=== PATIENT | female | born 1950 | race Caucasian/White ===

== ENCOUNTER 2016-11-17 08:00 | Outpatient (CLI) | payer MEDICARE, MEDICAID | END 2016-11-17 08:01 | disposition home or self-care (01) | DX: N39.0 Urinary tract infection, site not specified (principal) ==

== ENCOUNTER 2016-11-24 14:45 | Outpatient (CLI) | payer MEDICARE, MEDICAID | END 2016-11-24 14:46 | disposition home or self-care (01) | DX: L89.43 Pressure ulcer of contiguous site of back, buttock and hip, stage 3 (principal) ==

== ENCOUNTER 2017-04-10 13:40 | Outpatient (CLI) | payer MEDICARE, MEDICAID ==
[2017-04-10 17:38] LABS: BILIRUBIN,URINE NEGATIVE (NEGATIVE)
[2017-04-10 17:40] LABS: UA w/ MICROSCOPIC CHARGE YES
[2017-04-10 17:48] LABS: UR CULTURE IF IND INDICATED; WBC,URINE >25 /HPF (0-5)
== END 2017-04-10 13:41 | disposition home or self-care (01) ==
LOC: LAB.R 13:40
PROVIDERS: ATTEND Family Medicine
DX: N39.0 Urinary tract infection, site not specified (principal)
CPT/HCPCS: 81001; 81003; 87077; 87086

== ENCOUNTER 2017-06-17 14:50 | Outpatient (CLI) | payer MEDICARE, MEDICAID ==
[2017-06-17 14:13] LABS: BILIRUBIN,URINE NEGATIVE (NEGATIVE); PH,URINE 7.5 PH (5.0-7.5)
[2017-06-17 14:16] LABS: UA w/ MICROSCOPIC CHARGE YES
[2017-06-17 14:17] LABS: WBC,URINE >25 /HPF (0-5)
== END 2017-06-17 14:51 | disposition home or self-care (01) ==
LOC: LAB.R 14:50
PROVIDERS: ATTEND Family Medicine
DX: N39.0 Urinary tract infection, site not specified (principal)
CPT/HCPCS: 81001; 81003

== ENCOUNTER 2017-07-01 08:00 | Outpatient (CLI) | payer MEDICARE, MEDICAID | END 2017-07-01 08:01 | disposition home or self-care (01) | LOC: LAB.R 08:00 | PROVIDERS: ATTEND Family Medicine | DX: L89.94 Pressure ulcer of unspecified site, stage 4 (principal) | CPT/HCPCS: 87070; 87077; 87205 ==

== ENCOUNTER 2017-07-29 10:30 | Outpatient (CLI) | payer MEDICARE, MEDICAID ==
[2017-07-29 18:28] LABS: ALBUMIN 3.7 g/dL (3.2-5.5)
== END 2017-07-29 10:31 | disposition home or self-care (01) ==
LOC: LAB.R 10:30
PROVIDERS: ATTEND Family Medicine
DX: L89.43 Pressure ulcer of contiguous site of back, buttock and hip, stage 3 (principal)
CPT/HCPCS: 82040; 84134

== ENCOUNTER 2017-10-01 21:24 | Outpatient (CLI) | payer MEDICARE, MEDICAID | END 2017-10-01 21:25 | disposition EMS.NT | LOC: EMS 21:24 | PROVIDERS: ATTEND Surgery | DX: R58 Hemorrhage, not elsewhere classified (principal) ==

== ENCOUNTER 2017-10-07 13:20 | Outpatient (CLI) | payer MEDICARE, MEDICAID ==
[2017-10-07 14:17] LABS: MUDS CUTOFF CONCENTRATIONS CUTOFF CONC BELOW:
[2017-10-08 15:59] LABS: AMPHETAMINE SCREEN,URINE NEGATIVE (NEGATIVE); BENZODIAZEPINES SCREEN, URINE POSITIVE (NEGATIVE); COCAINE SCREEN URINE NEGATIVE (NEGATIVE); METHADONE SCREEN, URINE NEGATIVE (NEGATIVE); METHAMPHETAMINES SCREEN, URINE NEGATIVE (NEGATIVE); OPIATE SCREEN, URINE NEGATIVE (NEGATIVE); OXYCODONE SCREEN, URINE NEGATIVE (NEGATIVE); PROPOXYPHENE SCREEN, URINE NEGATIVE (NEGATIVE); TRICYCLIC ANTIDEPRESSANT,URINE NEGATIVE (NEGATIVE)
== END 2017-10-07 13:21 ==
LOC: LAB.R 13:20
PROVIDERS: ATTEND Nurse Practitioner Family
DX: Z79.891 Long term (current) use of opiate analgesic (principal)
CPT/HCPCS: 80306

== ENCOUNTER 2017-11-27 15:00 | Outpatient (CLI) | payer MEDICARE, MEDICAID ==
[2017-11-27 17:40] LABS: BILIRUBIN,URINE NEGATIVE (NEGATIVE); GLUCOSE, URINE (UA) NEGATIVE (NEGATIVE); KETONES,URINE (UA) NEGATIVE (NEGATIVE); LEUKOCYTE ESTERASE, URINE SMALL (NEGATIVE); NITRITE,URINE POSITIVE (NEGATIVE); OCCULT BLOOD,URINE TRACE-INTA (NEGATIVE); PH,URINE 6.5 PH (5.0-7.5); PROTEIN,URINE NEGATIVE (NEGATIVE); UROBILINOGEN,URINE 0.2 (NORMAL) E.U./dL (NORMAL)
[2017-11-27 17:50] LABS: AMORPHOUS SEDIMENT,UR Rare /LPF; BACTERIA,URINE Many /HPF (None Seen); CLARITY,URINE CLOUDY (CLEAR); SQUAMOUS EPITHELIAL CELL,UR RARE Squamous (<= Few); WBC CLUMPS,URINE PRESENT
== END 2017-11-27 15:01 | disposition home or self-care (01) ==
LOC: LAB.R 15:00
PROVIDERS: ATTEND Nurse Practitioner Family
DX: N39.0 Urinary tract infection, site not specified (principal)
CPT/HCPCS: 81001; 87077; 87086

== ENCOUNTER 2018-01-13 08:00 | Outpatient (CLI) | payer MEDICARE, MEDICAID ==
[2018-01-13 21:49] LABS: BASOPHILS # (AUTO) 0.1 10^3/uL (0.0-0.1); EOSINOPHILS # (AUTO) 0.4 10^3/uL (0.0-0.7); HGB - HEMOGLOBIN 8.8 g/dL (12.0-16.0); LYMPHOCYTES # (AUTO) 2.5 10^3/uL (1.5-3.5); LYMPHOCYTES % (AUTO) 20.2 %; MEAN CORPUSCULAR HGB CONC 31.9 g/dL (32.0-36.0); MEAN CORPUSCULAR VOLUME 81.5 fL (81.0-99.0); MEAN PLATELET VOLUME 8.8 fL (7.9-10.8); MONOCYTES # (AUTO) 0.8 10^3/uL (0.0-1.0); MONOCYTES % (AUTO) 6.8 %; NEUTROPHILS # (AUTO) 8.5 10^3/uL (1.5-6.6); PLT - PLATELET COUNT 516 10^3/uL (130-450); RED BLOOD COUNT 3.39 10^6/uL (4.20-5.40); RED CELL DISTRIBUTION WIDTH 15.3 % (12.0-15.0); WHITE BLOOD COUNT 12.3 x10^3/uL (4.8-10.8)
[2018-01-13 22:16] LABS: ALBUMIN/GLOBULIN RATIO 0.7 (1.0-2.2); ALKALINE PHOSPHATASE 84 IU/L (42-121); ALT ALANINE AMINOTRANSFERASE 12 IU/L (10-60); AST ASPARTATE AMINOTRANSFERASE 19 IU/L (10-42); BILIRUBIN,TOTAL < 0.2 mg/dL (0.2-1.0); BUN - BLOOD UREA NITROGEN 14 mg/dL (6-20); CALCIUM 8.7 mg/dL (8.5-10.3); CARBON DIOXIDE - CO2 32 mmol/L (21-32); CHLORIDE 96 mmol/L (101-111); CREATININE 0.3 mg/dL (0.4-1.0); GFR - MDRD 221 (>89); GLUCOSE 117 mg/dL (70-100); SODIUM 135 mmol/L (135-145); TOTAL PROTEIN 7.4 g/dL (6.7-8.2)
[2018-01-13 22:22] LABS: THYROID STIMULATING HORMONE 2.33 uIU/mL (0.34-5.60)
[2018-01-14 12:11] LABS: FERRITIN 11.3 ng/mL (11.0-306.8)
== END 2018-01-13 23:59 | disposition home or self-care (01) ==
LOC: LAB.R 08:00
DX: G35 Multiple sclerosis (principal); D64.9 Anemia, unspecified
CPT/HCPCS: 80053; 82728; 84443; 85025

== ENCOUNTER 2018-02-13 08:00 | Outpatient (CLI) | payer MEDICARE, MEDICAID ==
[2018-02-14 00:28] LABS: BASOPHILS # (AUTO) 0.1 10^3/uL (0.0-0.1); BASOPHILS % (AUTO) 0.9 %; EOSINOPHILS # (AUTO) 0.4 10^3/uL (0.0-0.7); EOSINOPHILS % (AUTO) 3.8 %; LYMPHOCYTES # (AUTO) 2.7 10^3/uL (1.5-3.5); LYMPHOCYTES % (AUTO) 22.7 %; MEAN CORPUSCULAR HEMOGLOBIN 24.5 pg (27.0-31.0); MEAN CORPUSCULAR HGB CONC 30.7 g/dL (32.0-36.0); MEAN CORPUSCULAR VOLUME 79.9 fL (81.0-99.0); MEAN PLATELET VOLUME 8.5 fL (7.9-10.8); MONOCYTES % (AUTO) 8.6 %; NEUTROPHILS # (AUTO) 7.5 10^3/uL (1.5-6.6); PLT - PLATELET COUNT 392 10^3/uL (130-450); RED BLOOD COUNT 3.66 10^6/uL (4.20-5.40); RED CELL DISTRIBUTION WIDTH 16.7 % (12.0-15.0); WHITE BLOOD COUNT 11.8 x10^3/uL (4.8-10.8)
== END 2018-02-13 08:01 ==
LOC: LAB.R 08:00
DX: D64.9 Anemia, unspecified (principal)
CPT/HCPCS: 82728; 85025

== ENCOUNTER 2018-03-11 10:45 | Outpatient (CLI) | payer MEDICARE, MEDICAID ==
--- NOTE | 2018-03-11 18:49 | CONSULTATION NOTE ---
Palliative Care Consultation - Referral Referring Provider: Dr. Vega Liz Time of Visit: 2719-4695 Referral setting: [facility] Referral Reason: Multiple Sclerosis - Information Sources Records reviewed: Previous records reviewed History/Review of Systems obtained from: Patient Exam limitations: Clinical condition (patient with memory deficits; able to engage but ROS difficult) - History of Present Illness Brief History of Present Illness: This is a 67-year-old female with multiple sclerosis, defined as latent stage, has known neurogenic bladder and neurogenic bowel. She has long-standing chronic pain, as well as recurrent pressure ulcers. She is mostly bedbound, she does have a wheelchair that she is able to go to meals in, and is up several times a day. Patient does present with significant neuropathic pain, she is on a baclofen pump, her pain is mostly sharp shooting ends spastic. She is currently on fentanyl 25 mcg patch, duloxetine 60 mg tablets, gabapentin 100 mg in the a.m. and 300 mg in the p.m. and using hydrocodone 5/325 mg a acetaminophen half tab-1 every 4 hours for breakthrough pain. Patient reports through the day her pain increases, is mostly related to her fatigue, she has had the challenge of training the caregivers help us to care, move her, and adjust her pillows for relief. She currently is satisfied with her current regimen, the neurology clinic manages her baclofen pump, but she has many other multiple healthcare problems going on. She is currently being worked up for her anemia, she is due to have a CT scan, Cologuard, and follow-up with the surgeon. She has a appointment with the urologist, her Christensen catheter came out, it has not been replaced. She does have known urinary retention, she has had a catheter since 2004, she denies any pain or discomfort at this time, but is at high risk for retention. She describes the episode as the "Christensen fell out". She also has neurogenic bowel, she does use Enemeez 3 times a week, has chronic rectal pain and hemorrhoids, continues to struggle with constipation.She is on multiple bowel meds as well Patient does report she has poor short-term memory, she is able to communicate make her care needs known, but is difficulty tracking and overseeing her care. 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 denies: Indwelling catheter (currently removed) HEENT: reports: None Psych: reports: Depression, Anxiety Musculoskeletal: reports: Other (peripheral neuropathy and spasticity) Derm: reports: Other (chcf issues with pressure ulcers, currently with Stage III treated by [facility]) MRSA Hx?: No - Past Surgical History General: reports: Colonoscopy Ortho: reports: Other - Substance History Use: Uses substance without health or social issues: NONE, Tobacco (history of heavy smoking 2 packs a day stopped in 1999) Social History - Living Situation Living arrangement: senior living ([facility], is unable to meet her care needs at home. She was being supported for many years with [facility] and , and family support, her on hospice a few years ago. there have been many financial stressors related to meeting her care needs and finding placement) Family History - Family History Family History: Mother: (mother of lung cancer; father of CVA; brother Hep c), Father: , Brother: Medications/Allergies - Medications Home Medications: Ambulatory Orders Medication Instructions Recorded Confirmed Lovastatin 10 mg PO DAILY 06/07/14 03/12/18 hydroCHLOROthiazide 25 mg PO DAILY 06/07/14 03/12/18 [Hydrochlorothiazide] Duloxetine HCl 60 mg PO DAILY 05/18/15 03/12/18 HYDROcod/ACETAM 5/325 [Conetoe 5/325] 1 - 2 ea PO Q6H PRN #15 tablet MDD 05/18/15 03/12/18 3 tabs diazePAM [Diazepam] 2.5 mg PO DAILY 05/18/15 03/12/18 Acetaminophen [Tylenol Extra 500 - 1,000 mg PO Q6HR PRN 01/28/18 03/12/18 Strength] Aspirin [Adult Aspirin] 81 mg PO DAILY 01/28/18 03/12/18 Baclofen [Lioresal Intrathecal] 59.2 mcg IT Q1HR 01/28/18 03/12/18 Benzocaine [Zilactin-B] 1 applic ORAL Q6HR PRN 01/28/18 03/12/18 Bisacodyl 5 mg PO DAILY 01/28/18 03/12/18 Bisacodyl Supp [Dulcolax Supp] 1 supp UT DAILY PRN 01/28/18 03/12/18 Cholecalciferol (Vitamin D3) 2,000 unit PO DAILY 01/28/18 03/12/18 [Vitamin D] Diclofenac Sodium [Voltaren] 2 - 4 gm TOP TID PRN MDD 32gm 01/28/18 03/12/18 Ferrous Gluconate [Ferrous 240 mg PO DAILY 01/28/18 03/12/18 Gluconate] Gabapentin [Neurontin] 100 mg PO .1200 01/28/18 03/12/18 Gabapentin [Neurontin] 300 mg PO DAILY PM 01/28/18 03/12/18 Lactobacillus Acidophilus 1 cap PO DAILY 01/28/18 03/12/18 [Digestive Probiotic] Loperamide HCl [Imodium A-D] 2 mg PO ONCE PRN 01/28/18 03/12/18 Mupirocin [Centany] 1 applic TOP ONCE [facility] wound care 01/28/18 03/12/18 Nystatin [Nystatin] 1 applic TOP TID 01/28/18 03/12/18 Oxybutynin Chloride [Ditropan Xl] 5 mg PO DAILY 01/28/18 03/12/18 Polyethylene Glycol 3350 [Miralax] 17 gm PO DAILY 01/28/18 03/12/18 Proctozone-Hc Cream 1 applic UT BID 01/28/18 03/12/18 Senna [Senokot] 1 - 4 tab PO Q8HR PRN 01/28/18 03/12/18 Simethicone [Gas Relief] 1 - 2 tab.chew PO PRN PRN 01/28/18 03/12/18 Zinc Sulfate 220 mg PO DAILY 01/28/18 03/12/18 diazePAM [Valium] 2.5 mg PO Q8HR PRN MDD 3 doses 01/28/18 03/12/18 fentaNYL [Fentanyl 75mcg patch] 25 mcg TD .72 01/28/18 03/12/18 Enemeez Mini 1 bottle UT .Q2 DAYS 03/12/18 - Allergies Allergies/Adverse Reactions: Allergies Allergy/AdvReac Type Severity Reaction Status Date / Time No Known Drug Allergies Allergy Unverified 09/26/13 17:49 Review of Systems - Constitutional Constitutional: reports: Fatigue (easily fatigued with prolonged activity or conversation), Weight loss - Eyes Eyes: reports: Vision loss (going to see eye doctor; multiple issues just taking care one at a time) - Ears, Nose & Throat Ears, Nose & Throat: reports: Hearing loss (mild), Dental decay (has severe decay; has follow up with [facility]) - Cardiovascular Cardiovascular: reports: Exertional dyspnea, Decr. exercise tolerance - Respiratory Respiratory: reports: SOB with exertion. denies: SOB at rest - Gastrointestinal Gastrointestinal: reports: Constipation (neurogenic bowel using enemeez qod), Nausea, Early satiety - Genitourinary Genitourinary: reports: Incontinence, Other (patient with history of urinary retention secondary to neurogenic bladder; has been on christensen since 2004; recently "fell out" concern for erosion/patient with spasms, freq UTIs; and denies bladder distention; to see urologist next Thursday for work up) - Musculoskeletal Musculoskeletal: reports: Muscle pain, Back pain, Muscle aches, Stiffness, Limited range of motion, Muscle weakness, Transfer issues (uses chayito to get into life), Other (spasticity of all extremeties including facial twitching at times) - Integumentary Integumentary: reports: Dryness, Other (wound on left ishium) - Neurological Neurological: reports: Memory problems (can speak to her and now; poor recall of sequence of events and time-did not know how long had been here; is able to have a conversation but poor recall of conversations in past) - Psychiatric Psychiatric: reports: Depression, Anxiety - Hematologic/Lymphatic Hematologic/Lymphatic: reports: Anemia (hct 29.3), Recurrent infections (UTIs) - All Other Systems All Other Systems: reports: Reviewed and negative Physical Exam - Vital Signs Temperature: 97.3 C Pulse Rate: 77 Respiratory Rate: 18 O2 Saturation: 96 (ra @ rest) Blood Pressure: 110/72 - Physical Exam General Appearance: positive: No acute distress, Lethargic Eyes Bilateral: positive: Normal inspection ENT: positive: No signs of dehydration, Other (poor dentition) Neck: positive: Trachea midline, Stiff neck (some flexion stiffening hyperextension) Cardiovascular: positive: Regular rate & rhythm Respiratory: positive: Diminished in bases Abdomen: positive: Non-tender, Soft, Nml bowel sounds, Distended Skin: positive: Pallor, Dryness, Wound (dressing soaked in urine; shallow wound edges rolled/ periwound pink;) Extremities: positive: No pedal edema Neurologic/Psychiatric: positive: Disoriented to time, Weakness, Depressed mood/ affect, Flat affect Palliative Care - POLST Patient has POLST: Yes POLST Status: DNR, Selective Treatment Pain: Pain unchanged, Location (see HPI) Tiredness/Fatigue: Severe (7-10) Drowsiness/Sedation: Moderate (4-6) Nausea: None Depression: Moderate (4-6) Anxiety: Moderate (4-6) Dyspnea: Mild (1-3) Anorexia: Mild (1-3) Sleep: Variable sleep pattern Constipation: Yes, Opoid induced, Intermittent constipation Feelings of wellbeing/Perceived Quality of Life: Fair, Acceptable, Worsening Performance Status: Patient is dependent for all ADLs, she is able to self feed. There is dependent with a Chayito lift to her wheelchair. She does receive bathing from the facility, she does have family members that visit. She does feel quite isolated. She does need to do quite a lot of cueing and directing of staff as far as positioning and caring for her. She finds this somewhat fatiguing but appreciates the support - Palliative Care Discussion: Patient actually quite pragmatic and reflective of [facility]. She understands her situation in the context that she is deteriorating, she does need a higher level of care. It has been a difficult transition, and would welcome further support as far as decreased isolation. She is familiar with [facility] the social media manager from the home health arena, would be interested in follow-up from the gauge maker apprentice as well as a volunteer. Patient fatigues quite easily, will further define her goals of care moving forward. She currently is working on multiple health issues, hoping to improve her quality of life. Results - Lab Results Lab results reviewed: Yes Impression and Recommendations - Palliative Care Impression: This is a daniela 67-year-old woman with MS, both neurogenic bowel and bladder, now acutely with severe anemia with a hematocrit of 29.3, she is currently being worked up. She also has long-term chronic pain and spasticity as a result of her disease process, chronic constipation, and decreased functional status with increased dependence on staff. She is a [facility] the [facility], as she is trying to adjust his transition from the home setting. Palliative care to provide support for pain and symptom management as well as coordination of care and increased psychosocial support for decreased isolation Recommendations/Counseling Done: 1. Chronic pain secondary to her multiple sclerosis. Patient on a fairly complicated regimen, she is currently satisfied with this, will continue to explore if there is a way to simplify this in the future. Patient with multiple changes, will leave currently. 2. Neurogenic bladder. Patient is to see the urologist next Thursday, I did assisted with the paperwork because she is unable to do this independently. Patient has long-term had urinary retention with Christensen catheter, patient will need to be monitored closely for discomfort, UTIs if patient still retaining, and Christensen catheter replaced if indicated. 3. Neurogenic bowel. Patient on bowel program she feels currently is working no changes suggested. 4. Depression this is multifactorial in origin. Will have her reestablish with medical palliative care social media manager, introduced gauge maker apprentice and volunteer. Patient is new to me, will establish rapport, patient is feeling overwhelmed at all the recent changes. 5. Advanced care planning. Patient does have a JULI[address]N ST in place, her DPOAE is her son, initiate conversation around goals of care, patient with significant fatigue level will revisit at our next visit. Time Spent: 65 minutes with good 50% of this done in counseling coordination of care with staff, anticipatory guidance introduction of palliative care and evaluation of current needs and new setting
== END 2018-03-11 10:46 | disposition home or self-care (01) ==
LOC: PC 10:45
PROVIDERS: ATTEND Nurse Practitioner Adult Health
DX: Z51.5 Encounter for palliative care (principal); G89.29 Other chronic pain; G35 Multiple sclerosis; N31.9 Neuromuscular dysfunction of bladder, unspecified; N39.498 Other specified urinary incontinence; K59.2 Neurogenic bowel, not elsewhere classified; F32.9 Major depressive disorder, single episode, unspecified; D64.9 Anemia, unspecified; R41.3 Other amnesia; G62.9 Polyneuropathy, unspecified; L89.893 Pressure ulcer of other site, stage 3; K58.9 Irritable bowel syndrome, unspecified; K59.03 Drug induced constipation; T40.2X5A Adverse effect of other opioids, initial encounter; Z74.01 Bed confinement status; Z79.891 Long term (current) use of opiate analgesic; Z79.899 Other long term (current) drug therapy; Z87.891 Personal history of nicotine dependence; Z87.440 Personal history of urinary (tract) infections; Z66 Do not resuscitate
CPT/HCPCS: 99306

== ENCOUNTER 2018-03-18 11:01 | Outpatient (CLI) | payer MEDICARE, MEDICAID ==
[2018-03-18] MEDS ORDERED: IOPAMIDOL-300 50 ML VIAL ONE (11:05)
[2018-03-18] MEDS ORDERED: IOPAMIDOL-300 100 ML VIAL ONE (11:05)
[2018-03-18 11:35] LABS: CREATININE 0.3 mg/dL (0.4-1.0)
--- NOTE | 2018-03-18 14:15 | CT Report ---
Reason: ANEMIA Procedure Date: 03/18/2018 Accession Number: [id number] / [id number] Procedure: CT - Abdomen/Pelvis W/ CPT Code: FULL RESULT: EXAM: CT ABDOMEN AND PELVIS EXAM DATE: 03/18/2018 01:10 PM. CLINICAL HISTORY: Anemia. COMPARISONS: None. TECHNIQUE: Routine helical CT imaging was performed through the abdomen and pelvis. IV contrast: Isovue 300 100 mL. Enteric contrast: Yes. Reconstructions: Coronal and sagittal. In accordance with CT protocol optimization, one or more of the following dose reduction techniques were utilized for this exam: automated exposure control, adjustment of mA and/or KV based on patient size, or use of iterative reconstructive technique. FINDINGS: Lung Bases: Dependent changes. Liver: Normal. No masses. Gallbladder/Bile Ducts: Unremarkable. Spleen: Normal. Pancreas: Normal. Adrenal Glands: 2.7 x 1.9 cm indeterminate left adrenal mass. Right adrenal is normal. Kidneys: Normal. No masses or hydronephrosis. Peritoneal Cavity/Bowel: Asymmetric circumferential thickening of the anorectal region. No free fluid, free air or adenopathy. No other masses or acute inflammatory process. Pelvic Organs: Fibroid uterus. Vasculature: No aneurysms or other significant abnormality. Bones: Levoconvex lumbar scoliosis centered about L3. Other: Intrathecal pump versus neurostimulator device is noted. IMPRESSION: Asymmetric circumferential anorectal thickening is suspicious. Recommend direct visualization with colonoscopy or anoscopy. Finding is within approximately 3 cm of the external sphincter. Indeterminate left adrenal mass. Further workup would depend on anoscopy/colonoscopy findings. [facility]
[2018-03-18] MEDS ORDERED: IOPAMIDOL-300 50 ML VIAL PO ONE (15:17)
[2018-03-18] MEDS ORDERED: IOPAMIDOL-300 100 ML VIAL IVP ONE (15:17)
== END 2018-03-18 11:02 | disposition home or self-care (01) ==
LOC: LAB 11:01
PROVIDERS: ATTEND Surgery
DX: D50.9 Iron deficiency anemia, unspecified (principal); E27.9 Disorder of adrenal gland, unspecified; K62.89 Other specified diseases of anus and rectum
CPT/HCPCS: 36415; 74177; 82565; Q9967

== ENCOUNTER 2018-03-25 16:22 | Outpatient (CLI) | payer MEDICARE, MEDICAID ==
--- NOTE | 2018-03-25 17:36 | CONSULTATION NOTE ---
Palliative Care Follow Up - Referral Referring Provider: Dr. Vega Liz Time of Visit: [id number] Referral setting: [facility] (has lived at [facility] since December) Referral Reason: Multiple Sclerosis - Information Sources Records reviewed: RN notes reviewed, Previous records reviewed History/Review of Systems obtained from: Patient, Caregiver (follow up with [facility]) Exam limitations: Clinical condition (patient with STM issues; not always reliable for details; able to engage and participate in conversation and still make her own decisions) - History of Present Illness Update Brief HPI Update: This is a 67-year-old female with multiple sclerosis, defined as latent stage, has known neurogenic bladder and neurogenic bowel. She does have long-standing chronic pain with spasticity, has known recurrent pressure ulcers. She is mostly bedbound, does have a wheelchair that she is able to go to meals and, does try to be up several times a day. She does have significant neuropathic pain, she is on a baclofen pump, fentanyl 25 mcg patch, duloxetine 60 mg, gabapentin 100 mg in the a.m. and 300 in the p.m., and using hydrocodone 5 mg/ 325 mg 1/2-1 tab every 4 hours. She has had increased pain and pressure, would attribute this to long-standing neurogenic bladder. She had seen the urologist who recommended putting back on the catheter, and catheter was put in she did have 250 mils drained, she has had a catheter since 2004, bladder should be shrunk and have minimal capacity. I suspect she will feel much more comfortable. She is also currently being worked up for anemia. She had a recent CT scan with findings that include adrenal gland 2.7 x 1.9 indeterminate left adrenal mass, as well as a finding of asymmetric circumferential thickening of the anorectal region. With no masses or acute inflammatory process. Recommendations included direct visualization with colonoscopy or anoscopy. Would like to point out she has had neurogenic bowel and bladder problems for over a decade. She has been managed with 3 times a week enemas, as well as twice daily Protozone HC for several years. Patient is somewhat bowel fixated, patient told me she had not had a bowel movement for 8 days, went back and looked at records she had been having a bowel movement every 2-3 days. Her family had told clinical staff that patient often is not correct and perseverates over this fairly regularly Social History - Living Situation Living arrangement: retirement Support System[place] for her. She does have a son and [id number] who had been taking care of her along with andrzej prior to her placement in December. Medications/Allergies - Medications Home Medications: Ambulatory Orders Medication Instructions Recorded Confirmed Lovastatin 10 mg PO DAILY 06/07/14 03/26/18 hydroCHLOROthiazide 25 mg PO DAILY 06/07/14 03/26/18 [Hydrochlorothiazide] Duloxetine HCl 60 mg PO DAILY 05/18/15 03/26/18 HYDROcod/ACETAM 5/325 [[place] 5/325] 1 - 2 ea PO Q6H PRN #15 tablet MDD 05/18/15 03/26/18 3 tabs diazePAM [Diazepam] 2.5 mg PO 2000 05/18/15 03/26/18 Acetaminophen [Tylenol Extra 500 - 1,000 mg PO Q6HR PRN 01/28/18 03/26/18 Strength] Aspirin [Adult Aspirin] 81 mg PO DAILY 01/28/18 03/26/18 Baclofen [Lioresal Intrathecal] 59.2 mcg IT Q1HR 01/28/18 03/26/18 Benzocaine [Zilactin-B] 1 applic ORAL Q6HR PRN 01/28/18 03/26/18 Bisacodyl 5 mg PO DAILY 01/28/18 03/26/18 Bisacodyl Supp [Dulcolax Supp] 1 supp [place] DAILY PRN 01/28/18 03/26/18 Cholecalciferol (Vitamin D3) 2,000 unit PO DAILY 01/28/18 03/26/18 [Vitamin D] Diclofenac Sodium [Voltaren] 2 - 4 gm TOP TID PRN MDD 32gm 01/28/18 03/26/18 Ferrous Gluconate [Ferrous 240 mg PO DAILY 01/28/18 03/26/18 Gluconate] Gabapentin [Neurontin] 100 mg PO .1200 01/28/18 03/26/18 Gabapentin [Neurontin] 300 mg PO DAILY PM 01/28/18 03/26/18 Lactobacillus Acidophilus 1 cap PO DAILY 01/28/18 03/26/18 [Digestive Probiotic] Loperamide HCl [Imodium A-D] 2 mg PO ONCE PRN 01/28/18 03/26/18 Oxybutynin Chloride [Ditropan Xl] 5 mg PO DAILY 01/28/18 03/26/18 Polyethylene Glycol 3350 [Miralax] 17 gm PO DAILY 01/28/18 03/26/18 Proctozone-Hc Cream 1 applic [place] BID 01/28/18 03/26/18 Senna [Senokot] 1 - 4 tab PO Q8HR PRN 01/28/18 03/26/18 Simethicone [Gas Relief] 1 - 2 tab.chew PO PRN PRN 01/28/18 03/26/18 Zinc Sulfate 220 mg PO DAILY 01/28/18 03/26/18 diazePAM [Valium] 2.5 mg PO Q8HR PRN MDD 3 doses 01/28/18 03/26/18 fentaNYL [Fentanyl 75mcg patch] 25 mcg TD .72 HOURS 01/28/18 03/26/18 Enemeez Mini 1 bottle [place] .MWF 03/12/18 03/26/18 - Allergies Allergies/Adverse Reactions: Allergies Allergy/AdvReac Type Severity Reaction Status Date / Time No Known Drug Allergies Allergy Unverified 09/26/13 17:49 Review of Systems - Constitutional Constitutional: reports: Fatigue (Hbg 9.0), Weight stable (on Med [place]). denies : Fever - Eyes Eyes: reports: Vision loss - Ears, Nose & Throat Ears, Nose & Throat: reports: Hearing loss (mild), Dental decay (getting regulary visits to [facility]) - Cardiovascular Cardiovascular: reports: Decr. exercise tolerance (fatigues regularly) - Respiratory Respiratory: reports: SOB with exertion. denies: SOB at rest - Gastrointestinal Gastrointestinal: reports: Other (on bowel program of [facility]; having) - Genitourinary Genitourinary: reports: Dysuria, Incontinence, Other (abdomen taut/tender; had christensen placed with 250 ml returned of clear yellow urine; UA cancelled) - Musculoskeletal Musculoskeletal: reports: Muscle pain, Muscle aches, Stiffness, Limited range of motion, Muscle weakness, Transfer issues (chayito lift to wheelchair for meals) - Integumentary Integumentary: reports: Other (see [facility] wound care for pressure ulcer) - Neurological Neurological: reports: General weakness, Numbness, Memory problems - Psychiatric Psychiatric: reports: Anxiety - Hematologic/Lymphatic Hematologic/Lymphatic: reports: Anemia - All Other Systems All Other Systems: reports: Reviewed and negative Physical Exam - Vital Signs Temperature: 97.5 C Pulse Rate: 80 Respiratory Rate: 18 O2 Saturation: 92 (ra @ rest) Blood Pressure: 92/60 - Physical Exam General Appearance: positive: No acute distress Eyes Bilateral: positive: Normal inspection ENT: positive: No signs of dehydration, Other (poor oral dentition;) Neck: positive: No JVD, Trachea midline, Stiff neck (mild hyperextension) Cardiovascular: positive: Regular rate & rhythm Respiratory: positive: Diminished in bases. negative: Wheezes, Rales, Rhonchi Abdomen: positive: Tenderness, Distended Skin: positive: Pallor, Dryness, Pressure wound (drsg intact), Other (reports skin nodule at right of neck; nontender but "bothers her" to get derm referral) Extremities: positive: Pedal edema (trace) Neurologic/Psychiatric: positive: Mood/affect nml, Disoriented to time, Weakness , Slurred/abnml speech (difficult speech with increased fatigue) Palliative Care - POLST Patient has POLST: Yes POLST Status: DNR, Selective Treatment Pain: Pain worsening, Location (abdominal spasticity worsened with pressure per her report; "underneath" my pump) Tiredness/Fatigue: Severe (7-10) Drowsiness/Sedation: Moderate (4-6) Nausea: None Depression: Moderate (4-6) Anxiety: Mild (1-3) (difficulty tracking things; worried about finances) Dyspnea: Mild (1-3) Anorexia: Mild (1-3) Sleep: Sleeps well Constipation: Yes, Opoid induced, Intermittent constipation (patient report and logs do not match; will monitor for two weeks) Feelings of wellbeing/Perceived Quality of Life: Good, Acceptable, Worsening Performance Status: Patient dependent on staff for turning on a regular basis, patient can self-feed , she is up for meals. She uses [employer] for transfers. They do her bathing as well as her laundry. She is able to make her needs known. - Palliative Care Discussion: Patient does feel somewhat out of control here, has difficulty tracking time and events. She can be present for her current situation and visit. Does have recall of visit at your urologist, feels like nothing happened there, In follow- up with staff did not bring her paperwork, nor did they have a [employer] lift so no exam done. Patient is trying to adjust, she has a fairly pragmatic approach to things. Would like to be able to track better we discussed some things that might be of help for her. Will initiate medical palliative care social group worker again she has been good support over the years. May be able to help her regain some sense of control. Patient does have a JULIÁN ST in place, DNA R and selective treatments. Patient is fairly realistic about her condition, but quite willing to continue to work on things that might improve her quality of life this all the recent appointments. Impression and Recommendations - Palliative Care Impression: This is a daniela 67-year-old woman with MS, latent stage, has both neurogenic bowel and bladder. She has long-term chronic pain and spasticity as a result of her disease process, chronic constipation, and continuing decreasing functional status with increased dependence on staff. Palliative care team to provide support for pain and symptom management as well as coordination of care and increased psychosocial support for her to be able to decrease isolation. Recommendations/Counseling Done: 1.Chronic pain secondary to her multiple sclerosis. Patient is on a fairly complicated regimen, she does feel her spasticity is increased with her urinary retention. Requested Christensen catheter placed at time of visit. We will continue to monitor for changes needed in the future. 2. Neurogenic bladder. Unclear why Christensen catheter has not been placed yet, she is a difficult cath per staff report. We will go ahead and try and redo this. Patient complaining of dysuria. Addendum they did get Christensen cath placed, with 250 mils of urine, patient has had a catheter since 2004, this should be considered most likely a fairly stretch for her neurogenic bladder. Urine was clear canceled UA. 3. Neurogenic bowel. Patient's bowel program is somewhat complex, unclear effectiveness. Will get more detailed information regarding bowel program, is due to follow-up with surgeon and colonoscopy. Most likely needs to have adjusted. Concern regarding long-term use of Proctosol HC. Has had CT scan, awaiting to follow-up with results with MD. 4. Depression, this is multifactorial in origin. Will have her reestablish with medical palliative care social group worker, and introduced truck sales manager and volunteer as available. Patient would like a notebook to build a track particular her bowel movements, doctor's appointments, in time. Along with other information for support. Will work with the medical palliative care social group worker to great a tool that will be of benefit for her 5. Fatigue. This is multifactorial in origin, including anemia, MS, depression , and deconditioning. We did discuss the role of therapies in the future, agreed to wait until workup for anemia completed. 6. Advanced care planning. Patient does have a JULIÁN ST in place, her DPOAE is her son, will continue to develop rapport and explore further her goals of care. Currently working on things that she is hoping will improve her quality of life, increase her energy, and decrease her discomfort. Time Spent: 60 minutes with greater than 50% of this done in counseling regarding pain and symptom management, and anticipatory guidance as well as coordination of care and Christensen placement.
== END 2018-03-25 16:23 | disposition home or self-care (01) ==
LOC: PC 16:22
PROVIDERS: ATTEND Nurse Practitioner Adult Health
DX: Z51.5 Encounter for palliative care (principal); G89.29 Other chronic pain; G35 Multiple sclerosis; N31.2 Flaccid neuropathic bladder, not elsewhere classified; Z96.0 Presence of urogenital implants; K59.2 Neurogenic bowel, not elsewhere classified; F32.9 Major depressive disorder, single episode, unspecified; R53.83 Other fatigue; E27.9 Disorder of adrenal gland, unspecified; Z79.82 Long term (current) use of aspirin; R06.09 Other forms of dyspnea; M62.81 Muscle weakness (generalized); K59.03 Drug induced constipation; T40.2X5A Adverse effect of other opioids, initial encounter; Z66 Do not resuscitate
CPT/HCPCS: 99310

== ENCOUNTER 2018-04-15 18:54 | Outpatient (CLI) | payer MEDICARE, MEDICAID ==
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
== END 2018-04-15 18:55 | disposition home or self-care (01) ==
LOC: PC 18:54
PROVIDERS: ATTEND Nurse Practitioner Adult Health
DX: Z51.5 Encounter for palliative care (principal); G35 Multiple sclerosis; K59.00 Constipation, unspecified; G89.29 Other chronic pain; R10.9 Unspecified abdominal pain; F32.9 Major depressive disorder, single episode, unspecified; Z96.0 Presence of urogenital implants; N31.9 Neuromuscular dysfunction of bladder, unspecified; K59.2 Neurogenic bowel, not elsewhere classified; K59.03 Drug induced constipation; T40.2X5D Adverse effect of other opioids, subsequent encounter; Z66 Do not resuscitate
CPT/HCPCS: 99309

== ENCOUNTER 2018-05-04 12:10 | Day surgery (SDC) | payer MEDICARE, MEDICAID ==
[2018-05-04] MEDS ORDERED: LACTATED RINGERS 1,000 ML IV ONE (12:20)
--- NOTE | 2018-05-04 13:33 | ANESTHESIA ---
Pre-Anesthesia VS, & Labs - Diagnosis Rectal Mass - Procedure Exam under anesthesia, rectal biopsies Vital Signs: Temp Pulse Resp BP Pulse Ox 36.8 C 94 16 124/109 H 96 05/04/18 12:52 05/04/18 12:52 05/04/18 12:52 05/04/18 12:52 05/04/18 12:52 Height 5 ft 3 in Weight (kg) 49.9 kg Body Mass Index 19.8 - NPO >8 hours - Is Patient ?: No - Lab Results Lab results reviewed: Yes Home Medications and Allergies Home Medications: Ambulatory Orders HYDROcod/ACETAM 5/325 [Noble 5/325] 0.5 tab PO Q6H PRN MDD 3 tabs 05/03/18 Lovastatin 10 mg PO DAILY 06/07/14 hydroCHLOROthiazide [Hydrochlorothiazide] 25 mg PO DAILY 06/07/14 Duloxetine HCl 60 mg PO DAILY 05/18/15 diazePAM [Diazepam] 2.5 mg PO DAILY PM 05/18/15 Acetaminophen [Tylenol Extra Strength] 500 - 1,000 mg PO Q6HR PRN 01/28/18 Aspirin [Adult Aspirin] 81 mg PO DAILY 01/28/18 Baclofen [Lioresal Intrathecal] 59.2 mcg IT Q1HR 01/28/18 Benzocaine [Zilactin-B] 1 applic ORAL Q6HR PRN 01/28/18 Bisacodyl 5 mg PO DAILY 01/28/18 Bisacodyl Supp [Dulcolax Supp] 1 supp OH DAILY PRN 01/28/18 Cholecalciferol (Vitamin D3) [Vitamin D] 2,000 unit PO DAILY 01/28/18 Diclofenac Sodium [Voltaren] 2 - 4 gm TOP TID PRN MDD 32gm 01/28/18 Ferrous Gluconate 240 mg PO DAILY 01/28/18 Gabapentin [Neurontin] 100 mg PO .1200 01/28/18 Gabapentin [Neurontin] 300 mg PO DAILY PM 01/28/18 Lactobacillus Acidophilus [Digestive Probiotic] 1 cap PO DAILY 01/28/18 Loperamide HCl [Imodium A-D] 2 mg PO ONCE PRN 01/28/18 Oxybutynin Chloride [Ditropan Xl] 15 mg PO DAILY 01/28/18 Polyethylene Glycol 3350 [Miralax] 17 gm PO DAILY 01/28/18 Proctozone-Hc Cream 1 applic OH BID 01/28/18 Senna [Senokot] 1 - 4 tab PO Q8HR PRN 01/28/18 Simethicone [Gas Relief] 1 - 2 tab.chew PO PRN PRN 01/28/18 fentaNYL [Fentanyl 75mcg patch] 25 mcg TD .72 HOURS 01/28/18 Enemeez Mini 1 bottle OH .QMWF 03/12/18 HYDROcod/ACETAM 5/325 [Noble 5/325] 0.5 tab PO Q6H PRN MDD 3 tabs 05/03/18 Allergies/Adverse Reactions: Allergies Allergy/AdvReac Type Severity Reaction Status Date / Time No Known Drug Allergies Allergy Unverified 09/26/13 17:49 Anes History & Medical History - Anesthetic History Anesthesia Complications: reports: No previous complications Family history of Anesthesia Complications: Denies Family history of Malignant Hyperthermia: Denies - Medical History Cardiovascular: reports: High cholesterol Pulmonary: reports: None Gastrointestinal: reports: Hemorrhoids, Other Urinary: reports: Incontinence, Chronic bladder infection, Other Neuro: reports: Peripheral neuropathy, Multiple sclerosis Musculoskeletal: reports: Other Endocrine/Autoimmune: reports: None Blood Disorders: reports: None Smoking Status: Former smoker - Surgical History General: Colonoscopy Orthopedic: Other Exam General: Alert, Oriented x3, Cooperative, No acute distress Dental: WNL Mouth Openin Fingerbreadth Neck Mobility: Reduced Mallampati classification: III Thyromental Distance: 4-6 cm Respiratory: Lungs clear, Normal breath sounds, No respiratory distress, No accessory muscle use Cardiovascular: Regular rate, Normal S1, Normal S2, No murmurs Mental/Cognitive Status: Alert/Oriented X3, Normal for patient Cognitive Status: Memory impairment Plan Anesthesia Type: General Consent for Procedure(s) Verified and Reviewed: Yes Code Status: Attempt Resuscitation ASA classification: 4-Incapacitating disease Is this case an emergency?: No
[2018-05-04 15:05] VITALS: BP 121/74
== END 2018-05-04 12:11 | disposition home or self-care (01) ==
LOC: SDS 12:10
PROVIDERS: ATTEND Surgery
PROC: 0DJD8ZZ Inspection of Lower Intestinal Tract, Via Natural or Artificial Opening Endoscopic (ICD-10-PCS; principal; 2018-05-04 13:15)
DX: R19.5 Other fecal abnormalities (principal); K64.8 Other hemorrhoids; K64.4 Residual hemorrhoidal skin tags; G35 Multiple sclerosis; G89.29 Other chronic pain; Z79.891 Long term (current) use of opiate analgesic; Z79.82 Long term (current) use of aspirin; Z79.899 Other long term (current) drug therapy; Z99.3 Dependence on wheelchair; Z87.891 Personal history of nicotine dependence
CPT/HCPCS: 45378; J7120

== ENCOUNTER 2018-05-10 15:00 | Outpatient (CLI) | payer MEDICARE, MEDICAID | END 2018-05-10 15:01 | disposition home or self-care (01) | LOC: LAB.R 15:00 | DX: L89.43 Pressure ulcer of contiguous site of back, buttock and hip, stage 3 (principal); L08.9 Local infection of the skin and subcutaneous tissue, unspecified | CPT/HCPCS: 87070; 87205 ==

== ENCOUNTER 2018-06-11 10:00 | Outpatient (CLI) | payer MEDICARE, MEDICAID ==
[2018-06-11 22:53] LABS: BASOPHILS # (AUTO) 0.1 10^3/uL (0.0-0.1); BASOPHILS % (AUTO) 0.5 %; EOSINOPHILS # (AUTO) 0.4 10^3/uL (0.0-0.7); EOSINOPHILS % (AUTO) 3.4 %; HGB - HEMOGLOBIN 10.3 g/dL (12.0-16.0); LYMPHOCYTES # (AUTO) 2.8 10^3/uL (1.5-3.5); LYMPHOCYTES % (AUTO) 23.1 %; MEAN CORPUSCULAR HEMOGLOBIN 26.3 pg (27.0-31.0); MEAN CORPUSCULAR HGB CONC 31.2 g/dL (32.0-36.0); MEAN CORPUSCULAR VOLUME 84.3 fL (81.0-99.0); MEAN PLATELET VOLUME 7.9 fL (7.9-10.8); MONOCYTES # (AUTO) 0.6 10^3/uL (0.0-1.0); MONOCYTES % (AUTO) 5.2 %; NEUTROPHILS # (AUTO) 8.2 10^3/uL (1.5-6.6); NEUTROPHILS % (AUTO) 67.8 %; PLT - PLATELET COUNT 393 10^3/uL (130-450); RED BLOOD COUNT 3.91 10^6/uL (4.20-5.40); RED CELL DISTRIBUTION WIDTH 16.7 % (12.0-15.0); WHITE BLOOD COUNT 12.1 x10^3/uL (4.8-10.8)
== END 2018-06-11 10:01 | disposition home or self-care (01) ==
LOC: LAB.R 10:00
DX: L89.43 Pressure ulcer of contiguous site of back, buttock and hip, stage 3 (principal)
CPT/HCPCS: 85025; 85651

== ENCOUNTER 2018-06-23 08:00 | Outpatient (CLI) | payer MEDICARE, MEDICAID ==
[2018-06-23 16:55] LABS: BILIRUBIN,URINE NEGATIVE (NEGATIVE); GLUCOSE, URINE (UA) NEGATIVE (NEGATIVE); KETONES,URINE (UA) NEGATIVE (NEGATIVE); LEUKOCYTE ESTERASE, URINE MODERATE (NEGATIVE); NITRITE,URINE NEGATIVE (NEGATIVE); OCCULT BLOOD,URINE SMALL (NEGATIVE); PH,URINE 7.5 PH (5.0-7.5); PROTEIN,URINE NEGATIVE (NEGATIVE); UROBILINOGEN,URINE 0.2 (NORMAL) E.U./dL (NORMAL)
[2018-06-23 17:51] LABS: CLARITY,URINE CLEAR (CLEAR)
[2018-06-23 17:53] LABS: BACTERIA,URINE Many /HPF (None Seen); RBC,URINE None Seen /HPF (0-5); SQUAMOUS EPITHELIAL CELL,UR NONE SEEN (<= Few); WBC CLUMPS,URINE PRESENT
== END 2018-06-23 23:59 | disposition home or self-care (01) ==
LOC: LAB.R 08:00
PROVIDERS: ATTEND Family Medicine
DX: N31.9 Neuromuscular dysfunction of bladder, unspecified (principal)
CPT/HCPCS: 81001; 81003

== ENCOUNTER 2018-07-02 08:00 | Outpatient (CLI) | payer MEDICARE, MEDICAID ==
[2018-07-02 19:44] LABS: BILIRUBIN,URINE NEGATIVE (NEGATIVE); GLUCOSE, URINE (UA) NEGATIVE (NEGATIVE); KETONES,URINE (UA) NEGATIVE (NEGATIVE); LEUKOCYTE ESTERASE, URINE LARGE (NEGATIVE); NITRITE,URINE POSITIVE (NEGATIVE); OCCULT BLOOD,URINE SMALL (NEGATIVE); PROTEIN,URINE NEGATIVE (NEGATIVE); UROBILINOGEN,URINE 0.2 (NORMAL) E.U./dL (NORMAL)
[2018-07-02 19:56] LABS: CLARITY,URINE CLOUDY (CLEAR)
[2018-07-02 19:58] LABS: AMORPHOUS SEDIMENT,UR Moderate /LPF; BACTERIA,URINE Many /HPF (None Seen); RBC,URINE 0-5 /HPF (0-5); SQUAMOUS EPITHELIAL CELL,UR NONE SEEN (<= Few)
== END 2018-07-02 23:59 | disposition home or self-care (01) ==
LOC: LAB.R 08:00
DX: N39.0 Urinary tract infection, site not specified (principal)
CPT/HCPCS: 81001; 81003; 87077; 87086; 87181

== ENCOUNTER 2018-07-19 11:30 | Outpatient (CLI) | payer MEDICARE, MEDICAID ==
--- NOTE | 2018-07-19 13:34 | CONSULTATION NOTE ---
Palliative Care Follow Up - Referral Referring Provider: Dr. Vega Liz Time of Visit: [id number] Referral setting: Residential Facility Referral Reason: MS/Stage III ischial decub - Information Sources Records reviewed: Previous records reviewed History/Review of Systems obtained from: Patient, Caregiver (Clinical staff) Exam limitations: Clinical condition (patient with short term memory issues) - History of Present Illness Update Brief HPI Update: This is a 68-year-old female with multiple sclerosis, defined as latent stage, known neurogenic bowel and neurogenic bladder. She has long-standing chronic pain with spasticity, and now presents with stage III open full-thickness Right ischial pressure ulcer that is not healing. Had improved slowly, but now Has tried new dressing, with increased maceration, rolled edges, depth though has improved from 3.4-2.5 cm as best we know given the difficulty measuring this area. Patient's main complaint continues to be severe fatigue, she reports this fluctuates, but starts out as tiredness, if she does not take rest send over does it progresses to severe fatigue, which takes 2-3 days of her to recover. She describes this as being physically weak, unable to tolerate activity, and emotionally feeling overwhelmed. Patient reports her current pain also fl uctuates, its abdominal pain radiating to the back with radiation around in a bandlike manner. She also reports pain starts at knees and radiates down legs. She does use breakthrough pain medication but "it only helps momentarily". She does have a Good catheter, she does have a history and continues to have recurrent bladder infections, these often manifest for her as dysuria. She was recently treated on 07/02, but continues to present with ongoing and progressive resistant organisms. Patient overall denies depression, does report anxiety, she has moved since I last seen her, does enjoy her current room. She feels like she is settling in, still continued to have trust issues, but is aware this is a permanent placement and feels like it gives her family axis to be able to visit. She does report weight loss, she attributes this though to continuing to have more more teeth pulled, and difficulty tolerating different foods and chewing. She denies any choking, and is interested in speaking with the dietitian about some modifications. We did discuss slow concern to change it to mechanical soft, as it may limit certain foods that she currently enjoys. Patient and workup for her anemia, did have a colonoscopy, though her Steve guard was positive her colonoscopy was negative, just showed internal and external hemorrhoids, and no rectal masses were found. She has since stopped the Enemeez, is currently being managed on her current bowel program and has had no reported rectal bleeding or discomfort.She has not had any recent follow-up labs, nor does it look like she had iron studies, though she has been on iron for the last few months. Given her level of fatigue, this is her main quality of life issue, we will go ahead and follow-up and make sure there is nothing fur ther as far as interventions to offer her. Social History - Living Situation [facility] arrangement: jail (patient has been resident last 7 months; is settling in and trying to adjust; Son is her DPOA-supported by her sister; is currently estranged from daughter) Medications/Allergies - Medications Home Medications: Ambulatory Orders Medication Instructions Recorded Confirmed Lovastatin 10 mg PO DAILY 06/07/14 07/19/18 hydroCHLOROthiazide 25 mg PO DAILY 06/07/14 07/19/18 [Hydrochlorothiazide] Duloxetine HCl 60 mg PO DAILY 05/18/15 07/19/18 diazePAM [Diazepam] 2.5 mg PO DAILY PM 05/18/15 07/19/18 Acetaminophen [Tylenol Extra 500 - 1,000 mg PO Q6HR PRN 01/28/18 07/19/18 Strength] Aspirin [Adult Aspirin] 81 mg PO DAILY 01/28/18 07/19/18 Bisacodyl 5 mg PO DAILY 01/28/18 07/19/18 Bisacodyl Supp [Dulcolax Supp] 1 supp CA DAILY PRN 01/28/18 07/19/18 Cholecalciferol (Vitamin D3) 2,000 unit PO DAILY 01/28/18 07/19/18 [Vitamin D] Diclofenac Sodium [Voltaren] 2 - 4 gm TOP TID PRN MDD 32gm 01/28/18 07/19/18 Ferrous Gluconate 240 mg PO DAILY 01/28/18 07/19/18 Gabapentin [Neurontin] 100 mg PO .1200 01/28/18 07/19/18 Gabapentin [Neurontin] 300 mg PO DAILY PM 01/28/18 07/19/18 Lactobacillus Acidophilus 1 cap PO DAILY 07/12/18 12/31/18 [Digestive Probiotic] Oxybutynin Chloride [Ditropan Xl] 15 mg PO DAILY 01/28/18 07/19/18 Polyethylene Glycol 3350 [Miralax] 17 gm PO DAILY 01/28/18 07/19/18 Proctozone-Hc Cream 1 applic CA BID 01/28/18 07/19/18 fentaNYL [Fentanyl 75mcg patch] 25 mcg TD .72 HOURS 01/28/18 07/19/18 HYDROcod/ACETAM 5/325 [[place] 5/325] 0.5 - 1 tab PO Q6H PRN MDD 3 tabs 05/03/18 1 Naloxone HCl 0.1 ml SLY PRN PRN 07/19/18 07/19/18 - Allergies Allergies/Adverse Reactions: Allergies Allergy/AdvReac Type Severity Reaction Status Date / Time No Known Drug Allergies Allergy Unverified 06/02/18 14:10 Review of Systems - Constitutional Constitutional: reports: Fatigue (feels this is most pronounced symptom; colonoscopy was negative; no further follow up done; most limiting as far as quality of life), Weakness, Weight loss (attributes to difficulty with chewing; has had multiple teeth pulled) - Eyes Eyes: reports: Vision loss, Corrective lenses (new glasses getting used to them) - Ears, Nose & Throat Ears, Nose & Throat: reports: Dental decay (reports still has multiple appointments yet), Dry mouth (problematic as afar a symptom) - Cardiovascular Cardiovascular: reports: Edema (LE not new), Decr. exercise tolerance - Respiratory Respiratory: reports: SOB with exertion, Other (reports difficulty with phelgm at end of day "rattles" difficulty clearing; no choking) - Gastrointestinal Gastrointestinal: reports: Abdominal pain, Good appetite, Other (has internal and external hemmorhoids). denies: Constipation, Diarrhea, Reflux/heartburn - Genitourinary Genitourinary: reports: Dysuria (recent "UTI" reports noted increased burning sensation; was treated now resolved), Other (has catheter for neurogenic bladder) - Musculoskeletal Musculoskeletal: reports: Limited range of motion (LE), Muscle weakness, Transfer issues (staff use leyda lift to motorized wheelchair. Independent in maneuvering currently) - Integumentary Integumentary: reports: Dryness, Other (Stage III right ischium terminal superintendent pressure ulcer; recently without improvement; trying new product daily called) - Neurological Neurological: reports: General weakness, Memory problems (patient with insight into STM issues; uses notebook to track events of day; poor recall when asked historical questions related to symptoms etc,. but able to engage in conversations easily) - Psychiatric Psychiatric: reports: Anxiety (gets significant anxiety at night and around pain issues). denies: Depression - Hematologic/Lymphatic Hematologic/Lymphatic: reports: Anemia, Recurrent infections (UTIs) - All Other Systems All Other Systems: reports: Reviewed and negative Physical Exam - Vital Signs Temperature: 97.2 C Pulse Rate: 50 Respiratory Rate: 18 O2 Saturation: 90 (ra @ rest) Blood Pressure: 92/52 - Physical Exam General Appearance: positive: No acute distress Eyes Bilateral: positive: Normal inspection ENT: positive: Dry mucous membranes (baseline; no s/s candidiasis but lips peeling) Neck: positive: No JVD, Trachea midline Cardiovascular: positive: Regular rate & rhythm Respiratory: positive: Breath sounds nml Abdomen: positive: Soft, Nml bowel sounds, Tenderness, Other (palpate baclofen pum LLQ) Skin: positive: Pallor, Dryness, Pressure wound (depth 2.5 cm measured by RN; area surrounding macerated about 1 cm with rolled borders;) Extremities: positive: Pedal edema (dependent edema pooled in ankles), Other (unable to move LE without assist; hands with poor fine motor movement; patient with UE strength trying to maintain with daily exercise/light wts) Neurologic/Psychiatric: positive: Mood/affect nml, Disoriented to time, Weakness Palliative Care - POLST Patient has POLST: Yes Pain: Pain unchanged, Location (identifies in midabdominal area radiating around to back; c/o pain radiaiting down legs into feet ; has baclofen pump; fentanyl 25 mcg patch; and hydrocodone for BTP-reports effective if escalates but only brief relief) Tiredness/Fatigue: Severe (7-10) (feels this is worsening; if waits or doesn't rest when aware; can have 2-3 days of "payback") Drowsiness/Sedation: Mild (1-3) Nausea: None Depression: None Anxiety: Moderate (4-6) Dyspnea: Moderate (4-6) (with activity) Anorexia: None Constipation: Yes, Opoid induced, Managed Feelings of wellbeing/Perceived Quality of Life: Fair, Acceptable, No change Performance Status: Patient dependent for transfers via leyda, up for breakfast and does "gym" activities; then in bed for rest/lunch; has not been going to dining room for lunch or dinner; but intention is to be up for afternoon activities. Dependent for bathing. - Palliative Care Discussion: Revisted patient's conversation last time about wanting to make sister MELODY, has changed her mind. She feels confident with her son doing it with support from her sister. Wanting to have a "trust" so she has some access to some funds at the facility, is selling the van and won't be making payments so feels this might be possible, it is a QOL for her to have some independence or money to have control on. Patient feels as far as her MS she has deteriorated to a point she knows she will not be independent again, and this is where she has landed. Trying to be grateful and keep her sense of humor about it. Does not feel she is depressed but does get anxious at times, is starting to build some trust and get to know some of the staff. She would like to have more energy, feels that limits her quality of life. Results - Lab Results Lab results reviewed: Yes Lab and Imaging Results: 06/11 last hgb 10.3; has had no iron studies; colonscopy was negative on oral iron Impression and Recommendations - Palliative Care Impression: This is a 68-year-old woman with MS, latent stage, presenting with her most troubling symptom as fatigue. This is multifactorial in origin, including disease related, deconditioning, chronic pain, side effects of medication, and concern for anemia. Patient's goals remain focusing on what little independence she has, quality of life issues, and "settling in" her new setting. Palliative care team to provide support for ongoing symptom management, psychosocial support, as well as anticipatory guidance. Recommendations/Counseling Done: 1. Anemia unspecified. We will go ahead and draw some labs, follow-up make sure there is nothing else to do this further further interventions. This was satisfactory to the patient is this is still quite problematic and of concern for her. Patient is currently on iron, colonoscopy was negative, most recent labs so were in May. 2. MS. Patient feels physically her MS is at a plateau, does not expect further improvement, but feels like she is not going to decline. She is still doing her upper extremity program, trying to pace herself, though finding herself spending more time in bed. Patient does admit to increased cognitive decline, is trying some strategies to manage this, very poor recall. Acute on chronic pain. Patient satisfied with her current regimen, she is on a baclofen pump and fentanyl patch, only using hydrocodone intermittently. Does not feel like she needs any adjustments. 4. Constipation. Patient currently on MiraLAX and bisacodyl, only intermittently needing suppositories. Feels this is currently managed, confirmed with nursing. 5. Depression. Patient denies persistent symptoms of depression, attributes more of her distress to anxiety. She is seeing the medical palliative care social work on a regular basis, will follow up and see current status of volunteer referral. 6. Weight loss. This can be attributed to changes in her dental status, carmen toussaint reports she is not anorexic, but having trouble with different foods because of her ability to chew. Referral to dietitian made. 7. Stage III right ischial decub. Patient currently with poor forward movement, in fact may have been deteriorating regarding this. Wound does appear with maceration, trying new product. Follow-up with the MAC, would recommend visit for debridement, and further recommendations. Patient in agreement with this plan. 8. Advanced care planning. Patient does have D POA which is her son Adan, after discussion wants to keep it this way. Patient does have a JULIÁN ST in place with DNA R and selective treatments, patient continues to weigh fairly carefully decisions moving forward regarding healthcare status. We will continue to explore as decisions come about, patient does not want to prolong suffering, but is currently satisfied with her current quality of life. CC Careage Time Spent: 60 minutes was given 50% of this done and counseling and anticipatory guidance, coordination of care with clinical staff regarding wounds and referrals.
== END 2018-07-19 11:31 | disposition home or self-care (01) ==
LOC: PC 11:30
PROVIDERS: ATTEND Nurse Practitioner Adult Health
DX: Z51.5 Encounter for palliative care (principal); D64.9 Anemia, unspecified; G35 Multiple sclerosis; G89.29 Other chronic pain; K59.03 Drug induced constipation; T40.2X5D Adverse effect of other opioids, subsequent encounter; F32.9 Major depressive disorder, single episode, unspecified; F41.9 Anxiety disorder, unspecified; K59.2 Neurogenic bowel, not elsewhere classified; R63.4 Abnormal weight loss; K08.409 Partial loss of teeth, unspecified cause, unspecified class; L89.313 Pressure ulcer of right buttock, stage 3; N31.9 Neuromuscular dysfunction of bladder, unspecified; Z96.0 Presence of urogenital implants; Z87.440 Personal history of urinary (tract) infections; Z79.891 Long term (current) use of opiate analgesic; Z99.3 Dependence on wheelchair
CPT/HCPCS: 99310

== ENCOUNTER 2018-07-22 15:20 | Outpatient (CLI) | payer MEDICARE, MEDICAID ==
[2018-07-22 16:01] LABS: BASOPHILS # (AUTO) 0.1 10^3/uL (0.0-0.1); BASOPHILS % (AUTO) 0.7 %; EOSINOPHILS # (AUTO) 0.3 10^3/uL (0.0-0.7); HGB - HEMOGLOBIN 10.6 g/dL (12.0-16.0); LYMPHOCYTES % (AUTO) 18.3 %; MEAN CORPUSCULAR HEMOGLOBIN 26.7 pg (27.0-31.0); MEAN CORPUSCULAR HGB CONC 30.6 g/dL (32.0-36.0); MEAN CORPUSCULAR VOLUME 87.3 fL (81.0-99.0); MEAN PLATELET VOLUME 8.1 fL (7.9-10.8); MONOCYTES # (AUTO) 0.5 10^3/uL (0.0-1.0); MONOCYTES % (AUTO) 4.9 %; NEUTROPHILS % (AUTO) 73.1 %; PLT - PLATELET COUNT 402 10^3/uL (130-450); RED BLOOD COUNT 3.99 10^6/uL (4.20-5.40); RED CELL DISTRIBUTION WIDTH 16.7 % (12.0-15.0)
[2018-07-22 16:48] LABS: % IRON SATURATION 5 % (20-50); IRON 16 ug/dL (28-170); TOTAL IRON BINDING CAPACITY 328 ug/dL (250-450); TRANSFERRIN 234 mg/dL (192-382)
== END 2018-07-22 23:59 | disposition home or self-care (01) ==
LOC: LAB.R 15:20
DX: D64.9 Anemia, unspecified (principal)
CPT/HCPCS: 82728; 83540; 84466; 85025

== ENCOUNTER 2018-08-10 08:00 | Outpatient (CLI) | payer MEDICARE, MEDICAID | END 2018-08-10 23:59 | disposition home or self-care (01) | LOC: LAB.R 08:00 | DX: J11.1 Influenza due to unidentified influenza virus with other respiratory manifestations (principal) | CPT/HCPCS: 87275; 87276 ==

== ENCOUNTER 2018-11-09 16:45 | Outpatient (CLI) | payer MEDICARE, MEDICAID ==
--- NOTE | 2018-11-09 18:09 | CONSULTATION NOTE ---
Palliative Care Follow Up - Referral Referring Provider: Dr. Vega Liz Time of Visit: 8726-1131 Referral setting: Assisted Facility Referral Reason: MS/Stage III Wound ischum - Information Sources Records reviewed: Previous records reviewed History/Review of Systems obtained from: Patient Exam limitations: Clinical condition (patient with STM issues) - History of Present Illness Update Brief HPI Update: This is a 68-year-old woman with multiple sclerosis, defined as late stage, with no neurogenic bowel and neurogenic bladder. She has had long-standing chronic pain with spasticity and has a baclofen pump. She is recently started on oral baclofen as well. Patient does perceive as far as her status, that she has somewhat plateaued., She had an exacerbation on arrival to the alf which was coming on about a year now. She feels like she is settling in, her son has moved off the villages, and her sister is moving soon to [place]. When asked if she would like to relocate closer to family, she feels this would be detrimental to her health, and is quite content "as one could be living in a alf". She has not had any acute infections, hospitalizations, nor changes in her health. She presents with moderate symptom burden. Her most significant and bothersome symptom for her is actually her fatigue. This fluctuates as far as severity. It is often exacerbated with prolonged increased activity as with appointments out of the facility. She denies its associated with any dizziness, shortness of breath, insomnia, or dehydration. She has had a work-up for her anemia, and including colonoscopy. Her most recent H&H on 07/22 was 10.6 and 34.5. Awaiting recent labs by PCP. She reports her pain mostly is located around her lower abdomen radiating to her lower back and down her legs. She does feel that extra oral baclofen has helped decrease her spasms And frequency, and probably about 50% in intensity. She does feel her current discomfort is managed well, and often just needs acetaminophen for breakthrough pain. This is usually when she has been sitting up for longer periods of time. She does tend to lean to the right and her discomfort is through her shoulder area. She denies depression, very little anxiety, reports her bowel program continues to be somewhat unpr edictable but acceptable at this point in time. She does report sleeping well, and often sleeps "deeply", with some difficulty in awakening. She reports her appetite is better and is satisfied overall with her current quality of life. Social History - Living Situation Living arrangement: alf Support System: Patient is , her had been her primary caregiver, they had tried with family to piece together a care plan over the last couple years, patient continues as the D POA, patient does have short-term memory issues, but does present with decision-making capacity. Medications/Allergies - Medications Home Medications: Ambulatory Orders Medication Instructions Recorded Confirmed Acetaminophen [Tylenol Extra 500 - 1,000 mg PO Q6HR PRN 01/28/18 11/09/18 Strength] Aspirin [Adult Aspirin] 81 mg PO DAILY 01/28/18 11/09/18 Bisacodyl 5 mg PO DAILY 01/28/18 11/09/18 Bisacodyl Supp [Dulcolax Supp] 1 supp GA DAILY PRN 01/28/18 11/09/18 Cholecalciferol (Vitamin D3) 2,000 unit PO DAILY 01/28/18 11/09/18 [Vitamin D] Diclofenac Sodium [Voltaren] 2 - 4 gm TOP TID PRN MDD 32gm 01/28/18 11/09/18 Polyethylene Glycol 3350 [Miralax] 17 gm PO DAILY 01/28/18 11/09/18 Baclofen 5 tab PO TID 08/04/18 11/09/18 Guaifenesin/Dextromethorphan 10 ml PO Q4HR PRN 08/04/18 11/09/18 [Tussin Dm Cough Syrup] Calcium Carbonate [Tums (Calcium 1,000 mg PO Q4HR PRN 11/09/18 11/09/18 Carbonate 500mg)] DULoxetine [Cymbalta] 60 mg PO DAILY 11/09/18 11/09/18 Ferrous Gluconate [Iron] 240 mg PO DAILY 11/09/18 11/09/18 Gabapentin 100 mg PO .NOON 11/09/18 11/09/18 Gabapentin [Neurontin] 300 mg PO ACHS 11/09/18 11/09/18 HYDROcod/ACETAM 5/325 [[place] 5/325] 1 - 2 tab PO Q4HR PRN 11/09/18 11/09/18 Hydrochlorothiazide 12.5 mg PO DAILY 11/09/18 11/09/18 Lovastatin 20 mg PO DAILY 11/09/18 11/09/18 Naloxone HCl 0.1 ml SLY PRN PRN 11/09/18 11/09/18 Oxybutynin [Ditropan] 5 mg PO DAILY 11/09/18 11/09/18 diazePAM [Diazepam] 2.5 mg PO DAILY PRN 11/09/18 11/09/18 fentaNYL [Fentanyl 75mcg patch] 75 mcg TOP .Q3DAYS 11/09/18 11/09/18 - Allergies Allergies/Adverse Reactions: Allergies Allergy/AdvReac Type Severity Reaction Status Date / Time nystatin Allergy Unknown Verified 09/17/18 10:47 Penicillins Allergy Unknown Verified 09/17/18 10:47 Review of Systems - Constitutional Constitutional: reports: Fatigue, Weight stable (121). denies: Fever, Chills - Ears, Nose & Throat Ears, Nose & Throat: reports: Dry mouth - Cardiovascular Cardiovascular: reports: Decr. exercise tolerance - Respiratory Respiratory: denies: SOB at rest - Gastrointestinal Gastrointestinal: reports: Abdominal pain, Good appetite, Other (inc. of stool) - Genitourinary Genitourinary: reports: Other (christensen catheter for urinary retention) - Musculoskeletal Musculoskeletal: reports: Muscle pain, Back pain, Muscle aches, Stiffness, Limited range of motion, Muscle weakness, Transfer issues (chayito lift to power chair) - Integumentary Integumentary: reports: Other (stage III decub ishium; longstanding over the years) - Neurological Neurological: reports: General weakness, Memory problems (admits to STM issue; denies confusion) - Psychiatric Psychiatric: denies: Depression, Anxiety - Hematologic/Lymphatic Hematologic/Lymphatic: reports: Anemia - All Other Systems All Other Systems: reports: Reviewed and negative Physical Exam - Vital Signs Temperature: 97.3 C Pulse Rate: 74 Respiratory Rate: 18 O2 Saturation: 93 (ra @ rest) Blood Pressure: 98/62 - Physical Exam General Appearance: positive: Mild distress (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 negative: Distended Skin: positive: Pallor, Pressure wound (0.3 x o.5 cm opening 1.8 cm deep; 2.0 cm at 4 o'clock; edges rolled with eschar needing mechanical debridement) Extremities: positive: Pedal edema (trace pedal edema) Neurologic/Psychiatric: positive: Oriented x3, Mood/affect nml, Flat affect Palliative Care - POLST Patient has POLST: Yes POLST Status: DNR, Selective Treatment Pain: Pain improved, Location (Patient on baclofen pump, has nurse come to the facility. Recently started baclofen orally with decrease in spasms. Takes acetaminophen for breakthrough pain and has hydrocodone/acetaminophen if needed as well. She is also maintained on fentanyl 75 mcg patch.) Tiredness/Fatigue: Severe (7-10) Drowsiness/Sedation: Mild (1-3) Nausea: None Depression: None Anxiety: Mild (1-3) Anorexia: None Sleep: Sleeps well Constipation: Yes, Opoid induced, Managed Feelings of wellbeing/Perceived Quality of Life: Good, Acceptable, Improved Performance Status: Patient is dependent on staff for most ADLs, she is able to self feed but needs set up. She is a [place] transfer, she does get up several times a day, usually at least for 1 meal. She reports she gets showers twice a week. - Palliative Care Discussion: Patient perceives her disease status is currently stable, she has not had any "hiccups" for a while. She has settling in, trying to make this space her own, has experienced a lot of loss and grief over this last 6 to 12 months. She says she andrzej with her humor, she does have an amazing amount of resilience, she is quite social and does engage staff and has a visiting volunteer at [employer], who stopped in while I was present. Does understand she will have continued decline in the future, but is fairly pragmatic, and sees herself as being able to take it in stride. She feels her current quality of life is acceptable, she does have a POLST, DNA R/selective treatments and will weigh her treatment decisions carefully in the context of her quality of life going forward as well. Impression and Recommendations - Palliative Care Impression: This is a 68-year-old woman with multiple sclerosis, latent stage, with moderate symptom burden. Patient goals remain focusing on maintaining the independence she can, quality of life issues, has current the feeling more settled in her new setting. Patient has reached somewhat of a plateau, palliative care will be available for any deterioration or exacerbation of symptoms. Palliative care transition social worker will continue to provide support for psychosocial issues and adjustment illness. Recommendations/Counseling Done: 1. 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 Follow-up with June QURESHI, she can do mechanical debridement. They did need a new order for treatment, this is communicated to Dr. Liz. The one thing that needs to happen for sure is that she goes with a Chayito sling. Did show her photographs, it has been improving it is just currently stalled. 2. Anemia of chronic disease. Patient has pending labs, has had colonoscopy with negative findings fatigue remains to be problematic for her, though multifactorial in origin. 3. Multiple sclerosis. Patient does feel she is currently at a plateau, has not noticed any further deterioration. She is still participating in her maintenance program, though is finding herself spending again more time in bed. 4. Acute on chronic pain. Patient pleased with her increased comfort with decreased frequency of spasms with the oral baclofen. She is on a baclofen pump working with neurology, fentanyl patch for baseline, and uses mostly acetaminophen for generalized upper extremity discomfort. Does not feel like she needs any adjustments. 5. Constipation patient currently on MiraLAX and bisacodyl, feels this is currently managed and remains somewhat unpredictable. Appears less perseverative, and without concerns today regarding her bowels. 6. Depression. Patient denies persistent symptoms of depression, feels like she is settling in. Is appreciative and grateful for her current quality of life, continues to find things that bring her bryanna. She is hoping to get a tomato plant for her window, she used to really like gardening. She has seen the medical palliative care transition social worker for ongoing support. She does have a volunteer through [employer]. 7. Advanced care planning. Patient does have D POA which is her son Adan, has a POLST in place with the OSIEL and selective treatments. She is quite thoughtful and pragmatic and wane benefits and burdens of medical interventions and appointments. We will continue to anticipate decline in the future, but will wait till further deterioration. Palliative care available for further consult if needed. CC Careage Time Spent: 45 minutes with rate of 50% of this done in counseling and review of current quality of life issues, anticipatory guidance, and goals of care. Coordination of care with wound care clinic, clinical staff and PCP
== END 2018-11-09 16:46 | disposition home or self-care (01) ==
LOC: PC 16:45
PROVIDERS: ATTEND Nurse Practitioner Adult Health
DX: Z51.5 Encounter for palliative care (principal); L89.313 Pressure ulcer of right buttock, stage 3; D63.8 Anemia in other chronic diseases classified elsewhere; K59.03 Drug induced constipation; T40.2X5D Adverse effect of other opioids, subsequent encounter; G35 Multiple sclerosis; G89.29 Other chronic pain; F32.9 Major depressive disorder, single episode, unspecified; Z79.899 Other long term (current) drug therapy; Z66 Do not resuscitate
CPT/HCPCS: 99310

== ENCOUNTER 2018-11-12 16:30 | Outpatient (CLI) | payer MEDICARE, MEDICAID ==
[2018-11-12 17:53] LABS: BASOPHILS # (AUTO) 0.1 10^3/uL (0.0-0.1); BASOPHILS % (AUTO) 0.6 %; EOSINOPHILS # (AUTO) 0.4 10^3/uL (0.0-0.7); EOSINOPHILS % (AUTO) 3.7 %; HGB - HEMOGLOBIN 11.8 g/dL (12.0-16.0); LYMPHOCYTES # (AUTO) 3.3 10^3/uL (1.5-3.5); LYMPHOCYTES % (AUTO) 28.2 %; MEAN CORPUSCULAR HEMOGLOBIN 26.5 pg (27.0-31.0); MEAN CORPUSCULAR HGB CONC 31.1 g/dL (32.0-36.0); MEAN PLATELET VOLUME 8.9 fL (7.9-10.8); MONOCYTES % (AUTO) 8.2 %; NEUTROPHILS % (AUTO) 59.3 %; PLT - PLATELET COUNT 352 10^3/uL (130-450); RED BLOOD COUNT 4.46 10^6/uL (4.20-5.40); RED CELL DISTRIBUTION WIDTH 17.1 % (12.0-15.0); WHITE BLOOD COUNT 11.7 x10^3/uL (4.8-10.8)
[2018-11-12 18:03] LABS: ALBUMIN 3.4 g/dL (3.2-5.5); ALBUMIN/GLOBULIN RATIO 0.7 (1.0-2.2); BILIRUBIN,TOTAL 0.2 mg/dL (0.2-1.0); CALCIUM 9.3 mg/dL (8.5-10.3); CREATININE 0.4 mg/dL (0.4-1.0)
== END 2018-11-12 23:59 | disposition home or self-care (01) ==
LOC: LAB.R 16:30
PROVIDERS: ATTEND Family Medicine
DX: R79.89 Other specified abnormal findings of blood chemistry (principal); G35 Multiple sclerosis; D50.8 Other iron deficiency anemias
CPT/HCPCS: 80053; 82728; 84134; 85025

== ENCOUNTER 2018-12-07 08:00 | Outpatient (CLI) | payer MEDICARE, MEDICAID ==
[2018-12-07 14:31] LABS: BASOPHILS # (AUTO) 0.1 10^3/uL (0.0-0.1); BASOPHILS % (AUTO) 1.2 %; EOSINOPHILS # (AUTO) 0.4 10^3/uL (0.0-0.7); EOSINOPHILS % (AUTO) 3.7 %; HGB - HEMOGLOBIN 11.5 g/dL (12.0-16.0); LYMPHOCYTES # (AUTO) 2.9 10^3/uL (1.5-3.5); LYMPHOCYTES % (AUTO) 28.7 %; MEAN CORPUSCULAR HEMOGLOBIN 27.5 pg (27.0-31.0); MEAN CORPUSCULAR HGB CONC 32.2 g/dL (32.0-36.0); MEAN CORPUSCULAR VOLUME 85.4 fL (81.0-99.0); MEAN PLATELET VOLUME 8.8 fL (7.9-10.8); MONOCYTES # (AUTO) 0.8 10^3/uL (0.0-1.0); MONOCYTES % (AUTO) 7.8 %; NEUTROPHILS # (AUTO) 5.9 10^3/uL (1.5-6.6); NEUTROPHILS % (AUTO) 58.6 %; PLT - PLATELET COUNT 333 10^3/uL (130-450); RED CELL DISTRIBUTION WIDTH 17.4 % (12.0-15.0)
[2018-12-07 14:33] LABS: BILIRUBIN,URINE NEGATIVE (NEGATIVE); GLUCOSE, URINE (UA) NEGATIVE (NEGATIVE); KETONES,URINE (UA) NEGATIVE (NEGATIVE); LEUKOCYTE ESTERASE, URINE LARGE (NEGATIVE); NITRITE,URINE POSITIVE (NEGATIVE); OCCULT BLOOD,URINE SMALL (NEGATIVE); PH,URINE 7.5 PH (5.0-7.5); PROTEIN,URINE NEGATIVE (NEGATIVE); UROBILINOGEN,URINE 0.2 (NORMAL) E.U./dL (NORMAL)
[2018-12-07 14:35] LABS: CLARITY,URINE CLEAR (CLEAR)
[2018-12-07 14:47] LABS: BACTERIA,URINE Few /HPF (None Seen); RBC,URINE 0-5 /HPF (0-5); SQUAMOUS EPITHELIAL CELL,UR FEW Squamous (<= Few)
== END 2018-12-07 23:59 | disposition home or self-care (01) ==
LOC: LAB.R 08:00
PROVIDERS: ATTEND Family Medicine
DX: R68.83 Chills (without fever) (principal)
CPT/HCPCS: 36415; 80048; 81001; 85025; 87086; 87181

== ENCOUNTER 2018-12-17 08:00 | Outpatient (CLI) | payer MEDICARE, MEDICAID ==
[2018-12-17 19:42] LABS: BASOPHILS # (AUTO) 0.1 10^3/uL (0.0-0.1); BASOPHILS % (AUTO) 0.5 %; EOSINOPHILS # (AUTO) 0.4 10^3/uL (0.0-0.7); EOSINOPHILS % (AUTO) 3.2 %; HGB - HEMOGLOBIN 10.9 g/dL (12.0-16.0); LYMPHOCYTES # (AUTO) 3.1 10^3/uL (1.5-3.5); MEAN CORPUSCULAR HEMOGLOBIN 27.3 pg (27.0-31.0); MEAN CORPUSCULAR HGB CONC 31.7 g/dL (32.0-36.0); MEAN CORPUSCULAR VOLUME 86.1 fL (81.0-99.0); MONOCYTES % (AUTO) 8.7 %; NEUTROPHILS # (AUTO) 6.9 10^3/uL (1.5-6.6); NEUTROPHILS % (AUTO) 60.6 %; PLT - PLATELET COUNT 368 10^3/uL (130-450); RED CELL DISTRIBUTION WIDTH 16.7 % (12.0-15.0); WHITE BLOOD COUNT 11.3 x10^3/uL (4.8-10.8)
== END 2018-12-17 23:59 | disposition home or self-care (01) ==
LOC: LAB.R 08:00
DX: D72.829 Elevated white blood cell count, unspecified (principal)
CPT/HCPCS: 85025

== ENCOUNTER 2019-04-21 02:40 | Outpatient (CLI) | payer MEDICARE, MEDICAID ==
[2019-04-21 04:31] LABS: ALBUMIN 3.6 g/dL (3.2-5.5); ALBUMIN/GLOBULIN RATIO 0.9 (1.0-2.2); BILIRUBIN,TOTAL 0.5 mg/dL (0.2-1.0); CALCIUM 9.2 mg/dL (8.5-10.3); CREATININE 0.4 mg/dL (0.4-1.0); TOTAL PROTEIN 7.6 g/dL (6.7-8.2)
== END 2019-04-21 23:59 | disposition home or self-care (01) ==
LOC: LAB.R 02:40
DX: L89.43 Pressure ulcer of contiguous site of back, buttock and hip, stage 3 (principal)
CPT/HCPCS: 80053; 82728; 83540; 84466

== ENCOUNTER 2019-06-07 22:10 | Outpatient (CLI) | payer MEDICARE, MEDICAID ==
[2019-06-07 23:16] LABS: BILIRUBIN,URINE NEGATIVE (NEGATIVE); GLUCOSE, URINE (UA) NEGATIVE (NEGATIVE); KETONES,URINE (UA) NEGATIVE (NEGATIVE); LEUKOCYTE ESTERASE, URINE SMALL (NEGATIVE); NITRITE,URINE POSITIVE (NEGATIVE); OCCULT BLOOD,URINE SMALL (NEGATIVE); PROTEIN,URINE NEGATIVE (NEGATIVE); UROBILINOGEN,URINE 0.2 (NORMAL) E.U./dL (NORMAL)
[2019-06-07 23:18] LABS: CLARITY,URINE HAZY (CLEAR)
[2019-06-07 23:22] LABS: BACTERIA,URINE Many /HPF (None Seen); RBC,URINE 0-5 /HPF (0-5); SQUAMOUS EPITHELIAL CELL,UR FEW Squamous (<= Few)
== END 2019-06-07 23:59 | disposition home or self-care (01) ==
LOC: LAB.R 22:10
DX: N39.0 Urinary tract infection, site not specified (principal)
CPT/HCPCS: 81001; 81003; 87077; 87086; 87181

== ENCOUNTER 2019-06-13 16:30 | Outpatient (CLI) | payer MEDICARE, MEDICAID ==
[2019-06-14 17:42] LABS: BASOPHILS # (AUTO) 0.1 10^3/uL (0.0-0.1); BASOPHILS % (AUTO) 0.7 %; EOSINOPHILS # (AUTO) 0.3 10^3/uL (0.0-0.7); EOSINOPHILS % (AUTO) 2.3 %; HGB - HEMOGLOBIN 11.6 g/dL (12.0-16.0); LYMPHOCYTES # (AUTO) 2.6 10^3/uL (1.5-3.5); LYMPHOCYTES % (AUTO) 21.5 %; MEAN CORPUSCULAR HEMOGLOBIN 29.4 pg (27.0-31.0); MEAN CORPUSCULAR HGB CONC 30.6 g/dL (32.0-36.0); MEAN CORPUSCULAR VOLUME 95.9 fL (81.0-99.0); MEAN PLATELET VOLUME 9.8 fL (7.9-10.8); MONOCYTES # (AUTO) 0.9 10^3/uL (0.0-1.0); MONOCYTES % (AUTO) 7.7 %; NEUTROPHILS # (AUTO) 8.1 10^3/uL (1.5-6.6); NEUTROPHILS % (AUTO) 67.3 %; PLT - PLATELET COUNT 397 10^3/uL (130-450); RED BLOOD COUNT 3.95 10^6/uL (4.20-5.40); RED CELL DISTRIBUTION WIDTH 13.3 % (12.0-15.0)
[2019-06-14 17:46] LABS: CALCIUM 8.7 mg/dL (8.5-10.3); CREATININE 0.4 mg/dL (0.4-1.0)
== END 2019-06-13 23:59 | disposition home or self-care (01) ==
LOC: LAB.R 16:30
PROVIDERS: ATTEND Family Medicine
DX: R79.89 Other specified abnormal findings of blood chemistry (principal); R68.89 Other general symptoms and signs
CPT/HCPCS: 80048; 85025

== ENCOUNTER 2019-06-21 11:15 | Outpatient (CLI) | payer MEDICARE, MEDICAID ==
[2019-06-21 13:51] LABS: BILIRUBIN,URINE NEGATIVE (NEGATIVE); GLUCOSE, URINE (UA) NEGATIVE (NEGATIVE); KETONES,URINE (UA) NEGATIVE (NEGATIVE); LEUKOCYTE ESTERASE, URINE TRACE (NEGATIVE); NITRITE,URINE NEGATIVE (NEGATIVE); OCCULT BLOOD,URINE LARGE (NEGATIVE); PH,URINE 6.5 PH (5.0-7.5); PROTEIN,URINE NEGATIVE (NEGATIVE); UROBILINOGEN,URINE 0.2 (NORMAL) E.U./dL (NORMAL)
[2019-06-21 14:12] LABS: CLARITY,URINE HAZY (CLEAR)
[2019-06-21 14:14] LABS: RBC,URINE TNTC /HPF (0-5); SQUAMOUS EPITHELIAL CELL,UR MOD Squamous (<= Few)
[2019-06-21 14:15] LABS: BACTERIA,URINE Few /HPF (None Seen); EPITHELIAL CELLS,UR RARE Renal Tubular /HPF (<= Few)
== END 2019-06-21 23:59 | disposition home or self-care (01) ==
LOC: LAB.R 11:15
PROVIDERS: ATTEND Family Medicine
DX: R30.0 Dysuria (principal)
CPT/HCPCS: 81001; 81003

== ENCOUNTER 2019-09-12 16:20 | Outpatient (CLI) | payer MEDICARE, MEDICAID ==
[2019-09-12 17:00] LABS: BASOPHILS # (AUTO) 0.1 10^3/uL (0.0-0.1); BASOPHILS % (AUTO) 0.5 %; EOSINOPHILS # (AUTO) 0.4 10^3/uL (0.0-0.7); EOSINOPHILS % (AUTO) 2.7 %; HGB - HEMOGLOBIN 12.3 g/dL (12.0-16.0); LYMPHOCYTES # (AUTO) 3.2 10^3/uL (1.5-3.5); LYMPHOCYTES % (AUTO) 20.6 %; MEAN CORPUSCULAR HEMOGLOBIN 28.1 pg (27.0-31.0); MEAN CORPUSCULAR HGB CONC 30.1 g/dL (32.0-36.0); MEAN CORPUSCULAR VOLUME 93.6 fL (81.0-99.0); MEAN PLATELET VOLUME 9.9 fL (7.9-10.8); MONOCYTES # (AUTO) 1.1 10^3/uL (0.0-1.0); MONOCYTES % (AUTO) 6.9 %; NEUTROPHILS # (AUTO) 10.7 10^3/uL (1.5-6.6); NEUTROPHILS % (AUTO) 68.7 %; PLT - PLATELET COUNT 417 10^3/uL (130-450); RED BLOOD COUNT 4.37 10^6/uL (4.20-5.40); RED CELL DISTRIBUTION WIDTH 13.5 % (12.0-15.0); WHITE BLOOD COUNT 15.5 x10^3/uL (4.8-10.8)
== END 2019-09-12 23:59 | disposition home or self-care (01) ==
LOC: LAB.R 16:20
DX: D64.9 Anemia, unspecified (principal)
CPT/HCPCS: 82728; 85025

== ENCOUNTER 2019-09-15 08:00 | Outpatient (CLI) | payer MEDICARE, MEDICAID ==
[2019-09-15 22:55] LABS: BILIRUBIN,URINE NEGATIVE (NEGATIVE); CLARITY,URINE CLEAR (CLEAR); GLUCOSE, URINE (UA) NEGATIVE (NEGATIVE); KETONES,URINE (UA) NEGATIVE (NEGATIVE); LEUKOCYTE ESTERASE, URINE MODERATE (NEGATIVE); NITRITE,URINE POSITIVE (NEGATIVE); OCCULT BLOOD,URINE MODERATE (NEGATIVE); PROTEIN,URINE NEGATIVE (NEGATIVE); UROBILINOGEN,URINE 0.2 (NORMAL) E.U./dL (NORMAL)
[2019-09-15 23:03] LABS: BACTERIA,URINE Few /HPF (None Seen); SQUAMOUS EPITHELIAL CELL,UR NONE SEEN (<= Few)
== END 2019-09-15 23:59 | disposition home or self-care (01) ==
LOC: LAB.R 08:00
DX: R39.0 Extravasation of urine (principal)
CPT/HCPCS: 81001; 81003; 87086; 87181

== ENCOUNTER 2019-09-15 14:00 | Outpatient (CLI) | payer MEDICARE, MEDICAID ==
[2019-09-15 15:30] LABS: BASOPHILS # (AUTO) 0.1 10^3/uL (0.0-0.1); BASOPHILS % (AUTO) 0.7 %; EOSINOPHILS # (AUTO) 0.5 10^3/uL (0.0-0.7); EOSINOPHILS % (AUTO) 2.9 %; HGB - HEMOGLOBIN 12.5 g/dL (12.0-16.0); LYMPHOCYTES # (AUTO) 2.8 10^3/uL (1.5-3.5); LYMPHOCYTES % (AUTO) 17.2 %; MEAN CORPUSCULAR HEMOGLOBIN 29.2 pg (27.0-31.0); MEAN CORPUSCULAR VOLUME 94.2 fL (81.0-99.0); MEAN PLATELET VOLUME 10.1 fL (7.9-10.8); MONOCYTES # (AUTO) 1.2 10^3/uL (0.0-1.0); MONOCYTES % (AUTO) 7.6 %; NEUTROPHILS # (AUTO) 11.6 10^3/uL (1.5-6.6); PLT - PLATELET COUNT 461 10^3/uL (130-450); RED BLOOD COUNT 4.28 10^6/uL (4.20-5.40); RED CELL DISTRIBUTION WIDTH 13.6 % (12.0-15.0); WHITE BLOOD COUNT 16.3 x10^3/uL (4.8-10.8)
[2019-09-15 15:31] LABS: ALBUMIN 3.6 g/dL (3.2-5.5); ALBUMIN/GLOBULIN RATIO 0.7 (1.0-2.2); BILIRUBIN,TOTAL 0.4 mg/dL (0.2-1.0); CALCIUM 9.3 mg/dL (8.5-10.3); CREATININE 0.4 mg/dL (0.4-1.0); TOTAL PROTEIN 8.5 g/dL (6.7-8.2)
== END 2019-09-15 23:59 | disposition home or self-care (01) ==
LOC: LAB.R 14:00
PROVIDERS: ATTEND Family Medicine
DX: D64.9 Anemia, unspecified (principal); L89.43 Pressure ulcer of contiguous site of back, buttock and hip, stage 3; R68.89 Other general symptoms and signs
CPT/HCPCS: 80053; 85025

== ENCOUNTER 2019-09-15 15:13 | Emergency (ER) | payer MEDICARE, MEDICAID ==
[2019-09-15 15:33] VITALS: BP 125/78
--- NOTE | 2019-09-15 16:54 | XRAY Report ---
Reason: cough Procedure Date: 09/15/2019 Accession Number: [id number] / [id number] Procedure: XR - Chest 2 View X-Ray CPT Code: 52644 Final Report FULL RESULT: EXAM: CHEST RADIOGRAPHY EXAM DATE: 09/15/2019 04:41 PM. CLINICAL HISTORY: Cough. COMPARISON: None. TECHNIQUE: 2 views. FINDINGS: Lungs/Pleura: No focal opacities evident. No pleural effusion. No pneumothorax. Normal volumes. Mediastinum: Heart and mediastinal contours are unremarkable. Other: Intrathecal lead is in place. IMPRESSION: No acute intrathoracic plain film abnormality. RADIA
[2019-09-15 18:49] LABS: BILIRUBIN,URINE NEGATIVE (NEGATIVE); GLUCOSE, URINE (UA) NEGATIVE (NEGATIVE); KETONES,URINE (UA) NEGATIVE (NEGATIVE); LEUKOCYTE ESTERASE, URINE LARGE (NEGATIVE); NITRITE,URINE POSITIVE (NEGATIVE); OCCULT BLOOD,URINE SMALL (NEGATIVE); PROTEIN,URINE NEGATIVE (NEGATIVE); UROBILINOGEN,URINE 0.2 (NORMAL) E.U./dL (NORMAL)
[2019-09-15 18:59] LABS: CLARITY,URINE SL. CLOUDY (CLEAR)
[2019-09-15 19:00] LABS: BACTERIA,URINE Moderate /HPF (None Seen); SQUAMOUS EPITHELIAL CELL,UR RARE Squamous (<= Few)
== END 2019-09-15 19:12 | disposition left against medical advice (07) ==
LOC: ED 15:13
DX: Z53.21 Procedure and treatment not carried out due to patient leaving prior to being seen by health care provider (principal); R39.0 Extravasation of urine; D64.9 Anemia, unspecified; L89.43 Pressure ulcer of contiguous site of back, buttock and hip, stage 3; R68.89 Other general symptoms and signs
CPT/HCPCS: 71046; 80053; 81001; 81003; 85025; 87086; 87181

== ENCOUNTER 2019-09-26 08:00 | Outpatient (CLI) | payer MEDICARE, MEDICAID ==
[2019-09-26 22:49] LABS: BILIRUBIN,URINE NEGATIVE (NEGATIVE); CLARITY,URINE HAZY (CLEAR); GLUCOSE, URINE (UA) NEGATIVE (NEGATIVE); KETONES,URINE (UA) NEGATIVE (NEGATIVE); LEUKOCYTE ESTERASE, URINE SMALL (NEGATIVE); NITRITE,URINE NEGATIVE (NEGATIVE); OCCULT BLOOD,URINE MODERATE (NEGATIVE); PROTEIN,URINE NEGATIVE (NEGATIVE); UROBILINOGEN,URINE 0.2 (NORMAL) E.U./dL (NORMAL)
[2019-09-26 22:59] LABS: BACTERIA,URINE Rare /HPF (None Seen); SQUAMOUS EPITHELIAL CELL,UR RARE Squamous (<= Few)
== END 2019-09-26 23:59 | disposition home or self-care (01) ==
LOC: LAB.R 08:00
DX: N39.0 Urinary tract infection, site not specified (principal)
CPT/HCPCS: 81001; 81003; 87077; 87086; 87181

== ENCOUNTER 2019-10-05 13:02 | Outpatient (CLI) | payer MEDICARE, MEDICAID | END 2019-10-05 13:03 | disposition critical access hospital (66) | LOC: EMS 13:02 | PROVIDERS: ATTEND Surgery | DX: R41.82 Altered mental status, unspecified (principal); R09.89 Other specified symptoms and signs involving the circulatory and respiratory systems; N39.0 Urinary tract infection, site not specified; G35 Multiple sclerosis; Z74.01 Bed confinement status | CPT/HCPCS: A0425; A0428; A0429 ==

== ENCOUNTER 2019-10-05 13:08 | Emergency (ER) | payer MEDICARE, MEDICAID ==
--- NOTE | 2019-10-05 13:50 | ED Physician Documentation ---
PD HPI ALTERED MENTAL STATUS - Stated complaint Stated Complaint: ALOC - Chief complaint Chief Complaint: Neuro - History obtained from History obtained from: Patient, EMS, Other (PMD) - History of Present Illness Timing - onset: Today Timing - duration: Hours Timing - details: Abrupt onset, Now resolved Quality / character: Unresponsive Associated symptoms: No: Fever, Headache, Stiff neck, Dyspnea, Cough, NVD, Urinary sx, General weakness, Focal weakness, Seizure activity, Syncope Contributing factors: Recent illness, Other (assisted resident with advanced MS.) Basline status: Alert and oriented X 3, Wheelchair, [facility] facility Similar symptoms before: Has not had sx before Recently seen: Other (is a resident of [facility] seen today by Agusto) - Additional information Additional information: 69-year-old female with a history of advanced MS who is wheelchair-bound and in [place] [facility] was found today to be u nresponsive. She is normally able to sit in chit chat and today they were unable to get her attention with a deep sternal rub. She was transported by ambulance to the emergency department she did make 1 contact visually on arrival to the emergency department and fell back asleep. She was in the emergency department for less than 20 minutes when she had full recovery of her wits. She is now awake talking normally with normal mentation. She does state that she feels sleepy and fatigued more than usual. 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: Fibroids : Incontinence, Chronic bladder infection HEENT: None Psych: Depression, Anxiety Musculoskeletal: Other Derm: Other - Past Surgical History Past Surgical History: Yes General: Colonoscopy Ortho: Other - Present Medications Home Medications: Ambulatory Orders Medication Instructions Recorded Confirmed Acetaminophen [Tylenol Extra 500 - 1,000 mg PO Q6HR PRN 01/28/18 07/07/19 Strength] Aspirin [Adult Aspirin] 81 mg PO DAILY 01/28/18 07/07/19 Bisacodyl Supp [Dulcolax Supp] 1 supp MO DAILY PRN 01/28/18 07/07/19 Cholecalciferol (Vitamin D3) 2,000 unit PO DAILY 01/28/18 07/07/19 [Vitamin D] Diclofenac Sodium [Voltaren] 2 - 4 gm TOP TID PRN MDD 32gm 01/28/18 07/07/19 bisacodyL [Bisacodyl] 5 mg PO DAILY 01/28/18 07/07/19 polyethylene glycoL 3350 [Miralax] 17 gm PO DAILY 01/28/18 07/07/19 Baclofen 5 tab PO TID 08/04/18 07/07/19 Calcium Carbonate [Tums (Calcium 1,000 mg PO Q4HR PRN 11/09/18 07/07/19 Carbonate 500mg)] DULoxetine [Cymbalta] 60 mg PO DAILY 11/09/18 07/07/19 Ferrous Gluconate [Iron] 240 mg PO DAILY 11/09/18 07/07/19 Gabapentin 100 mg PO DAILY 11/09/18 07/07/19 Gabapentin [Neurontin] 300 mg PO DAILY 11/09/18 07/07/19 HYDROcod/ACETAM 5/325 [[employer] 5/325] 0.5 - 1 tab PO Q4HR PRN 11/09/18 07/07/19 Hydrochlorothiazide 25 mg PO DAILY 11/09/18 07/07/19 Lovastatin 10 mg PO DAILY 11/09/18 07/07/19 Naloxone HCl 0.1 ml SLY PRN PRN 11/09/18 07/07/19 Oxybutynin [Ditropan] 5 mg PO DAILY 11/09/18 07/07/19 fentaNYL [Fentanyl 75mcg patch] 25 mcg TOP .Q3DAYS 11/09/18 07/07/19 Hydrocortisone [Ala-Jeffy] 1 applic TD BID 06/07/19 07/07/19 Sennosides [Senna Lax] 8.6 mg PO BID 06/07/19 07/07/19 Cephalexin [Keflex] 500 mg PO Q6H #28 capsule 10/05/19 - Allergies Allergies/Adverse Reactions: Allergies Allergy/AdvReac Type Severity Reaction Status Date / Time nystatin Allergy Unknown Verified 10/05/19 13:22 Penicillins Allergy Unknown Verified 10/05/19 13:22 - Social History Does the pt smoke?: No Smoking Status: Former smoker Does the pt drink ETOH?: No Does the pt have substance abuse?: No - Immunizations Immunizations are current?: Yes - POLST Patient has POLST: Yes PD ED PE NORMAL - Vitals Vital signs reviewed: Yes (normal ) - General General: Alert and oriented X 3, No acute distress, Well developed/nourished - HEENT HEENT: Atraumatic, PERRL, EOMI - Neck Neck: Supple, no meningeal sign, No bony TTP - Cardiac Cardiac: RRR, No murmur - Respiratory Respiratory: No respiratory distress, Clear bilaterally - Abdomen Abdomen: Soft, Non tender, Other - Back Back: No CVA TTP, No spinal TTP - Derm Derm: Normal color, Warm and dry, No rash - Extremities Extremities: No deformity, No edema - Neuro Neuro: Alert and oriented X 3, Normal speech Eye Opening: Spontaneous Motor: Obeys Commands Verbal: Oriented GCS Score: 15 - Psych Psych: Normal mood, Normal affect Results - Vitals Vitals: Vital Signs - 24 hr 10/05/19 10/05/19 10/05/19 13:17 14:20 17:53 Temperature 97.7 C H Heart Rate 71 68 67 Respiratory 18 23 16 Rate Blood Pressure 127/72 126/72 127/60 O2 Saturation 98 99 98 Oxygen O2 Source Room air - Labs Labs: Laboratory Tests 10/05/19 10/05/19 10/05/19 14:03 14:03 14:26 WBC 12.7 H RBC 4.21 Hgb 12.5 Hct 40.2 MCV 95.5 MCH 29.7 MCHC 31.1 L RDW 14.1 Plt Count 417 MPV 9.9 Neut # (Auto) 8.5 H Lymph # (Auto) 2.6 Mcculloch # (Auto) 1.1 H Eos # (Auto) 0.4 Baso # (Auto) 0.1 Absolute Nucleated RBC 0.00 Nucleated RBC % 0.0 Sodium 138 Potassium 3.5 Chloride 93 L Carbon Dioxide 34 H Anion Gap 11.0 BUN 19 Creatinine 0.4 Estimated GFR (MDRD) 157 Glucose 109 H Calcium 9.0 Total Bilirubin 0.3 AST 12 ALT 10 Alkaline Phosphatase 84 Total Protein 8.0 Albumin 3.4 Globulin 4.6 H Albumin/Globulin Ratio 0.7 L Lipase 24 Urine Color LT. YELLOW Urine Clarity CLEAR Urine pH 8.0 H Ur Specific [place] 1.010 Urine Protein NEGATIVE Urine Glucose (UA) NEGATIVE Urine Ketones NEGATIVE Urine Occult Blood SMALL H Urine Nitrite POSITIVE H Urine Bilirubin NEGATIVE Urine Urobilinogen 0.2 (NORMAL) Ur Leukocyte Esterase LARGE H Urine RBC 0-5 Urine WBC 6-10 H Ur Squamous Epith Cells RARE Squamous Urine Crystals 11-25 Triple Phos Urine Bacteria Rare Ur Microscopic Review INDICATED Urine Culture Comments INDICATED - Rads (name of study) chest Radiology: Prelim report reviewed (Impression: No consolidation. ), EMP read indepedently, See rad report PD MEDICAL DECISION MAKING - ED course Complexity details: reviewed results, re-evaluated patient, considered differential, d/w patient, d/w PMD ED course: 69-year-old female with altered level of consciousness today wakes up in the emergency department appears alert and cooperative. She remains cooperative and alert and she is found to have urinary tract infection. Dr. Liz at [facility] is consulted in the case and he indicates that she has had a recent urinalysis showing infection with Proteus at which time she was asymptomatic and she was not treated. Today review of the urine shows evidence of infection and we will treat with ceftriaxone here and Keflex at home as these were sensitive to the Proteus. Departure - Departure Disposition: 01 Home, Self Care Clinical Impression: Urinary tract infection Qualifiers: Urinary tract infection type: acute cystitis Hematuria presence: without hematuria Qualified Code(s): N30.00 - Acute cystitis without hematuria Condition: Stable Instructions: ED UTI Cystitis Female Follow-Up: Vega Liz DO [Primary Care Provider] - Prescriptions: Cephalexin [Keflex] 500 mg PO Q6H #28 capsule Discharge Date/Time: 10/05/19 18:07
[2019-10-05 14:34] LABS: ALBUMIN 3.4 g/dL (3.2-5.5); ALBUMIN/GLOBULIN RATIO 0.7 (1.0-2.2); BILIRUBIN,TOTAL 0.3 mg/dL (0.2-1.0); CREATININE 0.4 mg/dL (0.4-1.0)
[2019-10-05 14:52] LABS: BASOPHILS # (AUTO) 0.1 10^3/uL (0.0-0.1); BASOPHILS % (AUTO) 0.6 %; EOSINOPHILS # (AUTO) 0.4 10^3/uL (0.0-0.7); EOSINOPHILS % (AUTO) 2.7 %; HGB - HEMOGLOBIN 12.5 g/dL (12.0-16.0); LYMPHOCYTES # (AUTO) 2.6 10^3/uL (1.5-3.5); LYMPHOCYTES % (AUTO) 20.7 %; MEAN CORPUSCULAR HEMOGLOBIN 29.7 pg (27.0-31.0); MEAN CORPUSCULAR HGB CONC 31.1 g/dL (32.0-36.0); MEAN CORPUSCULAR VOLUME 95.5 fL (81.0-99.0); MEAN PLATELET VOLUME 9.9 fL (7.9-10.8); MONOCYTES # (AUTO) 1.1 10^3/uL (0.0-1.0); MONOCYTES % (AUTO) 8.3 %; NEUTROPHILS # (AUTO) 8.5 10^3/uL (1.5-6.6); NEUTROPHILS % (AUTO) 67.2 %; PLT - PLATELET COUNT 417 10^3/uL (130-450); RED BLOOD COUNT 4.21 10^6/uL (4.20-5.40); RED CELL DISTRIBUTION WIDTH 14.1 % (12.0-15.0); WHITE BLOOD COUNT 12.7 x10^3/uL (4.8-10.8)
--- NOTE | 2019-10-05 15:07 | XRAY Report ---
Reason: chest pain Procedure Date: 10/05/2019 Accession Number: [id number] / [id number] Procedure: XR - Chest 1 View X-Ray CPT Code: 95764 Final Report FULL RESULT: EXAM: CHEST RADIOGRAPHY EXAM DATE: 10/05/2019 02:54 PM. CLINICAL HISTORY: Chest pain. COMPARISON: CHEST 2 VIEW 09/15/2019 4:12 PM. TECHNIQUE: 1 view. FINDINGS: Lungs/Pleura: No focal opacities evident. No pleural effusion. No pneumothorax. Mediastinum: Atherosclerotic aortic calcification. Other: Diffuse osteopenia. Scoliosis. IMPRESSION: No consolidation. RADIA
[2019-10-05 16:34] LABS: BILIRUBIN,URINE NEGATIVE (NEGATIVE); GLUCOSE, URINE (UA) NEGATIVE (NEGATIVE); KETONES,URINE (UA) NEGATIVE (NEGATIVE); LEUKOCYTE ESTERASE, URINE LARGE (NEGATIVE); NITRITE,URINE POSITIVE (NEGATIVE); OCCULT BLOOD,URINE SMALL (NEGATIVE); PROTEIN,URINE NEGATIVE (NEGATIVE); UROBILINOGEN,URINE 0.2 (NORMAL) E.U./dL (NORMAL)
[2019-10-05 16:43] LABS: BACTERIA,URINE Rare /HPF (None Seen); CLARITY,URINE CLEAR (CLEAR); CRYSTALS,URINE 11-25 Triple Phos /LPF; RBC,URINE 0-5 /HPF (0-5); SQUAMOUS EPITHELIAL CELL,UR RARE Squamous (<= Few)
[2019-10-05] MEDS ORDERED: cefTRIAXone 1 GM in SODIUM CHLORIDE 0.9% MINIBAG 100 ML IV STA (16:52)
[2019-10-05] MEDS ORDERED: cefTRIAXone 1 GM VIAL IM STA (17:03)
[2019-10-05] MEDS ORDERED: LIDOCAINE 1% 2 ML VIAL MC ONE (17:03)
[2019-10-05 17:54] VITALS: BP 127/60
== END 2019-10-05 18:07 | disposition home or self-care (01) ==
LOC: EDUNIT# → ED 13:08
DX: N30.00 Acute cystitis without hematuria (principal); G35 Multiple sclerosis; Z87.891 Personal history of nicotine dependence
CPT/HCPCS: 36415; 71045; 80053; 81001; 81003; 83690; 85025; 87077; 87086; 87181; 99284

== ENCOUNTER 2019-10-05 17:54 | Outpatient (CLI) | payer MEDICARE, MEDICAID | END 2019-10-05 17:55 | disposition home or self-care (01) | LOC: EMS 17:54 | PROVIDERS: ATTEND Surgery | DX: N39.0 Urinary tract infection, site not specified (principal); G35 Multiple sclerosis; Z74.01 Bed confinement status ==

== ENCOUNTER 2019-12-19 08:00 | Outpatient (CLI) | payer MEDICARE, MEDICAID ==
[2019-12-19 18:52] LABS: BASOPHILS # (AUTO) 0.1 10^3/uL (0.0-0.1); BASOPHILS % (AUTO) 0.6 %; EOSINOPHILS # (AUTO) 0.3 10^3/uL (0.0-0.7); EOSINOPHILS % (AUTO) 2.3 %; HGB - HEMOGLOBIN 12.1 g/dL (12.0-16.0); LYMPHOCYTES # (AUTO) 1.9 10^3/uL (1.5-3.5); LYMPHOCYTES % (AUTO) 13.2 %; MEAN CORPUSCULAR HEMOGLOBIN 28.8 pg (27.0-31.0); MEAN CORPUSCULAR HGB CONC 30.5 g/dL (32.0-36.0); MEAN CORPUSCULAR VOLUME 94.5 fL (81.0-99.0); MONOCYTES # (AUTO) 0.9 10^3/uL (0.0-1.0); MONOCYTES % (AUTO) 6.6 %; NEUTROPHILS # (AUTO) 10.9 10^3/uL (1.5-6.6); NEUTROPHILS % (AUTO) 76.9 %; PLT - PLATELET COUNT 394 10^3/uL (130-450); RED CELL DISTRIBUTION WIDTH 14.1 % (12.0-15.0); WHITE BLOOD COUNT 14.2 x10^3/uL (4.8-10.8)
[2019-12-19 18:59] LABS: CALCIUM 8.7 mg/dL (8.5-10.3); CREATININE 0.5 mg/dL (0.4-1.0)
[2019-12-19 19:36] LABS: THYROID STIMULATING HORMONE 1.34 uIU/mL (0.34-5.60)
[2019-12-19 19:41] LABS: FERRITIN 20.8 ng/mL (11.0-306.8)
== END 2019-12-19 23:59 | disposition home or self-care (01) ==
LOC: LAB.R 08:00
DX: G35 Multiple sclerosis (principal); D64.9 Anemia, unspecified; F34.1 Dysthymic disorder
CPT/HCPCS: 80048; 82728; 83921; 84443; 85025

== ENCOUNTER 2020-01-18 15:08 | Outpatient (CLI) | payer MEDICARE, MEDICAID ==
--- NOTE | 2020-01-18 16:57 | XRAY Report ---
PROCEDURE: Ankle 3 View LT INDICATIONS: INCREASED PAIN TECHNIQUE: 3 views of the ankle were acquired. COMPARISON: None FINDINGS: Bones: Bones are diffusely osteopenic. No fractures or dislocations. Ankle mortise is normally alig camelia. No suspicious bony lesions. Soft tissues: No tibiotalar joint effusion. Achilles tendon appears normal. IMPRESSION: No fracture. No acute osseous lesion. If there is continued clinical concern for pathology, then repe at plain film radiographs (7-10 days) or advanced imaging (CT, MR, bone scan) should be considered fo r further evaluation. Reviewed by: Mercedes Brush MD, PhD on 01/18/2020 4:55 PM PDT Approved by: Mercedes Brush MD, PhD on 01/18/2020 4:55 PM PDT Station ID: [id number]
--- NOTE | 2020-01-18 16:58 | XRAY Report ---
PROCEDURE: Foot 3 View LT INDICATIONS: Lt foot ankle increasing pain past 3 months TECHNIQUE: 3 views of the foot were acquired. COMPARISON: None FINDINGS: Bones: Bones are diffusely osteopenic. No fractures or dislocations. No suspicious bony lesions. Soft tissues: No tibiotalar joint effusion. Achilles tendon appears normal. IMPRESSION: No fracture. No acute osseous lesion. If there is continued clinical concern for pathology, then repe at plain film radiographs (7-10 days) or advanced imaging (CT, MR, bone scan) should be considered fo r further evaluation. Reviewed by: Mercedes Brush MD, PhD on 01/18/2020 4:57 PM PDT Approved by: Mercedes Brush MD, PhD on 01/18/2020 4:57 PM PDT Station ID: [id number]
== END 2020-01-18 15:09 | disposition home or self-care (01) ==
LOC: DI 15:08
PROVIDERS: ATTEND Nurse Practitioner
DX: M79.672 Pain in left foot (principal)

== ENCOUNTER 2020-01-19 19:30 | Outpatient (CLI) | payer MEDICARE, MEDICAID ==
[2020-01-19 20:25] LABS: BILIRUBIN,URINE NEGATIVE (NEGATIVE); GLUCOSE, URINE (UA) NEGATIVE (NEGATIVE); KETONES,URINE (UA) NEGATIVE (NEGATIVE); LEUKOCYTE ESTERASE, URINE LARGE (NEGATIVE); NITRITE,URINE NEGATIVE (NEGATIVE); OCCULT BLOOD,URINE MODERATE (NEGATIVE); PROTEIN,URINE NEGATIVE (NEGATIVE); UROBILINOGEN,URINE 0.2 (NORMAL) E.U./dL (NORMAL)
[2020-01-19 20:28] LABS: CLARITY,URINE HAZY (CLEAR)
[2020-01-19 20:32] LABS: BACTERIA,URINE Many /HPF (None Seen); SQUAMOUS EPITHELIAL CELL,UR RARE Squamous (<= Few); WBC CLUMPS,URINE PRESENT
== END 2020-01-19 23:59 | disposition home or self-care (01) ==
LOC: LAB.R 19:30
DX: R82.79 Other abnormal findings on microbiological examination of urine (principal)
CPT/HCPCS: 81001; 81003; 87077; 87086; 87181

== ENCOUNTER 2020-02-28 16:55 | Outpatient (CLI) | payer MEDICARE, MEDICAID ==
[2020-02-28 17:53] LABS: BASOPHILS # (AUTO) 0.1 10^3/uL (0.0-0.1); BASOPHILS % (AUTO) 0.7 %; EOSINOPHILS # (AUTO) 0.4 10^3/uL (0.0-0.7); EOSINOPHILS % (AUTO) 2.8 %; HGB - HEMOGLOBIN 11.6 g/dL (12.0-16.0); LYMPHOCYTES # (AUTO) 3.6 10^3/uL (1.5-3.5); MEAN CORPUSCULAR HEMOGLOBIN 28.6 pg (27.0-31.0); MEAN CORPUSCULAR HGB CONC 30.4 g/dL (32.0-36.0); MEAN CORPUSCULAR VOLUME 94.1 fL (81.0-99.0); MEAN PLATELET VOLUME 10.4 fL (7.9-10.8); MONOCYTES % (AUTO) 6.6 %; NEUTROPHILS # (AUTO) 9.7 10^3/uL (1.5-6.6); NEUTROPHILS % (AUTO) 65.3 %; PLT - PLATELET COUNT 390 10^3/uL (130-450); RED BLOOD COUNT 4.05 10^6/uL (4.20-5.40); RED CELL DISTRIBUTION WIDTH 14.2 % (12.0-15.0); WHITE BLOOD COUNT 14.8 x10^3/uL (4.8-10.8)
[2020-02-28 17:58] LABS: CALCIUM 8.8 mg/dL (8.5-10.3); CREATININE 0.4 mg/dL (0.4-1.0)
== END 2020-02-28 23:59 | disposition home or self-care (01) ==
LOC: LAB.R 16:55
DX: E87.6 Hypokalemia (principal); N39.0 Urinary tract infection, site not specified
CPT/HCPCS: 80048; 85025

== ENCOUNTER 2020-05-14 13:05 | Outpatient (CLI) | payer MEDICARE, MEDICAID ==
[2020-05-14 13:43] LABS: BASOPHILS # (AUTO) 0.1 10^3/uL (0.0-0.1); BASOPHILS % (AUTO) 0.5 %; EOSINOPHILS # (AUTO) 0.2 10^3/uL (0.0-0.7); EOSINOPHILS % (AUTO) 1.4 %; HGB - HEMOGLOBIN 13.8 g/dL (12.0-16.0); LYMPHOCYTES # (AUTO) 2.2 10^3/uL (1.5-3.5); LYMPHOCYTES % (AUTO) 17.2 %; MEAN CORPUSCULAR HEMOGLOBIN 29.1 pg (27.0-31.0); MEAN CORPUSCULAR HGB CONC 31.1 g/dL (32.0-36.0); MEAN CORPUSCULAR VOLUME 93.5 fL (81.0-99.0); MONOCYTES # (AUTO) 0.8 10^3/uL (0.0-1.0); MONOCYTES % (AUTO) 6.2 %; NEUTROPHILS # (AUTO) 9.3 10^3/uL (1.5-6.6); NEUTROPHILS % (AUTO) 74.2 %; PLT - PLATELET COUNT 444 10^3/uL (130-450); RED BLOOD COUNT 4.75 10^6/uL (4.20-5.40); RED CELL DISTRIBUTION WIDTH 13.6 % (12.0-15.0); WHITE BLOOD COUNT 12.5 x10^3/uL (4.8-10.8)
[2020-05-14 14:01] LABS: ALBUMIN 3.5 g/dL (3.2-5.5); ALBUMIN/GLOBULIN RATIO 0.8 (1.0-2.2); BILIRUBIN,TOTAL 0.2 mg/dL (0.2-1.0); CALCIUM 9.2 mg/dL (8.5-10.3); CREATININE 0.4 mg/dL (0.4-1.0); TOTAL PROTEIN 7.8 g/dL (6.7-8.2)
== END 2020-05-14 23:59 | disposition home or self-care (01) ==
LOC: LAB.R 13:05
DX: G24.01 Drug induced subacute dyskinesia (principal); I10 Essential (primary) hypertension; D72.829 Elevated white blood cell count, unspecified; D64.9 Anemia, unspecified
CPT/HCPCS: 80053; 80299; 81599; 82728; 85025

== ENCOUNTER 2020-06-15 08:00 | Outpatient (CLI) | payer MEDICARE, MEDICAID ==
[2020-06-15 14:01] LABS: BASOPHILS # (AUTO) 0.1 10^3/uL (0.0-0.1); BASOPHILS % (AUTO) 0.5 %; EOSINOPHILS # (AUTO) 0.4 10^3/uL (0.0-0.7); EOSINOPHILS % (AUTO) 3.3 %; HGB - HEMOGLOBIN 12.1 g/dL (12.0-16.0); LYMPHOCYTES # (AUTO) 2.4 10^3/uL (1.5-3.5); LYMPHOCYTES % (AUTO) 20.9 %; MEAN CORPUSCULAR HEMOGLOBIN 28.7 pg (27.0-31.0); MEAN CORPUSCULAR HGB CONC 30.6 g/dL (32.0-36.0); MEAN CORPUSCULAR VOLUME 94.1 fL (81.0-99.0); MEAN PLATELET VOLUME 9.7 fL (7.9-10.8); MONOCYTES # (AUTO) 0.9 10^3/uL (0.0-1.0); MONOCYTES % (AUTO) 7.3 %; NEUTROPHILS # (AUTO) 7.9 10^3/uL (1.5-6.6); NEUTROPHILS % (AUTO) 67.6 %; PLT - PLATELET COUNT 411 10^3/uL (130-450); RED BLOOD COUNT 4.21 10^6/uL (4.20-5.40); RED CELL DISTRIBUTION WIDTH 13.9 % (12.0-15.0); WHITE BLOOD COUNT 11.7 x10^3/uL (4.8-10.8)
[2020-06-15 14:10] LABS: ALBUMIN 3.1 g/dL (3.2-5.5); ALBUMIN/GLOBULIN RATIO 0.7 (1.0-2.2); ALKALINE PHOSPHATASE 92 IU/L (42-121); ALT ALANINE AMINOTRANSFERASE < 10 IU/L (10-60); AST ASPARTATE AMINOTRANSFERASE 11 IU/L (10-42); BILIRUBIN,TOTAL 0.2 mg/dL (0.2-1.0); BUN - BLOOD UREA NITROGEN 19 mg/dL (6-20); CALCIUM 8.6 mg/dL (8.5-10.3); CARBON DIOXIDE - CO2 30 mmol/L (21-32); CHLORIDE 95 mmol/L (101-111); CREATININE 0.3 mg/dL (0.4-1.0); GLUCOSE 98 mg/dL (70-100); SODIUM 135 mmol/L (135-145); TOTAL PROTEIN 7.7 g/dL (6.7-8.2)
== END 2020-06-15 23:59 | disposition home or self-care (01) ==
LOC: LAB.R 08:00
DX: E87.6 Hypokalemia (principal); D64.9 Anemia, unspecified; E46 Unspecified protein-calorie malnutrition
CPT/HCPCS: 80053; 85025

== ENCOUNTER 2020-07-02 12:40 | Outpatient (CLI) | payer MEDICARE, MEDICAID ==
--- NOTE | 2020-07-03 08:59 | Mammography Report ---
BILATERAL DIGITAL SCREENING MAMMOGRAM: 07/02/2020 CLINICAL: Routine screening. Comparison is made to exams dated: 10/02/2014 mammogram, 08/10/2013 mammogram, and 02/11/2011 mammogram - [facility]. There are scattered fibroglandular elements in both breasts. There is a possible equal density asymmetry in the right breast posterior depth superior region seen on the mediolateral oblique view only. This is more prominent. No other significant masses, calcifications, or other findings are seen in either breast. IMPRESSION: INCOMPLETE: NEEDS ADDITIONAL IMAGING EVALUATION The possible equal density asymmetry in the right breast is indeterminate. Additional views with pos sible ultrasound are recommended. This exam was interpreted at Station ID: [id number]. NOTE: For mammograms, a report in lay terms will be sent to the patient. Approximately 15% of breast malignancies will not be visualized mammographically. In the management of a palpable breast mass, a negative mammogram must not discourage biopsy of a clinically suspicious lesion. Electronically Signed By: Grabiel rubalcava/meena:07/02/2020 18:00:49 ACR BI-RADS Category 0: Incomplete 3340F PARENCHYMAL PATTERN: (A) - The breast(s) demonstrate(s) scattered fibroglandular densities. BI-RADS CATEGORY: (0) - 0 Mammo and [place] [id number] Immediate follow-up LATERALITY: (R)
== END 2020-07-02 12:41 | disposition home or self-care (01) ==
LOC: DI 12:40
DX: Z12.31 Encounter for screening mammogram for malignant neoplasm of breast (principal); R92.8 Other abnormal and inconclusive findings on diagnostic imaging of breast
CPT/HCPCS: 77067

== ENCOUNTER 2020-07-23 11:40 | Outpatient (CLI) | payer MEDICARE, MEDICAID ==
[2020-07-22 20:55] LABS: BILIRUBIN,URINE NEGATIVE (NEGATIVE); GLUCOSE, URINE (UA) NEGATIVE (NEGATIVE); KETONES,URINE (UA) NEGATIVE (NEGATIVE); LEUKOCYTE ESTERASE, URINE LARGE (NEGATIVE); NITRITE,URINE NEGATIVE (NEGATIVE); OCCULT BLOOD,URINE SMALL (NEGATIVE); PH,URINE 8.5 PH (5.0-7.5); PROTEIN,URINE NEGATIVE (NEGATIVE); UROBILINOGEN,URINE 0.2 (NORMAL) E.U./dL (NORMAL)
[2020-07-22 21:02] LABS: CLARITY,URINE CLOUDY (CLEAR)
[2020-07-22 21:09] LABS: BACTERIA,URINE Many /HPF (None Seen); SQUAMOUS EPITHELIAL CELL,UR RARE Squamous (<= Few)
== END 2020-07-23 23:59 | disposition home or self-care (01) ==
LOC: LAB.R 11:40
DX: N39.0 Urinary tract infection, site not specified (principal)
CPT/HCPCS: 81001; 81003; 87077; 87086; 87181

== ENCOUNTER 2020-07-27 18:50 | Outpatient (CLI) | payer MEDICARE, MEDICAID ==
[2020-07-27 21:22] LABS: BASOPHILS # (AUTO) 0.1 10^3/uL (0.0-0.1); BASOPHILS % (AUTO) 0.5 %; EOSINOPHILS # (AUTO) 0.5 10^3/uL (0.0-0.7); EOSINOPHILS % (AUTO) 3.5 %; HGB - HEMOGLOBIN 12.1 g/dL (12.0-16.0); LYMPHOCYTES # (AUTO) 3.3 10^3/uL (1.5-3.5); LYMPHOCYTES % (AUTO) 21.5 %; MEAN CORPUSCULAR HEMOGLOBIN 28.7 pg (27.0-31.0); MEAN CORPUSCULAR HGB CONC 30.3 g/dL (32.0-36.0); MEAN PLATELET VOLUME 10.4 fL (7.9-10.8); MONOCYTES # (AUTO) 1.1 10^3/uL (0.0-1.0); MONOCYTES % (AUTO) 6.9 %; NEUTROPHILS # (AUTO) 10.3 10^3/uL (1.5-6.6); NEUTROPHILS % (AUTO) 67.2 %; PLT - PLATELET COUNT 424 10^3/uL (130-450); RED BLOOD COUNT 4.21 10^6/uL (4.20-5.40); RED CELL DISTRIBUTION WIDTH 14.4 % (12.0-15.0); WHITE BLOOD COUNT 15.3 x10^3/uL (4.8-10.8)
--- OUTSIDE RECORDS SUMMARY | 2020-08-01 01:58 | EXTERNAL MEDICAL SUMMARY RPT | Continuity of Care Document ---
:1950 Demographics Phone Unavailable Preferred Language Unknown Marital Status Unknown Gnosticist Affiliation Unknown Race Unknown Ethnic Group Unknown Author Organization [place] Address [address] [phone] Phone Care Team Providers Name Role Phone Liz Unavailable Unavailable Problems date description facility 2020-05-14 00:00 ANEMIA, UNSPECIFIED [facility] 2020-05-14 00:00 ELEVATED WHITE BLOOD CELL COUNT, Formerly [facility] UNSPECIFIED 2020-05-14 00:00 DRUG INDUCED SUBACUTE DYSKINESIA Formerly [facility] 2020-05-14 00:00 ESSENTIAL (PRIMARY) HYPERTENSION [facility] 2020-05-14 13:05 ANEMIA, UNSPECIFIED [facility] 2020-05-14 13:05 ELEVATED WHITE BLOOD CELL COUNT, Formerly [facility] UNSPECIFIED 2020-05-14 13:05 DRUG INDUCED SUBACUTE DYSKINESIA Formerly [facility] 2020-05-14 13:05 ESSENTIAL (PRIMARY) HYPERTENSION [facility] 2020-07-22 00:00 URINARY TRACT INFECTION, SITE NOT [facility] SPECIFIED 2020-07-22 11:40 URINARY TRACT INFECTION, SITE NOT [facility] SPECIFIED 2020-07-23 11:40 URINARY TRACT INFECTION, SITE NOT [facility] SPECIFIED 2020-07-27 00:00 NASAL CONGESTION [facility] 2020-07-27 18:50 NASAL CONGESTION [facility] 2020-07-29 00:00 OTHER NONSPECIFIC ABNORMAL FINDING [facility] LUNG FIELD 2020-07-29 12:02 OTHER NONSPECIFIC ABNORMAL FINDING [facility] LUNG FIELD 2020-07-31 11:41 COUGH [facility] Allergies date description facility MEPERIDINE [facility] NO KNOWN ENVIRONMENTAL ALLERGIES Former[facility] NO ALLERGY INFORMATION AVAILABLE [facility] PENICILLINS [facility] TETRACYCLINES [facility] SULFA (SULFONAMIDE ANTIBIOTICS) [facility] NO KNOWN ALLERGIES [facility] SHELLFISH CONTAINING PRODUCTS [facility] CODEINE [facility] AMLODIPINE [facility] [place] LISINOPRIL [facility] [place] IODINE [facility] Penicillins [facility] nystatin [facility] NO KNOWN ENVIRONMENTAL ALLERGIES [facility] NO KNOWN ALLERGIES [facility] [place] Penicillins [facility] nystatin [facility] Results Social History date description facility [id number]
== END 2020-07-27 23:59 | disposition home or self-care (01) ==
LOC: LAB.R 18:50
DX: R53.81 Other malaise (principal)
CPT/HCPCS: 85025

== ENCOUNTER 2020-07-31 11:41 | Outpatient (CLI) | payer MEDICARE, MEDICAID ==
--- NOTE | 2020-07-31 12:09 | XRAY Report ---
PROCEDURE: Chest 2 View X-Ray INDICATIONS: WET COUGH NON PRODUCTIVE HEAVY RHONCHUS TECHNIQUE: 2 view(s) of the chest. COMPARISON: None. FINDINGS: Surgical changes and devices: None. Lungs and pleura: No pleural effusions or pneumothorax. Lungs are clear. Mediastinum: Mediastinal contours are normal. Heart size is normal. Bones and chest wall: No suspicious bony abnormalities. Soft tissues appear unremarkable. IMPRESSION: No acute cardiopulmonary process demonstrated radiographically. Reviewed by: Roger Wood MD on 07/31/2020 12:07 PM PST Approved by: Roger Wood MD on 07/31/2020 12:07 PM [facility] Station ID: [id number]
== END 2020-07-31 11:42 | disposition home or self-care (01) ==
LOC: DI 11:41
PROVIDERS: ATTEND Family Medicine
DX: R05 Cough (principal); R09.89 Other specified symptoms and signs involving the circulatory and respiratory systems

== ENCOUNTER 2020-08-23 16:16 | Outpatient (CLI) | payer MEDICARE, MEDICAID | END 2020-08-23 23:59 | disposition critical access hospital (66) | LOC: EMS 16:16 | PROVIDERS: ATTEND Emergency Medicine | DX: R40.4 Transient alteration of awareness (principal) | CPT/HCPCS: A0425; A0429 ==

== ENCOUNTER 2020-08-23 16:22 | Emergency (ER) | payer MEDICARE, MEDICAID ==
--- NOTE | 2020-08-23 16:28 | ED Physician Documentation ---
History of Present Illness - Stated complaint Stated Complaint: UNRESPONSIVE - History obtained from History obtained from: EMS - Additonal information Additional information: 70-year-old woman who is senior living bound with MS, wheelchair-bound with chronic Good in place was in physical therapy today and suddenly said she was fading out or losing her hearing and then has been basically obtunded ever since without responsiveness. Blood pressure, other vitals and blood sugar were unremarkable. 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 : Incontinence, Chronic bladder infection HEENT: None Psych: Depression, Anxiety Musculoskeletal: Other Derm: Other - Past Surgical History Past Surgical History: Yes General: Colonoscopy Ortho: Other - Present Medications Home Medications: Ambulatory Orders Medication Instructions Recorded Confirmed Acetaminophen [Tylenol Extra 500 - 1,000 mg PO Q6HR PRN 01/28/18 08/23/20 Strength] Aspirin [Adult Aspirin] 81 mg PO DAILY 01/28/18 08/23/20 Bisacodyl Supp [Dulcolax Supp] 1 supp [place] DAILY PRN 01/28/18 08/23/20 Cholecalciferol (Vitamin D3) 2,000 unit PO DAILY 01/28/18 08/23/20 [Vitamin D] polyethylene glycoL 3350 [Miralax] 17 gm PO DAILY 01/28/18 08/23/20 Baclofen 10 mg PO TID 08/04/18 08/23/20 Calcium Carbonate [Tums (Calcium 1,000 mg PO Q4HR PRN 11/09/18 08/23/20 Carbonate 500mg)] DULoxetine [Cymbalta] 60 mg PO DAILY 11/09/18 08/23/20 Ferrous Gluconate [Iron] 240 mg PO DAILY 11/09/18 08/23/20 Gabapentin 100 mg PO DAILY 11/09/18 08/23/20 Gabapentin [Neurontin] 300 mg PO DAILY 11/09/18 08/23/20 HYDROcod/ACETAM 5/325 [[place] 5/325] 0.5 - 1 tab PO Q4HR PRN 11/09/18 08/23/20 Hydrochlorothiazide 25 mg PO DAILY 11/09/18 08/23/20 Lovastatin 10 mg PO DAILY 11/09/18 08/23/20 Naloxone HCl 0.1 ml SLY PRN PRN 11/09/18 08/23/20 Oxybutynin [Ditropan] 5 mg PO DAILY 11/09/18 08/23/20 fentaNYL [Fentanyl 75mcg patch] 25 mcg TOP .Q3DAYS 11/09/18 08/23/20 Sennosides [Senna Lax] 8.6 mg PO BID 06/07/19 08/23/20 Albuterol Sulf [Ventolin Hfa 2 puffs QPM 08/23/20 08/23/20 Inhaler] - Allergies Allergies/Adverse Reactions: Allergies Allergy/AdvReac Type Severity Reaction Status Date / Time nystatin Allergy Unknown Verified 08/23/20 16:37 Penicillins Allergy Unknown Verified 08/23/20 16:37 - Social History Does the pt smoke?: No Smoking Status: Former smoker Does the pt drink ETOH?: No Does the pt have substance abuse?: No - Immunizations Immunizations are current?: Yes - POLST Patient has POLST: Yes PD ED PE NORMAL - Vitals Vital signs reviewed: Yes - General General: No acute distress, Other (She forcefully resists me trying to open either eye. She is in no distress laying in bed. She grimaces to painful stimulus including sternal rub and in all 4 extremities.) - Neck Neck: Supple, no meningeal sign, No bony TTP - Cardiac Cardiac: RRR, No murmur - Respiratory Respiratory: Other (Rhonchorous) - Abdomen Abdomen: Non tender, Other (Baclofen pump left midabd) - Back Back: No CVA TTP, No spinal TTP - Derm Derm: Normal color, Warm and dry - Neuro Motor: Withdraws to Pain Verbal: None Results - Vitals Vitals: Vital Signs - 24 hr 08/23/20 08/23/20 08/23/20 16:21 16:40 17:05 Temperature 36 C L Heart Rate 74 73 71 Respiratory 10 L 10 L 8 L Rate Blood Pressure 108/61 108/61 97/59 L O2 Saturation 95 97 98 08/23/20 08/23/20 08/23/20 17:50 18:00 18:39 Temperature Heart Rate 70 74 74 Respiratory 22 13 13 Rate Blood Pressure 118/70 105/58 L 94/51 L O2 Saturation 97 98 99 02/11/0708/23/20 08/23/20 19:06 20:08 20:32 Temperature 37 C Heart Rate 70 72 69 Respiratory 14 15 14 Rate Blood Pressure 112/58 L 124/73 104/65 O2 Saturation 96 92 90 L 08/23/20 08/23/20 21:00 21:33 Temperature Heart Rate 63 69 Respiratory 12 17 Rate Blood Pressure 104/72 116/68 O2 Saturation 91 L 92 Oxygen O2 Source Room air - EKG (time done) 1631 Rate: Rate (enter#) (72) Rhythm: NSR [place]: Normal Intervals: Normal MT QRS: Low voltage Ischemia: Non specific changes Computer interpretation: Agree with computer - Labs Labs: Laboratory Tests 08/23/20 08/23/20 08/23/20 16:05 16:35 16:40 WBC 16.0 H RBC 3.76 L Hgb 10.6 L Hct 35.5 L MCV 94.4 MCH 28.2 MCHC 29.9 L RDW 14.8 Plt Count 442 MPV 9.2 Neut # (Auto) 11.9 H Lymph # (Auto) 2.5 [place] # (Auto) 1.0 Eos # (Auto) 0.4 Baso # (Auto) 0.1 Absolute Nucleated RBC 0.00 Nucleated RBC % 0.0 Sodium Potassium Chloride Carbon Dioxide Anion Gap BUN Creatinine Estimated GFR (MDRD) Glucose Lactic Acid Calcium Magnesium Total Bilirubin AST ALT Alkaline Phosphatase Total Protein Albumin Globulin Albumin/Globulin Ratio Lipase TSH Urine Color YELLOW Urine Clarity CLOUDY Urine pH 8.0 H Ur Specific [place] 1.010 Urine Protein NEGATIVE Urine Glucose (UA) NEGATIVE Urine Ketones NEGATIVE Urine Occult Blood SMALL H Urine Nitrite POSITIVE H Urine Bilirubin NEGATIVE Urine Urobilinogen 0.2 (NORMAL) Ur Leukocyte Esterase LARGE H Urine RBC 6-10 H Urine WBC >25 H Ur Squamous Epith Cells FEW Squamous Amorphous Sediment Few Urine Bacteria Many H Urine Mucus Few Strands Ur Microscopic Review INDICATED Urine Culture Comments INDICATED Nasal Adenovirus (PCR) Nasal B. parapertussis DNA (PCR) Nasal Coronavir 229E PCR Nasal Coronavir HKU1 PCR Nasal Coronavir NL63 PCR Nasal Coronavir OC43 PCR Nasal Enterovir/Rhinovir PCR Nasal Influenza B PCR Nasal Influenza A PCR Nasal Parainfluen 1 PCR Nasal Parainfluen 2 PCR Nasal Parainfluen 3 PCR Nasal Parainfluen 4 PCR Nasal RSV (PCR) Nasal B.pertussis DNA PCR Nasal C.pneumoniae (PCR) Sly Human Metapneumo PCR Nasal M.pneumoniae (PCR) Nasal SARS-CoV-2 (PCR) Urine Opiates Screen NEGATIVE Ur Oxycodone Screen NEGATIVE Urine Methadone Screen NEGATIVE Ur Propoxyphene Screen NEGATIVE Ur Barbiturates Screen NEGATIVE Ur Tricyclics Screen NEGATIVE Ur Phencyclidine Scrn NEGATIVE Ur Amphetamine Screen NEGATIVE U Methamphetamines Scrn NEGATIVE U Benzodiazepines Scrn NEGATIVE Urine Cocaine Screen NEGATIVE U Cannabinoids Screen NEGATIVE Ethyl Alcohol 08/23/20 08/23/20 08/23/20 16:40 16:40 17:51 WBC RBC Hgb Hct MCV MCH MCHC RDW Plt Count MPV Neut # (Auto) Lymph # (Auto) [place] # (Auto) Eos # (Auto) Baso # (Auto) Absolute Nucleated RBC Nucleated RBC % Sodium 139 Potassium 3.7 Chloride 93 L Carbon Dioxide 31 Anion Gap 15.0 H BUN 20 Creatinine 0.5 Estimated GFR (MDRD) 121 Glucose 125 H Lactic Acid Calcium 9.0 Magnesium 2.1 Total Bilirubin 0.3 AST 11 ALT < 10 L Alkaline Phosphatase 95 Total Protein 7.2 Albumin 3.1 L Globulin 4.1 Albumin/Globulin Ratio 0.8 L Lipase 22 TSH 1.62 Urine Color Urine Clarity Urine pH Ur Specific [place] Urine Protein Urine Glucose (UA) Urine Ketones Urine Occult Blood Urine Nitrite Urine Bilirubin Urine Urobilinogen Ur Leukocyte Esterase Urine RBC Urine WBC Ur Squamous Epith Cells Amorphous Sediment Urine Bacteria Urine Mucus Ur Microscopic Review Urine Culture Comments Nasal Adenovirus (PCR) NOT DETECTED Nasal B. parapertussis DNA (PCR) NOT DETECTED Nasal Coronavir 229E PCR NOT DETECTED Nasal Coronavir HKU1 PCR NOT DETECTED Nasal Coronavir NL63 PCR NOT DETECTED Nasal Coronavir OC43 PCR NOT DETECTED Nasal Enterovir/Rhinovir PCR NOT DETECTED Nasal Influenza B PCR NOT DETECTED Nasal Influenza A PCR NOT DETECTED Nasal Parainfluen 1 PCR NOT DETECTED Nasal Parainfluen 2 PCR NOT DETECTED Nasal Parainfluen 3 PCR NOT DETECTED Nasal Parainfluen 4 PCR NOT DETECTED Nasal RSV (PCR) NOT DETECTED Nasal B.pertussis DNA PCR NOT DETECTED Nasal C.pneumoniae (PCR) NOT DETECTED Sly Human Metapneumo PCR NOT DETECTED Nasal M.pneumoniae (PCR) NOT DETECTED Nasal SARS-CoV-2 (PCR) NOT DETECTED Urine Opiates Screen Ur Oxycodone Screen Urine Methadone Screen Ur Propoxyphene Screen Ur Barbiturates Screen Ur Tricyclics Screen Ur Phencyclidine Scrn Ur Amphetamine Screen U Methamphetamines Scrn U Benzodiazepines Scrn Urine Cocaine Screen U Cannabinoids Screen Ethyl Alcohol < 5.0 08/23/20 18:00 WBC RBC Hgb Hct MCV MCH MCHC RDW Plt Count MPV Neut # (Auto) Lymph # (Auto) [place] # (Auto) Eos # (Auto) Baso # (Auto) Absolute Nucleated RBC Nucleated RBC % Sodium Potassium Chloride Carbon Dioxide Anion Gap BUN Creatinine Estimated GFR (MDRD) Glucose Lactic Acid 0.9 Calcium Magnesium Total Bilirubin AST ALT Alkaline Phosphatase Total Protein Albumin Globulin Albumin/Globulin Ratio Lipase TSH Urine Color Urine Clarity Urine pH Ur Specific [place] Urine Protein Urine Glucose (UA) Urine Ketones Urine Occult Blood Urine Nitrite Urine Bilirubin Urine Urobilinogen Ur Leukocyte Esterase Urine RBC Urine WBC Ur Squamous Epith Cells Amorphous Sediment Urine Bacteria Urine Mucus Ur Microscopic Review Urine Culture Comments Nasal Adenovirus (PCR) Nasal B. parapertussis DNA (PCR) Nasal Coronavir 229E PCR Nasal Coronavir HKU1 PCR Nasal Coronavir NL63 PCR Nasal Coronavir OC43 PCR Nasal Enterovir/Rhinovir PCR Nasal Influenza B PCR Nasal Influenza A PCR Nasal Parainfluen 1 PCR Nasal Parainfluen 2 PCR Nasal Parainfluen 3 PCR Nasal Parainfluen 4 PCR Nasal RSV (PCR) Nasal B.pertussis DNA PCR Nasal C.pneumoniae (PCR) Sly Human Metapneumo PCR Nasal M.pneumoniae (PCR) Nasal SARS-CoV-2 (PCR) Urine Opiates Screen Ur Oxycodone Screen Urine Methadone Screen Ur Propoxyphene Screen Ur Barbiturates Screen Ur Tricyclics Screen Ur Phencyclidine Scrn Ur Amphetamine Screen U Methamphetamines Scrn U Benzodiazepines Scrn Urine Cocaine Screen U Cannabinoids Screen Ethyl Alcohol - Rads (name of study) CT Head Radiology: EMP read contemporaneously (NAD) PD MEDICAL DECISION MAKING - ED course ED course: This is a 70-year-old woman who presents with a very acute encephalopathy. She has a history of MS and a longstanding Good catheter in placed. A CT of the head without contrast was done and without acute findings. She has a soft blood pressure at 97/59 and significant leukocytosis with a white count of 16,000. As such it may be UTI associated with encephalopathy. Initially I did not order urinalysis as the rest of the history was kind of inconsistent with that but onc e we noted the leukocytosis and low blood pressure seems reasonable to test and treat for UTI. I spoke with Dr. Liz, the medical reception specialist at [facility] ([facility] known [facility] he is known her for a long time and does not think it some sort of conversion or psychiatric type of thing. She is on a fentanyl patch, but I examined her and she only has one on. She gets as needed hydrocodone but her MAR states that she has not gotten any since the beginning of this month and there is none in her urine. Spoke with Dr. Meyer for observation at 5:40 PM. However during these discussions we wondered if a malfunction of her baclofen pump could be the source of her obtundation. I will put out a call to [facility] before she is admitted here. Subsequently I do not I spoke with Dr. Crump, neurosurgeon at [facility]. He did not feel like this was consistent with extra baclofen but might be consistent with baclofen withdrawal. He did recommend that the patient come down to [facility] for further evaluation and treatment and in the interim requested we put in an NG tube and give her 20 mg of baclofen pending transfer. Accepted to [facility] by hospitalist Dr. Fagan at 7:10 PM Departure - Departure Disposition: 02 Transfer Acute Care Hosp Clinical Impression: Altered mental status Qualifiers: Altered mental status type: coma Coma depth: Snyder coma 3-8 Coma timing: in the field (EMT or ambulance) Qualified Code(s): R40.2431 - Snyder coma scale score 3-8, in the field [EMT or ambulance] Urinary tract infection Qualifiers: Urinary tract infection type: catheter-associated UTI Indwelling urinary catheter type: indwelling urethral catheter Encounter type: initial encounter Qualified Code(s): T83.511A - Infection and inflammatory reaction due to indwelling urethral catheter, initial encounter Condition: Fair
[2020-08-23 16:45] LABS: MUDS CUTOFF CONCENTRATIONS CUTOFF CONC BELOW:
[2020-08-23 16:50] LABS: BASOPHILS # (AUTO) 0.1 10^3/uL (0.0-0.1); BASOPHILS % (AUTO) 0.6 %; EOSINOPHILS # (AUTO) 0.4 10^3/uL (0.0-0.7); EOSINOPHILS % (AUTO) 2.5 %; HGB - HEMOGLOBIN 10.6 g/dL (12.0-16.0); LYMPHOCYTES # (AUTO) 2.5 10^3/uL (1.5-3.5); LYMPHOCYTES % (AUTO) 15.7 %; MEAN CORPUSCULAR HEMOGLOBIN 28.2 pg (27.0-31.0); MEAN CORPUSCULAR HGB CONC 29.9 g/dL (32.0-36.0); MEAN CORPUSCULAR VOLUME 94.4 fL (81.0-99.0); MEAN PLATELET VOLUME 9.2 fL (7.9-10.8); MONOCYTES % (AUTO) 6.1 %; NEUTROPHILS # (AUTO) 11.9 10^3/uL (1.5-6.6); NEUTROPHILS % (AUTO) 74.8 %; PLT - PLATELET COUNT 442 10^3/uL (130-450); RED BLOOD COUNT 3.76 10^6/uL (4.20-5.40); RED CELL DISTRIBUTION WIDTH 14.8 % (12.0-15.0)
[2020-08-23 16:57] LABS: AMPHETAMINE SCREEN,URINE NEGATIVE (NEGATIVE); BENZODIAZEPINES SCREEN, URINE NEGATIVE (NEGATIVE); COCAINE SCREEN URINE NEGATIVE (NEGATIVE); METHADONE SCREEN, URINE NEGATIVE (NEGATIVE); METHAMPHETAMINES SCREEN, URINE NEGATIVE (NEGATIVE); OPIATE SCREEN, URINE NEGATIVE (NEGATIVE); OXYCODONE SCREEN, URINE NEGATIVE (NEGATIVE); PROPOXYPHENE SCREEN, URINE NEGATIVE (NEGATIVE); TRICYCLIC ANTIDEPRESSANT,URINE NEGATIVE (NEGATIVE)
[2020-08-23 17:00] LABS: ALBUMIN 3.1 g/dL (3.2-5.5); ALBUMIN/GLOBULIN RATIO 0.8 (1.0-2.2); ALKALINE PHOSPHATASE 95 IU/L (42-121); ALT ALANINE AMINOTRANSFERASE < 10 IU/L (10-60); AST ASPARTATE AMINOTRANSFERASE 11 IU/L (10-42); BILIRUBIN,TOTAL 0.3 mg/dL (0.2-1.0); BUN - BLOOD UREA NITROGEN 20 mg/dL (6-20); CARBON DIOXIDE - CO2 31 mmol/L (21-32); CHLORIDE 93 mmol/L (101-111); CREATININE 0.5 mg/dL (0.4-1.0); GLUCOSE 125 mg/dL (70-100); LIPASE 22 U/L (22-51); MAGNESIUM 2.1 mg/dL (1.7-2.8); TOTAL PROTEIN 7.2 g/dL (6.7-8.2)
--- NOTE | 2020-08-23 17:09 | CT Report ---
PROCEDURE: HEAD WO INDICATIONS: altered TECHNIQUE: Noncontrast 4.5 mm thick angled axial sections acquired from the foramen magnum to the vertex. For r adiation dose reduction, the following was used: automated exposure control, adjustment of mA and/or kV according to patient size. COMPARISON: None. FINDINGS: Image quality: Excellent. CSF spaces: Basal cisterns are patent. No extra-axial fluid collections. Ventricles are normal in size and shape. Brain: No midline shift. No intracranial masses or hemorrhage. Zhang-white matter interface is norm al. Skull and face: Calvarium and visualized facial bones are intact, without suspicious lesions. Sinuses: Visualized sinuses and mastoids are clear. IMPRESSION: Unremarkable intracranial study for age, without a cause of the patient's presenting history identifi ed. Reviewed by: Praneeth Eisenberg MD on 08/23/2020 4:[address] [facility] Approved by: Praneeth Eisenberg MD on 08/23/2020 4:[address] [facility] Station ID: [id number]
[2020-08-23] MEDS ORDERED: SODIUM CHLORIDE 0.9% 1,000 ML IV STA (17:17)
[2020-08-23] MEDS ORDERED: cefTRIAXone 1 GM in SODIUM CHLORIDE 0.9% MINIBAG 100 ML IV STA (17:18)
[2020-08-23 17:26] LABS: BILIRUBIN,URINE NEGATIVE (NEGATIVE); GLUCOSE, URINE (UA) NEGATIVE (NEGATIVE); KETONES,URINE (UA) NEGATIVE (NEGATIVE); LEUKOCYTE ESTERASE, URINE LARGE (NEGATIVE); NITRITE,URINE POSITIVE (NEGATIVE); OCCULT BLOOD,URINE SMALL (NEGATIVE); PROTEIN,URINE NEGATIVE (NEGATIVE); UROBILINOGEN,URINE 0.2 (NORMAL) E.U./dL (NORMAL)
[2020-08-23 17:29] LABS: CLARITY,URINE CLOUDY (CLEAR)
[2020-08-23 17:31] LABS: BACTERIA,URINE Many /HPF (None Seen); SQUAMOUS EPITHELIAL CELL,UR FEW Squamous (<= Few)
[2020-08-23 17:32] LABS: AMORPHOUS SEDIMENT,UR Few /LPF; MUCUS,URINE Few Strands
[2020-08-23] MEDS ORDERED: BACLOFEN 10 MG TABLET PO STA (18:36)
[2020-08-23 19:01] LABS: C. PNEUMONIAE- RESP PCR PANEL NOT DETECTED
[2020-08-23] MEDS ORDERED: IOVERSOL 320 100 ML VIAL IVP ONE (20:04)
[2020-08-23 23:09] VITALS: BP 133/64
== END 2020-08-23 23:36 | disposition short-term general hospital (02) ==
LOC: ED 16:22
DX: T83.511A Infection and inflammatory reaction due to indwelling urethral catheter, initial encounter (principal); R40.2431 Glasgow coma scale score 3-8, in the field [EMT or ambulance]; Z99.3 Dependence on wheelchair; G35 Multiple sclerosis; Z87.891 Personal history of nicotine dependence; Z20.822 Contact with and (suspected) exposure to COVID-19
CPT/HCPCS: 36415; 51702; 70450; 80053; 80306; 81001; 83605; 83690; 83735; 84443; 85025; 87040; 87077; 87086; 87181; 87631; 93005; 96365; 99285; A9270; G0480; 0202U; 80320; 81003

== ENCOUNTER 2020-09-13 09:01 | Outpatient (CLI) | payer MEDICARE, MEDICAID ==
--- NOTE | 2020-09-14 13:25 | Ultrasound Report ---
LIMITED ULTRASOUND OF RIGHT BREAST: 09/13/2020 CLINICAL: Patient returns today to evaluate an asymmetry in the right breast. Comparison is made to exams dated: 07/02/2020 mammogram, 10/02/2014 mammogram, 08/10/2013 mammogram, mammogram, and 01/31/2010 mammogram - [facility]. Color flow ultrasound of the right breast 10-2 o'clock region was performed. Zhang scale images of th e real-time examination were reviewed. There is a benign area of fibroglandular tissue in the right breast at 11 o'clock middle depth. This correlates with mammography findings. Color flow imaging demonstrates that there is no vascularity present. IMPRESSION: BENIGN There is no sonographic evidence of malignancy. The area of fibroglandular tissue which corresponds to mammographic finding in the right breast is be nign. Return to annual mammogram screening schedule is recommended. Findings and recommendations were conveyed to the patient at time of exam. This exam was interpreted at Station ID: [id number]. Electronically Signed By: Tyesha estrada/:09/13/2020 13:10:39 Ultrasound BI-RADS: 2 Benign BI-RADS CATEGORY: (2) - 2 Mammogram [id number] return to screening LATERALITY: (B)
--- NOTE | 2020-09-14 13:25 | Mammography Report ---
UNILATERAL RIGHT DIGITAL DIAGNOSTIC MAMMOGRAM 3D/2D: 09/13/2020 CLINICAL: Patient returns today to evaluate a focal asymmetry in the right breast. Comparison is made to exams dated: 09/13/2020 ultrasound, 07/02/2020 mammogram, 10/02/2014 mammogram, 08/10/2013 mammogram, 02/11/2011 mammogram, and 01/31/2010 mammogram - [facility]. Th ere are scattered fibroglandular elements in right breast. With focal spot compression, and additional views, the possible equal density asymmetry in the right breast posterior depth superior region seen on screening mammography nearly resolves. No other significant masses or calcifications are seen in the breast. IMPRESSION: INCOMPLETE: NEEDS ADDITIONAL IMAGING EVALUATION Near complete resolution of screening mammography abnormality with additional views. Ultrasound evalu ation to confirm resolution is recommended and was performed immediately following this exam. This exam was interpreted at Station ID: [id number]. NOTE: For mammograms, a report in lay terms will be sent to the patient. Approximately 15% of breast malignancies will not be visualized mammographically. In the management of a palpable breast mass, a negative mammogram must not discourage biopsy of a clinically suspicious lesion. Electronically Signed By: Tyesha estrada/:09/13/2020 13:06:26 ACR BI-RADS Category 0: Incomplete 3340F PARENCHYMAL PATTERN: (A) - The breast(s) demonstrate(s) scattered fibroglandular densities. BI-RADS CATEGORY: (0) - 0 Ultrasound [id number] Immediate follow-up LATERALITY: (B)
== END 2020-09-13 09:02 | disposition home or self-care (01) ==
LOC: DI 09:01
PROVIDERS: ATTEND Family Medicine
DX: R92.2 Inconclusive mammogram (principal)

== ENCOUNTER 2020-10-10 10:55 | Outpatient (CLI) | payer MEDICARE, MEDICAID ==
[2020-10-10 11:30] LABS: BASOPHILS # (AUTO) 0.1 10^3/uL (0.0-0.1); BASOPHILS % (AUTO) 0.6 %; BILIRUBIN,URINE NEGATIVE (NEGATIVE); EOSINOPHILS # (AUTO) 0.4 10^3/uL (0.0-0.7); EOSINOPHILS % (AUTO) 2.8 %; GLUCOSE, URINE (UA) NEGATIVE (NEGATIVE); HCT - HEMATOCRIT 40.5 % (37.0-47.0); HGB - HEMOGLOBIN 12.1 g/dL (12.0-16.0); KETONES,URINE (UA) NEGATIVE (NEGATIVE); LEUKOCYTE ESTERASE, URINE MODERATE (NEGATIVE); LYMPHOCYTES # (AUTO) 2.4 10^3/uL (1.5-3.5); LYMPHOCYTES % (AUTO) 17.2 %; MEAN CORPUSCULAR HEMOGLOBIN 27.8 pg (27.0-31.0); MEAN CORPUSCULAR HGB CONC 29.9 g/dL (32.0-36.0); MEAN CORPUSCULAR VOLUME 92.9 fL (81.0-99.0); MEAN PLATELET VOLUME 9.9 fL (7.9-10.8); MONOCYTES % (AUTO) 7.1 %; NEUTROPHILS # (AUTO) 10.2 10^3/uL (1.5-6.6); NEUTROPHILS % (AUTO) 71.8 %; NITRITE,URINE POSITIVE (NEGATIVE); OCCULT BLOOD,URINE MODERATE (NEGATIVE); PH,URINE 7.5 PH (5.0-7.5); PLT - PLATELET COUNT 474 10^3/uL (130-450); PROTEIN,URINE 30 mg/dL (NEGATIVE); RED BLOOD COUNT 4.36 10^6/uL (4.20-5.40); RED CELL DISTRIBUTION WIDTH 13.9 % (12.0-15.0); UROBILINOGEN,URINE 0.2 (NORMAL) E.U./dL (NORMAL); WHITE BLOOD COUNT 14.2 x10^3/uL (4.8-10.8)
[2020-10-10 11:32] LABS: CLARITY,URINE TURBID (CLEAR)
[2020-10-10 11:33] LABS: BACTERIA,URINE Many /HPF (None Seen); SQUAMOUS EPITHELIAL CELL,UR MANY Squamous (<= Few); WBC,URINE >25 /HPF (0-5)
[2020-10-10 11:36] LABS: CREATININE 0.4 mg/dL (0.4-1.0); POTASSIUM 3.3 mmol/L (3.5-5.0)
== END 2020-10-10 23:59 | disposition home or self-care (01) ==
LOC: LAB.R 10:55
DX: G35 Multiple sclerosis (principal); I10 Essential (primary) hypertension; N31.9 Neuromuscular dysfunction of bladder, unspecified; R41.0 Disorientation, unspecified
CPT/HCPCS: 36415; 80048; 81001; 85025; 87086

== ENCOUNTER 2020-10-11 12:00 | Outpatient (CLI) | payer MEDICARE, MEDICAID ==
[2020-10-11 17:24] LABS: BILIRUBIN,URINE NEGATIVE (NEGATIVE); GLUCOSE, URINE (UA) NEGATIVE (NEGATIVE); KETONES,URINE (UA) NEGATIVE (NEGATIVE); LEUKOCYTE ESTERASE, URINE MODERATE (NEGATIVE); NITRITE,URINE POSITIVE (NEGATIVE); OCCULT BLOOD,URINE NEGATIVE (NEGATIVE); PH,URINE 7.5 PH (5.0-7.5); PROTEIN,URINE NEGATIVE (NEGATIVE); UROBILINOGEN,URINE 0.2 (NORMAL) E.U./dL (NORMAL)
[2020-10-11 17:36] LABS: CLARITY,URINE SL. CLOUDY (CLEAR)
[2020-10-11 17:37] LABS: BACTERIA,URINE Few /HPF (None Seen); RBC,URINE 0-5 /HPF (0-5); SQUAMOUS EPITHELIAL CELL,UR FEW Squamous (<= Few)
== END 2020-10-11 23:59 | disposition home or self-care (01) ==
LOC: LAB.R 12:00
DX: R41.0 Disorientation, unspecified (principal)
CPT/HCPCS: 81001; 81003; 87077; 87086; 87181

== ENCOUNTER 2020-10-16 | Outpatient (CLI) | payer MEDICARE, MEDICAID | END 2020-10-16 23:59 | disposition home or self-care (01) | DX: Z74.01 Bed confinement status (principal) | CPT/HCPCS: A0425; A0428 ==

== ENCOUNTER 2020-10-16 12:49 | Emergency (ER) | payer MEDICARE, MEDICAID ==
--- NOTE | 2020-10-16 13:10 | ED Physician Documentation ---
PD HPI FEMALE - Stated complaint Stated Complaint: UTI - Chief complaint Chief Complaint: UTI - History obtained from History obtained from: Patient, EMS - Additional information Additional information: 2 days of burning urination and night sweats last night. She had a UA done at [facility] and resistant organisms were identified and she was sent here for IV placement as they could not get an IV in for a dose of cefepime. 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: Fibroids : Incontinence, Chronic bladder infection HEENT: None Psych: Depression, Anxiety Musculoskeletal: Other Derm: Other - Past Surgical History Past Surgical History: Yes General: Colonoscopy Ortho: Other - Present Medications Home Medications: Ambulatory Orders Medication Instructions Recorded Confirmed Acetaminophen [Tylenol Extra 500 - 1,000 mg PO Q6HR PRN 01/28/18 08/23/20 Strength] Aspirin [Adult Aspirin] 81 mg PO DAILY 01/28/18 08/23/20 Bisacodyl Supp [Dulcolax Supp] 1 supp [place] DAILY PRN 01/28/18 08/23/20 Cholecalciferol (Vitamin D3) 2,000 unit PO DAILY 01/28/18 08/23/20 [Vitamin D] polyethylene glycoL 3350 [Miralax] 17 gm PO DAILY 01/28/18 08/23/20 Baclofen 10 mg PO TID 08/04/18 08/23/20 Calcium Carbonate [Tums (Calcium 1,000 mg PO Q4HR PRN 11/09/18 08/23/20 Carbonate 500mg)] DULoxetine [Cymbalta] 60 mg PO DAILY 11/09/18 08/23/20 Ferrous Gluconate [Iron] 240 mg PO DAILY 11/09/18 08/23/20 Gabapentin 100 mg PO DAILY 11/09/18 08/23/20 Gabapentin [Neurontin] 300 mg PO DAILY 11/09/18 08/23/20 HYDROcod/ACETAM 5/325 [[place] 5/325] 0.5 - 1 tab PO Q4HR PRN 11/09/18 08/23/20 Hydrochlorothiazide 25 mg PO DAILY 11/09/18 08/23/20 Lovastatin 10 mg PO DAILY 11/09/18 08/23/20 Naloxone HCl 0.1 ml SLY PRN PRN 11/09/18 08/23/20 Oxybutynin [Ditropan] 5 mg PO DAILY 11/09/18 08/23/20 fentaNYL [Fentanyl 75mcg patch] 25 mcg TOP .Q3DAYS 11/09/18 08/23/20 Sennosides [Senna Lax] 8.6 mg PO BID 06/07/19 08/23/20 Albuterol Sulf [Ventolin Hfa 2 puffs QPM 08/23/20 08/23/20 Inhaler] - Allergies Allergies/Adverse Reactions: Allergies Allergy/AdvReac Type Severity Reaction Status Date / Time nystatin Allergy Unknown Verified 08/23/20 16:37 Penicillins Allergy Unknown Verified 08/23/20 16:37 - Social History Does the pt smoke?: No Smoking Status: Former smoker Does the pt drink ETOH?: No Does the pt have substance abuse?: No - Immunizations Immunizations are current?: Yes - POLST Patient has POLST: Yes PD ED PE NORMAL - Vitals Vital signs reviewed: Yes - General General: Alert and oriented X 3, No acute distress - Abdomen Abdomen: Soft, Non tender - Derm Derm: Normal color, Warm and dry - Extremities Extremities: No edema. No: No calf tenderness / cord - Psych Psych: Normal mood, Normal affect Results - Vitals Vitals: Vital Signs - 24 hr 10/16/20 13:00 Temperature 36.6 C Heart Rate 78 Respiratory 16 Rate Blood Pressure 115/79 O2 Saturation 93 Oxygen O2 Source Room air PD MEDICAL DECISION MAKING - ED course ED course: 70-year-old woman with catheter associated symptomatic UTI presents from [facility] for IV access for cefepime. Clarified with Dr. Liz that actually a PICC line would be more appropriate since they are planning for about 10 days of antibiotic therapy and I called June Goodman who will come down or have one of her colleagues come down for PICC. Departure - Departure Disposition: 01 Home, Self Care Clinical Impression: Pyelonephritis Condition: Good Record reviewed to determine appropriate education?: Yes Instructions: Pyelonephritis Dc, ED PICC Line Care Comments: Antibiotic orders per Dr. Liz.
[2020-10-16] MEDS ORDERED: CEFEPIME 2 GM in SODIUM CHLORIDE 0.9% MINIBAG 100 ML IV STA (13:24)
--- NOTE | 2020-10-16 15:01 | XRAY Report ---
PROCEDURE: Chest for Line Placement INDICATIONS: s/p picc TECHNIQUE: One view of the chest was acquired. COMPARISON: 07/31/2020 FINDINGS: Surgical changes and devices: PICC line projects to the mid SVC via a right-sided approach. Lungs and pleura: No pleural effusions or pneumothorax. Lungs are clear. Mediastinum: Mediastinal contours appear normal. Heart size is normal. Bones and chest wall: No suspicious bony lesions. Overlying soft tissues appear unremarkable. IMPRESSION: PICC line tip projects over the mid SVC. Reviewed by: Mercedes Brush MD, PhD on 10/16/2020 2:59 PM PDT Approved by: Mercedes Brush MD, PhD on 10/16/2020 2:59 PM PDT Station ID: [id number]
--- NOTE | 2020-10-16 15:03 | ANESTHESIA PROCEDURE NOTE ---
Anesth Central Line Template - Central Line Central Line Preparation: Consent Obtained Central line location: Right Basilic Central line type: PICC Single Lumen Central line catheter tip site resides: Superior vena cava (SVC) Central line aftercare: Secured, Placement confirmed, No pneumothorax, No complications, Bundle checklist complete, Pt tolerated well
--- NOTE | 2020-10-16 15:09 | CONSULTATION NOTE ---
Consultation Report: consulted by Dr. Keyes in ED for a PICC line placement. Procedure reviewed and consent obtained from pt. R-sided PICC placed with ease. Pt tolerated well. NAC. Placement verified with CXR at SVC, secured at 37cm. Sterile technique maintained and sterile dressing applied.
[2020-10-16 16:38] VITALS: BP 139/67
--- OUTSIDE RECORDS SUMMARY | 2020-10-23 22:46 | EXTERNAL MEDICAL SUMMARY RPT | Continuity of Care Document ---
:1950 Demographics Phone Unavailable Preferred Language Unknown Marital Status Unknown Nondenominational Affiliation Unknown Race Unknown Ethnic Group Unknown Author Organization [place] Address [address] [phone] Phone Problems date description facility [id number] Altered mental status [facility] Social History date description facility [id number]
== END 2020-10-16 16:38 | disposition home or self-care (01) ==
LOC: EDUNIT# → ED 12:49
DX: T83.518A Infection and inflammatory reaction due to other urinary catheter, initial encounter (principal); Z87.891 Personal history of nicotine dependence
CPT/HCPCS: 36569; 71045; 96374; 99283; 99285; C1751

== ENCOUNTER 2020-10-16 16:18 | Outpatient (CLI) | payer MEDICARE, MEDICAID ==
--- OUTSIDE RECORDS SUMMARY | 2020-10-23 23:46 | EXTERNAL MEDICAL SUMMARY RPT | Continuity of Care Document ---
:1950 Demographics Phone Unavailable Preferred Language Unknown Marital Status Unknown Gnosticist Affiliation Unknown Race Unknown Ethnic Group Unknown Author Organization [place] Address [address] [phone] Phone Problems date description facility [id number] Altered mental status [facility] Social History date description facility [phone]
== END 2020-10-16 16:19 | disposition critical access hospital (66) ==
LOC: EMS 16:18
PROVIDERS: ATTEND Emergency Medicine
DX: R41.82 Altered mental status, unspecified (principal)
CPT/HCPCS: A0425; A0429

== ENCOUNTER 2020-10-24 18:00 | Outpatient (CLI) | payer MEDICARE, MEDICAID ==
[2020-10-24 18:50] LABS: BASOPHILS # (AUTO) 0.1 10^3/uL (0.0-0.1); BASOPHILS % (AUTO) 0.6 %; EOSINOPHILS # (AUTO) 0.6 10^3/uL (0.0-0.7); HGB - HEMOGLOBIN 11.5 g/dL (12.0-16.0); LYMPHOCYTES # (AUTO) 3.5 10^3/uL (1.5-3.5); LYMPHOCYTES % (AUTO) 22.8 %; MEAN CORPUSCULAR HEMOGLOBIN 27.9 pg (27.0-31.0); MEAN CORPUSCULAR HGB CONC 30.3 g/dL (32.0-36.0); MEAN CORPUSCULAR VOLUME 92.2 fL (81.0-99.0); MEAN PLATELET VOLUME 10.1 fL (7.9-10.8); MONOCYTES # (AUTO) 1.1 10^3/uL (0.0-1.0); MONOCYTES % (AUTO) 6.9 %; NEUTROPHILS # (AUTO) 9.9 10^3/uL (1.5-6.6); NEUTROPHILS % (AUTO) 65.4 %; PLT - PLATELET COUNT 396 10^3/uL (130-450); RED BLOOD COUNT 4.12 10^6/uL (4.20-5.40); RED CELL DISTRIBUTION WIDTH 14.2 % (12.0-15.0); WHITE BLOOD COUNT 15.1 x10^3/uL (4.8-10.8)
[2020-10-24 19:14] LABS: ALBUMIN 3.4 g/dL (3.2-5.5); ALBUMIN/GLOBULIN RATIO 0.8 (1.0-2.2); BILIRUBIN,TOTAL 0.3 mg/dL (0.2-1.0); CREATININE 0.4 mg/dL (0.4-1.0); POTASSIUM 3.7 mmol/L (3.5-5.0); TOTAL PROTEIN 7.9 g/dL (6.7-8.2)
== END 2020-10-24 23:59 | disposition home or self-care (01) ==
LOC: LAB.R 18:00
DX: D64.9 Anemia, unspecified (principal); N39.0 Urinary tract infection, site not specified; D72.829 Elevated white blood cell count, unspecified
CPT/HCPCS: 80053; 85025

== ENCOUNTER 2020-12-12 14:35 | Outpatient (CLI) | payer MEDICARE, MEDICAID ==
[2020-12-12 14:54] LABS: BILIRUBIN,URINE NEGATIVE (NEGATIVE); GLUCOSE, URINE (UA) NEGATIVE (NEGATIVE); KETONES,URINE (UA) NEGATIVE (NEGATIVE); LEUKOCYTE ESTERASE, URINE MODERATE (NEGATIVE); NITRITE,URINE POSITIVE (NEGATIVE); OCCULT BLOOD,URINE MODERATE (NEGATIVE); PH,URINE 7.5 PH (5.0-7.5); PROTEIN,URINE NEGATIVE (NEGATIVE); UROBILINOGEN,URINE 0.2 (NORMAL) E.U./dL (NORMAL)
[2020-12-12 15:11] LABS: CLARITY,URINE SL. CLOUDY (CLEAR)
[2020-12-13 12:13] LABS: BACTERIA,URINE Moderate /HPF (None Seen); SQUAMOUS EPITHELIAL CELL,UR FEW Squamous (<= Few); WBC,URINE >25 /HPF (0-5)
== END 2020-12-12 14:36 | disposition home or self-care (01) ==
LOC: LAB.R 14:35
PROVIDERS: ATTEND Family Medicine
DX: N31.9 Neuromuscular dysfunction of bladder, unspecified (principal); R30.0 Dysuria
CPT/HCPCS: 81001; 81003; 87086

== ENCOUNTER 2020-12-19 05:40 | Outpatient (CLI) | payer MEDICARE, MEDICAID ==
[2020-12-19 11:10] LABS: BILIRUBIN,URINE NEGATIVE (NEGATIVE); CLARITY,URINE HAZY (CLEAR); GLUCOSE, URINE (UA) NEGATIVE (NEGATIVE); KETONES,URINE (UA) NEGATIVE (NEGATIVE); LEUKOCYTE ESTERASE, URINE SMALL (NEGATIVE); NITRITE,URINE POSITIVE (NEGATIVE); OCCULT BLOOD,URINE NEGATIVE (NEGATIVE); PH,URINE 7.5 PH (5.0-7.5); PROTEIN,URINE NEGATIVE (NEGATIVE); UROBILINOGEN,URINE 0.2 (NORMAL) E.U./dL (NORMAL)
[2020-12-19 11:35] LABS: AMORPHOUS SEDIMENT,UR Marked /LPF; BACTERIA,URINE Many /HPF (None Seen); CRYSTALS,URINE >50 Triple Phos /LPF; RBC,URINE 0-5 /HPF (0-5); SQUAMOUS EPITHELIAL CELL,UR FEW Squamous (<= Few); WBC,URINE 0-3 /HPF (0-5)
== END 2020-12-19 23:59 | disposition home or self-care (01) ==
LOC: LAB.R 05:40
DX: N39.0 Urinary tract infection, site not specified (principal)
CPT/HCPCS: 81001; 81003; 87077; 87086; 87181

== ENCOUNTER 2020-12-21 14:06 | Day surgery (SDC) | payer MEDICARE, MEDICAID ==
--- OUTSIDE RECORDS SUMMARY | 2020-12-21 14:12 | EXTERNAL MEDICAL SUMMARY RPT | Continuity of Care Document ---
:1950 Demographics Phone Unavailable Preferred Language Unknown Marital Status Unknown Religion Affiliation Unknown Race Unknown Ethnic Group Unknown Author Organization [place] Address [address] [phone] Phone Allergies Encounters Medications Problems Results
[2020-12-21 16:32] VITALS: BP 136/77
--- NOTE | 2020-12-21 16:37 | XRAY Report ---
PROCEDURE: Chest for Line Placement INDICATIONS: PICC placement verification TECHNIQUE: One view of the chest was acquired. COMPARISON: 12/16/2020 FINDINGS: Surgical changes and devices: PICC line projects over the distal SVC via right-sided approach.. Lungs and pleura: No pleural effusions or pneumothorax. Lungs are clear. Mediastinum: Mediastinal contours appear normal. Heart size is normal. Bones and chest wall: No suspicious bony lesions. Overlying soft tissues appear unremarkable. IMPRESSION: Tip of PICC line projects over the distal SVC Reviewed by: Mercedes Brush MD, PhD on 12/21/2020 4:36 PM PDT Approved by: Mercedes Brush MD, PhD on 12/21/2020 4:36 PM PDT Station ID: [id number]
--- NOTE | 2020-12-21 16:40 | ANESTHESIA PROCEDURE NOTE ---
Anesth Central Line Template - Central Line Central Line Preparation: Consent Obtained, Time out completed, Ultrasound used, Sterile prep and drape Central line location: Right Basilic Central line type: PICC Single Lumen Central line catheter tip site resides: Superior vena cava (SVC) Central line aftercare: Secured, Placement confirmed, No pneumothorax, No complications, Bundle checklist complete, Pt tolerated well
== END 2020-12-21 14:07 | disposition home or self-care (01) ==
LOC: SDS 14:06
PROVIDERS: ATTEND Registered Nurse
DX: N39.0 Urinary tract infection, site not specified (principal)
CPT/HCPCS: 36569; 71045; C1751

== ENCOUNTER 2020-12-21 14:40 | Outpatient (CLI) | payer MEDICARE, MEDICAID | END 2020-12-21 14:41 | disposition critical access hospital (66) | LOC: EMS 14:40 | PROVIDERS: ATTEND Nurse Practitioner | DX: Z45.2 Encounter for adjustment and management of vascular access device (principal) | CPT/HCPCS: A0425; A0428 ==

== ENCOUNTER 2020-12-21 17:05 | Outpatient (CLI) | payer MEDICARE, MEDICAID | END 2020-12-21 17:06 | disposition home or self-care (01) | LOC: EMS 17:05 | PROVIDERS: ATTEND Emergency Medicine | DX: G35 Multiple sclerosis (principal); Z74.01 Bed confinement status | CPT/HCPCS: A0425; A0428 ==

== ENCOUNTER 2020-12-27 10:57 | Outpatient (CLI) | payer MEDICARE, MEDICAID ==
[2020-12-27 11:05] LABS: CREATININE 0.4 mg/dL (0.4-1.0)
== END 2020-12-27 23:59 | disposition home or self-care (01) ==
LOC: LAB.R 10:57
PROVIDERS: ATTEND Family Medicine
DX: D64.9 Anemia, unspecified (principal); E87.6 Hypokalemia; N39.0 Urinary tract infection, site not specified; R30.0 Dysuria; E78.5 Hyperlipidemia, unspecified
CPT/HCPCS: 82378; 82565; 84520

== ENCOUNTER 2020-12-30 12:37 | Outpatient (CLI) | payer MEDICARE, MEDICAID | END 2020-12-30 12:38 | disposition critical access hospital (66) | LOC: EMS 12:37 | DX: R40.4 Transient alteration of awareness (principal) | CPT/HCPCS: A0425; A0429 ==

== ENCOUNTER 2020-12-30 12:45 | Observation (INO) | payer MEDICARE, MEDICAID ==
--- NOTE | 2020-12-30 13:23 | ED Physician Documentation ---
History of Present Illness - Stated complaint Stated Complaint: UNRESPONSIVE - Chief complaint Chief Complaint: Neuro - History obtained from History obtained from: Patient, EMS - History of Present Illness Timing: Today Pain level max: 0 Pain level now: 0 - Additonal information Additional information: Patient is a 70-year-old female with a history of MS that resides at [facility]. She has been living there for the past 3 years. Today she "went unresponsive". She became hypoxic to 87. Oxygen was placed on her, 2 L and immediately improved to 93 to 94%. The staff at [facility] states that this is not uncommon for her and that this happens every few weeks to every few months. She has had no fevers. She is currently being treated with ertapenem and ciprofloxacin for a catheter associated UTI. Has a chronic indwelling Good catheter. She is wheelchair-bound. Patient is currently at her normal baseline. She denies any pain or injury. No chest pain. No shortness of breath. Nothing makes it better or worse Review of Systems Ten Systems: 10 systems reviewed and negative Constitutional: denies: Fever, Chills Ears: denies: Ear pain Nose: denies: Rhinorrhea / runny nose, Congestion Throat: denies: Sore throat Cardiac: denies: Palpitations Respiratory: denies: Dyspnea, Cough, Wheezing GI: denies: Abdominal Pain, Nausea, Vomiting, Diarrhea Skin: denies: Rash Musculoskeletal: denies: Neck pain, Back pain Neurologic: denies: Headache PD PAST MEDICAL HISTORY - Past Medical History Cardiovascular: High cholesterol Respiratory: None Neuro: Peripheral neuropathy, Multiple sclerosis Endocrine/Autoimmune: None GI: Hemorrhoids, 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: Fibroids : Incontinence, Chronic bladder infection HEENT: None Psych: Depression, Anxiety Musculoskeletal: Other Derm: Other - Past Surgical History Past Surgical History: Yes General: Colonoscopy Ortho: Other - Present Medications Home Medications: Ambulatory Orders Medication Instructions Recorded Confirmed Acetaminophen [Tylenol Extra 500 - 1,000 mg PO Q6HR PRN 01/28/18 12/30/20 Strength] Aspirin [Adult Aspirin] 81 mg PO DAILY 01/28/18 12/30/20 Bisacodyl Supp [Dulcolax Supp] 1 supp HI DAILY PRN 01/28/18 12/30/20 Cholecalciferol (Vitamin D3) 2,000 unit PO DAILY 01/28/18 12/30/20 [Vitamin D] polyethylene glycoL 3350 [Miralax] 17 gm PO DAILY 01/28/18 12/30/20 Baclofen 10 mg PO TID 08/04/18 12/30/20 Calcium Carbonate [Tums (Calcium 1,000 mg PO Q4HR PRN 11/09/18 12/30/20 Carbonate 500mg)] DULoxetine [Cymbalta] 60 mg PO DAILY 11/09/18 12/30/20 Ferrous Gluconate [Iron] 240 mg PO DAILY 11/09/18 12/30/20 Gabapentin 100 mg PO DAILY 11/09/18 12/30/20 Gabapentin [Neurontin] 300 mg PO DAILY 11/09/18 12/30/20 HYDROcod/ACETAM 5/325 [[place] 5/325] 0.5 - 1 tab PO Q4HR PRN 11/09/18 12/30/20 Lovastatin 10 mg PO QPM 11/09/18 12/30/20 Naloxone HCl 0.1 ml SLY PRN PRN 11/09/18 12/30/20 fentaNYL [Fentanyl 75mcg patch] 25 mcg TOP .Q3DAYS 11/09/18 12/30/20 Sennosides [Senna Lax] 8.6 mg PO BID 06/07/19 12/30/20 Albuterol Sulf [Ventolin Hfa 2 puffs INH Q4H PRN 08/23/20 12/30/20 Inhaler] Fluticasone/Salmeterol [Advair Hfa 1 puffs IH BID 12/30/20 12/30/20 115-21 Mcg Inhaler] Oxybutynin Chloride [Ditropan Xl] 5 mg PO DAILY 12/30/20 12/30/20 Potassium Chloride [Micro-K] 30 meq PO DAILY 12/30/20 12/30/20 hydroCHLOROthiazide 50 mg PO DAILY 12/30/20 12/30/20 [Hydrochlorothiazide] - Allergies Allergies/Adverse Reactions: Allergies Allergy/AdvReac Type Severity Reaction Status Date / Time nystatin Allergy Unknown Verified 12/30/20 12:59 Penicillins Allergy Unknown Verified 12/30/20 12:59 - Social History Does the pt smoke?: No Smoking Status: Never smoker Does the pt drink ETOH?: No Does the pt have substance abuse?: No - Immunizations Immunizations are current?: Yes - POLST Patient has POLST: Yes PD ED PE NORMAL - Vitals Vital signs reviewed: Yes - General General: Alert and oriented X 3, No acute distress, Well developed/nourished - HEENT HEENT: Atraumatic, PERRL, EOMI, Moist mucous membranes - Neck Neck: Supple, no meningeal sign - Cardiac Cardiac: RRR, Strong equal pulses - Respiratory Respiratory: No respiratory distress, Clear bilaterally - Abdomen Abdomen: Soft, Non tender, Non distended - Back Back: No CVA TTP, No spinal TTP - Derm Derm: Warm and dry - Extremities Extremities: No calf tenderness / cord - Neuro Neuro: Alert and oriented X 3 - Psych Psych: Normal mood, Normal affect Results - Vitals Vitals: Vital Signs - 24 hr 12/30/20 12/30/20 12/30/20 12:53 13:00 13:29 Temperature 37.3 C Heart Rate 96 89 94 Respiratory 22 19 21 Rate Blood Pressure 142/81 H 140/82 H 167/107 H O2 Saturation 95 93 94 12/30/20 12/30/20 14:00 14:30 Temperature Heart Rate 100 96 Respiratory 26 H 20 Rate Blood Pressure 182/103 H 200/115 H O2 Saturation 95 98 Oxygen O2 Source Nasal cannula - EKG (time done) 1300 Rate: Rate (enter#) (91) Rhythm: NSR [place]: Normal Intervals: Normal HI QRS: Normal Ischemia: Normal ST segments - Labs Labs: Laboratory Tests 12/30/20 12/30/20 12/30/20 12:23 12:23 12:23 WBC 20.5 H RBC 4.47 Hgb 12.1 Hct 37.9 MCV 84.8 MCH 27.1 MCHC 31.9 L RDW 14.4 Plt Count 453 H MPV 9.4 Neut # (Auto) 16.8 H Lymph # (Auto) 2.1 Sac # (Auto) 1.4 H Eos # (Auto) 0.1 Baso # (Auto) 0.1 Absolute Nucleated RBC 0.00 Band Neuts % (Manual) Not Reportable Abnorm Lymph % (Manual) Not Reportable Nucleated RBC % 0.0 Neutrophils # (Manual) Not Reportable Lymphocytes # (Manual) Not Reportable Monocytes # (Manual) Not Reportable Eosinophils # (Manual) Not Reportable Basophils # (Manual) Not Reportable Differential Comment Y WBC Morphology 1+ HYPERSEG NEUT Platelet Estimate INCREASED (>450,000) Platelet Morphology NORMAL APPEARANCE RBC Morph Micro Appear 1+ ANISOCYTOSIS Sodium 128 L Potassium 3.7 Chloride 85 L Carbon Dioxide 31 Anion Gap 12.0 BUN 14 Creatinine 0.3 L Estimated GFR (MDRD) 219 Glucose 107 H Lactic Acid Calcium 9.1 Total Bilirubin 0.5 AST 13 ALT 10 Alkaline Phosphatase 113 Troponin I High Sens 12.9 Total Protein 8.2 Albumin 3.5 Globulin 4.7 H Albumin/Globulin Ratio 0.7 L Lipase 22 Urine Color Urine Clarity Urine pH Ur Specific [place] Urine Protein Urine Glucose (UA) Urine Ketones Urine Occult Blood Urine Nitrite Urine Bilirubin Urine Urobilinogen Ur Leukocyte Esterase Urine RBC Urine WBC Ur Squamous Epith Cells Urine Bacteria Ur Microscopic Review Urine Culture Comments Nasal Adenovirus (PCR) Nasal B. parapertussis DNA (PCR) Nasal Coronavir 229E PCR Nasal Coronavir HKU1 PCR Nasal Coronavir NL63 PCR Nasal Coronavir OC43 PCR Nasal Enterovir/Rhinovir PCR Nasal Influenza B PCR Nasal Influenza A PCR Nasal Parainfluen 1 PCR Nasal Parainfluen 2 PCR Nasal Parainfluen 3 PCR Nasal Parainfluen 4 PCR Nasal RSV (PCR) Nasal B.pertussis DNA PCR Nasal C.pneumoniae (PCR) Sly Human Metapneumo PCR Nasal M.pneumoniae (PCR) Nasal SARS-CoV-2 (PCR) 12/30/20 12/30/20 12/30/20 13:58 14:03 14:28 WBC RBC Hgb Hct MCV MCH MCHC RDW Plt Count MPV Neut # (Auto) Lymph # (Auto) Sac # (Auto) Eos # (Auto) Baso # (Auto) Absolute Nucleated RBC Band Neuts % (Manual) Abnorm Lymph % (Manual) Nucleated RBC % Neutrophils # (Manual) Lymphocytes # (Manual) Monocytes # (Manual) Eosinophils # (Manual) Basophils # (Manual) Differential Comment WBC Morphology Platelet Estimate Platelet Morphology RBC Morph Micro Appear Sodium Potassium Chloride Carbon Dioxide Anion Gap BUN Creatinine Estimated GFR (MDRD) Glucose Lactic Acid 0.8 Calcium Total Bilirubin AST ALT Alkaline Phosphatase Troponin I High Sens Total Protein Albumin Globulin Albumin/Globulin Ratio Lipase Urine Color YELLOW Urine Clarity CLEAR Urine pH 7.0 Ur Specific [place] 1.025 Urine Protein 30 H Urine Glucose (UA) NEGATIVE Urine Ketones NEGATIVE Urine Occult Blood MODERATE H Urine Nitrite NEGATIVE Urine Bilirubin NEGATIVE Urine Urobilinogen 0.2 (NORMAL) Ur Leukocyte Esterase NEGATIVE Urine RBC 11-25 H Urine WBC 4-5 Ur Squamous Epith Cells MOD Squamous H Urine Bacteria Few Ur Microscopic Review INDICATED Urine Culture Comments NOT INDICATED Nasal Adenovirus (PCR) NOT DETECTED Nasal B. parapertussis DNA (PCR) NOT DETECTED Nasal Coronavir 229E PCR NOT DETECTED Nasal Coronavir HKU1 PCR NOT DETECTED Nasal Coronavir NL63 PCR NOT DETECTED Nasal Coronavir OC43 PCR NOT DETECTED Nasal Enterovir/Rhinovir PCR NOT DETECTED Nasal Influenza B PCR NOT DETECTED Nasal Influenza A PCR NOT DETECTED Nasal Parainfluen 1 PCR NOT DETECTED Nasal Parainfluen 2 PCR NOT DETECTED Nasal Parainfluen 3 PCR NOT DETECTED Nasal Parainfluen 4 PCR NOT DETECTED Nasal RSV (PCR) NOT DETECTED Nasal B.pertussis DNA PCR NOT DETECTED Nasal C.pneumoniae (PCR) NOT DETECTED Sly Human Metapneumo PCR NOT DETECTED Nasal M.pneumoniae (PCR) NOT DETECTED Nasal SARS-CoV-2 (PCR) NOT DETECTED - Rads (name of study) CT abd/pelvis Radiology: Prelim report reviewed, EMP read contemporaneously, See rad report (Negative for hydronephrosis. A nonobstructing 7 mm stone is seen at the inferior pole of the right kidney. There is a moderate amount of stool seen within the colon. Please correlate with clinical constipation. Anorectal wall thickening is seen, as previously demonstrated. ) cxr Radiology: Prelim report reviewed, EMP read contemporaneously, See rad report (Portable chest within normal limits for age. Stable right-sided PICC line ) PD MEDICAL DECISION MAKING - ED course Complexity details: reviewed results, re-evaluated patient, considered differential, d/w patient, d/w rn lactation consultant ED course: Patient with what sounds like a syncopal event today at her long-term. No acute findings on telemetry, EKG. No acute findings on chest x-ray or CT abdomen and pelvis. Has a chronic UTI and is on ertapenem and ciprofloxacin for this. Likely does not need both antibiotics and likely can be continued on ertapenem only. Cipro may prolong the QT. We will observe her for cardiac arrhythmias and further care. Discussed the case with Dr. Gaston, hospitalist who accepts This document was made in part using voice recognition software. While efforts are made to proofread this document, sound alike and grammatical errors may occur. Patient is also hyponatremic, baseline sodium is around 134. Given IV fluids. Departure - Departure Disposition: ED Place in Observation Clinical Impression: Hyponatremia Syncope Qualifiers: Syncope type: unspecified Qualified Code(s): R55 - Syncope and collapse Leukocytosis Qualifiers: Leukocytosis type: unspecified Qualified Code(s): D72.829 - Elevated white blood cell count, unspecified Condition: Stable Discharge Date/Time: 12/30/20 15:34
[2020-12-30 13:31] LABS: BASOPHILS # (AUTO) 0.1 10^3/uL (0.0-0.1); BASOPHILS % (AUTO) 0.3 %; EOSINOPHILS # (AUTO) 0.1 10^3/uL (0.0-0.7); EOSINOPHILS % (AUTO) 0.2 %; HCT - HEMATOCRIT 37.9 % (37.0-47.0); HGB - HEMOGLOBIN 12.1 g/dL (12.0-16.0); LYMPHOCYTES # (AUTO) 2.1 10^3/uL (1.5-3.5); LYMPHOCYTES % (AUTO) 10.4 %; MEAN CORPUSCULAR HEMOGLOBIN 27.1 pg (27.0-31.0); MEAN CORPUSCULAR HGB CONC 31.9 g/dL (32.0-36.0); MEAN CORPUSCULAR VOLUME 84.8 fL (81.0-99.0); MEAN PLATELET VOLUME 9.4 fL (7.9-10.8); MONOCYTES # (AUTO) 1.4 10^3/uL (0.0-1.0); MONOCYTES % (AUTO) 6.7 %; NEUTROPHILS # (AUTO) 16.8 10^3/uL (1.5-6.6); NEUTROPHILS % (AUTO) 81.9 %; PLT - PLATELET COUNT 453 10^3/uL (130-450); RED BLOOD COUNT 4.47 10^6/uL (4.20-5.40); RED CELL DISTRIBUTION WIDTH 14.4 % (12.0-15.0); WHITE BLOOD COUNT 20.5 x10^3/uL (4.8-10.8)
--- OUTSIDE RECORDS SUMMARY | 2020-12-30 13:33 | EXTERNAL MEDICAL SUMMARY RPT | Continuity of Care Document ---
:1950 Demographics Phone Unavailable Preferred Language Unknown Marital Status Unknown Religion Affiliation Unknown Race Unknown Ethnic Group Unknown Author Organization [place] Address [address] [phone] Phone Allergies Encounters Medications Problems Results
--- NOTE | 2020-12-30 13:35 | XRAY Report ---
PROCEDURE: Chest 1 View X-Ray INDICATIONS: Chest Pain TECHNIQUE: One view of the chest was acquired. COMPARISON: 12/21/2020, 10/16/2020 FINDINGS: Surgical changes and devices: There is a stable right-sided PICC line seen, with the tip near the cav oatrial junction. Lungs and pleura: On the supine study, no large pneumothorax or large pleural effusions can be seen. No focal infiltrates are detected. Mediastinum: Mediastinal contours appear normal. Heart size is normal. Bones and chest wall: No suspicious bony lesions. Age-appropriate degenerative changes are seen. M ild dextroconvex scoliotic curvature is seen. Overlying soft tissues appear unremarkable. IMPRESSION: Portable chest within normal limits for age. Stable right-sided PICC line Reviewed by: Praneeth Eisenberg MD on 12/30/2020 12:34 PM AKDT Approved by: Praneeth Eisenberg MD on 12/30/2020 12:34 PM JUSTUS Station ID: [id number]
[2020-12-30 13:42] LABS: ALBUMIN 3.5 g/dL (3.2-5.5); ALBUMIN/GLOBULIN RATIO 0.7 (1.0-2.2); BILIRUBIN,TOTAL 0.5 mg/dL (0.2-1.0); CALCIUM 9.1 mg/dL (8.5-10.3); CREATININE 0.3 mg/dL (0.4-1.0); POTASSIUM 3.7 mmol/L (3.5-5.0); TOTAL PROTEIN 8.2 g/dL (6.7-8.2)
[2020-12-30] MEDS ORDERED: SODIUM CHLORIDE 0.9% 1,000 ML IV STA ×2 (13:44)
[2020-12-30 14:03] LABS: BILIRUBIN,URINE NEGATIVE (NEGATIVE); GLUCOSE, URINE (UA) NEGATIVE (NEGATIVE); KETONES,URINE (UA) NEGATIVE (NEGATIVE); LEUKOCYTE ESTERASE, URINE NEGATIVE (NEGATIVE); NITRITE,URINE NEGATIVE (NEGATIVE); OCCULT BLOOD,URINE MODERATE (NEGATIVE); PROTEIN,URINE 30 mg/dL (NEGATIVE); UROBILINOGEN,URINE 0.2 (NORMAL) E.U./dL (NORMAL)
[2020-12-30 14:10] LABS: CLARITY,URINE CLEAR (CLEAR)
[2020-12-30 14:13] LABS: SQUAMOUS EPITHELIAL CELL,UR MOD Squamous (<= Few)
[2020-12-30 14:14] LABS: BACTERIA,URINE Few /HPF (None Seen)
[2020-12-30 14:30] LABS: DIFFERENTIAL COMMENT Y; PLATELET ESTIMATE, MANUAL INCREASED (>450,000) (NORMAL); PLATELET MORPHOLOGY NORMAL APPEARANCE (NORMAL); RBC MORPHOLOGY (MULTIPLE) 1+ ANISOCYTOSIS (NORMAL); WBC MORPHOLOGY (MULTIPLE) 1+ HYPERSEG NEUT (NORMAL)
[2020-12-30] MEDS ORDERED: IOVERSOL 320 100 ML VIAL IVP ONE ×2 (14:46→15:19)
[2020-12-30] MEDS ORDERED: ONDANSETRON 4 MG/2 ML VIAL IVP PRN (14:56)
[2020-12-30] MEDS ORDERED: SODIUM CHLORIDE FLUSH 0.9% 10 ML SYRINGE IVP PRN (14:56)
[2020-12-30] MEDS ORDERED: ACETAMINOPHEN 325 MG TABLET PO PRN (14:56)
--- NOTE | 2020-12-30 15:00 | HISTORY & PHYSICAL EXAMINATION ---
Chief Complaint - Chief Complaint Chief Complaint: Unresponsive episode. History of Present Illness - Admitted From Admitted From:: [facility] - History Obtained From Records Reviewed: Yes History obtained from: Patient, ER Physician, EMR - History of Present Illness HPI Comment/Other: This is a 70-year-old female with a past medical history significant for multiple sclerosis, chronic pain, recurrent urinary tract infection, chronic indwelling Good catheter who presents today after having an unresponsive episode at [facility]. History from the patient is limited due to her being a poor historian and then becoming confused during our conversation. The patient reportedly became unresponsive today shortly after receiving her IV antibiotics. She has been on ciprofloxacin and ertapenem for a urinary tract infection. Her urine cultures have grown ESBL E. coli and Proteus. When staff checked on her, they noted that she had a blank stare but when I asked if she went to go to the hospital she responded yes. Upon EMS arrival, she appeared to be diaphoretic and looked more ill. In the emergency department, she was alert and oriented per the ER provider. She was complaining of abdominal pain and a CT of the abdomen pelvis was obtained which showed a nonobstructing left kidney stone and stool within the rectum but otherwise it was unremarkable. Her white count was noted to be elevated at 20,000. Her lactic acid was normal and her renal function is at baseline. Her sodium was decreased at 128. She was given normal saline. Her EKG revealed normal sinus rhythm and her troponin was normal. The concern was for syncope and so medicine was consulted for admission. Upon my initial evaluation, the patient was able to converse with me. She told me that she denies any chest pain, dyspnea, dizziness, lightheadedness. She reports no palpitations. She knew she is at the hospital but cannot recall exactly why. She did report mild abdominal pain but no nausea or vomiting. I am unable to confirm the patient's goals of care due to her confusion at this time. She does have a POLST form which states that she is a DNR. Her son, Adan, is an emergency contact and I have called him to confirm the patient's co de status but there was no answer. At this time, she will be made a DNR and given her POLST form which states this. 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 Living arrangement: shelter Social History Notes: She resides at [facility] and has been there for 3 years. She told me that she has a remote smoking history. Denies alcohol use. - Substance History Use: Uses substance without health or social issues: NONE - POLST Patient has POLST: Yes POLST Status: DNR Meds/Allgy - Home Medications Home Medications: Ambulatory Orders Medication Instructions Recorded Confirmed Acetaminophen [Tylenol Extra 500 - 1,000 mg PO Q6HR PRN 01/28/18 12/30/20 Strength] Aspirin [Adult Aspirin] 81 mg PO DAILY 01/28/18 12/30/20 Bisacodyl Supp [Dulcolax Supp] 1 supp IN DAILY PRN 01/28/18 12/30/20 Cholecalciferol (Vitamin D3) 2,000 unit PO DAILY 01/28/18 12/30/20 [Vitamin D] polyethylene glycoL 3350 [Miralax] 17 gm PO DAILY 01/28/18 12/30/20 Baclofen 10 mg PO TID 08/04/18 12/30/20 Calcium Carbonate [Tums (Calcium 1,000 mg PO Q4HR PRN 11/09/18 12/30/20 Carbonate 500mg)] DULoxetine [Cymbalta] 60 mg PO DAILY 11/09/18 12/30/20 Ferrous Gluconate [Iron] 240 mg PO DAILY 11/09/18 12/30/20 Gabapentin 100 mg PO DAILY 11/09/18 12/30/20 Gabapentin [Neurontin] 300 mg PO DAILY 11/09/18 12/30/20 HYDROcod/ACETAM 5/325 [Garner 5/325] 0.5 - 1 tab PO Q4HR PRN 11/09/18 12/30/20 Lovastatin 10 mg PO QPM 11/09/18 12/30/20 Naloxone HCl 0.1 ml SLY PRN PRN 11/09/18 12/30/20 fentaNYL [Fentanyl 75mcg patch] 25 mcg TOP .Q3DAYS 11/09/18 12/30/20 Sennosides [Senna Lax] 8.6 mg PO BID 06/07/19 12/30/20 Albuterol Sulf [Ventolin Hfa 2 puffs INH Q4H PRN 08/23/20 12/30/20 Inhaler] Fluticasone/Salmeterol [Advair Hfa 1 puffs IH BID 12/30/20 12/30/20 115-21 Mcg Inhaler] Oxybutynin Chloride [Ditropan Xl] 5 mg PO DAILY 12/30/20 12/30/20 Potassium Chloride [Micro-K] 30 meq PO DAILY 12/30/20 12/30/20 hydroCHLOROthiazide 50 mg PO DAILY 12/30/20 12/30/20 [Hydrochlorothiazide] - Allergies Allergies/Adverse Reactions: Allergies Allergy/AdvReac Type Severity Reaction Status Date / Time nystatin Allergy Unknown Verified 12/30/20 12:59 Penicillins Allergy Unknown Verified 12/30/20 12:59 Review of Systems - Cardiovascular Cariovascular: denies: Chest pain, Lightheadedness, Exertional dyspnea, Decr. exercise tolerance - Gastrointestinal Gastrointestinal: reports: Abdominal pain. denies: Nausea, Vomiting - Neurological Neurological: denies: Dizziness - All Other Systems All Other Systems: reports: Other (Review of systems is limited due to her confusion.) Prior Level of Functionality: She is wheelchair-bound at baseline. She resides at [facility]. Exam - Vital Signs Reviewed Vital Signs: Yes Vital Signs: Vital Signs x48h Temp Pulse Resp BP Pulse Ox 12/30/20 14:30 96 20 200/115 H 98 12/30/20 14:00 100 26 H 182/103 H 95 12/30/20 13:29 94 21 167/107 H 94 12/30/20 13:00 89 19 140/82 H 93 12/30/20 12:53 37.3 C 96 22 142/81 H 95 - Physical Exam General Appearance: positive: No acute distress, Other (She was alert initially upon my conversation then became less responsive but still awake. She is not responding to my questions look like she previously was.) Eyes Bilateral: positive: Other (Pupils are dilated but reactive to light. Conjunctive is normal. She does have a slight upward gaze.) ENT: positive: Dry mucous membranes. negative: No signs of dehydration Neck: positive: Nml inspection Respiratory: positive: No respiratory distress. negative: Wheezes, Rales Cardiovascular: positive: Regular rate & rhythm, No murmur. negative: Tachycardia Abdomen: positive: No distention, Tenderness (Mild diffuse tenderness.), Other (Pump palpated in the left lower quadrant.). negative: Guarding, Rebound Skin: positive: Warm, Dry Extremities: positive: No pedal edema Neurologic/Psychiatric: positive: Disoriented to time, Other (She does have chronic lower extremity weakness due to multiple sclerosis. She is able to move her upper extremities initially but neuro exam is now limited due to her confusion.). negative: Disoriented to person, Disoriented to place Conclusion/Plan - Problem List (1) Unresponsive episode Conclusion/Plan: She did have an unresponsive episode at her SNF today. On my evaluation, she does appear confused and reportedly she is little forgetful at baseline but this is not her usual self. I am concerned for potential seizure causing this and she may be post ictal. She has no obvious focal deficits on exam but neuro exam is limited due to her mentation. I am going to order a stat CT of the head without contrast. We will also administer one-time dose of lorazepam IV as I am concerned for possible focal seizure. We will place her on seizure precautions. We will check an ammonia, TSH. Given she is at a skilled nurse facility, low suspicion for alcohol or substance use. (2) Syncope Conclusion/Plan: I am not sure that she likely had a syncopal episode. I suspect what was believed to be syncope is likely the unresponsive episode she had above and may be related to seizure. Her EKG reveals a sinus rhythm without evidence of ischemia. Her troponin is normal. At this time, we will hydrate her given the hyponatremia. We will check orthostatics even though she is wheelchair-bound by attempting to at least obtain a lying and seated blood pressure. Will monitor on telemetry. Obtain echocardiogram in the morning. Trend her troponin. Qualifiers: Syncope type: unspecified Qualified Code(s): R55 - Syncope and collapse (3) Urinary tract infection Conclusion/Plan: She is being treated on outpatient basis for urinary tract infection. She has been on ciprofloxacin and ertapenem. Reviewing the most recent urine culture which grew ESBL E. coli and Proteus, she should likely just be on ertapenem which covers both bacteria. We will continue her on meropenem during this hospitalization and she can continue ertapenem once discharged. Qualifiers: Urinary tract infection type: catheter-associated UTI Indwelling urinary catheter type: indwelling urethral catheter Encounter type: initial encounter Qualified Code(s): T83.511A - Infection and inflammatory reaction due to indwelling urethral catheter, initial encounter; N39.0 - Urinary tract infection, site not specified (4) Hyponatremia Conclusion/Plan: This is likely related to the thiazide. Her sodium is decreased at 128. We will hold her home thiazide and start her on normal saline at 100 mL an hour. We will continue to monitor her sodium. (5) Leukocytosis Conclusion/Plan: Her white count is elevated today at 20,000. This has been chronically elevated over the past few months but this is the highest it has been. This may be due to underlying infection but could possibly be reactive given the concern for possible seizure. A CT of the abdomen pelvis was obtained which showed no obvious evidence of infection. She did have a nonobstructing stone and she does remain on antibiotics for suspected catheter associated UTI. Blood cultures were obtained in the emergency department and we will follow these up. Qualifiers: Leukocytosis type: unspecified Qualified Code(s): D72.829 - Elevated white blood cell count, unspecified (6) Multiple sclerosis Conclusion/Plan: This unfortunately has caused her to be wheelchair-bound at baseline. We will continue her home baclofen and gabapentin. - Lab Results Lab results reviewed: Yes Fish Bones: 12/30/20 12:23 12/30/20 12:23 - Diagnostic Imaging Results Diagnostic Imaging Results: positive: Final report reviewed - EKG Results EKG Interpreted Independently: Yes Core Measures - Anticipated LOS I expect patient to be DC'd or transferred within 96 hours.: Yes - Issues Hospital Issues and Management Plan: 70-year-old female with a history of multiple sclerosis who presents today after having an unresponsive episode. She is being treated for urinary tract infection on outpatient basis and is found to be hyponatremic today. The concern is for possible seizure or syncope. Will place in observation for CT of the head, IV fluids, echo and to monitor on telemetry. - DVT/VTE - Prophylaxis VTE/DVT Device ordered at admit?: Yes
--- OUTSIDE RECORDS SUMMARY | 2020-12-30 15:23 | EXTERNAL MEDICAL SUMMARY RPT | Continuity of Care Document ---
:1950 Demographics Phone Unavailable Preferred Language Unknown Marital Status Unknown Evangelical Affiliation Unknown Race Unknown Ethnic Group Unknown Author Organization [place] Address [address] [phone] Phone Allergies Encounters Medications Problems Results
[2020-12-30 15:28] LABS: B. PARAPERTUSSIS- RESP PCR PAN NOT DETECTED; B. PERTUSSIS- RESP PCR PANEL NOT DETECTED; C. PNEUMONIAE- RESP PCR PANEL NOT DETECTED; CORONAVIRUS 229E-RESP PCR NOT DETECTED; CORONAVIRUS HKU1-RESP PCR NOT DETECTED; CORONAVIRUS NL63-RESP PCR NOT DETECTED; CORONAVIRUS OC43-RESP PCR NOT DETECTED; HUMAN METAPNEUMOVIRUS NOT DETECTED; INFLUENZA A- RESP PCR PANEL NOT DETECTED; INFLUENZA B - RESP PCR PANEL NOT DETECTED; M. PNEUMONIAE- RESP PCR PANEL NOT DETECTED; PARAINFLUENZA VIRUS 1 NOT DETECTED; PARAINFLUENZA VIRUS 2 NOT DETECTED; PARAINFLUENZA VIRUS 3 NOT DETECTED; PARAINFLUENZA VIRUS 4 NOT DETECTED; RHINOVIRUS/ENTEROVIRUS NOT DETECTED; RSV- RESP PCR PANEL NOT DETECTED; SARS-CoV-2 -RESP PCR PANEL NOT DETECTED
--- NOTE | 2020-12-30 15:37 | CT Report ---
PROCEDURE: Abdomen/Pelvis W INDICATIONS: leukocytosis, chronic christensen, possible pyelo? CONTRAST: IV CONTRAST: Optiray 320 ml: 100 PO CONTRAST: *NO PO CONTRAST TECHNIQUE: After the administration of IV contrast, 5 mm thick sections acquired from the diaphragms to the symp hysis. 5 mm thick coronal and sagittal reformats were acquired. For radiation dose reduction, the f ollowing was used: automated exposure control, adjustment of mA and/or kV according to patient size. COMPARISON: 03/08/2018. Correlation is made with the accompanying chest radiograph, 12/30/2020. FINDINGS: Image quality: Excellent. ABDOMEN: Lung bases: Lung bases are clear. Heart size is normal. A small hiatal hernia is incidentally note d. Solid organs: Liver and spleen are normal in size and enhancement. Gallbladder wall does not appear thickened. Biliary system is non dilated. Pancreas enhances normally. No adrenal nodules. Kidneys demonstrate normal size and enhancement, without hydronephrosis. There is a nonobstructing st one seen at the inferior pole of the right kidney, measuring 7 mm. Peritoneum and bowel: Generalized anorectal wall thickening is seen. Bowel loops otherwise demonstrat e normal wall thickness and caliber. No free fluid or air. There is a moderate amount of stool seen within the colon. Nodes and vessels: No retroperitoneal or mesenteric adenopathy by size criteria. Aorta and inferior vena cava are normal in size. Atherosclerotic calcification is seen. Miscellaneous: No ventral hernias. PELVIS: Genitourinary: A Christensen catheter seen, which decompresses the bladder. Uterine fibroids can be seen, including calcified uterine fibroids. Miscellaneous: No inguinal hernias or adenopathy. A left-sided pain pump catheter is seen. Bones: No suspicious bony lesions. No vertebral body compression fractures. Moderate levoconvex michelle mbar scoliosis is seen. IMPRESSION: Negative for hydronephrosis. A nonobstructing 7 mm stone is seen at the inferior pole of the right kidney. There is a moderate amount of stool seen within the colon. Please correlate with clinical constipatio n. Anorectal wall thickening is seen, as previously demonstrated. Incidental note is made of: Small hiatal hernia Left-sided pain pump catheter Moderate levoconvex scoliosis Uterine fibroids, including calcified uterine fibroids Christensen catheter Reviewed by: Praneeth Eisenberg MD on 12/30/2020 2:36 PM AKDT Approved by: Praneeth Eisenberg MD on 12/30/2020 2:36 PM JUSTUS Station ID: [id number]
[2020-12-30] MEDS ORDERED: polyethylene glycoL 3350 17 GM PACKET PO PRN (15:57)
[2020-12-30] MEDS ORDERED: SENNA 8.6 MG TABLET PO PRN (15:58)
[2020-12-30] MEDS ORDERED: LORazepam 2 MG/ML VIAL IVP STA (16:22)
--- NOTE | 2020-12-30 17:02 | CT Report ---
PROCEDURE: HEAD WO INDICATIONS: ALOC. Seizure? TECHNIQUE: Noncontrast 4.5 mm thick angled axial sections acquired from the foramen magnum to the vertex. For r adiation dose reduction, the following was used: automated exposure control, adjustment of mA and/or kV according to patient size. COMPARISON: 08/23/2020. Correlation is made with the accompanying abdomen pelvis CT and chest radiogra ph, 12/30/2020. FINDINGS: Image quality: Study is limited by the prior administration of contrast, with hyperdensity seen with in the venous system and along the tentorium. CSF spaces: Basal cisterns are patent. No extra-axial fluid collections. Ventricles are normal in size and shape. Brain: No midline shift. No intracranial masses or hemorrhage. Zhang-white matter interface is norm al. Age-appropriate brain parenchymal volume loss and chronic small vessel ischemic change can be se en. Skull and face: Calvarium and visualized facial bones are intact, without suspicious lesions. Sinuses: Visualized sinuses and mastoids are clear. IMPRESSION: Limited intracranial study, without an acute abnormality identified. No cause of seizure can be seen. If it would be helpful for clinical management decision making, please consider a dedicated CT debbie col MRI (without and with contrast) for further evaluation (assuming that there is no contraindicati on). Reviewed by: Praneeth Eisenberg MD on 12/30/2020 4:01 PM JUSTUS Approved by: Praneeth Eisenberg MD on 12/30/2020 4:01 PM JUSTUS Station ID: [id number]
--- NOTE | 2020-12-30 17:32 | PHARMACY PROGRESS NOTE ---
- Best Possible Medication History Admit Date and Time: 12/30/20 1456 Processed by: Pharmacy Medication History completed: Yes Secondary Source(s): Facility MAR as ONLY source As the person ultimately responsible for medication therapy, providers are able to order a medication from an existing home medication list in [facility] via the "Reconcile Routine" prior to Confirmation of that medication by intranet support. Such practice is discouraged except when the physician, in their clinical judgment, deems that a medical need exists for a medication without regard to previous use.
[2020-12-30] MEDS: SODIUM CHLORIDE FLUSH 0.9% 10 ML SYRINGE IVP SCH (21:04)
[2020-12-30 21:09] LABS: CALCIUM 8.5 mg/dL (8.5-10.3); CREATININE 0.3 mg/dL (0.4-1.0); POTASSIUM 3.1 mmol/L (3.5-5.0)
[2020-12-30] MEDS ORDERED: MIN OIL/DIMETHICON/COCONUT OIL 92 GM TUBE TOP PRN (21:28)
[2020-12-30] MEDS ORDERED: fentaNYL 25 MCG PATCH TOP SCH (22:00)
[2020-12-30] MEDS: POTASSIUM CHLORIDE 20 MEQ/15 ML UDC PO SCH (23:05)
[2020-12-30] MEDS: SODIUM CHLORIDE 0.9% 1,000 ML IV SCH (23:42)
[2020-12-31] MEDS: SODIUM CHLORIDE FLUSH 0.9% 10 ML SYRINGE IVP SCH ×4 (00:55→23:30)
[2020-12-31] MEDS: MEROPENEM 1 GM in SODIUM CHLORIDE 0.9% MINIBAG 100 ML IV SCH ×3 (05:24→20:30)
[2020-12-31 05:27] LABS: BASOPHILS % (AUTO) 0.5 %; EOSINOPHILS % (AUTO) 0.6 %; HCT - HEMATOCRIT 34.1 % (37.0-47.0); HGB - HEMOGLOBIN 10.7 g/dL (12.0-16.0); MEAN CORPUSCULAR HEMOGLOBIN 27.1 pg (27.0-31.0); MEAN CORPUSCULAR HGB CONC 31.4 g/dL (32.0-36.0); MEAN CORPUSCULAR VOLUME 86.3 fL (81.0-99.0); MEAN PLATELET VOLUME 9.7 fL (7.9-10.8); MONOCYTES % (AUTO) 8.3 %; NEUTROPHILS % (AUTO) 73.2 %; PLT - PLATELET COUNT 401 10^3/uL (130-450); RED BLOOD COUNT 3.95 10^6/uL (4.20-5.40); RED CELL DISTRIBUTION WIDTH 14.6 % (12.0-15.0); WHITE BLOOD COUNT 19.4 x10^3/uL (4.8-10.8)
[2020-12-31 05:34] LABS: ABNORMAL LYMPHS % (MANUAL) 0 %; BAND NEUTROPHILS % (MANUAL) 0 %
[2020-12-31 05:47] LABS: DIFFERENTIAL COMMENT MANUAL DIFFERENTIAL; LYMPHOCYTES # (MANUAL) 3.5 10^3/uL (1.5-3.5); LYMPHOCYTES % (MANUAL) 18 %; MONOCYTES # (MANUAL) 1.4 10^3/uL (0.0-1.0); NEUTROPHILS # (MANUAL) 14.6 10^3/uL (1.5-6.6); PLATELET ESTIMATE, MANUAL NORMAL (130-450,000) (NORMAL); PLATELET MORPHOLOGY NORMAL APPEARANCE (NORMAL); RBC MORPHOLOGY (MULTIPLE) NORMAL APPEARANCE (NORMAL); WBC MORPHOLOGY (MULTIPLE) NORMAL APPEARANCE (NORMAL)
[2020-12-31] MEDS: SODIUM CHLORIDE 0.9% 1,000 ML IV SCH ×3 (05:48→20:34)
[2020-12-31 06:44] LABS: CALCIUM 8.4 mg/dL (8.5-10.3); CREATININE 0.3 mg/dL (0.4-1.0); POTASSIUM 3.7 mmol/L (3.5-5.0)
[2020-12-31] MEDS: POTASSIUM CHLORIDE 20 MEQ/15 ML UDC PO SCH ×2 (08:36→20:25)
[2020-12-31] MEDS: FERROUS GLUCONATE 324 MG TABLET PO SCH (08:37)
[2020-12-31] MEDS: ENOXAPARIN 40 MG/0.4 ML SYRINGE SUBQ SCH (08:37)
[2020-12-31] MEDS: CHOLECALCIFEROL 25 MCG TABLET PO SCH (08:37)
[2020-12-31] MEDS: ASPIRIN EC 81 MG TABLET PO SCH (08:37)
[2020-12-31] MEDS: DULoxetine 30 MG CAPSULE PO SCH (08:38)
--- NOTE | 2020-12-31 14:35 | PROVIDER PROGRESS NOTE ---
Subjective - Prog Note Date Prog Note Date: 12/31/20 - Subjective Subjective: She denies any pain, chest pain, difficulty breathing. She does feel a little confused. She knows that she is at the hospital but does not know why she is here. Current Medications - Current Medications Current Medications: Active Medications Acetaminophen (Acetaminophen 325 Mg Tablet) 650 mg PO Q4HR PRN PRN Reason: Pain 1 to 4 Aspirin (Aspirin Ec 81 Mg Tablet) 81 mg PO DAILY [facility] Last Admin: 12/31/20 08:37 Dose: 81 mg Documented by: Cholecalciferol (Cholecalciferol 25 Mcg Tablet) 50 mcg PO DAILY [facility] Last Admin: 12/31/20 08:37 Dose: 50 mcg Documented by: Duloxetine HCl (Duloxetine 30 Mg Capsule) 60 mg PO DAILY [facility] Last Admin: 12/31/20 08:38 Dose: 60 mg Documented by: Enoxaparin Sodium (Enoxaparin 40 Mg/0.4 Ml Syringe) 40 mg SUBQ DAILY [facility] Last Admin: 12/31/20 08:37 Dose: 40 mg Documented by: Fentanyl (Fentanyl 25 Mcg Patch) 1 patch TOP Q3D [facility] Last Admin: 12/30/20 21:59 Dose: Not Given Documented by: Ferrous Gluconate (Ferrous Gluconate 324 Mg Tablet) 324 mg PO DAILYWM [facility] Last Admin: 12/31/20 08:37 Dose: 324 mg Documented by: Sodium Chloride (Normal Saline 0.9%) 1,000 mls @ 100 mls/hr IV .Q10H [facility] Last Infusion: 12/31/20 14:43 Dose: 100 mls/hr Documented by: Meropenem 1 gm/ Sodium (Chloride) 100 mls @ 200 mls/hr IV Q8H [facility] Last Infusion: 12/31/20 13:55 Dose: Infused Documented by: Mineral Oil (Min Oil/Dimethicon/Coconut Oil 92 Gm Tube) 1 applic TOP PRN PRN PRN Reason: Skin Care Ondansetron HCl (Ondansetron 4 Mg/2 Ml Vial) 4 mg IVP Q6HR PRN PRN Reason: Nausea / Vomiting Polyethylene Glycol (Polyethylene Glycol 3350 17 Gm Packet) 17 gm PO DAILY PRN PRN Reason: Bowel Protocol Potassium Chloride (Potassium Chloride 20 Meq/15 Ml Udc) 40 meq PO BID [facility] Stop: 12/31/20 21:01 Last Admin: 12/31/20 08:36 Dose: 40 meq Documented by: Senna (Senna 8.6 Mg Tablet) 8.6 mg PO DAILY PRN PRN Reason: Constipation Sodium Chloride (Sodium Chloride Flush 0.9% 10 Ml Syringe) 10 ml IVP PRN PRN PRN Reason: NEEDED PER PROVIDER ORDERS Sodium Chloride (Sodium Chloride Flush 0.9% 10 Ml Syringe) 10 ml IVP 0100,0900,1700 [facility] Last Admin: 12/31/20 08:42 Dose: Not Given Documented by: Acetaminophen [Tylenol Extra Strength] 500 - 1,000 mg PO Q6HR PRN 01/28/18 Aspirin [Adult Aspirin] 81 mg PO DAILY 01/28/18 Bisacodyl Supp [Dulcolax Supp] 1 supp AL DAILY PRN 01/28/18 Cholecalciferol (Vitamin D3) [Vitamin D] 2,000 unit PO DAILY 01/28/18 polyethylene glycoL 3350 [Miralax] 17 gm PO DAILY 01/28/18 Baclofen 10 mg PO TID 08/04/18 Calcium Carbonate [Tums (Calcium Carbonate 500mg)] 1,000 mg PO Q4HR PRN 11/09/18 DULoxetine [Cymbalta] 60 mg PO DAILY 11/09/18 Ferrous Gluconate [Iron] 240 mg PO DAILY 11/09/18 Gabapentin 100 mg PO DAILY 11/09/18 Gabapentin [Neurontin] 300 mg PO DAILY 11/09/18 HYDROcod/ACETAM 5/325 [[place] 5/325] 0.5 - 1 tab PO Q4HR PRN 11/09/18 Lovastatin 10 mg PO QPM 11/09/18 Naloxone HCl 0.1 ml SLY PRN PRN 11/09/18 Sennosides [Senna Lax] 8.6 mg PO BID 06/07/19 Albuterol Sulf [Ventolin Hfa Inhaler] 2 puffs INH Q4H PRN 08/23/20 Fluticasone/Salmeterol [Advair Hfa 115-21 Mcg Inhaler] 1 puffs IH BID 12/30/20 Oxybutynin Chloride [Ditropan Xl] 5 mg PO DAILY 12/30/20 Potassium Chloride [Micro-K] 30 meq PO DAILY 12/30/20 hydroCHLOROthiazide [Hydrochlorothiazide] 50 mg PO DAILY 12/30/20 fentaNYL [Fentanyl 25mcg patch] 1 each TD Q3D 12/31/20 Objective - Vital Signs/Intake & Output Reviewed Vital Signs: Yes Vital Signs: Vital Signs x48h Temp Pulse Resp BP BP Pulse Ox 12/31/20 13:33 96 12/31/20 11:37 37.0 C 84 18 142/77 H 96 12/31/20 08:48 97 12/31/20 08:38 36.8 C 87 16 141/74 H 97 12/31/20 08:30 99 Intake & Output: Intake & Output 12/28/20 12/29/20 12/30/20 12/31/20 23:59 23:59 23:59 23:59 Intake Total 2270.0 2300 Output Total 1600 550 Balance 670.0 1750 - Objective General Appearance: positive: No acute distress, Alert Eyes Bilateral: positive: Normal inspection, PERRL, Conjunctivae nml ENT: positive: ENT inspection nml Neck: positive: Nml inspection Respiratory: positive: No respiratory distress. negative: Wheezes, Rales Cardiovascular: positive: Regular rate & rhythm, No murmur. negative: Tachycardia Abdomen: positive: Non-tender, No distention, Other (Pain pump palpable in left lower quadrant.). negative: Tenderness Skin: positive: Warm, Dry Extremities: positive: No pedal edema Neurologic/Psychiatric: positive: Disoriented to time, Other (She does have significant lower extremity weakness which is reportedly her baseline. Her motor strength is about 1-2 out of 5. She is able to move her upper extremities and strength is equal bilaterally). negative: Disoriented to person, Disoriented to place, Facial droop - Lab Results Fish Bones: 12/31/20 05:09 12/31/20 05:09 Other Labs: Lab Results x24hrs 12/31/20 12/31/20 12/30/20 Range/Units 05:09 05:09 20:41 WBC 19.4 H (4.8-10.8) x10^3/uL RBC 3.95 L (4.20-5.40) 10^6/uL Hgb 10.7 L (12.0-16.0) g/dL Hct 34.1 L (37.0-47.0) % MCV 86.3 (81.0-99.0) fL MCH 27.1 (27.0-31.0) pg MCHC 31.4 L (32.0-36.0) g/dL RDW 14.6 (12.0-15.0) % Plt Count 401 (130-450) 10^3/uL MPV 9.7 (7.9-10.8) fL Neut # (Auto) Not Reportable Lymph # (Auto) Not Reportable [place] # (Auto) Not Reportable Eos # (Auto) Not Reportable Baso # (Auto) Not Reportable Absolute Nucleated RBC Not Reportable Total Counted 100 Band Neuts % (Manual) 0 (0 - 10) % Abnorm Lymph % (Manual) 0 % Nucleated RBC % Not Reportable Neutrophils # (Manual) 14.6 H (1.5-6.6) 10^3/uL Lymphocytes # (Manual) 3.5 (1.5-3.5) 10^3/uL Monocytes # (Manual) 1.4 H (0.0-1.0) 10^3/uL Eosinophils # (Manual) 0.0 (0-0.7) 10^3/uL Basophils # (Manual) 0.0 (0-0.1) 10^3/uL Differential Comment MANUAL DIFFERENTIAL WBC Morphology NORMAL APPEARANCE (NORMAL) Platelet Estimate NORMAL (130-450,000) (NORMAL) Platelet Morphology NORMAL APPEARANCE (NORMAL) RBC Morph Micro Appear NORMAL APPEARANCE (NORMAL) Sodium 131 L (135-145) mmol/L Potassium 3.7 (3.5-5.0) mmol/L Chloride 92 L (101-111) mmol/L Carbon Dioxide 30 (21-32) mmol/L Anion Gap 9.0 (6-13) BUN 10 (6-20) mg/dL Creatinine 0.3 L (0.4-1.0) mg/dL Estimated GFR (MDRD) 219 (>89) Glucose 105 H (70-100) mg/dL Calcium 8.4 L (8.5-10.3) mg/dL Ammonia (7-35) umol/L Total Creatine Kinase (22-269) IU/L Troponin I High Sens 14.8 (2.3-14.8) ng/L TSH (0.34-5.60) uIU/mL Nasal Adenovirus (PCR) Nasal B. parapertussis DNA (PCR) Nasal Coronavir 229E PCR Nasal Coronavir HKU1 PCR Nasal Coronavir NL63 PCR Nasal Coronavir OC43 PCR Nasal Enterovir/Rhinovir PCR Nasal Influenza B PCR Nasal Influenza A PCR Nasal Parainfluen 1 PCR Nasal Parainfluen 2 PCR Nasal Parainfluen 3 PCR Nasal Parainfluen 4 PCR Nasal RSV (PCR) Nasal B.pertussis DNA PCR Nasal C.pneumoniae (PCR) Sly Human Metapneumo PCR Nasal M.pneumoniae (PCR) Nasal SARS-CoV-2 (PCR) 12/30/20 12/30/20 12/30/20 Range/Units 20:41 16:45 16:45 WBC (4.8-10.8) x10^3/uL RBC (4.20-5.40) 10^6/uL Hgb (12.0-16.0) g/dL Hct (37.0-47.0) % MCV (81.0-99.0) fL MCH (27.0-31.0) pg MCHC (32.0-36.0) g/dL RDW (12.0-15.0) % Plt Count (130-450) 10^3/uL MPV (7.9-10.8) fL Neut # (Auto) Lymph # (Auto) [place] # (Auto) Eos # (Auto) Baso # (Auto) Absolute Nucleated RBC Total Counted Band Neuts % (Manual) (0 - 10) % Abnorm Lymph % (Manual) % Nucleated RBC % Neutrophils # (Manual) (1.5-6.6) 10^3/uL Lymphocytes # (Manual) (1.5-3.5) 10^3/uL Monocytes # (Manual) (0.0-1.0) 10^3/uL Eosinophils # (Manual) (0-0.7) 10^3/uL Basophils # (Manual) (0-0.1) 10^3/uL Differential Comment WBC Morphology (NORMAL) Platelet Estimate (NORMAL) Platelet Morphology (NORMAL) RBC Morph Micro Appear (NORMAL) Sodium 129 L (135-145) mmol/L Potassium 3.1 L (3.5-5.0) mmol/L Chloride 89 L (101-111) mmol/L Carbon Dioxide 32 (21-32) mmol/L Anion Gap 8.0 (6-13) BUN 12 (6-20) mg/dL Creatinine 0.3 L (0.4-1.0) mg/dL Estimated GFR (MDRD) 219 (>89) Glucose 114 H (70-100) mg/dL Calcium 8.5 (8.5-10.3) mg/dL Ammonia (7-35) umol/L Total Creatine Kinase 19 L (22-269) IU/L Troponin I High Sens (2.3-14.8) ng/L TSH 2.43 (0.34-5.60) uIU/mL Nasal Adenovirus (PCR) Nasal B. parapertussis DNA (PCR) Nasal Coronavir 229E PCR Nasal Coronavir HKU1 PCR Nasal Coronavir NL63 PCR Nasal Coronavir OC43 PCR Nasal Enterovir/Rhinovir PCR Nasal Influenza B PCR Nasal Influenza A PCR Nasal Parainfluen 1 PCR Nasal Parainfluen 2 PCR Nasal Parainfluen 3 PCR Nasal Parainfluen 4 PCR Nasal RSV (PCR) Nasal B.pertussis DNA PCR Nasal C.pneumoniae (PCR) Sly Human Metapneumo PCR Nasal M.pneumoniae (PCR) Nasal SARS-CoV-2 (PCR) 12/30/20 12/30/20 Range/Units 16:45 14:28 WBC (4.8-10.8) x10^3/uL RBC (4.20-5.40) 10^6/uL Hgb (12.0-16.0) g/dL Hct (37.0-47.0) % MCV (81.0-99.0) fL MCH (27.0-31.0) pg MCHC (32.0-36.0) g/dL RDW (12.0-15.0) % Plt Count (130-450) 10^3/uL MPV (7.9-10.8) fL Neut # (Auto) Lymph # (Auto) [place] # (Auto) Eos # (Auto) Baso # (Auto) Absolute Nucleated RBC Total Counted Band Neuts % (Manual) (0 - 10) % Abnorm Lymph % (Manual) % Nucleated RBC % Neutrophils # (Manual) (1.5-6.6) 10^3/uL Lymphocytes # (Manual) (1.5-3.5) 10^3/uL Monocytes # (Manual) (0.0-1.0) 10^3/uL Eosinophils # (Manual) (0-0.7) 10^3/uL Basophils # (Manual) (0-0.1) 10^3/uL Differential Comment WBC Morphology (NORMAL) Platelet Estimate (NORMAL) Platelet Morphology (NORMAL) RBC Morph Micro Appear (NORMAL) Sodium (135-145) mmol/L Potassium (3.5-5.0) mmol/L Chloride (101-111) mmol/L Carbon Dioxide (21-32) mmol/L Anion Gap (6-13) BUN (6-20) mg/dL Creatinine (0.4-1.0) mg/dL Estimated GFR (MDRD) (>89) Glucose (70-100) mg/dL Calcium (8.5-10.3) mg/dL Ammonia 13.7 (7-35) umol/L Total Creatine Kinase (22-269) IU/L Troponin I High Sens (2.3-14.8) ng/L TSH (0.34-5.60) uIU/mL Nasal Adenovirus (PCR) NOT DETECTED Nasal B. parapertussis DNA (PCR) NOT DETECTED Nasal Coronavir 229E PCR NOT DETECTED Nasal Coronavir HKU1 PCR NOT DETECTED Nasal Coronavir NL63 PCR NOT DETECTED Nasal Coronavir OC43 PCR NOT DETECTED Nasal Enterovir/Rhinovir PCR NOT DETECTED Nasal Influenza B PCR NOT DETECTED Nasal Influenza A PCR NOT DETECTED Nasal Parainfluen 1 PCR NOT DETECTED Nasal Parainfluen 2 PCR NOT DETECTED Nasal Parainfluen 3 PCR NOT DETECTED Nasal Parainfluen 4 PCR NOT DETECTED Nasal RSV (PCR) NOT DETECTED Nasal B.pertussis DNA PCR NOT DETECTED Nasal C.pneumoniae (PCR) NOT DETECTED Sly Human Metapneumo PCR NOT DETECTED Nasal M.pneumoniae (PCR) NOT DETECTED Nasal SARS-CoV-2 (PCR) NOT DETECTED ABX Reporting Has patient been on IV antibiotics over the past 48 hours?: No Assessment/Plan - Problem List (1) Confusion Impression: She is confused today although this is improved compared to yesterday. Reportedly per Rekha Montero, she does have some forgetfulness/dementia at baseline. This morning she is able to make sure to the hospital but was slow to respond. This may be related to the Ativan she received yesterday evening as we suspect that she may be having focal seizures as she was having a blank stare and became less responsive as we were conversing. CT the head yesterday showed no acute abnormalities. She has no obvious focal deficits on exam except for her baseline deficits from her multiple sclerosis. Ammonia and TSH are within normal limits. We will continue to observe for 1 more night given she still is slightly confused. Will avoid all sedatives unless she were to have a seizure. Unfortunately cannot obtain MRI due to the pain pump in her left lower quadrant. If she continues to improve and is back to her baseline tomorrow she can go back to [facility]. (2) Unresponsive episode Impression: She did have another unresponsive episode yesterday evening and the concern was for possible seizure and so she was given Ativan. CT was unremarkable. She not had any further episodes today but she is confused as mentioned above. I am not sure if she truly had a seizure or not and to hold off on antiepileptics at this time. We will continue to monitor overnight. (3) Syncope Impression: At this point I am not sure if she truly had a syncopal episode but nonetheless, work-up has been unremarkable. Echo revealed no significant valvular disease. Orthostatics are difficult to obtain given she is wheelchair-bound but these have been unremarkable from lying to seated position. There has been no evidence of arrhythmias on telemetry. Her troponins have been normal. Qualifiers: Syncope type: unspecified Qualified Code(s): R55 - Syncope and collapse (4) Urinary tract infection Impression: She had been on ertapenem on outpatient basis for UTI. We will continue meropenem while she is hospitalized. Her white count is still elevated although this may have been reactive given the events yesterday. Will defer to her primary care provider regarding length of treatment. She can go back on ertapenem once she is discharged tomorrow. Blood cultures have been negative to date. Qualifiers: Urinary tract infection type: catheter-associated UTI Indwelling urinary catheter type: indwelling urethral catheter Encounter type: initial encounter Qualified Code(s): T83.511A - Infection and inflammatory reaction due to indw elling urethral catheter, initial encounter; N39.0 - Urinary tract infection, site not specified (5) Hyponatremia Impression: This was likely hypovolemic hyponatremia. This is likely secondary to thiazide use.. Her sodium has improved with IV fluids. We will continue to gently hydrate her today. We will discontinue hydrochlorothiazide on discharge. (6) Leukocytosis Impression: Remains elevated but is improved. Her white count has been elevated over the past few months and she is currently receiving treatment for ESBL E. coli UTI. This is sensitive to Carbapenem's and we do have her on meropenem. We will continue to monitor his CBC but there is no evidence at this time of worsening infection. Qualifiers: Leukocytosis type: unspecified Qualified Code(s): D72.829 - Elevated white blood cell count, unspecified (7) Multiple sclerosis Impression: Stable and at baseline. We will resume her home baclofen and gabapentin.
[2020-12-31] MEDS: GABAPENTIN 300 MG CAPSULE PO SCH (20:25)
[2020-12-31] MEDS: ATORVASTATIN 10 MG TABLET PO SCH (20:25)
[2020-12-31] MEDS ORDERED: ZINC OXIDE 20% OINT 30 GM TUBE TOP PRN (20:26)
[2020-12-31] MEDS: BACLOFEN 10 MG TABLET PO SCH (21:32)
[2021-01-01] MEDS: BACLOFEN 10 MG TABLET PO SCH ×3 (05:24→21:00)
[2021-01-01] MEDS: MEROPENEM 1 GM in SODIUM CHLORIDE 0.9% MINIBAG 100 ML IV SCH ×3 (05:24→20:53)
[2021-01-01 06:05] LABS: BASOPHILS # (AUTO) 0.1 10^3/uL (0.0-0.1); BASOPHILS % (AUTO) 0.8 %; EOSINOPHILS # (AUTO) 0.3 10^3/uL (0.0-0.7); EOSINOPHILS % (AUTO) 1.7 %; HCT - HEMATOCRIT 33.5 % (37.0-47.0); HGB - HEMOGLOBIN 10.6 g/dL (12.0-16.0); LYMPHOCYTES # (AUTO) 3.3 10^3/uL (1.5-3.5); LYMPHOCYTES % (AUTO) 20.6 %; MEAN CORPUSCULAR HGB CONC 31.6 g/dL (32.0-36.0); MEAN CORPUSCULAR VOLUME 85.2 fL (81.0-99.0); MEAN PLATELET VOLUME 9.6 fL (7.9-10.8); MONOCYTES # (AUTO) 1.2 10^3/uL (0.0-1.0); MONOCYTES % (AUTO) 7.6 %; NEUTROPHILS # (AUTO) 11.2 10^3/uL (1.5-6.6); NEUTROPHILS % (AUTO) 68.7 %; PLT - PLATELET COUNT 400 10^3/uL (130-450); RED BLOOD COUNT 3.93 10^6/uL (4.20-5.40); RED CELL DISTRIBUTION WIDTH 14.6 % (12.0-15.0); WHITE BLOOD COUNT 16.2 x10^3/uL (4.8-10.8)
[2021-01-01 06:14] LABS: CALCIUM 8.4 mg/dL (8.5-10.3); CREATININE 0.3 mg/dL (0.4-1.0); MAGNESIUM 1.9 mg/dL (1.7-2.8); POTASSIUM 3.5 mmol/L (3.5-5.0)
[2021-01-01] MEDS: FERROUS GLUCONATE 324 MG TABLET PO SCH (08:14)
[2021-01-01] MEDS: SODIUM CHLORIDE FLUSH 0.9% 10 ML SYRINGE IVP SCH ×2 (08:35→16:59)
[2021-01-01] MEDS: ENOXAPARIN 40 MG/0.4 ML SYRINGE SUBQ SCH (08:35)
[2021-01-01] MEDS: ASPIRIN EC 81 MG TABLET PO SCH (08:35)
[2021-01-01] MEDS: CHOLECALCIFEROL 25 MCG TABLET PO SCH (08:35)
[2021-01-01] MEDS: SODIUM CHLORIDE 0.9% 1,000 ML IV SCH ×2 (08:35→19:34)
[2021-01-01] MEDS: DULoxetine 30 MG CAPSULE PO SCH (08:35)
[2021-01-01] MEDS: GABAPENTIN 100 MG CAPSULE PO SCH (08:35)
--- NOTE | 2021-01-01 09:20 | Discharge Plan ---
"Discharge Plan for SNF / [facility] - Discharge Plan And Transition Orders Problem Reviewed?: Yes Disposition: 03 SNF DC/Xfer Condition: Stable Allergies and Adverse Reactions: Allergies Allergy/AdvReac Type Severity Reaction Status Date / Time nystatin Allergy Unknown Verified 12/30/20 12:59 Penicillins Allergy Unknown Verified 12/30/20 12:59 Health Concerns: Patient admitted with altered mental status (unresponsive) probably due UTI and Hyponatremia. She received IV meropenem while here for her ESBL E. coli and her Proteus bacteria growing in the urine culture. Her mental status has improved to its baseline. Plan of Treatment: Plan is to complete a course of antibiotics for the UTI, at [facility], and resume all her usual medications. Care Goals: Improvement in symptoms and stabilization are the goals. Assessment: Orders written to return to [facility]. - SNF / NURSING HOME Transition Orders Admit to (Facility): [facility] Under the care of (Name): Dr Nicolas Liz Discharge Diagnosis: (1) Unresponsive episode The concern was syncope and she was monitored on telemetry and her entire syncope work-up was within normal limits. The other possibility was a focal seizure and she received Ativan x1. Later she was slow to awaken presumably from the Ativan. We did not thionk this was a seizure and did not continue seizure meds. Eventually she came back to her usual state of alertness with iv fluids and iv antibiotic treatment. (2) Urinary tract infection She was growing ESBL E. coli and Proteus. We used meropenem IV while she was here. She may return back to ertapenem or Cipro at the assisted. (3) Hyponatremia This was the other presumed etiology for her altered mental status. She received normal saline IV and her sodium improved. (4) Multiple sclerosis She is wheelchair bound at baseline. We continued her baclofen and gabapentin. (5) Dementia Reportedly per [facility], she does have some forgetfulness/dementia at baseline. Medicare Certification Statement: I certify that Post Hospital detention care is medically necessary on a continuing basis for any of the conditions for which she/he is receiving care during hospitalization. Notify PCP of admission and forward orders to primary provider for signature. Weight on admission and: Weekly Call PCP immediately if weight increases by: 4 kg Other Notification Orders: Call PCP immediately if patient develops dyspnea, chest pain/tightness or edema. House Bowel Program: Yes Additional Bowel Program Orders: If no BM after 2 days, nurse may give M.O.M. 30ml PO PRN and/or ducolax Supp 1 ND and/or JAIR 250mg P.O., and/or senna 1-2 tabs PO. On day 3 nurse may give repeat above order until residents constipation is resolved. Annual Influenza Vaccine (between Mar 20 and October 17): Yes Two-step PPD per [facility] [phone] or approved exception documents: Yes Medication Orders: PLEASE REFER TO THE DISCHARGE MEDICATION LIST. Insulin Orders?: No - Diet Type: Geriatric Texture: Regular Liquids: Thin May have monthly special meal: Yes - Therapies | Activity Rehabilitation Potential: Maintain present ADL Functional Activity: Activity as Tolerated Weight Bearing: No Weight Assistance Devices: Wheelchair"
--- NOTE | 2021-01-01 15:57 | PROVIDER PROGRESS NOTE ---
Assessment/Plan - Problem List (1) Unresponsive episode Assessment/Plan: The concern was syncope and she was monitored on telemetry and her entire syncope work-up was within normal limits. The other possibility was a focal seizure and she received Ativan x1. Later she was slow to awaken presumably from the Ativan. We did not think this was a seizure and did not continue seizure meds. Today she is back to her usual state of alertness after iv fluids and iv antibiotic treatment. Ready for [facility] to [facility], but her [employer] has not approved that transfer yet. (2) Urinary tract infection She was growing ESBL E. coli and Proteus. We used meropenem IV while she was here. She may return back to ertapenem or Cipro at the intermediate. (3) Hyponatremia This was the other presumed etiology for her altered mental status. She is getting normal saline IV and her sodium has improved. Follow BMP daily. (4) Multiple sclerosis She is wheelchair bound at baseline. No PT or OT was ordered. We are continuing her baclofen and gabapentin. (5) Dementia Reportedly per [facility], she does have some forgetfulness/dementia at baseline. - Current Meds Current Meds: Current Medications Generic Name Dose Route Start Last Admin Trade Name Freq PRN Reason Stop Dose Admin Aspirin 81 mg 12/31/20 09:00 01/01/21 08:35 Aspirin Ec 81 Mg Tablet PO 81 mg DAILY JOSE FRANCISCO Administration Atorvastatin Calcium 10 mg 12/31/20 21:00 12/31/20 20:25 Atorvastatin 10 Mg Tablet PO 10 mg QPM JOSE FRANCISCO Administration Baclofen 10 mg 12/31/20 22:00 01/01/21 14:03 Baclofen 10 Mg Tablet PO 10 mg TID JOSE FRANCISCO Administration Cholecalciferol 50 mcg 12/31/20 09:00 01/01/21 08:35 Cholecalciferol 25 Mcg Tablet PO 50 mcg DAILY JOSE FRANCISCO Administration Duloxetine HCl 60 mg 12/31/20 09:00 01/01/21 08:35 Duloxetine 30 Mg Capsule PO 60 mg DAILY JOSE FRANCISCO Administration Enoxaparin Sodium 40 mg 12/31/20 09:00 01/01/21 08:35 Enoxaparin 40 Mg/0.4 Ml Syringe SUBQ 40 mg DAILY JOSE FRANCISCO Administration Fentanyl 1 patch 12/30/20 22:00 12/30/20 21:59 Fentanyl 25 Mcg Patch TOP Not Given Q3D JOSE FRANCISCO Ferrous Gluconate 324 mg 12/31/20 08:00 01/01/21 08:14 Ferrous Gluconate 324 Mg Tablet PO 324 mg DAILYWM JOSE FRANCISCO Administration Gabapentin 100 mg 01/01/21 09:00 01/01/21 08:35 Gabapentin 100 Mg Capsule PO 100 mg DAILY JOSE FRANCISCO Administration Gabapentin 300 mg 12/31/20 21:00 12/31/20 20:25 Gabapentin 300 Mg Capsule PO 300 mg QPM JOSE FRANCISCO Administration Sodium Chloride 1,000 mls @ 100 mls/hr 12/30/20 15:00 01/01/21 08:35 Normal Saline 0.9% IV 100 mls/hr .Q10H JOSE FRANCISCO Administration Meropenem 1 gm/ Sodium 100 mls @ 200 mls/hr 12/31/20 05:00 01/01/21 13:35 Chloride IV Infused Q8H JOSE FRANCISCO Infusion Sodium Chloride 10 ml 12/30/20 17:00 01/01/21 08:35 Sodium Chloride Flush 0.9% 10 Ml Syringe IVP Not Given 0100,0900,1700 JOSE FRANCISCO - Lab Result Fish Bone Diagrams: 01/01/21 05:51 01/01/21 05:51 Subjective - Subjective Patient Reports: Feeling Better, Resting Comfortably, No Complaints Nursing Reports: Other (Communicative, eating 100% of her tray.) Objective Vital Signs: Vital Signs - 24 hr 12/31/20 01/01/21 01/01/21 20:00 00:10 05:00 Temperature 37.0 C 37 C 37.1 C Heart Rate [ Brachial] Heart Rate [ 92 77 92 Radial] Respiratory 20 18 16 Rate Blood Pressure [Left Brachial artery] Blood Pressure 123/69 153/86 H [Left Radial artery] Blood Pressure 144/81 H [Right Radial artery] O2 Saturation 97 95 99 01/01/21 01/01/21 01/01/21 08:37 12:06 15:41 Temperature 36.9 C 37.1 C 36.8 C Heart Rate [ 89 105 H Brachial] Heart Rate [ 78 Radial] Respiratory 16 18 20 Rate Blood Pressure 141/66 H [Left Brachial artery] Blood Pressure 134/84 H 130/86 H [Left Radial artery] Blood Pressure [Right Radial artery] O2 Saturation 98 97 97 Oxygen O2 Source Room air I&O (Last 24 Hrs): Intake and Output Totals x24h 12/30/20 12/31/20 01/01/21 23:59 23:59 23:59 Intake Total 2270.0 3613.333 3120 Output Total 1600 2300 3200 Balance 670.0 1313.333 -80 General: Alert HEENT: Atraumatic, Mucous membr. moist/pink Neck: Supple, No JVD Neuro: Alert, Other (Weak, especially legs) Cardiovascular: Regular rate Respiratory: No respiratory distress Abdomen: Soft, No tenderness Extremities: No edema - Results Results: Laboratory Results WBC 16.2 x10^3/uL (4.8-10.8) H 01/01/21 05:51 RBC 3.93 10^6/uL (4.20-5.40) L 01/01/21 05:51 Hgb 10.6 g/dL (12.0-16.0) L 01/01/21 05:51 Hct 33.5 % (37.0-47.0) L 01/01/21 05:51 MCV 85.2 fL (81.0-99.0) 01/01/21 05:51 MCH 27.0 pg (27.0-31.0) 01/01/21 05:51 MCHC 31.6 g/dL (32.0-36.0) L 01/01/21 05:51 RDW 14.6 % (12.0-15.0) 01/01/21 05:51 Plt Count 400 10^3/uL (130-450) 01/01/21 05:51 MPV 9.6 fL (7.9-10.8) 01/01/21 05:51 Neut # (Auto) 11.2 10^3/uL (1.5-6.6) H 01/01/21 05:51 Lymph # (Auto) 3.3 10^3/uL (1.5-3.5) 01/01/21 05:51 [place] # (Auto) 1.2 10^3/uL (0.0-1.0) H 01/01/21 05:51 Eos # (Auto) 0.3 10^3/uL (0.0-0.7) 01/01/21 05:51 Baso # (Auto) 0.1 10^3/uL (0.0-0.1) 01/01/21 05:51 Absolute Nucleated RBC 0.00 x10^3/uL 01/01/21 05:51 Total Counted 100 12/31/20 05:09 Band Neuts % (Manual) 0 % (0-10) 12/31/20 05:09 Abnorm Lymph % (Manual) 0 % 12/31/20 05:09 Nucleated RBC % 0.0 /100WBC 01/01/21 05:51 Neutrophils # (Manual) 14.6 10^3/uL (1.5-6.6) H 12/31/20 05:09 Lymphocytes # (Manual) 3.5 10^3/uL (1.5-3.5) 12/31/20 05:09 Monocytes # (Manual) 1.4 10^3/uL (0.0-1.0) H 12/31/20 05:09 Eosinophils # (Manual) 0.0 10^3/uL (0-0.7) 12/31/20 05:09 Basophils # (Manual) 0.0 10^3/uL (0-0.1) 12/31/20 05:09 Differential Comment MANUAL DIFFERENTIAL 12/31/20 05:09 WBC Morphology NORMAL APPEARANCE (NORMAL) 12/31/20 05:09 Platelet Estimate NORMAL (130-450,000) (NORMAL) 12/31/20 05:09 Platelet Morphology NORMAL APPEARANCE (NORMAL) 12/31/20 05:09 RBC Morph Micro Appear NORMAL APPEARANCE (NORMAL) 12/31/20 05:09 Sodium 132 mmol/L (135-145) L 01/01/21 05:51 Potassium 3.5 mmol/L (3.5-5.0) 01/01/21 05:51 Chloride 94 mmol/L (101-111) L 01/01/21 05:51 Carbon Dioxide 30 mmol/L (21-32) 01/01/21 05:51 Anion Gap 8.0 (6-13) 01/01/21 05:51 BUN 8 mg/dL (6-20) 01/01/21 05:51 Creatinine 0.3 mg/dL (0.4-1.0) L 01/01/21 05:51 Estimated GFR (MDRD) 219 (>89) 01/01/21 05:51 Glucose 100 mg/dL (70-100) 01/01/21 05:51 Lactic Acid 0.8 mmol/L (0.5-2.2) 12/30/20 14:03 Calcium 8.4 mg/dL (8.5-10.3) L 01/01/21 05:51 Magnesium 1.9 mg/dL (1.7-2.8) 01/01/21 05:51 Total Bilirubin 0.5 mg/dL (0.2-1.0) 12/30/20 12:23 AST 13 IU/L (10-42) 12/30/20 12:23 ALT 10 IU/L (10-60) 12/30/20 12:23 Alkaline Phosphatase 113 IU/L (42-121) 12/30/20 12:23 Ammonia 13.7 umol/L (7-35) 12/30/20 16:45 Total Creatine Kinase 19 IU/L (22-269) L 12/30/20 16:45 Troponin I High Sens 14.8 ng/L (2.3-14.8) 12/30/20 20:41 Total Protein 8.2 g/dL (6.7-8.2) 12/30/20 12:23 Albumin 3.5 g/dL (3.2-5.5) 12/30/20 12:23 Globulin 4.7 g/dL (2.1-4.2) H 12/30/20 12:23 Albumin/Globulin Ratio 0.7 (1.0-2.2) L 12/30/20 12:23 Lipase 22 U/L (22-51) 12/30/20 12:23 TSH 2.43 uIU/mL (0.34-5.60) 12/30/20 16:45 Urine Color YELLOW 12/30/20 13:58 Urine Clarity CLEAR (CLEAR) 12/30/20 13:58 Urine pH 7.0 PH (5.0-7.5) 12/30/20 13:58 Ur Specific Raymond 1.025 (1.002-1.030) 12/30/20 13:58 Urine Protein 30 mg/dL (NEGATIVE) H 12/30/20 13:58 Urine Glucose (UA) NEGATIVE mg/dL (NEGATIVE) 12/30/20 13:58 Urine Ketones NEGATIVE mg/dL (NEGATIVE) 12/30/20 13:58 Urine Occult Blood MODERATE (NEGATIVE) H 12/30/20 13:58 Urine Nitrite NEGATIVE (NEGATIVE) 12/30/20 13:58 Urine Bilirubin NEGATIVE (NEGATIVE) 12/30/20 13:58 Urine Urobilinogen 0.2 (NORMAL) E.U./dL (NORMAL) 12/30/20 13:58 Ur Leukocyte Esterase NEGATIVE (NEGATIVE) 12/30/20 13:58 Urine RBC 11-25 /HPF (0-5) H 12/30/20 13:58 Urine WBC 4-5 /HPF (0-5) 12/30/20 13:58 Ur Squamous Epith Cells MOD Squamous (<= Few) H 12/30/20 13:58 Urine Bacteria Few /HPF (None Seen) 12/30/20 13:58 Ur Microscopic Review INDICATED 12/30/20 13:58 Urine Culture Comments NOT INDICATED 12/30/20 13:58 Nasal Adenovirus (PCR) NOT DETECTED 12/30/20 14:28 Nasal B. parapertussis DNA (PCR) NOT DETECTED 12/30/20 14:28 Nasal Coronavir 229E PCR NOT DETECTED 12/30/20 14:28 Nasal Coronavir HKU1 PCR NOT DETECTED 12/30/20 14:28 Nasal Coronavir NL63 PCR NOT DETECTED 12/30/20 14:28 Nasal Coronavir OC43 PCR NOT DETECTED 12/30/20 14:28 Nasal Enterovir/Rhinovir PCR NOT DETECTED 12/30/20 14:28 Nasal Influenza B PCR NOT DETECTED 12/30/20 14:28 Nasal Influenza A PCR NOT DETECTED 12/30/20 14:28 Nasal Parainfluen 1 PCR NOT DETECTED 12/30/20 14:28 Nasal Parainfluen 2 PCR NOT DETECTED 12/30/20 14:28 Nasal Parainfluen 3 PCR NOT DETECTED 12/30/20 14:28 Nasal Parainfluen 4 PCR NOT DETECTED 12/30/20 14:28 Nasal RSV (PCR) NOT DETECTED 12/30/20 14:28 Nasal B.pertussis DNA PCR NOT DETECTED 12/30/20 14:28 Nasal C.pneumoniae (PCR) NOT DETECTED 12/30/20 14:28 Morgan Human Metapneumo PCR NOT DETECTED 12/30/20 14:28 Nasal M.pneumoniae (PCR) NOT DETECTED 12/30/20 14:28 Nasal SARS-CoV-2 (PCR) NOT DETECTED 12/30/20 14:28 - Procedures Procedures: Procedures EXCISION OF DUODENUM, ENDO, DIAGN (06/06/15) INSPECTION OF LOWER INTESTINAL TRACT, ENDO (05/04/18)
[2021-01-01] MEDS: GABAPENTIN 300 MG CAPSULE PO SCH (20:56)
[2021-01-01] MEDS: ATORVASTATIN 10 MG TABLET PO SCH (20:56)
[2021-01-02] MEDS: SODIUM CHLORIDE FLUSH 0.9% 10 ML SYRINGE IVP SCH ×2 (02:16→08:56)
[2021-01-02] MEDS: BACLOFEN 10 MG TABLET PO SCH ×2 (05:52→14:19)
[2021-01-02] MEDS: MEROPENEM 1 GM in SODIUM CHLORIDE 0.9% MINIBAG 100 ML IV SCH ×2 (06:03→12:31)
[2021-01-02] MEDS: SODIUM CHLORIDE 0.9% 1,000 ML IV SCH (07:46)
[2021-01-02] MEDS: DULoxetine 30 MG CAPSULE PO SCH (08:52)
[2021-01-02] MEDS: CHOLECALCIFEROL 25 MCG TABLET PO SCH (08:52)
[2021-01-02] MEDS: GABAPENTIN 100 MG CAPSULE PO SCH (08:53)
[2021-01-02] MEDS: ASPIRIN EC 81 MG TABLET PO SCH (08:53)
[2021-01-02] MEDS: ENOXAPARIN 40 MG/0.4 ML SYRINGE SUBQ SCH (08:54)
[2021-01-02] MEDS ORDERED: DOCUSATE SODIUM 250 MG CAPSULE PO SCH (09:00)
[2021-01-02 10:06] LABS: B. PARAPERTUSSIS- RESP PCR PAN NOT DETECTED; B. PERTUSSIS- RESP PCR PANEL NOT DETECTED; C. PNEUMONIAE- RESP PCR PANEL NOT DETECTED; CORONAVIRUS 229E-RESP PCR NOT DETECTED; CORONAVIRUS HKU1-RESP PCR NOT DETECTED; CORONAVIRUS NL63-RESP PCR NOT DETECTED; CORONAVIRUS OC43-RESP PCR NOT DETECTED; HUMAN METAPNEUMOVIRUS NOT DETECTED; INFLUENZA A- RESP PCR PANEL NOT DETECTED; INFLUENZA B - RESP PCR PANEL NOT DETECTED; M. PNEUMONIAE- RESP PCR PANEL NOT DETECTED; PARAINFLUENZA VIRUS 1 NOT DETECTED; PARAINFLUENZA VIRUS 2 NOT DETECTED; PARAINFLUENZA VIRUS 3 NOT DETECTED; PARAINFLUENZA VIRUS 4 NOT DETECTED; RHINOVIRUS/ENTEROVIRUS NOT DETECTED; RSV- RESP PCR PANEL NOT DETECTED; SARS-CoV-2 -RESP PCR PANEL NOT DETECTED
--- NOTE | 2021-01-02 14:43 | DISCHARGE SUMMARY ---
Discharge Summary Admit Date: 12/30/20 Discharge Date: 01/02/21 Discharging Provider: Dr Aniya Corrigan Primary Care Provider: Dr Vega Liz Condition at Discharge: Stable Discharge Disposition: 03 DC/Xfer - HPI History of Present Illness: From the admission H&P of Dr Lee Gaston: This is a 70-year-old female with a past medical history significant for multiple sclerosis, chronic pain, recurrent urinary tract infection, chronic indwelling Good catheter who presents today after having an unresponsive episode at [facility]. History from the patient is limited due to her being a poor historian and then becoming confused during our conversation. The patient reportedly became unresponsive today shortly after receiving her IV antibiotics. She has been on ciprofloxacin, and most recently on iv Ertapenem for a urinary tract infection. Her urine cultures have grown ESBL E. coli and Proteus. When staff checked on her, they noted that she had a blank stare but when I asked if she went to go to the hospital she responded yes. Upon EMS arrival, she appeared to be diaphoretic and looked more ill. In the emergency department, she was alert and oriented per the ER provider. She was complaining of abdominal pain and a CT of the abdomen pelvis was obtained which showed a nonobstructing left kidney stone and stool within the rectum but otherwise it was unremarkable. Her white count was noted to be elevated at 20,000. Her lactic acid was normal and her renal function is at baseline. Her sodium was decreased at 128. She was given normal saline. Her EKG revealed normal sinus rhythm and her troponin was normal. The concern was for syncope and so medicine was consulted for admission. Upon my initial evaluation, the patient was able to converse with me. She told me that she denies any chest pain, dyspnea, dizziness, lightheadedness. She reports no palpitations. She knew she is at the hospital but cannot recall exactly why. She did report mild abdominal pain but no nausea or vomiting. I am unable to confirm the patient's goals of care due to her confusion at this time. She does have a POLST form which states that she is a DNR. Her son, Adan, is an emergency contact and I have called him to confirm the patient's code status but there was no answer. At this time, she will be made a DNR and given her POLST form which states this. - HOSPITAL COURSE Hospital Course: (1) Unresponsive episode The concern was syncope and she was monitored on telemetry and her entire syncope work-up was within normal limits. The other possibility was a focal seizure and she received Ativan x1. Later she was slow to awaken presumably from that Ativan. We did not think this was a seizure and did not continue seizure meds. Eventually she came back to her usual state of alertness with iv fluids and iv antibiotic treatment. (2) Urinary tract infection She was growing ESBL E. coli and Proteus, before this hospitalization. her WBC was elevated and we continued UTI treatment using meropenem IV while she was here. She may return back to iv Ertapenem at the group home. (3) Hyponatremia This was the other presumed etiology for her altered mental status. She received Normal Saline IV and her sodium improved. (4) Multiple sclerosis She is wheelchair bound at baseline and has a chronic Good. We continued her baclofen and gabapentin while here. (5) Dementia Reportedly per [facility], she does have some forgetfulness/dementia at baseline. - ALLERGIES Allergies/Adverse Reactions: Allergies Allergy/AdvReac Type Severity Reaction Status Date / Time nystatin Allergy Unknown Verified 12/30/20 12:59 Penicillins Allergy Unknown Verified 12/30/20 12:59 - MEDICATIONS Home Medications: Ambulatory Orders Medication Instructions Recorded Confirmed Acetaminophen [Tylenol Extra 500 - 1,000 mg PO Q6HR PRN 01/28/18 12/30/20 Strength] Aspirin [Adult Aspirin] 81 mg PO DAILY 01/28/18 12/30/20 Bisacodyl Supp [Dulcolax Supp] 1 supp TN DAILY PRN 01/28/18 12/30/20 Cholecalciferol (Vitamin D3) 2,000 unit PO DAILY 01/28/18 12/30/20 [Vitamin D3] polyethylene glycoL 3350 [Miralax] 17 gm PO DAILY 01/28/18 12/30/20 Baclofen 10 mg PO TID 08/04/18 12/30/20 Calcium Carbonate [Tums (Calcium 1,000 mg PO Q4HR PRN 11/09/18 12/30/20 Carbonate 500mg)] DULoxetine [Cymbalta] 60 mg PO DAILY 11/09/18 12/30/20 Ferrous Gluconate [Iron] 240 mg PO DAILY 11/09/18 12/30/20 Gabapentin 100 mg PO DAILY 11/09/18 12/30/20 Gabapentin [Neurontin] 300 mg PO DAILY 11/09/18 12/30/20 HYDROcod/ACETAM 5/325 [Garner 5/325] 0.5 - 1 tab PO Q4HR PRN 11/09/18 12/30/20 Lovastatin 10 mg PO QPM 11/09/18 12/30/20 Naloxone HCl 0.1 ml SLY PRN PRN 11/09/18 12/30/20 Sennosides [Senna Lax] 8.6 mg PO BID 06/07/19 12/30/20 Albuterol Sulf [Ventolin Hfa 2 puffs INH Q4H PRN 08/23/20 12/30/20 Inhaler] Fluticasone/Salmeterol [Advair Hfa 1 puffs IH BID 12/30/20 12/30/20 115-21 Mcg Inhaler] Oxybutynin Chloride [Ditropan Xl] 5 mg PO DAILY 12/30/20 12/30/20 Potassium Chloride [Micro-K] 30 meq PO DAILY 12/30/20 12/30/20 hydroCHLOROthiazide 50 mg PO DAILY 12/30/20 12/30/20 [Hydrochlorothiazide] fentaNYL [Fentanyl 25mcg patch] 1 each TD Q3D 12/31/20 12/31/20 Ertapenem [INVanz] 1 gm IV DAILY 01/02/21 01/02/21 - PHYSICAL EXAM AT DISCHARGE General Appearance: positive: No acute distress, Alert Eyes Bilateral: positive: Normal inspection, EOMI ENT: positive: ENT inspection nml, No signs of dehydration Neck: positive: Nml inspection, No JVD Respiratory: positive: No respiratory distress, Breath sounds nml Cardiovascular: positive: Regular rate & rhythm, No murmur Abdomen: positive: Non-tender, No distention Skin: positive: No rash, Warm, Dry Extremities: positive: Non-tender, No pedal edema Neurologic/Psychiatric: positive: Disoriented to time (Leg weakness, chronic) - LABS Result Diagrams: 01/01/21 05:51 01/01/21 05:51 - DIAGNOSTIC IMAGING Diagnostic Imaging Results: Final report reviewed - TIME SPENT Time Spent in Discharge (Minutes): 45
[2021-01-02 16:03] VITALS: BP 142/83
--- NOTE | 2021-01-02 16:26 | Discharge Plan ---
Discharge Plan for SNF / [facility] - Discharge Plan And Transition Orders Problem Reviewed?: Yes Disposition: 03 SNF DC/Xfer Condition: Stable Allergies and Adverse Reactions: Allergies Allergy/AdvReac Type Severity Reaction Status Date / Time nystatin Allergy Unknown Verified 12/30/20 12:59 Penicillins Allergy Unknown Verified 12/30/20 12:59 Health Concerns: Patient admitted with altered mental status (unresponsive) probably due UTI and Hyponatremia. She received IV meropenem while here for her ESBL E. coli and her Proteus bacteria growing in the urine culture. Her mental status has improved to its baseline. Plan of Treatment: Plan is to complete a course of antibiotics for the UTI, at [facility], and resume all her usual medications. Care Goals: Improvement in symptoms and stabilization are the goals. Assessment: Orders written to return to [facility]. - SNF / [facility] Transition Orders Admit to (Facility): see other SNF/[facility] plan, same date Medicare Certification Statement: I certify that Post Hospital detention care is medically necessary on a continuing basis for any of the conditions for which she/he is receiving care during hospitalization. Notify PCP of admission and forward orders to primary provider for signature. Other Notification Orders: Call PCP immediately if patient develops dyspnea, chest pain/tightness or edema. Additional Bowel Program Orders: If no BM after 2 days, nurse may give M.O.M. 30ml PO PRN and/or ducolax Supp 1 OK and/or JAIR 250mg P.O., and/or senna 1-2 tabs PO. On day 3 nurse may give repeat above order until residents constipation is resolved. Medication Orders: PLEASE REFER TO THE DISCHARGE MEDICATION LIST. - Diet Type: Geriatric
== END 2021-01-02 16:19 ==
LOC: EDUNIT# → ED 12:45 → MS2 14:56
PROVIDERS: ADMIT Internal Medicine; ATTEND Internal Medicine
DX: R40.4 Transient alteration of awareness (principal); T83.511A Infection and inflammatory reaction due to indwelling urethral catheter, initial encounter; N39.0 Urinary tract infection, site not specified; B96.20 Unspecified Escherichia coli [E. coli] as the cause of diseases classified elsewhere; B96.4 Proteus (mirabilis) (morganii) as the cause of diseases classified elsewhere; E87.1 Hypo-osmolality and hyponatremia; D72.829 Elevated white blood cell count, unspecified; G35 Multiple sclerosis; F32.9 Major depressive disorder, single episode, unspecified; F41.9 Anxiety disorder, unspecified; F03.90 Unspecified dementia, unspecified severity, without behavioral disturbance, psychotic disturbance, mood disturbance, and anxiety; N20.0 Calculus of kidney; E78.00 Pure hypercholesterolemia, unspecified; G62.9 Polyneuropathy, unspecified; G89.29 Other chronic pain; Z66 Do not resuscitate; R32 Unspecified urinary incontinence; Z20.822 Contact with and (suspected) exposure to COVID-19; Z87.891 Personal history of nicotine dependence; Z99.3 Dependence on wheelchair; Z79.82 Long term (current) use of aspirin; Z79.891 Long term (current) use of opiate analgesic; Z79.51 Long term (current) use of inhaled steroids; Z79.899 Other long term (current) drug therapy
CPT/HCPCS: 36415; 70450; 71045; 74177; 80048; 80053; 81001; 82140; 82550; 83605; 83690; 83735; 84443; 84484; 85025; 87040; 87631; 93005; 93306; 96365; 96366; 96372; 96375; 99284; 99285; A6250; A9270; G0378; J1650; J2060; J2185; Q9967; 0202U; 81003; 87086

== ENCOUNTER 2021-01-17 10:20 | Outpatient (CLI) | payer MEDICARE, MEDICAID ==
[2021-01-17 11:38] LABS: CALCIUM 8.7 mg/dL (8.5-10.3); CREATININE 0.3 mg/dL (0.4-1.0); POTASSIUM 2.9 mmol/L (3.5-5.0)
[2021-01-17 11:52] LABS: BILIRUBIN,URINE NEGATIVE (NEGATIVE); GLUCOSE, URINE (UA) NEGATIVE (NEGATIVE); KETONES,URINE (UA) NEGATIVE (NEGATIVE); LEUKOCYTE ESTERASE, URINE LARGE (NEGATIVE); NITRITE,URINE POSITIVE (NEGATIVE); OCCULT BLOOD,URINE TRACE-INTA (NEGATIVE); PH,URINE >=9.0 PH (5.0-7.5); PROTEIN,URINE NEGATIVE (NEGATIVE); UROBILINOGEN,URINE 0.2 (NORMAL) E.U./dL (NORMAL)
[2021-01-17 11:55] LABS: CLARITY,URINE CLOUDY (CLEAR)
[2021-01-17 12:12] LABS: BACTERIA,URINE Moderate /HPF (None Seen); EPITHELIAL CELLS,UR RARE Transitional /HPF (<= Few); RBC,URINE 0-5 /HPF (0-5); SQUAMOUS EPITHELIAL CELL,UR NONE SEEN (<= Few)
[2021-01-17 12:13] LABS: AMORPHOUS SEDIMENT,UR Moderate /LPF
[2021-01-17 12:14] LABS: CRYSTALS,URINE >50 Triple Phos /LPF
== END 2021-01-17 23:59 | disposition home or self-care (01) ==
LOC: LAB.R 10:20
DX: N39.0 Urinary tract infection, site not specified (principal); I10 Essential (primary) hypertension; D64.9 Anemia, unspecified
CPT/HCPCS: 80048; 81001; 81003; 85025; 87077; 87086; 87181

== ENCOUNTER 2021-01-18 19:10 | Outpatient (CLI) | payer MEDICARE, MEDICAID ==
[2021-01-18 20:22] LABS: BASOPHILS # (AUTO) 0.1 10^3/uL (0.0-0.1); BASOPHILS % (AUTO) 0.6 %; EOSINOPHILS # (AUTO) 0.4 10^3/uL (0.0-0.7); EOSINOPHILS % (AUTO) 2.9 %; HCT - HEMATOCRIT 34.5 % (37.0-47.0); HGB - HEMOGLOBIN 10.6 g/dL (12.0-16.0); LYMPHOCYTES % (AUTO) 20.7 %; MEAN CORPUSCULAR HEMOGLOBIN 26.4 pg (27.0-31.0); MEAN CORPUSCULAR HGB CONC 30.7 g/dL (32.0-36.0); MEAN PLATELET VOLUME 10.3 fL (7.9-10.8); MONOCYTES # (AUTO) 0.9 10^3/uL (0.0-1.0); MONOCYTES % (AUTO) 6.2 %; NEUTROPHILS # (AUTO) 9.8 10^3/uL (1.5-6.6); NEUTROPHILS % (AUTO) 69.1 %; PLT - PLATELET COUNT 430 10^3/uL (130-450); RED BLOOD COUNT 4.01 10^6/uL (4.20-5.40); RED CELL DISTRIBUTION WIDTH 14.6 % (12.0-15.0); WHITE BLOOD COUNT 14.2 x10^3/uL (4.8-10.8)
== END 2021-01-18 23:59 | disposition home or self-care (01) ==
LOC: LAB.R 19:10
DX: D64.9 Anemia, unspecified (principal); E87.6 Hypokalemia; E78.5 Hyperlipidemia, unspecified
CPT/HCPCS: 85025

== ENCOUNTER 2021-01-26 12:27 | Outpatient (CLI) | payer MEDICARE, MEDICAID | END 2021-01-26 12:28 | disposition critical access hospital (66) | LOC: EMS 12:27 | DX: R40.4 Transient alteration of awareness (principal) | CPT/HCPCS: A0425; A0427 ==

== ENCOUNTER 2021-01-26 12:31 | Emergency (ER) | payer MEDICARE, MEDICAID ==
--- NOTE | 2021-01-26 13:26 | ED Physician Documentation ---
PD HPI ALTERED MENTAL STATUS - Stated complaint Stated Complaint: AMS - Chief complaint Chief Complaint: UTI - History obtained from History obtained from: Patient, EMS - Additional information Additional information: 1-year-old woman with multiple sclerosis, bedbound with chronic indwelling Good presents by ambulance after an episode of lethargy. It appears this is not uncommon for her. Similar admission last month. She complains of suprapubic pain. No reported fevers. Note made that she had a positive urine culture on January 17 for proteus sensitive to zosyn, ertapenem and cephalosporins. Not clear on the paperwork that accompanies her if this was treated. Further history from SAI Pineda at [facility]. She was syncopal for about 15 minutes at around noon today, it should be noted that she had a positive urine culture on January 17 and no antibiotics were given at that time, presume thought process was related to asymptomatic bacteriuria given chronic indwelling Good. 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: Fibroids : Incontinence, Chronic bladder infection HEENT: None Psych: Depression, Anxiety Musculoskeletal: Other Derm: Other - Past Surgical History Past Surgical History: Yes General: Colonoscopy Ortho: Other - Present Medications Home Medications: Ambulatory Orders Medication Instructions Recorded Confirmed Acetaminophen [Tylenol Extra 500 - 1,000 mg PO Q6HR PRN 01/28/18 01/26/21 Strength] Aspirin [Adult Aspirin] 81 mg PO DAILY 01/28/18 01/26/21 Bisacodyl Supp [Dulcolax Supp] 1 supp TN DAILY PRN 01/28/18 01/26/21 Cholecalciferol (Vitamin D3) 2,000 unit PO DAILY 01/28/18 01/26/21 [Vitamin D3] polyethylene glycoL 3350 [Miralax] 17 gm PO DAILY 01/28/18 01/26/21 Baclofen 10 mg PO TID 08/04/18 01/26/21 Calcium Carbonate [Tums (Calcium 1,000 mg PO Q4HR PRN 11/09/18 01/26/21 Carbonate 500mg)] DULoxetine [Cymbalta] 60 mg PO DAILY 11/09/18 01/26/21 Ferrous Gluconate [Iron] 240 mg PO DAILY 11/09/18 01/26/21 Gabapentin 100 mg PO DAILY 11/09/18 01/26/21 Gabapentin [Neurontin] 300 mg PO HS 11/09/18 01/26/21 Lovastatin 10 mg PO QPM 11/09/18 01/26/21 Naloxone HCl 0.1 ml SLY PRN PRN 11/09/18 01/26/21 Sennosides [Senna Lax] 8.6 mg PO BID 06/07/19 01/26/21 Albuterol Sulf [Ventolin Hfa 2 puffs INH Q4H PRN 08/23/20 01/26/21 Inhaler] Fluticasone/Salmeterol [Advair Hfa 1 puffs IH BID 12/30/20 01/26/21 115-21 Mcg Inhaler] Oxybutynin Chloride [Ditropan Xl] 5 mg PO DAILY 12/30/20 01/26/21 Potassium Chloride [Micro-K] 40 meq PO DAILY 12/30/20 01/26/21 hydroCHLOROthiazide 50 mg PO DAILY 12/30/20 01/26/21 [Hydrochlorothiazide] fentaNYL [Fentanyl 25mcg patch] 1 each TD Q3D 12/31/20 01/26/21 Cefdinir 300 mg PO BID #20 cap 01/26/21 D-Mannose [Azo D-Mannose] 500 mg PO DAILY PM 01/26/21 01/26/21 - Allergies Allergies/Adverse Reactions: Allergies Allergy/AdvReac Type Severity Reaction Status Date / Time nystatin Allergy Unknown Verified 01/26/21 12:43 Penicillins Allergy Unknown Verified 01/26/21 12:43 - Social History Does the pt smoke?: No Smoking Status: Never smoker Does the pt drink ETOH?: No Does the pt have substance abuse?: No - Immunizations Immunizations are current?: Yes - POLST Patient has POLST: Yes POLST Status: DNR PD ED PE NORMAL - Vitals Vital signs reviewed: Yes - General General: Other (Somnolent but arousable) - HEENT HEENT: PERRL, EOMI - Neck Neck: Supple, no meningeal sign, No bony TTP - Cardiac Cardiac: RRR, No murmur - Respiratory Respiratory: No respiratory distress, Clear bilaterally - Abdomen Abdomen: Normal bowel sounds, Soft, Other (Mild suprapubic tenderness, Good in place growing relatively clear urine) - Back Back: No CVA TTP - Neuro Eye Opening: Spontaneous Motor: Obeys Commands Results - Vitals Vitals: Vital Signs - 24 hr 01/26/21 01/26/21 12:36 14:43 Temperature 36.7 C 36.7 C Heart Rate 66 70 Respiratory 16 12 Rate Blood Pressure 138/79 H 109/71 O2 Saturation 98 96 Oxygen O2 Source Room air - EKG (time done) 1351 Rate: Rate (enter#) (54) Rhythm: NSR Many: Normal Intervals: Normal TN QRS: Low voltage Ischemia: Normal ST segments - Labs Labs: Laboratory Tests 01/26/21 01/26/21 14:26 14:26 WBC 10.7 RBC 3.94 L Hgb 10.4 L Hct 34.5 L MCV 87.6 MCH 26.4 L MCHC 30.1 L RDW 15.2 H Plt Count 487 H MPV 9.8 Neut # (Auto) 6.3 Lymph # (Auto) 3.0 [place] # (Auto) 0.9 Eos # (Auto) 0.5 Baso # (Auto) 0.1 Absolute Nucleated RBC 0.00 Nucleated RBC % 0.0 Sodium 142 Potassium 3.6 Chloride 95 L Carbon Dioxide 36 H Anion Gap 11.0 BUN 16 Creatinine < 0.3 L Estimated GFR (MDRD) Not Reportable Glucose 86 Calcium 9.1 PD MEDICAL DECISION MAKING - ED course ED course: 70-year-old woman presents with episode of somnolence/syncope at longterm facility. Here she is somnolent but easily arousable and conversant. She does have suprapubic tenderness, so we will treat the positive urine culture from 9 days ago. Cephalosporins seem reasonable given the urine culture. Also give her a little bit of IV fluids and check some basic labs and EKG given the syncopal episode. Slightly somnolent here but otherwise well with borderline leukocytosis, baseline anemia, no other diagnostic findings of concern. Departure - Departure Disposition: Home, Self Care Clinical Impression: Pyelonephritis, Multiple sclerosis Condition: Good Record reviewed to determine appropriate education?: Yes Instructions: Pyelonephritis Dc Prescriptions: Cefdinir 300 mg PO BID #20 cap Comments: I am treating the urinalysis/culture from December 18., That was notable for Proteus isolate that was sensitive to ertapenem, Zosyn, and all of the cephalosporins. She had a dose of IV ceftriaxone here, does not need any more antibiotics till tomorrow. Return if worsening.
[2021-01-26] MEDS ORDERED: cefTRIAXone 1 GM in SODIUM CHLORIDE 0.9% MINIBAG 100 ML IV STA (13:31)
[2021-01-26 14:32] LABS: BASOPHILS # (AUTO) 0.1 10^3/uL (0.0-0.1); BASOPHILS % (AUTO) 0.7 %; EOSINOPHILS # (AUTO) 0.5 10^3/uL (0.0-0.7); EOSINOPHILS % (AUTO) 4.5 %; HCT - HEMATOCRIT 34.5 % (37.0-47.0); HGB - HEMOGLOBIN 10.4 g/dL (12.0-16.0); LYMPHOCYTES % (AUTO) 27.9 %; MEAN CORPUSCULAR HEMOGLOBIN 26.4 pg (27.0-31.0); MEAN CORPUSCULAR HGB CONC 30.1 g/dL (32.0-36.0); MEAN CORPUSCULAR VOLUME 87.6 fL (81.0-99.0); MEAN PLATELET VOLUME 9.8 fL (7.9-10.8); MONOCYTES # (AUTO) 0.9 10^3/uL (0.0-1.0); MONOCYTES % (AUTO) 8.2 %; NEUTROPHILS # (AUTO) 6.3 10^3/uL (1.5-6.6); NEUTROPHILS % (AUTO) 58.4 %; PLT - PLATELET COUNT 487 10^3/uL (130-450); RED BLOOD COUNT 3.94 10^6/uL (4.20-5.40); RED CELL DISTRIBUTION WIDTH 15.2 % (12.0-15.0); WHITE BLOOD COUNT 10.7 x10^3/uL (4.8-10.8)
[2021-01-26 14:47] LABS: BUN - BLOOD UREA NITROGEN 16 mg/dL (6-20); CALCIUM 9.1 mg/dL (8.5-10.3); CARBON DIOXIDE - CO2 36 mmol/L (21-32); CHLORIDE 95 mmol/L (101-111); GLUCOSE 86 mg/dL (70-100); POTASSIUM 3.6 mmol/L (3.5-5.0); SODIUM 142 mmol/L (135-145)
[2021-01-26 14:49] LABS: CREATININE < 0.3 mg/dL (0.4-1.0)
[2021-01-26 15:44] VITALS: BP 105/77
== END 2021-01-26 16:14 | disposition home or self-care (01) ==
LOC: EDUNIT# → ED 12:31
DX: N12 Tubulo-interstitial nephritis, not specified as acute or chronic (principal); R55 Syncope and collapse; R40.0 Somnolence; G35 Multiple sclerosis; Z74.01 Bed confinement status; D64.9 Anemia, unspecified; Z79.82 Long term (current) use of aspirin; Z66 Do not resuscitate
CPT/HCPCS: 36415; 80048; 85025; 93005; 96365; 99281

== ENCOUNTER 2021-01-26 16:16 | Outpatient (CLI) | payer MEDICARE, MEDICAID | END 2021-01-26 16:17 | disposition home or self-care (01) | LOC: EMS 16:16 | PROVIDERS: ATTEND Emergency Medicine | DX: G35 Multiple sclerosis (principal) | CPT/HCPCS: A0425; A0428 ==

== ENCOUNTER 2021-02-04 07:00 | Outpatient (CLI) | payer MEDICARE, MEDICAID ==
[2021-02-04 15:22] LABS: CALCIUM 8.6 mg/dL (8.5-10.3); CREATININE 0.4 mg/dL (0.4-1.0); POTASSIUM 3.6 mmol/L (3.5-5.0)
== END 2021-02-04 23:59 | disposition home or self-care (01) ==
LOC: LAB.R 07:00
DX: E87.6 Hypokalemia (principal)
CPT/HCPCS: 80048

== ENCOUNTER 2021-02-22 13:27 | Outpatient (CLI) | payer MEDICARE, MEDICAID | END 2021-02-22 13:28 | disposition critical access hospital (66) | LOC: EMS 13:27 | DX: R10.30 Lower abdominal pain, unspecified (principal) | CPT/HCPCS: A0425; A0427 ==

== ENCOUNTER 2021-02-22 13:34 | Emergency (ER) | payer MEDICARE, MEDICAID ==
[2021-02-22 13:56] LABS: BASOPHILS # (AUTO) 0.1 10^3/uL (0.0-0.1); BASOPHILS % (AUTO) 0.7 %; EOSINOPHILS # (AUTO) 0.8 10^3/uL (0.0-0.7); EOSINOPHILS % (AUTO) 6.3 %; HCT - HEMATOCRIT 33.7 % (37.0-47.0); HGB - HEMOGLOBIN 9.9 g/dL (12.0-16.0); LYMPHOCYTES # (AUTO) 2.8 10^3/uL (1.5-3.5); LYMPHOCYTES % (AUTO) 23.3 %; MEAN CORPUSCULAR HEMOGLOBIN 25.9 pg (27.0-31.0); MEAN CORPUSCULAR HGB CONC 29.4 g/dL (32.0-36.0); MEAN CORPUSCULAR VOLUME 88.2 fL (81.0-99.0); MEAN PLATELET VOLUME 9.6 fL (7.9-10.8); MONOCYTES # (AUTO) 0.9 10^3/uL (0.0-1.0); MONOCYTES % (AUTO) 7.5 %; NEUTROPHILS # (AUTO) 7.4 10^3/uL (1.5-6.6); NEUTROPHILS % (AUTO) 61.9 %; PLT - PLATELET COUNT 388 10^3/uL (130-450); RED BLOOD COUNT 3.82 10^6/uL (4.20-5.40); RED CELL DISTRIBUTION WIDTH 16.2 % (12.0-15.0)
[2021-02-22 14:11] LABS: ALBUMIN 3.3 g/dL (3.2-5.5); ALBUMIN/GLOBULIN RATIO 0.7 (1.0-2.2); BILIRUBIN,TOTAL 0.3 mg/dL (0.2-1.0); CALCIUM 9.1 mg/dL (8.5-10.3); CREATININE 0.3 mg/dL (0.4-1.0); POTASSIUM 3.2 mmol/L (3.5-5.0)
[2021-02-22 14:18] LABS: BILIRUBIN,URINE NEGATIVE (NEGATIVE); GLUCOSE, URINE (UA) NEGATIVE (NEGATIVE); KETONES,URINE (UA) NEGATIVE (NEGATIVE); LEUKOCYTE ESTERASE, URINE MODERATE (NEGATIVE); NITRITE,URINE POSITIVE (NEGATIVE); OCCULT BLOOD,URINE SMALL (NEGATIVE); PH,URINE 8.5 PH (5.0-7.5); PROTEIN,URINE 30 mg/dL (NEGATIVE); UROBILINOGEN,URINE 0.2 (NORMAL) E.U./dL (NORMAL)
[2021-02-22 14:28] LABS: CLARITY,URINE CLEAR (CLEAR)
--- NOTE | 2021-02-22 14:29 | ED Physician Documentation ---
History of Present Illness - Stated complaint Stated Complaint: ABD PX - Chief complaint Chief Complaint: Abd Pain - Additonal information Additional information: 70-year-old female who has a past medical history multiple sclerosis, chronic pain on fentanyl patches, recurrent urinary tract infections with a chronic indwelling Christensen catheter presents the emergency department for evaluation of lower abdominal pain and reported lack of bowel movement for at least several weeks. Patient has been admitted to this hospital in late December after a syncopal episode as well as for evaluation of a urinary tract infection. Having her Christensen cathet er exchanged on a schedule at her care facility. She completed a course of cefdinir in early January for UTI. hx of proteus and ESBL e-cli. Pt is not having fevers, vomiting Review of Systems Unable to obtain: Other (chart) Constitutional: denies: Fever, Chills Throat: reports: Reviewed and negative Cardiac: reports: Reviewed and negative Respiratory: reports: Reviewed and negative GI: reports: Abdominal Pain, Constipation. 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: Fibroids : Incontinence, Chronic bladder infection HEENT: None Psych: Depression, Anxiety Musculoskeletal: Other Derm: Other - Past Surgical History Past Surgical History: Yes General: Colonoscopy Ortho: Other - Present Medications Home Medications: Ambulatory Orders Medication Instructions Recorded Confirmed Acetaminophen [Tylenol Extra 500 - 1,000 mg PO Q6HR PRN 01/28/18 02/22/21 Strength] Aspirin [Adult Aspirin] 81 mg PO DAILY 01/28/18 02/22/21 Bisacodyl Supp [Dulcolax Supp] 1 supp WI DAILY PRN 01/28/18 02/22/21 Cholecalciferol (Vitamin D3) 2,000 unit PO DAILY 01/28/18 02/22/21 [Vitamin D3] polyethylene glycoL 3350 [Miralax] 17 gm PO DAILY 01/28/18 02/22/21 Baclofen 10 mg PO TID 08/04/18 02/22/21 Calcium Carbonate [Tums (Calcium 1,000 mg PO Q4HR PRN 11/09/18 02/22/21 Carbonate 500mg)] DULoxetine [Cymbalta] 60 mg PO DAILY 11/09/18 02/22/21 Ferrous Gluconate [Iron] 240 mg PO DAILY 11/09/18 02/22/21 Gabapentin 100 mg PO DAILY 11/09/18 02/22/21 Gabapentin [Neurontin] 300 mg PO HS 11/09/18 02/22/21 Lovastatin 10 mg PO QPM 11/09/18 02/22/21 Naloxone HCl 0.1 ml SLY PRN PRN 11/09/18 02/22/21 Sennosides [Senna Lax] 8.6 mg PO BID 06/07/19 02/22/21 Albuterol Sulf [Ventolin Hfa 2 puffs INH Q4H PRN 08/23/20 02/22/21 Inhaler] Fluticasone/Salmeterol [Advair Hfa 1 puffs IH BID 12/30/20 02/22/21 115-21 Mcg Inhaler] Oxybutynin Chloride [Ditropan Xl] 5 mg PO DAILY 12/30/20 02/22/21 Potassium Chloride [Micro-K] 40 meq PO DAILY 12/30/20 02/22/21 hydroCHLOROthiazide 50 mg PO DAILY 12/30/20 02/22/21 [Hydrochlorothiazide] fentaNYL [Fentanyl 25mcg patch] 1 each TD Q3D 12/31/20 02/22/21 D-Mannose [Azo D-Mannose] 500 mg PO DAILY PM 01/26/21 02/22/21 Mineral Oil [Mineral Oil Enema] 1 ea RC DAILY #133 ml 02/22/21 polyethylene glycoL 3350 [Miralax] 17 gm PO BID #1 bottle 02/22/21 - Allergies Allergies/Adverse Reactions: Allergies Allergy/AdvReac Type Severity Reaction Status Date / Time nystatin Allergy Unknown Verified 01/26/21 12:43 Penicillins Allergy Unknown Verified 01/26/21 12:43 - Social History Does the pt smoke?: No Smoking Status: Never smoker Does the pt drink ETOH?: No Does the pt have substance abuse?: No - Immunizations Immunizations are current?: Yes - POLST Patient has POLST: Yes POLST Status: DNR PD ED PE EXPANDED - General General: Alert, No acute distress - Cardiac Cardiac: Regular Rate, Radial strong equal - Respiratory Respiratory: Clear to ausultation greyson. No: Distress - Abdomen Abdomen: Decreased BS, Tender to palpation (mild tenderness left side abdomen, no guarding or rebound). No: Suprapubic - Back Back: Normal exam. No: Vertebral tenderness, Soft tissue tenderness - Derm Derm: Normal color, Warm and dry. No: Rash - Extremities Extremities: Normal, Deformity, Pedal edema bilateral, Pedal Pulses Present. No: Right calf TTP/cord, Left calf TTP/cord - Neuro Neuro: Alert and Oriented X 3, CNII-XII intact - GCS Eye Opening: Spontaneous Motor: Obeys Commands Verbal: Oriented Total: 15 Results - Vitals Vitals: Vital Signs - 24 hr 02/22/21 02/22/21 02/22/21 13:42 14:41 15:38 Temperature 37.0 C Heart Rate 72 73 76 Respiratory 16 20 16 Rate Blood Pressure 99/74 96/55 L 114/51 L O2 Saturation 92 97 95 Oxygen O2 Source Room air - Labs Labs: Laboratory Tests 02/22/21 02/22/21 02/22/21 13:50 13:50 14:05 WBC 12.0 H RBC 3.82 L Hgb 9.9 L Hct 33.7 L MCV 88.2 MCH 25.9 L MCHC 29.4 L RDW 16.2 H Plt Count 388 MPV 9.6 Neut # (Auto) 7.4 H Lymph # (Auto) 2.8 [place] # (Auto) 0.9 Eos # (Auto) 0.8 H Baso # (Auto) 0.1 Absolute Nucleated RBC 0.00 Nucleated RBC % 0.0 Sodium 139 Potassium 3.2 L Chloride 94 L Carbon Dioxide 35 H Anion Gap 10.0 BUN 20 Creatinine 0.3 L Estimated GFR (MDRD) 219 Glucose 113 H Calcium 9.1 Total Bilirubin 0.3 AST 14 ALT 12 Alkaline Phosphatase 96 Total Protein 8.0 Albumin 3.3 Globulin 4.7 H Albumin/Globulin Ratio 0.7 L Lipase 24 Urine Color YELLOW Urine Clarity CLEAR Urine pH 8.5 H Ur Specific [place] 1.015 Urine Protein 30 H Urine Glucose (UA) NEGATIVE Urine Ketones NEGATIVE Urine Occult Blood SMALL H Urine Nitrite POSITIVE H Urine Bilirubin NEGATIVE Urine Urobilinogen 0.2 (NORMAL) Ur Leukocyte Esterase MODERATE H Urine RBC 0-5 Urine WBC 6-10 H Ur Squamous Epith Cells NONE SEEN Urine Crystals 11-25 Triple Phos Amorphous Sediment Moderate Urine Bacteria Moderate H Ur Microscopic Review INDICATED Urine Culture Comments INDICATED - Rads (name of study) CT abd Radiology: Final report received (Diffuse prominence of stool throughout the colon. This is suggestive of constipation. No free fluid no small bowel obstruction. No hydronephrosis. Suspect nonobstructing right kidney stone. Mild bronchiectasis. Fibroid uterus.) PD MEDICAL DECISION MAKING - ED course Complexity details: reviewed results ED course: 70 year old old female here with cc of constipation for many weeks. hx of chronic opioid use (fentanyl patches) secondary to chronic pain. appears to have a bowel regmine at [facility]. Urinalysis was sent on reflex with order sets. Urine is a contaminated specimen given that she has a chronic indwelling Christensen catheter. No treatment indicated today. Screening labs show a mild leukocytosis of just about 12,000. A CT abdomen pelvis shows significant constipation throughout her colon but no secondary findings of obstruction. This patient has a longstanding history of opioid use as well as a neurogenic bladder and colon. She is currently taking MiraLAX. I will recommend that she increase MiraLAX to twice daily as well as do twice daily mineral enemas. Continue close follow-up with primary care provider. Given the history of the opioid use, amitiza May be indicated for opioid-induced constipation. Will recommend close follow-up with primary care provider. Emergent return precautions discussed for signs and symptoms of bowel obstruction. Departure - Departure Disposition: 01 Home, Self Care Clinical Impression: Constipation due to opioid therapy Condition: Stable Record reviewed to determine appropriate education?: Yes Instructions: ED Constipation Prescriptions: Mineral Oil [Mineral Oil Enema] 1 ea RC DAILY #133 ml polyethylene glycoL 3350 [Miralax] 17 gm PO BID #1 bottle Comments: Kenisha you are seen in the emergency department for lower abdominal pain and lack of bowel movement. The CT scan shows significant stool throughout your colon. Please take the MiraLAX twice daily. You should also be given mineral fleets enemas twice daily until you have adequate bowel movements. Because you are on opioids for pain management this can cause severe constipation. Your primary care provider may want to prescribe a medication called Amitiza that can be used in the treatment of this type of constipation. If at any point you develop fevers, have uncontrolled vomiting, or suddenly severe or different abdominal pain return to the emergency department.
[2021-02-22 14:37] LABS: AMORPHOUS SEDIMENT,UR Moderate /LPF; BACTERIA,URINE Moderate /HPF (None Seen); CRYSTALS,URINE 11-25 Triple Phos /LPF; RBC,URINE 0-5 /HPF (0-5); SQUAMOUS EPITHELIAL CELL,UR NONE SEEN (<= Few)
[2021-02-22] MEDS ORDERED: SODIUM CHLORIDE 0.9% 1,000 ML IV STA ×2 (15:07)
[2021-02-22] MEDS ORDERED: IOPAMIDOL-300 100 ML VIAL ONE (15:15)
[2021-02-22] MEDS ORDERED: IOPAMIDOL-300 100 ML VIAL IVP ONE (15:26)
--- NOTE | 2021-02-22 15:54 | CT Report ---
PROCEDURE: Abdomen/Pelvis W INDICATIONS: lower abdominal pain CONTRAST: IV CONTRAST: Isovue 300 ml: 100 PO CONTRAST: *NO PO CONTRAST TECHNIQUE: After the administration of intravenous contrast, 5 mm thick sections acquired from the diaphragms to the symphysis. 5 mm thick coronal and sagittal reformats were acquired. For radiation dose reducti on, the following was used: automated exposure control, adjustment of mA and/or kV according to devon ent size. COMPARISON: CT abdomen and pelvis 12/30/2020, 03/18/2018. FINDINGS: Image quality: Excellent. ABDOMEN: Lung bases: Mild bronchiectasis. Mild dependent opacity at the lung bases. No significant pleural eff usion. Heart size is normal. Solid organs: Liver and spleen are normal in size and enhancement. Gallbladder is not distended. In creased conspicuity of the gallbladder wall. No calcified gallstones seen. Biliary system is non dil ated. Pancreas enhances normally. Left adrenal nodule measuring 1.9 cm, (10/05) previously 2 cm, prev iously 1.9 cm in 2018. Kidneys demonstrate normal size and enhancement, without hydronephrosis. Susp ect nonobstructing calculus in the inferior pole the right kidney measuring 0.5 cm. Peritoneum and bowel: No small bowel obstruction. There is prominent stool throughout the colon. Nodes and vessels: No retroperitoneal or mesenteric adenopathy by size criteria. Aorta and inferior vena cava are normal in size. Moderate calcified atherosclerotic plaque. Miscellaneous: No ventral hernias. PELVIS: Genitourinary: Bladder is decompressed with Good catheter. Small focus of gas within the urinary marisel dder. High density material layering at the base of the bladder. Enlarged fibroid uterus. Several of the fibroids are calcified. Miscellaneous: No inguinal hernias or adenopathy. Bones: No suspicious bony lesions. No vertebral body compression fractures. Generator device at the anterior left abdomen/pelvis with thoracic thecal lead. Thickening adjacent to the right hip is unch anged. IMPRESSION: 1. There is diffuse prominence of stool throughout the colon. This is suggestive of constipation. 2. No free fluid. No small bowel obstruction. 3. There is a scant amount of high density material layering in the urinary bladder. This could repre sent calcific excreted contrast versus calcific debris. Chronic Good catheter. 4. No hydronephrosis. Suspect nonobstructing right kidney stone. 5. Mild bronchiectasis. 6. Fibroid uterus. Reviewed by: Juan Cabral MD on 02/22/2021 3:53 PM PDT Approved by: Juan Cabral MD on 02/22/2021 3:53 PM PDT Station ID: [id number]
[2021-02-22 16:42] VITALS: BP 120/70
== END 2021-02-22 16:55 | disposition home or self-care (01) ==
LOC: EDUNIT# → ED 13:34
DX: K59.03 Drug induced constipation (principal); T40.2X5A Adverse effect of other opioids, initial encounter; G89.29 Other chronic pain
CPT/HCPCS: 36415; 74177; 80053; 81001; 83690; 85025; 99283; 99284; Q9967; 81003; 87086

== ENCOUNTER 2021-02-22 16:55 | Outpatient (CLI) | payer MEDICARE, MEDICAID | END 2021-02-22 16:56 | disposition home or self-care (01) | LOC: EMS 16:55 | PROVIDERS: ATTEND Emergency Medicine | DX: Z74.01 Bed confinement status (principal) | CPT/HCPCS: A0425; A0428 ==

== ENCOUNTER 2021-03-06 14:57 | Outpatient (CLI) | payer MEDICARE, MEDICAID ==
[2021-03-06 15:06] LABS: BASOPHILS % (AUTO) 0.5 %; EOSINOPHILS % (AUTO) 1.2 %; HCT - HEMATOCRIT 32.5 % (37.0-47.0); HGB - HEMOGLOBIN 10.1 g/dL (12.0-16.0); LYMPHOCYTES % (AUTO) 8.5 %; MEAN CORPUSCULAR HEMOGLOBIN 26.4 pg (27.0-31.0); MEAN CORPUSCULAR HGB CONC 31.1 g/dL (32.0-36.0); MEAN CORPUSCULAR VOLUME 85.1 fL (81.0-99.0); MEAN PLATELET VOLUME 10.2 fL (7.9-10.8); NEUTROPHILS % (AUTO) 81.2 %; PLT - PLATELET COUNT 466 10^3/uL (130-450); RED BLOOD COUNT 3.82 10^6/uL (4.20-5.40); RED CELL DISTRIBUTION WIDTH 15.7 % (12.0-15.0); WHITE BLOOD COUNT 24.3 x10^3/uL (4.8-10.8)
[2021-03-06 15:08] LABS: ABNORMAL LYMPHS % (MANUAL) 0 %; BAND NEUTROPHILS % (MANUAL) 0 %
[2021-03-06 15:22] LABS: CALCIUM 8.8 mg/dL (8.5-10.3); CREATININE 0.3 mg/dL (0.4-1.0)
[2021-03-06 15:31] LABS: BASOPHILS # (MANUAL) 0.2 10^3/uL (0-0.1); BASOPHILS % (MANUAL) 1 %; DIFFERENTIAL COMMENT MANUAL DIFFERENTIAL; EOSINOPHILS # (MANUAL) 0.2 10^3/uL (0-0.7); LYMPHOCYTES # (MANUAL) 2.4 10^3/uL (1.5-3.5); LYMPHOCYTES % (MANUAL) 10 %; NEUTROPHILS # (MANUAL) 20.4 10^3/uL (1.5-6.6); PLATELET ESTIMATE, MANUAL INCREASED (>450,000) (NORMAL); PLATELET MORPHOLOGY NORMAL APPEARANCE (NORMAL); RBC MORPHOLOGY (MULTIPLE) NORMAL APPEARANCE (NORMAL); WBC MORPHOLOGY (MULTIPLE) NORMAL APPEARANCE (NORMAL)
== END 2021-03-06 14:58 | disposition home or self-care (01) ==
LOC: LAB 14:57 → LAB.R 14:58
PROVIDERS: ATTEND Family Medicine
DX: E87.6 Hypokalemia (principal); E78.5 Hyperlipidemia, unspecified; E61.1 Iron deficiency; R31.9 Hematuria, unspecified; R25.2 Cramp and spasm
CPT/HCPCS: 80048; 82728; 85025

== ENCOUNTER 2021-04-01 20:11 | Outpatient (CLI) | payer MEDICARE, MEDICAID ==
[2021-04-01 23:45] LABS: BILIRUBIN,URINE NEGATIVE (NEGATIVE); GLUCOSE, URINE (UA) NEGATIVE (NEGATIVE); KETONES,URINE (UA) NEGATIVE (NEGATIVE); LEUKOCYTE ESTERASE, URINE SMALL (NEGATIVE); NITRITE,URINE NEGATIVE (NEGATIVE); OCCULT BLOOD,URINE LARGE (NEGATIVE); PROTEIN,URINE 100 mg/dL (NEGATIVE); UROBILINOGEN,URINE 0.2 (NORMAL) E.U./dL (NORMAL)
[2021-04-01 23:52] LABS: CLARITY,URINE HAZY (CLEAR)
[2021-04-01 23:53] LABS: BACTERIA,URINE Few /HPF (None Seen); RBC,URINE TNTC /HPF (0-5); SQUAMOUS EPITHELIAL CELL,UR RARE Squamous (<= Few); WBC,URINE >25 /HPF (0-5)
== END 2021-04-01 23:59 | disposition home or self-care (01) ==
LOC: LAB.R 20:11
PROVIDERS: ATTEND Family Medicine
DX: R31.9 Hematuria, unspecified (principal); N39.0 Urinary tract infection, site not specified
CPT/HCPCS: 81001; 81003; 87077; 87086; 87181

== ENCOUNTER 2021-05-20 14:43 | Outpatient (CLI) | payer MEDICARE, MEDICAID | END 2021-05-20 14:44 | disposition critical access hospital (66) | LOC: EMS 14:43 | DX: R41.82 Altered mental status, unspecified (principal); R10.30 Lower abdominal pain, unspecified | CPT/HCPCS: A0425; A0429 ==

== ENCOUNTER 2021-05-20 14:51 | Inpatient (IN) | payer MEDICARE, MEDICAID ==
[2021-05-20] MEDS ORDERED: SODIUM CHLORIDE 0.9% 1,000 ML IV STA ×2 (15:03)
--- NOTE | 2021-05-20 15:06 | ED Physician Documentation ---
PD HPI ALTERED MENTAL STATUS - Stated complaint Stated Complaint: AMS - Chief complaint Chief Complaint: Neuro - History obtained from History obtained from: Patient, EMS - History of Present Illness Timing - details: Gradual onset Quality / character: Less responsive, Confused Associated symptoms: Urinary sx (Chronic indwelling Christensen catheter). No: Fever, Dyspnea, Cough, NVD Basline status: Alert and oriented X 3 Recently seen: Not recently seen - Additional information Additional information: Patient is a 71-year-old female with a history of multiple sclerosis who is brought into the emergency department from [facility]. Reportedly she has been harder to wake up over the past 2 days and has had some altered mental status. No falls or trauma that the staff is aware of. She does have a chronic indwelling Christensen catheter. The patient states she has not been sleeping at night so has been sleeping during the day instead. Denies any abdominal pain, vomiting, diarrhea. When I asked the patient why she feels like she is sleeping during the day, she responded that she should not be sleeping during the day because she has to work. 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 Patient obviously is not employed as she is living in a snf. 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 : Incontinence, Chronic bladder infection HEENT: None Psych: Depression, Anxiety Musculoskeletal: Other Derm: Other - Past Surgical History Past Surgical History: Yes General: Colonoscopy Ortho: Other - Present Medications Home Medications: Ambulatory Orders Medication Instructions Recorded Confirmed Acetaminophen [Tylenol Extra 500 - 1,000 mg PO Q6HR PRN 01/28/18 02/22/21 Strength] Aspirin [Adult Aspirin] 81 mg PO DAILY 01/28/18 05/20/21 Bisacodyl Supp [Dulcolax Supp] 1 supp NV DAILY PRN 01/28/18 02/22/21 Cholecalciferol (Vitamin D3) 2,000 unit PO DAILY 01/28/18 05/20/21 [Vitamin D3] polyethylene glycoL 3350 [Miralax] 17 gm PO DAILY 01/28/18 02/22/21 Baclofen 10 mg PO TID 08/04/18 05/20/21 Calcium Carbonate [Tums (Calcium 1,000 mg PO Q4HR PRN 11/09/18 02/22/21 Carbonate 500mg)] DULoxetine [Cymbalta] 60 mg PO DAILY 11/09/18 05/20/21 Ferrous Gluconate [Iron] 240 mg PO DAILY 11/09/18 05/20/21 Gabapentin 100 mg PO DAILY 11/09/18 02/22/21 Gabapentin [Neurontin] 300 mg PO HS 11/09/18 02/22/21 Lovastatin 10 mg PO QPM 11/09/18 05/20/21 Naloxone HCl 0.1 ml SLY PRN PRN 11/09/18 02/22/21 Sennosides [Senna Lax] 8.6 mg PO BID 06/07/19 02/22/21 Albuterol Sulf [Ventolin Hfa 2 puffs INH Q4H PRN 08/23/20 02/22/21 Inhaler] Fluticasone/Salmeterol [Advair Hfa 1 puffs IH BID 12/30/20 05/20/21 115-21 Mcg Inhaler] Oxybutynin Chloride [Ditropan Xl] 5 mg PO DAILY 12/30/20 05/20/21 Potassium Chloride [Micro-K] 40 meq PO DAILY 12/30/20 05/20/21 hydroCHLOROthiazide 50 mg PO DAILY 12/30/20 05/20/21 [Hydrochlorothiazide] fentaNYL [Fentanyl 25mcg patch] 1 each TD Q3D 12/31/20 05/20/21 D-Mannose [Azo D-Mannose] 500 mg PO DAILY PM 01/26/21 05/20/21 Mineral Oil [Mineral Oil Enema] 1 ea RC DAILY #133 ml 02/22/21 polyethylene glycoL 3350 [Miralax] 17 gm PO BID #1 bottle 02/22/21 - Allergies Allergies/Adverse Reactions: Allergies Allergy/AdvReac Type Severity Reaction Status Date / Time nystatin Allergy Unknown Verified 05/20/21 15:00 Penicillins Allergy Unknown Verified 05/20/21 15:00 - Social History Does the pt smoke?: No Smoking Status: Never smoker Does the pt drink ETOH?: No Does the pt have substance abuse?: No - Immunizations Immunizations are current?: Yes - POLST Patient has POLST: Yes POLST Status: DNR PD ED PE NORMAL - Vitals Vital signs reviewed: Yes - General General: No acute distress, Other (drowsy, but arousable. 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, No motor deficit, No sensory deficit, Normal speech Eye Opening: Spontaneous Motor: Obeys Commands Verbal: Confused GCS Score: 14 - Psych Psych: Normal mood, Normal affect Results - Vitals Vitals: Vital Signs - 24 hr 05/20/21 05/20/21 05/20/21 15:00 15:19 16:51 Temperature 36.5 C Heart Rate 74 74 86 Respiratory 16 22 25 H Rate Blood Pressure 123/73 128/85 H 121/61 O2 Saturation 98 100 98 05/20/21 05/20/21 18:08 18:52 Temperature Heart Rate 72 76 Respiratory 11 L 14 Rate Blood Pressure 107/50 L 96/59 L O2 Saturation 100 96 Oxygen O2 Source Room air - EKG (time done) 1510 Rate: Rate (enter#) (78) Rhythm: NSR Marshall: Normal Intervals: Normal NV QRS: Normal Ischemia: Normal ST segments - Labs Labs: Laboratory Tests 05/20/21 05/20/21 05/20/21 15:15 15:15 15:15 WBC 16.3 H RBC 3.99 L Hgb 9.4 L Hct 32.5 L MCV 81.5 MCH 23.6 L MCHC 28.9 L RDW 16.6 H Plt Count 602 H MPV 9.0 Neut # (Auto) 12.1 H Lymph # (Auto) 2.8 Dukes # (Auto) 0.9 Eos # (Auto) 0.4 Baso # (Auto) 0.1 Absolute Nucleated RBC 0.00 Nucleated RBC % 0.0 Manual Slide Review Indicated WBC Morphology NORMAL APPEARANCE Platelet Estimate INCREASED (>450,000) Platelet Morphology 1+ GIANT PLATELETS RBC Morph Micro Appear 1+ POLYCHROMASIA Sodium 136 Potassium 3.5 Chloride 92 L Carbon Dioxide 33 H Anion Gap 11.0 BUN 17 Creatinine 0.3 L Estimated GFR (MDRD) 218 Glucose 127 H Lactic Acid Calcium 9.1 Total Bilirubin 0.6 AST 18 ALT 25 Alkaline Phosphatase 93 Total Protein 8.5 H Albumin 3.2 Globulin 5.3 H Albumin/Globulin Ratio 0.6 L Lipase 28 TSH 1.77 Urine Color Urine Clarity Urine pH Ur Specific [place] Urine Protein Urine Glucose (UA) Urine Ketones Urine Occult Blood Urine Nitrite Urine Bilirubin Urine Urobilinogen Ur Leukocyte Esterase Urine RBC Urine WBC Ur Squamous Epith Cells Urine Bacteria Ur Microscopic Review Urine Culture Comments Nasal Adenovirus (PCR) Nasal B. parapertussis DNA (PCR) Nasal Coronavir 229E PCR Nasal Coronavir HKU1 PCR Nasal Coronavir NL63 PCR Nasal Coronavir OC43 PCR Nasal Enterovir/Rhinovir PCR Nasal Influenza B PCR Nasal Influenza A PCR Nasal Parainfluen 1 PCR Nasal Parainfluen 2 PCR Nasal Parainfluen 3 PCR Nasal Parainfluen 4 PCR Nasal RSV (PCR) Nasal B.pertussis DNA PCR Nasal C.pneumoniae (PCR) Sly Human Metapneumo PCR Nasal M.pneumoniae (PCR) Nasal SARS-CoV-2 (PCR) Salicylates < 6.0 Urine Opiates Screen Ur Oxycodone Screen Urine Methadone Screen Ur Propoxyphene Screen Acetaminophen < 10 L Ur Barbiturates Screen Ur Tricyclics Screen Ur Phencyclidine Scrn Ur Amphetamine Screen U Methamphetamines Scrn U Benzodiazepines Scrn Urine Cocaine Screen U Cannabinoids Screen Ethyl Alcohol < 5.0 05/20/21 05/20/21 05/20/21 16:08 16:08 16:11 WBC RBC Hgb Hct MCV MCH MCHC RDW Plt Count MPV Neut # (Auto) Lymph # (Auto) Dukes # (Auto) Eos # (Auto) Baso # (Auto) Absolute Nucleated RBC Nucleated RBC % Manual Slide Review WBC Morphology Platelet Estimate Platelet Morphology RBC Morph Micro Appear Sodium Potassium Chloride Carbon Dioxide Anion Gap BUN Creatinine Estimated GFR (MDRD) Glucose Lactic Acid 1.1 Calcium Total Bilirubin AST ALT Alkaline Phosphatase Total Protein Albumin Globulin Albumin/Globulin Ratio Lipase TSH Urine Color LT. YELLOW Urine Clarity CLOUDY Urine pH 7.5 Ur Specific [place] 1.015 Urine Protein TRACE Urine Glucose (UA) NEGATIVE Urine Ketones NEGATIVE Urine Occult Blood LARGE H Urine Nitrite POSITIVE H Urine Bilirubin NEGATIVE Urine Urobilinogen 0.2 (NORMAL) Ur Leukocyte Esterase LARGE H Urine RBC 6-10 H Urine WBC >25 H Ur Squamous Epith Cells FEW Squamous Urine Bacteria Moderate H Ur Microscopic Review INDICATED Urine Culture Comments INDICATED Nasal Adenovirus (PCR) NOT DETECTED Nasal B. parapertussis DNA (PCR) NOT DETECTED Nasal Coronavir 229E PCR NOT DETECTED Nasal Coronavir HKU1 PCR NOT DETECTED Nasal Coronavir NL63 PCR NOT DETECTED Nasal Coronavir OC43 PCR NOT DETECTED Nasal Enterovir/Rhinovir PCR NOT DETECTED Nasal Influenza B PCR NOT DETECTED Nasal Influenza A PCR NOT DETECTED Nasal Parainfluen 1 PCR NOT DETECTED Nasal Parainfluen 2 PCR NOT DETECTED Nasal Parainfluen 3 PCR NOT DETECTED Nasal Parainfluen 4 PCR NOT DETECTED Nasal RSV (PCR) NOT DETECTED Nasal B.pertussis DNA PCR NOT DETECTED Nasal C.pneumoniae (PCR) NOT DETECTED Sly Human Metapneumo PCR NOT DETECTED Nasal M.pneumoniae (PCR) NOT DETECTED Nasal SARS-CoV-2 (PCR) NOT DETECTED Salicylates Urine Opiates Screen NEGATIVE Ur Oxycodone Screen NEGATIVE Urine Methadone Screen NEGATIVE Ur Propoxyphene Screen NEGATIVE Acetaminophen Ur Barbiturates Screen NEGATIVE Ur Tricyclics Screen NEGATIVE Ur Phencyclidine Scrn NEGATIVE Ur Amphetamine Screen NEGATIVE U Methamphetamines Scrn NEGATIVE U Benzodiazepines Scrn NEGATIVE Urine Cocaine Screen NEGATIVE U Cannabinoids Screen NEGATIVE Ethyl Alcohol - Rads (name of study) head CT Radiology: Final report received, EMP read contemporaneously, See rad report (no acute abnormality. ) cxr Radiology: Final report received, EMP read contemporaneously, See rad report (no acute abnormality. ) PD MEDICAL DECISION MAKING - ED course Complexity details: reviewed old records (Prior UTIs were Proteus), reviewed results, re-evaluated patient, considered differential, d/w patient, d/w sap pp consultant ED course: No acute findings on head CT, chest x-ray. She initially was hypoxic with EMS but this resolved upon arrival here. She has significant altered mental status, likely secondary to infection. Has significant leukocytosis as well. She likely has a colonized urinary catheter, but given her new altered mental status, metabolic encephalopathy and elevated white blood cell count, we will treat the UTI and see if this improves her mental status. Discussed the case with Dr. Corrigan, hospitalist who accepts This document was made in part using voice recognition software. While efforts are made to proofread this document, sound alike and grammatical errors may occur. Departure - Departure Disposition: 66 [facility] DC/Xfer Clinical Impression: Confusion, Multiple sclerosis Altered mental status Qualifiers: Altered mental status type: disorientation Qualified Code(s): R41.0 - Disorientation, unspecified UTI (urinary tract infection) Qualifiers: Urinary tract infection type: catheter-associated UTI Indwelling urinary catheter type: indwelling urethral catheter Encounter type: initial encounter Qualified Code(s): T83.511A - Infection and inflammatory reaction due to indwelling urethral catheter, initial encounter Leukocytosis Qualifiers: Leukocytosis type: other Qualified Code(s): D72.828 - Other elevated white blood cell count Condition: Stable
[2021-05-20 15:33] LABS: BASOPHILS # (AUTO) 0.1 10^3/uL (0.0-0.1); BASOPHILS % (AUTO) 0.5 %; EOSINOPHILS # (AUTO) 0.4 10^3/uL (0.0-0.7); EOSINOPHILS % (AUTO) 2.5 %; HCT - HEMATOCRIT 32.5 % (37.0-47.0); HGB - HEMOGLOBIN 9.4 g/dL (12.0-16.0); LYMPHOCYTES # (AUTO) 2.8 10^3/uL (1.5-3.5); LYMPHOCYTES % (AUTO) 16.9 %; MEAN CORPUSCULAR HEMOGLOBIN 23.6 pg (27.0-31.0); MEAN CORPUSCULAR HGB CONC 28.9 g/dL (32.0-36.0); MEAN CORPUSCULAR VOLUME 81.5 fL (81.0-99.0); MONOCYTES # (AUTO) 0.9 10^3/uL (0.0-1.0); MONOCYTES % (AUTO) 5.5 %; NEUTROPHILS # (AUTO) 12.1 10^3/uL (1.5-6.6); NEUTROPHILS % (AUTO) 74.2 %; PLT - PLATELET COUNT 602 10^3/uL (130-450); RED BLOOD COUNT 3.99 10^6/uL (4.20-5.40); RED CELL DISTRIBUTION WIDTH 16.6 % (12.0-15.0); WHITE BLOOD COUNT 16.3 x10^3/uL (4.8-10.8)
--- NOTE | 2021-05-20 15:46 | CT Report ---
PROCEDURE: HEAD WO INDICATIONS: altered mental status TECHNIQUE: Noncontrast 4.5 mm thick angled axial sections acquired from the foramen magnum to the vertex. For r adiation dose reduction, the following was used: automated exposure control, adjustment of mA and/or kV according to patient size. COMPARISON: CT head 12/30/2020 FINDINGS: Image quality: Excellent. The ventricular system and cortical sulci demonstrate atrophy, consistent for patient's stated age. There are areas of hypodensity in the periventricular and subcortical white matter. There is no acut e intra or extra-axial fluid collection. No acute hemorrhage, mass lesion or midline shift. Brainst em is unremarkable. Globes are symmetrical. Sinuses demonstrate fluid level in the sphenoid sinuses, right greater than l eft, minimally less prominent when compared to prior exam. Osseous structures are intact. IMPRESSION: 1. No acute intracranial process. 2. Mild to moderate atrophy and chronic microvascular ischemic changes. Reviewed by: Magdalena Ramirez MD on 05/20/2021 3:44 PM PDT Approved by: Magdalena Ramirez MD on 05/20/2021 3:44 PM PDT Station ID: [id number]
[2021-05-20 15:49] LABS: ACETAMINOPHEN < 10 ug/mL (10-30); ALBUMIN 3.2 g/dL (3.2-5.5); ALBUMIN/GLOBULIN RATIO 0.6 (1.0-2.2); ALKALINE PHOSPHATASE 93 IU/L (42-121); ALT ALANINE AMINOTRANSFERASE 25 IU/L (10-60); AST ASPARTATE AMINOTRANSFERASE 18 IU/L (10-42); BILIRUBIN,TOTAL 0.6 mg/dL (0.2-1.0); BUN - BLOOD UREA NITROGEN 17 mg/dL (6-20); CALCIUM 9.1 mg/dL (8.5-10.3); CARBON DIOXIDE - CO2 33 mmol/L (21-32); CHLORIDE 92 mmol/L (101-111); CREATININE 0.3 mg/dL (0.4-1.0); ETOH - ETHANOL < 5.0 mg/dL; GFR - MDRD 218 (>89); GLUCOSE 127 mg/dL (70-100); LIPASE 28 U/L (22-51); POTASSIUM 3.5 mmol/L (3.5-5.0); SALICYLATE < 6.0 mg/dL; SODIUM 136 mmol/L (135-145); TOTAL PROTEIN 8.5 g/dL (6.7-8.2)
[2021-05-20 16:11] LABS: PLATELET ESTIMATE, MANUAL INCREASED (>450,000) (NORMAL); PLATELET MORPHOLOGY 1+ GIANT PLATELETS (NORMAL); SLIDE REVIEW? Indicated
[2021-05-20 16:12] LABS: WBC MORPHOLOGY (MULTIPLE) NORMAL APPEARANCE (NORMAL)
--- NOTE | 2021-05-20 16:15 | XRAY Report ---
PROCEDURE: Chest 1 View X-Ray INDICATIONS: Hypoxia TECHNIQUE: One view of the chest was acquired. COMPARISON: December 30, 2020 FINDINGS: SUPPORT DEVICES: None. LUNGS/PLEURA: No focal consolidation, pleural effusion or space-occupying pneumothorax. MEDIASTINUM: The cardiomediastinal silhouette is within normal limits. BONES/SOFT TISSUES: No acute abnormality. IMPRESSION: 1.No acute cardiopulmonary abnormality. Reviewed by: Pablo Dudley MD on 05/20/2021 4:14 PM PDT Approved by: Pablo Dudley MD on 05/20/2021 4:14 PM PDT Station ID: [id number]
[2021-05-20 16:17] LABS: MUDS CUTOFF CONCENTRATIONS CUTOFF CONC BELOW:
[2021-05-20 16:21] LABS: BILIRUBIN,URINE NEGATIVE (NEGATIVE); GLUCOSE, URINE (UA) NEGATIVE (NEGATIVE); KETONES,URINE (UA) NEGATIVE (NEGATIVE); LEUKOCYTE ESTERASE, URINE LARGE (NEGATIVE); NITRITE,URINE POSITIVE (NEGATIVE); OCCULT BLOOD,URINE LARGE (NEGATIVE); PH,URINE 7.5 PH (5.0-7.5); PROTEIN,URINE TRACE mg/dL (NEGATIVE); UROBILINOGEN,URINE 0.2 (NORMAL) E.U./dL (NORMAL)
[2021-05-20 16:22] LABS: CLARITY,URINE CLOUDY (CLEAR)
[2021-05-20 16:33] LABS: AMPHETAMINE SCREEN,URINE NEGATIVE (NEGATIVE); BACTERIA,URINE Moderate /HPF (None Seen); BARBITURATE SCREEN,UR NEGATIVE (NEGATIVE); BENZODIAZEPINES SCREEN, URINE NEGATIVE (NEGATIVE); COCAINE SCREEN URINE NEGATIVE (NEGATIVE); METHADONE SCREEN, URINE NEGATIVE (NEGATIVE); METHAMPHETAMINES SCREEN, URINE NEGATIVE (NEGATIVE); OPIATE SCREEN, URINE NEGATIVE (NEGATIVE); OXYCODONE SCREEN, URINE NEGATIVE (NEGATIVE); PROPOXYPHENE SCREEN, URINE NEGATIVE (NEGATIVE); SQUAMOUS EPITHELIAL CELL,UR FEW Squamous (<= Few); THC CANNABINOID SCREEN, URINE NEGATIVE (NEGATIVE); TRICYCLIC ANTIDEPRESSANT,URINE NEGATIVE (NEGATIVE); WBC,URINE >25 /HPF (0-5)
[2021-05-20] MEDS ORDERED: cefTRIAXone 1 GM VIAL IVP STA (16:38)
[2021-05-20 17:16] LABS: B. PARAPERTUSSIS- RESP PCR PAN NOT DETECTED; B. PERTUSSIS- RESP PCR PANEL NOT DETECTED; C. PNEUMONIAE- RESP PCR PANEL NOT DETECTED; CORONAVIRUS 229E-RESP PCR NOT DETECTED; CORONAVIRUS HKU1-RESP PCR NOT DETECTED; CORONAVIRUS NL63-RESP PCR NOT DETECTED; CORONAVIRUS OC43-RESP PCR NOT DETECTED; HUMAN METAPNEUMOVIRUS NOT DETECTED; INFLUENZA A- RESP PCR PANEL NOT DETECTED; INFLUENZA B - RESP PCR PANEL NOT DETECTED; M. PNEUMONIAE- RESP PCR PANEL NOT DETECTED; PARAINFLUENZA VIRUS 1 NOT DETECTED; PARAINFLUENZA VIRUS 2 NOT DETECTED; PARAINFLUENZA VIRUS 3 NOT DETECTED; PARAINFLUENZA VIRUS 4 NOT DETECTED; RHINOVIRUS/ENTEROVIRUS NOT DETECTED; RSV- RESP PCR PANEL NOT DETECTED; SARS-CoV-2 -RESP PCR PANEL NOT DETECTED
[2021-05-20] MEDS ORDERED: ONDANSETRON ODT 4 MG TABLET TL PRN (19:50)
[2021-05-20] MEDS ORDERED: ACETAMINOPHEN 325 MG TABLET PO PRN (19:50)
[2021-05-20] MEDS ORDERED: ONDANSETRON 4 MG/2 ML VIAL IVP PRN (19:50)
[2021-05-20] MEDS ORDERED: PROCHLORPERAZINE 10 MG/2 ML VIAL IVP PRN (19:50)
[2021-05-20] MEDS ORDERED: oxyCODONE 5 MG TABLET PO PRN (19:50)
[2021-05-20] MEDS ORDERED: LACTATED RINGERS 1,000 ML IV SCH (20:00)
--- NOTE | 2021-05-20 20:23 | HISTORY & PHYSICAL EXAMINATION ---
Chief Complaint - Chief Complaint Chief Complaint: increasing sleepiness and can't wake up History of Present Illness - Admitted From Admitted From:: SNF via EMS - History Obtained From Records Reviewed: [employer] History obtained from: patient and [employer] Exam Limitations: none - History of Present Illness HPI Comment/Other: 71-year-old female who has been living in a [facility] facility since approximately 02/2018 due to overall weakness and inability to take care of herself as a result of multiple sclerosis and it's spastic paraplegia. For years her and family pieced together care until his in 2015. It became apparent that family could no longer piece together the care, and she was transferred to a fpc facility 02/2018. Her sister moved to [place] in 2018. Her son has moved off [place]. Her multiple sclerosis is late stage, with neurogenic bladder, chronic indwelling Good, chronic pain with spasticity for which she is on a baclofen pump. Occasionally incontinent of bow el. She has had a stage III decubitus ulcer due to contractions on her right mitchell, ischium, as well as sacrum in the past. She has chronic constipation induced by opioids. She is followed at the wound clinic here at the hospital. She has frequent, frequent urinary tract infections. Urinary pathogens in the past have included Klebsiella, Citrobacter, Pseudomonas, MRSA, ESBL E. coli, and Proteus. Culture in September of this year was Proteus and ESBL. December of this year was Proteus and ESBL E. coli. January and March of this year were both Proteus without ESBL E. coli. Her last admission was in December of this year. She was brought in by ambulance to the emergency room because she was unr esponsive at her fpc facility. She has been getting sleepier and sleepier over the last 2 days with increasing confusion. When EMS arrived there she was responsive. The patient described feeling increasingly weak over her chronic weakness. She usually requires a Chayito lift to get her out of bed. Has been wheelchair bound or bed bound since 2013 or so. She is bathed twice a week. Cannot emember much of the last few days. She just remembers having flashes of severe uncomfortableness. When I asked her to try and quantify what made her uncomfortable she says that she remembers having all over muscle pain, occasional shakes, spasticity was worse. She had generalized abdominal aching with only one episode of emesis. She was having occasional diarrhea. But she says that she feels that she was just "in and out" without ability to quantify how long she has been feeling this ill. Right now she knows that she is in a healthcare facility but cannot name the fact that she lives at [facility] or that she is at [facility]. Temperature was 36.5. Heart rate 74. Blood pressure 123/73. Respirations 16. 98% on 2 L there is no current physical exam documented in the ER note. 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 Her urine tox urine is negative. ite cell count is 16.3. Hemoglobin 9.4. Platelets 602. CMP is essentially normal with a random glucose of 127. Total protein 8.5. Urinalysis has pyuria, hematuria, leukocyte Estrace, nitrites, a few squamous cells. History - Past Medical History Cardiovascular: reports: High cholesterol Respiratory: reports: None Neuro: reports: CVA (left cerebrellar lacunar infarct on 2015 MRI), Peripheral neuropathy, Multiple sclerosis (2000 Primary progressive on no DMT. 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 It affects spasticity mainly in her lower back and legs that are quite painful.), Other (chronic pain) Derm: reports: Other (pressure ulcer of mitchell and sacrum in the past) MRSA Hx?: Yes Other Past Medical History: chronic anemia w colonscope 2019 - Past Surgical History General: reports: Colonoscopy (04/2018 for rectal mass. no bx report. video malfunction. ), EGD (05/2015 neg path) Ortho: reports: Other - Family & Social History Family History: Mother: , Father: Family History Comment/Other: She was unable to provide me with a family histo ry. Review of [facility] shows mom to have had unlabeled "cancer" at her . Brother had renal cancer. Living arrangement: [facility] Living Situation: With caregiver(s) Social History Notes: She was from [place]Uncle[place] and on. Moved here when she met someone from the [place]. They were until his in February 2016. She resides at [facility] since 2018. She told me that she has a remote smoking history. Denies alcohol use. - Substance History Use: Uses substance without health or social issues: NONE Abuse: Recurrent use of substance despite neg consequences: NONE Dependence: Experiences withdrawal or developed tolerances: NONE - POLST Patient has POLST: Yes POLST Status: DNR (Advanced care planning. Patient does have D POA which is her son Adan, has a POLST in place with the [facility] and selective treatments. She is quite thoughtful and pragmatic and wane benefits and burdens of medical interventions and appointments. We will continue to anticipate decline in the future,) Meds/Allgy - Home Medications Home Medications: Ambulatory Orders Medication Instructions Recorded Confirmed Acetaminophen [Tylenol Extra 500 - 1,000 mg PO Q6HR PRN 01/28/18 02/22/21 Strength] Aspirin [Adult Aspirin] 81 mg PO DAILY 01/28/18 05/20/21 Bisacodyl Supp [Dulcolax Supp] 1 supp ID DAILY PRN 01/28/18 02/22/21 Cholecalciferol (Vitamin D3) 2,000 unit PO DAILY 01/28/18 05/20/21 [Vitamin D3] polyethylene glycoL 3350 [Miralax] 17 gm PO DAILY 01/28/18 02/22/21 Baclofen 10 mg PO TID 08/04/18 05/20/21 Calcium Carbonate [Tums (Calcium 1,000 mg PO Q4HR PRN 11/09/18 02/22/21 Carbonate 500mg)] DULoxetine [Cymbalta] 60 mg PO DAILY 11/09/18 05/20/21 Ferrous Gluconate [Iron] 240 mg PO DAILY 11/09/18 05/20/21 Gabapentin 100 mg PO DAILY 11/09/18 02/22/21 Gabapentin [Neurontin] 300 mg PO HS 11/09/18 02/22/21 Lovastatin 10 mg PO QPM 11/09/18 05/20/21 Naloxone HCl 0.1 ml SLY PRN PRN 11/09/18 02/22/21 Sennosides [Senna Lax] 8.6 mg PO BID 06/07/19 02/22/21 Albuterol Sulf [Ventolin Hfa 2 puffs INH Q4H PRN 08/23/20 02/22/21 Inhaler] Fluticasone/Salmeterol [Advair Hfa 1 puffs IH BID 12/30/20 05/20/21 115-21 Mcg Inhaler] Oxybutynin Chloride [Ditropan Xl] 5 mg PO DAILY 12/30/20 05/20/21 Potassium Chloride [Micro-K] 40 meq PO DAILY 12/30/20 05/20/21 hydroCHLOROthiazide 50 mg PO DAILY 12/30/20 05/20/21 [Hydrochlorothiazide] fentaNYL [Fentanyl 25mcg patch] 1 each TD Q3D 12/31/20 05/20/21 D-Mannose [Azo D-Mannose] 500 mg PO DAILY PM 01/26/21 05/20/21 Mineral Oil [Mineral Oil Enema] 1 ea RC DAILY #133 ml 02/22/21 polyethylene glycoL 3350 [Miralax] 17 gm PO BID #1 bottle 02/22/21 - Allergies Allergies/Adverse Reactions: Allergies Allergy/AdvReac Type Severity Reaction Status Date / Time nystatin Allergy Unknown Verified 05/20/21 15:00 Penicillins Allergy Unknown Verified 05/20/21 15:00 Review of Systems - Constitutional Constitutional: reports: Fatigue (chronic and if she does "too much" feels terrible so she "paces herself"), Weakness, Other (sleeps a lot, deeply) - Eyes Eyes: reports: Blurred vision, Dipolpia - Ears, Nose & Throat Ears, Nose & Throat: reports: Hearing loss, Vertigo. denies: Nasal pain, Nasal discharge, Nasal obstruction, Nasal congestion, Sore throat, Hoarseness - Cardiovascular Cariovascular: reports: Lightheadedness. denies: Irregular heart rate, Palpitations, Chest pain, Edema, Syncope, Exertional dyspnea, Decr. exercise tolerance - Respiratory Respiratory: denies: Cough, Sputum production, Wheezing, Snoring, Orthopnea, SOB at rest, SOB with exertion - Gastrointestinal Gastrointestinal: reports: Abdominal pain (chronic and b/l lower quad for years. Use to see Loura from [facility] Constipation, Reflux/heartburn, Poor appetite, Other (mild dysphagia, chronic) - Genitourinary Genitourinary: reports: Flank pain, Other (neurogenic bladder w change every 3 weeks.). denies: Dysuria, Frequency, Urgency, Hematuria - Musculoskeletal Musculoskeletal: reports: Muscle pain (spasms of legs and lower abd wall) - Integumentary Integumentary: reports: Other (until she was in SNF, prone to decubiti due to lack of movement.). denies: Rash, Pruritis, Lesions, Dryness - Neurological Neurological: reports: General weakness, Headache, Dizziness, Numbness, Memory problems (but she still makes her own medical decisons, she tells her son and he backs her up. Hard to focus sometimes.), Pre-existing deficit, Incoordination (truncal instability and leans to the right a lot, frquent falls resulted in wheelchair by ~2013.), Other (tardive dyskinesia from reglan, nortriptyline 2015. Reglan was for constipation). denies: Focal weakness - Psychiatric Psychiatric: reports: Depression (mild), Anxiety (moderate). denies: Suicidal, Delusions, Hallucinations - Endocrine Endocrine: reports: Intolerance to cold. denies: Polyuria, Polydypsia, Polyphagia - Hematologic/Lymphatic Hematologic/Lymphatic: reports: Anemia. denies: Bruising, Petechiae Prior Level of Functionality: She has been wheelchair-bound since approximately 2013 or so she thinks. She can transfer from bed to chair. But since living at the fpc facility transfer needs to occur with a Chayito lift. She can feed herself. But she is dependent on aides or nursing for everything else with regards to bathing, dressing, toileting Exam - Vital Signs Vital Signs: Vital Signs x48h Temp Pulse Resp BP Pulse Ox 05/20/21 18:52 76 14 96/59 L 96 05/20/21 18:08 72 11 L 107/50 L 100 05/20/21 16:51 86 25 H 121/61 98 05/20/21 15:19 74 22 128/85 H 100 05/20/21 15:00 36.5 C 74 16 123/73 98 - Physical Exam General Appearance: positive: No acute distress, Alert (but disoriented. Able to speak in full lucid sentences but can't remember how she got here.) Eyes Bilateral: positive: PERRL, EOMI. negative: Conjunctivae nml (thick white matter wiped off and now w constant clear tears.) ENT: positive: Dry mucous membranes. negative: Purulent nasal drainage, Pharyngeal erythema Neck: positive: No JVD. negative: Lymphadenopathy (R), Lymphadenopathy (L), Stiff neck Respiratory: positive: No respiratory distress, Other (she can't seem to follow command for a deep breath. I need an assist to lift her to sit since she can't sit up herself). negative: Wheezes, Rales, Rhonchi Cardiovascular: positive: Regular rate & rhythm. negative: Systolic murmur, Gallop/S4, Friction rub Abdomen: positive: No organomegaly, Tenderness (mild and diffuse, "I just ache".), Other (mild distension. mild tympany. Pump in LLQ and fentanyl patch just above that.). negative: Abnml bowel sounds (hypoactive) Skin: positive: Warm, Pallor Extremities: positive: Other (ankles in chronic plantar flexion). negative: Full ROM (hips are externally rotated and legs splayed and turned out), Calf tenderness, Joint swelling Neurologic/Psychiatric: positive: CN's nml (2-12), Disoriented to place, Disoriented to time, Weakness. negative: Motor nml (spastic paraplegia LE, chronic plantar flexion at ankles. Flacid legs, can move arms and hands but not hold them up at all. No tremors.) Reflexes: Bicep (R): 0, Bicep (L): 0, Knee (R): 0, Knee (L): 0, Ankle (R): 0, Ankle (L): 0 Babinski Reflex: Right: Up, Left: Up Conclusion/Plan - Problem List (1) Metabolic encephalopathy Conclusion/Plan: Due to UTI. This is a recurring problem for this daniela lady and she usually clears within 2 to 3 days. At this time there is no stroke. No acute renal failure. Talk screen negative for exogenous or recreational agents. While she is on fentanyl and baclofen those are chronic medications for her. She has alre gwen improved in the time she is been in the emergency room. Plan: Inpatient status Treat causes of the encephalopathy Plan is for return to fpc facility (2) Urinary tract infection Conclusion/Plan: She has received Rocephin in the emergency room. We will await the culture results of this current urinalysis and culture to determine if we need to change antibiotics or if she has resistant bacteria. White cell count is elevated. But she does not have a fever. Plan: Trend white cell count Review culture results when available Qualifiers: Urinary tract infection type: catheter-associated UTI Indwelling urinary catheter type: indwelling urethral catheter Encounter type: initial encounter Qualified Code(s): T83.511A - Infection and inflammatory reaction due to indwelling urethral catheter, initial encounter; N39.0 - Urinary tract infection, site not specified (3) Spastic paraplegia secondary to multiple sclerosis Conclusion/Plan: Chronic, long-term problem for her. His ultimate inability to care for self and is now dependent for activities of daily living to fpc facility staff. She has been followed in the past by palliative care consultative service. It is not clear why she has not been seen since 2019 and now. She may be under the care of palliative care at the fpc facility. (4) Chronic anemia Conclusion/Plan: For which she is on iron therapy. Colonoscopy in the past was negative. Hemoglobin slightly lower than her baseline of 10. We will review with the patient when she is a little bit more alert to see how much further she wants to go with continued work-up of this. In the meantime we will just resume her iron while here. - Lab Results Lab results reviewed: Yes Fish Bones: 05/20/21 15:15 05/20/21 15:15 - Diagnostic Imaging Results Diagnostic Imaging Results: positive: Final report reviewed Diagnostic Imaging Results Comments: Head CT is without acute intracranial process. Mild to moderate atrophy and chronic microvascular ischemic changes. Chest x-ray is without acute cardiopulmonary abnormality. - EKG Results EKG Interpreted Independently: No
[2021-05-20] MEDS: SODIUM CHLORIDE FLUSH 0.9% 10 ML SYRINGE IVP PRN (21:58)
[2021-05-20] MEDS ORDERED: BACLOFEN 10 MG TABLET PO SCH (22:00)
[2021-05-21] MEDS: SODIUM CHLORIDE FLUSH 0.9% 10 ML SYRINGE IVP SCH ×4 (02:22→23:34)
[2021-05-21] MEDS ORDERED: BENZOCAINE/MENTHOL LOZENGE MM PRN (04:26)
[2021-05-21 05:26] LABS: BASOPHILS # (AUTO) 0.1 10^3/uL (0.0-0.1); BASOPHILS % (AUTO) 0.7 %; EOSINOPHILS # (AUTO) 0.5 10^3/uL (0.0-0.7); EOSINOPHILS % (AUTO) 3.5 %; HCT - HEMATOCRIT 26.4 % (37.0-47.0); HGB - HEMOGLOBIN 7.7 g/dL (12.0-16.0); LYMPHOCYTES % (AUTO) 27.1 %; MEAN CORPUSCULAR HEMOGLOBIN 23.8 pg (27.0-31.0); MEAN CORPUSCULAR HGB CONC 29.2 g/dL (32.0-36.0); MEAN CORPUSCULAR VOLUME 81.5 fL (81.0-99.0); MONOCYTES # (AUTO) 0.9 10^3/uL (0.0-1.0); MONOCYTES % (AUTO) 5.9 %; NEUTROPHILS # (AUTO) 9.3 10^3/uL (1.5-6.6); NEUTROPHILS % (AUTO) 62.4 %; PLT - PLATELET COUNT 506 10^3/uL (130-450); RED BLOOD COUNT 3.24 10^6/uL (4.20-5.40); RED CELL DISTRIBUTION WIDTH 16.5 % (12.0-15.0); WHITE BLOOD COUNT 14.9 x10^3/uL (4.8-10.8)
[2021-05-21 05:38] LABS: BUN - BLOOD UREA NITROGEN 12 mg/dL (6-20); CALCIUM 8.4 mg/dL (8.5-10.3); CARBON DIOXIDE - CO2 30 mmol/L (21-32); CHLORIDE 102 mmol/L (101-111); GLUCOSE 96 mg/dL (70-100); POTASSIUM 3.9 mmol/L (3.5-5.0); SODIUM 139 mmol/L (135-145)
[2021-05-21 05:51] LABS: CREATININE < 0.3 mg/dL (0.4-1.0)
[2021-05-21] MEDS ORDERED: LACTATED RINGERS 1,000 ML IV SCH (07:35)
[2021-05-21 08:00] LABS: ABSOLUTE RETICS # AUTO 0.061 10^6/uL (0.020-0.110); RED BLOOD COUNT 3.21 10^6/uL (4.20-5.40); RETICULOCYTE COUNT % (AUTO) 1.89 % (0.5-2.3)
[2021-05-21] MEDS ORDERED: FERROUS GLUCONATE 324 MG TABLET PO SCH (08:00)
[2021-05-21 08:20] LABS: % IRON SATURATION 4 % (20-50); IRON 13 ug/dL (28-170); TOTAL IRON BINDING CAPACITY 321 ug/dL (250-450); TRANSFERRIN 229 mg/dL (192-382)
[2021-05-21 08:37] LABS: FERRITIN 11.1 ng/mL (11.0-306.8)
[2021-05-21] MEDS: ASCORBIC ACID 500 MG TABLET PO SCH (08:37)
[2021-05-21] MEDS: DULoxetine 30 MG CAPSULE PO SCH (08:39)
[2021-05-21] MEDS: ENOXAPARIN 40 MG/0.4 ML SYRINGE SUBQ SCH (08:44)
[2021-05-21] MEDS: SACCHAROMYCES BOULARDII 250 MG CAPSULE PO SCH ×2 (09:02→16:52)
[2021-05-21] MEDS: CEFEPIME 1 GM in SODIUM CHLORIDE 0.9% MINIBAG 100 ML IV SCH ×2 (09:02→20:52)
--- NOTE | 2021-05-21 11:26 | PHARMACY PROGRESS NOTE ---
- Best Possible Medication History Admit Date and Time: 05/20/211949 Processed by: Pharmacy Medication History completed: Yes Patient Interview: Completed (med list obtained from [facility] to confirm medications) As the person ultimately responsible for medication therapy, providers are able to order a medication from an existing home medication list in [facility] via the "Reconcile Routine" prior to Confirmation of that medication by senior support engineer. Such practice is discouraged except when the physician, in their clinical judgment, deems that a medical need exists for a medication without regard to previous use.
[2021-05-21] MEDS ORDERED: FERROUS SULFATE 325 MG TABLET PO SCH (11:55)
--- NOTE | 2021-05-21 12:02 | PROVIDER PROGRESS NOTE ---
Assessment/Plan - Problem List (1) Altered mental status Qualifiers: Altered mental status type: disorientation Qualified Code(s): R41.0 - Disorientation, unspecified Assessment/Plan: 112, -Significantly improved. Patient is alert and orientated. It is likely caused by acute infection from her UTI. Patient has chronic Indwelling urinary catheter, We will change into new catheter, Continue antibiotics, add probiotics Plan is for return to her nursing facility. (2) Urinary tract infection Patient had multiple times of urinary tract infection, she had chronic urinary indwelling catheter. According to her previous culture, we will switch to cefepime. We will according to UA culture, and adjust antibiotics. Blood culture is pending. (3) Spastic paraplegia secondary to multiple sclerosis Conclusion/Plan: Chronic, long-term problem for her. We will resume her home medication baclofen. She has been followed in the past by palliative care consultative service. Patient may continue follow-up with palliative care in nursing facility (4) Chronic anemia Conclusion/Plan: Patient hemoglobin is down 7.7 today. Has hx of chronic anemia. Colonoscopy in the past was negative. Iron studies show iron deficiency, check occult stool test, Order iron pills, H&H (5)sacral pressure ulcer, stage 1 It seems patient's skin is intact, Continue reposition and skin care by nurse protocol - Current Meds Current Meds: Current Medications Generic Name Dose Route Start Last Admin Trade Name Freq PRN Reason Stop Dose Admin Ascorbic Acid 500 mg 05/21/21 09:00 05/21/21 08:37 Ascorbic Acid 500 Mg Tablet PO 500 mg DAILY JOSE FRANCISCO Administration Duloxetine HCl 60 mg 05/21/21 09:00 05/21/21 08:39 Duloxetine 30 Mg Capsule PO 60 mg DAILY JOSE FRANCISCO Administration Enoxaparin Sodium 40 mg 05/21/21 09:00 05/21/21 08:44 Enoxaparin 40 Mg/0.4 Ml Syringe SUBQ 40 mg DAILY JOSE FRANCISCO Administration Ferrous Gluconate 324 mg 05/21/21 08:00 05/21/21 08:36 Ferrous Gluconate 324 Mg Tablet PO 324 mg DAILYWM JOSE FRANCISCO Administration Cefepime HCl 1 gm/ Sodium 100 mls @ 200 mls/hr 05/21/21 09:00 05/21/21 09:32 Chloride IV Infused BID JOSE FRANCISCO Infusion Lactated Ringer's 1,000 mls @ 83.3 mls/hr 05/21/21 07:35 05/21/21 08:31 Lr IV 05/21/21 19:35 83.3 mls/hr .Q12H1M JOSE FRANCISCO Administration Oxycodone HCl 5 mg 05/20/21 19:50 05/20/21 22:41 Oxycodone 5 Mg Tablet PO 5 mg Q4HR PRN Administration Pain 5 to 7 Saccharomyces Boulardii 250 mg 05/21/21 08:00 05/21/21 09:02 Saccharomyces Boulardii 250 Mg Capsule PO 250 mg BIDWM JOSE FRANCISCO Administration Sodium Chloride 10 ml 05/20/21 19:50 05/20/21 21:58 Sodium Chloride Flush 0.9% 10 Ml Syringe IVP 10 ml PRN PRN Administration NEEDED PER PROVIDER ORDERS Sodium Chloride 10 ml 05/21/21 01:00 05/21/21 02:22 Sodium Chloride Flush 0.9% 10 Ml Syringe IVP Not Given 0100,0900,1700 JOSE FRANCISCO Throat Lozenges 1 lozenge 05/21/21 04:26 05/21/21 07:04 Benzocaine/Menthol Lozenge MM 1 lozenge Q2HR PRN Administration Throat pain - Lab Result Fish Bone Diagrams: 05/21/21 05:19 05/21/21 05:19 - Additional Planning My Orders: My Active Orders 05/21/21 FECAL OCCULT BLOOD (FIT) Urgent Evaluate and Treat OT [OT] Routine Evaluate and Treat PT [PT] Routine 05/21/21 07:35 Lactated Ringers [Lr] 1,000 ml IV 83.3 mls/hr 05/21/21 08:00 Saccharomyces Boulardii [Florastor] 250 mg PO BIDWM 05/21/21 09:00 Cefepime [Maxipime] 1 gm Sodium Chloride 0.9% Minibag [Normal Saline 0.9% Minibag] 100 ml IV BID 05/21/21 09:06 Out of bed 3+ hours today [RC] TID 05/21/21 10:57 Turn and Reposition [RC] PRN 05/21/21 11:55 Ferrous Sulfate [Feosol] 325 mg PO BIDWM 05/21/21 11:58 Good Insertion [RC] QSHIFT 05/21/21 11:59 Good Continuation and Care [RC] QSHIFT 05/21/21 19:00 H&H [HEMOGLOBIN AND HEMATOCRIT] [HEME] Timed Subjective - Subjective Patient Reports: Feeling Better, Resting Comfortably Objective Vital Signs: Vital Signs - 24 hr 05/20/21 05/20/21 05/20/21 15:00 15:19 16:51 Temperature 36.5 C Heart Rate 74 74 86 Heart Rate [ Brachial] Respiratory 16 22 25 H Rate Blood Pressure 123/73 128/85 H 121/61 Blood Pressure [Left Brachial artery] O2 Saturation 98 100 98 05/20/21 05/20/21 05/20/21 18:08 18:52 21:00 Temperature Heart Rate 72 76 88 Heart Rate [ Brachial] Respiratory 11 L 14 14 Rate Blood Pressure 107/50 L 96/59 L 118/62 Blood Pressure [Left Brachial artery] O2 Saturation 100 96 95 05/20/21 05/21/21 23:45 07:35 Temperature 36.6 C 36.2 C L Heart Rate Heart Rate [ 76 74 Brachial] Respiratory 18 18 Rate Blood Pressure Blood Pressure 120/42 L 120/64 [Left Brachial artery] O2 Saturation 93 93 Oxygen O2 Source Room air I&O (Last 24 Hrs): Intake and Output Totals x24h 05/19/21 05/20/21 05/21/21 23:59 23:59 23:59 Intake Total 1945 2160 Output Total 600 2700 Balance 1345 -540 General: Alert, Oriented x3, Cooperative, No acute distress HEENT: Atraumatic Neck: Supple Lymphatic: no adenopathy Neuro: Alert, Non Focal, Oriented Times 3 Cardiovascular: Regular rate, Normal S1, Normal S2 Respiratory: Chest non-tender, No respiratory distress Abdomen: Normal bowel sounds, Soft, No tenderness Extremities: Normal pulses - Results Results: Laboratory Results WBC 14.9 x10^3/uL (4.8-10.8) H 05/21/21 05:19 RBC 3.21 10^6/uL (4.20-5.40) L 05/21/21 07:47 Hgb 7.7 g/dL (12.0-16.0) L 05/21/21 05:19 Hct 26.4 % (37.0-47.0) L 05/21/21 05:19 MCV 81.5 fL (81.0-99.0) 05/21/21 05:19 MCH 23.8 pg (27.0-31.0) L 05/21/21 05:19 MCHC 29.2 g/dL (32.0-36.0) L 05/21/21 05:19 RDW 16.5 % (12.0-15.0) H 05/21/21 05:19 Plt Count 506 10^3/uL (130-450) H 05/21/21 05:19 MPV 9.0 fL (7.9-10.8) 05/21/21 05:19 Reticulocyte % (Auto) 1.89 % (0.5-2.3) 05/21/21 07:47 Neut # (Auto) 9.3 10^3/uL (1.5-6.6) H 05/21/21 05:19 Lymph # (Auto) 4.0 10^3/uL (1.5-3.5) H 05/21/21 05:19 Phillips # (Auto) 0.9 10^3/uL (0.0-1.0) 05/21/21 05:19 Eos # (Auto) 0.5 10^3/uL (0.0-0.7) 05/21/21 05:19 Baso # (Auto) 0.1 10^3/uL (0.0-0.1) 05/21/21 05:19 Absolute Nucleated RBC 0.00 x10^3/uL 05/21/21 05:19 Nucleated RBC % 0.0 /100WBC 05/21/21 05:19 Manual Slide Review Indicated 05/20/21 15:15 WBC Morphology NORMAL APPEARANCE (NORMAL) 05/20/21 15:15 Platelet Estimate INCREASED (>450,000) (NORMAL) 05/20/21 15:15 Platelet Morphology 1+ GIANT PLATELETS (NORMAL) 05/20/21 15:15 RBC Morph Micro Appear 2+ ANISOCYTOSIS (NORMAL) 2+ HYPOCHROMASIA (NORMAL) 1+ POLYCHROMASIA (NORMAL) 05/20/21 15:15 RBC Morph Micro Appear 2+ ANISOCYTOSIS (NORMAL) 2+ HYPOCHROMASIA (NORMAL) 1+ POLYCHROMASIA (NORMAL) 05/20/21 15:15 RBC Morph Micro Appear 2+ ANISOCYTOSIS (NORMAL) 2+ HYPOCHROMASIA (NORMAL) 1+ POLYCHROMASIA (NORMAL) 05/20/21 15:15 Absolute Retic 0.061 10^6/uL (0.020-0.110) 05/21/21 07:47 Sodium 139 mmol/L (135-145) 05/21/21 05:19 Potassium 3.9 mmol/L (3.5-5.0) 05/21/21 05:19 Chloride 102 mmol/L (101-111) 05/21/21 05:19 Carbon Dioxide 30 mmol/L (21-32) 05/21/21 05:19 Anion Gap 7.0 (6-13) 05/21/21 05:19 BUN 12 mg/dL (6-20) 05/21/21 05:19 Creatinine < 0.3 mg/dL (0.4-1.0) L 05/21/21 05:19 Estimated GFR (MDRD) TNP 05/21/21 05:19 Glucose 96 mg/dL (70-100) 05/21/21 05:19 Lactic Acid 1.1 mmol/L (0.5-2.2) 05/20/21 16:11 Calcium 8.4 mg/dL (8.5-10.3) L 05/21/21 05:19 Iron 13 ug/dL (28-170) L 05/21/21 07:47 TIBC 321 ug/dL (250-450) 05/21/21 07:47 % Saturation 4 % (20-50) L 05/21/21 07:47 Transferrin 229 mg/dL (192-382) 05/21/21 07:47 Ferritin 11.1 ng/mL (11.0-306.8) 05/21/21 07:47 Total Bilirubin 0.6 mg/dL (0.2-1.0) 05/20/21 15:15 AST 18 IU/L (10-42) 05/20/21 15:15 ALT 25 IU/L (10-60) 05/20/21 15:15 Alkaline Phosphatase 93 IU/L (42-121) 05/20/21 15:15 Lactate Dehydrogenase 72 IU/L (91-225) L 05/21/21 07:47 Total Protein 8.5 g/dL (6.7-8.2) H 05/20/21 15:15 Albumin 3.2 g/dL (3.2-5.5) 05/20/21 15:15 Globulin 5.3 g/dL (2.1-4.2) H 05/20/21 15:15 Albumin/Globulin Ratio 0.6 (1.0-2.2) L 05/20/21 15:15 Lipase 28 U/L (22-51) 05/20/21 15:15 Vitamin B12 392 pg/mL (180-914) 05/21/21 07:47 TSH 1.77 uIU/mL (0.34-5.60) 05/20/21 15:15 Urine Color LT. YELLOW 05/20/21 16:08 Urine Clarity CLOUDY (CLEAR) 05/20/21 16:08 Urine pH 7.5 PH (5.0-7.5) 05/20/21 16:08 Ur Specific Valdez 1.015 (1.002-1.030) 05/20/21 16:08 Urine Protein TRACE mg/dL (NEGATIVE) 05/20/21 16:08 Urine Glucose (UA) NEGATIVE mg/dL (NEGATIVE) 05/20/21 16:08 Urine Ketones NEGATIVE mg/dL (NEGATIVE) 05/20/21 16:08 Urine Occult Blood LARGE (NEGATIVE) H 05/20/21 16:08 Urine Nitrite POSITIVE (NEGATIVE) H 05/20/21 16:08 Urine Bilirubin NEGATIVE (NEGATIVE) 05/20/21 16:08 Urine Urobilinogen 0.2 (NORMAL) E.U./dL (NORMAL) 05/20/21 16:08 Ur Leukocyte Esterase LARGE (NEGATIVE) H 05/20/21 16:08 Urine RBC 6-10 /HPF (0-5) H 05/20/21 16:08 Urine WBC >25 /HPF (0-5) H 05/20/21 16:08 Ur Squamous Epith Cells FEW Squamous (<= Few) 05/20/21 16:08 Urine Bacteria Moderate /HPF (None Seen) H 05/20/21 16:08 Ur Microscopic Review INDICATED 05/20/21 16:08 Urine Culture Comments INDICATED 05/20/21 16:08 Nasal Adenovirus (PCR) NOT DETECTED 05/20/21 16:08 Nasal B. parapertussis DNA (PCR) NOT DETECTED 05/20/21 16:08 Nasal Coronavir 229E PCR NOT DETECTED 05/20/21 16:08 Nasal Coronavir HKU1 PCR NOT DETECTED 05/20/21 16:08 Nasal Coronavir NL63 PCR NOT DETECTED 05/20/21 16:08 Nasal Coronavir OC43 PCR NOT DETECTED 05/20/21 16:08 Nasal Enterovir/Rhinovir PCR NOT DETECTED 05/20/21 16:08 Nasal Influenza B PCR NOT DETECTED 05/20/21 16:08 Nasal Influenza A PCR NOT DETECTED 05/20/21 16:08 Nasal Parainfluen 1 PCR NOT DETECTED 05/20/21 16:08 Nasal Parainfluen 2 PCR NOT DETECTED 05/20/21 16:08 Nasal Parainfluen 3 PCR NOT DETECTED 05/20/21 16:08 Nasal Parainfluen 4 PCR NOT DETECTED 05/20/21 16:08 Nasal RSV (PCR) NOT DETECTED 05/20/21 16:08 Nasal B.pertussis DNA PCR NOT DETECTED 05/20/21 16:08 Nasal C.pneumoniae (PCR) NOT DETECTED 05/20/21 16:08 Sly Human Metapneumo PCR NOT DETECTED 05/20/21 16:08 Nasal M.pneumoniae (PCR) NOT DETECTED 05/20/21 16:08 Nasal SARS-CoV-2 (PCR) NOT DETECTED 05/20/21 16:08 Salicylates < 6.0 mg/dL 05/20/21 15:15 Urine Opiates Screen NEGATIVE (NEGATIVE) 05/20/21 16:08 Ur Oxycodone Screen NEGATIVE (NEGATIVE) 05/20/21 16:08 Urine Methadone Screen NEGATIVE (NEGATIVE) 05/20/21 16:08 Ur Propoxyphene Screen NEGATIVE (NEGATIVE) 05/20/21 16:08 Acetaminophen < 10 ug/mL (10-30) L 05/20/21 15:15 Ur Barbiturates Screen NEGATIVE (NEGATIVE) 05/20/21 16:08 Ur Tricyclics Screen NEGATIVE (NEGATIVE) 05/20/21 16:08 Ur Phencyclidine Scrn NEGATIVE (NEGATIVE) 05/20/21 16:08 Ur Amphetamine Screen NEGATIVE (NEGATIVE) 05/20/21 16:08 U Methamphetamines Scrn NEGATIVE (NEGATIVE) 05/20/21 16:08 U Benzodiazepines Scrn NEGATIVE (NEGATIVE) 05/20/21 16:08 Urine Cocaine Screen NEGATIVE (NEGATIVE) 05/20/21 16:08 U Cannabinoids Screen NEGATIVE (NEGATIVE) 05/20/21 16:08 Ethyl Alcohol < 5.0 mg/dL 05/20/21 15:15 - Procedures Procedures: Procedures EXCISION OF DUODENUM, ENDO, DIAGN (06/06/15) INSPECTION OF LOWER INTESTINAL TRACT, ENDO (05/04/18) ABX Reporting Has patient been on IV antibiotics over the past 48 hours?: Yes Current Medications - Current Medications Current Medications: Active Medications Acetaminophen (Acetaminophen 325 Mg Tablet) 650 mg PO Q4HR PRN PRN Reason: Pain 1 to 4 Ascorbic Acid (Ascorbic Acid 500 Mg Tablet) 500 mg PO DAILY [facility] Last Admin: 05/21/21 08:37 Dose: 500 mg Documented by: Baclofen (Baclofen 10 Mg Tablet) 10 mg PO TID PRN PRN Reason: Spasms Duloxetine HCl (Duloxetine 30 Mg Capsule) 60 mg PO DAILY [facility] Last Admin: 05/21/21 08:39 Dose: 60 mg Documented by: Enoxaparin Sodium (Enoxaparin 40 Mg/0.4 Ml Syringe) 40 mg SUBQ DAILY [facility] Last Admin: 05/21/21 08:44 Dose: 40 mg Documented by: Fentanyl (Fentanyl 25 Mcg Patch) 1 patch TOP Q3D [facility] Ferrous Gluconate (Ferrous Gluconate 324 Mg Tablet) 324 mg PO DAILYWM [facility] Last Admin: 05/21/21 08:36 Dose: 324 mg Documented by: Ferrous Sulfate (Ferrous Sulfate 325 Mg Tablet) 325 mg PO BIDWM [facility] Cefepime HCl 1 gm/ Sodium (Chloride) 100 mls @ 200 mls/hr IV BID [facility] Last Infusion: 05/21/21 09:32 Dose: Infused Documented by: Lactated Ringer's (Lr) 1,000 mls @ 83.3 mls/hr IV .Q12H1M [facility] Stop: 05/21/21 19:35 Last Admin: 05/21/21 08:31 Dose: 83.3 mls/hr Documented by: Ondansetron HCl (Ondansetron Odt 4 Mg Tablet) 4 mg TL Q6HR PRN PRN Reason: Nausea / Vomiting Ondansetron HCl (Ondansetron 4 Mg/2 Ml Vial) 4 mg IVP Q6HR PRN PRN Reason: Nausea / Vomiting Oxycodone HCl (Oxycodone 5 Mg Tablet) 5 mg PO Q4HR PRN PRN Reason: Pain 5 to 7 Last Admin: 05/20/21 22:41 Dose: 5 mg Documented by: Prochlorperazine Edisylate (Prochlorperazine 10 Mg/2 Ml Vial) 10 mg IVP Q6HR PRN PRN Reason: Nausea / Vomiting Saccharomyces Boulardii (Saccharomyces Boulardii 250 Mg Capsule) 250 mg PO BIDWM [facility] Last Admin: 05/21/21 09:02 Dose: 250 mg Documented by: Sodium Chloride (Sodium Chloride Flush 0.9% 10 Ml Syringe) 10 ml IVP PRN PRN PRN Reason: NEEDED PER PROVIDER ORDERS Last Admin: 05/20/21 21:58 Dose: 10 ml Documented by: Sodium Chloride (Sodium Chloride Flush 0.9% 10 Ml Syringe) 10 ml IVP 0100,0900,1700 [facility] Last Admin: 05/21/21 02:22 Dose: Not Given Documented by: Throat Lozenges (Benzocaine/Menthol Lozenge) 1 lozenge MM Q2HR PRN PRN Reason: Throat pain Last Admin: 05/21/21 07:04 Dose: 1 lozenge Documented by: Acetaminophen [Tylenol Extra Strength] 500 - 1,000 mg PO Q6HR PRN 01/28/18 Aspirin [Adult Aspirin] 81 mg PO DAILY 01/28/18 Bisacodyl Supp [Dulcolax Supp] 1 supp [place] DAILY PRN 01/28/18 Cholecalciferol (Vitamin D3) [Vitamin D3] 2,000 unit PO DAILY 01/28/18 Baclofen 10 mg PO TID 08/04/18 Calcium Carbonate [Tums (Calcium Carbonate 500mg)] 1,000 mg PO Q4HR PRN 11/09/18 DULoxetine [Cymbalta] 60 mg PO DAILY 11/09/18 Ferrous Gluconate [Iron] 240 mg PO DAILY 11/09/18 Lovastatin 10 mg PO QPM 11/09/18 Naloxone HCl 0.1 ml SLY PRN PRN 11/09/18 Sennosides [Senna Lax] 8.6 mg PO BID PRN 06/07/19 Albuterol Sulf [Ventolin Hfa Inhaler] 2 puffs INH Q4H PRN 08/23/20 Fluticasone/Salmeterol [Advair Hfa 115-21 Mcg Inhaler] 1 puffs IH BID 12/30/20 Oxybutynin Chloride [Ditropan Xl] 10 mg PO DAILY 12/30/20 Potassium Chloride [Micro-K] 40 meq PO DAILY 12/30/20 hydroCHLOROthiazide [Hydrochlorothiazide] 50 mg PO DAILY 12/30/20 fentaNYL [Fentanyl 25mcg patch] 1 each TD Q3D 12/31/20 D-Mannose [Azo D-Mannose] 500 mg PO TIDWM 01/26/21 Mineral Oil [Mineral Oil Enema] 1 ea RC DAILY PRN 05/21/21 polyethylene glycoL 3350 [Miralax] 17 gm PO BID PRN 05/21/21
[2021-05-21 13:15] LABS: FECAL OCCULT BLOOD (FIT) POSITIVE (NEGATIVE)
[2021-05-21] MEDS: FERROUS SULFATE 325 MG TABLET PO SCH (16:52)
[2021-05-21] MEDS ORDERED: MIN OIL/DIMETHICON/COCONUT OIL 92 GM TUBE TOP PRN (17:37)
[2021-05-21 19:09] LABS: HCT - HEMATOCRIT 26.6 % (37.0-47.0); HGB - HEMOGLOBIN 7.9 g/dL (12.0-16.0)
[2021-05-22 05:40] LABS: BASOPHILS # (AUTO) 0.1 10^3/uL (0.0-0.1); BASOPHILS % (AUTO) 0.7 %; EOSINOPHILS # (AUTO) 0.5 10^3/uL (0.0-0.7); HCT - HEMATOCRIT 26.9 % (37.0-47.0); HGB - HEMOGLOBIN 7.9 g/dL (12.0-16.0); LYMPHOCYTES # (AUTO) 3.4 10^3/uL (1.5-3.5); LYMPHOCYTES % (AUTO) 28.1 %; MEAN CORPUSCULAR HEMOGLOBIN 23.4 pg (27.0-31.0); MEAN CORPUSCULAR HGB CONC 29.4 g/dL (32.0-36.0); MEAN CORPUSCULAR VOLUME 79.8 fL (81.0-99.0); MEAN PLATELET VOLUME 9.6 fL (7.9-10.8); MONOCYTES # (AUTO) 0.7 10^3/uL (0.0-1.0); MONOCYTES % (AUTO) 5.4 %; NEUTROPHILS # (AUTO) 7.4 10^3/uL (1.5-6.6); NEUTROPHILS % (AUTO) 61.5 %; PLT - PLATELET COUNT 597 10^3/uL (130-450); RED BLOOD COUNT 3.37 10^6/uL (4.20-5.40); RED CELL DISTRIBUTION WIDTH 16.4 % (12.0-15.0); WHITE BLOOD COUNT 12.1 x10^3/uL (4.8-10.8)
[2021-05-22 05:49] LABS: CALCIUM 8.5 mg/dL (8.5-10.3); CREATININE 0.3 mg/dL (0.4-1.0); POTASSIUM 3.4 mmol/L (3.5-5.0)
[2021-05-22] MEDS ORDERED: POTASSIUM CHLORIDE 20 MEQ TABLET PO ONE (07:29)
[2021-05-22] MEDS ORDERED: fentaNYL 25 MCG PATCH TOP SCH (08:00)
[2021-05-22] MEDS: ASCORBIC ACID 500 MG TABLET PO SCH (09:04)
[2021-05-22] MEDS: SACCHAROMYCES BOULARDII 250 MG CAPSULE PO SCH ×2 (09:04→17:15)
[2021-05-22] MEDS: FERROUS SULFATE 325 MG TABLET PO SCH ×2 (09:04→17:15)
[2021-05-22] MEDS: CEFEPIME 1 GM in SODIUM CHLORIDE 0.9% MINIBAG 100 ML IV SCH ×2 (09:05→20:32)
[2021-05-22] MEDS: DULoxetine 30 MG CAPSULE PO SCH (09:05)
[2021-05-22] MEDS: ENOXAPARIN 40 MG/0.4 ML SYRINGE SUBQ SCH (09:07)
[2021-05-22] MEDS: SODIUM CHLORIDE FLUSH 0.9% 10 ML SYRINGE IVP SCH ×2 (09:07→17:15)
--- NOTE | 2021-05-22 12:14 | PROVIDER PROGRESS NOTE ---
Assessment/Plan - Problem List (1) Bacteremia Assessment/Plan: Patient's blood culture show one tube is positive with Gram-positive staph, PCR show coagulase negative staph which is similar with UA culture's bacterial. it is possible contamination, repeat blood culture and continue treat with antibiotics, WBC is treaded down now. (2)GI bleeding Patient's occult stool test is positive for blood. HGB was dropped on yesterday then is stable now. hold blood thinner, add Protonic and H&H monitor called surgeon, she will see pt (3) Altered mental status 11-3 resolved. pt is alert and oriented. 112, -Significantly improved. Patient is alert and orientated. It is likely caused by acute infection from her UTI. Patient has chronic Indwelling urinary catheter, We will change into new catheter, Continue antibiotics, add probiotics Plan is for return to her nursing facility. (4) Urinary tract infection 11-3 Your culture show positive for gram-positive, We will continue antibiotics, UA sensitivity study is pending Patient had multiple times of urinary tract infection, she had chronic urinary indwelling catheter. According to her previous culture, we will switch to cefepime. We will according to UA culture, and adjust antibiotics. Blood culture is pending. 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 pt has baclofen pump, She has been followed in the past by palliative care consultative service. Patient may continue follow-up with palliative care in nursing facility (6) Chronic anemia Conclusion/Plan: 11 pt Had significantly iron deficiency, will continue supplemental iron on for patient. Patient also has GI bleed, we consulted with GI surgeon, wayne hayes. Patient hemoglobin is down 7.7 today. Has hx of chronic anemia. Colonoscopy in the past was negative. Iron studies show iron deficiency, check occult stool test, Order iron pills, H&H (7)sacral pressure ulcer, stage 1 patient's skin is intact, Continue reposition and skin care by nurse protocol - Current Meds Current Meds: Current Medications Generic Name Dose Route Start Last Admin Trade Name Freq PRN Reason Stop Dose Admin Acetaminophen 650 mg 05/20/21 19:50 05/21/21 13:20 Acetaminophen 325 Mg Tablet PO 650 mg Q4HR PRN Administration Pain 1 to 4 Ascorbic Acid 500 mg 05/21/21 09:00 05/22/21 09:04 Ascorbic Acid 500 Mg Tablet PO 500 mg DAILY JOSE FRANCISCO Administration Duloxetine HCl 60 mg 05/21/21 09:00 05/22/21 09:05 Duloxetine 30 Mg Capsule PO 60 mg DAILY JOSE FRANCISCO Administration Fentanyl 1 patch 05/22/21 08:00 05/22/21 09:05 Fentanyl 25 Mcg Patch TOP 1 patch Q3D JOSE FRANCISCO Administration Ferrous Sulfate 325 mg 05/21/21 17:00 05/22/21 09:04 Ferrous Sulfate 325 Mg Tablet PO 325 mg BIDWM JOSE FRANCISCO Administration Cefepime HCl 1 gm/ Sodium 100 mls @ 200 mls/hr 05/21/21 09:00 05/22/21 09:05 Chloride IV 200 mls/hr BID JOSE FRANCISCO Administration Mineral Oil 1 applic 05/21/21 17:37 05/21/21 21:03 Min Oil/Dimethicon/Coconut Oil 92 Gm Tube TOP 1 applic PRN PRN Administration Skin Care Oxycodone HCl 5 mg 05/20/21 19:50 05/20/21 22:41 Oxycodone 5 Mg Tablet PO 5 mg Q4HR PRN Administration Pain 5 to 7 Saccharomyces Boulardii 250 mg 05/21/21 08:00 05/22/21 09:04 Saccharomyces Boulardii 250 Mg Capsule PO 250 mg BIDWM JOSE FRANCISCO Administration Sodium Chloride 10 ml 05/20/21 19:50 05/20/21 21:58 Sodium Chloride Flush 0.9% 10 Ml Syringe IVP 10 ml PRN PRN Administration NEEDED PER PROVIDER ORDERS Sodium Chloride 10 ml 05/21/21 01:00 05/22/21 09:07 Sodium Chloride Flush 0.9% 10 Ml Syringe IVP 10 ml 0100,0900,1700 JOSE FRANCISCO Administration Throat Lozenges 1 lozenge 05/21/21 04:26 05/21/21 07:04 Benzocaine/Menthol Lozenge MM 1 lozenge Q2HR PRN Administration Throat pain - Lab Result Fish Bone Diagrams: 05/22/21 05:05 05/22/21 05:05 - Additional Planning My Orders: My Active Orders 05/21/21 11:58 Good Insertion [RC] QSHIFT 05/21/21 17:00 Ferrous Sulfate [Feosol] 325 mg PO BIDWM 05/21/21 17:37 Min Oil/Dimeth/Coconut Oil Crm [Cavilon] 1 applic TOP PRN PRN 05/22/21 General Surgery Consult [CONS] Routine 05/22/21 08:03 Blood Culture [CULTURE, BLOOD #1] [RM] Urgent 05/22/21 08:45 Blood Culture [CULTURE, BLOOD #2] [RM] Urgent 05/22/21 12:00 Pantoprazole [Protonix] 40 mg PO BID 05/22/21 19:00 H&H [HEMOGLOBIN AND HEMATOCRIT] [HEME] Timed Subjective - Subjective Patient Reports: Feeling Better, Resting Comfortably Objective Vital Signs: Vital Signs - 24 hr 05/21/21 05/21/21 05/22/21 15:43 23:45 07:53 Temperature 36.8 C 36.6 C 36.8 C Heart Rate [ 79 85 71 Brachial] Respiratory 16 18 18 Rate Blood Pressure 114/66 [Left Brachial artery] Blood Pressure 132/69 H 144/70 H [Right Brachial artery] O2 Saturation 95 94 96 Oxygen O2 Source Room air I&O (Last 24 Hrs): Intake and Output Totals x24h 05/20/21 05/21/21 05/22/21 23:59 23:59 23:59 Intake Total 1945 5080 1070 Output Total 600 4400 1450 Balance 1345 680 -380 General: Alert, Oriented x3, Cooperative, No acute distress HEENT: Atraumatic Neck: Supple Lymphatic: no adenopathy Neuro: Alert, Non Focal, Oriented Times 3 Cardiovascular: Regular rate, Normal S1, Normal S2 Respiratory: Chest non-tender, No respiratory distress Abdomen: Normal bowel sounds, Soft, No tenderness Extremities: Normal pulses - Results Results: Laboratory Results WBC 12.1 x10^3/uL (4.8-10.8) H 05/22/21 05:05 RBC 3.37 10^6/uL (4.20-5.40) L 05/22/21 05:05 Hgb 7.9 g/dL (12.0-16.0) L 05/22/21 05:05 Hct 26.9 % (37.0-47.0) L 05/22/21 05:05 MCV 79.8 fL (81.0-99.0) L 05/22/21 05:05 MCH 23.4 pg (27.0-31.0) L 05/22/21 05:05 MCHC 29.4 g/dL (32.0-36.0) L 05/22/21 05:05 RDW 16.4 % (12.0-15.0) H 05/22/21 05:05 Plt Count 597 10^3/uL (130-450) H 05/22/21 05:05 MPV 9.6 fL (7.9-10.8) 05/22/21 05:05 Reticulocyte % (Auto) 1.89 % (0.5-2.3) 05/21/21 07:47 Neut # (Auto) 7.4 10^3/uL (1.5-6.6) H 05/22/21 05:05 Lymph # (Auto) 3.4 10^3/uL (1.5-3.5) 05/22/21 05:05 [place] # (Auto) 0.7 10^3/uL (0.0-1.0) 05/22/21 05:05 Eos # (Auto) 0.5 10^3/uL (0.0-0.7) 05/22/21 05:05 Baso # (Auto) 0.1 10^3/uL (0.0-0.1) 05/22/21 05:05 Absolute Nucleated RBC 0.00 x10^3/uL 05/22/21 05:05 Nucleated RBC % 0.0 /100WBC 05/22/21 05:05 Manual Slide Review Indicated 05/20/21 15:15 WBC Morphology NORMAL APPEARANCE (NORMAL) 05/20/21 15:15 Platelet Estimate INCREASED (>450,000) (NORMAL) 05/20/21 15:15 Platelet Morphology 1+ GIANT PLATELETS (NORMAL) 05/20/21 15:15 RBC Morph Micro Appear 2+ ANISOCYTOSIS (NORMAL) 2+ HYPOCHROMASIA (NORMAL) 1+ POLYCHROMASIA (NORMAL) 05/20/21 15:15 RBC Morph Micro Appear 2+ ANISOCYTOSIS (NORMAL) 2+ HYPOCHROMASIA (NORMAL) 1+ POLYCHROMASIA (NORMAL) 05/20/21 15:15 RBC Morph Micro Appear 2+ ANISOCYTOSIS (NORMAL) 2+ HYPOCHROMASIA (NORMAL) 1+ POLYCHROMASIA (NORMAL) 05/20/21 15:15 Absolute Retic 0.061 10^6/uL (0.020-0.110) 05/21/21 07:47 Sodium 139 mmol/L (135-145) 05/22/21 05:05 Potassium 3.4 mmol/L (3.5-5.0) L 05/22/21 05:05 Chloride 99 mmol/L (101-111) L 05/22/21 05:05 Carbon Dioxide 31 mmol/L (21-32) 05/22/21 05:05 Anion Gap 9.0 (6-13) 05/22/21 05:05 BUN 9 mg/dL (6-20) 05/22/21 05:05 Creatinine 0.3 mg/dL (0.4-1.0) L 05/22/21 05:05 Estimated GFR (MDRD) 218 (>89) 05/22/21 05:05 Glucose 93 mg/dL (70-100) 05/22/21 05:05 Lactic Acid 1.1 mmol/L (0.5-2.2) 05/20/21 16:11 Calcium 8.5 mg/dL (8.5-10.3) 05/22/21 05:05 Iron 13 ug/dL (28-170) L 05/21/21 07:47 TIBC 321 ug/dL (250-450) 05/21/21 07:47 % Saturation 4 % (20-50) L 05/21/21 07:47 Transferrin 229 mg/dL (192-382) 05/21/21 07:47 Ferritin 11.1 ng/mL (11.0-306.8) 05/21/21 07:47 Total Bilirubin 0.6 mg/dL (0.2-1.0) 05/20/21 15:15 AST 18 IU/L (10-42) 05/20/21 15:15 ALT 25 IU/L (10-60) 05/20/21 15:15 Alkaline Phosphatase 93 IU/L (42-121) 05/20/21 15:15 Lactate Dehydrogenase 72 IU/L (91-225) L 05/21/21 07:47 Total Protein 8.5 g/dL (6.7-8.2) H 05/20/21 15:15 Albumin 3.2 g/dL (3.2-5.5) 05/20/21 15:15 Globulin 5.3 g/dL (2.1-4.2) H 05/20/21 15:15 Albumin/Globulin Ratio 0.6 (1.0-2.2) L 05/20/21 15:15 Lipase 28 U/L (22-51) 05/20/21 15:15 Vitamin B12 392 pg/mL (180-914) 05/21/21 07:47 TSH 1.77 uIU/mL (0.34-5.60) 05/20/21 15:15 Urine Color LT. YELLOW 05/20/21 16:08 Urine Clarity CLOUDY (CLEAR) 05/20/21 16:08 Urine pH 7.5 PH (5.0-7.5) 05/20/21 16:08 Ur Specific [place] 1.015 (1.002-1.030) 05/20/21 16:08 Urine Protein TRACE mg/dL (NEGATIVE) 05/20/21 16:08 Urine Glucose (UA) NEGATIVE mg/dL (NEGATIVE) 05/20/21 16:08 Urine Ketones NEGATIVE mg/dL (NEGATIVE) 05/20/21 16:08 Urine Occult Blood LARGE (NEGATIVE) H 05/20/21 16:08 Urine Nitrite POSITIVE (NEGATIVE) H 05/20/21 16:08 Urine Bilirubin NEGATIVE (NEGATIVE) 05/20/21 16:08 Urine Urobilinogen 0.2 (NORMAL) E.U./dL (NORMAL) 05/20/21 16:08 Ur Leukocyte Esterase LARGE (NEGATIVE) H 05/20/21 16:08 Urine RBC 6-10 /HPF (0-5) H 05/20/21 16:08 Urine WBC >25 /HPF (0-5) H 05/20/21 16:08 Ur Squamous Epith Cells FEW Squamous (<= Few) 05/20/21 16:08 Urine Bacteria Moderate /HPF (None Seen) H 05/20/21 16:08 Ur Microscopic Review INDICATED 05/20/21 16:08 Urine Culture Comments INDICATED 05/20/21 16:08 Nasal Adenovirus (PCR) NOT DETECTED 05/20/21 16:08 Nasal B. parapertussis DNA (PCR) NOT DETECTED 05/20/21 16:08 Nasal Coronavir 229E PCR NOT DETECTED 05/20/21 16:08 Nasal Coronavir HKU1 PCR NOT DETECTED 05/20/21 16:08 Nasal Coronavir NL63 PCR NOT DETECTED 05/20/21 16:08 Nasal Coronavir OC43 PCR NOT DETECTED 05/20/21 16:08 Nasal Enterovir/Rhinovir PCR NOT DETECTED 05/20/21 16:08 Nasal Influenza B PCR NOT DETECTED 05/20/21 16:08 Nasal Influenza A PCR NOT DETECTED 05/20/21 16:08 Nasal Parainfluen 1 PCR NOT DETECTED 05/20/21 16:08 Nasal Parainfluen 2 PCR NOT DETECTED 05/20/21 16:08 Nasal Parainfluen 3 PCR NOT DETECTED 05/20/21 16:08 Nasal Parainfluen 4 PCR NOT DETECTED 05/20/21 16:08 Nasal RSV (PCR) NOT DETECTED 05/20/21 16:08 Nasal B.pertussis DNA PCR NOT DETECTED 05/20/21 16:08 Nasal C.pneumoniae (PCR) NOT DETECTED 05/20/21 16:08 Sly Human Metapneumo PCR NOT DETECTED 05/20/21 16:08 Nasal M.pneumoniae (PCR) NOT DETECTED 05/20/21 16:08 Nasal SARS-CoV-2 (PCR) NOT DETECTED 05/20/21 16:08 Stl Occult Blood (IFOB) POSITIVE (NEGATIVE) A 05/21/21 12:20 Salicylates < 6.0 mg/dL 05/20/21 15:15 Urine Opiates Screen NEGATIVE (NEGATIVE) 05/20/21 16:08 Ur Oxycodone Screen NEGATIVE (NEGATIVE) 05/20/21 16:08 Urine Methadone Screen NEGATIVE (NEGATIVE) 05/20/21 16:08 Ur Propoxyphene Screen NEGATIVE (NEGATIVE) 05/20/21 16:08 Acetaminophen < 10 ug/mL (10-30) L 05/20/21 15:15 Ur Barbiturates Screen NEGATIVE (NEGATIVE) 05/20/21 16:08 Ur Tricyclics Screen NEGATIVE (NEGATIVE) 05/20/21 16:08 Ur Phencyclidine Scrn NEGATIVE (NEGATIVE) 05/20/21 16:08 Ur Amphetamine Screen NEGATIVE (NEGATIVE) 05/20/21 16:08 U Methamphetamines Scrn NEGATIVE (NEGATIVE) 05/20/21 16:08 U Benzodiazepines Scrn NEGATIVE (NEGATIVE) 05/20/21 16:08 Urine Cocaine Screen NEGATIVE (NEGATIVE) 05/20/21 16:08 U Cannabinoids Screen NEGATIVE (NEGATIVE) 05/20/21 16:08 Ethyl Alcohol < 5.0 mg/dL 05/20/21 15:15 - Procedures Procedures: Procedures EXCISION OF DUODENUM, ENDO, DIAGN (06/06/15) INSPECTION OF LOWER INTESTINAL TRACT, ENDO (05/04/18) ABX Reporting Has patient been on IV antibiotics over the past 48 hours?: Yes Current Medications - Current Medications Current Medications: Active Medications Acetaminophen (Acetaminophen 325 Mg Tablet) 650 mg PO Q4HR PRN PRN Reason: Pain 1 to 4 Last Admin: 05/21/21 13:20 Dose: 650 mg Documented by: Ascorbic Acid (Ascorbic Acid 500 Mg Tablet) 500 mg PO DAILY [facility] Last Admin: 05/22/21 09:04 Dose: 500 mg Documented by: Baclofen (Baclofen 10 Mg Tablet) 10 mg PO TID PRN PRN Reason: Spasms Duloxetine HCl (Duloxetine 30 Mg Capsule) 60 mg PO DAILY [facility] Last Admin: 05/22/21 09:05 Dose: 60 mg Documented by: Fentanyl (Fentanyl 25 Mcg Patch) 1 patch TOP Q3D [facility] Last Admin: 05/22/21 09:05 Dose: 1 patch Documented by: Ferrous Sulfate (Ferrous Sulfate 325 Mg Tablet) 325 mg PO BIDWM [facility] Last Admin: 05/22/21 09:04 Dose: 325 mg Documented by: Cefepime HCl 1 gm/ Sodium (Chloride) 100 mls @ 200 mls/hr IV BID [facility] Last Admin: 05/22/21 09:05 Dose: 200 mls/hr Documented by: Mineral Oil (Min Oil/Dimethicon/Coconut Oil 92 Gm Tube) 1 applic TOP PRN PRN PRN Reason: Skin Care Last Admin: 05/21/21 21:03 Dose: 1 applic Documented by: Ondansetron HCl (Ondansetron Odt 4 Mg Tablet) 4 mg TL Q6HR PRN PRN Reason: Nausea / Vomiting Ondansetron HCl (Ondansetron 4 Mg/2 Ml Vial) 4 mg IVP Q6HR PRN PRN Reason: Nausea / Vomiting Oxycodone HCl (Oxycodone 5 Mg Tablet) 5 mg PO Q4HR PRN PRN Reason: Pain 5 to 7 Last Admin: 05/20/21 22:41 Dose: 5 mg Documented by: Pantoprazole Sodium (Pantoprazole 40 Mg Tablet) 40 mg PO BID [facility] Prochlorperazine Edisylate (Prochlorperazine 10 Mg/2 Ml Vial) 10 mg IVP Q6HR PRN PRN Reason: Nausea / Vomiting Saccharomyces Boulardii (Saccharomyces Boulardii 250 Mg Capsule) 250 mg PO BIDWM [facility] Last Admin: 05/22/21 09:04 Dose: 250 mg Documented by: Sodium Chloride (Sodium Chloride Flush 0.9% 10 Ml Syringe) 10 ml IVP PRN PRN PRN Reason: NEEDED PER PROVIDER ORDERS Last Admin: 05/20/21 21:58 Dose: 10 ml Documented by: Sodium Chloride (Sodium Chloride Flush 0.9% 10 Ml Syringe) 10 ml IVP 0100,0900,1700 [facility] Last Admin: 05/22/21 09:07 Dose: 10 ml Documented by: Throat Lozenges (Benzocaine/Menthol Lozenge) 1 lozenge MM Q2HR PRN PRN Reason: Throat pain Last Admin: 05/21/21 07:04 Dose: 1 lozenge Documented by: Acetaminophen [Tylenol Extra Strength] 500 - 1,000 mg PO Q6HR PRN 01/28/18 Aspirin [Adult Aspirin] 81 mg PO DAILY 01/28/18 Bisacodyl Supp [Dulcolax Supp] 1 supp [place] DAILY PRN 01/28/18 Cholecalciferol (Vitamin D3) [Vitamin D3] 2,000 unit PO DAILY 01/28/18 Baclofen 10 mg PO TID 08/04/18 Calcium Carbonate [Tums (Calcium Carbonate 500mg)] 1,000 mg PO Q4HR PRN 11/09/18 DULoxetine [Cymbalta] 60 mg PO DAILY 11/09/18 Ferrous Gluconate [Iron] 240 mg PO DAILY 11/09/18 Lovastatin 10 mg PO QPM 11/09/18 Naloxone HCl 0.1 ml SLY PRN PRN 11/09/18 Sennosides [Senna Lax] 8.6 mg PO BID PRN 06/07/19 Albuterol Sulf [Ventolin Hfa Inhaler] 2 puffs INH Q4H PRN 08/23/20 Fluticasone/Salmeterol [Advair Hfa 115-21 Mcg Inhaler] 1 puffs IH BID 12/30/20 Oxybutynin Chloride [Ditropan Xl] 10 mg PO DAILY 12/30/20 Potassium Chloride [Micro-K] 40 meq PO DAILY 12/30/20 hydroCHLOROthiazide [Hydrochlorothiazide] 50 mg PO DAILY 12/30/20 fentaNYL [Fentanyl 25mcg patch] 1 each TD Q3D 12/31/20 D-Mannose [Azo D-Mannose] 500 mg PO TIDWM 01/26/21 Mineral Oil [Mineral Oil Enema] 1 ea RC DAILY PRN 05/21/21 polyethylene glycoL 3350 [Miralax] 17 gm PO BID PRN 05/21/21
[2021-05-22] MEDS: PANTOPRAZOLE 40 MG TABLET PO SCH ×2 (13:39→20:32)
--- NOTE | 2021-05-22 17:23 | CONSULTATION NOTE ---
Referring Provider Name of Referring Provider:: Ruiz Consult Date: 05/22/21 Chief Complaint - Chief Complaint Chief Complaint: GI hemorrhage History of Present Illness - Admitted From Admitted From:: ED - History Obtained From Exam Limitations: None - History of Present Illness HPI Comment/Other: Sangita is a very pleasant lady with multiple difficult and confounding medical issues who was admitted to the hospitalist service with recurrent UTI and mental status changes. She is being treated for UTI associated with neurogenic bladder and late stage MS. She was noted to have a drop in her hemoglobin on the day after admission and was found to have occult blood in her stool. She is on aspirin at home and that has been stopped. She is also on PPI while admitted. She denies any abdominal pain but admits she has other issues to think about. I have been consulted regarding the possibility of endoscopy. She had a CT in 2018 that showed a possible rectal mass and subsequently had a colonoscopy that was essentially normal. No mass was appreciated and minimal diverticulosis. History - Past Medical History Cardiovascular: reports: High cholesterol Respiratory: reports: None Neuro: reports: CVA, Peripheral neuropathy, Multiple sclerosis Endocrine/Autoimmune: reports: Other GI: reports: Hemorrhoids, Other (chronic constipation) MANAGER CCU: reports: Fibroids, Other () : reports: Incontinence, Chronic bladder infection HEENT: reports: Chronic vision loss Psych: reports: Depression, Anxiety Musculoskeletal: reports: Paraplegia, Other Derm: reports: Other (pressure ulcer of mitchell and sacrum in the past) MRSA Hx?: Yes Other Past Medical History: chronic anemia w colonscopy 2019 - Past Surgical History General: reports: Colonoscopy, EGD Ortho: reports: Other - Family & Social History Family History: Mother: , Father: Family History Comment/Other: She was unable to provide me with a family history. Review of [employer] shows mom to have had unlabeled "cancer" at her . Brother had renal cancer. Living arrangement: correction Living Situation: With caregiver(s) Social History Notes: She was from [place], born and raised there. [place] to be with family (Uncle) off and on. Moved here when she met someone from the [place]. They were until his in February 2016. She resides at [facility] since 2018. She told me that she has a remote smoking history. Denies alcohol use. - Substance History Use: Uses substance without health or social issues: NONE Abuse: Recurrent use of substance despite neg consequences: NONE Dependence: Experiences withdrawal or developed tolerances: NONE - POLST Patient has POLST: Yes POLST Status: DNR (Advanced care planning. Patient does have D POA which is her son Adan, has a POLST in place with the [facility] and selective treatments. She is quite thoughtful and pragmatic and wane benefits and burdens of medical interventions and appointments. We will continue to anticipate decline in the future,) Meds/Allgy - Home Medications Home Medications: Ambulatory Orders Medication Instructions Recorded Confirmed Acetaminophen [Tylenol Extra 500 - 1,000 mg PO Q6HR PRN 01/28/18 05/21/21 Strength] Aspirin [Adult Aspirin] 81 mg PO DAILY 01/28/18 05/20/21 Bisacodyl Supp [Dulcolax Supp] 1 supp [place] DAILY PRN 01/28/18 05/21/21 Cholecalciferol (Vitamin D3) 2,000 unit PO DAILY 01/28/18 05/20/21 [Vitamin D3] Baclofen 10 mg PO TID 08/04/18 05/20/21 Calcium Carbonate [Tums (Calcium 1,000 mg PO Q4HR PRN 11/09/18 05/21/21 Carbonate 500mg)] DULoxetine [Cymbalta] 60 mg PO DAILY 11/09/18 05/20/21 Ferrous Gluconate [Iron] 240 mg PO DAILY 11/09/18 05/20/21 Lovastatin 10 mg PO QPM 11/09/18 05/20/21 Naloxone HCl 0.1 ml SLY PRN PRN 11/09/18 05/21/21 Sennosides [Senna Lax] 8.6 mg PO BID PRN 06/07/19 05/21/21 Albuterol Sulf [Ventolin Hfa 2 puffs INH Q4H PRN 08/23/20 05/21/21 Inhaler] Fluticasone/Salmeterol [Advair Hfa 1 puffs IH BID 12/30/20 05/20/21 115-21 Mcg Inhaler] Oxybutynin Chloride [Ditropan Xl] 10 mg PO DAILY 12/30/20 05/21/21 Potassium Chloride [Micro-K] 40 meq PO DAILY 12/30/20 05/20/21 hydroCHLOROthiazide 50 mg PO DAILY 12/30/20 05/20/21 [Hydrochlorothiazide] fentaNYL [Fentanyl 25mcg patch] 1 each TD Q3D 12/31/20 05/20/21 D-Mannose [Azo D-Mannose] 500 mg PO TIDWM 01/26/21 05/21/21 Mineral Oil [Mineral Oil Enema] 1 ea RC DAILY PRN 05/21/21 05/21/21 polyethylene glycoL 3350 [Miralax] 17 gm PO BID PRN 05/21/21 05/21/21 - Allergies Allergies/Adverse Reactions: Allergies Allergy/AdvReac Type Severity Reaction Status Date / Time nystatin Allergy Unknown Verified 05/20/21 15:00 Penicillins Allergy Unknown Verified 05/20/21 15:00 Review of Systems - Other Findings Other Findings: See HPI and Hospitalist notes with extensive documentation Exam - Vital Signs Reviewed Vital Signs: Yes Vital Signs: Vital Signs x48h Temp Pulse Resp BP Pulse Ox 05/22/21 16:00 37.1 C 79 20 138/74 H 94 - Physical Exam General Appearance: positive: No acute distress Eyes Bilateral: positive: Normal inspection ENT: positive: Pharynx nml Respiratory: positive: No respiratory distress Abdomen: positive: Non-tender, Nml bowel sounds, No distention Neurologic/Psychiatric: positive: Oriented x3 Conclusion and Plan - Lab Results Microbiology Results 05/20/21 16:11 Blood Blood Culture (PCR) - Final Laboratory Results 05/22/21 05:05: Sodium 139, Potassium 3.4 L, Chloride 99 L, Carbon Dioxide 31, Anion Gap 9.0, BUN 9, Creatinine 0.3 L, Estimated GFR (MDRD) 218, Glucose 93, Calcium 8.5 05/22/21 05:05: WBC 12.1 H, RBC 3.37 L, Hgb 7.9 L, Hct 26.9 L, MCV 79.8 L, MCH 23.4 L, MCHC 29.4 L, RDW 16.4 H, Plt Count 597 H, MPV 9.6, Neut # (Auto) 7.4 H, Lymph # (Auto) 3.4, [place] # (Auto) 0.7, Eos # (Auto) 0.5, Baso # (Auto) 0.1, Absolute Nucleated RBC 0.00, Nucleated RBC % 0.0 05/21/21 19:05: Hgb 7.9 L, Hct 26.6 L 05/21/21 12:20: Stl Occult Blood (IFOB) POSITIVE A 05/21/21 07:47: Lactate Dehydrogenase 72 L 05/21/21 07:47: Ferritin 11.1, Vitamin B12 392 05/21/21 07:47: Iron 13 L, TIBC 321, % Saturation 4 L, Transferrin 229 05/21/21 07:47: RBC 3.21 L, Reticulocyte % (Auto) 1.89, Absolute Retic 0.061 05/21/21 05:19: Sodium 139, Potassium 3.9, Chloride 102, Carbon Dioxide 30, Anion Gap 7.0, BUN 12, Creatinine < 0.3 L, Estimated GFR (MDRD) TNP, Glucose 96, Calcium 8.4 L 05/21/21 05:19: WBC 14.9 H, RBC 3.24 L, Hgb 7.7 L, Hct 26.4 L, MCV 81.5, MCH 23.8 L, MCHC 29.2 L, RDW 16.5 H, Plt Count 506 H, MPV 9.0, Neut # (Auto) 9.3 H, Lymph # (Auto) 4.0 H, [place] # (Auto) 0.9, Eos # (Auto) 0.5, Baso # (Auto) 0.1, Absolute Nucleated RBC 0.00, Nucleated RBC % 0.0 - Diagnosis Diagnosis: Heme positive stool - Consultation Note Consultation Note: I agree with need for EGD. If the EGD is unrevealing, we can consider colonoscopy. I have discussed the risks and benefits of the procedure with her and she seems to understand. Consent has been signed - Plan Plan: EGD has been schedule for 730 in the AM.
--- NOTE | 2021-05-22 17:33 | ADVANCE CARE PLANNING NOTE ---
Advance Care Planning - Planning Encounter Date: 05/22/21 Time: 17:32 Purpose: Advance care planning for patient Parties in Attendance: Patient and me Decisional Capacity of the Patient: Patient is alert and orientated on today. patient has full capacity to make her own decision now - Encounter Subjective/Patient's Story: pt had recently January 2021 POLST forum which stated she is full code with full treatment. But [employer] now show pt is DNR. I went to discuss with pt about her code status. pt is alert and oriented today. Surgeon also report she signed surgery consent for her tomorrow EGD. Pt report she is very much enjoying her current life although she recognized she had advance MS disease. 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 she is stilling very enjoying listening different music and watching dance. she report she had one son and one daughter with grandchildren. she is very enjoying with her whole family together. she just speak with her son on yesterday. Clearly pt want to be full code. She recognized because of this Covid 19 pandemic, her family is difficulty to get together now. Because of her advanced MS, she became very difficult to take care of herself. She became resides at [facility] since 2018. She was from [place], she was born and raised at there. she C[place] the [place] to be with family (Uncle) and she met her from the [place]. They were until her in February 2016. her PCP is Vega Richardson at [facility]. Objective/Medical Story: This is 71-year-old female with multiple sclerosis, defined as latent stage. she had chronic indwelling Good. She has recurrent and frequent urinary tract infections. She has known neurogenic bladder and neurogenic bowel. She has long- standing chronic pain with spasticity for which she is on a baclofen pump. she had recurrent pressure ulcers. She has had a stage III decubitus ulcer in the past, due to contractions on her right mitchell, ischium, as well as sacrum in the past. She has been followed at the wound clinic here and at the hospital. She is mostly bedbound at [facility] on [place]. she does have a wheelchair that she is able to go to meals in and out several times per day. Goals of Care: Stabilization and improvement of her medical conditions, return to [facility] in [place]. Plan: Continue antibiotics to treat for her UTI and possible bacteremia, we will have EGD on tomorrow to evaluate her GI bleed, Return to [facility] on [place] after she becomes stabilization. Change her CODE STATUS from DNR to full code Code Status: Attempt Resuscitation Time spent on advance care plannin
[2021-05-22 18:55] LABS: HGB - HEMOGLOBIN 8.8 g/dL (12.0-16.0)
[2021-05-23] MEDS ORDERED: SODIUM CHLORIDE 0.9% 1,000 ML IV SCH (01:00)
[2021-05-23 05:52] LABS: BASOPHILS # (AUTO) 0.1 10^3/uL (0.0-0.1); BASOPHILS % (AUTO) 0.9 %; EOSINOPHILS # (AUTO) 0.6 10^3/uL (0.0-0.7); EOSINOPHILS % (AUTO) 4.5 %; HCT - HEMATOCRIT 27.8 % (37.0-47.0); HGB - HEMOGLOBIN 8.2 g/dL (12.0-16.0); LYMPHOCYTES # (AUTO) 2.9 10^3/uL (1.5-3.5); LYMPHOCYTES % (AUTO) 23.3 %; MEAN CORPUSCULAR HEMOGLOBIN 23.6 pg (27.0-31.0); MEAN CORPUSCULAR HGB CONC 29.5 g/dL (32.0-36.0); MEAN CORPUSCULAR VOLUME 80.1 fL (81.0-99.0); MEAN PLATELET VOLUME 9.1 fL (7.9-10.8); MONOCYTES # (AUTO) 0.8 10^3/uL (0.0-1.0); MONOCYTES % (AUTO) 6.3 %; NEUTROPHILS # (AUTO) 7.9 10^3/uL (1.5-6.6); NEUTROPHILS % (AUTO) 64.6 %; PLT - PLATELET COUNT 552 10^3/uL (130-450); RED BLOOD COUNT 3.47 10^6/uL (4.20-5.40); RED CELL DISTRIBUTION WIDTH 16.2 % (12.0-15.0); WHITE BLOOD COUNT 12.3 x10^3/uL (4.8-10.8)
[2021-05-23 05:59] LABS: CALCIUM 8.4 mg/dL (8.5-10.3); CREATININE 0.3 mg/dL (0.4-1.0); POTASSIUM 3.5 mmol/L (3.5-5.0)
[2021-05-23] MEDS ORDERED: PROPOFOL 500 MG/50 ML 500 MG/50 ML VIAL ONE ×2 (07:01→16:51)
[2021-05-23] MEDS ORDERED: LIDOCAINE-MPF 2% 5 ML VIAL ONE ×2 (07:01→16:51)
--- NOTE | 2021-05-23 07:22 | ANESTHESIA ---
Pre-Anesthesia VS, & Labs - Diagnosis Diagnosis Heme positive stool - Procedure EGD Vital Signs: Temp Pulse Resp BP Pulse Ox 36.7 C 62 16 112/78 93 05/22/21 23:58 05/22/21 23:58 05/22/21 23:58 05/22/21 23:58 05/22/21 23:58 Height: 5 ft 2 in Weight (kg): 64 kg Body Mass Index: 25.8 BMI Classification: Overweight - NPO >8 hours - Is Patient ?: No - Lab Results Current Lab Results: Laboratory Tests 05/23/21 05:42: Sodium 140, Potassium 3.5, Chloride 100 L, Carbon Dioxide 30, Anion Gap 10.0, BUN 9, Creatinine 0.3 L, Estimated GFR (MDRD) 218, Glucose 95, Calcium 8.4 L 05/23/21 05:42: WBC 12.3 H, RBC 3.47 L, Hgb 8.2 L, Hct 27.8 L, MCV 80.1 L, MCH 23.6 L, MCHC 29.5 L, RDW 16.2 H, Plt Count 552 H, MPV 9.1, Neut # (Auto) 7.9 H, Lymph # (Auto) 2.9, [place] # (Auto) 0.8, Eos # (Auto) 0.6, Baso # (Auto) 0.1, Absolute Nucleated RBC 0.00, Nucleated RBC % 0.0 05/22/21 18:52: Hgb 8.8 L, Hct 30.0 L 05/22/21 05:05: Sodium 139, Potassium 3.4 L, Chloride 99 L, Carbon Dioxide 31, Anion Gap 9.0, BUN 9, Creatinine 0.3 L, Estimated GFR (MDRD) 218, Glucose 93, Calcium 8.5 05/22/21 05:05: WBC 12.1 H, RBC 3.37 L, Hgb 7.9 L, Hct 26.9 L, MCV 79.8 L, MCH 23.4 L, MCHC 29.4 L, RDW 16.4 H, Plt Count 597 H, MPV 9.6, Neut # (Auto) 7.4 H, Lymph # (Auto) 3.4, [place] # (Auto) 0.7, Eos # (Auto) 0.5, Baso # (Auto) 0.1, Absolute Nucleated RBC 0.00, Nucleated RBC % 0.0 05/21/21 19:05: Hgb 7.9 L, Hct 26.6 L 05/21/21 07:47: Lactate Dehydrogenase 72 L 05/21/21 07:47: Ferritin 11.1, Vitamin B12 392 05/21/21 07:47: Iron 13 L, TIBC 321, % Saturation 4 L, Transferrin 229 05/21/21 07:47: RBC 3.21 L, Reticulocyte % (Auto) 1.89, Absolute Retic 0.061 05/21/21 05:19: Sodium 139, Potassium 3.9, Chloride 102, Carbon Dioxide 30, Anion Gap 7.0, BUN 12, Creatinine < 0.3 L, Estimated GFR (MDRD) TNP, Glucose 96, Calcium 8.4 L 05/21/21 05:19: WBC 14.9 H, RBC 3.24 L, Hgb 7.7 L, Hct 26.4 L, MCV 81.5, MCH 23.8 L, MCHC 29.2 L, RDW 16.5 H, Plt Count 506 H, MPV 9.0, Neut # (Auto) 9.3 H, Lymph # (Auto) 4.0 H, [place] # (Auto) 0.9, Eos # (Auto) 0.5, Baso # (Auto) 0.1, Absolute Nucleated RBC 0.00, Nucleated RBC % 0.0 05/20/21 16:11: Lactic Acid 1.1 05/20/21 16:08: Urine Opiates Screen NEGATIVE, Ur Oxycodone Screen NEGATIVE, Urine Methadone Screen NEGATIVE, Ur Propoxyphene Screen NEGATIVE, Ur B arbiturates Screen NEGATIVE, Ur Tricyclics Screen NEGATIVE, Ur Phencyclidine Scrn NEGATIVE, Ur Amphetamine Screen NEGATIVE, U Methamphetamines Scrn NEGATIVE, U Benzodiazepines Scrn NEGATIVE, Urine Cocaine Screen NEGATIVE, U Cannabinoids Screen NEGATIVE 05/20/21 15:15: TSH 1.77 05/20/21 15:15: Sodium 136, Potassium 3.5, Chloride 92 L, Carbon Dioxide 33 H, Anion Gap 11.0, BUN 17, Creatinine 0.3 L, Estimated GFR (MDRD) 218, Glucose 127 H, Calcium 9.1, Total Bilirubin 0.6, AST 18, ALT 25, Alkaline Phosphatase 93, Total Protein 8.5 H, Albumin 3.2, Globulin 5.3 H, Albumin/Globulin Ratio 0.6 L, Lipase 28, Salicylates < 6.0, Acetaminophen < 10 L, Ethyl Alcohol < 5.0 05/20/21 15:15: WBC 16.3 H, RBC 3.99 L, Hgb 9.4 L, Hct 32.5 L, MCV 81.5, MCH 23.6 L, MCHC 28.9 L, RDW 16.6 H, Plt Count 602 H, MPV 9.0, Neut # (Auto) 12.1 H, Lymph # (Auto) 2.8, [place] # (Auto) 0.9, Eos # (Auto) 0.4, Baso # (Auto) 0.1, Absolute Nucleated RBC 0.00, Nucleated RBC % 0.0, Manual Slide Review Indicated, WBC Morphology NORMAL APPEARANCE, Platelet Estimate INCREASED (>450,000), Platelet Morphology 1+ GIANT PLATELETS, RBC Morph Micro Appear 1+ POLYCHROMASIA Lab results reviewed: Yes Fish Bones: 05/23/21 05:42 05/23/21 05:42 Home Medications and Allergies Home Medications: Ambulatory Orders Mineral Oil [Mineral Oil Enema] 1 ea RC DAILY PRN 05/21/21 polyethylene glycoL 3350 [Miralax] 17 gm PO BID PRN 05/21/21 Active Medications Acetaminophen (Acetaminophen 325 Mg Tablet) 650 mg PO Q4HR PRN PRN Reason: Pain 1 to 4 Last Admin: 05/21/21 13:20 Dose: 650 mg Documented by: Ascorbic Acid (Ascorbic Acid 500 Mg Tablet) 500 mg PO DAILY [facility] Last Admin: 05/22/21 09:04 Dose: 500 mg Documented by: Baclofen (Baclofen 10 Mg Tablet) 10 mg PO TID PRN PRN Reason: Spasms Duloxetine HCl (Duloxetine 30 Mg Capsule) 60 mg PO DAILY [facility] Last Admin: 05/22/21 09:05 Dose: 60 mg Documented by: Fentanyl (Fentanyl 25 Mcg Patch) 1 patch TOP Q3D [facility] Last Admin: 05/22/21 09:05 Dose: 1 patch Documented by: Ferrous Sulfate (Ferrous Sulfate 325 Mg Tablet) 325 mg PO BIDWM [facility] Last Admin: 05/22/21 17:15 Dose: 325 mg Documented by: Cefepime HCl 1 gm/ Sodium (Chloride) 100 mls @ 200 mls/hr IV BID [facility] Last Infusion: 05/22/21 21:05 Dose: Infused Documented by: Sodium Chloride (Normal Saline 0.9%) 1,000 mls @ 83.333 mls/hr IV .Q12H [facility] Stop: 05/23/21 12:59 Last Admin: 05/23/21 00:00 Dose: 83.333 mls/hr Documented by: Mineral Oil (Min Oil/Dimethicon/Coconut Oil 92 Gm Tube) 1 applic TOP PRN PRN PRN Reason: Skin Care Last Admin: 05/21/21 21:03 Dose: 1 applic Documented by: Ondansetron HCl (Ondansetron Odt 4 Mg Tablet) 4 mg TL Q6HR PRN PRN Reason: Nausea / Vomiting Ondansetron HCl (Ondansetron 4 Mg/2 Ml Vial) 4 mg IVP Q6HR PRN PRN Reason: Nausea / Vomiting Oxycodone HCl (Oxycodone 5 Mg Tablet) 5 mg PO Q4HR PRN PRN Reason: Pain 5 to 7 Last Admin: 05/20/21 22:41 Dose: 5 mg Documented by: Pantoprazole Sodium (Pantoprazole 40 Mg Tablet) 40 mg PO BID [facility] Last Admin: 05/22/21 20:32 Dose: 40 mg Documented by: Prochlorperazine Edisylate (Prochlorperazine 10 Mg/2 Ml Vial) 10 mg IVP Q6HR PRN PRN Reason: Nausea / Vomiting Saccharomyces Boulardii (Saccharomyces Boulardii 250 Mg Capsule) 250 mg PO BIDWM [facility] Last Admin: 05/22/21 17:15 Dose: 250 mg Documented by: Sodium Chloride (Sodium Chloride Flush 0.9% 10 Ml Syringe) 10 ml IVP PRN PRN PRN Reason: NEEDED PER PROVIDER ORDERS Last Admin: 05/20/21 21:58 Dose: 10 ml Documented by: Sodium Chloride (Sodium Chloride Flush 0.9% 10 Ml Syringe) 10 ml IVP 0100,0900,1700 [facility] Last Admin: 05/23/21 00:00 Dose: 10 ml Documented by: Throat Lozenges (Benzocaine/Menthol Lozenge) 1 lozenge MM Q2HR PRN PRN Reason: Throat pain Last Admin: 05/21/21 07:04 Dose: 1 lozenge Documented by: Acetaminophen [Tylenol Extra Strength] 500 - 1,000 mg PO Q6HR PRN 01/28/18 Aspirin [Adult Aspirin] 81 mg PO DAILY 01/28/18 Bisacodyl Supp [Dulcolax Supp] 1 supp SD DAILY PRN 01/28/18 Cholecalciferol (Vitamin D3) [Vitamin D3] 2,000 unit PO DAILY 01/28/18 Baclofen 10 mg PO TID 08/04/18 Calcium Carbonate [Tums (Calcium Carbonate 500mg)] 1,000 mg PO Q4HR PRN 11/09/18 DULoxetine [Cymbalta] 60 mg PO DAILY 11/09/18 Ferrous Gluconate [Iron] 240 mg PO DAILY 11/09/18 Lovastatin 10 mg PO QPM 11/09/18 Naloxone HCl 0.1 ml SLY PRN PRN 11/09/18 Sennosides [Senna Lax] 8.6 mg PO BID PRN 06/07/19 Albuterol Sulf [Ventolin Hfa Inhaler] 2 puffs INH Q4H PRN 08/23/20 Fluticasone/Salmeterol [Advair Hfa 115-21 Mcg Inhaler] 1 puffs IH BID 12/30/20 Oxybutynin Chloride [Ditropan Xl] 10 mg PO DAILY 12/30/20 Potassium Chloride [Micro-K] 40 meq PO DAILY 12/30/20 hydroCHLOROthiazide [Hydrochlorothiazide] 50 mg PO DAILY 12/30/20 fentaNYL [Fentanyl 25mcg patch] 1 each TD Q3D 12/31/20 D-Mannose [Azo D-Mannose] 500 mg PO TIDWM 01/26/21 Mineral Oil [Mineral Oil Enema] 1 ea RC DAILY PRN 05/21/21 polyethylene glycoL 3350 [Miralax] 17 gm PO BID PRN 05/21/21 Allergies/Adverse Reactions: Allergies Allergy/AdvReac Type Severity Reaction Status Date / Time nystatin Allergy Unknown Verified 05/20/21 15:00 Penicillins Allergy Unknown Verified 05/20/21 15:00 Anes History & Medical History - Anesthetic History Anesthesia Complications: reports: No previous complications Family history of Anesthesia Complications: Denies Family history of Malignant Hyperthermia: Denies - Medical History Cardiovascular: reports: High cholesterol Pulmonary: reports: None Gastrointestinal: reports: Hemorrhoids, Other (chronic constipation) Urinary: reports: Incontinence, Chronic bladder infection Neuro: reports: CVA, Peripheral neuropathy, Multiple sclerosis Musculoskeletal: reports: Paraplegia, Other Endocrine/Autoimmune: reports: Other Blood Disorders: reports: None Skin: reports: Other (pressure ulcer of mitchell and sacrum in the past) Smoking Status: Former smoker Other Past Medical History: chronic anemia w colonscopy 2019 - Surgical History General: reports: Colonoscopy, EGD Urologic: reports: Ureterolithotomy (stones) Orthopedic: reports: Other Exam General: Alert, Oriented x3, Cooperative, No acute distress Dental: Poor dentition Mouth Openin Fingerbreadth Neck Mobility: Reduced Mallampati classification: III Respiratory: Lungs clear, Normal breath sounds, No respiratory distress, No accessory muscle use Cardiovascular: Regular rate, Normal S1, Normal S2, No murmurs Plan Anesthesia Type: General, Total IV Consent for Procedure(s) Verified and Reviewed: Yes Code Status: Attempt Resuscitation ASA classification: 4-Incapacitating disease Is this case an emergency?: No
[2021-05-23] MEDS: PANTOPRAZOLE 40 MG TABLET PO SCH ×2 (08:39→20:34)
[2021-05-23] MEDS: SACCHAROMYCES BOULARDII 250 MG CAPSULE PO SCH ×2 (08:39→17:51)
[2021-05-23] MEDS: CEFEPIME 1 GM in SODIUM CHLORIDE 0.9% MINIBAG 100 ML IV SCH (08:39)
[2021-05-23] MEDS: DULoxetine 30 MG CAPSULE PO SCH (08:39)
[2021-05-23] MEDS: FERROUS SULFATE 325 MG TABLET PO SCH ×2 (08:40→17:51)
[2021-05-23] MEDS: BACLOFEN 10 MG TABLET PO PRN (08:40)
[2021-05-23] MEDS: SODIUM CHLORIDE FLUSH 0.9% 10 ML SYRINGE IVP SCH ×4 (08:40→20:35)
[2021-05-23] MEDS: ASCORBIC ACID 500 MG TABLET PO SCH (08:40)
[2021-05-23] MEDS ORDERED: D5.45NS W/20 MEQ KCL 1,000 ML IV SCH (09:00)
[2021-05-23 11:06] LABS: HCT - HEMATOCRIT 27.4 % (37.0-47.0); HGB - HEMOGLOBIN 8.1 g/dL (12.0-16.0)
--- NOTE | 2021-05-23 11:29 | PROVIDER PROGRESS NOTE ---
Assessment/Plan - Problem List (1) Bacteremia Assessment/Plan: 05/23 repeated blood culture is negative, it is likely contaminated. Patient's blood culture show one tube is positive with Gram-positive staph, PCR show coagulase negative staph which is similar with UA culture's bacterial. it is possible contamination, repeat blood culture and continue treat with antibiotics, WBC is treaded down now. (2)GI bleeding 05/23 pt will have EGD on later this afternoon, continue Protonix, continue H&H monitor Patient's occult stool test is positive for blood. HGB was dropped on yesterday then is stable now. hold blood thinner, add Protonic and H&H monitor called surgeon, she will see pt (3) Altered mental status 05-23 resolved - resolved. pt is alert and oriented. 112, -Significantly improved. Patient is alert and orientated. It is likely caused by acute infection from her UTI. Patient has chronic Indwelling urinary catheter, We will change into new catheter, Continue antibiotics, add probiotics Plan is for return to her nursing facility. (4) Urinary tract infection 05-23 UA sensitivity study is pending. Patient had multiple UTI infection before and had resistance bacteria in the past. Continue cefepime, We will de-escalate antibiotics after have sensitivity study 05-22 Your culture show positive for gram-positive, We will continue antibiotics, UA sensitivity study is pending Patient had multiple times of urinary tract infection, she had chronic urinary indwelling catheter. According to her previous culture, we will switch to cefepime. We will according to UA culture, and adjust antibiotics. Blood culture is pending. 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 pt has baclofen pump, She has been followed in the past by palliative care consultative service. Patient may continue follow-up with palliative care in nursing facility (6) Chronic anemia Conclusion/Plan: 05-23 stable, will finish EGD, continue iron supplement and protonix. 05-22 pt Had significantly iron deficiency, will continue supplemental iron on for patient. Patient also has GI bleed, we consulted with GI surgeon, will followup. Patient hemoglobin is down 7.7 today. Has hx of chronic anemia. Colonoscopy in the past was negative. Iron studies show iron deficiency, check occult stool test, Order iron pills, H&H (7)sacral pressure ulcer, stage 1 pt has hx of chronic Decubitus pressure ulcers. Continue turn and reposition and skin care by nurse protocol, and continue dressing change - Current Meds Current Meds: Current Medications Generic Name Dose Route Start Last Admin Trade Name Freq PRN Reason Stop Dose Admin Acetaminophen 650 mg 05/20/21 19:50 05/21/21 13:20 Acetaminophen 325 Mg Tablet PO 650 mg Q4HR PRN Administration Pain 1 to 4 Ascorbic Acid 500 mg 05/21/21 09:00 05/23/21 08:40 Ascorbic Acid 500 Mg Tablet PO 500 mg DAILY JOSE FRANCISCO Administration Baclofen 10 mg 05/20/21 21:32 05/23/21 08:40 Baclofen 10 Mg Tablet PO 10 mg TID PRN Administration Spasms Duloxetine HCl 60 mg 05/21/21 09:00 05/23/21 08:39 Duloxetine 30 Mg Capsule PO 60 mg DAILY JOSE FRANCISCO Administration Fentanyl 1 patch 05/22/21 08:00 05/22/21 09:05 Fentanyl 25 Mcg Patch TOP 1 patch Q3D JOSE FRANCISCO Administration Ferrous Sulfate 325 mg 05/21/21 17:00 05/23/21 08:40 Ferrous Sulfate 325 Mg Tablet PO 325 mg BIDWM JOSE FRANCISCO Administration Cefepime HCl 1 gm/ Sodium 100 mls @ 200 mls/hr 05/21/21 09:00 05/23/21 08:39 Chloride IV 200 mls/hr BID JOSE FRANCISCO Administration Potassium Chloride/Dextrose/Sod Cl 1,000 mls @ 100 mls/hr 05/23/21 09:00 05/23/21 08:56 D5.45ns W/20 Meq Kcl IV 05/23/21 18:59 100 mls/hr .Q10H JOSE FRANCISCO Administration Mineral Oil 1 applic 05/21/21 17:37 05/21/21 21:03 Min Oil/Dimethicon/Coconut Oil 92 Gm Tube TOP 1 applic PRN PRN Administration Skin Care Oxycodone HCl 5 mg 05/20/21 19:50 05/20/21 22:41 Oxycodone 5 Mg Tablet PO 5 mg Q4HR PRN Administration Pain 5 to 7 Pantoprazole Sodium 40 mg 05/22/21 12:00 05/23/21 08:39 Pantoprazole 40 Mg Tablet PO 40 mg BID JOSE FRANCISCO Administration Saccharomyces Boulardii 250 mg 05/21/21 08:00 05/23/21 08:39 Saccharomyces Boulardii 250 Mg Capsule PO 250 mg BIDWM JOSE FRANCISCO Administration Sodium Chloride 10 ml 05/20/21 19:50 05/20/21 21:58 Sodium Chloride Flush 0.9% 10 Ml Syringe IVP 10 ml PRN PRN Administration NEEDED PER PROVIDER ORDERS Sodium Chloride 10 ml 05/21/21 01:00 05/23/21 08:40 Sodium Chloride Flush 0.9% 10 Ml Syringe IVP 10 ml 0100,0900,1700 JOSE FRANCISCO Administration Throat Lozenges 1 lozenge 05/21/21 04:26 05/21/21 07:04 Benzocaine/Menthol Lozenge MM 1 lozenge Q2HR PRN Administration Throat pain - Lab Result Fish Bone Diagrams: 05/23/21 11:00 05/23/21 05:42 - Additional Planning My Orders: My Active Orders 05/22/21 12:00 Pantoprazole [Protonix] 40 mg PO BID 05/22/21 17:30 Code Status [OTHERS] Routine 05/23/21 09:00 D5.45ns W/20 Meq KCl 1,000 ml IV 100 mls/hr 05/23/21 Lunch Clear Liquid Diet [DIET] 05/23/21 11:16 Miscellaenous Nursing Order [RC] DAILY 05/23/21 Dinner Soft (Low Fiber) Diet [DIET] Subjective - Subjective Patient Reports: Feeling Better, Resting Comfortably Objective Vital Signs: Vital Signs - 24 hr 05/22/21 05/22/21 05/23/21 16:00 23:58 08:15 Temperature 37.1 C 36.7 C 36.8 C Heart Rate [ 79 62 74 Brachial] Respiratory 20 16 18 Rate Blood Pressure 138/74 H 112/78 118/66 [Right Brachial artery] O2 Saturation 94 93 92 Oxygen O2 Source Room air I&O (Last 24 Hrs): Intake and Output Totals x24h 05/21/21 05/22/21 05/23/21 23:59 23:59 23:59 Intake Total 5080 2130 Output Total 4400 3000 425 Balance 095 -100 -425 General: Alert, Oriented x3, Cooperative, No acute distress HEENT: Atraumatic Neck: Supple Lymphatic: no adenopathy Neuro: Alert, Non Focal, Oriented Times 3 Cardiovascular: Regular rate, Normal S1, Normal S2 Respiratory: Chest non-tender, No respiratory distress Abdomen: Normal bowel sounds, Soft Extremities: Normal pulses - Results Results: Laboratory Results WBC 12.3 x10^3/uL (4.8-10.8) H 05/23/21 05:42 RBC 3.47 10^6/uL (4.20-5.40) L 05/23/21 05:42 Hgb 8.1 g/dL (12.0-16.0) L 05/23/21 11:00 Hct 27.4 % (37.0-47.0) L 05/23/21 11:00 MCV 80.1 fL (81.0-99.0) L 05/23/21 05:42 MCH 23.6 pg (27.0-31.0) L 05/23/21 05:42 MCHC 29.5 g/dL (32.0-36.0) L 05/23/21 05:42 RDW 16.2 % (12.0-15.0) H 05/23/21 05:42 Plt Count 552 10^3/uL (130-450) H 05/23/21 05:42 MPV 9.1 fL (7.9-10.8) 05/23/21 05:42 Reticulocyte % (Auto) 1.89 % (0.5-2.3) 05/21/21 07:47 Neut # (Auto) 7.9 10^3/uL (1.5-6.6) H 05/23/21 05:42 Lymph # (Auto) 2.9 10^3/uL (1.5-3.5) 05/23/21 05:42 [place] # (Auto) 0.8 10^3/uL (0.0-1.0) 05/23/21 05:42 Eos # (Auto) 0.6 10^3/uL (0.0-0.7) 05/23/21 05:42 Baso # (Auto) 0.1 10^3/uL (0.0-0.1) 05/23/21 05:42 Absolute Nucleated RBC 0.00 x10^3/uL 05/23/21 05:42 Nucleated RBC % 0.0 /100WBC 05/23/21 05:42 Manual Slide Review Indicated 05/20/21 15:15 WBC Morphology NORMAL APPEARANCE (NORMAL) 05/20/21 15:15 Platelet Estimate INCREASED (>450,000) (NORMAL) 05/20/21 15:15 Platelet Morphology 1+ GIANT PLATELETS (NORMAL) 05/20/21 15:15 RBC Morph Micro Appear 2+ ANISOCYTOSIS (NORMAL) 2+ HYPOCHROMASIA (NORMAL) 1+ POLYCHROMASIA (NORMAL) 05/20/21 15:15 RBC Morph Micro Appear 2+ ANISOCYTOSIS (NORMAL) 2+ HYPOCHROMASIA (NORMAL) 1+ POLYCHROMASIA (NORMAL) 05/20/21 15:15 RBC Morph Micro Appear 2+ ANISOCYTOSIS (NORMAL) 2+ HYPOCHROMASIA (NORMAL) 1+ POLYCHROMASIA (NORMAL) 05/20/21 15:15 Absolute Retic 0.061 10^6/uL (0.020-0.110) 05/21/21 07:47 Sodium 140 mmol/L (135-145) 05/23/21 05:42 Potassium 3.5 mmol/L (3.5-5.0) 05/23/21 05:42 Chloride 100 mmol/L (101-111) L 05/23/21 05:42 Carbon Dioxide 30 mmol/L (21-32) 05/23/21 05:42 Anion Gap 10.0 (6-13) 05/23/21 05:42 BUN 9 mg/dL (6-20) 05/23/21 05:42 Creatinine 0.3 mg/dL (0.4-1.0) L 05/23/21 05:42 Estimated GFR (MDRD) 218 (>89) 05/23/21 05:42 Glucose 95 mg/dL (70-100) 05/23/21 05:42 Lactic Acid 1.1 mmol/L (0.5-2.2) 05/20/21 16:11 Calcium 8.4 mg/dL (8.5-10.3) L 05/23/21 05:42 Iron 13 ug/dL (28-170) L 05/21/21 07:47 TIBC 321 ug/dL (250-450) 05/21/21 07:47 % Saturation 4 % (20-50) L 05/21/21 07:47 Transferrin 229 mg/dL (192-382) 05/21/21 07:47 Ferritin 11.1 ng/mL (11.0-306.8) 05/21/21 07:47 Total Bilirubin 0.6 mg/dL (0.2-1.0) 05/20/21 15:15 AST 18 IU/L (10-42) 05/20/21 15:15 ALT 25 IU/L (10-60) 05/20/21 15:15 Alkaline Phosphatase 93 IU/L (42-121) 05/20/21 15:15 Lactate Dehydrogenase 72 IU/L (91-225) L 05/21/21 07:47 Total Protein 8.5 g/dL (6.7-8.2) H 05/20/21 15:15 Albumin 3.2 g/dL (3.2-5.5) 05/20/21 15:15 Globulin 5.3 g/dL (2.1-4.2) H 05/20/21 15:15 Albumin/Globulin Ratio 0.6 (1.0-2.2) L 05/20/21 15:15 Lipase 28 U/L (22-51) 05/20/21 15:15 Vitamin B12 392 pg/mL (180-914) 05/21/21 07:47 TSH 1.77 uIU/mL (0.34-5.60) 05/20/21 15:15 Urine Color LT. YELLOW 05/20/21 16:08 Urine Clarity CLOUDY (CLEAR) 05/20/21 16:08 Urine pH 7.5 PH (5.0-7.5) 05/20/21 16:08 Ur Specific [place] 1.015 (1.002-1.030) 05/20/21 16:08 Urine Protein TRACE mg/dL (NEGATIVE) 05/20/21 16:08 Urine Glucose (UA) NEGATIVE mg/dL (NEGATIVE) 05/20/21 16:08 Urine Ketones NEGATIVE mg/dL (NEGATIVE) 05/20/21 16:08 Urine Occult Blood LARGE (NEGATIVE) H 05/20/21 16:08 Urine Nitrite POSITIVE (NEGATIVE) H 05/20/21 16:08 Urine Bilirubin NEGATIVE (NEGATIVE) 05/20/21 16:08 Urine Urobilinogen 0.2 (NORMAL) E.U./dL (NORMAL) 05/20/21 16:08 Ur Leukocyte Esterase LARGE (NEGATIVE) H 05/20/21 16:08 Urine RBC 6-10 /HPF (0-5) H 05/20/21 16:08 Urine WBC >25 /HPF (0-5) H 05/20/21 16:08 Ur Squamous Epith Cells FEW Squamous (<= Few) 05/20/21 16:08 Urine Bacteria Moderate /HPF (None Seen) H 05/20/21 16:08 Ur Microscopic Review INDICATED 05/20/21 16:08 Urine Culture Comments INDICATED 05/20/21 16:08 Nasal Adenovirus (PCR) NOT DETECTED 05/20/21 16:08 Nasal B. parapertussis DNA (PCR) NOT DETECTED 05/20/21 16:08 Nasal Coronavir 229E PCR NOT DETECTED 05/20/21 16:08 Nasal Coronavir HKU1 PCR NOT DETECTED 05/20/21 16:08 Nasal Coronavir NL63 PCR NOT DETECTED 05/20/21 16:08 Nasal Coronavir OC43 PCR NOT DETECTED 05/20/21 16:08 Nasal Enterovir/Rhinovir PCR NOT DETECTED 05/20/21 16:08 Nasal Influenza B PCR NOT DETECTED 05/20/21 16:08 Nasal Influenza A PCR NOT DETECTED 05/20/21 16:08 Nasal Parainfluen 1 PCR NOT DETECTED 05/20/21 16:08 Nasal Parainfluen 2 PCR NOT DETECTED 05/20/21 16:08 Nasal Parainfluen 3 PCR NOT DETECTED 05/20/21 16:08 Nasal Parainfluen 4 PCR NOT DETECTED 05/20/21 16:08 Nasal RSV (PCR) NOT DETECTED 05/20/21 16:08 Nasal B.pertussis DNA PCR NOT DETECTED 05/20/21 16:08 Nasal C.pneumoniae (PCR) NOT DETECTED 05/20/21 16:08 Sly Human Metapneumo PCR NOT DETECTED 05/20/21 16:08 Nasal M.pneumoniae (PCR) NOT DETECTED 05/20/21 16:08 Nasal SARS-CoV-2 (PCR) NOT DETECTED 05/20/21 16:08 Stl Occult Blood (IFOB) POSITIVE (NEGATIVE) A 05/21/21 12:20 Salicylates < 6.0 mg/dL 05/20/21 15:15 Urine Opiates Screen NEGATIVE (NEGATIVE) 05/20/21 16:08 Ur Oxycodone Screen NEGATIVE (NEGATIVE) 05/20/21 16:08 Urine Methadone Screen NEGATIVE (NEGATIVE) 05/20/21 16:08 Ur Propoxyphene Screen NEGATIVE (NEGATIVE) 05/20/21 16:08 Acetaminophen < 10 ug/mL (10-30) L 05/20/21 15:15 Ur Barbiturates Screen NEGATIVE (NEGATIVE) 05/20/21 16:08 Ur Tricyclics Screen NEGATIVE (NEGATIVE) 05/20/21 16:08 Ur Phencyclidine Scrn NEGATIVE (NEGATIVE) 05/20/21 16:08 Ur Amphetamine Screen NEGATIVE (NEGATIVE) 05/20/21 16:08 U Methamphetamines Scrn NEGATIVE (NEGATIVE) 05/20/21 16:08 U Benzodiazepines Scrn NEGATIVE (NEGATIVE) 05/20/21 16:08 Urine Cocaine Screen NEGATIVE (NEGATIVE) 05/20/21 16:08 U Cannabinoids Screen NEGATIVE (NEGATIVE) 05/20/21 16:08 Ethyl Alcohol < 5.0 mg/dL 05/20/21 15:15 - Procedures Procedures: Procedures EXCISION OF DUODENUM, ENDO, DIAGN (06/06/15) INSPECTION OF LOWER INTESTINAL TRACT, ENDO (05/04/18) ABX Reporting Has patient been on IV antibiotics over the past 48 hours?: Yes Current Medications - Current Medications Current Medications: Active Medications Acetaminophen (Acetaminophen 325 Mg Tablet) 650 mg PO Q4HR PRN PRN Reason: Pain 1 to 4 Last Admin: 05/21/21 13:20 Dose: 650 mg Documented by: Ascorbic Acid (Ascorbic Acid 500 Mg Tablet) 500 mg PO DAILY [facility] Last Admin: 05/23/21 08:40 Dose: 500 mg Documented by: Baclofen (Baclofen 10 Mg Tablet) 10 mg PO TID PRN PRN Reason: Spasms Last Admin: 05/23/21 08:40 Dose: 10 mg Documented by: Duloxetine HCl (Duloxetine 30 Mg Capsule) 60 mg PO DAILY [facility] Last Admin: 05/23/21 08:39 Dose: 60 mg Documented by: Fentanyl (Fentanyl 25 Mcg Patch) 1 patch TOP Q3D [facility] Last Admin: 05/22/21 09:05 Dose: 1 patch Documented by: Ferrous Sulfate (Ferrous Sulfate 325 Mg Tablet) 325 mg PO BIDWM [facility] Last Admin: 05/23/21 08:40 Dose: 325 mg Documented by: Cefepime HCl 1 gm/ Sodium (Chloride) 100 mls @ 200 mls/hr IV BID [facility] Last Admin: 05/23/21 08:39 Dose: 200 mls/hr Documented by: Potassium Chloride/Dextrose/Sod Cl (D5.45ns W/20 Meq Kcl) 1,000 mls @ 100 mls/hr IV .Q10H [facility] Stop: 05/23/21 18:59 Last Admin: 05/23/21 08:56 Dose: 100 mls/hr Documented by: Mineral Oil (Min Oil/Dimethicon/Coconut Oil 92 Gm Tube) 1 applic TOP PRN PRN PRN Reason: Skin Care Last Admin: 05/21/21 21:03 Dose: 1 applic Documented by: Ondansetron HCl (Ondansetron Odt 4 Mg Tablet) 4 mg TL Q6HR PRN PRN Reason: Nausea / Vomiting Ondansetron HCl (Ondansetron 4 Mg/2 Ml Vial) 4 mg IVP Q6HR PRN PRN Reason: Nausea / Vomiting Oxycodone HCl (Oxycodone 5 Mg Tablet) 5 mg PO Q4HR PRN PRN Reason: Pain 5 to 7 Last Admin: 05/20/21 22:41 Dose: 5 mg Documented by: Pantoprazole Sodium (Pantoprazole 40 Mg Tablet) 40 mg PO BID [facility] Last Admin: 05/23/21 08:39 Dose: 40 mg Documented by: Prochlorperazine Edisylate (Prochlorperazine 10 Mg/2 Ml Vial) 10 mg IVP Q6HR PRN PRN Reason: Nausea / Vomiting Saccharomyces Boulardii (Saccharomyces Boulardii 250 Mg Capsule) 250 mg PO BIDWM [facility] Last Admin: 05/23/21 08:39 Dose: 250 mg Documented by: Sodium Chloride (Sodium Chloride Flush 0.9% 10 Ml Syringe) 10 ml IVP PRN PRN PRN Reason: NEEDED PER PROVIDER ORDERS Last Admin: 05/20/21 21:58 Dose: 10 ml Documented by: Sodium Chloride (Sodium Chloride Flush 0.9% 10 Ml Syringe) 10 ml IVP 0100,0900,1700 [facility] Last Admin: 05/23/21 08:40 Dose: 10 ml Documented by: Throat Lozenges (Benzocaine/Menthol Lozenge) 1 lozenge MM Q2HR PRN PRN Reason: Throat pain Last Admin: 05/21/21 07:04 Dose: 1 lozenge Documented by: Acetaminophen [Tylenol Extra Strength] 500 - 1,000 mg PO Q6HR PRN 01/28/18 Aspirin [Adult Aspirin] 81 mg PO DAILY 01/28/18 Bisacodyl Supp [Dulcolax Supp] 1 supp CA DAILY PRN 01/28/18 Cholecalciferol (Vitamin D3) [Vitamin D3] 2,000 unit PO DAILY 01/28/18 Baclofen 10 mg PO TID 08/04/18 Calcium Carbonate [Tums (Calcium Carbonate 500mg)] 1,000 mg PO Q4HR PRN 11/09/18 DULoxetine [Cymbalta] 60 mg PO DAILY 11/09/18 Ferrous Gluconate [Iron] 240 mg PO DAILY 11/09/18 Lovastatin 10 mg PO QPM 11/09/18 Naloxone HCl 0.1 ml SLY PRN PRN 11/09/18 Sennosides [Senna Lax] 8.6 mg PO BID PRN 06/07/19 Albuterol Sulf [Ventolin Hfa Inhaler] 2 puffs INH Q4H PRN 08/23/20 Fluticasone/Salmeterol [Advair Hfa 115-21 Mcg Inhaler] 1 puffs IH BID 12/30/20 Oxybutynin Chloride [Ditropan Xl] 10 mg PO DAILY 12/30/20 Potassium Chloride [Micro-K] 40 meq PO DAILY 12/30/20 hydroCHLOROthiazide [Hydrochlorothiazide] 50 mg PO DAILY 12/30/20 fentaNYL [Fentanyl 25mcg patch] 1 each TD Q3D 12/31/20 D-Mannose [Azo D-Mannose] 500 mg PO TIDWM 01/26/21 Mineral Oil [Mineral Oil Enema] 1 ea RC DAILY PRN 05/21/21 polyethylene glycoL 3350 [Miralax] 17 gm PO BID PRN 05/21/21
[2021-05-23] MEDS: MEROPENEM 1 GM in SODIUM CHLORIDE 0.9% MINIBAG 100 ML IV SCH ×2 (15:58→20:23)
[2021-05-23] MEDS ORDERED: LACTATED RINGERS 1,000 ML IV ONE (16:40)
--- NOTE | 2021-05-23 17:19 | ANESTHESIA POST OP EVALUATION ---
Anesthesia Post Eval - Post Anesthesia Eval Vitals: Last Vital Signs Temp 36.7 C 05/23/21 17:04 Pulse 71 05/23/21 17:04 Resp 13 05/23/21 17:04 BP 139/63 H 05/23/21 17:04 Pulse Ox 96 05/23/21 17:04 CV Function Including HR & BP: Stable Pain Control: Satisfactory Nausea & Vomiting: Negative Mental Status: Baseline Respiratory Status: Airway Patent Hydration Status: Satisfactory Anesthesia Complications: None
[2021-05-23] MEDS: SODIUM CHLORIDE FLUSH 0.9% 10 ML SYRINGE IVP PRN ×2 (18:34→18:37)
[2021-05-23 20:57] LABS: HCT - HEMATOCRIT 28.1 % (37.0-47.0); HGB - HEMOGLOBIN 8.3 g/dL (12.0-16.0)
[2021-05-24 06:09] LABS: BASOPHILS # (AUTO) 0.1 10^3/uL (0.0-0.1); BASOPHILS % (AUTO) 0.8 %; EOSINOPHILS # (AUTO) 0.5 10^3/uL (0.0-0.7); EOSINOPHILS % (AUTO) 4.2 %; HCT - HEMATOCRIT 28.2 % (37.0-47.0); HGB - HEMOGLOBIN 8.2 g/dL (12.0-16.0); LYMPHOCYTES # (AUTO) 2.9 10^3/uL (1.5-3.5); MEAN CORPUSCULAR HEMOGLOBIN 23.8 pg (27.0-31.0); MEAN CORPUSCULAR HGB CONC 29.1 g/dL (32.0-36.0); MEAN CORPUSCULAR VOLUME 81.7 fL (81.0-99.0); MEAN PLATELET VOLUME 9.4 fL (7.9-10.8); MONOCYTES # (AUTO) 0.9 10^3/uL (0.0-1.0); NEUTROPHILS # (AUTO) 8.3 10^3/uL (1.5-6.6); NEUTROPHILS % (AUTO) 64.6 %; PLT - PLATELET COUNT 521 10^3/uL (130-450); RED BLOOD COUNT 3.45 10^6/uL (4.20-5.40); RED CELL DISTRIBUTION WIDTH 16.8 % (12.0-15.0); WHITE BLOOD COUNT 12.8 x10^3/uL (4.8-10.8)
[2021-05-24 06:20] LABS: CALCIUM 8.5 mg/dL (8.5-10.3); CREATININE 0.3 mg/dL (0.4-1.0); POTASSIUM 3.4 mmol/L (3.5-5.0)
[2021-05-24] MEDS ORDERED: POTASSIUM CHLORIDE 20 MEQ TABLET PO ONE (07:15)
[2021-05-24 07:25] VITALS: BP 113/65
--- NOTE | 2021-05-24 08:40 | ANESTHESIA PROCEDURE NOTE ---
Anesth Central Line Template - Central Line Central Line Preparation: Consent Obtained, Time out completed, Ultrasound used, Sterile prep and drape Central line location: Right Basilic Central line type: PICC Single Lumen Central line catheter tip site resides: Superior vena cava (SVC) Central line aftercare: Secured, Placement confirmed, No pneumothorax, No complications, Bundle checklist complete, Pt tolerated well (Trimmed to 39 cm. No cath out of skin)
[2021-05-24] MEDS: MEROPENEM 1 GM in SODIUM CHLORIDE 0.9% MINIBAG 100 ML IV SCH (09:15)
[2021-05-24] MEDS: BACLOFEN 10 MG TABLET PO PRN (09:15)
[2021-05-24] MEDS: ASCORBIC ACID 500 MG TABLET PO SCH (09:15)
[2021-05-24] MEDS: SACCHAROMYCES BOULARDII 250 MG CAPSULE PO SCH (09:16)
[2021-05-24] MEDS: PANTOPRAZOLE 40 MG TABLET PO SCH (09:16)
[2021-05-24] MEDS: DULoxetine 30 MG CAPSULE PO SCH (09:16)
[2021-05-24] MEDS: SODIUM CHLORIDE FLUSH 0.9% 10 ML SYRINGE IVP SCH (09:16)
[2021-05-24] MEDS: FERROUS SULFATE 325 MG TABLET PO SCH (09:16)
--- NOTE | 2021-05-24 09:16 | XRAY Report ---
PROCEDURE: Chest for Line Placement INDICATIONS: PICC Line insertion TECHNIQUE: One view of the chest was acquired. COMPARISON: May 20, 2021 FINDINGS: SUPPORT DEVICES: A right PICC line is seen with tip projecting at the cavoatrial region. Calcified gr anuloma versus artifact in the left lower lung zone. LUNGS/PLEURA: No focal consolidation, pleural effusion or space-occupying pneumothorax. MEDIASTINUM: The cardiomediastinal silhouette is within normal limits. BONES/SOFT TISSUES: No acute abnormality. IMPRESSION: 1.No acute cardiopulmonary abnormality. Reviewed by: Pablo Dudley MD on 05/24/2021 9:14 AM PDT Approved by: Pablo Dudley MD on 05/24/2021 9:14 AM PDT Station ID: [id number]
--- NOTE | 2021-05-24 10:53 | Discharge Plan ---
"Discharge Plan for SNF / [facility] - Discharge Plan And Transition Orders Problem Reviewed?: Yes Disposition: 03 SNF DC/Xfer Condition: Stable Allergies and Adverse Reactions: Allergies Allergy/AdvReac Type Severity Reaction Status Date / Time nystatin Allergy Unknown Verified 05/20/21 15:00 Penicillins Allergy Unknown Verified 05/20/21 15:00 Health Concerns: GI bleeding and anemia, UTI and AMS Plan of Treatment: Pt's home Aspirin is hold and protonix is prescribed for pt. Pt had EGD done at hospital, gastritis was found which is likely caused her GI bleeding. Her HGB is stable now. Pt may continue home iron supplement and recheck HGB in one week. pt was found to have two ESBL bacterial in her UA culture. Pt had PICC line now. pt may have 5 days of 1 gram Ertapenem IV daily in [facility]. pt may continue to have skin care and followup with wound care as out-pt. Care Goals: Stabilization and improvement of patient's medical conditions Assessment: Discussed care plan with patient. Answered patient's questions, patient understood. - SNF / [facility]IOR [facility] Transition Orders Admit to (Facility): [facility] Under the care of (Name): Vega Richardson Discharge Diagnosis: GI bleed, AMS, UTI, chronic urinary indwelling catheter, spastic paraplegia secondary to MS, chronic anemia, Decubital ulcer Medicare Certification Statement: I certify that Post Hospital long term care is medically necessary on a continuing basis for any of the conditions for which she/he is receiving care during hospitalization. Notify PCP of admission and forward orders to primary provider for signature. Weight on admission and: Daily Call PCP immediately if weight increases by: 2 kg Other Notification Orders: Call PCP immediately if patient develops dyspnea, chest pain/tightness or edema. House Bowel Program: Yes Additional Bowel Program Orders: If no BM after 2 days, nurse may give M.O.M. 30ml PO PRN and/or ducolax Supp 1 PA and/or JAIR 250mg P.O., and/or senna 1-2 tabs PO. On day 3 nurse may give repeat above order until residents constipation is resolved. Annual Influenza Vaccine (between Mar 20 and October 17): Yes Two-step PPD per [facility] [phone] or approved exception documents: Yes Treatments & Other Orders: Pt's home Aspirin is hold and protonix is prescribed for pt. Pt had EGD done at hospital, gastritis was found which is likely caused her GI bleeding. Her HGB is stable now. Pt may continue home iron supplement and recheck HGB in one week. pt was found to have two ESBL bacterial in her UA culture. Pt had PICC line now. pt may have 5 days of 1 gram Ertapenem IV daily in [facility]. pt may continue to have skin care and followup with wound care as out-pt. Medication Orders: PLEASE REFER TO THE DISCHARGE MEDICATION LIST. Insulin Orders?: No - Medications New Prescriptions: Saccharomyces Boulardii [Florastor] 250 mg PO BIDWM #10 cap Ertapenem [INVanz] 1 gm IV Q24H 5 Days #5 gm Pantoprazole [Protonix] 40 mg PO BID #60 tablet - Diet Type: Geriatric Texture: Regular Liquids: Thin May have monthly special meal: Yes - Therapies | Activity Rehabilitation Potential: Maximize functional status Activity: Activity as Tolerated"
--- NOTE | 2021-05-24 11:38 | DISCHARGE SUMMARY ---
Discharge Summary Admit Date: 05/20/21 Discharge Date: 05/24/21 Discharging Provider: Umesh Chadwick Primary Care Provider: Vega Richardson Condition at Discharge: Stable Discharge Disposition: SNF DC/Xfer Discharge Facility Name: [facility] - DIAGNOSES Discharge Diagnoses with Status of Each Condition: (1) Bacteremia likely contamination. Repeat blood culture is negative (2)GI bleeding HGB is stable. pt had EGD done by surgeon which reveal gastritis. pt's home aspirin is holding now and pt is prescribed Protonix. resume her home iron supplement. pt has iron deficiency (3) Altered mental status resolved. it is likely caused by her acute infection UTI. (4) Urinary tract infection UA culture reveal two ESBL E. coli and KLEB pneumoniae. pt is prescribed Ertapenem and pt has PICC. (5) Spastic paraplegia secondary to multiple sclerosis stable, continue home baclofen pump (6) Chronic anemia HGB is stable, continue home iron supplement, recheck HGB in one week (7)sacral pressure ulcer chronic Decubitus pressure ulcers. continue skin care and wound care as out-pt (8)chronic indwelling urinary catheter continue catheter care in [facility] - HPI History of Present Illness: refer from Dr. Meyer's HPI on 05/20/21 71-year-old female who has been living in a long term facility since approximately 02/2018 due to overall weakness and inability to take care of herself as a result of multiple sclerosis and it's spastic paraplegia. For years her and family pieced together care until his in 2015. It became apparent that family could no longer piece together the care, and she was transferred to a long term facility 02/2018. Her sister moved to [place] in 2019. Her son has moved off [place]. Her multiple sclerosis is late stage, with neurogenic bladder, chronic indwelling Good, chronic pain with spasticity for which she is on a baclofen pump. Occasionally incontinent of bowel. She has had a stage III decubitus ulcer due to contractions on her right mitchell, ischium, as well as sacrum in the past. She has chronic constipation induced by opioids. She is followed at the wound clinic here at the hospital. She has frequent, frequent urinary tract infections. Urinary pathogens in the past have included Klebsiella, Citrobacter, Pseudomonas, MRSA, ESBL E. coli, and Proteus. Culture in September of this year was Proteus and ESBL. December of this year was Proteus and ESBL E. coli. January and March of this year were both Proteus without ESBL E. coli. Her last admission was in December of this year. She was brought in by ambulance to the emergency room because she was unresponsive at her long term facility. She has been getting sleepier and sleepier over the last 2 days with increasing confusion. When EMS arrived there she was responsive. The patient described feeling increasingly weak over her chronic weakness. She usually requires a [place] lift to get her out of bed. Has been wheelchair bound or bed bound since 2013 or so. She is bathed twice a week. Cannot emember much of the last few days. She just remembers having flashes of severe uncomfortableness. When I asked her to try and quantify what made her uncomfortable she says that she remembers having all over muscle pain, occasional shakes, spasticity was worse. She had generalized abdominal aching with only one episode of emesis. She was having occasional diarrhea. But she says that she feels that she was just "in and out" without ability to quantify how long she has been feeling this ill. Right now she knows that she is in a healthcare facility but cannot name the fact that she lives at [facility] or that she is at [facility]. Temperature was 36.5. Heart rate 74. Blood pressure 123/73. Respirations 16. 98% on 2 L there is no current physical exam documented in the ER note. I am the hospitalist coming on for disposal man. Her urine tox urine is negative. White cell count is 16.3. Hemoglobin 9.4. Platelets 602. CMP is essentially normal with a random glucose of 127. Total protein 8.5. Urinalysis has pyuria, hematuria, leukocyte Estrace, nitrites, a few squamous cells. - HOSPITAL COURSE Hospital Course: Patient was admitted for confuse and unresponsive at her long term [facility]. Patient was admitted multiple times with similar clinical presentation after she had UTI. Urinalysis review UTI at this time. Patient had chronic indwelling Urinary catheter. Patient's catheter was changed in the hospital. She was treated with intravenous antibiotics. After treatment, in the next day, patient's mental status has significantly improved, close to her baseline. Patient was also found to have significant anemia and hemoglobin was dropped. occult stool test is positive. Patient had EGD done in the hospital, EGD found Patient had gastritis which is likely cause of patient's GI bleeding. Patient was treated with Protonix, Baby aspirin was on hold. After treated, patient hemo globin became stable. Patient was also found to have iron deficiency, resume patient home iron supplement. Patient was discharged to [facility], patient was long residence in the [facility]. - ALLERGIES Allergies/Adverse Reactions: Allergies Allergy/AdvReac Type Severity Reaction Status Date / Time nystatin Allergy Unknown Verified 05/20/21 15:00 Penicillins Allergy Unknown Verified 05/20/21 15:00 - MEDICATIONS Home Medications: Ambulatory Orders Medication Instructions Recorded Confirmed Acetaminophen [Tylenol Extra 500 - 1,000 mg PO Q6HR PRN 01/28/18 05/21/21 Strength] Bisacodyl Supp [Dulcolax Supp] 1 supp [place] DAILY PRN 01/28/18 05/21/21 Cholecalciferol (Vitamin D3) 2,000 unit PO DAILY 01/28/18 05/20/21 [Vitamin D3] Baclofen 10 mg PO TID 08/04/18 05/20/21 Calcium Carbonate [Tums (Calcium 1,000 mg PO Q4HR PRN 11/09/18 05/21/21 Carbonate 500mg)] DULoxetine [Cymbalta] 60 mg PO DAILY 11/09/18 05/20/21 Ferrous Gluconate [Iron] 240 mg PO DAILY 11/09/18 05/20/21 Lovastatin 10 mg PO QPM 11/09/18 05/20/21 Naloxone HCl 0.1 ml SLY PRN PRN 11/09/18 05/21/21 Sennosides [Senna Lax] 8.6 mg PO BID PRN 06/07/19 05/21/21 Albuterol Sulf [Ventolin Hfa 2 puffs INH Q4H PRN 08/23/20 05/21/21 Inhaler] Fluticasone/Salmeterol [Advair Hfa 1 puffs IH BID 12/30/20 05/20/21 115-21 Mcg Inhaler] Oxybutynin Chloride [Ditropan Xl] 10 mg PO DAILY 12/30/20 05/21/21 Potassium Chloride [Micro-K] 40 meq PO DAILY 12/30/20 05/20/21 hydroCHLOROthiazide 50 mg PO DAILY 12/30/20 05/20/21 [Hydrochlorothiazide] fentaNYL [Fentanyl 25mcg patch] 1 each TD Q3D 12/31/20 05/20/21 D-Mannose [Azo D-Mannose] 500 mg PO TIDWM 01/26/21 05/21/21 Mineral Oil [Mineral Oil Enema] 1 ea RC DAILY PRN 05/21/21 05/21/21 polyethylene glycoL 3350 [Miralax] 17 gm PO BID PRN 05/21/21 05/21/21 Ertapenem [INVanz] 1 gm IV Q24H 5 Days #5 gm 05/24/21 Pantoprazole [Protonix] 40 mg PO BID #60 tablet 05/24/21 Saccharomyces Boulardii [Florastor] 250 mg PO BIDWM #10 cap 05/24/21 - PHYSICAL EXAM AT DISCHARGE General Appearance: positive: No acute distress, Alert. negative: Lethargic Eyes Bilateral: positive: Normal inspection, PERRL, No lid inflammation ENT: positive: ENT inspection nml, No signs of dehydration. negative: Purulent nasal drainage Neck: positive: Nml inspection, Trachea midline. negative: Thyromegaly, Tracheal deviation Respiratory: positive: Chest non-tender, No respiratory distress, Breath sounds nml. negative: Wheezes Cardiovascular: positive: Regular rate & rhythm, No murmur. negative: Tachycardia, Bradycardia, Systolic murmur, Diastolic murmur Peripheral Pulses: positive: 2+ Abdomen: positive: Non-tender, Nml bowel sounds, No distention. negative: Tenderness Back: positive: Nml inspection Skin: positive: Color nml, Warm, Other (Decubitus pressure ulcers). negative: Cyanosis Extremities: positive: Non-tender, Nml appearance. negative: Calf tenderness Neurologic/Psychiatric: positive: Oriented x3, Sensation nml. negative: Weakness, Sensory loss, Facial droop, Slurred/abnml speech, Depressed moo d/affect - LABS Result Diagrams: 05/24/21 05:20 05/24/21 05:20 - FOLLOW UP Follow Up: Pt's home Aspirin is hold and protonix is prescribed for pt. Pt had EGD done at hospital, gastritis was found which is likely caused her GI bleeding. Her HGB is stable now. Pt may continue home iron supplement and recheck HGB in one week. pt was found to have two ESBL bacterial in her UA culture. Pt had PICC line now. pt may have 5 days of 1 gram Ertapenem IV daily in [facility]. pt may continue to have skin care and followup with wound care as out-pt. - TIME SPENT Time Spent in Discharge (Minutes): 30
[2021-05-24 12:02] LABS: B. PARAPERTUSSIS- RESP PCR PAN NOT DETECTED; B. PERTUSSIS- RESP PCR PANEL NOT DETECTED; C. PNEUMONIAE- RESP PCR PANEL NOT DETECTED; CORONAVIRUS 229E-RESP PCR NOT DETECTED; CORONAVIRUS HKU1-RESP PCR NOT DETECTED; CORONAVIRUS NL63-RESP PCR NOT DETECTED; CORONAVIRUS OC43-RESP PCR NOT DETECTED; HUMAN METAPNEUMOVIRUS NOT DETECTED; INFLUENZA A- RESP PCR PANEL NOT DETECTED; INFLUENZA B - RESP PCR PANEL NOT DETECTED; M. PNEUMONIAE- RESP PCR PANEL NOT DETECTED; PARAINFLUENZA VIRUS 1 NOT DETECTED; PARAINFLUENZA VIRUS 2 NOT DETECTED; PARAINFLUENZA VIRUS 3 NOT DETECTED; PARAINFLUENZA VIRUS 4 NOT DETECTED; RHINOVIRUS/ENTEROVIRUS NOT DETECTED; RSV- RESP PCR PANEL NOT DETECTED; SARS-CoV-2 -RESP PCR PANEL NOT DETECTED
== END 2021-05-24 15:00 | DRG 698 ==
LOC: EDUNIT# → ED 14:51 → MS2 19:50
PROVIDERS: ADMIT Specialist; ATTEND Nurse Practitioner Gerontology
PROC: 0DB68ZX Excision of Stomach, Via Natural or Artificial Opening Endoscopic, Diagnostic (ICD-10-PCS; 2021-05-23)
PROC: 0DB58ZX Excision of Esophagus, Via Natural or Artificial Opening Endoscopic, Diagnostic (ICD-10-PCS; 2021-05-23)
PROC: 0DB48ZX Excision of Esophagogastric Junction, Via Natural or Artificial Opening Endoscopic, Diagnostic (ICD-10-PCS; 2021-05-23)
PROC: 0DB98ZX Excision of Duodenum, Via Natural or Artificial Opening Endoscopic, Diagnostic (ICD-10-PCS; principal; 2021-05-23 16:30)
PROC: 02HV33Z Insertion of Infusion Device into Superior Vena Cava, Percutaneous Approach (ICD-10-PCS; 2021-05-24)
DX: T83.511A Infection and inflammatory reaction due to indwelling urethral catheter, initial encounter (principal); N30.20 Other chronic cystitis without hematuria; Y73.1 Therapeutic (nonsurgical) and rehabilitative gastroenterology and urology devices associated with adverse incidents; K29.61 Other gastritis with bleeding; G93.41 Metabolic encephalopathy; G35 Multiple sclerosis; G63 Polyneuropathy in diseases classified elsewhere; N31.9 Neuromuscular dysfunction of bladder, unspecified; D50.0 Iron deficiency anemia secondary to blood loss (chronic); Z20.822 Contact with and (suspected) exposure to COVID-19; L89.151 Pressure ulcer of sacral region, stage 1; B96.20 Unspecified Escherichia coli [E. coli] as the cause of diseases classified elsewhere; B96.1 Klebsiella pneumoniae [K. pneumoniae] as the cause of diseases classified elsewhere; N39.0 Urinary tract infection, site not specified; K22.70 Barrett's esophagus without dysplasia; K31.7 Polyp of stomach and duodenum; K44.9 Diaphragmatic hernia without obstruction or gangrene; F32.9 Major depressive disorder, single episode, unspecified; F41.9 Anxiety disorder, unspecified; N39.498 Other specified urinary incontinence; K59.03 Drug induced constipation; T40.605A Adverse effect of unspecified narcotics, initial encounter; G89.29 Other chronic pain; E78.00 Pure hypercholesterolemia, unspecified; H53.8 Other visual disturbances; H53.2 Diplopia; H91.90 Unspecified hearing loss, unspecified ear; Z74.01 Bed confinement status; Z79.82 Long term (current) use of aspirin; Z79.51 Long term (current) use of inhaled steroids; Z79.891 Long term (current) use of opiate analgesic; Z79.899 Other long term (current) drug therapy; Z87.891 Personal history of nicotine dependence; Z86.73 Personal history of transient ischemic attack (TIA), and cerebral infarction without residual deficits
CPT/HCPCS: 36415; 70450; 71045; 80048; 80053; 80306; 80307; 81001; 82274; 82607; 82728; 83540; 83605; 83615; 83690; 84443; 84466; 85014; 85018; 85025; 85045; 87040; 87077; 87086; 87150; 87181; 87631; 93005; 96361; 96374; 97165; 97535; 99285; A6250; A9270; G0480; J1650; J2185; J7120; 0202U; 80320; 80329; 81003

== ENCOUNTER 2021-05-24 15:07 | Outpatient (CLI) | payer MEDICAID | END 2021-05-24 15:08 | LOC: EMS 15:07 | PROVIDERS: ATTEND Nurse Practitioner Gerontology | DX: Z74.01 Bed confinement status (principal); N39.0 Urinary tract infection, site not specified; R41.82 Altered mental status, unspecified; G93.41 Metabolic encephalopathy; G35 Multiple sclerosis; R78.81 Bacteremia | CPT/HCPCS: A0425; A0428 ==

== ENCOUNTER 2021-05-27 08:00 | Outpatient (CLI) | payer MEDICARE, MEDICAID ==
[2021-05-27 18:06] LABS: BASOPHILS # (AUTO) 0.1 10^3/uL (0.0-0.1); BASOPHILS % (AUTO) 0.9 %; EOSINOPHILS # (AUTO) 0.4 10^3/uL (0.0-0.7); EOSINOPHILS % (AUTO) 3.6 %; HCT - HEMATOCRIT 31.7 % (37.0-47.0); HGB - HEMOGLOBIN 9.5 g/dL (12.0-16.0); LYMPHOCYTES # (AUTO) 2.5 10^3/uL (1.5-3.5); LYMPHOCYTES % (AUTO) 22.6 %; MEAN CORPUSCULAR HEMOGLOBIN 23.9 pg (27.0-31.0); MEAN CORPUSCULAR VOLUME 79.6 fL (81.0-99.0); MEAN PLATELET VOLUME 10.1 fL (7.9-10.8); MONOCYTES # (AUTO) 0.6 10^3/uL (0.0-1.0); MONOCYTES % (AUTO) 5.4 %; NEUTROPHILS # (AUTO) 7.4 10^3/uL (1.5-6.6); NEUTROPHILS % (AUTO) 67.2 %; PLT - PLATELET COUNT 579 10^3/uL (130-450); RED BLOOD COUNT 3.98 10^6/uL (4.20-5.40); RED CELL DISTRIBUTION WIDTH 16.9 % (12.0-15.0)
== END 2021-05-27 23:59 | disposition home or self-care (01) ==
LOC: LAB 08:00
DX: D64.9 Anemia, unspecified (principal); T83.511D Infection and inflammatory reaction due to indwelling urethral catheter, subsequent encounter
CPT/HCPCS: 36415; 85025

== ENCOUNTER 2021-05-31 07:00 | Outpatient (CLI) | payer MEDICARE, MEDICAID ==
[2021-05-31 17:35] LABS: BASOPHILS # (AUTO) 0.1 10^3/uL (0.0-0.1); BASOPHILS % (AUTO) 0.7 %; EOSINOPHILS # (AUTO) 0.4 10^3/uL (0.0-0.7); EOSINOPHILS % (AUTO) 2.8 %; HCT - HEMATOCRIT 30.5 % (37.0-47.0); HGB - HEMOGLOBIN 9.2 g/dL (12.0-16.0); LYMPHOCYTES # (AUTO) 2.8 10^3/uL (1.5-3.5); LYMPHOCYTES % (AUTO) 20.7 %; MEAN CORPUSCULAR HEMOGLOBIN 23.2 pg (27.0-31.0); MEAN CORPUSCULAR HGB CONC 30.2 g/dL (32.0-36.0); MEAN PLATELET VOLUME 10.3 fL (7.9-10.8); MONOCYTES # (AUTO) 1.1 10^3/uL (0.0-1.0); MONOCYTES % (AUTO) 8.1 %; NEUTROPHILS % (AUTO) 67.3 %; PLT - PLATELET COUNT 450 10^3/uL (130-450); RED BLOOD COUNT 3.96 10^6/uL (4.20-5.40); RED CELL DISTRIBUTION WIDTH 16.6 % (12.0-15.0); WHITE BLOOD COUNT 13.4 x10^3/uL (4.8-10.8)
== END 2021-05-31 23:59 | disposition home or self-care (01) ==
LOC: LAB 07:00
DX: D64.9 Anemia, unspecified (principal); R31.9 Hematuria, unspecified; R30.0 Dysuria; R53.83 Other fatigue; D72.829 Elevated white blood cell count, unspecified
CPT/HCPCS: 36415; 85025

== ENCOUNTER 2021-07-22 08:00 | Outpatient (CLI) | payer MEDICARE, MEDICAID ==
[2021-07-22 21:23] LABS: BILIRUBIN,URINE NEGATIVE (NEGATIVE); GLUCOSE, URINE (UA) NEGATIVE (NEGATIVE); KETONES,URINE (UA) NEGATIVE (NEGATIVE); LEUKOCYTE ESTERASE, URINE SMALL (NEGATIVE); NITRITE,URINE NEGATIVE (NEGATIVE); OCCULT BLOOD,URINE MODERATE (NEGATIVE); PH,URINE 7.5 PH (5.0-7.5); PROTEIN,URINE TRACE mg/dL (NEGATIVE); UROBILINOGEN,URINE 0.2 (NORMAL) E.U./dL (NORMAL)
[2021-07-22 22:00] LABS: CLARITY,URINE CLEAR (CLEAR)
[2021-07-22 22:01] LABS: BACTERIA,URINE Few /HPF (None Seen); SQUAMOUS EPITHELIAL CELL,UR FEW Squamous (<= Few)
== END 2021-07-22 23:59 ==
LOC: LAB.R 08:00
DX: N39.0 Urinary tract infection, site not specified (principal)
CPT/HCPCS: 81001; 87077; 87086; 87181

== ENCOUNTER 2021-09-26 16:13 | Outpatient (CLI) | payer MEDICARE, MEDICAID | END 2021-09-26 16:14 | disposition critical access hospital (66) | LOC: EMS 16:13 | DX: R10.84 Generalized abdominal pain (principal); R19.37 Generalized abdominal rigidity; R41.82 Altered mental status, unspecified | CPT/HCPCS: A0425; A0429 ==

== ENCOUNTER 2021-09-26 16:20 | Emergency (ER) | payer MEDICARE, MEDICAID ==
--- NOTE | 2021-09-26 16:40 | ED Physician Documentation ---
History of Present Illness - Stated complaint Stated Complaint: ABD PX - History obtained from History obtained from: Patient, EMS - Additonal information Additional information: The patient comes to the emergency department via EMS for chief complaint of abdominal distention. The patient has a history of multiple sclerosis and chronic indwelling Good catheter and EMS reports that staff told him that sometimes the catheter gets blocked. They are not really sure if the catheter is been blocked or not. The patient states that she has been having bowel movements about the same as usual. She has a history of chronic constipation but does have regular bowel movements. She states she has been slightly nauseated but has not been vomiting. Vague generalized abdominal discomfort but no focal pain. No blood in her stools. The patient denies any fevers or chills. No other complaints at this time. Review of Systems Ten Systems: 10 systems reviewed and negative Constitutional: reports: Reviewed and negative Eyes: reports: Reviewed and negative Ears: reports: Reviewed and negative Nose: reports: Reviewed and negative Throat: reports: Reviewed and negative Cardiac: reports: Reviewed and negative Respiratory: reports: Reviewed and negative GI: reports: Abdominal Swelling : reports: Reviewed and negative Skin: reports: Reviewed and negative Musculoskeletal: reports: Reviewed and negative Neurologic: reports: Reviewed and negative Psychiatric: reports: Reviewed and negative Endocrine: reports: Reviewed and negative Immunocompromised: reports: Reviewed and negative PD PAST MEDICAL HISTORY - Past Medical History Cardiovascular: High cholesterol Respiratory: None Neuro: CVA, Peripheral neuropathy, Multiple sclerosis Endocrine/Autoimmune: Other GI: Hemorrhoids, Other (chronic constipation) OBEDIENCE TRAINER: Fibroids, Other () : Incontinence, Chronic bladder infection HEENT: Chronic vision loss Psych: Depression, Anxiety Musculoskeletal: Paraplegia, Other Derm: Other (pressure ulcer of mitchell and sacrum in the past) - Past Surgical History Past Surgical History: Yes General: Colonoscopy, EGD Ortho: Other - Present Medications Home Medications: Ambulatory Orders Medication Instructions Recorded Confirmed Acetaminophen [Tylenol Extra 500 - 1,000 mg PO Q6HR PRN 01/28/18 09/26/21 Strength] Bisacodyl Supp [Dulcolax Supp] 1 supp [place] DAILY PRN 01/28/18 09/26/21 Cholecalciferol (Vitamin D3) 2,000 unit PO DAILY 01/28/18 09/26/21 [Vitamin D3] Baclofen 10 mg PO TID 08/04/18 09/26/21 Calcium Carbonate [Tums (Calcium 1,000 mg PO Q4HR PRN 11/09/18 09/26/21 Carbonate 500mg)] DULoxetine [Cymbalta] 60 mg PO DAILY 11/09/18 09/26/21 Ferrous Gluconate [Iron] 240 mg PO DAILY 11/09/18 09/26/21 Lovastatin 10 mg PO QPM 11/09/18 09/26/21 Naloxone HCl 0.1 ml SLY PRN PRN 11/09/18 09/26/21 Sennosides [Senna Lax] 8.6 mg PO BID PRN 06/07/19 09/26/21 Albuterol Sulf [Ventolin Hfa 2 puffs INH Q4H PRN 08/23/20 09/26/21 Inhaler] Fluticasone/Salmeterol [Advair Hfa 1 puffs IH BID 12/30/20 09/26/21 115-21 Mcg Inhaler] Oxybutynin Chloride [Ditropan Xl] 10 mg PO DAILY 12/30/20 09/26/21 Potassium Chloride [Micro-K] 40 meq PO DAILY 12/30/20 09/26/21 hydroCHLOROthiazide 50 mg PO DAILY 12/30/20 09/26/21 [Hydrochlorothiazide] fentaNYL [Fentanyl 25mcg patch] 1 each TD Q3D 12/31/20 09/26/21 D-Mannose [Azo D-Mannose] 500 mg PO TIDWM 01/26/21 09/26/21 Mineral Oil [Mineral Oil Enema] 1 ea RC DAILY PRN 05/21/21 09/26/21 polyethylene glycoL 3350 [Miralax] 17 gm PO BID PRN 05/21/21 09/26/21 Ertapenem [INVanz] 1 gm IV Q24H 5 Days #5 gm 05/24/21 09/26/21 Pantoprazole [Protonix] 40 mg PO BID #60 tablet 05/24/21 09/26/21 Saccharomyces Boulardii [Florastor] 250 mg PO BIDWM #10 cap 05/24/21 09/26/21 - Allergies Allergies/Adverse Reactions: Allergies Allergy/AdvReac Type Severity Reaction Status Date / Time nystatin Allergy Unknown Verified 09/26/21 16:25 Penicillins Allergy Unknown Verified 09/26/21 16:25 - Social History Does the pt smoke?: No Smoking Status: Former smoker Does the pt drink ETOH?: No Does the pt have substance abuse?: No - Immunizations Immunizations are current?: Yes - POLST Patient has POLST: Yes POLST Status: DNR (Advanced care planning. Patient does have D POA which is her son Adan, has a POLST in place with the OSIEL and selective treatments. She is quite thoughtful and pragmatic and wane benefits and burdens of medical interventions and appointments. We will continue to anticipate decline in the future,) PD ED PE NORMAL - Vitals Vital signs reviewed: Yes - General General: Alert and oriented X 3, No acute distress, Well developed/nourished - HEENT HEENT: Atraumatic, PERRL, EOMI, Moist mucous membranes - Neck Neck: Supple, no meningeal sign - Cardiac Cardiac: RRR, No murmur, Strong equal pulses - Respiratory Respiratory: No respiratory distress, Clear bilaterally - Abdomen Abdomen: Soft, Other (Marked distention, moderate tenderness without rebound or guarding across lower abdomen.) - Derm Derm: Normal color, Warm and dry, No rash - Extremities Extremities: No deformity, No edema - Neuro Neuro: Other (Grossly intact. Patient answers questions appropriately.) - Psych Psych: Normal mood, Normal affect Results - Vitals Vitals: Oxygen O2 Source Room air - Labs Labs: Microbiology 09/26/21 17:04 Urine Culture - Final Urine,Clean Catch Escherichia Coli Laboratory Tests 09/26/21 09/26/21 09/26/21 16:51 16:51 17:04 WBC 12.3 H RBC 4.55 Hgb 9.9 L Hct 34.1 L MCV 74.9 L MCH 21.8 L MCHC 29.0 L RDW 18.6 H Plt Count 558 H MPV 9.1 Neut # (Auto) 8.5 H Lymph # (Auto) 2.5 Peach # (Auto) 0.7 Eos # (Auto) 0.5 Baso # (Auto) 0.1 Absolute Nucleated RBC 0.00 Nucleated RBC % 0.0 Sodium 135 Potassium 4.1 Chloride 93 L Carbon Dioxide 31 Anion Gap 11.0 BUN 18 Creatinine 0.5 Estimated GFR (MDRD) 121 Glucose 107 H Calcium 8.8 Total Bilirubin 0.5 AST 292 H ALT 424 H Alkaline Phosphatase 228 H Total Protein 8.4 H Albumin 3.1 L Globulin 5.3 H Albumin/Globulin Ratio 0.6 L Lipase 28 Urine Color YELLOW Urine Clarity HAZY Urine pH 6.5 Ur Specific [place] 1.025 Urine Protein NEGATIVE Urine Glucose (UA) NEGATIVE Urine Ketones NEGATIVE Urine Occult Blood TRACE-INTA Urine Nitrite POSITIVE H Urine Bilirubin NEGATIVE Urine Urobilinogen 0.2 (NORMAL) Ur Leukocyte Esterase SMALL H Urine RBC 6-10 H Urine WBC >25 H Ur Squamous Epith Cells RARE Squamous Urine Bacteria Many H Ur Microscopic Review INDICATED Urine Culture Comments INDICATED - Rads (name of study) CT abdomen and pelvis Radiology: Final report received, EMP read indepedently, See rad report PD MEDICAL DECISION MAKING - ED course Complexity details: reviewed results, re-evaluated patient, considered differential, d/w patient ED course: The patient was worked up with labs and ultimately, CT scan of the abdomen and pelvis, which was unremarkable , except for fecal impaction. Disimpaction was performed in the emergency department after which patient was able to do some stooling on her own. Enema was also performed. We have discussed home management and symptoms and the usual indications for return. Departure - Departure Disposition: 01 Home, Self Care Clinical Impression: Fecal impaction in rectum Constipation Qualifiers: Constipation type: unspecified constipation type Qualified Code(s): K59.00 - Constipation, unspecified Condition: Stable Instructions: ED Impaction Fecal Treated Comments: Your CT scan shows impaction of feces in your rectum. For this, we have performed a disimpaction and enema today. It is important that you continue to have the enemas and eat a high-fiber diet, especially since you are on chronic narcotics and are chronically immobile. This will help prevent this from happening. Discharge Date/Time: 09/26/21 20:54
[2021-09-26] MEDS ORDERED: SODIUM CHLORIDE 0.9% 1,000 ML IV STA (16:41)
[2021-09-26 16:55] LABS: BASOPHILS # (AUTO) 0.1 10^3/uL (0.0-0.1); BASOPHILS % (AUTO) 0.7 %; EOSINOPHILS # (AUTO) 0.5 10^3/uL (0.0-0.7); EOSINOPHILS % (AUTO) 3.9 %; HCT - HEMATOCRIT 34.1 % (37.0-47.0); HGB - HEMOGLOBIN 9.9 g/dL (12.0-16.0); LYMPHOCYTES # (AUTO) 2.5 10^3/uL (1.5-3.5); LYMPHOCYTES % (AUTO) 20.4 %; MEAN CORPUSCULAR HEMOGLOBIN 21.8 pg (27.0-31.0); MEAN CORPUSCULAR VOLUME 74.9 fL (81.0-99.0); MEAN PLATELET VOLUME 9.1 fL (7.9-10.8); MONOCYTES # (AUTO) 0.7 10^3/uL (0.0-1.0); MONOCYTES % (AUTO) 5.6 %; NEUTROPHILS # (AUTO) 8.5 10^3/uL (1.5-6.6); NEUTROPHILS % (AUTO) 69.1 %; PLT - PLATELET COUNT 558 10^3/uL (130-450); RED BLOOD COUNT 4.55 10^6/uL (4.20-5.40); RED CELL DISTRIBUTION WIDTH 18.6 % (12.0-15.0); WHITE BLOOD COUNT 12.3 x10^3/uL (4.8-10.8)
[2021-09-26 17:16] LABS: ALBUMIN 3.1 g/dL (3.2-5.5); ALBUMIN/GLOBULIN RATIO 0.6 (1.0-2.2); BILIRUBIN,TOTAL 0.5 mg/dL (0.2-1.0); CALCIUM 8.8 mg/dL (8.5-10.3); CREATININE 0.5 mg/dL (0.4-1.0); POTASSIUM 4.1 mmol/L (3.5-5.0); TOTAL PROTEIN 8.4 g/dL (6.7-8.2)
[2021-09-26 17:24] LABS: BILIRUBIN,URINE NEGATIVE (NEGATIVE); GLUCOSE, URINE (UA) NEGATIVE (NEGATIVE); KETONES,URINE (UA) NEGATIVE (NEGATIVE); LEUKOCYTE ESTERASE, URINE SMALL (NEGATIVE); NITRITE,URINE POSITIVE (NEGATIVE); OCCULT BLOOD,URINE TRACE-INTA (NEGATIVE); PH,URINE 6.5 PH (5.0-7.5); PROTEIN,URINE NEGATIVE (NEGATIVE); UROBILINOGEN,URINE 0.2 (NORMAL) E.U./dL (NORMAL)
[2021-09-26 17:27] LABS: CLARITY,URINE HAZY (CLEAR)
[2021-09-26 17:35] LABS: BACTERIA,URINE Many /HPF (None Seen); SQUAMOUS EPITHELIAL CELL,UR RARE Squamous (<= Few); WBC,URINE >25 /HPF (0-5)
[2021-09-26] MEDS ORDERED: IOVERSOL 320 100 ML VIAL IVP ONE ×2 (17:36→18:09)
[2021-09-26 18:39] VITALS: BP 120/68
--- NOTE | 2021-09-26 18:40 | CT Report ---
PROCEDURE: Abdomen/Pelvis W INDICATIONS: abdominal pain/distention, elevated LFTs CONTRAST: IV CONTRAST: Optiray 320 ml: 100 PO CONTRAST: *NO PO CONTRAST TECHNIQUE: After the administration of intravenous contrast, 5 mm thick sections acquired from the diaphragms to the symphysis. 5 mm thick coronal and sagittal reformats were acquired. For radiation dose reducti on, the following was used: automated exposure control, adjustment of mA and/or kV according to devon ent size. COMPARISON: CT abdomen and pelvis 02/22/2021. FINDINGS: Image quality: Excellent. ABDOMEN: Lung bases: Lung bases are clear. Heart size is normal. Solid organs: Liver and spleen are normal in size and enhancement. Gallbladder is not distended. No calcified gallstones. Biliary system is non dilated. Pancreas enhances normally. Left adrenal nodu le measuring 1.8 cm, (01/03), unchanged. Kidneys demonstrate normal size and enhancement, without hydr onephrosis. Right kidney stone measuring 0.3 cm. Peritoneum and bowel: Stomach is not distended. No small bowel obstruction. There is a large amount o f fecal residue in the rectum with rectal wall thickening and presacral edema. Findings suspicious fo r fecal impaction. There is prominent stool elsewhere in the colon. The appendix is not dilated. No f ree fluid or air. Nodes and vessels: No retroperitoneal or mesenteric adenopathy by size criteria. Aorta and inferior vena cava are normal in size. Mild to moderate plaque. Miscellaneous: No ventral hernias. PELVIS: Genitourinary: Bladder is decompressed with Good catheter. Anteverted uterus with multiple calcifie d fibroids.. Miscellaneous: No inguinal hernias or adenopathy. Bones: No suspicious bony lesions. Scoliosis. Thoracic thecal lead. Left lower quadrant generator d evice. No vertebral body compression fractures. IMPRESSION: 1. Large volume of stool in the rectum with presacral edema and rectal wall thickening. This could be due to fecal impaction and/or stercoral colitis. 2. Large volume of stool in the colon suggesting constipation. 3. No small bowel obstruction. No free fluid. No pneumoperitoneum. 4. Left adrenal nodule measuring 1.8 cm is unchanged since at least 2018. 5. Small nonobstructing right kidney stone. Reviewed by: Juan Cabral MD on 09/26/2021 6:38 PM PST Approved by: Juan Cabral MD on 09/26/2021 6:38 PM PST Station ID: [id number]
== END 2021-09-26 20:54 | disposition home or self-care (01) ==
LOC: EDUNIT# → ED 16:20
DX: K56.41 Fecal impaction (principal); Z87.891 Personal history of nicotine dependence; Z96.0 Presence of urogenital implants; Z66 Do not resuscitate
CPT/HCPCS: 36415; 74177; 80053; 81001; 83690; 85025; 87077; 87086; 87181; 99282; 99284; Q9967; 81003

== ENCOUNTER 2021-09-26 21:03 | Outpatient (CLI) | payer MEDICARE, MEDICAID | END 2021-09-26 21:04 | disposition home or self-care (01) | LOC: EMS 21:03 | PROVIDERS: ATTEND Emergency Medicine | DX: K59.00 Constipation, unspecified (principal); Z74.09 Other reduced mobility | CPT/HCPCS: A0425; A0428 ==

== ENCOUNTER 2021-10-05 07:00 | Outpatient (CLI) | payer MEDICARE, MEDICAID ==
[2021-10-05 18:49] LABS: ALBUMIN 3.4 g/dL (3.2-5.5); ALBUMIN/GLOBULIN RATIO 0.6 (1.0-2.2); BILIRUBIN,TOTAL 0.3 mg/dL (0.2-1.0); CALCIUM 9.1 mg/dL (8.5-10.3); CREATININE 0.4 mg/dL (0.4-1.0); TOTAL PROTEIN 8.7 g/dL (6.7-8.2)
== END 2021-10-05 23:59 | disposition home or self-care (01) ==
LOC: LAB.R 07:00
PROVIDERS: ATTEND Hospitalist
DX: I10 Essential (primary) hypertension (principal); G35 Multiple sclerosis; D64.9 Anemia, unspecified
CPT/HCPCS: 80053; 85025

== ENCOUNTER 2021-10-10 15:30 | Outpatient (CLI) | payer MEDICARE, MEDICAID ==
[2021-10-10 16:22] LABS: BASOPHILS # (AUTO) 0.1 10^3/uL (0.0-0.1); BASOPHILS % (AUTO) 0.6 %; EOSINOPHILS # (AUTO) 0.6 10^3/uL (0.0-0.7); EOSINOPHILS % (AUTO) 4.7 %; HCT - HEMATOCRIT 35.8 % (37.0-47.0); HGB - HEMOGLOBIN 10.4 g/dL (12.0-16.0); LYMPHOCYTES # (AUTO) 3.6 10^3/uL (1.5-3.5); MEAN CORPUSCULAR HEMOGLOBIN 22.4 pg (27.0-31.0); MEAN CORPUSCULAR HGB CONC 29.1 g/dL (32.0-36.0); MEAN PLATELET VOLUME 9.7 fL (7.9-10.8); MONOCYTES # (AUTO) 1.2 10^3/uL (0.0-1.0); MONOCYTES % (AUTO) 8.9 %; NEUTROPHILS # (AUTO) 7.8 10^3/uL (1.5-6.6); NEUTROPHILS % (AUTO) 58.3 %; PLT - PLATELET COUNT 513 10^3/uL (130-450); RED BLOOD COUNT 4.65 10^6/uL (4.20-5.40); RED CELL DISTRIBUTION WIDTH 20.8 % (12.0-15.0); WHITE BLOOD COUNT 13.3 x10^3/uL (4.8-10.8)
[2021-10-10 16:27] LABS: SLIDE REVIEW? Indicated
[2021-10-10 17:31] LABS: PLATELET MORPHOLOGY 1+ GIANT PLATELETS (NORMAL); RBC MORPHOLOGY (MULTIPLE) 2+ ANISOCYTOSIS (NORMAL)
[2021-10-10 17:32] LABS: PLATELET ESTIMATE, MANUAL INCREASED (>450,000) (NORMAL)
== END 2021-10-10 15:31 | disposition home or self-care (01) ==
LOC: LAB.R 15:30
DX: D64.9 Anemia, unspecified (principal)
CPT/HCPCS: 85025

== ENCOUNTER 2021-10-12 10:30 | Outpatient (CLI) | payer MEDICARE, MEDICAID ==
[2021-10-12 12:31] LABS: BILIRUBIN,URINE NEGATIVE (NEGATIVE); GLUCOSE, URINE (UA) NEGATIVE (NEGATIVE); KETONES,URINE (UA) NEGATIVE (NEGATIVE); LEUKOCYTE ESTERASE, URINE LARGE (NEGATIVE); NITRITE,URINE NEGATIVE (NEGATIVE); OCCULT BLOOD,URINE LARGE (NEGATIVE); PROTEIN,URINE TRACE mg/dL (NEGATIVE); UROBILINOGEN,URINE 0.2 (NORMAL) E.U./dL (NORMAL)
[2021-10-12 12:57] LABS: CLARITY,URINE HAZY (CLEAR)
[2021-10-12 13:13] LABS: BACTERIA,URINE Few /HPF (None Seen); SQUAMOUS EPITHELIAL CELL,UR RARE Squamous (<= Few)
== END 2021-10-12 23:59 | disposition home or self-care (01) ==
LOC: LAB.R 10:30
DX: N39.0 Urinary tract infection, site not specified (principal)
CPT/HCPCS: 81001; 81003; 87086

== ENCOUNTER 2021-11-07 15:30 | Outpatient (CLI) | payer MEDICARE, MEDICAID ==
[2021-11-07 16:16] LABS: ALBUMIN 3.2 g/dL (3.2-5.5); ALBUMIN/GLOBULIN RATIO 0.7 (1.0-2.2); BILIRUBIN,TOTAL 0.3 mg/dL (0.2-1.0); CALCIUM 8.9 mg/dL (8.5-10.3); CREATININE 0.4 mg/dL (0.4-1.0); POTASSIUM 4.1 mmol/L (3.5-5.0); TOTAL PROTEIN 8.1 g/dL (6.7-8.2)
== END 2021-11-07 15:31 | disposition home or self-care (01) ==
LOC: LAB.R 15:30
PROVIDERS: ATTEND Hospitalist
DX: G35 Multiple sclerosis (principal); I10 Essential (primary) hypertension; E87.6 Hypokalemia
CPT/HCPCS: 80053

== ENCOUNTER 2021-11-16 08:00 | Outpatient (CLI) | payer MEDICARE, MEDICAID ==
[2021-11-16 11:41] LABS: ALBUMIN 3.2 g/dL (3.2-5.5); ALBUMIN/GLOBULIN RATIO 0.7 (1.0-2.2); BILIRUBIN,DIRECT 0.1 mg/dL (0.1-0.5); BILIRUBIN,TOTAL 0.3 mg/dL (0.2-1.0); CREATININE 0.3 mg/dL (0.4-1.0); POTASSIUM 3.2 mmol/L (3.5-5.0)
== END 2021-11-16 08:01 | disposition home or self-care (01) ==
LOC: LAB.R 08:00
PROVIDERS: ATTEND Hospitalist
DX: G35 Multiple sclerosis (principal); I10 Essential (primary) hypertension; D64.9 Anemia, unspecified; K58.9 Irritable bowel syndrome, unspecified
CPT/HCPCS: 80053; 80076

== ENCOUNTER 2022-01-28 14:46 | Outpatient (CLI) | payer MEDICARE, MEDICAID | END 2022-01-28 14:47 | disposition critical access hospital (66) | LOC: EMS 14:46 | DX: R41.82 Altered mental status, unspecified (principal) | CPT/HCPCS: A0425; A0427 ==

== ENCOUNTER 2022-01-28 14:51 | Inpatient (IN) | payer MEDICARE, MEDICAID ==
[2022-01-28] MEDS ORDERED: SODIUM CHLORIDE 0.9% 1,000 ML IV STA ×2 (14:59→18:40)
[2022-01-28] MEDS ORDERED: NALOXONE 0.4 MG/ML VIAL IVP STA (14:59)
--- NOTE | 2022-01-28 15:01 | ED Physician Documentation ---
PD HPI ALTERED MENTAL STATUS - Stated complaint Stated Complaint: AMS - History obtained from History obtained from: EMS - Additional information Additional information: 71-year-old woman comes from snf for altered mental status. Reportedly became altered over the last couple of hours. She was noted to have a fentanyl patch on that was removed prehospital and her blood sugar was normal prehospital. No reported fevers or trauma. She is unable to give a history due to altered mental status. 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: Fibroids, Other () : Incontinence, Chronic bladder infection HEENT: Chronic vision loss Psych: Depression, Anxiety Musculoskeletal: Paraplegia, Other Derm: Other (pressure ulcer of mitchell and sacrum in the past) - Past Surgical History Past Surgical History: Yes General: Colonoscopy, EGD Ortho: Other - Present Medications Home Medications: Ambulatory Orders Medication Instructions Recorded Confirmed Acetaminophen [Tylenol Extra 500 - 1,000 mg PO Q6HR PRN 01/28/18 01/28/22 Strength] Bisacodyl Supp [Dulcolax Supp] 1 supp NE DAILY PRN 01/28/18 01/28/22 Cholecalciferol (Vitamin D3) 2,000 unit PO DAILY 01/28/18 01/28/22 [Vitamin D3] Baclofen 10 mg PO TID 08/04/18 09/26/21 Calcium Carbonate [Tums (Calcium 1,000 mg PO Q4HR PRN 11/09/18 01/28/22 Carbonate 500mg)] DULoxetine [Cymbalta] 60 mg PO DAILY 11/09/18 01/28/22 Ferrous Gluconate [Iron] 240 mg PO DAILY 11/09/18 01/28/22 Lovastatin 10 mg PO QPM 11/09/18 01/28/22 Naloxone HCl 0.1 ml SLY PRN PRN 11/09/18 01/28/22 Sennosides [Senna Lax] 8.6 mg PO BID PRN 06/07/19 01/28/22 Albuterol Sulf [Ventolin Hfa 2 puffs INH Q4H PRN 08/23/20 01/28/22 Inhaler] Fluticasone/Salmeterol [Advair Hfa 1 puffs IH BID 12/30/20 01/28/22 115-21 Mcg Inhaler] Oxybutynin Chloride [Ditropan Xl] 10 mg PO DAILY 12/30/20 01/28/22 Potassium Chloride [Micro-K] 40 meq PO DAILY 12/30/20 01/28/22 hydroCHLOROthiazide 50 mg PO DAILY 12/30/20 01/28/22 [Hydrochlorothiazide] fentaNYL [Fentanyl 25mcg patch] 1 each TD Q3D 12/31/20 01/28/22 D-Mannose [Azo D-Mannose] 500 mg PO TIDWM 01/26/21 01/28/22 Mineral Oil [Mineral Oil Enema] 1 ea RC DAILY PRN 05/21/21 01/28/22 polyethylene glycoL 3350 [Miralax] 17 gm PO BID PRN 05/21/21 01/28/22 Ertapenem [INVanz] 1 gm IV Q24H 5 Days #5 gm 05/24/21 09/26/21 Pantoprazole [Protonix] 40 mg PO BID #60 tablet 05/24/21 01/28/22 Saccharomyces Boulardii [Florastor] 250 mg PO BIDWM #10 cap 05/24/21 01/28/22 - Allergies Allergies/Adverse Reactions: Allergies Allergy/AdvReac Type Severity Reaction Status Date / Time nystatin Allergy Unknown Verified 09/26/21 16:25 Penicillins Allergy Unknown Verified 09/26/21 16:25 - Social History Does the pt smoke?: No Smoking Status: Former smoker Does the pt drink ETOH?: No Does the pt have substance abuse?: No - Immunizations Immunizations are current?: Yes - POLST Patient has POLST: Yes POLST Status: DNR (Advanced care planning. Patient does have D POA which is her son Adan, has a POLST in place with the OSIEL and selective treatments. She is quite thoughtful and pragmatic and wane benefits and burdens of medical interventions and appointments. We will continue to anticipate decline in the future,) PD ED PE NORMAL - Vitals Vital signs reviewed: Yes - General General: No acute distress, Other (She will wake up and open her eyes and whisper with vigorous stimulus. Otherwise falling directly back to sleep.) - HEENT HEENT: Other (Small pupils, dry mucous membranes) - Neck Neck: Supple, no meningeal sign, No bony TTP - Cardiac Cardiac: RRR, No murmur - Respiratory Respiratory: No respiratory distress, Clear bilaterally - Abdomen Abdomen: Normal bowel sounds, Soft, Non tender - Back Back: No CVA TTP, No spinal TTP - Derm Derm: Normal color, Warm and dry - Extremities Extremities: No edema, No calf tenderness / cord - Neuro Eye Opening: To Voice Motor: Localizes to Pain Verbal: Confused GCS Score: 12 Results - Vitals Vitals: Vital Signs - 24 hr 01/28/22 01/28/22 01/28/22 15:05 15:11 15:41 Temperature 37.1 C Heart Rate 86 80 72 Respiratory 23 16 14 Rate Blood Pressure 98/54 L 98/54 L 119/67 O2 Saturation 85 L 100 100 01/28/22 01/28/22 01/28/22 16:11 16:25 16:42 Temperature Heart Rate 67 79 76 Respiratory 11 L 23 20 Rate Blood Pressure 96/54 L 115/89 H 155/54 H O2 Saturation 95 99 100 Oxygen O2 Source Room air Oxygen Flow Rate 6 - Labs Labs: Laboratory Tests 01/28/22 01/28/22 01/28/22 15:24 15:24 16:15 WBC 13.1 H RBC 4.92 Hgb 12.0 Hct 40.0 MCV 81.3 MCH 24.4 L MCHC 30.0 L RDW 17.2 H Plt Count TNP MPV 10.1 Neut # (Auto) 8.1 H Lymph # (Auto) 3.4 Bullock # (Auto) 1.0 Eos # (Auto) 0.4 Baso # (Auto) 0.1 Absolute Nucleated RBC 0.00 Nucleated RBC % 0.0 Platelet Estimate NORMAL (130-450,000) Platelet Morphology PLATELET CLUMPING Sodium 137 Potassium 3.8 Chloride 93 L Carbon Dioxide 34 H Anion Gap 10.0 BUN 17 Creatinine 0.4 Estimated GFR (MDRD) 156 Glucose 87 Calcium 9.2 Magnesium 1.9 Total Bilirubin 0.4 AST 18 ALT 21 Alkaline Phosphatase 81 Total Protein 8.4 H Albumin 3.2 Globulin 5.2 H Albumin/Globulin Ratio 0.6 L Lipase 24 Urine Color YELLOW Urine Clarity HAZY Urine pH 7.5 Ur Specific [place] 1.010 Urine Protein NEGATIVE Urine Glucose (UA) NEGATIVE Urine Ketones NEGATIVE Urine Occult Blood TRACE-INTA Urine Nitrite POSITIVE H Urine Bilirubin NEGATIVE Urine Urobilinogen 0.2 (NORMAL) Ur Leukocyte Esterase LARGE H Urine RBC 6-10 H Urine WBC >25 H Ur Squamous Epith Cells FEW Squamous Urine Crystals 0-2 Triple Phosphate Urine Bacteria Many H Ur Microscopic Review INDICATED Urine Culture Comments INDICATED Ethyl Alcohol < 5.0 PD MEDICAL DECISION MAKING - ED course ED course: 71-year-old woman presents with encephalopathy from a snf. 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 She had improved in route with the removal of her Fentanyl patch and she was given 0.4 mg of Narcan here which definitely increase her mental status but still seemed altered with a significant oxygen requirement. CT of t he head was unremarkable. Labs notable for mild leukocytosis, really nothing else to speak of on blood work. I spoke with sister, Alisha Bruce, , She was given an update and she will call back in a couple of hours. Subsequently a chest x-ray was done and relatively clear and her urinalysis has pyuria which given the elevated white count and encephalopathy could be consistent with her source. Prior records reviewed, most recent urine isolate was E. coli resistant to ampicillin but sensitive to all other agents. She has grown ESBL bugs in the past. PE is considered given that she is bedbound, but her respiratory drive is low explaining her hypoxemia which is antithetical to a PE, also she has no complaints of chest pain or trouble breathing. Discussed case with Dr. Corrigan for admission at 4:45 PM. Departure - Departure Disposition: 66 [facility] DC/Xfer Clinical Impression: Spastic paraplegia secondary to multiple sclerosis, Metabolic encephalopathy, Altered mental status, Urinary tract infection Condition: Serious
[2022-01-28 15:27] LABS: BASOPHILS # (AUTO) 0.1 10^3/uL (0.0-0.1); BASOPHILS % (AUTO) 0.5 %; EOSINOPHILS # (AUTO) 0.4 10^3/uL (0.0-0.7); EOSINOPHILS % (AUTO) 3.3 %; LYMPHOCYTES # (AUTO) 3.4 10^3/uL (1.5-3.5); LYMPHOCYTES % (AUTO) 25.8 %; MEAN CORPUSCULAR HEMOGLOBIN 24.4 pg (27.0-31.0); MEAN CORPUSCULAR VOLUME 81.3 fL (81.0-99.0); MEAN PLATELET VOLUME 10.1 fL (7.9-10.8); MONOCYTES % (AUTO) 7.7 %; NEUTROPHILS # (AUTO) 8.1 10^3/uL (1.5-6.6); NEUTROPHILS % (AUTO) 62.2 %; RED BLOOD COUNT 4.92 10^6/uL (4.20-5.40); RED CELL DISTRIBUTION WIDTH 17.2 % (12.0-15.0); WHITE BLOOD COUNT 13.1 x10^3/uL (4.8-10.8)
[2022-01-28 15:40] LABS: ALBUMIN 3.2 g/dL (3.2-5.5); ALBUMIN/GLOBULIN RATIO 0.6 (1.0-2.2); ALKALINE PHOSPHATASE 81 IU/L (42-121); ALT ALANINE AMINOTRANSFERASE 21 IU/L (10-60); AST ASPARTATE AMINOTRANSFERASE 18 IU/L (10-42); BILIRUBIN,TOTAL 0.4 mg/dL (0.2-1.0); BUN - BLOOD UREA NITROGEN 17 mg/dL (6-20); CALCIUM 9.2 mg/dL (8.5-10.3); CARBON DIOXIDE - CO2 34 mmol/L (21-32); CHLORIDE 93 mmol/L (101-111); CREATININE 0.4 mg/dL (0.4-1.0); ETOH - ETHANOL < 5.0 mg/dL; GFR - MDRD 156 (>89); GLUCOSE 87 mg/dL (70-100); LIPASE 24 U/L (22-51); MAGNESIUM 1.9 mg/dL (1.7-2.8); POTASSIUM 3.8 mmol/L (3.5-5.0); SODIUM 137 mmol/L (135-145); TOTAL PROTEIN 8.4 g/dL (6.7-8.2)
[2022-01-28 15:46] LABS: PLATELET ESTIMATE, MANUAL NORMAL (130-450,000) (NORMAL); PLATELET MORPHOLOGY PLATELET CLUMPING (NORMAL)
--- NOTE | 2022-01-28 16:02 | CT Report ---
PROCEDURE: HEAD WO INDICATIONS: ams TECHNIQUE: Noncontrast 4.5 mm thick angled axial sections acquired from the foramen magnum to the vertex. For r adiation dose reduction, the following was used: automated exposure control, adjustment of mA and/or kV according to patient size. COMPARISON: CT of 05/20/2021 FINDINGS: Image quality: Excellent. The ventricular system and cortical sulci demonstrate atrophy, consistent for patient's stated age. There are areas of hypodensity in the periventricular and subcortical white matter. There is no acut e intra or extra-axial fluid collection. No acute hemorrhage, mass lesion or midline shift. Brainst em is unremarkable. Globes are symmetrical. Sinuses demonstrate fluid within the sphenoid sinuses. Osseous structures are intact. IMPRESSION: 1. No acute intracranial process. 2. Moderate atrophy and chronic microvascular ischemic changes. 3. Fluid is present within the sphenoid sinuses suggesting sinusitis. Reviewed by: Magdalena Ramirez MD on 01/28/2022 4:01 PM PDT Approved by: Magdalena Ramirez MD on 01/28/2022 4:01 PM PDT Station ID: [id number]
[2022-01-28 16:28] LABS: BILIRUBIN,URINE NEGATIVE (NEGATIVE); GLUCOSE, URINE (UA) NEGATIVE (NEGATIVE); KETONES,URINE (UA) NEGATIVE (NEGATIVE); LEUKOCYTE ESTERASE, URINE LARGE (NEGATIVE); NITRITE,URINE POSITIVE (NEGATIVE); OCCULT BLOOD,URINE TRACE-INTA (NEGATIVE); PH,URINE 7.5 PH (5.0-7.5); PROTEIN,URINE NEGATIVE (NEGATIVE); UROBILINOGEN,URINE 0.2 (NORMAL) E.U./dL (NORMAL)
[2022-01-28 16:35] LABS: CLARITY,URINE HAZY (CLEAR); SQUAMOUS EPITHELIAL CELL,UR FEW Squamous (<= Few); WBC,URINE >25 /HPF (0-5)
[2022-01-28 16:36] LABS: BACTERIA,URINE Many /HPF (None Seen); CRYSTALS,URINE 0-2 Triple Phosphate /LPF
[2022-01-28] MEDS ORDERED: cefTRIAXone 1 GM in SODIUM CHLORIDE 0.9% MINIBAG 100 ML IV STA (16:39)
--- NOTE | 2022-01-28 16:41 | XRAY Report ---
PROCEDURE: Chest 1 View X-Ray INDICATIONS: dyspnea TECHNIQUE: One view of the chest was acquired. COMPARISON: 05/24/2021 FINDINGS: Surgical changes and devices: None. Lungs and pleura: No pleural effusions or pneumothorax. Lungs are clear. Mediastinum: Mediastinal contours appear normal. Heart size is normal. Bones and chest wall: No suspicious bony lesions. Overlying soft tissues appear unremarkable. IMPRESSION: Chest without acute cardiopulmonary abnormalities or focal airspace disease. Reviewed by: Grabiel Schneider MD on 01/28/2022 4:39 PM PDT Approved by: Grabiel Schneider MD on 01/28/2022 4:39 PM PDT Station ID: [id number]
[2022-01-28 18:17] LABS: B. PARAPERTUSSIS- RESP PCR PAN NOT DETECTED; B. PERTUSSIS- RESP PCR PANEL NOT DETECTED; CORONAVIRUS 229E-RESP PCR NOT DETECTED; CORONAVIRUS HKU1-RESP PCR NOT DETECTED; CORONAVIRUS NL63-RESP PCR NOT DETECTED; CORONAVIRUS OC43-RESP PCR NOT DETECTED; HUMAN METAPNEUMOVIRUS NOT DETECTED; INFLUENZA A- RESP PCR PANEL NOT DETECTED; INFLUENZA B - RESP PCR PANEL NOT DETECTED; PARAINFLUENZA VIRUS 1 NOT DETECTED; PARAINFLUENZA VIRUS 2 NOT DETECTED; PARAINFLUENZA VIRUS 3 NOT DETECTED; PARAINFLUENZA VIRUS 4 NOT DETECTED; RHINOVIRUS/ENTEROVIRUS NOT DETECTED; RSV- RESP PCR PANEL NOT DETECTED; SARS-CoV-2 -RESP PCR PANEL NOT DETECTED
[2022-01-28 18:18] LABS: C. PNEUMONIAE- RESP PCR PANEL NOT DETECTED; M. PNEUMONIAE- RESP PCR PANEL NOT DETECTED
[2022-01-28] MEDS ORDERED: SODIUM CHLORIDE FLUSH 0.9% 10 ML SYRINGE IVP PRN (20:05)
[2022-01-28] MEDS ORDERED: ONDANSETRON 4 MG/2 ML VIAL IVP PRN (20:05)
--- NOTE | 2022-01-28 20:18 | HISTORY & PHYSICAL EXAMINATION ---
Chief Complaint - Chief Complaint Chief Complaint: altered mental status, hypoxia History of Present Illness - Admitted From Admitted From:: [facility] ED - History Obtained From Records Reviewed: yes History obtained from: ED provider and records Exam Limitations: poor historian - History of Present Illness HPI Comment/Other: 71-year-old female with history of MS with spastic paraplegia and who is mostly wheelchair-bound who presents from [facility] today with altered mental status. She was noted to have a fentanyl patch on. Her oxygen saturation was 80% on room air. She was given Narcan and placed on supplemental oxygen. In the ED work-up included CBC which showed a white blood cell count of 13. Chest x-ray and CT of the brain were normal. The urine analysis was strongly indicative of a UTI. She was presented for admission for continued monitoring and further treatment. At bedside she is resting comfortably. She readily responds to verbal stimuli but is not able to give any significant or reliable history. She denies chest pain, dyspnea, fever or chills. She reported lower abdominal pain. 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 Review of [facility] shows mom to have had unlabeled "cancer" at her . Brother had renal cancer. Living Situation: With caregiver(s) Social History Notes: She was from [place], born and raised there. Came to the [place] to be with family (Uncle) off and on. Moved here when she met someone from the [place]. They were until his in February 2016. She resides at [facility] since 2018. She told me that she has a remote smoking history. Denies alcohol use. - Substance History Use: Uses substance without health or social issues: NONE - POLST Patient has POLST: Yes POLST Status: DNR (Advanced care planning. Patient does have D POA which is her son Adan, has a POLST in place with the OSIEL and selective treatments. She is quite thoughtful and pragmatic and wane benefits and burdens of medical interventions and appointments. We will continue to anticipate decline in the future,) Meds/Allgy - Home Medications Home Medications: Ambulatory Orders Medication Instructions Recorded Confirmed Acetaminophen [Tylenol Extra 500 - 1,000 mg PO Q6HR PRN 01/28/18 01/28/22 Strength] Bisacodyl Supp [Dulcolax Supp] 1 supp DC DAILY PRN 01/28/18 01/28/22 Cholecalciferol (Vitamin D3) 2,000 unit PO DAILY 01/28/18 01/28/22 [Vitamin D3] Baclofen 10 mg PO TID 08/04/18 09/26/21 Calcium Carbonate [Tums (Calcium 1,000 mg PO Q4HR PRN 11/09/18 01/28/22 Carbonate 500mg)] DULoxetine [Cymbalta] 60 mg PO DAILY 11/09/18 01/28/22 Ferrous Gluconate [Iron] 240 mg PO DAILY 11/09/18 01/28/22 Lovastatin 10 mg PO QPM 11/09/18 01/28/22 Naloxone HCl 0.1 ml SLY PRN PRN 11/09/18 01/28/22 Sennosides [Senna Lax] 8.6 mg PO BID PRN 06/07/19 01/28/22 Albuterol Sulf [Ventolin Hfa 2 puffs INH Q4H PRN 08/23/20 01/28/22 Inhaler] Fluticasone/Salmeterol [Advair Hfa 1 puffs IH BID 12/30/20 01/28/22 115-21 Mcg Inhaler] Oxybutynin Chloride [Ditropan Xl] 10 mg PO DAILY 12/30/20 01/28/22 Potassium Chloride [Micro-K] 40 meq PO DAILY 12/30/20 01/28/22 hydroCHLOROthiazide 50 mg PO DAILY 12/30/20 01/28/22 [Hydrochlorothiazide] fentaNYL [Fentanyl 25mcg patch] 1 each TD Q3D 12/31/20 01/28/22 D-Mannose [Azo D-Mannose] 500 mg PO TIDWM 01/26/21 01/28/22 Mineral Oil [Mineral Oil Enema] 1 ea RC DAILY PRN 05/21/21 01/28/22 polyethylene glycoL 3350 [Miralax] 17 gm PO BID PRN 05/21/21 01/28/22 Ertapenem [INVanz] 1 gm IV Q24H 5 Days #5 gm 05/24/21 09/26/21 Pantoprazole [Protonix] 40 mg PO BID #60 tablet 05/24/21 01/28/22 Saccharomyces Boulardii [Florastor] 250 mg PO BIDWM #10 cap 05/24/21 01/28/22 - Allergies Allergies/Adverse Reactions: Allergies Allergy/AdvReac Type Severity Reaction Status Date / Time nystatin Allergy Unknown Verified 09/26/21 16:25 Penicillins Allergy Unknown Verified 09/26/21 16:25 Review of Systems - Other Findings Other Findings: A 12 point review of system is limited because the patient is a poor historian and unable to provide a reliable history. Prior Level of Functionality: Patient has MS with spastic paraplegia and mostly transfers from bed to wheelch air. She resides at [facility]. She is dependent for activities of daily living. Exam - Vital Signs Vital Signs: Vital Signs x48h Temp Pulse Pulse Resp BP BP Pulse Ox 01/28/22 19:43 100 01/28/22 19:21 36.2 C L 76 14 116/71 100 01/28/22 19:00 72 16 111/60 100 01/28/22 18:55 77 20 113/51 L 100 01/28/22 18:30 66 14 85/50 L 100 01/28/22 18:00 71 13 121/65 100 01/28/22 17:30 68 12 114/51 L 100 01/28/22 17:00 67 9 L 114/51 L 100 01/28/22 16:42 76 20 155/54 H 100 01/28/22 16:25 79 23 115/89 H 99 01/28/22 16:11 67 11 L 96/54 L 95 01/28/22 15:41 72 14 119/67 100 01/28/22 15:11 80 16 98/54 L 100 01/28/22 15:05 37.1 C 86 23 98/54 L 85 L - Physical Exam General Appearance: positive: No acute distress, Alert Eyes Bilateral: positive: PERRL, EOMI ENT: positive: Dry mucous membranes Neck: positive: No JVD, Trachea midline Respiratory: positive: Chest non-tender, No respiratory distress, Breath sounds nml. negative: Wheezes, Rales, Rhonchi Cardiovascular: positive: Regular rate & rhythm, No murmur Abdomen: positive: Nml bowel sounds, No distention, Tenderness (mild tenderness). negative: Guarding, Rebound Back: positive: Nml inspection Skin: positive: Color nml, No rash, Warm, Dry, Other (?cutaneous fistula on lateral left gluteal area) Extremities: positive: Non-tender, No pedal edema, Other (foot-drop noted bilaterally) Neurologic/Psychiatric: positive: Mood/affect nml, Other (spastic paraplegic oriented to self and place) Conclusion/Plan - Problem List (1) Acute respiratory failure with hypoxia Conclusion/Plan: Suspected to be 2/2chronic opiate use. Patient had a fentanyl patch on. It was removed. Narcan given. On supplemental Oxygen. O2Sat 100% on 4L CXR normal. Will continue to monitor patient closely (2) Metabolic encephalopathy Conclusion/Plan: Likely 2/2 hypoxia and fentanyl Improved s/p removal of fentanyl patch and administration of narcan Continue monitoring (3) Spastic paraplegia secondary to multiple sclerosis Conclusion/Plan: On baclofen 10mg tid (4) Urinary tract infection Conclusion/Plan: WBC 13. Urine culture pending Patient started on Rocephin 1g IV daily Qualifiers: (5) Hyperlipidemia Conclusion/Plan: Atorvastatin 40mg po qpm - Lab Results Fish Bones: 01/28/22 15:24 01/28/22 15:24 Core Measures - Anticipated LOS I expect patient to be DC'd or transferred within 96 hours.: Yes - DVT/VTE - Prophylaxis VTE/DVT Device ordered at admit?: Yes
[2022-01-28] MEDS ORDERED: LIDOCAINE 2% URO-JET 5 ML SYRINGE UR ONE (20:22)
[2022-01-28] MEDS: BACLOFEN 10 MG TABLET PO SCH (21:40)
[2022-01-28] MEDS: ATORVASTATIN 40 MG TABLET PO SCH (21:40)
[2022-01-29] MEDS: SODIUM CHLORIDE FLUSH 0.9% 10 ML SYRINGE IVP SCH ×4 (00:59→21:04)
[2022-01-29 05:24] LABS: BASOPHILS # (AUTO) 0.1 10^3/uL (0.0-0.1); BASOPHILS % (AUTO) 0.5 %; EOSINOPHILS # (AUTO) 0.5 10^3/uL (0.0-0.7); EOSINOPHILS % (AUTO) 3.8 %; HGB - HEMOGLOBIN 9.9 g/dL (12.0-16.0); LYMPHOCYTES # (AUTO) 3.1 10^3/uL (1.5-3.5); LYMPHOCYTES % (AUTO) 23.3 %; MEAN CORPUSCULAR HGB CONC 29.1 g/dL (32.0-36.0); MEAN CORPUSCULAR VOLUME 82.5 fL (81.0-99.0); MEAN PLATELET VOLUME 9.9 fL (7.9-10.8); MONOCYTES # (AUTO) 0.9 10^3/uL (0.0-1.0); MONOCYTES % (AUTO) 6.6 %; NEUTROPHILS # (AUTO) 8.6 10^3/uL (1.5-6.6); NEUTROPHILS % (AUTO) 65.3 %; PLT - PLATELET COUNT 396 10^3/uL (130-450); RED BLOOD COUNT 4.12 10^6/uL (4.20-5.40); RED CELL DISTRIBUTION WIDTH 17.2 % (12.0-15.0); WHITE BLOOD COUNT 13.1 x10^3/uL (4.8-10.8)
[2022-01-29 05:37] LABS: BUN - BLOOD UREA NITROGEN 16 mg/dL (6-20); CALCIUM 8.5 mg/dL (8.5-10.3); CARBON DIOXIDE - CO2 33 mmol/L (21-32); CHLORIDE 100 mmol/L (101-111); CREATININE < 0.3 mg/dL (0.4-1.0); GLUCOSE 101 mg/dL (70-100); POTASSIUM 3.2 mmol/L (3.5-5.0); SODIUM 139 mmol/L (135-145)
[2022-01-29] MEDS: BACLOFEN 10 MG TABLET PO SCH ×3 (05:37→21:03)
[2022-01-29] MEDS: DULoxetine 30 MG CAPSULE PO SCH (08:17)
[2022-01-29] MEDS: cefTRIAXone 1 GM in SODIUM CHLORIDE 0.9% MINIBAG 100 ML IV SCH (08:17)
--- NOTE | 2022-01-29 18:08 | PROVIDER PROGRESS NOTE ---
Assessment/Plan - Problem List (1) Acute respiratory failure with hypoxia Assessment/Plan: Suspected to be 2/2chronic opiate use and muscle weakness from MS. Patient had a fentanyl patch on. It was removed. Narcan given. On supplemental Oxygen. O2Sat 100% on 4L CXR normal. Will continue to monitor patient closely (2) Metabolic encephalopathy Conclusion/Plan: Likely 2/2 hypoxia and fentanyl. s/p removal of fentanyl patch and administration of narcan She is still very sleepy, confused when awoken, slept most of the day. Continue monitoring (3) Spastic paraplegia secondary to multiple sclerosis Conclusion/Plan: On baclofen 10mg tid (4) Urinary tract infection Conclusion/Plan: WBC mi nimally improved. Urine culture pending Patient started on Rocephin 1g IV daily (5) Hyperlipidemia Conclusion/Plan: Atorvastatin 40mg po qpm - Current Meds Current Meds: Current Medications Generic Name Dose Route Start Last Admin Trade Name Freq PRN Reason Stop Dose Admin Atorvastatin Calcium 40 mg 01/28/22 21:00 01/28/22 21:40 Atorvastatin 40 Mg Tablet PO Not Given QPM JOSE FRANCISCO Baclofen 10 mg 01/28/22 22:00 01/29/22 13:25 Baclofen 10 Mg Tablet PO 10 mg TID JOSE FRANCISCO Administration Duloxetine HCl 60 mg 01/29/22 09:00 01/29/22 08:17 Duloxetine 30 Mg Capsule PO 60 mg DAILY JOSE FRANCISCO Administration Ceftriaxone Sodium 1 gm/ 100 mls @ 200 mls/hr 01/29/22 09:00 01/29/22 08:50 Sodium Chloride IV Infused DAILY JOSE FRANCISCO Infusion Sodium Chloride 10 ml 01/29/22 01:00 01/29/22 16:38 Sodium Chloride Flush 0.9% 10 Ml Syringe IVP 10 ml 0100,0900,1700 JOSE FRANCISCO Administration - Lab Result Fish Bone Diagrams: 01/31/22 04:44 01/31/22 04:44 - Additional Planning My Orders: My Active Orders 01/28/22 18:50 Code Status [OTHERS] Routine 01/30/22 08:00 Multivitamin W/Minerals [Theragran M] 1 tab PO DAILYWM 01/30/22 09:00 polyethylene glycoL 3350 [Miralax] 17 gm PO DAILY Subjective - Subjective Patient Reports: Other (Sleepy) Objective Vital Signs: Vital Signs - 24 hr 01/28/22 01/28/22 01/28/22 18:30 18:55 19:00 Temperature Heart Rate 66 77 72 Heart Rate [ Brachial] Heart Rate [ Monitoring electrodes] Respiratory 14 20 16 Rate Blood Pressure 85/50 L 113/51 L 111/60 Blood Pressure [Right Brachial artery] O2 Saturation 100 100 100 01/28/22 01/28/22 01/28/22 19:21 19:43 21:42 Temperature 36.2 C L Heart Rate Heart Rate [ Brachial] Heart Rate [ 76 Monitoring electrodes] Respiratory 14 Rate Blood Pressure Blood Pressure 116/71 [Right Brachial artery] O2 Saturation 100 100 97 01/29/22 01/29/22 01/29/22 00:00 00:41 01:00 Temperature 36.4 C L Heart Rate Heart Rate [ 72 Brachial] Heart Rate [ Monitoring electrodes] Respiratory 16 Rate Blood Pressure Blood Pressure 94/50 L [Right Brachial artery] O2 Saturation 100 95 87 L 01/29/22 01/29/22 01/29/22 01:01 07:59 08:27 Temperature 36.5 C Heart Rate 71 Heart Rate [ 71 Brachial] Heart Rate [ Monitoring electrodes] Respiratory 20 20 Rate Blood Pressure Blood Pressure 110/60 [Right Brachial artery] O2 Saturation 94 98 98 01/29/22 15:47 Temperature 37.0 C Heart Rate Heart Rate [ 79 Brachial] Heart Rate [ Monitoring electrodes] Respiratory 14 Rate Blood Pressure Blood Pressure 114/51 L [Right Brachial artery] O2 Saturation 95 Oxygen O2 Source Nasal cannula Oxygen Flow Rate 6 I&O (Last 24 Hrs): Intake and Output Totals x24h 01/27/22 01/28/22 01/29/22 23:59 23:59 23:59 Intake Total 1100 1680 Output Total 0 400 Balance 1100 1280 General: Other (Sleepy) HEENT: Other (Dry mucosa) Neck: Supple, No JVD Neuro: Other (sleepy, chronic spastic paralysis of lower body) Cardiovascular: Regular rate Respiratory: No respiratory distress Abdomen: Soft Extremities: No edema - Results Results: Laboratory Results WBC 13.1 x10^3/uL (4.8-10.8) H 01/29/22 04:28 RBC 4.12 10^6/uL (4.20-5.40) L 01/29/22 04:28 Hgb 9.9 g/dL (12.0-16.0) L 01/29/22 04:28 Hct 34.0 % (37.0-47.0) L 01/29/22 04:28 MCV 82.5 fL (81.0-99.0) 01/29/22 04:28 MCH 24.0 pg (27.0-31.0) L 01/29/22 04:28 MCHC 29.1 g/dL (32.0-36.0) L 01/29/22 04:28 RDW 17.2 % (12.0-15.0) H 01/29/22 04:28 Plt Count 396 10^3/uL (130-450) 01/29/22 04:28 MPV 9.9 fL (7.9-10.8) 01/29/22 04:28 Neut # (Auto) 8.6 10^3/uL (1.5-6.6) H 01/29/22 04:28 Lymph # (Auto) 3.1 10^3/uL (1.5-3.5) 01/29/22 04:28 [place] # (Auto) 0.9 10^3/uL (0.0-1.0) 01/29/22 04:28 Eos # (Auto) 0.5 10^3/uL (0.0-0.7) 01/29/22 04:28 Baso # (Auto) 0.1 10^3/uL (0.0-0.1) 01/29/22 04:28 Absolute Nucleated RBC 0.00 x10^3/uL 01/29/22 04:28 Nucleated RBC % 0.0 /100WBC 01/29/22 04:28 Platelet Estimate NORMAL (130-450,000) (NORMAL) 01/28/22 15:24 Platelet Morphology PLATELET CLUMPING (NORMAL) 01/28/22 15:24 Sodium 139 mmol/L (135-145) 01/29/22 04:28 Potassium 3.2 mmol/L (3.5-5.0) L 01/29/22 04:28 Chloride 100 mmol/L (101-111) L 01/29/22 04:28 Carbon Dioxide 33 mmol/L (21-32) H 01/29/22 04:28 Anion Gap 6.0 (6-13) 01/29/22 04:28 BUN 16 mg/dL (6-20) 01/29/22 04:28 Creatinine < 0.3 mg/dL (0.4-1.0) L 01/29/22 04:28 Estimated GFR (MDRD) TNP 01/29/22 04:28 Glucose 101 mg/dL (70-100) H 01/29/22 04:28 Calcium 8.5 mg/dL (8.5-10.3) 01/29/22 04:28 Magnesium 1.9 mg/dL (1.7-2.8) 01/28/22 15:24 Total Bilirubin 0.4 mg/dL (0.2-1.0) 01/28/22 15:24 AST 18 IU/L (10-42) 01/28/22 15:24 ALT 21 IU/L (10-60) 01/28/22 15:24 Alkaline Phosphatase 81 IU/L (42-121) 01/28/22 15:24 Total Protein 8.4 g/dL (6.7-8.2) H 01/28/22 15:24 Albumin 3.2 g/dL (3.2-5.5) 01/28/22 15:24 Globulin 5.2 g/dL (2.1-4.2) H 01/28/22 15:24 Albumin/Globulin Ratio 0.6 (1.0-2.2) L 01/28/22 15:24 Lipase 24 U/L (22-51) 01/28/22 15:24 Urine Color YELLOW 01/28/22 16:15 Urine Clarity HAZY (CLEAR) 01/28/22 16:15 Urine pH 7.5 PH (5.0-7.5) 01/28/22 16:15 Ur Specific [place] 1.010 (1.002-1.030) 01/28/22 16:15 Urine Protein NEGATIVE mg/dL (NEGATIVE) 01/28/22 16:15 Urine Glucose (UA) NEGATIVE mg/dL (NEGATIVE) 01/28/22 16:15 Urine Ketones NEGATIVE mg/dL (NEGATIVE) 01/28/22 16:15 Urine Occult Blood TRACE-INTA (NEGATIVE) 01/28/22 16:15 Urine Nitrite POSITIVE (NEGATIVE) H 01/28/22 16:15 Urine Bilirubin NEGATIVE (NEGATIVE) 01/28/22 16:15 Urine Urobilinogen 0.2 (NORMAL) E.U./dL (NORMAL) 01/28/22 16:15 Ur Leukocyte Esterase LARGE (NEGATIVE) H 01/28/22 16:15 Urine RBC 6-10 /HPF (0-5) H 01/28/22 16:15 Urine WBC >25 /HPF (0-5) H 01/28/22 16:15 Ur Squamous Epith Cells FEW Squamous (<= Few) 01/28/22 16:15 Urine Crystals 0-2 Triple Phosphate /LPF 01/28/22 16:15 Urine Bacteria Many /HPF (None Seen) H 01/28/22 16:15 Ur Microscopic Review INDICATED 01/28/22 16:15 Urine Culture Comments INDICATED 01/28/22 16:15 Nasal Adenovirus (PCR) NOT DETECTED 01/28/22 16:58 Nasal B. parapertussis DNA (PCR) NOT DETECTED 01/28/22 16:58 Nasal Coronavir 229E PCR NOT DETECTED 01/28/22 16:58 Nasal Coronavir HKU1 PCR NOT DETECTED 01/28/22 16:58 Nasal Coronavir NL63 PCR NOT DETECTED 01/28/22 16:58 Nasal Coronavir OC43 PCR NOT DETECTED 01/28/22 16:58 Nasal Enterovir/Rhinovir PCR NOT DETECTED 01/28/22 16:58 Nasal Influenza B PCR NOT DETECTED 01/28/22 16:58 Nasal Influenza A PCR NOT DETECTED 01/28/22 16:58 Nasal Parainfluen 1 PCR NOT DETECTED 01/28/22 16:58 Nasal Parainfluen 2 PCR NOT DETECTED 01/28/22 16:58 Nasal Parainfluen 3 PCR NOT DETECTED 01/28/22 16:58 Nasal Parainfluen 4 PCR NOT DETECTED 01/28/22 16:58 Nasal RSV (PCR) NOT DETECTED 01/28/22 16:58 Nasal B.pertussis DNA PCR NOT DETECTED 01/28/22 16:58 Nasal C.pneumoniae (PCR) NOT DETECTED 01/28/22 16:58 Morgan Human Metapneumo PCR NOT DETECTED 01/28/22 16:58 Nasal M.pneumoniae (PCR) NOT DETECTED 01/28/22 16:58 Nasal SARS-CoV-2 (PCR) NOT DETECTED 01/28/22 16:58 Ethyl Alcohol < 5.0 mg/dL 01/28/22 15:24 - Procedures Procedures: Procedures EXCISION OF DUODENUM, ENDO, DIAGN (05/20/21) EXCISION OF ESOPHAGOGASTRIC JUNCTION, ENDO, DIAGN (05/20/21) EXCISION OF ESOPHAGUS, ENDO, DIAGN (05/20/21) EXCISION OF STOMACH, ENDO, DIAGN (05/20/21) INSERTION OF INFUSION DEV INTO SUP VENA CAVA, PERC APPROACH (05/20/21) INSPECTION OF LOWER INTESTINAL TRACT, ENDO (05/04/18)
[2022-01-29] MEDS: ATORVASTATIN 40 MG TABLET PO SCH (21:03)
[2022-01-30 05:21] LABS: BASOPHILS # (AUTO) 0.1 10^3/uL (0.0-0.1); BASOPHILS % (AUTO) 0.5 %; EOSINOPHILS # (AUTO) 0.4 10^3/uL (0.0-0.7); HCT - HEMATOCRIT 35.2 % (37.0-47.0); HGB - HEMOGLOBIN 10.2 g/dL (12.0-16.0); LYMPHOCYTES # (AUTO) 2.5 10^3/uL (1.5-3.5); LYMPHOCYTES % (AUTO) 17.5 %; MEAN CORPUSCULAR HEMOGLOBIN 24.1 pg (27.0-31.0); MEAN PLATELET VOLUME 10.1 fL (7.9-10.8); MONOCYTES # (AUTO) 0.9 10^3/uL (0.0-1.0); MONOCYTES % (AUTO) 6.1 %; NEUTROPHILS # (AUTO) 10.4 10^3/uL (1.5-6.6); NEUTROPHILS % (AUTO) 72.5 %; PLT - PLATELET COUNT 442 10^3/uL (130-450); RED BLOOD COUNT 4.24 10^6/uL (4.20-5.40); RED CELL DISTRIBUTION WIDTH 17.2 % (12.0-15.0); WHITE BLOOD COUNT 14.3 x10^3/uL (4.8-10.8)
[2022-01-30 05:31] LABS: CALCIUM 8.7 mg/dL (8.5-10.3); CREATININE 0.3 mg/dL (0.4-1.0); POTASSIUM 3.6 mmol/L (3.5-5.0)
[2022-01-30] MEDS: BACLOFEN 10 MG TABLET PO SCH ×3 (05:48→20:48)
[2022-01-30] MEDS: DULoxetine 30 MG CAPSULE PO SCH (08:48)
[2022-01-30] MEDS: polyethylene glycoL 3350 17 GM PACKET PO SCH (08:48)
[2022-01-30] MEDS: MULTIVITAMIN W/MINERALS TABLET PO SCH (08:48)
[2022-01-30] MEDS: cefTRIAXone 1 GM in SODIUM CHLORIDE 0.9% MINIBAG 100 ML IV SCH (08:48)
[2022-01-30] MEDS: SODIUM CHLORIDE FLUSH 0.9% 10 ML SYRINGE IVP SCH ×2 (08:49→16:38)
--- NOTE | 2022-01-30 14:16 | PHARMACY PROGRESS NOTE ---
- Best Possible Medication History Admit Date and Time: 01/28/22 1842 Processed by: Pharmacy Medication History completed: Yes Secondary Source(s): Insurance records, Facility MAR as ONLY source As the person ultimately responsible for medication therapy, providers are able to order a medication from an existing home medication list in [facility] via the "Reconcile Routine" prior to Confirmation of that medication by ict support technicians. Such practice is discouraged except when the physician, in their clinical judgment, deems that a medical need exists for a medication without regard to previous use.
--- NOTE | 2022-01-30 14:47 | PROVIDER PROGRESS NOTE ---
Assessment/Plan - Problem List (1) Urinary tract infection Qualifiers: Assessment/Plan: WBC minimally improved Urine culture result and sens pending Patient is on Rocephin 1g IV daily (2) Chronic indwelling Good Conclusion/Plan: This was the likely cause of her UTI Foly has been changed (3) Spastic paraplegia secondary to multiple sclerosis Conclusion/Plan: On baclofen 10mg tid (4) Hyperlipidemia Conclusion/Plan: On Atorvastatin 40mg po qpm (5) Acute respiratory failure with hypoxia Assessment/Plan: Resolved. O2 has been weaned down to room air. CXR normal. Suspected to be 2/2chronic opiate use and muscle weakness from MS. Patient had a fentanyl patch on. It was removed. Narcan given. (6) Metabolic encephalopathy Conclusion/Plan: Resolved. It was Likely 2/2 hypoxia and fentany, s/p removal of fentanyl patch and administration of narcan Continue monitoring - Current Meds Current Meds: Current Medications Generic Name Dose Route Start Last Admin Trade Name Freq PRN Reason Stop Dose Admin Atorvastatin Calcium 40 mg 01/28/22 21:00 01/29/22 21:03 Atorvastatin 40 Mg Tablet PO 40 mg QPM JOSE FRANCISCO Administration Baclofen 10 mg 01/28/22 22:00 01/30/22 13:23 Baclofen 10 Mg Tablet PO 10 mg TID JOSE FRANCISCO Administration Duloxetine HCl 60 mg 01/29/22 09:00 01/30/22 08:48 Duloxetine 30 Mg Capsule PO 60 mg DAILY JOSE FRANCISCO Administration Ceftriaxone Sodium 1 gm/ 100 mls @ 200 mls/hr 01/29/22 09:00 01/30/22 10:03 Sodium Chloride IV Infused DAILY JOSE FRANCISCO Infusion Multivitamins/Minerals 1 tab 01/30/22 08:00 01/30/22 08:48 Multivitamin W/Minerals Tablet PO 1 tab DAILYWM JOSE FRANCISCO Administration Polyethylene Glycol 17 gm 01/30/22 09:00 01/30/22 08:48 Polyethylene Glycol 3350 17 Gm Packet PO 17 gm DAILY JOSE FRANCISCO Administration Sodium Chloride 10 ml 01/29/22 01:00 01/30/22 08:49 Sodium Chloride Flush 0.9% 10 Ml Syringe IVP 10 ml 0100,0900,1700 JOSE FRANCISCO Administration - Lab Result Fish Bone Diagrams: 01/31/22 04:44 01/31/22 04:44 - Additional Planning My Orders: My Active Orders 01/30/22 Evaluate and Treat OT [OT] Routine Evaluate and Treat PT [PT] Routine 01/30/22 08:00 Multivitamin W/Minerals [Theragran M] 1 tab PO DAILYWM 01/30/22 09:00 polyethylene glycoL 3350 [Miralax] 17 gm PO DAILY Subjective - Subjective Patient Reports: Feeling Better, Other (More awake and communicating normally) Objective Vital Signs: Vital Signs - 24 hr 01/29/22 01/29/22 01/30/22 15:47 23:37 08:00 Temperature 37.0 C 36.6 C 36.9 C Heart Rate [ 79 73 75 Brachial] Heart Rate [ Sitting] Heart Rate [ Supine] Respiratory 14 18 16 Rate Blood Pressure 114/51 L 114/60 114/75 [Right Brachial artery] Blood Pressure [Sitting] Blood Pressure [Supine] O2 Saturation 95 98 94 01/30/22 01/30/22 11:37 11:40 Temperature Heart Rate [ Brachial] Heart Rate [ 73 73 Sitting] Heart Rate [ 76 76 Supine] Respiratory Rate Blood Pressure [Right Brachial artery] Blood Pressure 127/62 127/62 [Sitting] Blood Pressure 131/55 H 131/55 H [Supine] O2 Saturation Oxygen O2 Source Nasal cannula Oxygen Flow Rate 6 I&O (Last 24 Hrs): Intake and Output Totals x24h 01/28/22 01/29/22 01/30/22 23:59 23:59 23:59 Intake Total 1100 1780 890 Output Total 0 550 525 Balance 1100 1230 365 General: Alert, Oriented x3, Other (Skin of face is greasy) HEENT: Mucous membr. moist/pink, Other (Poor dentition and oral hygiene) Neck: Supple, No JVD Neuro: Alert, Other (cjhronic spastic paralysis of lower body) Cardiovascular: Regular rate Respiratory: No respiratory distress Abdomen: Soft Extremities: No edema - Results Results: Laboratory Results WBC 14.3 x10^3/uL (4.8-10.8) H 01/30/22 04:20 RBC 4.24 10^6/uL (4.20-5.40) 01/30/22 04:20 Hgb 10.2 g/dL (12.0-16.0) L 01/30/22 04:20 Hct 35.2 % (37.0-47.0) L 01/30/22 04:20 MCV 83.0 fL (81.0-99.0) 01/30/22 04:20 MCH 24.1 pg (27.0-31.0) L 01/30/22 04:20 MCHC 29.0 g/dL (32.0-36.0) L 01/30/22 04:20 RDW 17.2 % (12.0-15.0) H 01/30/22 04:20 Plt Count 442 10^3/uL (130-450) 01/30/22 04:20 MPV 10.1 fL (7.9-10.8) 01/30/22 04:20 Neut # (Auto) 10.4 10^3/uL (1.5-6.6) H 01/30/22 04:20 Lymph # (Auto) 2.5 10^3/uL (1.5-3.5) 01/30/22 04:20 [place] # (Auto) 0.9 10^3/uL (0.0-1.0) 01/30/22 04:20 Eos # (Auto) 0.4 10^3/uL (0.0-0.7) 01/30/22 04:20 Baso # (Auto) 0.1 10^3/uL (0.0-0.1) 01/30/22 04:20 Absolute Nucleated RBC 0.00 x10^3/uL 01/30/22 04:20 Nucleated RBC % 0.0 /100WBC 01/30/22 04:20 Platelet Estimate NORMAL (130-450,000) (NORMAL) 01/28/22 15:24 Platelet Morphology PLATELET CLUMPING (NORMAL) 01/28/22 15:24 Sodium 145 mmol/L (135-145) 01/30/22 04:20 Potassium 3.6 mmol/L (3.5-5.0) 01/30/22 04:20 Chloride 102 mmol/L (101-111) 01/30/22 04:20 Carbon Dioxide 34 mmol/L (21-32) H 01/30/22 04:20 Anion Gap 9.0 (6-13) 01/30/22 04:20 BUN 20 mg/dL (6-20) 01/30/22 04:20 Creatinine 0.3 mg/dL (0.4-1.0) L 01/30/22 04:20 Estimated GFR (MDRD) 218 (>89) 01/30/22 04:20 Glucose 115 mg/dL (70-100) H 01/30/22 04:20 Calcium 8.7 mg/dL (8.5-10.3) 01/30/22 04:20 Magnesium 1.9 mg/dL (1.7-2.8) 01/28/22 15:24 Total Bilirubin 0.4 mg/dL (0.2-1.0) 01/28/22 15:24 AST 18 IU/L (10-42) 01/28/22 15:24 ALT 21 IU/L (10-60) 01/28/22 15:24 Alkaline Phosphatase 81 IU/L (42-121) 01/28/22 15:24 Total Protein 8.4 g/dL (6.7-8.2) H 01/28/22 15:24 Albumin 3.2 g/dL (3.2-5.5) 01/28/22 15:24 Globulin 5.2 g/dL (2.1-4.2) H 01/28/22 15:24 Albumin/Globulin Ratio 0.6 (1.0-2.2) L 01/28/22 15:24 Lipase 24 U/L (22-51) 01/28/22 15:24 Urine Color YELLOW 01/28/22 16:15 Urine Clarity HAZY (CLEAR) 01/28/22 16:15 Urine pH 7.5 PH (5.0-7.5) 01/28/22 16:15 Ur Specific [place] 1.010 (1.002-1.030) 01/28/22 16:15 Urine Protein NEGATIVE mg/dL (NEGATIVE) 01/28/22 16:15 Urine Glucose (UA) NEGATIVE mg/dL (NEGATIVE) 01/28/22 16:15 Urine Ketones NEGATIVE mg/dL (NEGATIVE) 01/28/22 16:15 Urine Occult Blood TRACE-INTA (NEGATIVE) 01/28/22 16:15 Urine Nitrite POSITIVE (NEGATIVE) H 01/28/22 16:15 Urine Bilirubin NEGATIVE (NEGATIVE) 01/28/22 16:15 Urine Urobilinogen 0.2 (NORMAL) E.U./dL (NORMAL) 01/28/22 16:15 Ur Leukocyte Esterase LARGE (NEGATIVE) H 01/28/22 16:15 Urine RBC 6-10 /HPF (0-5) H 01/28/22 16:15 Urine WBC >25 /HPF (0-5) H 01/28/22 16:15 Ur Squamous Epith Cells FEW Squamous (<= Few) 01/28/22 16:15 Urine Crystals 0-2 Triple Phosphate /LPF 01/28/22 16:15 Urine Bacteria Many /HPF (None Seen) H 01/28/22 16:15 Ur Microscopic Review INDICATED 01/28/22 16:15 Urine Culture Comments INDICATED 01/28/22 16:15 Nasal Adenovirus (PCR) NOT DETECTED 01/28/22 16:58 Nasal B. parapertussis DNA (PCR) NOT DETECTED 01/28/22 16:58 Nasal Coronavir 229E PCR NOT DETECTED 01/28/22 16:58 Nasal Coronavir HKU1 PCR NOT DETECTED 01/28/22 16:58 Nasal Coronavir NL63 PCR NOT DETECTED 01/28/22 16:58 Nasal Coronavir OC43 PCR NOT DETECTED 01/28/22 16:58 Nasal Enterovir/Rhinovir PCR NOT DETECTED 01/28/22 16:58 Nasal Influenza B PCR NOT DETECTED 01/28/22 16:58 Nasal Influenza A PCR NOT DETECTED 01/28/22 16:58 Nasal Parainfluen 1 PCR NOT DETECTED 01/28/22 16:58 Nasal Parainfluen 2 PCR NOT DETECTED 01/28/22 16:58 Nasal Parainfluen 3 PCR NOT DETECTED 01/28/22 16:58 Nasal Parainfluen 4 PCR NOT DETECTED 01/28/22 16:58 Nasal RSV (PCR) NOT DETECTED 01/28/22 16:58 Nasal B.pertussis DNA PCR NOT DETECTED 01/28/22 16:58 Nasal C.pneumoniae (PCR) NOT DETECTED 01/28/22 16:58 [place] Human Metapneumo PCR NOT DETECTED 01/28/22 16:58 Nasal M.pneumoniae (PCR) NOT DETECTED 01/28/22 16:58 Nasal SARS-CoV-2 (PCR) NOT DETECTED 01/28/22 16:58 Ethyl Alcohol < 5.0 mg/dL 01/28/22 15:24 - Procedures Procedures: Procedures EXCISION OF DUODENUM, ENDO, DIAGN (05/20/21) EXCISION OF ESOPHAGOGASTRIC JUNCTION, ENDO, DIAGN (05/20/21) EXCISION OF ESOPHAGUS, ENDO, DIAGN (05/20/21) EXCISION OF STOMACH, ENDO, DIAGN (05/20/21) INSERTION OF INFUSION DEV INTO SUP VENA CAVA, PERC APPROACH (05/20/21) INSPECTION OF LOWER INTESTINAL TRACT, ENDO (05/04/18)
[2022-01-30] MEDS: ATORVASTATIN 40 MG TABLET PO SCH (20:48)
[2022-01-31] MEDS: SODIUM CHLORIDE FLUSH 0.9% 10 ML SYRINGE IVP SCH ×4 (00:25→23:40)
[2022-01-31] MEDS: BACLOFEN 10 MG TABLET PO SCH ×3 (05:05→20:59)
[2022-01-31 05:27] LABS: BASOPHILS # (AUTO) 0.1 10^3/uL (0.0-0.1); BASOPHILS % (AUTO) 0.7 %; EOSINOPHILS # (AUTO) 0.4 10^3/uL (0.0-0.7); EOSINOPHILS % (AUTO) 3.1 %; HGB - HEMOGLOBIN 10.2 g/dL (12.0-16.0); LYMPHOCYTES # (AUTO) 2.9 10^3/uL (1.5-3.5); LYMPHOCYTES % (AUTO) 21.9 %; MEAN CORPUSCULAR HEMOGLOBIN 23.8 pg (27.0-31.0); MEAN CORPUSCULAR HGB CONC 29.1 g/dL (32.0-36.0); MEAN CORPUSCULAR VOLUME 81.8 fL (81.0-99.0); MEAN PLATELET VOLUME 9.7 fL (7.9-10.8); MONOCYTES # (AUTO) 0.7 10^3/uL (0.0-1.0); MONOCYTES % (AUTO) 4.9 %; NEUTROPHILS # (AUTO) 9.3 10^3/uL (1.5-6.6); NEUTROPHILS % (AUTO) 68.9 %; PLT - PLATELET COUNT 430 10^3/uL (130-450); RED BLOOD COUNT 4.28 10^6/uL (4.20-5.40); WHITE BLOOD COUNT 13.5 x10^3/uL (4.8-10.8)
[2022-01-31 05:37] LABS: CALCIUM 8.6 mg/dL (8.5-10.3); CREATININE 0.3 mg/dL (0.4-1.0); POTASSIUM 3.7 mmol/L (3.5-5.0)
[2022-01-31] MEDS: polyethylene glycoL 3350 17 GM PACKET PO SCH (08:00)
[2022-01-31] MEDS: DULoxetine 30 MG CAPSULE PO SCH (08:00)
[2022-01-31] MEDS: MULTIVITAMIN W/MINERALS TABLET PO SCH (08:00)
[2022-01-31] MEDS: cefTRIAXone 1 GM in SODIUM CHLORIDE 0.9% MINIBAG 100 ML IV SCH (08:00)
--- NOTE | 2022-01-31 12:09 | PROVIDER PROGRESS NOTE ---
Assessment/Plan - Problem List (1) Urinary tract infection Qualifiers: Assessment/Plan: Her urine culture has grown 2 species: Klebsiella oxytocin and Providencia stuartii. The Providencia bacteria is only sensitive to cefepime, ceftriaxone and ertapenem. Her current empiric IV ceftriaxone has improved her white blood count, her altered mental status and overall clinical condition. The Good catheter has been changed. I reviewed these culture and sens results with our pharmacist (Tiffanie). Options are to take a chance and switch to an oral third-generation cephalosporin to complete treatment for this UTI, or to continue with IV ceftriaxone 1 g daily for 10 more days for 14-day course (which is the preferred management). Will request that she go to a SNF for 10 days of daily IV ceftriaxone. Discussed with our [facility] nurse and UM. (2) Chronic indwelling Good Conclusion/Plan: This was the likely cause of her UTI Good has been changed (3) Spastic paraplegia secondary to multiple sclerosis Conclusion/Plan: On baclofen 10mg tid (4) MS Conclusion/Plan: As per Hx. She had PT eval and is entirely dependant obn caregivers, can no longer help with her own transfers. (5) Acute respiratory failure with hypoxia Assessment/Plan: Resolved. CXR was normal at admnission. Suspected to be secondary to chronic opiate use and muscle weakness from MS. Patient had a fentanyl patch on. It was removed. Narcan given and helped. Her suppl O2 has been weaned down to room air. (6) Metabolic encephalopathy Conclusion/Plan: Resolved. It was Likely due to the new UTI and from hypoxia and fentany. We removed fentanyl patch in ER and had administration of narcan Continue monitoring - Current Meds Current Meds: Current Medications Generic Name Dose Route Start Last Admin Trade Name Freq PRN Reason Stop Dose Admin Atorvastatin Calcium 40 mg 01/28/22 21:00 01/30/22 20:48 Atorvastatin 40 Mg Tablet PO 40 mg QPM JOSE FRANCISCO Administration Baclofen 10 mg 01/28/22 22:00 01/31/22 05:05 Baclofen 10 Mg Tablet PO 10 mg TID JOSE FRANCISCO Administration Duloxetine HCl 60 mg 01/29/22 09:00 01/31/22 08:00 Duloxetine 30 Mg Capsule PO 60 mg DAILY JOSE FRANCISCO Administration Ceftriaxone Sodium 1 gm/ 100 mls @ 200 mls/hr 01/29/22 09:00 01/31/22 08:52 Sodium Chloride IV Infused DAILY JOSE FRANCISCO Infusion Multivitamins/Minerals 1 tab 01/30/22 08:00 01/31/22 08:00 Multivitamin W/Minerals Tablet PO 1 tab DAILYWM JOSE FRANCISCO Administration Polyethylene Glycol 17 gm 01/30/22 09:00 01/31/22 08:00 Polyethylene Glycol 3350 17 Gm Packet PO 17 gm DAILY JOSE FRANCISCO Administration Sodium Chloride 10 ml 01/29/22 01:00 01/31/22 08:00 Sodium Chloride Flush 0.9% 10 Ml Syringe IVP 10 ml 0100,0900,1700 JOSE FRANCISCO Administration - Lab Result Fish Bone Diagrams: 01/31/22 04:44 01/31/22 04:44 - Additional Planning My Orders: My Active Orders 01/30/22 15:15 Miscellaenous Nursing Order [RC] QSHIFT 01/31/22 11:10 COVID-19 [facility] Stat Subjective - Subjective Patient Reports: Feeling Better, Resting Comfortably Objective Vital Signs: Vital Signs - 24 hr 01/30/22 01/30/22 01/31/22 16:00 23:52 07:46 Temperature 36.6 C 36.6 C 36.9 C Heart Rate [ 75 72 75 Brachial] Respiratory 18 18 19 Rate Blood Pressure 122/61 [Left Brachial artery] Blood Pressure 116/59 L 138/71 H [Right Brachial artery] O2 Saturation 94 95 96 Oxygen O2 Source Nasal cannula Oxygen Flow Rate 6 I&O (Last 24 Hrs): Intake and Output Totals x24h 01/29/22 01/30/22 01/31/22 23:59 23:59 23:59 Intake Total 1780 1710 400 Output Total 550 775 350 Balance 1230 935 50 General: Alert HEENT: Mucous membr. moist/pink Neck: Supple, No JVD Neuro: Alert, Other (Has spastic paralysis of mostly her lower body, and has extreme weakness of her legs, moderate weakness of her arms.) Cardiovascular: Regular rate Respiratory: No respiratory distress Abdomen: Soft Extremities: No edema - Results Results: Laboratory Results WBC 13.5 x10^3/uL (4.8-10.8) H 01/31/22 04:44 RBC 4.28 10^6/uL (4.20-5.40) 01/31/22 04:44 Hgb 10.2 g/dL (12.0-16.0) L 01/31/22 04:44 Hct 35.0 % (37.0-47.0) L 01/31/22 04:44 MCV 81.8 fL (81.0-99.0) 01/31/22 04:44 MCH 23.8 pg (27.0-31.0) L 01/31/22 04:44 MCHC 29.1 g/dL (32.0-36.0) L 01/31/22 04:44 RDW 17.0 % (12.0-15.0) H 01/31/22 04:44 Plt Count 430 10^3/uL (130-450) 01/31/22 04:44 MPV 9.7 fL (7.9-10.8) 01/31/22 04:44 Neut # (Auto) 9.3 10^3/uL (1.5-6.6) H 01/31/22 04:44 Lymph # (Auto) 2.9 10^3/uL (1.5-3.5) 01/31/22 04:44 [place] # (Auto) 0.7 10^3/uL (0.0-1.0) 01/31/22 04:44 Eos # (Auto) 0.4 10^3/uL (0.0-0.7) 01/31/22 04:44 Baso # (Auto) 0.1 10^3/uL (0.0-0.1) 01/31/22 04:44 Absolute Nucleated RBC 0.00 x10^3/uL 01/31/22 04:44 Nucleated RBC % 0.0 /100WBC 01/31/22 04:44 Platelet Estimate NORMAL (130-450,000) (NORMAL) 01/28/22 15:24 Platelet Morphology PLATELET CLUMPING (NORMAL) 01/28/22 15:24 Sodium 139 mmol/L (135-145) 01/31/22 04:44 Potassium 3.7 mmol/L (3.5-5.0) 01/31/22 04:44 Chloride 99 mmol/L (101-111) L 01/31/22 04:44 Carbon Dioxide 32 mmol/L (21-32) 01/31/22 04:44 Anion Gap 8.0 (6-13) 01/31/22 04:44 BUN 16 mg/dL (6-20) 01/31/22 04:44 Creatinine 0.3 mg/dL (0.4-1.0) L 01/31/22 04:44 Estimated GFR (MDRD) 218 (>89) 01/31/22 04:44 Glucose 116 mg/dL (70-100) H 01/31/22 04:44 Calcium 8.6 mg/dL (8.5-10.3) 01/31/22 04:44 Magnesium 1.9 mg/dL (1.7-2.8) 01/28/22 15:24 Total Bilirubin 0.4 mg/dL (0.2-1.0) 01/28/22 15:24 AST 18 IU/L (10-42) 01/28/22 15:24 ALT 21 IU/L (10-60) 01/28/22 15:24 Alkaline Phosphatase 81 IU/L (42-121) 01/28/22 15:24 Total Protein 8.4 g/dL (6.7-8.2) H 01/28/22 15:24 Albumin 3.2 g/dL (3.2-5.5) 01/28/22 15:24 Globulin 5.2 g/dL (2.1-4.2) H 01/28/22 15:24 Albumin/Globulin Ratio 0.6 (1.0-2.2) L 01/28/22 15:24 Lipase 24 U/L (22-51) 01/28/22 15:24 Urine Color YELLOW 01/28/22 16:15 Urine Clarity HAZY (CLEAR) 01/28/22 16:15 Urine pH 7.5 PH (5.0-7.5) 01/28/22 16:15 Ur Specific [place] 1.010 (1.002-1.030) 01/28/22 16:15 Urine Protein NEGATIVE mg/dL (NEGATIVE) 01/28/22 16:15 Urine Glucose (UA) NEGATIVE mg/dL (NEGATIVE) 01/28/22 16:15 Urine Ketones NEGATIVE mg/dL (NEGATIVE) 01/28/22 16:15 Urine Occult Blood TRACE-INTA (NEGATIVE) 01/28/22 16:15 Urine Nitrite POSITIVE (NEGATIVE) H 01/28/22 16:15 Urine Bilirubin NEGATIVE (NEGATIVE) 01/28/22 16:15 Urine Urobilinogen 0.2 (NORMAL) E.U./dL (NORMAL) 01/28/22 16:15 Ur Leukocyte Esterase LARGE (NEGATIVE) H 01/28/22 16:15 Urine RBC 6-10 /HPF (0-5) H 01/28/22 16:15 Urine WBC >25 /HPF (0-5) H 01/28/22 16:15 Ur Squamous Epith Cells FEW Squamous (<= Few) 01/28/22 16:15 Urine Crystals 0-2 Triple Phosphate /LPF 01/28/22 16:15 Urine Bacteria Many /HPF (None Seen) H 01/28/22 16:15 Ur Microscopic Review INDICATED 01/28/22 16:15 Urine Culture Comments INDICATED 01/28/22 16:15 Nasal Adenovirus (PCR) NOT DETECTED 01/28/22 16:58 Nasal B. parapertussis DNA (PCR) NOT DETECTED 01/28/22 16:58 Nasal Coronavir 229E PCR NOT DETECTED 01/28/22 16:58 Nasal Coronavir HKU1 PCR NOT DETECTED 01/28/22 16:58 Nasal Coronavir NL63 PCR NOT DETECTED 01/28/22 16:58 Nasal Coronavir OC43 PCR NOT DETECTED 01/28/22 16:58 Nasal Enterovir/Rhinovir PCR NOT DETECTED 01/28/22 16:58 Nasal Influenza B PCR NOT DETECTED 01/28/22 16:58 Nasal Influenza A PCR NOT DETECTED 01/28/22 16:58 Nasal Parainfluen 1 PCR NOT DETECTED 01/28/22 16:58 Nasal Parainfluen 2 PCR NOT DETECTED 01/28/22 16:58 Nasal Parainfluen 3 PCR NOT DETECTED 01/28/22 16:58 Nasal Parainfluen 4 PCR NOT DETECTED 01/28/22 16:58 Nasal RSV (PCR) NOT DETECTED 01/28/22 16:58 Nasal B.pertussis DNA PCR NOT DETECTED 01/28/22 16:58 Nasal C.pneumoniae (PCR) NOT DETECTED 01/28/22 16:58 Morgan Human Metapneumo PCR NOT DETECTED 01/28/22 16:58 Nasal M.pneumoniae (PCR) NOT DETECTED 01/28/22 16:58 Nasal SARS-CoV-2 (PCR) NOT DETECTED 01/28/22 16:58 Ethyl Alcohol < 5.0 mg/dL 01/28/22 15:24 - Procedures Procedures: Procedures EXCISION OF DUODENUM, ENDO, DIAGN (05/20/21) EXCISION OF ESOPHAGOGASTRIC JUNCTION, ENDO, DIAGN (05/20/21) EXCISION OF ESOPHAGUS, ENDO, DIAGN (05/20/21) EXCISION OF STOMACH, ENDO, DIAGN (05/20/21) INSERTION OF INFUSION DEV INTO SUP VENA CAVA, PERC APPROACH (05/20/21) INSPECTION OF LOWER INTESTINAL TRACT, ENDO (05/04/18)
[2022-01-31] MEDS: ACETAMINOPHEN 325 MG TABLET PO PRN ×2 (15:42→20:59)
[2022-01-31] MEDS: ATORVASTATIN 40 MG TABLET PO SCH (20:59)
[2022-02-01] MEDS: BACLOFEN 10 MG TABLET PO SCH ×3 (05:35→20:55)
[2022-02-01 06:08] LABS: BASOPHILS # (AUTO) 0.1 10^3/uL (0.0-0.1); BASOPHILS % (AUTO) 0.8 %; EOSINOPHILS # (AUTO) 0.3 10^3/uL (0.0-0.7); EOSINOPHILS % (AUTO) 2.9 %; HCT - HEMATOCRIT 35.7 % (37.0-47.0); HGB - HEMOGLOBIN 10.7 g/dL (12.0-16.0); LYMPHOCYTES # (AUTO) 2.3 10^3/uL (1.5-3.5); LYMPHOCYTES % (AUTO) 19.3 %; MEAN CORPUSCULAR HEMOGLOBIN 24.2 pg (27.0-31.0); MEAN CORPUSCULAR VOLUME 80.8 fL (81.0-99.0); MEAN PLATELET VOLUME 9.2 fL (7.9-10.8); MONOCYTES # (AUTO) 0.7 10^3/uL (0.0-1.0); MONOCYTES % (AUTO) 6.2 %; NEUTROPHILS # (AUTO) 8.2 10^3/uL (1.5-6.6); NEUTROPHILS % (AUTO) 70.4 %; PLT - PLATELET COUNT 418 10^3/uL (130-450); RED BLOOD COUNT 4.42 10^6/uL (4.20-5.40); RED CELL DISTRIBUTION WIDTH 16.9 % (12.0-15.0); WHITE BLOOD COUNT 11.7 x10^3/uL (4.8-10.8)
[2022-02-01 06:18] LABS: CALCIUM 8.8 mg/dL (8.5-10.3); CREATININE 0.3 mg/dL (0.4-1.0); POTASSIUM 3.8 mmol/L (3.5-5.0)
[2022-02-01] MEDS: SODIUM CHLORIDE FLUSH 0.9% 10 ML SYRINGE IVP SCH ×3 (08:58→23:46)
[2022-02-01] MEDS: cefTRIAXone 1 GM in SODIUM CHLORIDE 0.9% MINIBAG 100 ML IV SCH (08:58)
[2022-02-01] MEDS: MULTIVITAMIN W/MINERALS TABLET PO SCH (08:58)
[2022-02-01] MEDS: DULoxetine 30 MG CAPSULE PO SCH (08:59)
[2022-02-01] MEDS: polyethylene glycoL 3350 17 GM PACKET PO SCH (09:00)
--- NOTE | 2022-02-01 17:56 | PROVIDER PROGRESS NOTE ---
Assessment/Plan - Problem List (1) Urinary tract infection Qualifiers: Assessment/Plan: Her urine culture has grown 2 species: Klebsiella oxytocin and Providencia stuartii. The Providencia bacteria is only sensitive to cefepime, ceftriaxone and ertapenem. Her current empiric IV ceftriaxone has improved her white blood count, her altered mental status and overall clinical condition. The Good catheter was changed. I reviewed her culture and sens results with our pharmacist. Options are to take a chance and switch to an oral third-generation cephalosporin to complete treatment for this UTI, or to continue with IV ceftriaxone 1 g daily for now 9 more days, for 14-day total course (which is the preferred management). Will request that she go to a SNF for those addnl days of daily IV ceftriaxone. Discussed with our [facility] nurse and [facility]. Two days ago (Thu), I spoke to the MD from [facility] who administers her [facility] and she waS approved to go to SNF, but her facility does NOT take patients on Sat or Sun, so [facility] (2) Chronic indwelling Good Conclusion/Plan: This was the likely cause of her UTI Good has been changed (3) Spastic paraplegia secondary to multiple sclerosis Conclusion/Plan: On baclofen 10mg tid (4) MS Conclusion/Plan: As per Hx. She had PT eval and is entirely dependant on caregivers, can no longer help with her own transfers. (5) Acute respiratory failure with hypoxia Assessment/Plan: Resolved. CXR was normal at admission. Suspected to be secondary to chronic opiate use and muscle weakness from MS. Patient had a fentanyl patch on. It was removed. Narcan given and helped. Her suppl O2 has been weaned down to room air but when she is sleepy and hypopnieic she needs 1L O2 Will order O2 sats OK at 88% and above. (6) Metabolic encephalopathy Conclusion/Plan: Resolved. It was Likely due to the new UTI and from hypoxia and fentany. We removed fentanyl patch in ER and had administration of narcan She seems to have a very poor memory however. Continue monitoring - Current Meds Current Meds: Current Medications Generic Name Dose Route Start Last Admin Trade Name Freq PRN Reason Stop Dose Admin Acetaminophen 650 mg 01/28/22 20:05 01/31/22 20:59 Acetaminophen 325 Mg Tablet PO 650 mg Q4HR PRN Administration Pain 1 to 4, or Fever Atorvastatin Calcium 40 mg 01/28/22 21:00 01/31/22 20:59 Atorvastatin 40 Mg Tablet PO 40 mg QPM JOSE FRANCISCO Administration Baclofen 10 mg 01/28/22 22:00 02/01/22 14:38 Baclofen 10 Mg Tablet PO 10 mg TID JOSE FRANCISCO Administration Duloxetine HCl 60 mg 01/29/22 09:00 02/01/22 08:59 Duloxetine 30 Mg Capsule PO 60 mg DAILY JOSE FRANCISCO Administration Ceftriaxone Sodium 1 gm/ 100 mls @ 200 mls/hr 01/29/22 09:00 02/01/22 09:30 Sodium Chloride IV Infused DAILY JOSE FRANCISCO Infusion Multivitamins/Minerals 1 tab 01/30/22 08:00 02/01/22 08:58 Multivitamin W/Minerals Tablet PO 1 tab DAILYWM JOSE FRANCISCO Administration Polyethylene Glycol 17 gm 01/30/22 09:00 02/01/22 09:00 Polyethylene Glycol 3350 17 Gm Packet PO 17 gm DAILY JOSE FRANCISCO Administration Sodium Chloride 10 ml 01/29/22 01:00 02/01/22 16:20 Sodium Chloride Flush 0.9% 10 Ml Syringe IVP 10 ml 0100,0900,1700 JOSE FRANCISCO Administration - Lab Result Fish Bone Diagrams: 02/02/22 06:20 02/02/22 06:20 - Additional Planning My Orders: My Active Orders 02/02/22 [facility] [facility] Routine Subjective - Subjective Patient Reports: Resting Comfortably, No Complaints Objective Vital Signs: Vital Signs - 24 hr 01/31/22 02/01/22 02/01/22 22:47 08:07 16:00 Temperature 36.6 C 36.5 C 36.8 C Heart Rate [ 71 71 79 Brachial] Respiratory 15 20 19 Rate Blood Pressure 126/60 143/65 H 139/70 H [Right Brachial artery] O2 Saturation 97 94 95 Oxygen O2 Source Nasal cannula Oxygen Flow Rate 6 I&O (Last 24 Hrs): Intake and Output Totals x24h 01/30/22 01/31/22 02/01/22 23:59 23:59 23:59 Intake Total 1710 1190 1000 Output Total 775 900 625 Balance 935 290 375 General: Alert, Other (Oriented to place and self, not time) HEENT: Mucous membr. moist/pink, Other (Poor dentition) Neck: Supple, Other (Obese and cannot eval JVP) Neuro: Alert, Other (Paraplegia from upper chest down) Cardiovascular: Regular rate Respiratory: No respiratory distress Abdomen: Soft Extremities: Other (Trace edema) - Results Results: Laboratory Results WBC 11.7 x10^3/uL (4.8-10.8) H 02/01/22 05:57 RBC 4.42 10^6/uL (4.20-5.40) 02/01/22 05:57 Hgb 10.7 g/dL (12.0-16.0) L 02/01/22 05:57 Hct 35.7 % (37.0-47.0) L 02/01/22 05:57 MCV 80.8 fL (81.0-99.0) L 02/01/22 05:57 MCH 24.2 pg (27.0-31.0) L 02/01/22 05:57 MCHC 30.0 g/dL (32.0-36.0) L 02/01/22 05:57 RDW 16.9 % (12.0-15.0) H 02/01/22 05:57 Plt Count 418 10^3/uL (130-450) 02/01/22 05:57 MPV 9.2 fL (7.9-10.8) 02/01/22 05:57 Neut # (Auto) 8.2 10^3/uL (1.5-6.6) H 02/01/22 05:57 Lymph # (Auto) 2.3 10^3/uL (1.5-3.5) 02/01/22 05:57 [place] # (Auto) 0.7 10^3/uL (0.0-1.0) 02/01/22 05:57 Eos # (Auto) 0.3 10^3/uL (0.0-0.7) 02/01/22 05:57 Baso # (Auto) 0.1 10^3/uL (0.0-0.1) 02/01/22 05:57 Absolute Nucleated RBC 0.00 x10^3/uL 02/01/22 05:57 Nucleated RBC % 0.0 /100WBC 02/01/22 05:57 Platelet Estimate NORMAL (130-450,000) (NORMAL) 01/28/22 15:24 Platelet Morphology PLATELET CLUMPING (NORMAL) 01/28/22 15:24 Sodium 143 mmol/L (135-145) 02/01/22 05:57 Potassium 3.8 mmol/L (3.5-5.0) 02/01/22 05:57 Chloride 105 mmol/L (101-111) 02/01/22 05:57 Carbon Dioxide 30 mmol/L (21-32) 02/01/22 05:57 Anion Gap 8.0 (6-13) 02/01/22 05:57 BUN 14 mg/dL (6-20) 02/01/22 05:57 Creatinine 0.3 mg/dL (0.4-1.0) L 02/01/22 05:57 Estimated GFR (MDRD) 218 (>89) 02/01/22 05:57 Glucose 116 mg/dL (70-100) H 02/01/22 05:57 Calcium 8.8 mg/dL (8.5-10.3) 02/01/22 05:57 Magnesium 1.9 mg/dL (1.7-2.8) 01/28/22 15:24 Total Bilirubin 0.4 mg/dL (0.2-1.0) 01/28/22 15:24 AST 18 IU/L (10-42) 01/28/22 15:24 ALT 21 IU/L (10-60) 01/28/22 15:24 Alkaline Phosphatase 81 IU/L (42-121) 01/28/22 15:24 Total Protein 8.4 g/dL (6.7-8.2) H 01/28/22 15:24 Albumin 3.2 g/dL (3.2-5.5) 01/28/22 15:24 Globulin 5.2 g/dL (2.1-4.2) H 01/28/22 15:24 Albumin/Globulin Ratio 0.6 (1.0-2.2) L 01/28/22 15:24 Lipase 24 U/L (22-51) 01/28/22 15:24 Urine Color YELLOW 01/28/22 16:15 Urine Clarity HAZY (CLEAR) 01/28/22 16:15 Urine pH 7.5 PH (5.0-7.5) 01/28/22 16:15 Ur Specific [place] 1.010 (1.002-1.030) 01/28/22 16:15 Urine Protein NEGATIVE mg/dL (NEGATIVE) 01/28/22 16:15 Urine Glucose (UA) NEGATIVE mg/dL (NEGATIVE) 01/28/22 16:15 Urine Ketones NEGATIVE mg/dL (NEGATIVE) 01/28/22 16:15 Urine Occult Blood TRACE-INTA (NEGATIVE) 01/28/22 16:15 Urine Nitrite POSITIVE (NEGATIVE) H 01/28/22 16:15 Urine Bilirubin NEGATIVE (NEGATIVE) 01/28/22 16:15 Urine Urobilinogen 0.2 (NORMAL) E.U./dL (NORMAL) 01/28/22 16:15 Ur Leukocyte Esterase LARGE (NEGATIVE) H 01/28/22 16:15 Urine RBC 6-10 /HPF (0-5) H 01/28/22 16:15 Urine WBC >25 /HPF (0-5) H 01/28/22 16:15 Ur Squamous Epith Cells FEW Squamous (<= Few) 01/28/22 16:15 Urine Crystals 0-2 Triple Phosphate /LPF 01/28/22 16:15 Urine Bacteria Many /HPF (None Seen) H 01/28/22 16:15 Ur Microscopic Review INDICATED 01/28/22 16:15 Urine Culture Comments INDICATED 01/28/22 16:15 Nasal Adenovirus (PCR) NOT DETECTED 01/28/22 16:58 Nasal B. parapertussis DNA (PCR) NOT DETECTED 01/28/22 16:58 Nasal Coronavir 229E PCR NOT DETECTED 01/28/22 16:58 Nasal Coronavir HKU1 PCR NOT DETECTED 01/28/22 16:58 Nasal Coronavir NL63 PCR NOT DETECTED 01/28/22 16:58 Nasal Coronavir OC43 PCR NOT DETECTED 01/28/22 16:58 Nasal Enterovir/Rhinovir PCR NOT DETECTED 01/28/22 16:58 Nasal Influenza B PCR NOT DETECTED 01/28/22 16:58 Nasal Influenza A PCR NOT DETECTED 01/28/22 16:58 Nasal Parainfluen 1 PCR NOT DETECTED 01/28/22 16:58 Nasal Parainfluen 2 PCR NOT DETECTED 01/28/22 16:58 Nasal Parainfluen 3 PCR NOT DETECTED 01/28/22 16:58 Nasal Parainfluen 4 PCR NOT DETECTED 01/28/22 16:58 Nasal RSV (PCR) NOT DETECTED 01/28/22 16:58 Nasal B.pertussis DNA PCR NOT DETECTED 01/28/22 16:58 Nasal C.pneumoniae (PCR) NOT DETECTED 01/28/22 16:58 Morgan Human Metapneumo PCR NOT DETECTED 01/28/22 16:58 Nasal M.pneumoniae (PCR) NOT DETECTED 01/28/22 16:58 Nasal SARS-CoV-2 (PCR) NOT DETECTED 01/28/22 16:58 Ethyl Alcohol < 5.0 mg/dL 01/28/22 15:24 SARS-CoV-2 (PCR) NOT DETECTED 01/31/22 11:10 - Procedures Procedures: Procedures EXCISION OF DUODENUM, ENDO, DIAGN (05/20/21) EXCISION OF ESOPHAGOGASTRIC JUNCTION, ENDO, DIAGN (05/20/21) EXCISION OF ESOPHAGUS, ENDO, DIAGN (05/20/21) EXCISION OF STOMACH, ENDO, DIAGN (05/20/21) INSERTION OF INFUSION DEV INTO SUP VENA CAVA, PERC APPROACH (05/20/21) INSPECTION OF LOWER INTESTINAL TRACT, ENDO (05/04/18)
[2022-02-01] MEDS: ATORVASTATIN 40 MG TABLET PO SCH (20:55)
[2022-02-02] MEDS: BACLOFEN 10 MG TABLET PO SCH ×3 (05:07→21:09)
[2022-02-02 06:56] LABS: BASOPHILS # (AUTO) 0.1 10^3/uL (0.0-0.1); BASOPHILS % (AUTO) 0.6 %; EOSINOPHILS # (AUTO) 0.5 10^3/uL (0.0-0.7); EOSINOPHILS % (AUTO) 3.3 %; HCT - HEMATOCRIT 34.6 % (37.0-47.0); HGB - HEMOGLOBIN 10.4 g/dL (12.0-16.0); LYMPHOCYTES # (AUTO) 3.3 10^3/uL (1.5-3.5); LYMPHOCYTES % (AUTO) 23.2 %; MEAN CORPUSCULAR HEMOGLOBIN 24.4 pg (27.0-31.0); MEAN CORPUSCULAR HGB CONC 30.1 g/dL (32.0-36.0); MEAN CORPUSCULAR VOLUME 81.2 fL (81.0-99.0); MEAN PLATELET VOLUME 9.7 fL (7.9-10.8); MONOCYTES # (AUTO) 0.8 10^3/uL (0.0-1.0); MONOCYTES % (AUTO) 5.5 %; NEUTROPHILS # (AUTO) 9.6 10^3/uL (1.5-6.6); NEUTROPHILS % (AUTO) 67.1 %; PLT - PLATELET COUNT 409 10^3/uL (130-450); RED BLOOD COUNT 4.26 10^6/uL (4.20-5.40); RED CELL DISTRIBUTION WIDTH 17.2 % (12.0-15.0); WHITE BLOOD COUNT 14.4 x10^3/uL (4.8-10.8)
[2022-02-02 07:09] LABS: BUN - BLOOD UREA NITROGEN 15 mg/dL (6-20); CALCIUM 8.7 mg/dL (8.5-10.3); CARBON DIOXIDE - CO2 32 mmol/L (21-32); CHLORIDE 102 mmol/L (101-111); GLUCOSE 102 mg/dL (70-100); POTASSIUM 3.7 mmol/L (3.5-5.0); SODIUM 141 mmol/L (135-145)
[2022-02-02 07:10] LABS: CREATININE < 0.3 mg/dL (0.4-1.0)
[2022-02-02] MEDS: MULTIVITAMIN W/MINERALS TABLET PO SCH (08:30)
[2022-02-02] MEDS: DULoxetine 30 MG CAPSULE PO SCH (09:40)
[2022-02-02] MEDS: SODIUM CHLORIDE FLUSH 0.9% 10 ML SYRINGE IVP SCH ×2 (09:40→17:35)
[2022-02-02] MEDS: ACETAMINOPHEN 325 MG TABLET PO PRN ×2 (09:40→14:29)
[2022-02-02] MEDS: cefTRIAXone 1 GM in SODIUM CHLORIDE 0.9% MINIBAG 100 ML IV SCH (09:40)
[2022-02-02] MEDS: polyethylene glycoL 3350 17 GM PACKET PO SCH (09:41)
[2022-02-02] MEDS: ATORVASTATIN 40 MG TABLET PO SCH (21:09)
[2022-02-03] MEDS: SODIUM CHLORIDE FLUSH 0.9% 10 ML SYRINGE IVP SCH ×2 (00:42→08:02)
[2022-02-03] MEDS: BACLOFEN 10 MG TABLET PO SCH ×2 (06:02→15:51)
[2022-02-03] MEDS: MULTIVITAMIN W/MINERALS TABLET PO SCH (07:57)
[2022-02-03] MEDS: DULoxetine 30 MG CAPSULE PO SCH (08:01)
[2022-02-03] MEDS: cefTRIAXone 1 GM in SODIUM CHLORIDE 0.9% MINIBAG 100 ML IV SCH (08:02)
--- NOTE | 2022-02-03 08:02 | Discharge Plan ---
"Discharge Plan for SNF / [facility] - Discharge Plan And Transition Orders Problem Reviewed?: Yes Disposition: [facility] DC/Xfer Condition: Stable Allergies and Adverse Reactions: Allergies Allergy/AdvReac Type Severity Reaction Status Date / Time nystatin Allergy Unknown Verified 09/26/21 16:25 Penicillins Allergy Unknown Verified 09/26/21 16:25 Health Concerns: Patient was admitted with altered mental status/somnolence. This was found to be due to narcotic use (fentanyl patch) and an infection. We found she has a chronic indwelling Good-induced UTI. She is being discharged to SNF to complete 8 more days of IV antibiotics with Ceftriaxone given daily. The authorization is to give antibiotics through 02/11/2022. Following that, she may be returned to her usual status as a resident at the facility. Please resume all her other usual pre-hospital medications and management. Plan of Treatment: As above. Care Goals: Improvement in symptoms and stabilization are the goals. Assessment: These orders are written for SNF. - SNF / HALFWAY Transition Orders Admit to (Facility): [facility] Under the care of (Name): Staff Provider Discharge Diagnosis: (1) Urinary tract infection The urine culture grew Klebsiella oxytocin and Providencia stuartii. Plan is to give IV ceftriaxone 1 g daily through 02/11/2022, for 14-day total course of iv antibiotics. (2) Chronic indwelling Good Her Good has been changed (3) Spastic paraplegia secondary to multiple sclerosis (4) MS (5) Acute respiratory failure with hypoxia Please limit the use of narcotics which make her hypopneic and desaturate. (6) Metabolic encephalopathy Resolved. It was Likely due to the new UTI and from hypoxia and fentanyl. Medicare Certification Statement: I certify that Post Hospital retirement care is medically necessary on a continuing basis for any of the conditions for which she/he is receiving care during hospitalization. Notify PCP of admission and forward orders to primary provider for signature. Weight on admission and: Monthly Other Notification Orders: Call PCP immediately if patient develops dyspnea, chest pain/tightness or edema. House Bowel Program: Yes Additional Bowel Program Orders: If no BM after 2 days, nurse may give M.O.M. 30ml PO PRN and/or ducolax Supp 1 SD and/or JAIR 250mg P.O., and/or senna 1-2 tabs PO. On day 3 nurse may give repeat above order until residents constipation is resolved. Annual Influenza Vaccine (between Mar 20 and October 17): Yes Two-step PPD per [facility] [phone] or approved exception documents: Yes Treatments & Other Orders: Administer IV Ceftriaxone daily through 02/11/2022 Medication Orders: PLEASE REFER TO THE DISCHARGE MEDICATION LIST. Insulin Orders?: No - Medications New Prescriptions: cefTRIAXone [Rocephin 1 gram] 1 gm IV DAILY #8 vial - Diet Type: Geriatric Texture: Puree Liquids: Nash thick May have monthly special meal: Yes - Therapies | Activity Activity: Activity as Tolerated Weight Bearing: No Weight Follow Up: See PCP for a hospital follow-up visit in 2-3 weeks."
[2022-02-03] MEDS: polyethylene glycoL 3350 17 GM PACKET PO SCH (08:03)
--- NOTE | 2022-02-03 08:33 | PROVIDER PROGRESS NOTE ---
Assessment/Plan - Problem List (1) Urinary tract infection Qualifiers: Assessment/Plan: Her urine culture has grown 2 species: Klebsiella oxytocin and Providencia stuartii. The Providencia bacteria is only sensitive to cefepime, ceftriaxone and ertapenem. Her current empiric IV ceftriaxone has improved her white blood count, her altered mental status and overall clinical condition. The Good catheter has been changed. I reviewed these culture and sens results with our pharmacist (Tiffanie). Options are to take a chance and switch to an oral third-generation cephalosporin to complete treatment for this UTI, or to continue with IV ceftriaxone 1 g daily for 10 more days for 14-day course (which is the preferred management). Will request that she go to a SNF for 10 days of daily IV ceftriaxone. Discussed with our [facility] nurse and UM. Last evening, I spoke to the MD from [facility] who administers her [facility] and she was approved to go to SNF, but her facility does NOT take patients on Sat or Sun (today is Sat), so a [facility] is planned (2) Chronic indwelling Good Conclusion/Plan: This was the likely cause of her UTI Good has been changed (3) Spastic paraplegia secondary to multiple sclerosis Conclusion/Plan: On baclofen 10mg tid (4) MS Conclusion/Plan: As per Hx. She had PT eval and is entirely dependant obn caregivers, can no longer help with her own transfers. (5) Acute respiratory failure with hypoxia Assessment/Plan: Resolved. CXR was normal at admnission. Suspected to be secondary to chronic opiate use and muscle weakness from MS. Patient had a fentanyl patch on. It was removed. Narcan given and helped. Her suppl O2 has been weaned down to room air. (6) Metabolic encephalopathy Conclusion/Plan: Resolved. It was Likely due to the new UTI and from hypoxia and fentany. We removed fentanyl patch in ER and had administration of narcan Continue monitoring - Current Meds Current Meds: Current Medications Generic Name Dose Route Start Last Admin Trade Name Freq PRN Reason Stop Dose Admin Acetaminophen 650 mg 01/28/22 20:05 02/02/22 14:29 Acetaminophen 325 Mg Tablet PO 650 mg Q4HR PRN Administration Pain 1 to 4, or Fever Atorvastatin Calcium 40 mg 01/28/22 21:00 02/02/22 21:09 Atorvastatin 40 Mg Tablet PO 40 mg QPM JOSE FRANCISCO Administration Baclofen 10 mg 01/28/22 22:00 02/03/22 06:02 Baclofen 10 Mg Tablet PO 10 mg TID JOSE FRANCISCO Administration Duloxetine HCl 60 mg 01/29/22 09:00 02/03/22 08:01 Duloxetine 30 Mg Capsule PO 60 mg DAILY JOSE FRANCISCO Administration Ceftriaxone Sodium 1 gm/ 100 mls @ 200 mls/hr 01/29/22 09:00 02/03/22 08:02 Sodium Chloride IV 200 mls/hr DAILY JOSE FRANCISCO Administration Multivitamins/Minerals 1 tab 01/30/22 08:00 02/03/22 07:57 Multivitamin W/Minerals Tablet PO 1 tab DAILYWM JOSE FRANCISCO Administration Polyethylene Glycol 17 gm 01/30/22 09:00 02/03/22 08:03 Polyethylene Glycol 3350 17 Gm Packet PO Not Given DAILY JOSE FRANCISCO Sodium Chloride 10 ml 01/29/22 01:00 02/03/22 08:02 Sodium Chloride Flush 0.9% 10 Ml Syringe IVP 10 ml 0100,0900,1700 JOSE FRANCISCO Administration - Lab Result Fish Bone Diagrams: 02/02/22 06:20 02/02/22 06:20 - Additional Planning My Orders: My Active Orders 02/03/22 08:16 Discharge [RC] .ONCE Initiate Discharge Checklist [RC] .ONCE Subjective - Subjective Patient Reports: Feeling Better, Resting Comfortably, No Complaints Nursing Reports: Other (Poor memory) Objective Vital Signs: Vital Signs - 24 hr 02/02/22 02/02/22 02/03/22 14:30 15:32 00:52 Temperature 36.7 C 36.8 C 36.7 C Heart Rate [ 80 82 70 Brachial] Respiratory 18 16 Rate Blood Pressure [Left Brachial artery] Blood Pressure 133/68 H 131/66 H [Right Brachial artery] O2 Saturation 94 95 94 02/03/22 07:56 Temperature 36.8 C Heart Rate [ 78 Brachial] Respiratory 18 Rate Blood Pressure 146/80 H [Left Brachial artery] Blood Pressure [Right Brachial artery] O2 Saturation 92 Oxygen O2 Source Room air Oxygen Flow Rate 6 I&O (Last 24 Hrs): Intake and Output Totals x24h 02/01/22 02/02/22 02/03/22 23:59 23:59 23:59 Intake Total 1100 1735 250 Output Total 825 1375 525 Balance 275 360 -275 General: Alert, Oriented x3 HEENT: Mucous membr. moist/pink, Other (Poorly kempt) Neck: Supple Neuro: Alert, Other (Paraplegic from mid-chest down) Cardiovascular: Regular rate Respiratory: No respiratory distress Abdomen: Soft Extremities: Other (1+ edema) - Results Results: Laboratory Results WBC 14.4 x10^3/uL (4.8-10.8) H 02/02/22 06:20 RBC 4.26 10^6/uL (4.20-5.40) 02/02/22 06:20 Hgb 10.4 g/dL (12.0-16.0) L 02/02/22 06:20 Hct 34.6 % (37.0-47.0) L 02/02/22 06:20 MCV 81.2 fL (81.0-99.0) 02/02/22 06:20 MCH 24.4 pg (27.0-31.0) L 02/02/22 06:20 MCHC 30.1 g/dL (32.0-36.0) L 02/02/22 06:20 RDW 17.2 % (12.0-15.0) H 02/02/22 06:20 Plt Count 409 10^3/uL (130-450) 02/02/22 06:20 MPV 9.7 fL (7.9-10.8) 02/02/22 06:20 Neut # (Auto) 9.6 10^3/uL (1.5-6.6) H 02/02/22 06:20 Lymph # (Auto) 3.3 10^3/uL (1.5-3.5) 02/02/22 06:20 [place] # (Auto) 0.8 10^3/uL (0.0-1.0) 02/02/22 06:20 Eos # (Auto) 0.5 10^3/uL (0.0-0.7) 02/02/22 06:20 Baso # (Auto) 0.1 10^3/uL (0.0-0.1) 02/02/22 06:20 Absolute Nucleated RBC 0.00 x10^3/uL 02/02/22 06:20 Nucleated RBC % 0.0 /100WBC 02/02/22 06:20 Platelet Estimate NORMAL (130-450,000) (NORMAL) 01/28/22 15:24 Platelet Morphology PLATELET CLUMPING (NORMAL) 01/28/22 15:24 Sodium 141 mmol/L (135-145) 02/02/22 06:20 Potassium 3.7 mmol/L (3.5-5.0) 02/02/22 06:20 Chloride 102 mmol/L (101-111) 02/02/22 06:20 Carbon Dioxide 32 mmol/L (21-32) 02/02/22 06:20 Anion Gap 7.0 (6-13) 02/02/22 06:20 BUN 15 mg/dL (6-20) 02/02/22 06:20 Creatinine < 0.3 mg/dL (0.4-1.0) L 02/02/22 06:20 Estimated GFR (MDRD) Not Reportable 02/02/22 06:20 Glucose 102 mg/dL (70-100) H 02/02/22 06:20 Calcium 8.7 mg/dL (8.5-10.3) 02/02/22 06:20 Magnesium 1.9 mg/dL (1.7-2.8) 01/28/22 15:24 Total Bilirubin 0.4 mg/dL (0.2-1.0) 01/28/22 15:24 AST 18 IU/L (10-42) 01/28/22 15:24 ALT 21 IU/L (10-60) 01/28/22 15:24 Alkaline Phosphatase 81 IU/L (42-121) 01/28/22 15:24 Total Protein 8.4 g/dL (6.7-8.2) H 01/28/22 15:24 Albumin 3.2 g/dL (3.2-5.5) 01/28/22 15:24 Globulin 5.2 g/dL (2.1-4.2) H 01/28/22 15:24 Albumin/Globulin Ratio 0.6 (1.0-2.2) L 01/28/22 15:24 Lipase 24 U/L (22-51) 01/28/22 15:24 Urine Color YELLOW 01/28/22 16:15 Urine Clarity HAZY (CLEAR) 01/28/22 16:15 Urine pH 7.5 PH (5.0-7.5) 01/28/22 16:15 Ur Specific [place] 1.010 (1.002-1.030) 01/28/22 16:15 Urine Protein NEGATIVE mg/dL (NEGATIVE) 01/28/22 16:15 Urine Glucose (UA) NEGATIVE mg/dL (NEGATIVE) 01/28/22 16:15 Urine Ketones NEGATIVE mg/dL (NEGATIVE) 01/28/22 16:15 Urine Occult Blood TRACE-INTA (NEGATIVE) 01/28/22 16:15 Urine Nitrite POSITIVE (NEGATIVE) H 01/28/22 16:15 Urine Bilirubin NEGATIVE (NEGATIVE) 01/28/22 16:15 Urine Urobilinogen 0.2 (NORMAL) E.U./dL (NORMAL) 01/28/22 16:15 Ur Leukocyte Esterase LARGE (NEGATIVE) H 01/28/22 16:15 Urine RBC 6-10 /HPF (0-5) H 01/28/22 16:15 Urine WBC >25 /HPF (0-5) H 01/28/22 16:15 Ur Squamous Epith Cells FEW Squamous (<= Few) 01/28/22 16:15 Urine Crystals 0-2 Triple Phosphate /LPF 01/28/22 16:15 Urine Bacteria Many /HPF (None Seen) H 01/28/22 16:15 Ur Microscopic Review INDICATED 01/28/22 16:15 Urine Culture Comments INDICATED 01/28/22 16:15 Nasal Adenovirus (PCR) NOT DETECTED 01/28/22 16:58 Nasal B. parapertussis DNA (PCR) NOT DETECTED 01/28/22 16:58 Nasal Coronavir 229E PCR NOT DETECTED 01/28/22 16:58 Nasal Coronavir HKU1 PCR NOT DETECTED 01/28/22 16:58 Nasal Coronavir NL63 PCR NOT DETECTED 01/28/22 16:58 Nasal Coronavir OC43 PCR NOT DETECTED 01/28/22 16:58 Nasal Enterovir/Rhinovir PCR NOT DETECTED 01/28/22 16:58 Nasal Influenza B PCR NOT DETECTED 01/28/22 16:58 Nasal Influenza A PCR NOT DETECTED 01/28/22 16:58 Nasal Parainfluen 1 PCR NOT DETECTED 01/28/22 16:58 Nasal Parainfluen 2 PCR NOT DETECTED 01/28/22 16:58 Nasal Parainfluen 3 PCR NOT DETECTED 01/28/22 16:58 Nasal Parainfluen 4 PCR NOT DETECTED 01/28/22 16:58 Nasal RSV (PCR) NOT DETECTED 01/28/22 16:58 Nasal B.pertussis DNA PCR NOT DETECTED 01/28/22 16:58 Nasal C.pneumoniae (PCR) NOT DETECTED 01/28/22 16:58 Morgan Human Metapneumo PCR NOT DETECTED 01/28/22 16:58 Nasal M.pneumoniae (PCR) NOT DETECTED 01/28/22 16:58 Nasal SARS-CoV-2 (PCR) NOT DETECTED 01/28/22 16:58 Ethyl Alcohol < 5.0 mg/dL 01/28/22 15:24 SARS-CoV-2 (PCR) NOT DETECTED 02/02/22 12:50 - Procedures Procedures: Procedures EXCISION OF DUODENUM, ENDO, DIAGN (05/20/21) EXCISION OF ESOPHAGOGASTRIC JUNCTION, ENDO, DIAGN (05/20/21) EXCISION OF ESOPHAGUS, ENDO, DIAGN (05/20/21) EXCISION OF STOMACH, ENDO, DIAGN (05/20/21) INSERTION OF INFUSION DEV INTO SUP VENA CAVA, PERC APPROACH (05/20/21) INSPECTION OF LOWER INTESTINAL TRACT, ENDO (05/04/18)
--- NOTE | 2022-02-03 08:52 | DISCHARGE SUMMARY ---
Discharge Summary Admit Date: 01/28/22 Discharge Date: 02/03/22 Discharging Provider: Dr Aniya Corrigan Primary Care Provider: [facility] Staff Provider Condition at Discharge: Stable Discharge Disposition: SNF DC/Xfer Discharge Facility Name: [facility] History of Present Illness: From the admission H&P of Dr. Emilia Cheemau: 71-year-old female with history of MS with spastic paraplegia and who is mostly wheelchair-bound who presents from [facility] today with altered mental status. She was noted to have a fentanyl patch on. Her oxygen saturation was 80% on room air. She was given Narcan and placed on supplemental oxygen. In the ED work-up included CBC which showed a white blood cell count of 13. Chest x-ray and CT of the brain were normal. The urine analysis was strongly indicative of a UTI. She was presented for admission for continued monitoring and further treatment. At bedside she is resting comfortably. She readily responds to verbal stimuli but is not able to give any significant or reliable history. She denies chest pain, dyspnea, fever or chills. She reported lower abdominal pain. She is a DNR. - HOSPITAL COURSE Hospital Course: (1) Urinary tract infection She was put on empiric IV ceftriaxone. The Good catheter was changed. Her urine culture grew 2 species: Klebsiella oxytocin and Providencia stuartii. The Providencia bacteria was only sensitive to cefepime, ceftriaxone and ertapenem. The empiric IV ceftriaxone had improved her white blood count, her altered mental status and overall clinical condition. Options were to take a chance and switch to an oral third-generation cephalosporin to complete treatment for this UTI, or to continue with IV ceftriaxone 1 g daily for a 14-day total course. The iv antibiotic was the preferred management. She was deemed stable for [facility] on the afternoon of Thu01/31/22, but we needed insurance approval for her to go to a SNF for those additional days of daily IV ceftriaxone. On Thu evening at 1700, I received a call from the authorizing MD from [facility], who administers her [facility], and she was approved to go to SNF and receive daily iv Ceft riaxone through 02/11/22. However, her facility does not take patients on Sat or Sun, so she remained here on Sat 02/01 and Sun 02/02 and was discharged on a 02/03/22. (2) Chronic indwelling Good This was the likely cause of her UTI. Good was changed (3) Spastic paraplegia secondary to multiple sclerosis She is on baclofen 10mg tid (4) MS As per Hx. She lives at [facility] since [facility]. She had PT evaluate her here, and is entirely dependant on caregivers, can no longer help with her own transfers, a [place] lift is needed. She was kept on a pureed diet with mildly thickened liquids. (5) Acute respiratory failure with hypoxia Resolved. Her CXR was normal at admission. We suspected this to be secondary to chronic opiate use and muscle weakness from MS. Patient had a fentanyl patch on. It was removed ion the ED and Narcan was given which helped. Her suppl O2 was weaned down to room air but when she is sleepy and hypopnieic she needs brief supplemental O2. (6) Metabolic encephalopathy This resolved. It was likely due to the new UTI and from hypoxia and fentany. We removed fentanyl patch in ER and had administration of narcan. She seems to have a very poor memory however. - ALLERGIES Allergies/Adverse Reactions: Allergies Allergy/AdvReac Type Severity Reaction Status Date / Time nystatin Allergy Unknown Verified 09/26/21 16:25 Penicillins Allergy Unknown Verified 09/26/21 16:25 - MEDICATIONS Home Medications: Ambulatory Orders Medication Instructions Recorded Confirmed Cholecalciferol (Vitamin D3) 2,000 unit PO DAILY 01/28/18 01/28/22 [Vitamin D3] Calcium Carbonate [Tums (Calcium 1,000 mg PO Q4HR PRN 11/09/18 01/28/22 Carbonate 500mg)] DULoxetine [Cymbalta] 60 mg PO DAILY 11/09/18 01/28/22 Lovastatin 10 mg PO QPM 11/09/18 01/28/22 Naloxone HCl 0.1 ml SLY PRN PRN 11/09/18 01/28/22 Sennosides [Senna Lax] 8.6 mg PO BID PRN 06/07/19 01/28/22 Albuterol Sulf [Ventolin Hfa 2 puffs INH Q4H PRN 08/23/20 01/28/22 Inhaler] Fluticasone/Salmeterol [Advair Hfa 1 puffs IH BID 12/30/20 01/28/22 115-21 Mcg Inhaler] Oxybutynin Chloride [Ditropan Xl] 10 mg PO DAILY 12/30/20 01/28/22 Potassium Chloride [Micro-K] 40 meq PO DAILY 12/30/20 01/28/22 hydroCHLOROthiazide 50 mg PO DAILY 12/30/20 01/28/22 [Hydrochlorothiazide] fentaNYL [Fentanyl 25mcg patch] 1 each TD Q3D 12/31/20 01/28/22 D-Mannose [Azo D-Mannose] 500 mg PO TIDWM 01/26/21 01/28/22 Mineral Oil [Mineral Oil Enema] 1 ea RC DAILY PRN 05/21/21 01/28/22 polyethylene glycoL 3350 [Miralax] 17 gm PO DAILY PRN 05/21/21 01/30/22 Saccharomyces Boulardii [Florastor] 250 mg PO BIDWM #10 cap 05/24/21 01/28/22 Acetaminophen [Aphen] 650 mg PO Q4H PRN 01/30/22 01/30/22 Ferrous Sulfate 325 mg PO DAILY 01/30/22 01/30/22 Atorvastatin [Lipitor] 40 mg PO QPM tablet 02/03/22 Baclofen [Lioresal] 10 mg PO TID tablet 02/03/22 cefTRIAXone [Rocephin 1 gram] 1 gm IV DAILY #8 vial 02/03/22 - PHYSICAL EXAM AT DISCHARGE General Appearance: positive: No acute distress, Alert, Other (HOB upright) Eyes Bilateral: positive: Normal inspection, EOMI ENT: positive: No signs of dehydration Neck: positive: Nml inspection, No JVD Respiratory: positive: No respiratory distress Cardiovascular: positive: Regular rate & rhythm Abdomen: positive: Non-tender, No distention Skin: positive: Warm, Dry Extremities: positive: Other (1+ edema) Neurologic/Psychiatric: positive: Disoriented to person, Disoriented to time, Other (Poor memory. Paraplegic from the mid-chest down.) - LABS Result Diagrams: 02/02/22 06:20 02/02/22 06:20 - DIAGNOSTIC IMAGING Diagnostic Imaging Results: Final report reviewed - FOLLOW UP Follow Up: See PCP in 1-2 weeks, for a hospital follow-up visit. - TIME SPENT Time Spent in Discharge (Minutes): 50
[2022-02-03 11:56] VITALS: BP 138/87
== END 2022-02-03 13:25 | DRG 698 ==
LOC: EDUNIT# → ED 14:51 → MS2 18:47
PROVIDERS: ADMIT Internal Medicine; ATTEND Internal Medicine
DX: T83.511A Infection and inflammatory reaction due to indwelling urethral catheter, initial encounter (principal); J96.01 Acute respiratory failure with hypoxia; R09.02 Hypoxemia; D72.829 Elevated white blood cell count, unspecified; G93.41 Metabolic encephalopathy; G35 Multiple sclerosis; G62.9 Polyneuropathy, unspecified; N39.0 Urinary tract infection, site not specified; B96.89 Other specified bacterial agents as the cause of diseases classified elsewhere; E78.00 Pure hypercholesterolemia, unspecified; R06.00 Dyspnea, unspecified; E78.5 Hyperlipidemia, unspecified; Z20.822 Contact with and (suspected) exposure to COVID-19; K59.09 Other constipation; Z74.01 Bed confinement status; H54.7 Unspecified visual loss; F32.A Depression, unspecified; Z87.891 Personal history of nicotine dependence; F41.9 Anxiety disorder, unspecified; R32 Unspecified urinary incontinence; Z66 Do not resuscitate; Z79.891 Long term (current) use of opiate analgesic; Z79.899 Other long term (current) drug therapy; Z80.51 Family history of malignant neoplasm of kidney; Z80.9 Family history of malignant neoplasm, unspecified; Z86.73 Personal history of transient ischemic attack (TIA), and cerebral infarction without residual deficits; Z88.0 Allergy status to penicillin; Z88.8 Allergy status to other drugs, medicaments and biological substances; Z99.3 Dependence on wheelchair
CPT/HCPCS: 36415; 70450; 71045; 80048; 80053; 81001; 83690; 83735; 85025; 87077; 87086; 87181; 87633; 87635; 96361; 96365; 96375; 97162; 97166; 99281; 99285; A9270; G0480; 80320; 81003

== ENCOUNTER 2022-02-03 13:27 | Outpatient (CLI) | payer MEDICARE, MEDICAID | END 2022-02-03 13:28 | disposition home or self-care (01) | LOC: EMS 13:27 | PROVIDERS: ATTEND Internal Medicine | DX: N39.0 Urinary tract infection, site not specified (principal); G35 Multiple sclerosis; Z74.01 Bed confinement status | CPT/HCPCS: A0425; A0428 ==

== ENCOUNTER 2022-02-07 08:00 | Outpatient (CLI) | payer MEDICARE, MEDICAID ==
[2022-02-07 21:44] LABS: CHOL/HDL RATIO 2.5 (<4.4); CHOLESTEROL 106 mg/dL; HDL CHOLESTEROL 43 mg/dL; LDL CHOLESTEROL,CALCULATED 28 mg/dL; LDL/HDL RATIO 0.7 (<4.4); TRIGLYCERIDES 173 mg/dL; VLDL CHOLESTEROL 35 mg/dL
== END 2022-02-07 23:59 | disposition home or self-care (01) ==
LOC: LAB.R 08:00
PROVIDERS: ATTEND Hospitalist
DX: E78.5 Hyperlipidemia, unspecified (principal)
CPT/HCPCS: 80061; 83721

== ENCOUNTER 2022-03-17 22:31 | Outpatient (CLI) | payer MEDICARE, MEDICAID | END 2022-03-17 22:32 | disposition critical access hospital (66) | LOC: EMS 22:31 | DX: R41.0 Disorientation, unspecified (principal); R53.83 Other fatigue; R29.810 Facial weakness; Z74.01 Bed confinement status | CPT/HCPCS: A0425; A0429 ==

== ENCOUNTER 2022-03-17 22:36 | Emergency (ER) | payer MEDICARE, MEDICAID ==
[2022-03-17 22:59] LABS: BILIRUBIN,URINE NEGATIVE (NEGATIVE); GLUCOSE, URINE (UA) NEGATIVE (NEGATIVE); KETONES,URINE (UA) NEGATIVE (NEGATIVE); LEUKOCYTE ESTERASE, URINE LARGE (NEGATIVE); NITRITE,URINE NEGATIVE (NEGATIVE); OCCULT BLOOD,URINE SMALL (NEGATIVE); PROTEIN,URINE NEGATIVE (NEGATIVE); UROBILINOGEN,URINE 0.2 (NORMAL) E.U./dL (NORMAL)
[2022-03-17 23:11] LABS: AMORPHOUS SEDIMENT,UR Few /LPF; BACTERIA,URINE Many /HPF (None Seen); CLARITY,URINE SL. CLOUDY (CLEAR); CRYSTALS,URINE 0-2 Calcium Oxalate /LPF; RBC,URINE 0-5 /HPF (0-5); SQUAMOUS EPITHELIAL CELL,UR NONE SEEN (<= Few)
[2022-03-18 00:15] LABS: BASOPHILS # (AUTO) 0.1 10^3/uL (0.0-0.1); BASOPHILS % (AUTO) 0.5 %; EOSINOPHILS # (AUTO) 0.4 10^3/uL (0.0-0.7); EOSINOPHILS % (AUTO) 2.7 %; HCT - HEMATOCRIT 34.8 % (37.0-47.0); HGB - HEMOGLOBIN 10.7 g/dL (12.0-16.0); LYMPHOCYTES # (AUTO) 3.5 10^3/uL (1.5-3.5); LYMPHOCYTES % (AUTO) 23.2 %; MEAN CORPUSCULAR HEMOGLOBIN 24.9 pg (27.0-31.0); MEAN CORPUSCULAR HGB CONC 30.7 g/dL (32.0-36.0); MEAN CORPUSCULAR VOLUME 81.1 fL (81.0-99.0); MEAN PLATELET VOLUME 9.5 fL (7.9-10.8); MONOCYTES # (AUTO) 1.1 10^3/uL (0.0-1.0); MONOCYTES % (AUTO) 7.3 %; NEUTROPHILS # (AUTO) 9.8 10^3/uL (1.5-6.6); PLT - PLATELET COUNT 398 10^3/uL (130-450); RED BLOOD COUNT 4.29 10^6/uL (4.20-5.40); RED CELL DISTRIBUTION WIDTH 16.9 % (12.0-15.0); WHITE BLOOD COUNT 14.8 x10^3/uL (4.8-10.8)
[2022-03-18 00:28] LABS: ALBUMIN 3.3 g/dL (3.2-5.5); ALBUMIN/GLOBULIN RATIO 0.6 (1.0-2.2); BILIRUBIN,TOTAL 0.6 mg/dL (0.2-1.0); CALCIUM 8.9 mg/dL (8.5-10.3); CREATININE 0.5 mg/dL (0.4-1.0); POTASSIUM 3.2 mmol/L (3.5-5.0); TOTAL PROTEIN 8.4 g/dL (6.7-8.2)
--- NOTE | 2022-03-18 00:54 | CT Report ---
PROCEDURE: HEAD WO INDICATIONS: L facial droop, ALOC TECHNIQUE: Noncontrast 4.5 mm thick angled axial sections acquired from the foramen magnum to the vertex. For r adiation dose reduction, the following was used: automated exposure control, adjustment of mA and/or kV according to patient size. COMPARISON: CT head 01/26/2022. FINDINGS: Image quality: Excellent. CSF spaces: There is mild cerebral volume loss with prominence of the ventricles and sulci. Basal ci sterns are patent. No extra-axial fluid collections. Brain: No intracranial hemorrhage, mass, or mass effect. Zhang-white matter interface is preserved. T here are subcortical and periventricular white matter hypodensities consistent with mild chronic smal l vessel ischemic changes. Skull and face: Calvarium and visualized facial bones are intact, without suspicious lesions. Sinuses: Visualized sinuses demonstrate air-fluid levels within the bilateral sphenoid sinuses. Mast oid air cells are clear. IMPRESSION: 1. No acute intracranial abnormality. 2. Mild chronic white matter small vessel ischemic changes and cerebral volume loss. 3. Air-fluid levels within the bilateral sphenoid sinuses suggestive of acute sinusitis. Reviewed by: Gregory Staley MD on 03/18/2022 12:53 AM PDT Approved by: Gregory Staley MD on 03/18/2022 12:53 AM PDT Station ID: [id number]
[2022-03-18] MEDS ORDERED: levoFLOXacin 250 MG TABLET PO STA (00:55)
--- NOTE | 2022-03-18 00:58 | ED Physician Documentation ---
History of Present Illness - Stated complaint Stated Complaint: AMS - Chief complaint Chief Complaint: Neuro - History obtained from History obtained from: Patient, EMS - Additonal information Additional information: The patient was sent to the emergency department by EMS from [facility] for chief complaint of "staff noticed left facial droop and patient was acting right". The patient herself does not think that anything has been wrong. She states she has not felt ill and did not notice any weakness that is beyond the usual with her advanced MS. The patient does have a history of recurrent urinary tract infections and was treated in recent weeks for UTI. She denies any fevers or chills. No nausea or vomiting. She states she urinates on her own and has not had any dysuria. The patient has a POLST form stating "DNR". Review of Systems Ten Systems: 10 systems reviewed and negative Constitutional: reports: Reviewed and negative Eyes: reports: Reviewed and negative Ears: reports: Reviewed and negative Nose: reports: Reviewed and negative Throat: reports: Reviewed and negative Cardiac: reports: Reviewed and negative Respiratory: reports: Reviewed and negative GI: reports: Reviewed and negative : reports: Reviewed and negative Skin: reports: Reviewed and negative Musculoskeletal: reports: Reviewed and negative Neurologic: reports: Reviewed and negative Psychiatric: reports: Reviewed and negative Endocrine: reports: Reviewed and negative Immunocompromised: reports: Reviewed and negative PD PAST MEDICAL HISTORY - Past Medical History Past Medical History: Yes Cardiovascular: High cholesterol Respiratory: None Neuro: CVA, Peripheral neuropathy, Multiple sclerosis Endocrine/Autoimmune: Other GI: Hemorrhoids, 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 - Past Surgical History Past Surgical History: Yes General: Colonoscopy, EGD Ortho: Other - Present Medications Home Medications: Ambulatory Orders Medication Instructions Recorded Confirmed Cholecalciferol (Vitamin D3) 2,000 unit PO DAILY 01/28/18 01/28/22 [Vitamin D3] Calcium Carbonate [Tums (Calcium 1,000 mg PO Q4HR PRN 11/09/18 03/17/22 Carbonate 500mg)] DULoxetine [Cymbalta] 60 mg PO DAILY 11/09/18 03/17/22 Naloxone HCl 0.1 ml SLY PRN PRN 11/09/18 01/28/22 Sennosides [Senna Lax] 8.6 mg PO BID PRN 06/07/19 03/17/22 Albuterol Sulf [Ventolin Hfa 2 puffs INH Q4H PRN 08/23/20 03/17/22 Inhaler] Fluticasone/Salmeterol [Advair Hfa 1 puffs IH BID 12/30/20 03/17/22 115-21 Mcg Inhaler] Oxybutynin Chloride [Ditropan Xl] 10 mg PO DAILY 12/30/20 03/17/22 Potassium Chloride [Micro-K] 40 meq PO DAILY 12/30/20 03/17/22 hydroCHLOROthiazide 50 mg PO DAILY 12/30/20 03/17/22 [Hydrochlorothiazide] D-Mannose [Azo D-Mannose] 500 mg PO TIDWM 01/26/21 03/17/22 Mineral Oil [Mineral Oil Enema] 1 ea RC DAILY PRN 05/21/21 03/17/22 Saccharomyces Boulardii [Florastor] 250 mg PO BIDWM #10 cap 05/24/21 03/17/22 Acetaminophen [Aphen] 650 mg PO Q4H PRN 01/30/22 03/17/22 Ferrous Sulfate 325 mg PO DAILY 01/30/22 03/17/22 Atorvastatin [Lipitor] 40 mg PO QPM tablet 02/03/22 Baclofen [Lioresal] 10 mg PO TID tablet 02/03/22 03/17/22 Magnesium Citrate 296 ml PO ONCE #1 ea 03/07/22 03/17/22 polyethylene glycoL 3350 [Miralax] 17 gm PO DAILY PRN #238 gm 03/07/22 03/17/22 levoFLOXacin [Levaquin] 500 mg PO QD #14 tablet 03/18/22 - Allergies Allergies/Adverse Reactions: Allergies Allergy/AdvReac Type Severity Reaction Status Date / Time nystatin Allergy Unknown Verified 03/17/22 22:48 Penicillins Allergy Unknown Verified 03/17/22 22:48 - Social History Does the pt smoke?: No Smoking Status: Never smoker Does the pt drink ETOH?: No Does the pt have substance abuse?: No - Immunizations Immunizations are current?: Yes - POLST Patient has POLST: Yes POLST Status: DNR (Advanced care planning. Patient does have D POA which is her son Adan, has a POLST in place with the OSIEL and selective treatments. She is quite thoughtful and pragmatic and wane benefits and burdens of medical in terventions and appointments. We will continue to anticipate decline in the future,) PD ED PE NORMAL - Vitals Vital signs reviewed: Yes - General General: No acute distress, Well developed/nourished, Other (The patient is alert and answers questions appropriately.) - HEENT HEENT: Atraumatic, PERRL, EOMI, Moist mucous membranes - Neck Neck: Supple, no meningeal sign - Cardiac Cardiac: RRR, No murmur, Strong equal pulses - Respiratory Respiratory: No respiratory distress, Clear bilaterally - Abdomen Abdomen: Soft, Non distended, Other (Mild epigastric tenderness, no rebound or guarding.) - Derm Derm: Normal color, Warm and dry, No rash - Extremities Extremities: No edema, Other (Mild left ankle contracture and mild contractures of both feet.) - 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 She has generalized, nonfocal weakness consistent with her history of advanced MS.) - Psych Psych: Normal mood, Normal affect Results - Vitals Vitals: Vital Signs - 24 hr 03/17/22 03/17/22 03/18/22 22:45 23:01 00:44 Temperature 36.2 C L Heart Rate 72 67 61 Respiratory 16 12 16 Rate Blood Pressure 113/55 L 121/65 O2 Saturation 95 97 96 Oxygen O2 Source Room air - Labs Labs: Laboratory Tests 03/17/22 03/18/22 03/18/22 22:48 00:05 00:05 WBC 14.8 H RBC 4.29 Hgb 10.7 L Hct 34.8 L MCV 81.1 MCH 24.9 L MCHC 30.7 L RDW 16.9 H Plt Count 398 MPV 9.5 Neut # (Auto) 9.8 H Lymph # (Auto) 3.5 [place] # (Auto) 1.1 H Eos # (Auto) 0.4 Baso # (Auto) 0.1 Absolute Nucleated RBC 0.00 Nucleated RBC % 0.0 Sodium 136 Potassium 3.2 L Chloride 93 L Carbon Dioxide 33 H Anion Gap 10.0 BUN 20 Creatinine 0.5 Estimated GFR (MDRD) 121 Glucose 118 H Calcium 8.9 Total Bilirubin 0.6 AST 14 ALT 12 Alkaline Phosphatase 86 Total Protein 8.4 H Albumin 3.3 Globulin 5.1 H Albumin/Globulin Ratio 0.6 L Lipase 26 Urine Color YELLOW Urine Clarity SL. CLOUDY Urine pH 7.0 Ur Specific [place] 1.010 Urine Protein NEGATIVE Urine Glucose (UA) NEGATIVE Urine Ketones NEGATIVE Urine Occult Blood SMALL H Urine Nitrite NEGATIVE Urine Bilirubin NEGATIVE Urine Urobilinogen 0.2 (NORMAL) Ur Leukocyte Esterase LARGE H Urine RBC 0-5 Urine WBC 11-25 H Ur Squamous Epith Cells NONE SEEN Urine Crystals 0-2 Calcium Oxalate Amorphous Sediment Few Urine Bacteria Many H Ur Microscopic Review INDICATED Urine Culture Comments INDICATED - Rads (name of study) CT head Radiology: Final report received, EMP read indepedently, See rad report (No acute intracranial abnormality. Air-fluid levels in bilateral sphenoid sinuses) PD MEDICAL DECISION MAKING - ED course Complexity details: reviewed results, re-evaluated patient, considered differential, d/w patient ED course: The patient's Examination did not reveal a facial droop and the patient seemed quite mentally clear in the emergency department. I did work her up with a CT scan of the head, which showed no acute intracranial abnormality but radiologist did note air-fluid levels in the sphenoid sinuses. The patient had absolutely no complaints in the area and had no fever or facial pain or congestion or nasal drainage, and I did not feel that the finding of possible sinusitis correlated with the patient's clinical picture. Her white blood cell count was found to be 14,000 and her urinalysis was strongly positive. The patient was started on Levaquin for this. She does not display vital signs consistent with sepsis and has a normal heart rate, blood pressure, and temperature here. I feel she is stable for discharge home. We have discussed the need for antibiotics. We have discussed the usual indications for return. Departure - Departure Disposition: 01 Home, Self Care Clinical Impression: Urinary tract infection Qualifiers: Urinary tract infection type: acute cystitis Hematuria presence: without hematuria Qualified Code(s): N30.00 - Acute cystitis without hematuria Condition: Stable Instructions: ED UTI Cystitis Female Prescriptions: levoFLOXacin [Levaquin] 500 mg PO QD #14 tablet Comments: No facial drooping was noted here, and your confusion seem to have resolved. Your head CT did not show anything to explain your symptoms, but your urinalysis was strongly positive. You have been started on antibiotics for this today. Please take the antibiotics every day, as directed, until the course is complete.
[2022-03-18 01:52] VITALS: BP 132/80
== END 2022-03-18 01:52 | disposition home or self-care (01) ==
LOC: EDUNIT# → ED 22:36
DX: N30.00 Acute cystitis without hematuria (principal); Z66 Do not resuscitate
CPT/HCPCS: 36415; 70450; 80053; 81001; 83690; 85025; 87077; 87086; 87181; 99283; 99284; A9270; 81003

== ENCOUNTER 2022-03-18 01:50 | Outpatient (CLI) | payer MEDICARE, MEDICAID | END 2022-03-18 01:51 | disposition home or self-care (01) | LOC: EMS 01:50 | PROVIDERS: ATTEND Emergency Medicine | DX: N39.0 Urinary tract infection, site not specified (principal); R41.0 Disorientation, unspecified; G35 Multiple sclerosis; Z74.01 Bed confinement status | CPT/HCPCS: A0425; A0428 ==

== ENCOUNTER 2022-03-21 15:00 | Outpatient (CLI) | payer MEDICARE, MEDICAID ==
[2022-03-21 10:18] LABS: % IRON SATURATION 16 % (20-50); IRON 54 ug/dL (28-170); TOTAL IRON BINDING CAPACITY 339 ug/dL (250-450); TRANSFERRIN 242 mg/dL (192-382)
[2022-03-21 10:26] LABS: FERRITIN 14.5 ng/mL (11.0-306.8)
[2022-03-21 10:30] LABS: FOLATE 11.16 ng/mL (5.90 - >24.8)
[2022-03-21 16:07] LABS: ABSOLUTE RETICS # AUTO 0.06 10^6/uL (0.020-0.110); RED BLOOD COUNT 4.44 10^6/uL (4.20-5.40); RETICULOCYTE COUNT % (AUTO) 1.35 % (0.5-2.3)
== END 2022-03-21 23:59 | disposition home or self-care (01) ==
LOC: LAB.R 15:00
PROVIDERS: ATTEND Hospitalist
DX: G35 Multiple sclerosis (principal); D64.9 Anemia, unspecified
CPT/HCPCS: 82607; 82728; 82746; 83540; 84466; 85045

== ENCOUNTER 2022-04-16 08:00 | Outpatient (CLI) | payer MEDICARE, MEDICAID ==
[2022-04-16 21:21] LABS: BILIRUBIN,URINE NEGATIVE (NEGATIVE); GLUCOSE, URINE (UA) NEGATIVE (NEGATIVE); KETONES,URINE (UA) NEGATIVE (NEGATIVE); LEUKOCYTE ESTERASE, URINE SMALL (NEGATIVE); NITRITE,URINE NEGATIVE (NEGATIVE); OCCULT BLOOD,URINE NEGATIVE (NEGATIVE); PROTEIN,URINE NEGATIVE (NEGATIVE); UROBILINOGEN,URINE 0.2 (NORMAL) E.U./dL (NORMAL)
[2022-04-16 21:32] LABS: BACTERIA,URINE Few /HPF (None Seen); CLARITY,URINE CLEAR (CLEAR); RBC,URINE 0-5 /HPF (0-5); SQUAMOUS EPITHELIAL CELL,UR FEW Squamous (<= Few)
== END 2022-04-16 23:59 | disposition home or self-care (01) ==
LOC: LAB.R 08:00
PROVIDERS: ATTEND Hospitalist
DX: N39.0 Urinary tract infection, site not specified (principal)
CPT/HCPCS: 81001; 87086

== ENCOUNTER 2022-04-25 12:37 | Outpatient (CLI) | payer MEDICARE, MEDICAID | END 2022-04-25 12:38 | disposition critical access hospital (66) | LOC: EMS 12:37 | DX: T83.021A Displacement of indwelling urethral catheter, initial encounter (principal) | CPT/HCPCS: A0425; A0429 ==

== ENCOUNTER 2022-04-25 15:35 | Outpatient (CLI) | payer MEDICARE, MEDICAID | END 2022-04-25 15:36 | disposition home or self-care (01) | LOC: EMS 15:35 | PROVIDERS: ATTEND Emergency Medicine | DX: Z46.6 Encounter for fitting and adjustment of urinary device (principal); G35 Multiple sclerosis; Z74.01 Bed confinement status | CPT/HCPCS: A0425; A0428 ==

== ENCOUNTER 2022-07-07 08:00 | Outpatient (CLI) | payer MEDICARE, MEDICAID ==
[2022-07-07 19:47] LABS: B. PARAPERTUSSIS- RESP PCR PAN NOT DETECTED; B. PERTUSSIS- RESP PCR PANEL NOT DETECTED; C. PNEUMONIAE- RESP PCR PANEL NOT DETECTED; CORONAVIRUS 229E-RESP PCR NOT DETECTED; CORONAVIRUS HKU1-RESP PCR NOT DETECTED; CORONAVIRUS NL63-RESP PCR NOT DETECTED; CORONAVIRUS OC43-RESP PCR NOT DETECTED; HUMAN METAPNEUMOVIRUS NOT DETECTED; INFLUENZA A- RESP PCR PANEL NOT DETECTED; INFLUENZA B - RESP PCR PANEL NOT DETECTED; M. PNEUMONIAE- RESP PCR PANEL NOT DETECTED; PARAINFLUENZA VIRUS 1 NOT DETECTED; PARAINFLUENZA VIRUS 2 NOT DETECTED; PARAINFLUENZA VIRUS 3 NOT DETECTED; PARAINFLUENZA VIRUS 4 NOT DETECTED; RHINOVIRUS/ENTEROVIRUS NOT DETECTED; RSV- RESP PCR PANEL DETECTED; SARS-CoV-2 -RESP PCR PANEL NOT DETECTED
== END 2022-07-07 23:59 | disposition home or self-care (01) ==
LOC: LAB.R 08:00
DX: R05.9 Cough, unspecified (principal); Z20.822 Contact with and (suspected) exposure to COVID-19
CPT/HCPCS: 87633

== ENCOUNTER 2022-10-12 15:14 | Outpatient (CLI) | payer MEDICARE, MEDICAID | END 2022-10-12 15:15 | disposition critical access hospital (66) | LOC: EMS 15:14 | DX: R06.03 Acute respiratory distress (principal); R50.9 Fever, unspecified; R41.82 Altered mental status, unspecified | CPT/HCPCS: A0425; A0429 ==

== ENCOUNTER 2022-10-12 15:19 | Inpatient (IN) | payer MEDICARE, MEDICAID ==
[2022-10-12] MEDS ORDERED: IPRATROPIUM/ALBUTEROL 3 ML NEB INH STA (15:25)
--- NOTE | 2022-10-12 15:40 | ED Physician Documentation ---
History of Present Illness - Stated complaint Stated Complaint: SOA - Chief complaint Chief Complaint: Resp - History obtained from History obtained from: EMS - History of Present Illness Timing: Today Pain level max: 0 Pain level now: 0 - Additonal information Additional information: 72-year-old female presents to the emergency department via EMS. She has a history of multiple sclerosis with spastic paraplegia. She lives at [facility]. Has a history of COPD as well. Today she was found with decreased mental status, hypoxia. She reportedly had a fever as well. Tmax 102. Reportedly negative COVID test this morning. Patient is DNR with limited interventions. 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, Other : Incontinence, Chronic bladder infection HEENT: Chronic vision loss Psych: Depression, Anxiety Musculoskeletal: Paraplegia, Other Derm: Other - Past Surgical History Past Surgical History: Yes General: Colonoscopy, EGD Ortho: Other - Present Medications Home Medications: Ambulatory Orders Medication Instructions Recorded Confirmed Cholecalciferol (Vitamin D3) 2,000 unit PO DAILY 01/28/18 10/12/22 [Vitamin D3] Calcium Carbonate [Tums (Calcium 1,000 mg PO Q4HR PRN 11/09/18 10/12/22 Carbonate 500mg)] DULoxetine [Cymbalta] 60 mg PO DAILY 11/09/18 10/12/22 Naloxone HCl 0.1 ml SLY PRN PRN 11/09/18 10/12/22 Sennosides [Senna Lax] 8.6 mg PO BID PRN 06/07/19 10/12/22 Albuterol Sulf [Ventolin Hfa 2 puffs INH Q4H PRN 08/23/20 10/12/22 Inhaler] Fluticasone/Salmeterol [Advair Hfa 1 puffs IH BID 12/30/20 10/12/22 115-21 Mcg Inhaler] Oxybutynin Chloride [Ditropan Xl] 10 mg PO DAILY 12/30/20 10/12/22 Potassium Chloride [Micro-K] 40 meq PO DAILY 12/30/20 03/17/22 hydroCHLOROthiazide 50 mg PO DAILY 12/30/20 10/12/22 [Hydrochlorothiazide] D-Mannose [Azo D-Mannose] 500 mg PO TIDWM 01/26/21 10/12/22 Mineral Oil [Mineral Oil Enema] 1 ea RC DAILY PRN 05/21/21 10/12/22 Saccharomyces Boulardii [Florastor] 250 mg PO BIDWM #10 cap 05/24/21 03/17/22 Acetaminophen [Aphen] 650 mg PO Q4H PRN 01/30/22 10/12/22 Ferrous Sulfate 325 mg PO DAILY 01/30/22 10/12/22 Atorvastatin [Lipitor] 40 mg PO QPM tablet 02/03/22 10/12/22 Baclofen [Lioresal] 10 mg PO TID tablet 02/03/22 10/12/22 Magnesium Citrate 296 ml PO ONCE #1 ea 03/07/22 03/17/22 polyethylene glycoL 3350(BULK) 17 gm PO DAILY PRN #238 gm 03/07/22 10/12/22 [Miralax] fentaNYL [Fentanyl 25mcg patch] 1 each TD Q3D 10/12/22 10/12/22 - Allergies Allergies/Adverse Reactions: Allergies Allergy/AdvReac Type Severity Reaction Status Date / Time nystatin Allergy Unknown Verified 10/12/22 15:35 Penicillins Allergy Unknown Verified 10/12/22 15:35 - Social History Does the pt smoke?: No Smoking Status: Never smoker Does the pt drink ETOH?: No Does the pt have substance abuse?: No - Immunizations Immunizations are current?: Yes - POLST Patient has POLST: Yes POLST Status: DNR (Advanced care planning. Patient does have D POA which is her son Adan, has a POLST in place with the OSIEL and selective treatments. She is quite thoughtful and pragmatic and wane benefits and burdens of medical interventions and appointments. We will continue to anticipate decline in the future,) PD ED PE NORMAL - General General: Well developed/nourished, Other (Drowsy, arousable) - HEENT HEENT: Atraumatic, PERRL, Ears normal, Moist mucous membranes, Pharynx benign, Other (Yellow drainage to the bilateral eyes) - Neck Neck: Supple, no meningeal sign - Cardiac Cardiac: RRR - Respiratory Respiratory: Other (Coarse rhonchi bilaterally) - Abdomen Abdomen: Soft, Non tender, Non distended - Derm Derm: Warm and dry - Extremities Extremities: No calf tenderness / cord - Neuro Eye Opening: To Voice Motor: Withdraws to Pain Verbal: None GCS Score: 8 Results - Vitals Vitals: Vital Signs - 24 hr 10/12/22 10/12/22 10/12/22 15:35 15:36 15:56 Temperature 37.8 C Heart Rate 120 H 103 H 128 H Respiratory 14 18 14 Rate Blood Pressure 93/63 93/65 O2 Saturation 97 96 If not protocol 15 15 : Oxygen Flow, liters/minute 10/12/22 10/12/22 10/12/22 16:33 16:42 17:13 Temperature Heart Rate 85 88 85 Respiratory 12 20 15 Rate Blood Pressure 111/70 98/57 L O2 Saturation 100 98 100 If not protocol 15 6 6 : Oxygen Flow, liters/minute Oxygen O2 Source Simple Mask Oxygen Flow Rate 6 - Labs Labs: Laboratory Tests 10/12/22 10/12/22 10/12/22 15:30 15:50 15:50 WBC 33.2 H RBC 4.59 Hgb 11.4 L Hct 38.0 MCV 82.8 MCH 24.8 L MCHC 30.0 L RDW 17.2 H Plt Count 452 H MPV 9.8 Neut # (Auto) Not Reportable Lymph # (Auto) Not Reportable [place] # (Auto) Not Reportable Eos # (Auto) Not Reportable Baso # (Auto) Not Reportable Absolute Nucleated RBC Not Reportable Total Counted 100 Band Neuts % (Manual) 1 Abnorm Lymph % (Manual) 0 Nucleated RBC % Not Reportable Neutrophils # (Manual) 28.2 H Lymphocytes # (Manual) 2.7 Monocytes # (Manual) 2.3 H Eosinophils # (Manual) 0.0 Basophils # (Manual) 0.0 Differential Comment MANUAL DIFFERENTIAL Platelet Estimate INCREASED (>450,000) Platelet Morphology NORMAL APPEARANCE RBC Morph Micro Appear 2+ ANISOCYTOSIS PT 14.7 H INR 1.3 H APTT 29.6 Sodium Potassium Chloride Carbon Dioxide Anion Gap BUN Creatinine Estimated GFR (MDRD) Glucose Lactic Acid Calcium Total Bilirubin AST ALT Alkaline Phosphatase Total Protein Albumin Globulin Albumin/Globulin Ratio Lipase Nasal Adenovirus (PCR) NOT DETECTED Nasal B. parapertussis DNA (PCR) NOT DETECTED Nasal Coronavir 229E PCR NOT DETECTED Nasal Coronavir HKU1 PCR NOT DETECTED Nasal Coronavir NL63 PCR NOT DETECTED Nasal Coronavir OC43 PCR NOT DETECTED Nasal Enterovir/Rhinovir PCR NOT DETECTED Nasal Influenza B PCR NOT DETECTED Nasal Influenza A PCR NOT DETECTED Nasal Parainfluen 1 PCR NOT DETECTED Nasal Parainfluen 2 PCR NOT DETECTED Nasal Parainfluen 3 PCR DETECTED A Nasal Parainfluen 4 PCR NOT DETECTED Nasal RSV (PCR) NOT DETECTED Nasal B.pertussis DNA PCR NOT DETECTED Nasal C.pneumoniae (PCR) NOT DETECTED Sly Human Metapneumo PCR NOT DETECTED Nasal M.pneumoniae (PCR) NOT DETECTED Nasal SARS-CoV-2 (PCR) NOT DETECTED 10/12/22 10/12/22 15:50 15:50 WBC RBC Hgb Hct MCV MCH MCHC RDW Plt Count MPV Neut # (Auto) Lymph # (Auto) [place] # (Auto) Eos # (Auto) Baso # (Auto) Absolute Nucleated RBC Total Counted Band Neuts % (Manual) Abnorm Lymph % (Manual) Nucleated RBC % Neutrophils # (Manual) Lymphocytes # (Manual) Monocytes # (Manual) Eosinophils # (Manual) Basophils # (Manual) Differential Comment Platelet Estimate Platelet Morphology RBC Morph Micro Appear PT INR APTT Sodium 134 L Potassium 2.9 L Chloride 91 L Carbon Dioxide 33 H Anion Gap 10.0 BUN 15 Creatinine 0.3 L Estimated GFR (MDRD) 217 Glucose 135 H Lactic Acid 1.0 Calcium 8.5 Total Bilirubin 0.5 AST 14 ALT 10 Alkaline Phosphatase 83 Total Protein 8.3 H Albumin 3.0 L Globulin 5.3 H Albumin/Globulin Ratio 0.6 L Lipase 24 Nasal Adenovirus (PCR) Nasal B. parapertussis DNA (PCR) Nasal Coronavir 229E PCR Nasal Coronavir HKU1 PCR Nasal Coronavir NL63 PCR Nasal Coronavir OC43 PCR Nasal Enterovir/Rhinovir PCR Nasal Influenza B PCR Nasal Influenza A PCR Nasal Parainfluen 1 PCR Nasal Parainfluen 2 PCR Nasal Parainfluen 3 PCR Nasal Parainfluen 4 PCR Nasal RSV (PCR) Nasal B.pertussis DNA PCR Nasal C.pneumoniae (PCR) Sly Human Metapneumo PCR Nasal M.pneumoniae (PCR) Nasal SARS-CoV-2 (PCR) - Rads (name of study) cxr Relevant Findings:: Final report received, See rad report PD Medical Decision Making - ED course Complexity details: reviewed results, re-evaluated patient, considered differential, d/w emergency management consultant ED course: 72-year-old female with altered mental status, hypoxia, fever, hypotension. Initially thought to be due to pneumonia and UTI, therefore started on rocephin and azithromycin. She has purulent urine draining from her catheter. She has a leukocytosis of 33,000, 28,000 which are neutrophils. Her chemistry shows a normal lactic acid. Mild hyponatremia at 134, mild hypokalemia 2.9 and a mildly elevated carbon dioxide at 33. This is a normal and chronic level for her. Her respiratory panel is positive for parainfluenza 3. She had been given Narcan in the past for potential overdose from fentanyl patches, the fentanyl patch was removed here and given 0.4 mg of Narcan, no change. She was able to be weaned from 15 L down to 6 L simple mask of oxygen in the emergency department. She does use nebulizer treatments at home. Likely that the parainfluenza type III and UTI are causing the majority of her symptoms. We will admit the patient for further care, continued antibiotics, IV fluids and breathing treatments. Discussed the case with Dr. Corrigan, hospitalist accepts This document was made in part using voice recognition software. While efforts are made to proofread this document, sound alike and grammatical errors may occur. - Sepsis Event Sepsis Onset Date: 10/12/22 Sepsis Onset Time: 16:00 Current Stage of Sepsis: Sepsis Possible source of Sepsis: Pulmonary, Genitourinary Mental/Cognitive Status: Confused, Lethargic, Change from baseline Reason for not giving 30ml/kg crystalloid fluids: Not in septic shock Capillary refill: Less than 2 seconds Peripheral Pulse Strength: 2+ Slightly Diminished Peripheral Pulse Location: Radial Bedside ultrasound performed: No Departure - Departure Disposition: 66 [facility] DC/Xfer Clinical Impression: Hypoxia, Parainfluenza UTI (urinary tract infection) Qualifiers: Urinary tract infection type: catheter-associated UTI Indwelling urinary catheter type: indwelling urethral catheter Encounter type: initial encounter Qualified Code(s): T83.511A - Infection and inflammatory reaction due to indwelling urethral catheter, initial encounter Sepsis Qualifiers: Sepsis type: sepsis due to unspecified organism Sepsis acute organ dysfunction status: without acute organ dysfunction Qualified Code(s): A41.9 - Sepsis, unspecified organism Condition: Stable
--- NOTE | 2022-10-12 15:46 | XRAY Report ---
PROCEDURE: Chest 1 View X-Ray INDICATIONS: dyspnea, COPD TECHNIQUE: One view of the chest was acquired. COMPARISON: 12/29/2021 FINDINGS: Surgical changes and devices: None. Lungs and pleura: An incomplete inspiratory result is noted, with low lung volumes and crowding of t he vascular markings. No focal infiltrates are seen. Mild generalized interstitial prominence can be seen. No large pneumothorax or large pleural effusion can be seen. Mediastinum: Mediastinal contours appear normal. Heart size is normal. Bones and chest wall: No suspicious bony lesions. S-shaped scoliotic curvature is incidentally noted . Age-appropriate degenerative changes are seen. Overlying soft tissues appear unremarkable. IMPRESSION: Mild generalized interstitial prominence can be seen. Please consider artifact from the incomplete in spiration result versus mild pulmonary edema. Please consider a short-term follow-up 2 view chest series (performed in deep inspiration) for furthe r evaluation. Reviewed by: Praneeth Eisenberg MD on 10/12/2022 2:45 PM AKDT Approved by: Praneeth Eisenberg MD on 10/12/2022 2:45 PM AKLEVI Station ID: [id number]
[2022-10-12 16:00] LABS: BASOPHILS % (AUTO) 0.5 %; HGB - HEMOGLOBIN 11.4 g/dL (12.0-16.0); LYMPHOCYTES % (AUTO) 6.7 %; MEAN CORPUSCULAR HEMOGLOBIN 24.8 pg (27.0-31.0); MEAN CORPUSCULAR VOLUME 82.8 fL (81.0-99.0); MEAN PLATELET VOLUME 9.8 fL (7.9-10.8); NEUTROPHILS % (AUTO) 83.5 %; PLT - PLATELET COUNT 452 10^3/uL (130-450); RED BLOOD COUNT 4.59 10^6/uL (4.20-5.40); RED CELL DISTRIBUTION WIDTH 17.2 % (12.0-15.0); WHITE BLOOD COUNT 33.2 x10^3/uL (4.8-10.8)
[2022-10-12 16:02] LABS: ABNORMAL LYMPHS % (MANUAL) 0 %
[2022-10-12 16:07] LABS: INR 1.3 (0.8-1.2); PT - PROTHROMBIN TIME 14.7 secs (9.9-12.6)
[2022-10-12] MEDS ORDERED: SODIUM CHLORIDE 0.9% 1,000 ML IV STA ×2 (16:11)
[2022-10-12 16:14] LABS: ALBUMIN/GLOBULIN RATIO 0.6 (1.0-2.2); BILIRUBIN,TOTAL 0.5 mg/dL (0.2-1.0); CALCIUM 8.5 mg/dL (8.5-10.3); CREATININE 0.3 mg/dL (0.4-1.0); PARTIAL THROMBOPLASTIN TIME 29.6 secs (24.9-33.3); POTASSIUM 2.9 mmol/L (3.5-5.0); TOTAL PROTEIN 8.3 g/dL (6.7-8.2)
[2022-10-12] MEDS ORDERED: NALOXONE 0.4 MG/ML VIAL IVP STA (16:15)
[2022-10-12 16:24] LABS: BAND NEUTROPHILS % (MANUAL) 1 %; DIFFERENTIAL COMMENT MANUAL DIFFERENTIAL; LYMPHOCYTES # (MANUAL) 2.7 10^3/uL (1.5-3.5); LYMPHOCYTES % (MANUAL) 8 %; MONOCYTES # (MANUAL) 2.3 10^3/uL (0.0-1.0); NEUTROPHILS # (MANUAL) 28.2 10^3/uL (1.5-6.6); PLATELET ESTIMATE, MANUAL INCREASED (>450,000) (NORMAL); PLATELET MORPHOLOGY NORMAL APPEARANCE (NORMAL); RBC MORPHOLOGY (MULTIPLE) 2+ ANISOCYTOSIS (NORMAL)
[2022-10-12 16:28] LABS: B. PARAPERTUSSIS- RESP PCR PAN NOT DETECTED; B. PERTUSSIS- RESP PCR PANEL NOT DETECTED; C. PNEUMONIAE- RESP PCR PANEL NOT DETECTED; CORONAVIRUS 229E-RESP PCR NOT DETECTED; CORONAVIRUS HKU1-RESP PCR NOT DETECTED; CORONAVIRUS NL63-RESP PCR NOT DETECTED; CORONAVIRUS OC43-RESP PCR NOT DETECTED; HUMAN METAPNEUMOVIRUS NOT DETECTED; INFLUENZA A- RESP PCR PANEL NOT DETECTED; INFLUENZA B - RESP PCR PANEL NOT DETECTED; M. PNEUMONIAE- RESP PCR PANEL NOT DETECTED; PARAINFLUENZA VIRUS 1 NOT DETECTED; PARAINFLUENZA VIRUS 2 NOT DETECTED; PARAINFLUENZA VIRUS 3 DETECTED; PARAINFLUENZA VIRUS 4 NOT DETECTED; RHINOVIRUS/ENTEROVIRUS NOT DETECTED; RSV- RESP PCR PANEL NOT DETECTED; SARS-CoV-2 -RESP PCR PANEL NOT DETECTED
[2022-10-12 17:27] LABS: BILIRUBIN,URINE NEGATIVE (NEGATIVE); GLUCOSE, URINE (UA) NEGATIVE (NEGATIVE); KETONES,URINE (UA) NEGATIVE (NEGATIVE); LEUKOCYTE ESTERASE, URINE LARGE (NEGATIVE); NITRITE,URINE POSITIVE (NEGATIVE); OCCULT BLOOD,URINE SMALL (NEGATIVE); PH,URINE 7.5 PH (5.0-7.5); PROTEIN,URINE 100 mg/dL (NEGATIVE); UROBILINOGEN,URINE 0.2 (NORMAL) E.U./dL (NORMAL)
[2022-10-12 17:32] LABS: CLARITY,URINE CLOUDY (CLEAR)
[2022-10-12 17:45] LABS: AMORPHOUS SEDIMENT,UR Few /LPF; BACTERIA,URINE Many /HPF (None Seen); SQUAMOUS EPITHELIAL CELL,UR FEW Squamous (<= Few); WBC,URINE >25 /HPF (0-5)
[2022-10-12] MEDS ORDERED: SODIUM CHLORIDE FLUSH 0.9% 10 ML SYRINGE IVP PRN (17:54)
[2022-10-12] MEDS ORDERED: ONDANSETRON 4 MG/2 ML VIAL IVP PRN (18:03)
[2022-10-12] MEDS ORDERED: SENNA 8.6 MG TABLET PO PRN (18:05)
[2022-10-12] MEDS ORDERED: CEFEPIME 1 GM in SODIUM CHLORIDE 0.9% MINIBAG 100 ML IV STA (18:08)
--- NOTE | 2022-10-12 18:12 | HISTORY & PHYSICAL EXAMINATION ---
Chief Complaint - Chief Complaint Chief Complaint: Obtunded, BIBA from halfway History of Present Illness - Admitted From Admitted From:: ED - History Obtained From History obtained from: ED provider and chart review - History of Present Illness HPI Comment/Other: 72-year-old female with history of MS with spastic paraplegia with a chronic indwelling Good and who is bed-bound, who presents from [facility] today with altered mental status. At [facility], the staff reported her temperature was 102 today. Her oxygen saturation was payton arently abnormal at the scene and EMS had her on 14L supplemental oxygen via rebreather mask. Upon presentation to the ER she was tachy at 120, BP 100/60, afebrile and saturation 98% on 14L. She was noted to have a fentanyl patch on. She was given Narcan in the ER which had minimal effect and she was turned down to 6L O2 via mask. In the ED work-up included CBC which showed a white blood cell count of 33, but Lactic Acid normal. She is COVID-negative but parainfluenza positive. Chest x-ray showed interstitial prominence so infiltrate versus pulmonary edema. A urine sample was white in color and strongly indicative of a UTI. Blood cultures were drawn and then she received iv Cefepime in the ER (based on her last urine cultures from Feb 2022, that grew Pseudomonas and E coli). The ED provider discussed her with me on the Hospitalist Team for admission for further treatment of sepsis from a UTI and hypoxia from parainfluenza infection. Her CODE BLUE status is DNR/DNI History - Past Medical History Cardiovascular: reports: High cholesterol Respiratory: reports: None Neuro: reports: CVA, Peripheral neuropathy, Multiple sclerosis Endocrine/Autoimmune: reports: Other GI: reports: Hemorrhoids, Other [employer] MAINTENA[employer]: reports: Fibroids, Other : reports: Incontinence, Chronic bladder infection HEENT: reports: Chronic vision loss Psych: reports: Depression, Anxiety Musculoskeletal: reports: Paraplegia, Other Derm: reports: Other MRSA Hx?: Yes - Past Surgical History General: reports: Colonoscopy, EGD Ortho: reports: Other - Family & Social History Family History: Mother: , Father: Family History Comment/Other: She cannot provide me with a family history. Review of [facility] shows mom to have had unlabeled "cancer" at her . Brother had renal cancer. Living arrangement: Assisted living Social History Notes: [place] was from [place], [place]Uncle[place] and on. Moved here when she met someone from [place] They were until his in February 2016. She resides at [facility] since 2018. She had a remote smoking history. Denied alcohol use. - Substance History Use: Uses substance without health or social issues: NONE - POLST Patient has POLST: Yes POLST Status: DNR (Advanced care planning. Patient does have D POA which is her son Adan, has a POLST in place with the OSIEL and selective treatments. She is quite thoughtful and pragmatic and wane benefits and burdens of medical interventions and appointments. We will continue to anticipate decline in the future,) Meds/Allgy - Home Medications Home Medications: Ambulatory Orders Medication Instructions Recorded Confirmed Cholecalciferol (Vitamin D3) 2,000 unit PO DAILY 01/28/18 10/12/22 [Vitamin D3] Calcium Carbonate [Tums (Calcium 1,000 mg PO Q4HR PRN 11/09/18 10/12/22 Carbonate 500mg)] DULoxetine [Cymbalta] 60 mg PO DAILY 11/09/18 10/12/22 Naloxone HCl 0.1 ml SLY PRN PRN 11/09/18 10/12/22 Sennosides [Senna Lax] 8.6 mg PO BID PRN 06/07/19 10/12/22 Albuterol Sulf [Ventolin Hfa 2 puffs INH Q4H PRN 08/23/20 10/12/22 Inhaler] Fluticasone/Salmeterol [Advair Hfa 1 puffs IH BID 12/30/20 10/12/22 115-21 Mcg Inhaler] Oxybutynin Chloride [Ditropan Xl] 10 mg PO DAILY 12/30/20 10/12/22 Potassium Chloride [Micro-K] 40 meq PO DAILY 12/30/20 03/17/22 hydroCHLOROthiazide 50 mg PO DAILY 12/30/20 10/12/22 [Hydrochlorothiazide] D-Mannose [Azo D-Mannose] 500 mg PO TIDWM 01/26/21 10/12/22 Mineral Oil [Mineral Oil Enema] 1 ea RC DAILY PRN 05/21/21 10/12/22 Saccharomyces Boulardii [Florastor] 250 mg PO BIDWM #10 cap 05/24/21 03/17/22 Acetaminophen [Aphen] 650 mg PO Q4H PRN 01/30/22 10/12/22 Ferrous Sulfate 325 mg PO DAILY 01/30/22 10/12/22 Atorvastatin [Lipitor] 40 mg PO QPM tablet 02/03/22 10/12/22 Baclofen [Lioresal] 10 mg PO TID tablet 02/03/22 10/12/22 Magnesium Citrate 296 ml PO ONCE #1 ea 03/07/22 03/17/22 polyethylene glycoL 3350(BULK) 17 gm PO DAILY PRN #238 gm 03/07/22 10/12/22 [Miralax] fentaNYL [Fentanyl 25mcg patch] 1 each TD Q3D 10/12/22 10/12/22 - Allergies Allergies/Adverse Reactions: Allergies Allergy/AdvReac Type Severity Reaction Status Date / Time nystatin Allergy Unknown Verified 10/12/22 15:35 Penicillins Allergy Unknown Verified 10/12/22 15:35 Review of Systems - All Other Systems All Other Systems: reports: Other (Unable to obtain because the patient is obtunded) Exam - Vital Signs Vital Signs: Vital Signs x48h Temp Pulse Resp BP Pulse Ox O2 Flow Rate 10/12/22 18:00 89 12 115/69 96 6 10/12/22 17:37 88 15 103/66 95 6 10/12/22 17:13 85 15 98/57 L 100 6 10/12/22 16:42 88 20 98 6 10/12/22 16:33 85 12 111/70 100 15 10/12/22 15:56 128 H 14 93/65 96 15 10/12/22 15:36 103 H 18 15 10/12/22 15:35 37.8 C 120 H 14 93/63 97 - Physical Exam General Appearance: positive: Lethargic (Obtunded, withdraws and moans to sternal rub) Eyes Bilateral: positive: No lid inflammation ENT: positive: Dry mucous membranes Neck: positive: Nml inspection, No JVD Respiratory: positive: No respiratory distress (RR is normal on a ventimask) Cardiovascular: positive: No murmur, Other (distant Heart sounds) Abdomen: positive: Non-tender, Nml bowel sounds, No distention Skin: positive: Warm, Dry Extremities: positive: Other (Trace pre-tibial edema) Neurologic/Psychiatric: positive: Other (Obtunded, has some spontaneous mvm of arms, and she withdraws, winces and moans to sternal rub painful stimulus) Sepsis Event Note (H) - Evaluation Possible source of Sepsis: positive: Pulmonary, Genitourinary - Sepsis Criteria Sepsis Criteria: Recorded Heart Rate greater than 90 bpm, Respiratory: Increasing oxygen requirements, WBC count greater than 12,000 or less than 4000, TIE CARRIER: altered consciousness (unrelated to primary neuro pathology) Conclusion/Plan - Problem List (1) Sepsis Conclusion/Plan: The patient is tachycardic, hypoxic, has worsened neurologic status in her baseline, abnormal urinalysis Plan: Continue with IV fluids Continue with empiric IV antibiotic, cefepime was started based on the last a bnormal urine culture Await blood and urine culture results Qualifiers: Sepsis type: sepsis due to unspecified organism Sepsis acute organ dysfunction status: without acute organ dysfunction Qualified Code(s): A41.9 - Sepsis, unspecified organism (2) Urinary tract infection Conclusion/Plan: She gets frequent UTIs, has a chronic Good Plan: As in #1 Qualifiers: Urinary tract infection type: catheter-associated UTI Indwelling urinary catheter type: indwelling urethral catheter Encounter type: initial encounter Qualified Code(s): T83.511A - Infection and inflammatory reaction due to indwelling urethral catheter, initial encounter; N39.0 - Urinary tract infect ion, site not specified (3) Chronic indwelling Good catheter Conclusion/Plan: Plan: Good will be changed out (4) Acute respiratory failure with hypoxia Conclusion/Plan: Chest x-ray shows either a viral pneumonia or pulmonary edema Plan: We will order continued supplemental oxygen with target O2 saturation 92% or higher, titrate down when possible to room air When she is more awake we will try to provide pulmonary toilet by ordering Mucinex (5) Parainfluenza infection Conclusion/Plan: Plan: As above in #4 (6) Hypokalemia Conclusion/Plan: Plan: We will order IV K riders and maintenance fluid with some potassium Follow BMP daily (7) Altered mental status Conclusion/Plan: She often presents with obtunded mental status when she has a fulminant infection Plan: Continue with IV fluids and IV antibiotics Supportive care (8) Spastic paraplegia secondary to multiple sclerosis Conclusion/Plan: Patient is now bedbound. During her last hospitalization which was about 9 months ago, she needs to be on pured food and mildly thickened liquids Plan: We will continue with her usual diet, bowel management, Good management and medications, once the pharmacist reconciled her meds - Lab Results Fish Bones: 10/13/22 06:00 10/13/22 06:00 - Diagnostic Imaging Results Diagnostic Imaging Results: positive: Final report reviewed - Other Other Results/Comments: Attestation: The patient is expected to be discharged or transferred to another facility within 96 hours: Yes
[2022-10-12] MEDS: DEXTROSE 5%-0.9% NACL 1,000 ML IV SCH (19:07)
[2022-10-12] MEDS: POTASSIUM CHLOR 10 MEQ/100 ML 10 MEQ/100 ML BAG IV SCH ×4 (19:11→22:14)
[2022-10-12] MEDS: BACLOFEN 10 MG TABLET PO SCH (22:13)
[2022-10-13] MEDS: SODIUM CHLORIDE FLUSH 0.9% 10 ML SYRINGE IVP SCH ×3 (01:29→17:21)
[2022-10-13] MEDS: CEFEPIME 1 GM in SODIUM CHLORIDE 0.9% MINIBAG 100 ML IV SCH ×3 (02:13→17:20)
[2022-10-13] MEDS: DEXTROSE 5%-0.9% NACL 1,000 ML IV SCH ×2 (04:54→16:28)
[2022-10-13] MEDS: ACETAMINOPHEN 325 MG TABLET PO PRN ×3 (04:56→20:42)
[2022-10-13 06:10] LABS: BASOPHILS % (AUTO) 0.5 %; EOSINOPHILS % (AUTO) 0.1 %; HCT - HEMATOCRIT 31.3 % (37.0-47.0); HGB - HEMOGLOBIN 9.4 g/dL (12.0-16.0); MEAN CORPUSCULAR HEMOGLOBIN 25.1 pg (27.0-31.0); MEAN CORPUSCULAR VOLUME 83.7 fL (81.0-99.0); MEAN PLATELET VOLUME 9.7 fL (7.9-10.8); MONOCYTES % (AUTO) 6.4 %; NEUTROPHILS % (AUTO) 85.8 %; PLT - PLATELET COUNT 375 10^3/uL (130-450); RED BLOOD COUNT 3.74 10^6/uL (4.20-5.40); RED CELL DISTRIBUTION WIDTH 17.2 % (12.0-15.0); WHITE BLOOD COUNT 34.5 x10^3/uL (4.8-10.8)
[2022-10-13 06:14] LABS: ABNORMAL LYMPHS % (MANUAL) 0 %
[2022-10-13 06:25] LABS: CALCIUM 7.6 mg/dL (8.5-10.3); CREATININE 0.3 mg/dL (0.4-1.0); MAGNESIUM 1.9 mg/dL (1.7-2.8); PHOSPHORUS 1.8 mg/dL (2.5-4.6)
[2022-10-13 06:26] LABS: BAND NEUTROPHILS % (MANUAL) 2 %; DIFFERENTIAL COMMENT MANUAL DIFFERENTIAL; LYMPHOCYTES % (MANUAL) 3 %; MONOCYTES # (MANUAL) 0.7 10^3/uL (0.0-1.0); NEUTROPHILS # (MANUAL) 32.8 10^3/uL (1.5-6.6); PLATELET ESTIMATE, MANUAL NORMAL (130-450,000) (NORMAL); PLATELET MORPHOLOGY NORMAL APPEARANCE (NORMAL); RBC MORPHOLOGY (MULTIPLE) 2+ ANISOCYTOSIS (NORMAL); WBC MORPHOLOGY (MULTIPLE) NORMAL APPEARANCE (NORMAL)
[2022-10-13] MEDS: BACLOFEN 10 MG TABLET PO SCH ×3 (06:50→21:46)
[2022-10-13] MEDS ORDERED: OXYBUTYNIN CHLORIDE 5 MG PO SCH (09:00)
[2022-10-13] MEDS: ENOXAPARIN 40 MG/0.4 ML SYRINGE SUBQ SCH (09:44)
[2022-10-13] MEDS ORDERED: POTASSIUM CHLOR 10 MEQ/100 ML 10 MEQ/100 ML BAG IV SCH (10:00)
[2022-10-13] MEDS: DULoxetine 30 MG CAPSULE PO SCH (10:52)
[2022-10-13] MEDS: SOLIFENACIN SUCCINATE 5 MG TABLET PO SCH (10:52)
[2022-10-13] MEDS ORDERED: POTASSIUM PHOSPHATE 15 MMOL in SODIUM CHLORIDE 0.9% 250 ML IV ONE (12:00)
--- NOTE | 2022-10-13 12:41 | PROVIDER PROGRESS NOTE ---
Assessment/Plan - Problem List (1) Sepsis Assessment/Plan: The patient was tachycardic, hypoxic, presented with worsened neurologic status on top of her baseline, and abnormal urinalysis Plan: Continue with IV fluids Continue with empiric IV antibiotic, cefepime was started based on the last abnormal urine culture bacteria and sens Await blood and urine culture results Qualifiers: Sepsis type: sepsis due to unspecified organism Sepsis acute organ dysfunction status: without acute organ dysfunction Qualified Code(s): A41.9 - Sepsis, unspecified organism (2) Catheter-associated Urinary tract infection Conclusion/Plan: She gets frequent UTIs, has a chronic Good Plan: As in #1 Qualifiers: Urinary tract infection type: catheter-associated UTI Indwelling urinary catheter type: indwelling urethral catheter Encounter type: initial encounter Qualified Code(s): T83.511A - Infection and inflammatory reaction due to indwelling urethral catheter, initial encounter; N39.0 - Urinary tract infection, site not specified (3) Chronic indwelling Good catheter Conclusion/Plan: Plan: Good was be changed out in ER (4) Acute respiratory failure with hypoxia Conclusion/Plan: Chest x-ray shows either a viral pneumonia or pulmonary edema Plan: Continue supplemental oxygen with target O2 saturation 92% or higher, titrate down when possible to room air When she is more awake we will try to provide pulmonary toilet by ordering Mucinex (5) Parainfluenza infection Conclusion/Plan: Plan: As above in #4 (6) Hypokalemia Conclusion/Plan: Plan: We will order IV K riders and maintenance fluid with some potassium Follow BMP daily (7) Altered mental status Conclusion/Plan: She often presents with obtunded mental status when she has a fulminant infection. Her mental status today is still lethargic today, minimally responsive to sternal rub. I ordered a swallowing screen by courtney GIBBS she did wake up was able to swallow Plan: Continue with IV fluids and IV antibiotics We will resume pured diet with thin liquids (8) Spastic paraplegia secondary to multiple sclerosis Conclusion/Plan: Patient is now bedbound. During her last hospitalization which was about 9 months ago, she needs to be on pured food and mildly thickened liquids Plan: We will continue with her usual diet resumed, bowel management, Good management and medications, once she can swallow her meds - Current Meds Current Meds: Current Medications Generic Name Dose Route Start Last Admin Trade Name Freq PRN Reason Stop Dose Admin Acetaminophen 650 mg 10/12/22 18:03 10/13/22 04:56 Acetaminophen 325 Mg Tablet PO 650 mg Q4HR PRN Administration Pain 1 to 4, or Fever Baclofen 10 mg 10/12/22 22:00 10/13/22 06:50 Baclofen 10 Mg Tablet PO 10 mg TID JOSE FRANCISCO Administration Duloxetine HCl 60 mg 10/13/22 09:00 10/13/22 10:52 Duloxetine 30 Mg Capsule PO 60 mg DAILY JOSE FRANCISCO Administration Enoxaparin Sodium 40 mg 10/13/22 09:00 10/13/22 09:44 Enoxaparin 40 Mg/0.4 Ml Syringe SUBQ 40 mg DAILY JOSE FRANCISCO Administration Dextrose/Sodium Chloride 1,000 mls @ 100 mls/hr 10/12/22 18:00 10/13/22 10:25 D5ns IV 100 mls/hr .Q10H JOSE FRANCISCO Infusion Cefepime HCl 1 gm/ Sodium 100 mls @ 200 mls/hr 10/13/22 02:00 10/13/22 10:12 Chloride IV Infused Q8H JOSE FRANCISCO Infusion Potassium Phosphate 15 mmol/ 255 mls @ 42.5 mls/hr 10/13/22 12:00 10/13/22 12:25 Sodium Chloride IV 10/13/22 17:59 42.5 mls/hr ONCE ONE Administration Sodium Chloride 10 ml 10/13/22 01:00 10/13/22 09:44 Sodium Chloride Flush 0.9% 10 Ml Syringe IVP 10 ml 0100,0900,1700 JOSE FRANCISCO Administration Solifenacin 10 mg 10/13/22 09:00 10/13/22 10:52 Solifenacin Succinate 5 Mg Tablet PO 10 mg DAILY JOSE FRANCISCO Administration - Lab Result Fish Bone Diagrams: 10/15/22 04:28 10/15/22 04:28 - Additional Planning My Orders: My Active Orders 10/12/22 17:54 Activity Orders [RC] Q2HR IO [RC] IOSHIFT Initiate Bowel Care Protocol [RC] .protocol Initiate Line Care Protocol [RC] QSHIFT Initiate Personal Care Protoco [RC] .protocol Oxygen Therapy [RC] .PRN Vital Signs [RC] Q4HR Sodium Chloride Flush 0.9% [Normal Saline Flush 0.9%] 10 ml IVP PRN PRN Code Status [OTHERS] Routine Condition of Patient [OTHERS] Routine DVT Prophylaxis [OTHERS] Routine 10/12/22 17:56 Daily Weight [RC] 0600 IV Insert [RC] .ONCE 10/12/22 18:00 Dextrose 5%-0.9% NaCl [D5ns] 1,000 ml IV 100 mls/hr 10/12/22 18:03 Initiate Secretion Clearance P [RC] .PROTOCOL Acetaminophen [Tylenol] 650 mg PO Q4HR PRN Ondansetron Inj [Zofran Inj] 4 mg IVP Q6HR PRN 10/12/22 18:05 Senna [Senokot] 8.6 mg PO BID PRN 10/12/22 22:00 Baclofen [Lioresal] 10 mg PO TID 10/13/22 01:00 Sodium Chloride Flush 0.9% [Normal Saline Flush 0.9%] 10 ml IVP 0100,0900,1700 10/13/22 02:00 Cefepime [Maxipime] 1 gm Sodium Chloride 0.9% Minibag [Normal Saline 0.9% Minibag] 100 ml IV Q8H 10/13/22 09:00 DULoxetine [Cymbalta] 60 mg PO DAILY Enoxaparin [Lovenox] 40 mg SUBQ DAILY Solifenacin Succinate [Vesicare] 10 mg PO DAILY 10/13/22 12:00 Potassium Phosphate 15 mmol Sodium Chloride 0.9% [Normal Saline 0.9%] 250 ml IV ONCE 10/13/22 12:38 Swallow Screen - Nursing [RC] ONCE DIET [NPO] [DIET] 10/14/22 05:00 BMP - BASIC METABOLIC PANEL [CHEM] DAILYLAB CBC - COMP BLD CT W/AUTO DIFF [HEME] DAILYLAB 10/15/22 05:00 BMP - BASIC METABOLIC PANEL [CHEM] DAILYLAB CBC - COMP BLD CT W/AUTO DIFF [HEME] DAILYLAB 10/16/22 05:00 BMP - BASIC METABOLIC PANEL [CHEM] DAILYLAB CBC - COMP BLD CT W/AUTO DIFF [HEME] DAILYLAB Subjective - Subjective Nursing Reports: Other (asleep, only moves hands occaisionally) Objective Vital Signs: Vital Signs - 24 hr 10/12/22 10/12/22 10/12/22 15:35 15:36 15:56 Temperature 37.8 C Heart Rate 120 H 103 H 128 H Heart Rate [ Brachial] Heart Rate [ Monitoring electrodes] Respiratory 14 18 14 Rate Blood Pressure 93/63 93/65 Blood Pressure [Right Brachial artery] O2 Saturation 97 96 If not protocol 15 15 : Oxygen Flow, liters/minute 10/12/22 10/12/22 10/12/22 16:33 16:42 17:13 Temperature Heart Rate 85 88 85 Heart Rate [ Brachial] Heart Rate [ Monitoring electrodes] Respiratory 12 20 15 Rate Blood Pressure 111/70 98/57 L Blood Pressure [Right Brachial artery] O2 Saturation 100 98 100 If not protocol 15 6 6 : Oxygen Flow, liters/minute 10/12/22 10/12/22 10/12/22 17:37 18:00 18:43 Temperature Heart Rate 88 89 Heart Rate [ Brachial] Heart Rate [ Monitoring electrodes] Respiratory 15 12 Rate Blood Pressure 103/66 115/69 Blood Pressure [Right Brachial artery] O2 Saturation 95 96 If not protocol 6 6 6 : Oxygen Flow, liters/minute 10/12/22 10/12/22 10/13/22 19:03 22:30 00:42 Temperature 36.1 C L 38.5 C H Heart Rate Heart Rate [ 117 H Brachial] Heart Rate [ 123 H Monitoring electrodes] Respiratory 16 20 Rate Blood Pressure Blood Pressure 111/68 110/49 L [Right Brachial artery] O2 Saturation 88 L 91 L If not protocol 6 6 6 : Oxygen Flow, liters/minute 10/13/22 10/13/22 10/13/22 02:20 04:46 06:46 Temperature 37.4 C 38.3 C H 36.7 C Heart Rate Heart Rate [ 93 123 H Brachial] Heart Rate [ Monitoring electrodes] Respiratory 20 21 Rate Blood Pressure Blood Pressure 128/66 [Right Brachial artery] O2 Saturation 94 96 If not protocol 6 6 : Oxygen Flow, liters/minute 10/13/22 10/13/22 10/13/22 06:53 07:00 08:00 Temperature 36.5 C Heart Rate Heart Rate [ 85 Brachial] Heart Rate [ Monitoring electrodes] Respiratory 20 22 Rate Blood Pressure Blood Pressure 98/42 L [Right Brachial artery] O2 Saturation 92 If not protocol 4 4 4 : Oxygen Flow, liters/minute 10/13/22 11:00 Temperature 36.9 C Heart Rate Heart Rate [ 88 Brachial] Heart Rate [ Monitoring electrodes] Respiratory 21 Rate Blood Pressure Blood Pressure 118/55 L [Right Brachial artery] O2 Saturation 92 If not protocol 4 : Oxygen Flow, liters/minute Oxygen O2 Source Nasal cannula Oxygen Flow Rate 6 I&O (Last 24 Hrs): Intake and Output Totals x24h 10/11/22 10/12/22 10/13/22 23:59 23:59 23:59 Intake Total 2490 1785.173 Output Total 15 100 Balance 2475 1685.173 General: Other (Obtunded, withdraws to pain, RN said she moves hands spontaneously) HEENT: Other (Has dry mucosa, mouth breathing. Is wearing O2 n.c.) Neuro: Other (Obtunded, some spontaneous muscle activity of UE, and withdraws to pain.) Cardiovascular: Regular rate, No murmurs Respiratory: No respiratory distress, Breath sounds nml Abdomen: Soft Genitourinary: Other (Has a Good cath) Extremities: No clubbing, Other (Trace pretibial edema) - Results Results: Laboratory Results WBC 34.5 x10^3/uL (4.8-10.8) H 10/13/22 06:00 RBC 3.74 10^6/uL (4.20-5.40) L 10/13/22 06:00 Hgb 9.4 g/dL (12.0-16.0) L 10/13/22 06:00 Hct 31.3 % (37.0-47.0) L 10/13/22 06:00 MCV 83.7 fL (81.0-99.0) 10/13/22 06:00 MCH 25.1 pg (27.0-31.0) L 10/13/22 06:00 MCHC 30.0 g/dL (32.0-36.0) L 10/13/22 06:00 RDW 17.2 % (12.0-15.0) H 10/13/22 06:00 Plt Count 375 10^3/uL (130-450) 10/13/22 06:00 MPV 9.7 fL (7.9-10.8) 10/13/22 06:00 Neut # (Auto) Not Reportable 10/13/22 06:00 Lymph # (Auto) Not Reportable 10/13/22 06:00 Morrison # (Auto) Not Reportable 10/13/22 06:00 Eos # (Auto) Not Reportable 10/13/22 06:00 Baso # (Auto) Not Reportable 10/13/22 06:00 Absolute Nucleated RBC Not Reportable 10/13/22 06:00 Total Counted 100 10/13/22 06:00 Band Neuts % (Manual) 2 % (0-10) 10/13/22 06:00 Abnorm Lymph % (Manual) 0 % 10/13/22 06:00 Nucleated RBC % Not Reportable 10/13/22 06:00 Neutrophils # (Manual) 32.8 10^3/uL (1.5-6.6) H 10/13/22 06:00 Lymphocytes # (Manual) 1.0 10^3/uL (1.5-3.5) L 10/13/22 06:00 Monocytes # (Manual) 0.7 10^3/uL (0.0-1.0) 10/13/22 06:00 Eosinophils # (Manual) 0.0 10^3/uL (0-0.7) 10/13/22 06:00 Basophils # (Manual) 0.0 10^3/uL (0-0.1) 10/13/22 06:00 Differential Comment MANUAL DIFFERENTIAL 10/13/22 06:00 WBC Morphology NORMAL APPEARANCE (NORMAL) 10/13/22 06:00 Platelet Estimate NORMAL (130-450,000) (NORMAL) 10/13/22 06:00 Platelet Morphology NORMAL APPEARANCE (NORMAL) 10/13/22 06:00 RBC Morph Micro Appear 2+ ANISOCYTOSIS (NORMAL) 10/13/22 06:00 PT 14.7 secs (9.9-12.6) H 10/12/22 15:50 INR 1.3 (0.8-1.2) H 10/12/22 15:50 APTT 29.6 secs (24.9-33.3) 10/12/22 15:50 Sodium 138 mmol/L (135-145) 10/13/22 06:00 Potassium 3.0 mmol/L (3.5-5.0) L 10/13/22 06:00 Chloride 101 mmol/L (101-111) 10/13/22 06:00 Carbon Dioxide 29 mmol/L (21-32) 10/13/22 06:00 Anion Gap 8.0 (6-13) 10/13/22 06:00 BUN 14 mg/dL (6-20) 10/13/22 06:00 Creatinine 0.3 mg/dL (0.4-1.0) L 10/13/22 06:00 Estimated GFR (MDRD) 217 (>89) 10/13/22 06:00 Glucose 144 mg/dL (70-100) H 10/13/22 06:00 Lactic Acid 1.0 mmol/L (0.5-2.2) 10/12/22 15:50 Calcium 7.6 mg/dL (8.5-10.3) L 10/13/22 06:00 Phosphorus 1.8 mg/dL (2.5-4.6) L 10/13/22 06:00 Magnesium 1.9 mg/dL (1.7-2.8) 10/13/22 06:00 Total Bilirubin 0.5 mg/dL (0.2-1.0) 10/12/22 15:50 AST 14 IU/L (10-42) 10/12/22 15:50 ALT 10 IU/L (10-60) 10/12/22 15:50 Alkaline Phosphatase 83 IU/L (42-121) 10/12/22 15:50 Total Protein 8.3 g/dL (6.7-8.2) H 10/12/22 15:50 Albumin 3.0 g/dL (3.2-5.5) L 10/12/22 15:50 Globulin 5.3 g/dL (2.1-4.2) H 10/12/22 15:50 Albumin/Globulin Ratio 0.6 (1.0-2.2) L 10/12/22 15:50 Lipase 24 U/L (22-51) 10/12/22 15:50 Urine Color YELLOW 10/12/22 17:15 Urine Clarity CLOUDY (CLEAR) 10/12/22 17:15 Urine pH 7.5 PH (5.0-7.5) 10/12/22 17:15 Ur Specific Boyce 1.015 (1.002-1.030) 10/12/22 17:15 Urine Protein 100 mg/dL (NEGATIVE) H 10/12/22 17:15 Urine Glucose (UA) NEGATIVE mg/dL (NEGATIVE) 10/12/22 17:15 Urine Ketones NEGATIVE mg/dL (NEGATIVE) 10/12/22 17:15 Urine Occult Blood SMALL (NEGATIVE) H 10/12/22 17:15 Urine Nitrite POSITIVE (NEGATIVE) H 10/12/22 17:15 Urine Bilirubin NEGATIVE (NEGATIVE) 10/12/22 17:15 Urine Urobilinogen 0.2 (NORMAL) E.U./dL (NORMAL) 10/12/22 17:15 Ur Leukocyte Esterase LARGE (NEGATIVE) H 10/12/22 17:15 Urine RBC 6-10 /HPF (0-5) H 10/12/22 17:15 Urine WBC >25 /HPF (0-5) H 10/12/22 17:15 Ur Squamous Epith Cells FEW Squamous (<= Few) 10/12/22 17:15 Amorphous Sediment Few /LPF 10/12/22 17:15 Urine Bacteria Many /HPF (None Seen) H 10/12/22 17:15 Ur Microscopic Review INDICATED 10/12/22 17:15 Urine Culture Comments INDICATED 10/12/22 17:15 Nasal Adenovirus (PCR) NOT DETECTED 10/12/22 15:30 Nasal B. parapertussis DNA (PCR) NOT DETECTED 10/12/22 15:30 Nasal Coronavir 229E PCR NOT DETECTED 10/12/22 15:30 Nasal Coronavir HKU1 PCR NOT DETECTED 10/12/22 15:30 Nasal Coronavir NL63 PCR NOT DETECTED 10/12/22 15:30 Nasal Coronavir OC43 PCR NOT DETECTED 10/12/22 15:30 Nasal Enterovir/Rhinovir PCR NOT DETECTED 10/12/22 15:30 Nasal Influenza B PCR NOT DETECTED 10/12/22 15:30 Nasal Influenza A PCR NOT DETECTED 10/12/22 15:30 Nasal Parainfluen 1 PCR NOT DETECTED 10/12/22 15:30 Nasal Parainfluen 2 PCR NOT DETECTED 10/12/22 15:30 Nasal Parainfluen 3 PCR DETECTED A 10/12/22 15:30 Nasal Parainfluen 4 PCR NOT DETECTED 10/12/22 15:30 Nasal RSV (PCR) NOT DETECTED 10/12/22 15:30 Nasal B.pertussis DNA PCR NOT DETECTED 10/12/22 15:30 Nasal C.pneumoniae (PCR) NOT DETECTED 10/12/22 15:30 Morgan Human Metapneumo PCR NOT DETECTED 10/12/22 15:30 Nasal M.pneumoniae (PCR) NOT DETECTED 10/12/22 15:30 Nasal SARS-CoV-2 (PCR) NOT DETECTED 10/12/22 15:30 - Procedures Procedures: Procedures EXCISION OF DUODENUM, ENDO, DIAGN (05/20/21) EXCISION OF ESOPHAGOGASTRIC JUNCTION, ENDO, DIAGN (05/20/21) EXCISION OF ESOPHAGUS, ENDO, DIAGN (05/20/21) EXCISION OF STOMACH, ENDO, DIAGN (05/20/21) INSERTION OF INFUSION DEV INTO SUP VENA CAVA, PERC APPROACH (05/20/21) INSPECTION OF LOWER INTESTINAL TRACT, ENDO (05/04/18) Sepsis Event Note (H) - Evaluation Possible source of Sepsis: positive: Pulmonary, Genitourinary - Sepsis Criteria Sepsis Criteria: Recorded Heart Rate greater than 90 bpm, Respiratory: Increasing oxygen requirements, WBC count greater than 12,000 or less than 4000, TELLERS SUPERVISOR: altered consciousness (unrelated to primary neuro pathology)
[2022-10-13] MEDS ORDERED: ZINC OXIDE 20% OINT 30 GM TUBE TOP PRN (14:56)
--- NOTE | 2022-10-13 17:51 | PHARMACY PROGRESS NOTE ---
- Best Possible Medication History Admit Date and Time: 10/12/22 9992 Processed by: Pharmacy Medication History completed: Yes Secondary Source(s): Facility MAR as ONLY source As the person ultimately responsible for medication therapy, providers are able to order a medication from an existing home medication list in [facility] via the "Reconcile Routine" prior to Confirmation of that medication by support services manager. Such practice is discouraged except when the physician, in their clinical judgment, deems that a medical need exists for a medication without regard to previous use.
[2022-10-14] MEDS: SODIUM CHLORIDE FLUSH 0.9% 10 ML SYRINGE IVP SCH ×3 (01:12→17:09)
[2022-10-14] MEDS: CEFEPIME 1 GM in SODIUM CHLORIDE 0.9% MINIBAG 100 ML IV SCH ×3 (01:30→18:18)
[2022-10-14] MEDS: DEXTROSE 5%-0.9% NACL 1,000 ML IV SCH ×2 (03:35→15:59)
[2022-10-14] MEDS: BACLOFEN 10 MG TABLET PO SCH ×2 (05:36→13:42)
[2022-10-14 06:02] LABS: BASOPHILS % (AUTO) 0.4 %; EOSINOPHILS % (AUTO) 1.3 %; HCT - HEMATOCRIT 32.4 % (37.0-47.0); HGB - HEMOGLOBIN 9.5 g/dL (12.0-16.0); MEAN CORPUSCULAR HEMOGLOBIN 25.1 pg (27.0-31.0); MEAN CORPUSCULAR HGB CONC 29.3 g/dL (32.0-36.0); MEAN CORPUSCULAR VOLUME 85.5 fL (81.0-99.0); MONOCYTES % (AUTO) 5.2 %; NEUTROPHILS % (AUTO) 83.6 %; PLT - PLATELET COUNT 384 10^3/uL (130-450); RED BLOOD COUNT 3.79 10^6/uL (4.20-5.40); RED CELL DISTRIBUTION WIDTH 17.3 % (12.0-15.0); WHITE BLOOD COUNT 30.1 x10^3/uL (4.8-10.8)
[2022-10-14 06:12] LABS: ABNORMAL LYMPHS % (MANUAL) 0 %
[2022-10-14 06:14] LABS: CALCIUM 7.5 mg/dL (8.5-10.3); CREATININE 0.3 mg/dL (0.4-1.0); POTASSIUM 2.6 mmol/L (3.5-5.0)
[2022-10-14 06:24] LABS: BAND NEUTROPHILS % (MANUAL) 1 %; DIFFERENTIAL COMMENT MANUAL DIFFERENTIAL; EOSINOPHILS # (MANUAL) 0.3 10^3/uL (0-0.7); LYMPHOCYTES # (MANUAL) 1.8 10^3/uL (1.5-3.5); LYMPHOCYTES % (MANUAL) 6 %; MONOCYTES # (MANUAL) 1.2 10^3/uL (0.0-1.0); NEUTROPHILS # (MANUAL) 26.8 10^3/uL (1.5-6.6); PLATELET ESTIMATE, MANUAL NORMAL (130-450,000) (NORMAL); PLATELET MORPHOLOGY NORMAL APPEARANCE (NORMAL); RBC MORPHOLOGY (MULTIPLE) NORMAL APPEARANCE (NORMAL); WBC MORPHOLOGY (MULTIPLE) NORMAL APPEARANCE (NORMAL)
[2022-10-14] MEDS: POTASSIUM CHLOR 10 MEQ/100 ML 10 MEQ/100 ML BAG IV SCH ×5 (06:58→13:42)
[2022-10-14] MEDS: DULoxetine 30 MG CAPSULE PO SCH (08:20)
[2022-10-14] MEDS: ENOXAPARIN 40 MG/0.4 ML SYRINGE SUBQ SCH (08:20)
[2022-10-14] MEDS: SOLIFENACIN SUCCINATE 5 MG TABLET PO SCH (08:21)
[2022-10-14] MEDS: ACETAMINOPHEN 325 MG TABLET PO PRN ×2 (10:49→15:41)
--- NOTE | 2022-10-14 16:25 | PROVIDER PROGRESS NOTE ---
Subjective - Prog Note Date Prog Note Date: 10/14/22 Prog Note Time: 19:15 - Subjective Pt reports feeling: Improved Subjective: While she is more awake, alert. She is still spiking temps as of this morning. She has no new complaints. Current Medications - Current Medications Current Medications: Active Medications Acetaminophen (Acetaminophen 325 Mg Tablet) 650 mg PO Q4HR PRN PRN Reason: Pain 1 to 4, or Fever Last Admin: 10/14/22 15:41 Dose: 650 mg Duloxetine HCl (Duloxetine 30 Mg Capsule) 60 mg PO DAILY [facility] Last Admin: 10/14/22 08:20 Dose: 60 mg Enoxaparin Sodium (Enoxaparin 40 Mg/0.4 Ml Syringe) 40 mg SUBQ DAILY [facility] Last Admin: 10/14/22 08:20 Dose: 40 mg Dextrose/Sodium Chloride (D5ns) 1,000 mls @ 100 mls/hr IV .Q10H [facility] Last Admin: 10/14/22 15:59 Dose: 100 mls/hr Cefepime HCl 1 gm/ Sodium (Chloride) 100 mls @ 200 mls/hr IV Q8H [facility] Last Admin: 10/14/22 18:18 Dose: 200 mls/hr Multi-Ingredient Ointment (Zinc Oxide 20% Oint 30 Gm Tube) 1 applic TOP PRN PRN PRN Reason: Skin Care Multivitamins/Minerals (Multivitamin W/Minerals Tablet) 1 tab PO DAILYWM [facility] Last Admin: 10/14/22 17:09 Dose: 1 tab Ondansetron HCl (Ondansetron 4 Mg/2 Ml Vial) 4 mg IVP Q6HR PRN PRN Reason: Nausea / Vomiting Senna (Senna 8.6 Mg Tablet) 8.6 mg PO BID PRN PRN Reason: Constipation Sodium Chloride (Sodium Chloride Flush 0.9% 10 Ml Syringe) 10 ml IVP PRN PRN PRN Reason: NEEDED PER PROVIDER ORDERS Sodium Chloride (Sodium Chloride Flush 0.9% 10 Ml Syringe) 10 ml IVP 0100,0900,1700 [facility] Last Admin: 10/14/22 17:09 Dose: Not Given Solifenacin (Solifenacin Succinate 5 Mg Tablet) 10 mg PO DAILY [facility] Last Admin: 10/14/22 08:21 Dose: 10 mg Cholecalciferol (Vitamin D3) [Vitamin D3] 2,000 unit PO DAILY 01/28/18 Calcium Carbonate [Tums (Calcium Carbonate 500mg)] 1,000 mg PO Q4HR PRN 11/09/18 DULoxetine [Cymbalta] 60 mg PO DAILY 11/09/18 Naloxone HCl 0.1 ml SLY PRN PRN 11/09/18 Sennosides [Senna Lax] 8.6 mg PO BID PRN 06/07/19 Albuterol Sulf [Ventolin Hfa Inhaler] 2 puffs INH Q4H PRN 08/23/20 Fluticasone/Salmeterol [Advair Hfa 115-21 Mcg Inhaler] 1 puffs INH BID 12/30/20 Oxybutynin Chloride [Ditropan Xl] 10 mg PO DAILY 12/30/20 Potassium Chloride [Micro-K] 40 meq PO DAILY 12/30/20 hydroCHLOROthiazide [Hydrochlorothiazide] 50 mg PO DAILY 12/30/20 D-Mannose [Azo D-Mannose] 500 mg PO TIDWM 01/26/21 Mineral Oil [Mineral Oil Enema] 1 ea RC DAILY PRN 05/21/21 Acetaminophen [Aphen] 650 mg PO Q4H PRN 01/30/22 Ferrous Sulfate 325 mg PO DAILYWM 01/30/22 fentaNYL [Fentanyl 25mcg patch] 1 each TD Q3D 10/12/22 Docusate Sodium [Dulcolax Stool Softener] 100 mg PO 0800,1200 10/13/22 guaiFENesin [Chest Congestion Relief] 5 ml PO Q5H PRN 10/13/22 polyethylene glycoL 3350 [Miralax] 17 g PO DAILY 10/13/22 Objective - Vital Signs/Intake & Output Reviewed Vital Signs: Yes Vital Signs: Vital Signs x48h Temp Pulse Pulse Resp BP Pulse Ox O2 Flow Rate 10/14/22 16:07 36.6 C 83 131/58 H 93 10/14/22 13:41 36.9 C 90 22 116/57 L 94 10/14/22 10:18 38.5 C H 95 92 10/14/22 08:44 99 19 94 10/14/22 08:36 95 100 1 10/14/22 08:29 37.8 C 104 H 18 121/52 L 94 3 Intake & Output: Intake & Output 10/11/22 10/12/22 10/13/22 10/14/22 23:59 23:59 23:59 23:59 Intake Total 2490 4138.506 2511.667 Output Total 15 400 1700 Balance 2475 3738.506 811.667 - Objective General Appearance: positive: Mild distress (She gets short of breath easily), Other (She is very sleepy, but responds to my voice. She knows that she is in the hospital. But immediately falls back asleep. Very forgetful.) Eyes Bilateral: positive: PERRL, EOMI ENT: positive: No signs of dehydration Neck: positive: No JVD. negative: Stiff neck Respiratory: positive: Breath sounds nml (Slightly fast, breathy. But no wheezing or rhonchi) Cardiovascular: positive: Regular rate & rhythm, Systolic murmur Abdomen: positive: Non-tender, No organomegaly, Nml bowel sounds, No distention Skin: positive: Warm, Dry Extremities: positive: Full ROM, Pedal edema Neurologic/Psychiatric: positive: CN's nml (2-12), Motor nml, Disoriented to time (Very forgetful elderly person. Easy to arouse, but falls asleep very easily in mid conversation.) - Lab Results Fish Bones: 10/14/22 05:44 10/14/22 05:44 Other Labs: Lab Results x24hrs 10/14/22 10/14/22 Range/Units 05:44 05:44 WBC 30.1 H (4.8-10.8) x10^3/uL RBC 3.79 L (4.20-5.40) 10^6/uL Hgb 9.5 L (12.0-16.0) g/dL Hct 32.4 L (37.0-47.0) % MCV 85.5 (81.0-99.0) fL MCH 25.1 L (27.0-31.0) pg MCHC 29.3 L (32.0-36.0) g/dL RDW 17.3 H (12.0-15.0) % Plt Count 384 (130-450) 10^3/uL MPV 10.0 (7.9-10.8) fL Neut # (Auto) Not Reportable Lymph # (Auto) Not Reportable [place] # (Auto) Not Reportable Eos # (Auto) Not Reportable Baso # (Auto) Not Reportable Absolute Nucleated RBC Not Reportable Total Counted 100 Band Neuts % (Manual) 1 (0 - 10) % Abnorm Lymph % (Manual) 0 % Nucleated RBC % Not Reportable Neutrophils # (Manual) 26.8 H (1.5-6.6) 10^3/uL Lymphocytes # (Manual) 1.8 (1.5-3.5) 10^3/uL Monocytes # (Manual) 1.2 H (0.0-1.0) 10^3/uL Eosinophils # (Manual) 0.3 (0-0.7) 10^3/uL Basophils # (Manual) 0.0 (0-0.1) 10^3/uL Differential Comment MANUAL DIFFERENTIAL WBC Morphology NORMAL APPEARANCE (NORMAL) Platelet Estimate NORMAL (130-450,000) (NORMAL) Platelet Morphology NORMAL APPEARANCE (NORMAL) RBC Morph Micro Appear NORMAL APPEARANCE (NORMAL) Sodium 139 (135-145) mmol/L Potassium 2.6 L (3.5-5.0) mmol/L Chloride 106 (101-111) mmol/L Carbon Dioxide 28 (21-32) mmol/L Anion Gap 5.0 L (6-13) BUN 11 (6-20) mg/dL Creatinine 0.3 L (0.4-1.0) mg/dL Estimated GFR (MDRD) 217 (>89) Glucose 130 H (70-100) mg/dL Calcium 7.5 L (8.5-10.3) mg/dL ABX Reporting Has patient been on IV antibiotics over the past 48 hours?: Yes Sepsis Event Note (H) - Evaluation Possible source of Sepsis: positive: Pulmonary, Genitourinary - Sepsis Criteria Sepsis Criteria: Recorded Heart Rate greater than 90 bpm, Respiratory: Increasing oxygen requirements, WBC count greater than 12,000 or less than 4000, PRODUCT OPERATIONS ASSOCIATE: altered consciousness (unrelated to primary neuro pathology) Assessment/Plan - Problem List (1) Sepsis Impression: The patient is tachycardic, hypoxic, has worsened neurologic status in her baseline, abnormal urinalysis . She had a blood pressure of 93 systolic on admission. Since IV fluids and IV antibiotics, her blood pressure has become better. There are still moments of the day where she is 93 systolic but is usually 118-127 systolic. Hypoxia has resolved and she is on room air today. And obtundation has resolved and she is more appropriate, awake, and alert today. However she continues to be intermittently febrile. At 10:18 in the morning she was 38.5. Blood pressure was stable with this. Blood cultures have been negative. Urine culture is still in progress with results to follow. She is day #3 of cefepime. Plan: Continue with IV fluids Continue with empiric IV antibiotic, cefepime was started based on the last abnormal urine culture Await urine culture result Qualifiers: Sepsis type: sepsis due to unspecified organism Sepsis acute organ dysfunction status: without acute organ dysfunction Qualified Code(s): A41.9 - Sepsis, unspecified organism (2) Catheter-associated Urinary tract infection Conclusion/Plan: She gets frequent UTIs, has a chronic Good. Culture is pending. Plan: As in #1 Qualifiers: Urinary tract infection type: catheter-associated UTI Indwelling urinary catheter type: indwelling urethral catheter Encounter type: initial encounter Qualified Code(s): T83.511A - Infection and inflammatory reaction due to indwelling urethral catheter, initial encounter; N39.0 - Urinary tract infection, site not specified (3) Chronic indwelling Good catheter Conclusion/Plan: Plan: Good changed out (4) Acute respiratory failure with hypoxia Conclusion/Plan: Chest x-ray shows either a viral pneumonia or pulmonary edema Plan: We will order continued supplemental oxygen with target O2 saturation 92% or higher, titrate down when possible to room air When she is more awake we will try to provide pulmonary toilet by ordering Mucinex (5) Parainfluenza infection Conclusion/Plan: Plan: As above in #4 (6) Hypokalemia Conclusion/Plan: Plan: We will order IV K riders and maintenance fluid with some potassium Follow BMP daily (7) Altered mental status Conclusion/Plan: She often presents with obtunded mental status when she has a fulminant infection. her mental status today is still lethargic today, minimally responsive to sternal rub. I ordered a swallowing screen by RN that she did wake up was able to swallow Plan: Continue with IV fluids and IV antibiotics We will resume pured diet with thin liquids (8) Spastic paraplegia secondary to multiple sclerosis Conclusion/Plan: Patient is now bedbound. During her last hospitalization which was about 9 devang hs ago, she needs to be on pured food and mildly thickened liquids Plan: We will continue with her usual diet, bowel management, Good management and medications, once the pharmacist reconciled her meds
[2022-10-14] MEDS: MULTIVITAMIN W/MINERALS TABLET PO SCH (17:09)
[2022-10-15] MEDS: SODIUM CHLORIDE FLUSH 0.9% 10 ML SYRINGE IVP SCH ×3 (00:29→16:57)
[2022-10-15] MEDS: ACETAMINOPHEN 325 MG TABLET PO PRN ×4 (00:32→21:07)
[2022-10-15] MEDS: DEXTROSE 5%-0.9% NACL 1,000 ML IV SCH (02:33)
[2022-10-15] MEDS: CEFEPIME 1 GM in SODIUM CHLORIDE 0.9% MINIBAG 100 ML IV SCH ×3 (02:33→17:45)
[2022-10-15 04:39] LABS: BASOPHILS # (AUTO) 0.1 10^3/uL (0.0-0.1); BASOPHILS % (AUTO) 0.5 %; EOSINOPHILS # (AUTO) 0.5 10^3/uL (0.0-0.7); EOSINOPHILS % (AUTO) 2.7 %; HGB - HEMOGLOBIN 9.7 g/dL (12.0-16.0); LYMPHOCYTES # (AUTO) 2.9 10^3/uL (1.5-3.5); LYMPHOCYTES % (AUTO) 17.1 %; MEAN CORPUSCULAR HEMOGLOBIN 24.7 pg (27.0-31.0); MEAN CORPUSCULAR HGB CONC 29.4 g/dL (32.0-36.0); MEAN PLATELET VOLUME 9.5 fL (7.9-10.8); MONOCYTES # (AUTO) 1.1 10^3/uL (0.0-1.0); MONOCYTES % (AUTO) 6.6 %; NEUTROPHILS # (AUTO) 12.4 10^3/uL (1.5-6.6); NEUTROPHILS % (AUTO) 72.5 %; PLT - PLATELET COUNT 440 10^3/uL (130-450); RED BLOOD COUNT 3.93 10^6/uL (4.20-5.40); RED CELL DISTRIBUTION WIDTH 17.2 % (12.0-15.0); WHITE BLOOD COUNT 17.2 x10^3/uL (4.8-10.8)
[2022-10-15 04:47] LABS: CALCIUM 7.8 mg/dL (8.5-10.3); CREATININE 0.3 mg/dL (0.4-1.0); POTASSIUM 2.8 mmol/L (3.5-5.0)
[2022-10-15] MEDS: POTASSIUM CHLOR 10 MEQ/100 ML 10 MEQ/100 ML BAG IV SCH ×6 (08:29→17:34)
[2022-10-15] MEDS: MULTIVITAMIN W/MINERALS TABLET PO SCH (08:29)
[2022-10-15] MEDS: SOLIFENACIN SUCCINATE 5 MG TABLET PO SCH (08:30)
[2022-10-15] MEDS: ENOXAPARIN 40 MG/0.4 ML SYRINGE SUBQ SCH (08:30)
[2022-10-15] MEDS: DULoxetine 30 MG CAPSULE PO SCH (08:30)
--- NOTE | 2022-10-15 11:18 | PROVIDER PROGRESS NOTE ---
Subjective - Prog Note Date Prog Note Date: 10/15/22 Prog Note Time: 11:16 - Subjective Pt reports feeling: Improved Subjective: She says that she feels "okay". Her mind is clearing, she does not feel like she is nearly as foggy or as confused as she was even yesterday. She lives at a senior care facility, and has multiple sclerosis with spastic paraplegia. Chronic indwelling Good catheter. Most of her time is spent in bed but she is usually able to transfer. Here she is lost a lot of ground. She finds that her upper extremity strength has diminished considerably. She does not have the strength to just reposition herself in bed and relies on the nurses. She says that she can sometimes pull herself upright to be able to then use her arms and hands to transfer to a wheelchair from her bed. But she cannot do that now. She asked if she could please work with physical therapy for that. Current Medications - Current Medications Current Medications: Active Medications Acetaminophen (Acetaminophen 325 Mg Tablet) 650 mg PO Q4HR PRN PRN Reason: Pain 1 to 4, or Fever Last Admin: 10/15/22 00:32 Dose: 650 mg Duloxetine HCl (Duloxetine 30 Mg Capsule) 60 mg PO DAILY [facility] Last Admin: 10/15/22 08:30 Dose: 60 mg Enoxaparin Sodium (Enoxaparin 40 Mg/0.4 Ml Syringe) 40 mg SUBQ DAILY [facility] Last Admin: 10/15/22 08:30 Dose: 40 mg Dextrose/Sodium Chloride (D5ns) 1,000 mls @ 100 mls/hr IV .Q10H [facility] Last Infusion: 10/15/22 08:30 Dose: 20 mls/hr Cefepime HCl 1 gm/ Sodium (Chloride) 100 mls @ 200 mls/hr IV Q8H [facility] Last Infusion: 10/15/22 10:18 Dose: Infused Potassium Chloride (Potassium Chloride) 10 meq in 100 mls @ 100 mls/hr IV Q1H [facility] Stop: 10/15/22 13:59 Last Admin: 10/15/22 10:22 Dose: 80 mls/hr Multi-Ingredient Ointment (Zinc Oxide 20% Oint 30 Gm Tube) 1 applic TOP PRN PRN PRN Reason: Skin Care Multivitamins/Minerals (Multivitamin W/Minerals Tablet) 1 tab PO DAILYWM [facility] Last Admin: 10/15/22 08:29 Dose: 1 tab Ondansetron HCl (Ondansetron 4 Mg/2 Ml Vial) 4 mg IVP Q6HR PRN PRN Reason: Nausea / Vomiting Senna (Senna 8.6 Mg Tablet) 8.6 mg PO BID PRN PRN Reason: Constipation Sodium Chloride (Sodium Chloride Flush 0.9% 10 Ml Syringe) 10 ml IVP PRN PRN PRN Reason: NEEDED PER PROVIDER ORDERS Sodium Chloride (Sodium Chloride Flush 0.9% 10 Ml Syringe) 10 ml IVP 0100,090 0,1700 [facility] Last Admin: 10/15/22 08:30 Dose: Not Given Solifenacin (Solifenacin Succinate 5 Mg Tablet) 10 mg PO DAILY [facility] Last Admin: 10/15/22 08:30 Dose: 10 mg Cholecalciferol (Vitamin D3) [Vitamin D3] 2,000 unit PO DAILY 01/28/18 Calcium Carbonate [Tums (Calcium Carbonate 500mg)] 1,000 mg PO Q4HR PRN 11/09/18 DULoxetine [Cymbalta] 60 mg PO DAILY 11/09/18 Naloxone HCl 0.1 ml SLY PRN PRN 11/09/18 Sennosides [Senna Lax] 8.6 mg PO BID PRN 06/07/19 Albuterol Sulf [Ventolin Hfa Inhaler] 2 puffs INH Q4H PRN 08/23/20 Fluticasone/Salmeterol [Advair Hfa 115-21 Mcg Inhaler] 1 puffs INH BID 12/30/20 Oxybutynin Chloride [Ditropan Xl] 10 mg PO DAILY 12/30/20 Potassium Chloride [Micro-K] 40 meq PO DAILY 12/30/20 hydroCHLOROthiazide [Hydrochlorothiazide] 50 mg PO DAILY 12/30/20 D-Mannose [Azo D-Mannose] 500 mg PO TIDWM 01/26/21 Mineral Oil [Mineral Oil Enema] 1 ea RC DAILY PRN 05/21/21 Acetaminophen [Aphen] 650 mg PO Q4H PRN 01/30/22 Ferrous Sulfate 325 mg PO DAILYWM 01/30/22 fentaNYL [Fentanyl 25mcg patch] 1 each TD Q3D 10/12/22 Docusate Sodium [Dulcolax Stool Softener] 100 mg PO 0800,1200 10/13/22 guaiFENesin [Chest Congestion Relief] 5 ml PO Q5H PRN 10/13/22 polyethylene glycoL 3350 [Miralax] 17 g PO DAILY 10/13/22 Baclofen [Lioresal Intrathecal] 1,341.4 mcg IT DAILY 10/15/22 Objective - Vital Signs/Intake & Output Reviewed Vital Signs: Yes Vital Signs: Vital Signs x48h Temp Pulse Resp BP Pulse Ox 10/15/22 09:00 36.3 C L 109 H 18 137/86 H 95 10/15/22 04:25 36.8 C 89 18 142/88 H 97 Intake & Output: Intake & Output 10/12/22 10/13/22 10/14/22 10/15/22 23:59 23:59 23:59 23:59 Intake Total 2490 4138.506 2731.667 2014 Output Total 15 400 2400 1275 Balance 2475 3738.506 331.667 740 - Objective General Appearance: positive: Alert, Other (Phlegmy conversation. She is eating and drinking, food will get stuck in her throat and she coughs it up.) Eyes Bilateral: positive: PERRL, EOMI, Other (Her eyelids are asymmetrical. She said that she has had eyelid surgery) ENT: positive: No signs of dehydration Neck: positive: No JVD. negative: Stiff neck Respiratory: positive: No respiratory distress, Rhonchi (Right upper lung that clear with cough) Cardiovascular: positive: Regular rate & rhythm Abdomen: positive: Non-tender, No organomegaly, Nml bowel sounds, No distention, Other (Baclofen pump in the left lower quadrant.) Skin: positive: Warm, Dry, Pallor Extremities: positive: Pedal edema (Mild.). negative: Full ROM (Legs do not move much. She is able to use her arms to feed herself, cut food, and reposition the upper blankets.) Neurologic/Psychiatric: positive: Oriented x3, CN's nml (2-12). negative: Motor nml (Spastic paraplegia, mainly affecting lower extremities) - Lab Results Fish Bones: 10/15/22 04:28 10/15/22 04:28 Other Labs: Lab Results x24hrs 03/29/23 03/29/23 Range/Units 04:28 04:28 WBC 17.2 H (4.8-10.8) x10^3/uL RBC 3.93 L (4.20-5.40) 10^6/uL Hgb 9.7 L (12.0-16.0) g/dL Hct 33.0 L (37.0-47.0) % MCV 84.0 (81.0-99.0) fL MCH 24.7 L (27.0-31.0) pg MCHC 29.4 L (32.0-36.0) g/dL RDW 17.2 H (12.0-15.0) % Plt Count 440 (130-450) 10^3/uL MPV 9.5 (7.9-10.8) fL Neut # (Auto) 12.4 H (1.5-6.6) 10^3/uL Lymph # (Auto) 2.9 (1.5-3.5) 10^3/uL [place] # (Auto) 1.1 H (0.0-1.0) 10^3/uL Eos # (Auto) 0.5 (0.0-0.7) 10^3/uL Baso # (Auto) 0.1 (0.0-0.1) 10^3/uL Absolute Nucleated RBC 0.00 x10^3/uL Nucleated RBC % 0.0 /100WBC Sodium 144 (135-145) mmol/L Potassium 2.8 L (3.5-5.0) mmol/L Chloride 108 (101-111) mmol/L Carbon Dioxide 29 (21-32) mmol/L Anion Gap 7.0 (6-13) BUN 7 (6-20) mg/dL Creatinine 0.3 L (0.4-1.0) mg/dL Estimated GFR (MDRD) 217 (>89) Glucose 123 H (70-100) mg/dL Calcium 7.8 L (8.5-10.3) mg/dL ABX Reporting Has patient been on IV antibiotics over the past 48 hours?: Yes Sepsis Event Note (H) - Evaluation Possible source of Sepsis: positive: Pulmonary, Genitourinary - Sepsis Criteria Sepsis Criteria: Recorded Heart Rate greater than 90 bpm, Respiratory: Increasing oxygen requirements, WBC count greater than 12,000 or less than 4000, FIELD ARTILLERY OPERATIONS SPECIALIST: altered consciousness (unrelated to primary neuro pathology) Assessment/Plan - Problem List (1) Sepsis Impression: The patient was tachycardic, hypoxic, had worsened neurologic status in her ba seline, abnormal urinalysis . She had a blood pressure of 93 systolic on admission. Since IV fluids and IV antibiotics, her blood pressure has become better. There are still moments of the day where she is 93 systolic but is usually 118-127 systolic. Hypoxia has resolved and she is on room air since 10/14. And obtundation has resolved and she is more appropriate, awake, and alert. Her last temperature spike was 38.5 at 10:15 in the morning October 14. White cell count is coming down. She peaked at 34.5 on October 13. Today she is 17.2. Blood pressure was stable with this. Blood cultures have been negative.Blood cultures continue to be negative today. Urine culture is growing Proteus which is resistant to Bactrim, nitrofurantoin, gentamicin, ciprofloxacin. Intermediate with Levaquin. It is sensitive to cefepime. She is day #4 of cefepime. Plan: I will stop IV fluids since she is more awake and alert and able to eat and drink. Continue with cefepime 1 g every 8 hours. Total of 7 days of IV antibiotics since I cannot transition her to oral medications that are appropriate. Qualifiers: Sepsis type: sepsis due to unspecified organism Sepsis acute organ dysfunction status: without acute organ dysfunction Qualified Code(s): A41.9 - Sepsis, unspecified organism (2) Catheter-associated Urinary tract infection Conclusion/Plan: She gets frequent UTIs, has a chronic Good. Good was changed out on admission. Plan: As in #1 Qualifiers: Urinary tract infection type: catheter-associated UTI Indwelling urinary c atheter type: indwelling urethral catheter Encounter type: initial encounter Qualified Code(s): T83.511A - Infection and inflammatory reaction due to indwelling urethral catheter, initial encounter; N39.0 - Urinary tract infection, site not specified (3) Chronic indwelling Good catheter Conclusion/Plan: Plan: Good changed out (4) Acute respiratory failure with hypoxia resolved as of 10/14 Conclusion/Plan: Chest x-ray shows either a viral pneumonia or pulmonary edema. She required a nonrebreather when she presented with her sepsis. Then she was transitioned to nasal cannula, that did not work, so then an oxy mask. Back to nasal cannula by October 13. And on room air consistently October 14. Today she has been 92 and 94% on room air. On examination I can still hear phlegm and she has a very weak cough. This was during her breakfast so I do not know how much of it is just retained food in the pharynx. Plan: Encourage incentive spirometry. Encourage deep breathing and deep cough. (5) Parainfluenza infection Conclusion/Plan: Plan: As above in #4 (6) Hypokalemia Conclusion/Plan: Plan: She has been receiving intermittent potassium riders. In spite of that potassium is 2.8 this morning. I will reorder another 60 mill equivalents of riders. Follow BMP daily (7) Altered mental status resolved Conclusion/Plan: She often presents with obtunded mental status when she has a fulminant infection. By the she was still lethargic, minimally responsive to sternal rub. But nurse was able to get her to wake up and swallow that day. When I saw her on the she was sitting up in bed, eating breakfast, and a little slow to respond to my questions but appropriate. Today she is very appropriate. Appreciative of breakfast. Answering all my questions quickly. Sentence structure is normal. She is oriented to person place just not time. She is asking with help to make sure that she does not lose more ground with regards to upper extremity strength. She feels like she has developed some weakness in the last few days. Plan: Continue her pured diet. Physical therapy and Occupational Therapy evaluation and treatment (8) Spastic paraplegia secondary to multiple sclerosis Conclusion/Plan: Patient is now bedbound. During her last hospitalization which was about 9 months ago, she was put on pured food and mildly thickened liquids Plan: We will continue with her usual diet, bowel management, Good management and medications.
[2022-10-16] MEDS: SODIUM CHLORIDE FLUSH 0.9% 10 ML SYRINGE IVP SCH ×2 (00:16→08:45)
[2022-10-16] MEDS: DEXTROSE 5%-0.9% NACL 1,000 ML IV SCH ×2 (00:20→11:25)
[2022-10-16] MEDS: CEFEPIME 1 GM in SODIUM CHLORIDE 0.9% MINIBAG 100 ML IV SCH ×2 (02:09→09:00)
[2022-10-16] MEDS: ACETAMINOPHEN 325 MG TABLET PO PRN ×3 (04:19→16:31)
[2022-10-16 06:06] LABS: BASOPHILS # (AUTO) 0.1 10^3/uL (0.0-0.1); BASOPHILS % (AUTO) 0.5 %; EOSINOPHILS # (AUTO) 0.4 10^3/uL (0.0-0.7); EOSINOPHILS % (AUTO) 2.6 %; HCT - HEMATOCRIT 36.1 % (37.0-47.0); HGB - HEMOGLOBIN 10.7 g/dL (12.0-16.0); LYMPHOCYTES % (AUTO) 18.9 %; MEAN CORPUSCULAR HEMOGLOBIN 24.4 pg (27.0-31.0); MEAN CORPUSCULAR HGB CONC 29.6 g/dL (32.0-36.0); MEAN CORPUSCULAR VOLUME 82.2 fL (81.0-99.0); MEAN PLATELET VOLUME 9.5 fL (7.9-10.8); MONOCYTES # (AUTO) 1.1 10^3/uL (0.0-1.0); MONOCYTES % (AUTO) 6.9 %; NEUTROPHILS # (AUTO) 11.2 10^3/uL (1.5-6.6); NEUTROPHILS % (AUTO) 70.3 %; PLT - PLATELET COUNT 509 10^3/uL (130-450); RED BLOOD COUNT 4.39 10^6/uL (4.20-5.40); RED CELL DISTRIBUTION WIDTH 16.9 % (12.0-15.0); WHITE BLOOD COUNT 15.9 x10^3/uL (4.8-10.8)
[2022-10-16 06:13] LABS: CREATININE 0.3 mg/dL (0.4-1.0); POTASSIUM 3.4 mmol/L (3.5-5.0)
[2022-10-16] MEDS: MULTIVITAMIN W/MINERALS TABLET PO SCH (08:45)
[2022-10-16] MEDS: ENOXAPARIN 40 MG/0.4 ML SYRINGE SUBQ SCH (08:45)
[2022-10-16] MEDS: SOLIFENACIN SUCCINATE 5 MG TABLET PO SCH (08:45)
[2022-10-16] MEDS: DULoxetine 30 MG CAPSULE PO SCH (08:45)
--- NOTE | 2022-10-16 12:11 | Discharge Plan ---
"Discharge Plan for SNF / [facility] - Discharge Plan And Transition Orders Problem Reviewed?: Yes Disposition: 01 Home, Self Care Condition: Stable Allergies and Adverse Reactions: Allergies Allergy/AdvReac Type Severity Reaction Status Date / Time nystatin Allergy Unknown Verified 10/12/22 15:35 Penicillins Allergy Unknown Verified 10/12/22 15:35 Health Concerns: She is a 72-year-old female who is bedbound because of multiple sclerosis and spastic paraplegia and has a chronic indwelling Good catheter. She lives at a halfway facility. She has multiple episodes of recurrent UTIs and sepsis. With this admission she was somnolent, febrile, and brought to the emergency room with these changes in status. White cell count was 33,000, and she did have a UTI but she was also positive for parainfluenza on viral PCR. She was hypoxic and desaturating and needing oxygen. Urinalysis was described as complete pyuria. Good catheter was changed, she was hydrated, given empiric antibiotics. Urine culture grew out Proteus and Enterococcus. She has had hypokalemia throughout her stay requiring daily potassium riders. White cell count was initially 33,000 and peaked at 34,000. On the day of discharge she is come down to 15.9 thousand. From a mental status she is awake, alert. No longer obtunded. Her main complaint was losing strength in her upper extremities. That is the only thing she is able to move around voluntarily and she worries about losing the mobility of her arms. Plan of Treatment: She is felt stable for transfer back to her halfway facility where she can complete her antibiotic therapy. Proteus is resistant to ampicillin, Unasyn, ciprofloxacin, gentamicin, Levaquin, nitrofurantoin, and Bactrim. We have her on cefepime and she has responded to that. Enterococcus is sensitive to ampicillin, ciprofloxacin, Levaquin, and vancomycin. As such we will continue cefepime 1 g 3 times daily and she received one dose of fosfomycin at discharge to take care of the enterococcus. 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 CBC and BMP should be checked October 17 and October 20. Physical therapy for upper extremity strengthening should also continue. She has a new Good catheter that was placed October 12. I would recommend Good catheter be changed every 2 weeks and no less than every month. Care Goals: To complete current therapy for Proteus UTI resulting in sepsis - SNF / [facility] Transition Orders Admit to (Facility): [facility] Under the care of (Name): Team health physician onsite Discharge Diagnosis: 1. Sepsis with UTI 2. Chronic indwelling Good catheter 3. Acute respiratory failure with hypoxia 4. Parainfluenza infection 5. Hypokalemia 6. Altered mental status 7. Spastic paraplegia secondary to multiple sclerosis Medicare Certification Statement: I certify that [facility] care is medically necessary on a continuing basis for any of the conditions for which she/he is receiving care during hospitalization. Notify PCP of admission and forward orders to primary provider for signature. Weight on admission and: Weekly Other Notification Orders: Call PCP immediately if patient develops dyspnea, chest pain/tightness or edema. House Bowel Program: Yes Additional Bowel Program Orders: If no BM after 2 days, nurse may give M.O.M. 30ml PO PRN and/or ducolax Supp 1 NC and/or JAIR 250mg P.O., and/or senna 1-2 tabs PO. On day 3 nurse may give repeat above order until residents constipation is resolved. Annual Influenza Vaccine (between Mar 20 and October 17): Yes Two-step PPD per [facility] [id number] or approved exception documents: Yes Medication Orders: PLEASE REFER TO THE DISCHARGE MEDICATION LIST. Insulin Orders?: No - Medications New Prescriptions: Cefepime 2 gm IV Q12H #6 ml - Diet Type: Geriatric Texture: Regular Liquids: Thin May have monthly special meal: Yes - Therapies | Activity Therapy: Evaluation | Treat if indicated: PT (for upper extremity strength and mobility) Rehabilitation Potential: Maximize functional status Activity: Wt Bearing as Tolerated"
--- NOTE | 2022-10-16 12:40 | DISCHARGE SUMMARY ---
"Discharge Summary Admit Date: 10/12/22 Discharge Date: 10/16/22 Discharging Provider: Bibi Meyer MD Primary Care Provider: Francisca Delgadillo MD at [facility] Code Status: Do Not Attempt Resuscitation Condition at Discharge: Stable Discharge Disposition: 01 Home, Self Care - DIAGNOSES Discharge Diagnoses with Status of Each Condition: 1. Sepsis with UTI 2. Chronic indwelling Good catheter 3. Acute respiratory failure with hypoxia 4. Parainfluenza infection 5. Hypokalemia 6. Altered mental status 7. 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 At [facility], the staff reported her temperature was 102 today. Her oxygen saturation was apparently abnormal at the scene and EMS had her on 14L supplemental oxygen via rebreather mask. Upon presentation to the ER she was tachy at 120, BP 100/60, afebrile and saturation 98% on 14L. She was noted to have a fentanyl patch on. She was given Narcan in the ER which had minimal effect and she was turned down to 6L O2 via mask. In the ED work-up included CBC which showed a white blood cell count of 33, but Lactic Acid normal. She is COVID-negative but parainfluenza positive. Chest x-ray showed interstitial prominence so infiltrate versus pulmonary edema. A urine sample was white in color and strongly indicative of a UTI. Blood cultures were drawn and then she received iv Cefepime in the ER (based on her last urine cultures from Feb 2022, that grew Pseudomonas and E coli). The ED provider discussed her with me on the Hospitalist Team for admission for further treatment of sepsis from a UTI and hypoxia from parainfluenza infection. 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 Consider artifact from the incomplete inspiration versus mild pulmonary edema. Consider short- term follow-up chest x-ray in 2 weeks. Blood culture was without growth after 5 days. Urine culture grew Proteus mirabilis and Enterococcus faecalis. - HOSPITAL COURSE Hospital Course: It was established that most of her time is spent in bed at her detention facility because of her spastic paraplegia. She has a chronic indwelling Good. While here she lost quite a bit of ground just because of upper extremity strength. She uses her arms to be able to transfer, move herself around in her bed. Here she was so weak she could not do that. She recognizes that she does not the strength to transfer from bed to a wheelchair. She usually is able to. She work with physical therapy here and were hoping that she can go back to physical therapy at her detention facility. With IV antibiotics and fluids her sepsis criteria resolved. Metabolic encephalopathy and sleepiness resolved and she returned to her baseline status. Good catheter was changed twice during the stay. Acute respiratory failure with hypoxia resolved when she was resuscitated and sepsis resolved. Hypokalemia was treated with intermittent potassium riders.Medications were cefepime and then 1 dose of fosfomycin to cover her UTI. At discharge temperature was 36.3. Heart rate 85. Blood pressure 151/87. Respirations 20. 95% on room air. She is forgetful, but alert, knew that she was not at her half-way and wanted to go back. Slightly runny nose and nasal congestion. Neck has shotty adenopathy. Lungs had decreased breath sounds at the bases, but no tachypnea or respiratory distress. Regular rate and rhythm. Abdomen had nontender belly. Last bowel movement was October 16. She had an indwelling Good catheter draining yellow urine. Neurologically she is disoriented to person place and time. Hard of hearing. Spastic paraplegia from the waist down. Greater than 30 minutes was spent coordinating discharge - ALLERGIES Allergies/Adverse Reactions: Allergies Allergy/AdvReac Type Severity Reaction Status Date / Time nystatin Allergy Unknown Verified 10/12/22 15:35 Penicillins Allergy Unknown Verified 10/12/22 15:35 - MEDICATIONS Home Medications: Ambulatory Orders Medication Instructions Recorded Confirmed Cholecalciferol (Vitamin D3) 2,000 unit PO DAILY 01/28/18 10/13/22 [Vitamin D3] Calcium Carbonate [Tums (Calcium 1,000 mg PO Q4HR PRN 11/09/18 10/12/22 Carbonate 500mg)] Naloxone HCl 0.1 ml SLY PRN PRN 11/09/18 10/12/22 Sennosides [Senna Lax] 8.6 mg PO BID PRN 06/07/19 10/12/22 Albuterol Sulf [Ventolin Hfa 2 puffs INH Q4H PRN 08/23/20 10/13/22 Inhaler] Fluticasone/Salmeterol [Advair Hfa 1 puffs INH BID 12/30/20 10/13/22 115-21 Mcg Inhaler] Oxybutynin Chloride [Ditropan Xl] 10 mg PO DAILY 12/30/20 10/13/22 Potassium Chloride [Micro-K] 40 meq PO DAILY 12/30/20 10/13/22 hydroCHLOROthiazide 50 mg PO DAILY 12/30/20 10/13/22 [Hydrochlorothiazide] D-Mannose [Azo D-Mannose] 500 mg PO TIDWM 01/26/21 10/13/22 Mineral Oil [Mineral Oil Enema] 1 ea RC DAILY PRN 05/21/21 10/12/22 Acetaminophen [Aphen] 650 mg PO Q4H PRN 01/30/22 10/12/22 Ferrous Sulfate 325 mg PO DAILYWM 01/30/22 10/13/22 Atorvastatin [Lipitor] 40 mg PO QPM tablet 02/03/22 10/13/22 Baclofen [Lioresal] 10 mg PO TID tablet 02/03/22 10/13/22 fentaNYL [Fentanyl 25mcg patch] 1 each TD Q3D 10/12/22 10/13/22 Docusate Sodium [Dulcolax Stool 100 mg PO 0800,1200 10/13/22 10/13/22 Softener] guaiFENesin [Chest Congestion 5 ml PO Q5H PRN 10/13/22 10/13/22 Relief] polyethylene glycoL 3350 [Miralax] 17 g PO DAILY 10/13/22 10/13/22 Baclofen [Lioresal Intrathecal] 1,341.4 mcg IT DAILY 10/15/22 10/15/22 Cefepime 2 gm IV Q12H #6 ml 10/16/22 DULoxetine [Cymbalta] 60 mg PO DAILY #0 10/16/22 10/13/22 Sodium Chloride Flush 0.9% [Normal 10 ml IVP 0100,0900,1700 ml 10/16/22 Saline Flush 0.9%] Zinc Oxide 20% Oint [Zinc Oxide] 1 applic TOP PRN PRN each 10/16/22 - LABS Result Diagrams: 10/16/22 05:36 10/16/22 05:36 - SEPSIS Possible source of Sepsis: Pulmonary, Genitourinary Sepsis Criteria: Recorded Heart Rate greater than 90 bpm, Respiratory: Increasing oxygen requirements, WBC count greater than 12,000 or less than 4000, CAPACITOR PACK PRESS OPERATOR: altered consciousness (unrelated to primary neuro pathology)"
[2022-10-16] MEDS ORDERED: FOSFOMYCIN TROMETHAMINE 3 GM PACKET PO ONE (13:47)
[2022-10-16 15:51] VITALS: BP 151/87
== END 2022-10-16 14:30 | disposition home or self-care (01) | DRG 871 ==
LOC: EDUNIT# → ED 15:19 → MS2 17:54
PROVIDERS: ADMIT Internal Medicine; ATTEND Specialist
DX: A41.9 Sepsis, unspecified organism (principal); G93.41 Metabolic encephalopathy; R09.02 Hypoxemia; J96.01 Acute respiratory failure with hypoxia; E87.1 Hypo-osmolality and hyponatremia; T83.511A Infection and inflammatory reaction due to indwelling urethral catheter, initial encounter; G82.20 Paraplegia, unspecified; N39.0 Urinary tract infection, site not specified; J44.9 Chronic obstructive pulmonary disease, unspecified; B34.8 Other viral infections of unspecified site; Z20.822 Contact with and (suspected) exposure to COVID-19; E87.6 Hypokalemia; R41.82 Altered mental status, unspecified; G35 Multiple sclerosis; Z66 Do not resuscitate; E78.00 Pure hypercholesterolemia, unspecified; R32 Unspecified urinary incontinence; F32.A Depression, unspecified; F41.9 Anxiety disorder, unspecified; B96.4 Proteus (mirabilis) (morganii) as the cause of diseases classified elsewhere; B95.2 Enterococcus as the cause of diseases classified elsewhere; R53.1 Weakness; G62.9 Polyneuropathy, unspecified; Z86.73 Personal history of transient ischemic attack (TIA), and cerebral infarction without residual deficits; Z87.891 Personal history of nicotine dependence; Z74.01 Bed confinement status
CPT/HCPCS: 36415; 51702; 71045; 80048; 80053; 81001; 83605; 83690; 83735; 84100; 85025; 85610; 85730; 87040; 87077; 87086; 87181; 87633; 94640; 96374; 97163; 97167; 99285; A9270; J1650; J8499; 81003

== ENCOUNTER 2022-10-16 16:47 | Outpatient (CLI) | payer MEDICARE, MEDICAID | END 2022-10-16 23:59 | LOC: HHC 16:47 | PROVIDERS: ATTEND Specialist | DX: A41.9 Sepsis, unspecified organism (principal); N39.0 Urinary tract infection, site not specified; Z74.01 Bed confinement status | CPT/HCPCS: A0425; A0428 ==

== ENCOUNTER 2022-10-20 11:50 | Outpatient (CLI) | payer MEDICARE, MEDICAID ==
[2022-10-20 12:05] LABS: BASOPHILS # (AUTO) 0.1 10^3/uL (0.0-0.1); BASOPHILS % (AUTO) 0.5 %; EOSINOPHILS # (AUTO) 0.9 10^3/uL (0.0-0.7); EOSINOPHILS % (AUTO) 4.6 %; HGB - HEMOGLOBIN 10.8 g/dL (12.0-16.0); LYMPHOCYTES # (AUTO) 4.7 10^3/uL (1.5-3.5); LYMPHOCYTES % (AUTO) 25.4 %; MEAN CORPUSCULAR HEMOGLOBIN 24.9 pg (27.0-31.0); MEAN CORPUSCULAR VOLUME 83.1 fL (81.0-99.0); MEAN PLATELET VOLUME 9.2 fL (7.9-10.8); MONOCYTES # (AUTO) 1.4 10^3/uL (0.0-1.0); MONOCYTES % (AUTO) 7.5 %; NEUTROPHILS # (AUTO) 11.3 10^3/uL (1.5-6.6); NEUTROPHILS % (AUTO) 60.8 %; PLT - PLATELET COUNT 670 10^3/uL (130-450); RED BLOOD COUNT 4.33 10^6/uL (4.20-5.40); RED CELL DISTRIBUTION WIDTH 17.4 % (12.0-15.0); WHITE BLOOD COUNT 18.7 x10^3/uL (4.8-10.8)
[2022-10-20 12:42] LABS: CALCIUM 8.9 mg/dL (8.5-10.3); CREATININE 0.4 mg/dL (0.4-1.0); POTASSIUM 3.5 mmol/L (3.5-5.0)
== END 2022-10-20 11:51 | disposition home or self-care (01) ==
LOC: LAB.R 11:50
PROVIDERS: ATTEND Registered Nurse
DX: E87.6 Hypokalemia (principal); D64.9 Anemia, unspecified
CPT/HCPCS: 80048; 85025

== ENCOUNTER 2022-12-02 08:00 | Outpatient (CLI) | payer MEDICARE, MEDICAID ==
[2022-12-02 20:31] LABS: BILIRUBIN,URINE NEGATIVE (NEGATIVE); GLUCOSE, URINE (UA) NEGATIVE (NEGATIVE); KETONES,URINE (UA) NEGATIVE (NEGATIVE); LEUKOCYTE ESTERASE, URINE LARGE (NEGATIVE); NITRITE,URINE NEGATIVE (NEGATIVE); OCCULT BLOOD,URINE LARGE (NEGATIVE); PH,URINE 6.5 PH (5.0-7.5); PROTEIN,URINE 100 mg/dL (NEGATIVE); UROBILINOGEN,URINE 0.2 (NORMAL) E.U./dL (NORMAL)
[2022-12-02 20:51] LABS: BACTERIA,URINE Many /HPF (None Seen); CLARITY,URINE HAZY (CLEAR); RBC,URINE TNTC /HPF (0-5); SQUAMOUS EPITHELIAL CELL,UR MANY Squamous (<= Few); WBC,URINE >25 /HPF (0-5)
== END 2022-12-02 23:59 | disposition home or self-care (01) ==
LOC: LAB.R 08:00
DX: B96.89 Other specified bacterial agents as the cause of diseases classified elsewhere (principal)
CPT/HCPCS: 81001; 87086

== ENCOUNTER 2022-12-04 07:25 | Outpatient (CLI) | payer MEDICARE, MEDICAID ==
[2022-12-04 07:34] LABS: BILIRUBIN,URINE NEGATIVE (NEGATIVE); GLUCOSE, URINE (UA) NEGATIVE (NEGATIVE); KETONES,URINE (UA) NEGATIVE (NEGATIVE); LEUKOCYTE ESTERASE, URINE MODERATE (NEGATIVE); NITRITE,URINE NEGATIVE (NEGATIVE); OCCULT BLOOD,URINE MODERATE (NEGATIVE); PROTEIN,URINE TRACE mg/dL (NEGATIVE); UROBILINOGEN,URINE 0.2 (NORMAL) E.U./dL (NORMAL)
[2022-12-04 07:35] LABS: CLARITY,URINE CLEAR (CLEAR)
[2022-12-04 07:40] LABS: CALCIUM 8.7 mg/dL (8.5-10.3); CREATININE 0.3 mg/dL (0.4-1.0); POTASSIUM 3.5 mmol/L (3.5-5.0)
== END 2022-12-04 07:26 | disposition home or self-care (01) ==
LOC: LAB.R 07:25
PROVIDERS: ATTEND Registered Nurse
DX: I10 Essential (primary) hypertension (principal); N39.0 Urinary tract infection, site not specified
CPT/HCPCS: 80048; 81003; 87077; 87086; 87181

== ENCOUNTER 2022-12-18 03:37 | Outpatient (CLI) | payer MEDICARE, MEDICAID | END 2022-12-18 23:59 | disposition critical access hospital (66) | LOC: EMS 03:37 | DX: R51.9 Headache, unspecified (principal) | CPT/HCPCS: A0425; A0429 ==

== ENCOUNTER 2022-12-18 03:42 | Emergency (ER) | payer MEDICARE, MEDICAID ==
--- NOTE | 2022-12-18 03:56 | ED Physician Documentation ---
History of Present Illness - Stated complaint Stated Complaint: AMS - History obtained from History obtained from: Patient, EMS - Additonal information Additional information: 72-year-old woman with history of dementia, DNR with indwelling Christensen catheter, presents from [facility] with report by ems that they were called by alf staff who said the patient had a headache and was not acting herself. Patient has no complaints at this time except for joint pains and is unsure why she is here. 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, Other : Incontinence, Chronic bladder infection HEENT: Chronic vision loss Psych: Depression, Anxiety Musculoskeletal: Paraplegia, Other Derm: Other - Past Surgical History Past Surgical History: Yes General: Colonoscopy, EGD Ortho: Other - Present Medications Home Medications: Ambulatory Orders Medication Instructions Recorded Confirmed Cholecalciferol (Vitamin D3) 2,000 unit PO DAILY 01/28/18 10/13/22 [Vitamin D3] Calcium Carbonate [Tums (Calcium 1,000 mg PO Q4HR PRN 11/09/18 10/12/22 Carbonate 500mg)] Naloxone HCl 0.1 ml SLY PRN PRN 11/09/18 10/12/22 Sennosides [Senna Lax] 8.6 mg PO BID PRN 06/07/19 10/12/22 Albuterol Sulf [Ventolin Hfa 2 puffs INH Q4H PRN 08/23/20 10/13/22 Inhaler] Fluticasone/Salmeterol [Advair Hfa 1 puffs INH BID 12/30/20 10/13/22 115-21 Mcg Inhaler] Oxybutynin Chloride [Ditropan Xl] 10 mg PO DAILY 12/30/20 10/13/22 Potassium Chloride [Micro-K] 40 meq PO DAILY 12/30/20 10/13/22 hydroCHLOROthiazide 50 mg PO DAILY 12/30/20 10/13/22 [Hydrochlorothiazide] D-Mannose [Azo D-Mannose] 500 mg PO TIDWM 01/26/21 10/13/22 Mineral Oil [Mineral Oil Enema] 1 ea RC DAILY PRN 05/21/21 10/12/22 Acetaminophen [Aphen] 650 mg PO Q4H PRN 01/30/22 10/12/22 Ferrous Sulfate 325 mg PO DAILYWM 01/30/22 10/13/22 Atorvastatin [Lipitor] 40 mg PO QPM tablet 02/03/22 10/13/22 Baclofen [Lioresal] 10 mg PO TID tablet 02/03/22 10/13/22 fentaNYL [Fentanyl 25mcg patch] 1 each TD Q3D 10/12/22 10/13/22 Docusate Sodium [Dulcolax Stool 100 mg PO 0800,1200 10/13/22 10/13/22 Softener] guaiFENesin [Chest Congestion 5 ml PO Q5H PRN 10/13/22 10/13/22 Relief] polyethylene glycoL 3350 [Miralax] 17 g PO DAILY 10/13/22 10/13/22 Baclofen [Lioresal Intrathecal] 1,341.4 mcg IT DAILY 10/15/22 10/15/22 Cefepime 2 gm IV Q12H #6 ml 10/16/22 DULoxetine [Cymbalta] 60 mg PO DAILY #0 10/16/22 10/13/22 Sodium Chloride Flush 0.9% [Normal 10 ml IVP 0100,0900,1700 ml 10/16/22 Saline Flush 0.9%] Zinc Oxide 20% Oint [Zinc Oxide] 1 applic TOP PRN PRN each 10/16/22 - Allergies Allergies/Adverse Reactions: Allergies Allergy/AdvReac Type Severity Reaction Status Date / Time nystatin Allergy Unknown Verified 10/12/22 15:35 Penicillins Allergy Unknown Verified 10/12/22 15:35 - Social History Does the pt smoke?: No Smoking Status: Never smoker Does the pt drink ETOH?: No Does the pt have substance abuse?: No - Immunizations Immunizations are current?: Yes - POLST Patient has POLST: Yes POLST Status: DNR (Advanced care planning. Patient does have D POA which is her son Adan, has a POLST in place with the OSIEL and selective treatments. She is quite thoughtful and pragmatic and wane benefits and burdens of medical interventions and appointments. We will continue to anticipate decline in the future,) PD ED PE NORMAL - Vitals Vital signs reviewed: Yes - General General: No acute distress, Well developed/nourished, Other (alert, mentating at baseline) - HEENT HEENT: Atraumatic, PERRL, EOMI - Neck Neck: Supple, no meningeal sign - Cardiac Cardiac: RRR - Respiratory Respiratory: No respiratory distress, Clear bilaterally - Abdomen Abdomen: Non tender, Non distended - Female Female : Other (indwelling christensen catheter in place. straw colored urine in bag) - Derm Derm: Normal color, Warm and dry - Extremities Extremities: No deformity - Neuro Neuro: No motor deficit, No sensory deficit - Psych Psych: Normal mood, Normal affect Results - Vitals Vitals: Oxygen O2 Source Room air PD Medical Decision Making - ED course ED course: 72-year-old woman, DNR, history of dementia, presents from [facility] for possible headache or maybe some confusion tonight. Patient has no complaints at this time therefore she was returned to [facility]. We attempted to contact [facility] staff several times to see if they had other concerns. I personally called and also had our headache dysuria attempted to contact them and we were unable to reach anybody. Discharge instructions are to follow-up with her primary care provider and to call ahead for continuity of care if they need to have her return for any reason. Departure - Departure Disposition: 01 Home, Self Care Clinical Impression: Encounter for medical screening examination Condition: Stable Instructions: ED Screening Exam Medical Nonurgent Comments: Ms. Quesada underwent a general medical screening in the emergency department after paramedics brought her in from [facility] with report that she had a headache and was not acting her normal self. They also reported that she finished the treatment for urinary tract infection yesterday. The patient, when questioned, did not know why she was here and had no complaints, requesting to go back to bed. We attempted to contact [facility] and were unable to reach anyone and therefore we contacted EMS to send her home. Her temperature, heart rate and blood pressure in the emergency department were normal. She had no concerning physical exam findings. I did note she has a christensen that likely has bacteria in it (asymptomatic bacteria in the urine). Since she is not having fever or abdominal pain we are not testing her urine. Please have her follow-up with her primary care provider. Please call ahead if you have other concerns that will require her to return.
[2022-12-18 04:33] VITALS: BP 116/65
== END 2022-12-18 04:30 | disposition home or self-care (01) ==
LOC: EDUNIT# → ED 03:42
DX: R41.82 Altered mental status, unspecified (principal); R51.9 Headache, unspecified; Z96.0 Presence of urogenital implants; Z66 Do not resuscitate
CPT/HCPCS: 99282; 99283

== ENCOUNTER 2022-12-18 04:29 | Outpatient (CLI) | payer MEDICARE, MEDICAID | END 2022-12-18 23:59 | disposition home or self-care (01) | LOC: EMS 04:29 | PROVIDERS: ATTEND Emergency Medicine | DX: R41.0 Disorientation, unspecified (principal) | CPT/HCPCS: A0425; A0428 ==

== ENCOUNTER 2023-01-27 11:19 | Outpatient (CLI) | payer MEDICARE, MEDICAID ==
[2023-01-27 11:32] LABS: CALCIUM 8.7 mg/dL (8.5-10.3); CREATININE 0.4 mg/dL (0.4-1.0); POTASSIUM 3.1 mmol/L (3.5-5.0)
== END 2023-01-27 11:20 | disposition home or self-care (01) ==
LOC: LAB.R 11:19
PROVIDERS: ATTEND Registered Nurse
DX: I10 Essential (primary) hypertension (principal)
CPT/HCPCS: 80048

== ENCOUNTER 2023-01-30 08:00 | Outpatient (CLI) | payer MEDICARE, MEDICAID ==
[2023-01-30 18:36] LABS: BILIRUBIN,URINE NEGATIVE (NEGATIVE); GLUCOSE, URINE (UA) NEGATIVE (NEGATIVE); KETONES,URINE (UA) NEGATIVE (NEGATIVE); LEUKOCYTE ESTERASE, URINE LARGE (NEGATIVE); NITRITE,URINE POSITIVE (NEGATIVE); OCCULT BLOOD,URINE LARGE (NEGATIVE); PROTEIN,URINE 30 mg/dL (NEGATIVE); UROBILINOGEN,URINE 0.2 (NORMAL) E.U./dL (NORMAL)
[2023-01-30 18:42] LABS: CLARITY,URINE CLOUDY (CLEAR)
[2023-01-30 19:13] LABS: AMORPHOUS SEDIMENT,UR Few /LPF; BACTERIA,URINE Many /HPF (None Seen); SQUAMOUS EPITHELIAL CELL,UR FEW Squamous (<= Few); WBC,URINE >25 /HPF (0-5)
== END 2023-01-30 23:59 | disposition home or self-care (01) ==
LOC: LAB.R 08:00
PROVIDERS: ATTEND Registered Nurse
DX: N39.0 Urinary tract infection, site not specified (principal)
CPT/HCPCS: 81001; 81003; 87077; 87086; 87181

== ENCOUNTER 2023-02-13 07:58 | Outpatient (CLI) | payer MEDICARE, MEDICAID ==
[2023-02-13 08:16] LABS: BILIRUBIN,URINE NEGATIVE (NEGATIVE); GLUCOSE, URINE (UA) NEGATIVE (NEGATIVE); KETONES,URINE (UA) NEGATIVE (NEGATIVE); LEUKOCYTE ESTERASE, URINE MODERATE (NEGATIVE); NITRITE,URINE NEGATIVE (NEGATIVE); OCCULT BLOOD,URINE MODERATE (NEGATIVE); PROTEIN,URINE 100 mg/dL (NEGATIVE); UROBILINOGEN,URINE 0.2 (NORMAL) E.U./dL (NORMAL)
[2023-02-13 08:20] LABS: CLARITY,URINE CLOUDY (CLEAR)
[2023-02-13 08:21] LABS: BACTERIA,URINE Rare /HPF (None Seen); EPITHELIAL CELLS,UR RARE Transitional /HPF (<= Few); SQUAMOUS EPITHELIAL CELL,UR MOD Squamous (<= Few); YEAST,URINE PRESENT
== END 2023-02-13 07:59 | disposition home or self-care (01) ==
LOC: LAB.R 07:58
PROVIDERS: ATTEND Registered Nurse
DX: N39.0 Urinary tract infection, site not specified (principal)
CPT/HCPCS: 81001; 87086

== ENCOUNTER 2023-02-18 07:15 | Outpatient (CLI) | payer MEDICARE, MEDICAID ==
[2023-02-18 07:31] LABS: BILIRUBIN,URINE NEGATIVE (NEGATIVE); GLUCOSE, URINE (UA) NEGATIVE (NEGATIVE); KETONES,URINE (UA) NEGATIVE (NEGATIVE); LEUKOCYTE ESTERASE, URINE LARGE (NEGATIVE); NITRITE,URINE NEGATIVE (NEGATIVE); OCCULT BLOOD,URINE LARGE (NEGATIVE); PH,URINE 7.5 PH (5.0-7.5); PROTEIN,URINE 100 mg/dL (NEGATIVE); UROBILINOGEN,URINE 0.2 (NORMAL) E.U./dL (NORMAL)
[2023-02-18 07:45] LABS: CLARITY,URINE SL. CLOUDY (CLEAR)
[2023-02-18 07:48] LABS: BACTERIA,URINE Moderate /HPF (None Seen); SQUAMOUS EPITHELIAL CELL,UR RARE Squamous (<= Few)
== END 2023-02-18 07:16 | disposition home or self-care (01) ==
LOC: LAB.R 07:15
PROVIDERS: ATTEND Registered Nurse
DX: N39.0 Urinary tract infection, site not specified (principal)
CPT/HCPCS: 81001; 87086

== ENCOUNTER 2023-04-27 17:04 | Outpatient (CLI) | payer MEDICARE, MEDICAID | END 2023-04-27 17:05 | disposition home or self-care (01) | LOC: EMS 17:04 | PROVIDERS: ATTEND Internal Medicine | DX: J40 Bronchitis, not specified as acute or chronic (principal); G35 Multiple sclerosis; F03.90 Unspecified dementia, unspecified severity, without behavioral disturbance, psychotic disturbance, mood disturbance, and anxiety; Z74.01 Bed confinement status | CPT/HCPCS: A0425; A0428 ==

== ENCOUNTER 2023-04-29 07:02 | Outpatient (CLI) | payer MEDICARE, MEDICAID ==
--- NOTE | 2023-04-29 19:25 | XRAY Report ---
PROCEDURE: Chest 2 View X-Ray INDICATIONS: XRAY TECHNIQUE: 2 views of the chest were obtained. COMPARISON: 04/25/2023 FINDINGS: Surgical changes and devices: None. Lungs and pleura: No pleural effusions or pneumothorax. Lungs are clear. Mediastinum: Mediastinal contours appear normal. Heart size is normal. Bones and chest wall: No suspicious bony lesions. Overlying soft tissues appear unremarkable. IMPRESSION: No acute cardiopulmonary findings Reviewed by: Alonzo Miranda MD on 04/29/2023 6:24 PM [facility] Approved by: Alonzo Miranda MD on 04/29/2023 6:24 PM [facility] Station ID: [id number]
== END 2023-04-29 07:03 | disposition home or self-care (01) ==
LOC: DI 07:02
PROVIDERS: ATTEND Registered Nurse
DX: R06.89 Other abnormalities of breathing (principal); D64.9 Anemia, unspecified; G35 Multiple sclerosis; N30.21 Other chronic cystitis with hematuria; Z16.21 Resistance to vancomycin
CPT/HCPCS: 80053; 85025

== ENCOUNTER 2023-04-29 14:02 | Outpatient (CLI) | payer MEDICARE, MEDICAID ==
[2023-04-29 14:10] LABS: BASOPHILS # (AUTO) 0.1 10^3/uL (0.0-0.1); BASOPHILS % (AUTO) 0.6 %; EOSINOPHILS # (AUTO) 0.6 10^3/uL (0.0-0.7); EOSINOPHILS % (AUTO) 3.9 %; HCT - HEMATOCRIT 39.1 % (37.0-47.0); HGB - HEMOGLOBIN 11.3 g/dL (12.0-16.0); LYMPHOCYTES # (AUTO) 3.3 10^3/uL (1.5-3.5); LYMPHOCYTES % (AUTO) 21.8 %; MEAN CORPUSCULAR HEMOGLOBIN 24.6 pg (27.0-31.0); MEAN CORPUSCULAR HGB CONC 28.9 g/dL (32.0-36.0); MONOCYTES % (AUTO) 6.3 %; NEUTROPHILS # (AUTO) 10.3 10^3/uL (1.5-6.6); NEUTROPHILS % (AUTO) 67.1 %; PLT - PLATELET COUNT 486 10^3/uL (130-450); RED CELL DISTRIBUTION WIDTH 17.5 % (12.0-15.0); WHITE BLOOD COUNT 15.3 x10^3/uL (4.8-10.8)
[2023-04-29 14:26] LABS: ALBUMIN 3.7 g/dL (3.2-5.5); ALBUMIN/GLOBULIN RATIO 0.9 (1.0-2.2); BILIRUBIN,TOTAL 0.2 mg/dL (0.2-1.0); CALCIUM 9.4 mg/dL (8.5-10.3); CREATININE 0.4 mg/dL (0.6-1.3); POTASSIUM 4.6 mmol/L (3.5-4.5)
[2023-04-29 14:38] LABS: PLATELET ESTIMATE, MANUAL INCREASED (>450,000) (NORMAL); RBC MORPHOLOGY (MULTIPLE) 3+ HYPOCHROMASIA (NORMAL); WBC MORPHOLOGY (MULTIPLE) NORMAL APPEARANCE (NORMAL)
== END 2023-04-29 14:03 | disposition home or self-care (01) ==
LOC: LAB.R 14:02
PROVIDERS: ATTEND Registered Nurse
DX: D64.9 Anemia, unspecified (principal); G35 Multiple sclerosis; N30.21 Other chronic cystitis with hematuria; Z16.12 Extended spectrum beta lactamase (ESBL) resistance
CPT/HCPCS: 80053; 85025

== ENCOUNTER 2023-05-22 13:24 | Outpatient (CLI) | payer MEDICARE, MEDICAID ==
[2023-05-22 14:12] LABS: ALBUMIN 3.4 g/dL (3.2-5.5); ALBUMIN/GLOBULIN RATIO 0.8 (1.0-2.2); BILIRUBIN,TOTAL 0.2 mg/dL (0.2-1.0); CALCIUM 8.6 mg/dL (8.5-10.3); CREATININE 0.3 mg/dL (0.6-1.3); POTASSIUM 3.6 mmol/L (3.5-4.5); TOTAL PROTEIN 7.8 g/dL (6.4-8.9)
== END 2023-05-22 13:25 | disposition home or self-care (01) ==
LOC: LAB.R 13:24
PROVIDERS: ATTEND Registered Nurse
DX: I10 Essential (primary) hypertension (principal); G35 Multiple sclerosis
CPT/HCPCS: 80053

== ENCOUNTER 2023-06-08 13:53 | Outpatient (CLI) | payer MEDICARE, MEDICAID | END 2023-06-08 13:54 | disposition home or self-care (01) | LOC: EMS 13:53 | DX: T76.21XA Adult sexual abuse, suspected, initial encounter (principal); R41.82 Altered mental status, unspecified | CPT/HCPCS: A0425; A0429 ==

== ENCOUNTER 2023-06-08 14:00 | Emergency (ER) | payer MEDICARE, MEDICAID ==
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
[2023-06-08 16:07] LABS: BILIRUBIN,URINE NEGATIVE (NEGATIVE); GLUCOSE, URINE (UA) NEGATIVE (NEGATIVE); KETONES,URINE (UA) NEGATIVE (NEGATIVE); LEUKOCYTE ESTERASE, URINE LARGE (NEGATIVE); NITRITE,URINE POSITIVE (NEGATIVE); OCCULT BLOOD,URINE MODERATE (NEGATIVE); PROTEIN,URINE TRACE mg/dL (NEGATIVE); UROBILINOGEN,URINE 0.2 (NORMAL) E.U./dL (NORMAL)
[2023-06-08 16:09] LABS: CLARITY,URINE CLOUDY (CLEAR)
[2023-06-08 16:24] LABS: WBC,URINE >25 /HPF (0-5)
[2023-06-08 16:25] LABS: BACTERIA,URINE Few /HPF (None Seen); CRYSTALS,URINE >50 Triple Phos /LPF; SQUAMOUS EPITHELIAL CELL,UR FEW Squamous (<= Few)
[2023-06-08 19:11] VITALS: BP 134/73; O2SAT 98
--- NOTE | 2023-06-10 13:48 | ED Physician Documentation ---
ED Addendum - Addendum Addendum: 06/10/23 13:48 Urine culture reviewed, per the physician's notes it looks like she has CAUTI. It is a fairly barrientos resistant bug, the only oral option would be a third- generation cephalosporin so I sent a prescription for cefdinir to the pharmacy and I also discussed with staff at [facility] who requested I also faxed the prescription over there and this was done. Also discussed that she can stop the cephalexin.
== END 2023-06-08 19:10 | disposition home or self-care (01) ==
LOC: EDUNIT# → ED 14:00
DX: Z04.41 Encounter for examination and observation following alleged adult rape (principal); N30.00 Acute cystitis without hematuria; Z96.0 Presence of urogenital implants; F03.90 Unspecified dementia, unspecified severity, without behavioral disturbance, psychotic disturbance, mood disturbance, and anxiety; Z66 Do not resuscitate
CPT/HCPCS: 81001; 81003; 87077; 87086; 87181; 99283; 99284

== ENCOUNTER 2023-06-08 19:11 | Outpatient (CLI) | payer MEDICARE, MEDICAID | END 2023-06-08 19:12 | disposition home or self-care (01) | LOC: EMS 19:11 | PROVIDERS: ATTEND Emergency Medicine | DX: N39.0 Urinary tract infection, site not specified (principal); R41.0 Disorientation, unspecified; Z74.01 Bed confinement status | CPT/HCPCS: A0425; A0428 ==

== ENCOUNTER 2023-06-23 08:00 | Outpatient (CLI) | payer MEDICARE, MEDICAID ==
[2023-06-23 16:43] LABS: ALBUMIN 3.5 g/dL (3.2-5.5)
[2023-06-23 16:49] LABS: ALBUMIN/GLOBULIN RATIO 0.9 (1.0-2.2); BILIRUBIN,TOTAL 0.2 mg/dL (0.2-1.0); CALCIUM 9.3 mg/dL (8.5-10.3); CREATININE 0.4 mg/dL (0.6-1.3); POTASSIUM 3.8 mmol/L (3.5-4.5); TOTAL PROTEIN 7.2 g/dL (6.4-8.9)
== END 2023-06-23 23:59 | disposition home or self-care (01) ==
LOC: LAB 08:00
PROVIDERS: ATTEND Registered Nurse
DX: G35 Multiple sclerosis (principal)
CPT/HCPCS: 36415; 80053; 85379

== ENCOUNTER 2023-07-20 08:00 | Outpatient (CLI) | payer MEDICARE, MEDICAID ==
[2023-07-20 17:12] LABS: BASOPHILS # (AUTO) 0.1 10^3/uL (0.0-0.1); BASOPHILS % (AUTO) 0.7 %; EOSINOPHILS # (AUTO) 0.8 10^3/uL (0.0-0.7); EOSINOPHILS % (AUTO) 5.5 %; HCT - HEMATOCRIT 29.8 % (37.0-47.0); HGB - HEMOGLOBIN 8.6 g/dL (12.0-16.0); LYMPHOCYTES # (AUTO) 3.2 10^3/uL (1.5-3.5); LYMPHOCYTES % (AUTO) 23.3 %; MEAN CORPUSCULAR HEMOGLOBIN 23.4 pg (27.0-31.0); MEAN CORPUSCULAR HGB CONC 28.9 g/dL (32.0-36.0); MEAN PLATELET VOLUME 9.9 fL (7.9-10.8); MONOCYTES # (AUTO) 1.1 10^3/uL (0.0-1.0); MONOCYTES % (AUTO) 8.2 %; NEUTROPHILS # (AUTO) 8.4 10^3/uL (1.5-6.6); PLT - PLATELET COUNT 503 10^3/uL (130-450); RED BLOOD COUNT 3.68 10^6/uL (4.20-5.40); RED CELL DISTRIBUTION WIDTH 16.8 % (12.0-15.0); WHITE BLOOD COUNT 13.6 x10^3/uL (4.8-10.8)
[2023-07-20 17:23] LABS: CALCIUM 8.9 mg/dL (8.5-10.3); CREATININE 0.4 mg/dL (0.6-1.3); POTASSIUM 3.8 mmol/L (3.5-4.5)
[2023-07-20 18:20] LABS: PLATELET ESTIMATE, MANUAL INCREASED (>450,000) (NORMAL); PLATELET MORPHOLOGY NORMAL APPEARANCE (NORMAL); SLIDE REVIEW? Indicated
== END 2023-07-20 23:59 | disposition home or self-care (01) ==
LOC: LAB 08:00
PROVIDERS: ATTEND Registered Nurse
DX: J44.9 Chronic obstructive pulmonary disease, unspecified (principal); D64.9 Anemia, unspecified
CPT/HCPCS: 36415; 80048; 85025

== ENCOUNTER 2023-10-21 14:40 | Outpatient (CLI) | payer MEDICARE, MEDICAID ==
[2023-10-21 15:18] LABS: BASOPHILS # (AUTO) 0.1 10^3/uL (0.0-0.1); BASOPHILS % (AUTO) 0.6 %; EOSINOPHILS # (AUTO) 0.6 10^3/uL (0.0-0.7); EOSINOPHILS % (AUTO) 4.3 %; HCT - HEMATOCRIT 32.7 % (37.0-47.0); HGB - HEMOGLOBIN 9.5 g/dL (12.0-16.0); LYMPHOCYTES # (AUTO) 2.8 10^3/uL (1.5-3.5); LYMPHOCYTES % (AUTO) 20.5 %; MEAN CORPUSCULAR HEMOGLOBIN 23.1 pg (27.0-31.0); MEAN CORPUSCULAR HGB CONC 29.1 g/dL (32.0-36.0); MEAN CORPUSCULAR VOLUME 79.4 fL (81.0-99.0); MEAN PLATELET VOLUME 10.6 fL (7.9-10.8); MONOCYTES # (AUTO) 1.1 10^3/uL (0.0-1.0); NEUTROPHILS % (AUTO) 66.2 %; PLT - PLATELET COUNT 464 10^3/uL (130-450); RED BLOOD COUNT 4.12 10^6/uL (4.20-5.40); RED CELL DISTRIBUTION WIDTH 17.4 % (12.0-15.0); WHITE BLOOD COUNT 13.6 x10^3/uL (4.8-10.8)
[2023-10-21 15:49] LABS: CALCIUM 9.3 mg/dL (8.5-10.3); CREATININE 0.3 mg/dL (0.6-1.3); POTASSIUM 3.7 mmol/L (3.5-4.5)
== END 2023-10-21 14:41 | disposition home or self-care (01) ==
LOC: LAB.R 14:40
PROVIDERS: ATTEND Registered Nurse
DX: D64.9 Anemia, unspecified (principal); I10 Essential (primary) hypertension; R79.9 Abnormal finding of blood chemistry, unspecified; Z13.9 Encounter for screening, unspecified
CPT/HCPCS: 80048; 85025

== ENCOUNTER 2023-11-18 08:00 | Outpatient (CLI) | payer MEDICARE, MEDICAID ==
[2023-11-19 00:30] LABS: BASOPHILS # (AUTO) 0.1 10^3/uL (0.0-0.1); BASOPHILS % (AUTO) 0.5 %; EOSINOPHILS # (AUTO) 0.6 10^3/uL (0.0-0.7); EOSINOPHILS % (AUTO) 4.1 %; LYMPHOCYTES # (AUTO) 4.3 10^3/uL (1.5-3.5); LYMPHOCYTES % (AUTO) 28.6 %; MEAN CORPUSCULAR HEMOGLOBIN 22.7 pg (27.0-31.0); MEAN CORPUSCULAR VOLUME 78.3 fL (81.0-99.0); MEAN PLATELET VOLUME 10.7 fL (7.9-10.8); MONOCYTES # (AUTO) 1.2 10^3/uL (0.0-1.0); MONOCYTES % (AUTO) 7.9 %; NEUTROPHILS # (AUTO) 8.8 10^3/uL (1.5-6.6); NEUTROPHILS % (AUTO) 58.6 %; PLT - PLATELET COUNT 415 10^3/uL (130-450); RED BLOOD COUNT 3.96 10^6/uL (4.20-5.40); RED CELL DISTRIBUTION WIDTH 17.7 % (12.0-15.0)
== END 2023-11-18 23:59 | disposition home or self-care (01) ==
LOC: LAB.R 08:00
PROVIDERS: ATTEND Registered Nurse
DX: D64.9 Anemia, unspecified (principal)
CPT/HCPCS: 80048; 85025

== ENCOUNTER 2023-11-21 08:00 | Outpatient (CLI) | payer MEDICARE, MEDICAID ==
[2023-11-21 17:18] LABS: BILIRUBIN,URINE NEGATIVE (NEGATIVE); CLARITY,URINE CLOUDY (CLEAR); GLUCOSE, URINE (UA) NEGATIVE (NEGATIVE); KETONES,URINE (UA) NEGATIVE (NEGATIVE); LEUKOCYTE ESTERASE, URINE SMALL (NEGATIVE); NITRITE,URINE POSITIVE (NEGATIVE); OCCULT BLOOD,URINE TRACE-INTA (NEGATIVE); PH,URINE 8.5 PH (5.0-7.5); PROTEIN,URINE 30 mg/dL (NEGATIVE); UROBILINOGEN,URINE 0.2 (NORMAL) E.U./dL (NORMAL)
[2023-11-21 17:27] LABS: BACTERIA,URINE Many /HPF (None Seen); CRYSTALS,URINE >50 Triple Phos /LPF; RBC,URINE 0-5 /HPF (0-5); SQUAMOUS EPITHELIAL CELL,UR RARE Squamous (<= Few); WBC,URINE >25 /HPF (0-5)
== END 2023-11-21 23:59 | disposition home or self-care (01) ==
LOC: LAB.R 08:00
DX: N31.9 Neuromuscular dysfunction of bladder, unspecified (principal)
CPT/HCPCS: 81001; 81003; 87086

== ENCOUNTER 2023-11-22 08:00 | Outpatient (CLI) | payer MEDICARE, MEDICAID ==
[2023-11-22 07:11] LABS: BASOPHILS # (AUTO) 0.1 10^3/uL (0.0-0.1); BASOPHILS % (AUTO) 0.7 %; EOSINOPHILS # (AUTO) 0.7 10^3/uL (0.0-0.7); EOSINOPHILS % (AUTO) 4.8 %; HCT - HEMATOCRIT 30.3 % (37.0-47.0); HGB - HEMOGLOBIN 8.6 g/dL (12.0-16.0); LYMPHOCYTES # (AUTO) 3.3 10^3/uL (1.5-3.5); LYMPHOCYTES % (AUTO) 22.5 %; MEAN CORPUSCULAR HEMOGLOBIN 22.4 pg (27.0-31.0); MEAN CORPUSCULAR HGB CONC 28.4 g/dL (32.0-36.0); MEAN CORPUSCULAR VOLUME 78.9 fL (81.0-99.0); MEAN PLATELET VOLUME 10.9 fL (7.9-10.8); MONOCYTES # (AUTO) 1.1 10^3/uL (0.0-1.0); MONOCYTES % (AUTO) 7.6 %; NEUTROPHILS # (AUTO) 9.4 10^3/uL (1.5-6.6); NEUTROPHILS % (AUTO) 63.9 %; PLT - PLATELET COUNT 405 10^3/uL (130-450); RED BLOOD COUNT 3.84 10^6/uL (4.20-5.40); RED CELL DISTRIBUTION WIDTH 17.7 % (12.0-15.0); WHITE BLOOD COUNT 14.6 x10^3/uL (4.8-10.8)
[2023-11-22 07:23] LABS: CALCIUM 9.2 mg/dL (8.5-10.3); CREATININE 0.3 mg/dL (0.6-1.3); POTASSIUM 3.2 mmol/L (3.5-4.5)
[2023-11-22 07:48] LABS: SLIDE REVIEW? Indicated
[2023-11-22 07:51] LABS: PLATELET MORPHOLOGY NORMAL APPEARANCE (NORMAL)
[2023-11-22 07:52] LABS: PLATELET ESTIMATE, MANUAL NORMAL (130-450,000) (NORMAL); RBC MORPHOLOGY (MULTIPLE) 1+ HYPOCHROMASIA (NORMAL); WBC MORPHOLOGY (MULTIPLE) NORMAL APPEARANCE (NORMAL)
== END 2023-11-22 23:59 | disposition home or self-care (01) ==
LOC: LAB.R 08:00
PROVIDERS: ATTEND Registered Nurse
DX: J44.9 Chronic obstructive pulmonary disease, unspecified (principal); D64.9 Anemia, unspecified
CPT/HCPCS: 80048; 85025

== ENCOUNTER 2023-12-14 09:46 | Outpatient (CLI) | payer MEDICARE, MEDICAID | END 2023-12-14 23:59 | disposition critical access hospital (66) | LOC: EMS 09:46 | DX: R51.9 Headache, unspecified (principal); M79.651 Pain in right thigh; R10.32 Left lower quadrant pain | CPT/HCPCS: A0425; A0429 ==

== ENCOUNTER 2023-12-14 15:47 | Outpatient (CLI) | payer MEDICARE, MEDICAID | END 2023-12-14 23:59 | disposition home or self-care (01) | LOC: EMS 15:47 | PROVIDERS: ATTEND Nurse Practitioner | DX: N39.0 Urinary tract infection, site not specified (principal); F03.90 Unspecified dementia, unspecified severity, without behavioral disturbance, psychotic disturbance, mood disturbance, and anxiety; G35 Multiple sclerosis; R41.0 Disorientation, unspecified; Z74.01 Bed confinement status | CPT/HCPCS: A0425; A0428 ==

== ENCOUNTER 2024-01-17 08:00 | Outpatient (CLI) | payer MEDICARE, MEDICAID ==
[2024-01-17 08:12] LABS: BASOPHILS # (AUTO) 0.1 10^3/uL (0.0-0.1); BASOPHILS % (AUTO) 0.5 %; EOSINOPHILS # (AUTO) 0.6 10^3/uL (0.0-0.7); EOSINOPHILS % (AUTO) 3.6 %; HCT - HEMATOCRIT 32.1 % (37.0-47.0); HGB - HEMOGLOBIN 9.3 g/dL (12.0-16.0); LYMPHOCYTES # (AUTO) 4.1 10^3/uL (1.5-3.5); LYMPHOCYTES % (AUTO) 24.5 %; MEAN CORPUSCULAR VOLUME 79.3 fL (81.0-99.0); MEAN PLATELET VOLUME 9.7 fL (7.9-10.8); NEUTROPHILS # (AUTO) 10.9 10^3/uL (1.5-6.6); PLT - PLATELET COUNT 526 10^3/uL (130-450); RED BLOOD COUNT 4.05 10^6/uL (4.20-5.40); RED CELL DISTRIBUTION WIDTH 17.9 % (12.0-15.0); WHITE BLOOD COUNT 16.8 x10^3/uL (4.8-10.8)
[2024-01-17 08:34] LABS: CALCIUM 9.4 mg/dL (8.5-10.3); CREATININE 0.3 mg/dL (0.6-1.3); POTASSIUM 3.2 mmol/L (3.5-4.5)
== END 2024-01-17 23:59 | disposition home or self-care (01) ==
LOC: LAB.R 08:00
PROVIDERS: ATTEND Family Medicine
DX: E87.6 Hypokalemia (principal); D64.9 Anemia, unspecified
CPT/HCPCS: 80048; 85025

== ENCOUNTER 2024-02-18 13:41 | Outpatient (CLI) | payer MEDICARE, MEDICAID ==
[2024-02-18 13:46] LABS: BASOPHILS # (AUTO) 0.1 10^3/uL (0.0-0.1); BASOPHILS % (AUTO) 0.8 %; EOSINOPHILS # (AUTO) 0.7 10^3/uL (0.0-0.7); HCT - HEMATOCRIT 30.3 % (37.0-47.0); HGB - HEMOGLOBIN 8.7 g/dL (12.0-16.0); LYMPHOCYTES # (AUTO) 3.9 10^3/uL (1.5-3.5); LYMPHOCYTES % (AUTO) 29.5 %; MEAN CORPUSCULAR HEMOGLOBIN 23.1 pg (27.0-31.0); MEAN CORPUSCULAR HGB CONC 28.7 g/dL (32.0-36.0); MEAN CORPUSCULAR VOLUME 80.4 fL (81.0-99.0); MEAN PLATELET VOLUME 9.7 fL (7.9-10.8); MONOCYTES # (AUTO) 1.1 10^3/uL (0.0-1.0); MONOCYTES % (AUTO) 8.2 %; NEUTROPHILS # (AUTO) 7.4 10^3/uL (1.5-6.6); NEUTROPHILS % (AUTO) 56.2 %; PLT - PLATELET COUNT 499 10^3/uL (130-450); RED BLOOD COUNT 3.77 10^6/uL (4.20-5.40); WHITE BLOOD COUNT 13.1 x10^3/uL (4.8-10.8)
[2024-02-18 14:23] LABS: SLIDE REVIEW? Indicated
[2024-02-18 14:25] LABS: PLATELET ESTIMATE, MANUAL INCREASED (>450,000) (NORMAL); PLATELET MORPHOLOGY NORMAL APPEARANCE (NORMAL)
== END 2024-02-18 13:42 | disposition home or self-care (01) ==
LOC: LAB.R 13:41
PROVIDERS: ATTEND Family Medicine
DX: D64.9 Anemia, unspecified (principal); Z87.440 Personal history of urinary (tract) infections
CPT/HCPCS: 85025

== ENCOUNTER 2024-03-02 08:00 | Outpatient (CLI) | payer MEDICARE, MEDICAID ==
[2024-03-02 03:52] LABS: CALCIUM 8.8 mg/dL (8.5-10.3); CREATININE 0.2 mg/dL (0.6-1.3); POTASSIUM 3.3 mmol/L (3.5-4.5)
== END 2024-03-02 23:59 | disposition home or self-care (01) ==
LOC: LAB.R 08:00
PROVIDERS: ATTEND Family Medicine
DX: I10 Essential (primary) hypertension (principal)
CPT/HCPCS: 80048

== ENCOUNTER 2024-05-24 10:11 | Inpatient (IN) ==
[2024-05-24 10:52] LABS: BASOPHILS # (AUTO) 0.1 10^3/uL (0.0-0.1); BASOPHILS % (AUTO) 0.3 %; EOSINOPHILS # (AUTO) 0.1 10^3/uL (0.0-0.7); EOSINOPHILS % (AUTO) 0.4 %; HCT - HEMATOCRIT 24.7 % (37.0-47.0); LYMPHOCYTES # (AUTO) 1.9 10^3/uL (1.5-3.5); LYMPHOCYTES % (AUTO) 9.8 %; MEAN CORPUSCULAR HEMOGLOBIN 20.3 pg (27.0-31.0); MEAN CORPUSCULAR HGB CONC 28.3 g/dL (32.0-36.0); MEAN CORPUSCULAR VOLUME 71.8 fL (81.0-99.0); MEAN PLATELET VOLUME 8.8 fL (7.9-10.8); MONOCYTES # (AUTO) 0.9 10^3/uL (0.0-1.0); MONOCYTES % (AUTO) 4.7 %; NEUTROPHILS # (AUTO) 16.3 10^3/uL (1.5-6.6); NEUTROPHILS % (AUTO) 84.3 %; PLT - PLATELET COUNT 743 10^3/uL (130-450); RED BLOOD COUNT 3.44 10^6/uL (4.20-5.40); RED CELL DISTRIBUTION WIDTH 17.4 % (12.0-15.0); WHITE BLOOD COUNT 19.4 x10^3/uL (4.8-10.8)
[2024-05-24 11:05] LABS: MAGNESIUM 1.7 mg/dL (1.7-2.3)
[2024-05-24 11:07] LABS: ALBUMIN/GLOBULIN RATIO 0.7 (1.0-2.2); BILIRUBIN,TOTAL 0.2 mg/dL (0.2-1.0); CALCIUM 8.7 mg/dL (8.5-10.3); CREATININE 0.2 mg/dL (0.6-1.3); POTASSIUM 3.4 mmol/L (3.5-4.5); TOTAL PROTEIN 7.6 g/dL (6.4-8.9)
[2024-05-24] MEDS: cefTRIAXone 2 GM VIAL IVP STA (11:18)
[2024-05-24] MEDS: SODIUM CHLORIDE 0.9% 500 ML IV ONE (11:18)
[2024-05-24 11:25] LABS: BILIRUBIN,URINE MODERATE (NEGATIVE); GLUCOSE, URINE (UA) NEGATIVE (NEGATIVE); KETONES,URINE (UA) 15 mg/dL (NEGATIVE); LEUKOCYTE ESTERASE, URINE MODERATE (NEGATIVE); NITRITE,URINE POSITIVE (NEGATIVE); OCCULT BLOOD,URINE LARGE (NEGATIVE); PROTEIN,URINE 100 mg/dL (NEGATIVE); UROBILINOGEN,URINE 0.2 (NORMAL) E.U./dL (NORMAL)
--- NOTE | 2024-05-24 11:26 | XRAY Report ---
PROCEDURE: XR Chest 1V INDICATIONS: chest pain TECHNIQUE: One view of the chest was acquired. COMPARISON: Chest radiographs 04/29/2023 FINDINGS: Surgical changes and devices: None. Lungs and pleura: Complete opacification of the right hemithorax. Left lung is clear. No pneumothora x. Mediastinum: Patient is slightly rotated towards the left, but no definite mediastinal shift. Bones and chest wall: No suspicious bony lesions. Overlying soft tissues appear unremarkable. IMPRESSION: Complete opacification of the right hemithorax, likely related to large pleural effusion. Reviewed by: Spencer Hassan MD on 05/24/2024 11:24 AM [facility] Approved by: Spencer Hassan MD on 05/24/2024 11:24 AM PST Station ID: [id number]
[2024-05-24 11:28] LABS: CLARITY,URINE CLOUDY (CLEAR); WBC,URINE >25 /HPF (0-5)
[2024-05-24 11:29] LABS: BACTERIA,URINE Many /HPF (None Seen); RBC,URINE TNTC /HPF (0-5); SQUAMOUS EPITHELIAL CELL,UR FEW Squamous (<= Few); WBC CLUMPS,URINE PRESENT
--- NOTE | 2024-05-24 12:19 | ED Physician Documentation ---
History of Present Illness Stated complaint Stated Complaint: ALOC/SOA Chief complaint Chief Complaint: General History obtained from History obtained from: Family and EMS Additonal information Additional information: Kenisha Alvarado arrives to our emergency department by ambulance from [facility]. She is brought here with altered level of consciousness and hypoxia. Medics note bibasilar rhonchi and what appears to be clearing of secretions. The patient is unable to give any specific history. She has a history of dementia and she has an indwelling Good catheter and has had prior catheter associated sepsis. [place] Coma Scale Assess Eye opening: To Voice Verbal response: Confused Motor response: Localizes to Pain Total score: 12 Review of Systems The patient is unable to cooperate with any specific history secondary to altered level of consciousness Meds/Allgy Home Medications Ambulatory Orders Medication Instructions Recorded Confirmed cholecalciferol (vitamin D3) 50 2,000 unit PO DAILY 01/28/18 05/24/24 mcg (2,000 unit) capsule (Vitamin D3) calcium carbonate 1,000 mg PO Q4HR PRN Heartburn 11/09/18 05/24/24 sennosides 8.6 mg tablet (Senna 8.6 mg PO BID PRN Constipation 06/07/19 05/24/24 Lax) albuterol sulfate 90 mcg/actuation 2 puff inhalation Q4H PRN 08/23/20 05/24/24 aerosol inhaler (Ventolin HFA) Shortness Of Air/Wheezing fluticasone propionate 115 1 puff inhalation BID 12/30/20 05/24/24 mcg-salmeterol 21 mcg/actuation HFA inhaler (Advair HFA) hydrochlorothiazide 50 mg tablet 50 mg PO DAILY 12/30/20 05/24/24 d-mannose 500 mg capsule (AZO 1,000 mg PO DAILY 01/26/21 05/24/24 D-Mannose) mineral oil (Fleet Mineral Oil 1 ea RC DAILY PRN Constipation 05/21/21 05/24/24 enema) acetaminophen 325 mg tablet (Aphen) 650 mg PO Q4H PRN Mild Pain Or 01/30/22 05/24/24 Fever>38c(100.4f) ferrous sulfate 325 mg (65 mg 325 mg PO DAILYWM 01/30/22 05/24/24 iron) tablet,delayed release atorvastatin 40 mg tablet 40 mg PO QPM 02/03/22 05/24/24 baclofen 10 mg tablet 10 mg PO TID 02/03/22 05/24/24 fentanyl 25 mcg/hr transdermal 1 ea transdermal Q3D 10/12/22 05/24/24 patch docusate sodium 100 mg capsule 100 mg PO 0800,1200 10/13/22 05/24/24 (Dulcolax Stool Softener (docusate)) guaifenesin 100 mg/5 mL oral 5 ml PO Q5H PRN Cough 10/13/22 05/24/24 liquid (Chest Congestion Relief) polyethylene glycol 3350 17 gram 17 g PO DAILY 10/13/22 05/24/24 oral powder packet aspirin 81 mg tablet,delayed 81 mg PO DAILY 04/16/23 05/24/24 release vdncyyipxtoo-xnoqszgw-ifid 1 tab PO DAILY #30 tabs 04/27/23 05/24/24 fumarate 19 mg-folic acid 400 mcg tablet (Therapeutic-M) naloxone 4 mg/actuation nasal 1 inh inhalation PRN PRN As Needed 12/14/23 05/24/24 spray (Narcan) Per Provider Orders bisacodyl 10 mg rectal suppository 10 mg MS DAILY PRN constipation 05/24/24 05/24/24 (Dulcolax (bisacodyl)) carboxymethylcellulose sodium 1 % 2 drp ophthalmic (eye) TID dry eyes 05/24/24 05/24/24 eye gel in a dropperette (Refresh Celluvisc) duloxetine 30 mg capsule,delayed 30 mg PO DAILY for depression 05/24/24 05/24/24 release oxybutynin chloride 10 mg 10 mg PO DAILY 05/24/24 05/24/24 tablet,extended release 24 hr potassium chloride 10 mEq 40 meq PO DAILY 05/24/24 05/24/24 capsule,extended release Allergies Allergies Allergy/AdvReac Type Severity Reaction Status Date / Time nystatin Allergy Unknown Verified 05/24/24 10:27 Penicillins Allergy Unknown Verified 05/24/24 10:27 [facility] Social History Social History Smoking Status: Unknown if ever smoked If you are a former smoker, when did you quit? (Date/Year): 1999 Number of Years Smoked: 10 How many cigarettes a day do you smoke? (20 cigarettes=1 Pk): 30 Do you dip or chew tobacco?: No Patient requests smoking cessation consult: No Initiate information on smoking cessation: No Living arrangement: Assisted living Living Condition: With caregiver(s) Relationship: Level: Dependent Home Mobility Equipment: Wheelchair History of Abuse: No Are you sexually active?: No POLST Patient has POLST: Yes POLST Status: DNR (Advanced care planning. Patient does have D POA which is her son Adan, has a POLST in place with the OSIEL and selective treatments. She is quite thoughtful and pragmatic and wane benefits and burdens of medical inter ventions and appointments. We will continue to anticipate decline in the future, ) Exam Exam 74-year-old female laying with her eyes closed her mouth open and breathing slowly. She does have an audible gurgle associated with her breathing that sounds like an upper respiratory obstruction. She does not appear to be struggling for breath. Blood pressure is 114/73 with a pulse of 103 respirations of 14 O2 saturation is 98% on 2 L nasal cannula. She does not respond to verbal initially following administration of fluid she is able to open her eyes and nod that she is able to hear us.She has pale mucous membranes and dry mucous membranes. She has air movement present bilaterally with occasional transmitted upper airway sounds. Chest inspection of chest normal and palpation of chest normal Respiratory breath sounds equal bilaterally and normal respiratory effort Lung sounds with periodic rhonchi consistent with upper airway transmitted sounds. Despite the large pleural effusion breath sounds are heard in the right side to the base. Cardiovascular Mild tachycardia without murmur normal rhythm Gastrointestinal abdomen normal to inspection Neurology no focal motor deficit noted The patient is able to cooperate to indicate that she would like to receive treatment after she has received some fluids. She is not able to articulate words. Results Vitals Vitals: Vital Signs - 24 hr 05/24/24 10:24 05/24/24 10:54 05/24/24 10:54 Temperature 36.2 C L 36.3 C L Temperature Source Temporal Artery Scan Pulse Rate 115 H 110 H Respiratory Rate 26 H 17 Blood Pressure 111/81 92/51 L O2 Saturation 98 97 Oxygen Delivery Method Nasal Cannula O2 Source Nasal cannula Nasal cannula If not protocol: Oxygen Flow, liters/minute 4 4 4 Pain Intensity 0 0 05/24/24 11:23 Temperature Temperature Source Pulse Rate 103 H Respiratory Rate 14 Blood Pressure 114/73 O2 Saturation 98 Oxygen Delivery Method O2 Source Nasal cannula If not protocol: Oxygen Flow, liters/minute 2 Pain Intensity 0 Oxygen O2 Source Nasal cannula Labs Labs: Laboratory Tests 05/24/24 05/24/24 05/24/24 10:35 10:37 11:08 WBC 19.4 H RBC 3.44 L Hgb 7.0 L* Hct 24.7 L MCV 71.8 L MCH 20.3 L MCHC 28.3 L RDW 17.4 H Plt Count 743 H MPV 8.8 Neut # (Auto) 16.3 H Lymph # (Auto) 1.9 [place] # (Auto) 0.9 Eos # (Auto) 0.1 Baso # (Auto) 0.1 Absolute Nucleated RBC 0.00 Nucleated RBC % 0.0 Sodium 129 L Potassium 3.4 L Chloride 86 L Carbon Dioxide 39 H* Anion Gap 4.0 L BUN 12 Creatinine 0.2 L Estimated GFR (MDRD) 345 Glucose 110 H Lactic Acid 0.7 Calcium 8.7 Magnesium 1.7 Total Bilirubin 0.2 AST 11 ALT 6 L Alkaline Phosphatase 79 Total Protein 7.6 Albumin 3.0 L Globulin 4.6 H Albumin/Globulin Ratio 0.7 L Lipase 12 Urine Color BROWN Urine Clarity CLOUDY Urine pH 7.0 Ur Specific [place] 1.025 Urine Protein 100 H Urine Glucose (UA) NEGATIVE Urine Ketones 15 H Urine Occult Blood LARGE H Urine Nitrite POSITIVE H Urine Bilirubin MODERATE H Urine Urobilinogen 0.2 (NORMAL) Ur Leukocyte Esterase MODERATE H Urine RBC TNTC H Urine WBC >25 H Urine WBC Clumps PRESENT Ur Squamous Epith Cells FEW Squamous Urine Bacteria Many H Ur Microscopic Review INDICATED Urine Culture Comments INDICATED Blood Type Recheck O POSITIVE Crossmatch IS Only 05/24/24 11:35 WBC RBC Hgb Hct MCV MCH MCHC RDW Plt Count MPV Neut # (Auto) Lymph # (Auto) [place] # (Auto) Eos # (Auto) Baso # (Auto) Absolute Nucleated RBC Nucleated RBC % Sodium Potassium Chloride Carbon Dioxide Anion Gap BUN Creatinine Estimated GFR (MDRD) Glucose Lactic Acid Calcium Magnesium Total Bilirubin AST ALT Alkaline Phosphatase Total Protein Albumin Globulin Albumin/Globulin Ratio Lipase Urine Color Urine Clarity Urine pH Ur Specific [place] Urine Protein Urine Glucose (UA) Urine Ketones Urine Occult Blood Urine Nitrite Urine Bilirubin Urine Urobilinogen Ur Leukocyte Esterase Urine RBC Urine WBC Urine WBC Clumps Ur Squamous Epith Cells Urine Bacteria Ur Microscopic Review Urine Culture Comments Blood Type Recheck Crossmatch IS Only See Detail Rads (name of study) chest: Relevant Findings:: Prelim report reviewed, EMP independent interpretation of test and See rad report Interpretation: Impression: Complete opacification of the right hemithorax, likely related to large pleural effusion. PD Medical Decision Making ED course Complexity details: reviewed old records, reviewed results, re-evaluated patient, considered differential and d/w family Reviewed Lab Results: We reviewed a complete blood count which showed an elevated white blood cell count of 19.4 the hemoglobin was markedly depressed at 7 hematocrit depressed at 24.7. Her priors are 8.7 and 30.3 respectively from 3 months ago. Platelets are elevated at 743,000 differential shows an increase in neutrophils I interpreted these laboratory tests that used to indicate the patient has profound anemia and this is a new finding for the patient as well as a markedly elevated white blood cell count consistent with her diagnosis of severe sepsis. Her chemistries were remarkable for a serum sodium low at 129 and potassium low at 3.4 and carbon dioxide elevated at 39. BUN and creatinine are normal as are the liver functions. Urinalysis again shows cloudy brown urine with large occult blood positive for nitrite moderate bilirubin moderate leukocyte esterase too numerous to count red blood cells and greater than 25 white blood cells per high-powered field with clumps of white blood cells many bacteria and few squamous cells. She appears to have this evidence of infection by evaluation of the urine from a catheterized specimen. ED course: Kenisha Alvarado is a 74-year-old female with advanced dementia who is a resident of [facility] who presents to the emergency department today with altered mental status hypoxia and rhonchi. She arrives to the emergency department unable to give any specific history. She is found to have a large pleural effusion on the right side which was not present previously. In addition she is found to have decreased hemoglobin and hematocrit and an elevated white blood cell count as well as evidence of urinary tract infection from an indwelling Good catheter. She is hypotensive on arrival to the emergency department and with altered mental status. She is a limited additional interventions patient. I have spoken with the patient's son who indicates that she would be willing to receive blood and treatment. She is administered 2 g of Rocephin intravenously and IV fluid is begun.Admission to the hospital for sepsis is sought. Discharge Plan Discharge Patient Disposition: [facility] DC/Xfer Condition: Critical Clinical Impression: Pleural effusion Urinary tract infection Qualifiers: Urinary tract infection type: catheter-associated UTI Indwelling urinary catheter type: indwelling urethral catheter Encounter type: initial encounter Qualified Code(s): T83.511A - Infection and inflammatory reaction due to indwelling urethral catheter, initial encounter Sepsis Qualifiers: Sepsis type: sepsis due to unspecified organism Sepsis acute organ dysfunction status: with acute organ dysfunction Severe sepsis acute organ dysfunction type: acute respiratory failure Acute respiratory failure type: with hypoxia Severe sepsis shock status: unspecified Qualified Code(s): A41.9 - Sepsis, unspecified organism
--- NOTE | 2024-05-24 15:35 | HISTORY & PHYSICAL EXAMINATION ---
Chief Complaint Chief Complaint Chief Complaint: hypoxia and AMS History of Present Illness Admitted From Admitted From:: ED History Obtained From Records Reviewed: Palliative Care note from 2018 History obtained from: . Review of records discussion with emergency department physician Exam Limitations: patient is comatose History of Present Illness HPI Comment/Other: Presents to the emergency department via ambulance from care facility with altered level of consciousness and hypoxia. She is unable to give any history. She has a history of dementia with indwelling Good catheter and repeated episodes of urosepsis. Review of previous palliative care consultation shows that patient has had multiple sclerosis for many years with neurogenic bowel and bladder as well as chronic pain. She has had a baclofen pump in the past in fact it is still implanted and she is on fentanyl 25 mcg transdermal patch for years and years. History of present illness and review of systems is limited by the fact that the patient is unable to communicate. Meds/Allgy Home Medications Ambulatory Orders Medication Instructions Recorded Confirmed cholecalciferol (vitamin D3) 50 2,000 unit PO DAILY 01/28/18 05/24/24 mcg (2,000 unit) capsule (Vitamin D3) calcium carbonate 1,000 mg PO Q4HR PRN Heartburn 11/09/18 05/24/24 sennosides 8.6 mg tablet (Senna 8.6 mg PO BID PRN Constipation 06/07/19 05/24/24 Lax) albuterol sulfate 90 mcg/actuation 2 puff inhalation Q4H PRN 08/23/20 05/24/24 aerosol inhaler (Ventolin HFA) Shortness Of Air/Wheezing fluticasone propionate 115 1 puff inhalation BID 12/30/20 05/24/24 mcg-salmeterol 21 mcg/actuation HFA inhaler (Advair HFA) hydrochlorothiazide 50 mg tablet 50 mg PO DAILY 12/30/20 05/24/24 d-mannose 500 mg capsule (AZO 1,000 mg PO DAILY 01/26/21 05/24/24 D-Mannose) mineral oil (Fleet Mineral Oil 1 ea RC DAILY PRN Constipation 05/21/21 05/24/24 enema) acetaminophen 325 mg tablet (Aphen) 650 mg PO Q4H PRN Mild Pain Or 01/30/22 05/24/24 Fever>38c(100.4f) ferrous sulfate 325 mg (65 mg 325 mg PO DAILYWM 01/30/22 05/24/24 iron) tablet,delayed release atorvastatin 40 mg tablet 40 mg PO QPM 02/03/22 05/24/24 baclofen 10 mg tablet 10 mg PO TID 02/03/22 05/24/24 fentanyl 25 mcg/hr transdermal 1 ea transdermal Q3D 10/12/22 05/24/24 patch docusate sodium 100 mg capsule 100 mg PO 0800,1200 10/13/22 05/24/24 (Dulcolax Stool Softener (docusate)) guaifenesin 100 mg/5 mL oral 5 ml PO Q5H PRN Cough 10/13/22 05/24/24 liquid (Chest Congestion Relief) polyethylene glycol 3350 17 gram 17 g PO DAILY 10/13/22 05/24/24 oral powder packet aspirin 81 mg tablet,delayed 81 mg PO DAILY 04/16/23 05/24/24 release itciqdeyqipl-ywlgzmnp-cjho 1 tab PO DAILY #30 tabs 04/27/23 05/24/24 fumarate 19 mg-folic acid 400 mcg tablet (Therapeutic-M) naloxone 4 mg/actuation nasal 1 inh inhalation PRN PRN As Needed 12/14/23 05/24/24 spray (Narcan) Per Provider Orders bisacodyl 10 mg rectal suppository 10 mg [place] DAILY PRN constipation 05/24/24 05/24/24 (Dulcolax (bisacodyl)) carboxymethylcellulose sodium 1 % 2 drp ophthalmic (eye) TID dry eyes 05/24/24 05/24/24 eye gel in a dropperette (Refresh Celluvisc) duloxetine 30 mg capsule,delayed 30 mg PO DAILY for depression 05/24/24 05/24/24 release oxybutynin chloride 10 mg 10 mg PO DAILY 05/24/24 05/24/24 tablet,extended release 24 hr potassium chloride 10 mEq 40 meq PO DAILY 05/24/24 05/24/24 capsule,extended release Allergies Allergies Allergy/AdvReac Type Severity Reaction Status Date / Time nystatin Allergy Unknown Verified 05/24/24 10:27 Penicillins Allergy Unknown Verified 05/24/24 10:27 [facility] Social History Social History Smoking Status: Never smoker If you are a former smoker, when did you quit? (Date/Year): 1999 Number of Years Smoked: 10 How many cigarettes a day do you smoke? (20 cigarettes=1 Pk): 30 Do you dip or chew tobacco?: No Patient requests smoking cessation consult: No Initiate information on smoking cessation: No Living arrangement: Assisted living Living Condition: With caregiver(s) Relationship: Level: Dependent Home Mobility Equipment: Wheelchair History of Abuse: No Are you sexually active?: No POLST Patient has POLST: No POLST Status: very limited intervention (Advanced care planning. Patient does have D POA which is her son Adan, has a POLST in place with the OSIEL and selective treatments. She is quite thoughtful and pragmatic and wane benefits and burdens of medical interventions and appointments. We will continue to anticipate decline in the future, ) Review of Systems Status of ROS: unobtainable due to mental status Prior Level of Functionality: bed bound resident of nursing facility. Exam Exam chronically ill appearing. does not respond to painful stimuli. HENMT normocephalic fungating lesion on the left temporal area Eyes no scleral icterus pupils small and non reactive Neck/C-Spine trachea midline Lymph no lymphadenopathy noted Chest no masses on chest wall. Respiratory intermittent apnea. decreased breath sounds bilaterally, there are rhonchi in the upper lung benjamin Cardiovascular normal heart rate noted Gastrointestinal abdomen soft to palpation grimaces with abdominal palpation. in the left lower quadrant, there is a palpable medical investigator Genitourinary no CVA tenderness Extremities dorsiflexion contractures. Neurology GCS 3 Psychiatry comatose Skin skin color normal and skin turgor abnormal Sepsis Event Note (H) Evaluation Current Stage of Sepsis: Septic shock Possible source of Sepsis: positive Pulmonary and Genitourinary Conclusion/Plan Problem List (1) Sepsis: Plan: Severe sepsis with altered mental status, leukocytosis of 19, hypotension. I have discussed this patient with her family. Both her son Adan and her sister Alisha. Her goals of care are DNR DNI without invasive measures. In discussing her with them the decision was made to continue antibiotics and supportive IV fluids. We will not start pressors. And we will not intubate. We will not do invasive procedures such as thoracentesis. We will support her with oxygen. Qualifiers: Acute respiratory failure type: with hypoxia Sepsis acute organ dysfunction status: with acute organ dysfunction Sepsis type: sepsis due to unspecified organism Severe sepsis acute organ dysfunction type: acute respiratory failure Severe sepsis shock status: unspecified Qualified Code(s): A41.9 - Sepsis, unspecified organism; R65.20 - Severe sepsis without septic shock; J96.01 - Acute respiratory failure with hypoxia (2) Pleural effusion: Plan: CT of the chest shows a large pleural effusion which opacifies the right hemithorax with complete atelectasis of the right lung. There is some appearance of the fluid which suggests a blood-tinged effusion there is leftward mediastinal shift. Once again discussion with family is that there should be no invasive procedures. This patient will not undergo thoracentesis. (3) Urinary tract infection: Plan: In the setting of neurogenic bladder and chronic recurrent urinary tract infections. Urine culture is pending. Urinalysis shows a large amount of blood, positive nitrates moderate bilirubin moderate leukocyte Estrace with greater than 25 WBCs per high-powered field. She has indicators of sepsis with hypotension mild tachycardia to the 110s she is not running a fever. She has a leukocytosis of 19. Qualifiers: Encounter type: initial encounter Indwelling urinary catheter type: i ndwelling urethral catheter Urinary tract infection type: catheter-associated UTI Qualified Code(s): T83.511A - Infection and inflammatory reaction due to indwelling urethral catheter, initial encounter; N39.0 - Urinary tract infection, site not specified (4) Hypoxia: Plan: Acute hypoxia. She is currently on 2 L by nasal cannula satting at 98% she has some intermittent apnea that I noted on exam. She has a recorded respiratory rate of 10 but then the next hour has recorded respiratory rate of 18. Will continue with oxygen support as a palliative measure. (5) Acute respiratory failure with hypoxia: Plan: Acute hypoxic respiratory failure most likely due to right sided pleural effusion. (6) Chronic indwelling Good catheter: Plan: Chronic neurogenic bladder secondary to her MS. (7) Metabolic encephalopathy: Plan: Discussion with her son that her mental status has been decreasing for at least 6 months. He last saw her 6 months ago and she mentioned that this might be the last time she sees him. She knows that she is losing her mind. I think she is acutely septic with acute encephalopathy which may improve if her sepsis improves. (8) Leukocytosis: Plan: White blood cell count of 19. Will repeat CBC in the a.m. Qualifiers: Leukocytosis type: other Qualified Code(s): D72.828 - Other elevated white blood cell count (9) Multiple sclerosis: Plan: Severe and progressive for many many years. Looks like she has been in a care facility at least since 2018 when I am able to find a palliative care consultation note. She has neurogenic bowel and bladder. She is nonambulatory. Lab Results 05/24/24 10:35 05/24/24 10:35
--- NOTE | 2024-05-24 16:09 | CT Report ---
PROCEDURE: CT Chest WO INDICATIONS: pleural effusion R TECHNIQUE: A CT scan of the chest was performed. Intravenous contrast media was not administered. Images were re corded and evaluated at appropriate window settings. Reformats: axial MIP of the chest, coronal and s agittal. For radiation dose reduction, the following was used: automated exposure control, adjustment of mA and/or kV according to patient size. COMPARISON: Chest radiographs 05/24/2024. FINDINGS: Image quality: Diagnostic. Chest wall and lower neck: No thyroid nodule which requires sonographic follow up. No axillary or sup raclavicular adenopathy by size. Spinal stimulator device is present with lead in the lower thoracic spine. Lungs and pleura: Large right pleural effusion opacifies the right hemithorax. There is complete lucila apse of the right lung. Trace hyperdense material is seen layering posteriorly in the right hemithora x. Left lung is clear. No pneumothorax. No consolidation. No pleural effusions. No pneumothorax. No suspicious pulmonary nodules which require follow up. Mediastinum: Mild leftward midline shift. Heart size is normal. No pericardial effusion. No large ves jared abnormality. No mediastinal adenopathy by size criteria. Bones: Heterogeneous lucency is seen within the lateral portion of the right 1st rib. No definite adj acent soft tissue mass. No other aggressive osseous lesion is seen. Levoconvex curvature of the thora cic spine. Upper Abdomen: Large calculus in the right renal pelvis measuring up to 18 mm without significant hyd ronephrosis. Additional 6 mm calculus at the inferior pole.. IMPRESSION: 1.Large pleural effusion opacifies the right hemithorax with complete atelectasis of the right lung. Trace hyperdense material posteriorly suggests the effusion may be blood-tinged. Mild leftward medias tinal shift. 2.Lucency lesion at the lateral aspect of the right 1st rib injury secondary to subacute fracture deandra mariana metastatic disease or myeloma versus primary osseous lesion. Reviewed by: Spencer Hassan MD on 05/24/2024 4:08 PM PST Approved by: Spencer Hassan MD on 05/24/2024 4:08 PM PST Station ID: [id number]
--- NOTE | 2024-05-24 17:34 | PHARMACY PROGRESS NOTE ---
Best Possible Medication History Admit Date and Time: Processed by: Pharmacy Medications reviewed in ED?: No Medication History completed: Yes Patient Interview: Pt unable to participate Secondary Source(s): Facility MAR as ONLY source [facility] Statement: As the person ultimately responsible for medication therapy, providers are able to order a medication from an existing home medication list in [facility] via the "Reconcile Routine" prior to Confirmation of that medication by account support rep. Such practice is discouraged except when the physician, in their clinical judgment, deems that a medical need exists for a medication without regard to previous use.
[2024-05-24] MEDS ORDERED: BISACODYL 10 MG SUPP PR PRN (18:39)
[2024-05-24] MEDS ORDERED: ONDANSETRON 4 MG/2 ML VIAL IVP PRN (18:39)
[2024-05-24] MEDS: SODIUM CHLORIDE 0.9% 1,000 ML IV SCH (19:27)
[2024-05-24] MEDS: SODIUM CHLORIDE FLUSH 0.9% 10 ML SYRINGE IVP SCH (19:27)
[2024-05-24] MEDS: HEPARIN 5,000 UNIT/ML VIAL SUBQ SCH (21:02)
[2024-05-25 06:09] LABS: BASOPHILS # (AUTO) 0.1 10^3/uL (0.0-0.1); BASOPHILS % (AUTO) 0.5 %; EOSINOPHILS # (AUTO) 0.3 10^3/uL (0.0-0.7); EOSINOPHILS % (AUTO) 1.4 %; HCT - HEMATOCRIT 30.8 % (37.0-47.0); HGB - HEMOGLOBIN 8.9 g/dL (12.0-16.0); LYMPHOCYTES # (AUTO) 1.8 10^3/uL (1.5-3.5); LYMPHOCYTES % (AUTO) 10.3 %; MEAN CORPUSCULAR HGB CONC 28.9 g/dL (32.0-36.0); MEAN CORPUSCULAR VOLUME 76.2 fL (81.0-99.0); MEAN PLATELET VOLUME 8.9 fL (7.9-10.8); MONOCYTES % (AUTO) 5.5 %; NEUTROPHILS # (AUTO) 14.4 10^3/uL (1.5-6.6); NEUTROPHILS % (AUTO) 81.7 %; PLT - PLATELET COUNT 630 10^3/uL (130-450); RED BLOOD COUNT 4.04 10^6/uL (4.20-5.40); WHITE BLOOD COUNT 17.6 x10^3/uL (4.8-10.8)
[2024-05-25 06:22] LABS: CALCIUM 8.4 mg/dL (8.5-10.3); CREATININE 0.2 mg/dL (0.6-1.3); POTASSIUM 3.2 mmol/L (3.5-4.5)
[2024-05-25] MEDS ORDERED: cefTRIAXone 1 GM in SODIUM CHLORIDE 0.9% MINIBAG 100 ML IV SCH (09:00)
[2024-05-25] MEDS: CEFEPIME 2 GM in SODIUM CHLORIDE 0.9% MINIBAG 100 ML IV SCH (11:02)
--- NOTE | 2024-05-25 12:02 | PROVIDER PROGRESS NOTE ---
Subjective Prog Note Date Prog Note Date: 05/25/24 Subjective Pt reports feeling: Improved Subjective: Patient arouses and will sometimes answer questions, but cannot hold a full conversation. Per sister at bedside, this is not her normal state of mentation Current Medications Current Medications Current Medications: Current Medications Generic Name Dose Route Start Last Admin Trade Name Freq PRN Reason Stop Dose Admin Albuterol 2.5 mg 05/24/24 18:55 Albuterol Neb 2.5 Mg/3 Ml INH RTQ4H PRN Shortness Of Air/Wheezing Bisacodyl 10 mg 05/24/24 18:39 Bisacodyl 10 Mg Supp [place] DAILY PRN constipation Heparin Sodium (Porcine) 5,000 unit 05/24/24 21:00 05/24/24 21:02 Heparin 5,000 Unit/Ml Vial SUBQ 5,000 unit BID JOSE FRANCISCO Administration Sodium Chloride 1,000 mls @ 100 mls/hr 05/24/24 18:39 05/25/24 07:05 Normal Saline 0.9% IV 100 mls/hr .Q10H JOSE FRANCISCO Administration Cefepime HCl 2 gm/ Sodium 100 mls @ 200 mls/hr 05/25/24 10:00 05/25/24 11:02 Chloride IV 200 mls/hr BID JOSE FRANCISCO Administration Ketorolac Tromethamine 15 mg 05/25/24 10:11 Ketorolac 15 Mg/Ml Vial IVP 05/30/24 10:10 Q6HR PRN Severe Pain (Level 7-10) Ondansetron HCl 4 mg 05/24/24 18:39 Ondansetron 4 Mg/2 Ml Vial IVP Q6HR PRN Nausea / Vomiting Sodium Chloride 10 ml 05/24/24 18:39 Sodium Chloride Flush 0.9% 10 Ml Syringe IVP PRN PRN NEEDED PER PROVIDER ORDERS Sodium Chloride 10 ml 05/24/24 18:39 05/25/24 11:06 Sodium Chloride Flush 0.9% 10 Ml Syringe IVP 10 ml 0100,0900,1700 JOSE FRANCISCO Administration Objective Vital Signs/Intake & Output Reviewed Vital Signs: Yes Vital Signs: Vital Signs x48h Temp Pulse Resp BP Pulse Ox O2 Flow Rate 05/25/24 08:31 36.4 C L 109 H 16 104/62 97 2 05/25/24 07:00 6 05/25/24 04:10 36.4 C L 106 H 16 104/59 L 98 2 Intake & Output: Intake & Output 05/23/24 05/24/24 05/25/24 05/26/24 05:59 05:59 05:59 05:59 Intake Total 1800 / 1800 Output Total 350 / 350 650 / 650 Balance 1450 / 1450 -650 / -650 Weight (kg) 60 kg Objective General Appearance: positive Lethargic Eyes Bilateral: positive Normal inspection ENT: positive ENT inspection nml Neck: positive Nml inspection Respiratory: positive Chest non-tender; negative Breath sounds nml (Absent on right) Cardiovascular: positive Regular rate & rhythm Abdomen: positive Tenderness (Mild, vague tenderness throughout abdomen on palpation) Skin: positive Color nml and Other Extremities: positive No pedal edema Neurologic/Psychiatric: positive Disoriented to person, Disoriented to place and Disoriented to time Lab Results 05/25/24 05:55 05/25/24 05:55 Other Labs: Lab Results x24hrs 05/25/24 05/24/24 Range/Units 05:55 11:35 WBC 17.6 H (4.8-10.8) x10^3/uL RBC 4.04 L (4.20-5.40) 10^6/uL Hgb 8.9 L (12.0-16.0) g/dL Hct 30.8 L (37.0-47.0) % MCV 76.2 L (81.0-99.0) fL MCH 22.0 L (27.0-31.0) pg MCHC 28.9 L (32.0-36.0) g/dL RDW 18.0 H (12.0-15.0) % Plt Count 630 H (130-450) 10^3/uL MPV 8.9 (7.9-10.8) fL Neut # (Auto) 14.4 H (1.5-6.6) 10^3/uL Lymph # (Auto) 1.8 (1.5-3.5) 10^3/uL [place] # (Auto) 1.0 (0.0-1.0) 10^3/uL Eos # (Auto) 0.3 (0.0-0.7) 10^3/uL Baso # (Auto) 0.1 (0.0-0.1) 10^3/uL Absolute Nucleated RBC 0.00 x10^3/uL Nucleated RBC % 0.0 /100WBC Sodium 136 (135-145) mmol/L Potassium 3.2 L (3.5-4.5) mmol/L Chloride 94 L (101-111) mmol/L Carbon Dioxide 36 H (21-32) mmol/L Anion Gap 6.0 (6-13) BUN 9 (6-20) mg/dL Creatinine 0.2 L (0.6-1.3) mg/dL Estimated GFR (MDRD) 345 (>89) Glucose 84 (74-104) mg/dL Calcium 8.4 L (8.5-10.3) mg/dL Blood Type O POSITIVE Antibody Screen NEGATIVE Crossmatch IS Only See Detail Diagnostic Imaging Diagnostic Imaging Results: positive Final report reviewed Diagnostic Imaging Comments: CT chest with large pleural effusion which completely opacifies the right hemithorax, complete atelectasis of right lung. Sepsis Event Note (H) Evaluation Current Stage of Sepsis: Septic shock Possible source of Sepsis: positive Pulmonary and Genitourinary Assessment/Plan Problem List (1) Pleural effusion: Impression: CT chest with large pleural effusion which opacifies the entire right hemithorax with complete atelectasis of the right lung. Fluctuance and the opacity of the effusion suggests it is blood-tinged. Multiple discussions have been had with family by prior provider. Family reports that she would not want to undergo any procedures and the only management she would want is antibiotics and supportive IV fluids. Her mentation is somewhat improved today, and I have passed this onto family. I will continue to optimize her medically, and will readdress this if and when her mentation improves (2) Metabolic encephalopathy: Impression: Patient is chronically ill and very medically complex. There are a multitude of reasons why she could be confused. She has a documented history of MS. She met sepsis criteria on admission, but unsure if this is actually a septic picture. She has been afebrile. She has had increased respiratory rate and pulse, but this is likely secondary to a nonfunctioning right lung. She did have some electrolyte abnormalities such as low sodium which has corrected with IV saline. Her mentation is improved today, she tracks with her eyes and will answer some simple questions. I will continue supportive care with IV fluid resuscitation. I have ordered a nursing swallow screen to see if she can tolerate p.o. Nurse was unable to complete this due to poor mentation. If this does not resolve, she may need palliative care consult for hospice placement as this could possibly be a progression of dementia/MS (3) Sepsis: Impression: Treating this is sepsis given her leukocytosis of 19, hypotension, altered mental status. Unsure if this is actually sepsis as she has been afebrile. Her UA did show Pseudomonas, but she has a chronic indwelling Good and this could be colonization. Her mentation is too poor to ask if she has had any symptoms or fevers. I will continue antibiotics until her mentation improves and I can ascertain if this is actually a sepsis presentation or if it was some other metabolic derangement Qualifiers: Acute respiratory failure type: with hypoxia Sepsis acute organ dysfunction status: with acute organ dysfunction Sepsis type: sepsis due to unspecified organism Severe sepsis acute organ dysfunction type: acute respiratory failure Severe sepsis shock status: unspecified Qualified Code(s): A41.9 - Sepsis, unspecified organism; R65.20 - Severe sepsis without septic shock; J96.01 - Acute respiratory failure with hypoxia (4) Urinary tract infection: Impression: Switched to cefepime given positive urine cultures. I am unsure if this is a acute infection or if this is merely colonization. Continue antibiotics until her mentation improves and we can ascertain if she is been symptomatic with this Qualifiers: Encounter type: initial encounter Indwelling urinary catheter type: i ndwelling urethral catheter Urinary tract infection type: catheter-associated UTI Qualified Code(s): T83.511A - Infection and inflammatory reaction due to indwelling urethral catheter, initial encounter; N39.0 - Urinary tract infection, site not specified (5) Hypoxia: Impression: Secondary to pleural effusion, managed as above O2 as needed (6) Acute respiratory failure with hypoxia: Impression: As above, Stable on 2 L now (7) Chronic indwelling Good catheter: Impression: Maintain Good (8) Leukocytosis: Impression: Manage possible UTI/sepsis as above Qualifiers: Leukocytosis type: other Qualified Code(s): D72.828 - Other elevated white blood cell count (9) Multiple sclerosis: Impression: Continue home regimen
[2024-05-25] MEDS: cefTRIAXone 1 GM VIAL IVP SCH (12:43)
[2024-05-25] MEDS: SODIUM CHLORIDE 0.9% 1,000 ML IV SCH (12:44)
[2024-05-25] MEDS: cefTRIAXone 1 GM VIAL IVP STA (12:44)
[2024-05-25] MEDS: LACTATED RINGERS 1,000 ML IV SCH (14:34)
[2024-05-25] MEDS: POTASSIUM CHLOR 10 MEQ/100 ML 10 MEQ/100 ML BAG IV SCH (14:35)
[2024-05-25] MEDS: KETOROLAC 15 MG/ML VIAL IVP PRN (14:53)
[2024-05-25 16:00] LABS: ABSOLUTE RETICS # AUTO 0.101 10^6/uL (0.020-0.110); RED BLOOD COUNT 3.96 10^6/uL (4.20-5.40); RETICULOCYTE COUNT % (AUTO) 2.54 % (0.5-2.3)
[2024-05-25 16:16] LABS: IRON < 10 ug/dL (50-212); TOTAL IRON BINDING CAPACITY 349 ug/dL (250-450); TRANSFERRIN 249 mg/dL (203-362)
[2024-05-26 06:10] LABS: BASOPHILS % (AUTO) 0.4 %; HCT - HEMATOCRIT 29.7 % (37.0-47.0); HGB - HEMOGLOBIN 8.1 g/dL (12.0-16.0); MEAN CORPUSCULAR HEMOGLOBIN 21.8 pg (27.0-31.0); MEAN CORPUSCULAR HGB CONC 27.3 g/dL (32.0-36.0); MEAN CORPUSCULAR VOLUME 79.8 fL (81.0-99.0); MONOCYTES % (AUTO) 5.3 %; NEUTROPHILS % (AUTO) 87.4 %; PLT - PLATELET COUNT 731 10^3/uL (130-450); RED BLOOD COUNT 3.72 10^6/uL (4.20-5.40); RED CELL DISTRIBUTION WIDTH 18.8 % (12.0-15.0); WHITE BLOOD COUNT 22.4 x10^3/uL (4.8-10.8)
[2024-05-26 06:17] LABS: ABNORMAL LYMPHS % (MANUAL) 0 %; BAND NEUTROPHILS % (MANUAL) 0 %
[2024-05-26 06:23] LABS: CALCIUM 8.5 mg/dL (8.5-10.3); CREATININE 0.3 mg/dL (0.6-1.3)
[2024-05-26 06:53] LABS: DIFFERENTIAL COMMENT MANUAL DIFFERENTIAL; LYMPHOCYTES # (MANUAL) 1.1 10^3/uL (1.5-3.5); LYMPHOCYTES % (MANUAL) 5 %; MONOCYTES # (MANUAL) 0.7 10^3/uL (0.0-1.0); NEUTROPHILS # (MANUAL) 20.6 10^3/uL (1.5-6.6); PLATELET ESTIMATE, MANUAL INCREASED (>450,000) (NORMAL); PLATELET MORPHOLOGY NORMAL APPEARANCE (NORMAL); RBC MORPHOLOGY (MULTIPLE) NORMAL APPEARANCE (NORMAL)
[2024-05-26 08:38] LABS: ABG HCO3 33.4 mmol/L (22.0-26.0); ABG PO2 148 mmHg (80-100)
[2024-05-26 08:39] LABS: ABG BASE EXCESS 3.1 mmol/L (-2.0-3.0); ABG OXYGEN SATURATION 99 % (94-98); ABG TCO2 36.4 MMOL/L (21.0-29.0); ALLEN TEST POSITIVE
[2024-05-26 08:41] LABS: ABG PCO2 97 mmHg (34-45); ABG PH 7.15 (7.35-7.45)
--- NOTE | 2024-05-26 08:58 | PROVIDER PROGRESS NOTE ---
Subjective Prog Note Date Prog Note Date: 05/26/24 Subjective Pt reports feeling: Worse Subjective: Patient now on 15 L oxygen mask. She will look at me when I talk to her and attempt answer but she cannot form full sentences Current Medications Current Medications Current Medications: Current Medications Generic Name Dose Route Start Last Admin Trade Name Freq PRN Reason Stop Dose Admin Albuterol 2.5 mg 05/24/24 18:55 Albuterol Neb 2.5 Mg/3 Ml INH RTQ4H PRN Shortness Of Air/Wheezing Bisacodyl 10 mg 05/24/24 18:39 Bisacodyl 10 Mg Supp [place] DAILY PRN constipation Heparin Sodium (Porcine) 5,000 unit 05/24/24 21:00 05/25/24 20:41 Heparin 5,000 Unit/Ml Vial SUBQ 5,000 unit BID JOSE FRANCISCO Administration Cefepime HCl 2 gm/ Sodium 100 mls @ 200 mls/hr 05/25/24 10:00 05/26/24 08:44 Chloride IV 200 mls/hr BID JOSE FRANCISCO Administration Lactated Ringer's 1,000 mls @ 75 mls/hr 05/25/24 14:00 05/26/24 04:42 Lr IV 05/27/24 13:59 75 mls/hr .[id number] JOSE FRANCISCO Administration Ketorolac Tromethamine 15 mg 05/25/24 10:11 05/25/24 14:53 Ketorolac 15 Mg/Ml Vial IVP 05/30/24 10:10 15 mg Q6HR PRN Administration Severe Pain (Level 7-10) Methylprednisolone Sodium Succinate 125 mg 05/26/24 09:00 Methylprednisolone Succinate 125 Mg/2 Ml Vial IVP 05/26/24 09:01 ONCE ONE Ondansetron HCl 4 mg 05/24/24 18:39 Ondansetron 4 Mg/2 Ml Vial IVP Q6HR PRN Nausea / Vomiting Sodium Chloride 10 ml 05/24/24 18:39 Sodium Chloride Flush 0.9% 10 Ml Syringe IVP PRN PRN NEEDED PER PROVIDER ORDERS Sodium Chloride 10 ml 05/24/24 18:39 05/26/24 04:42 Sodium Chloride Flush 0.9% 10 Ml Syringe IVP Not Given 0100,0900,1700 [facility] Objective Vital Signs/Intake & Output Reviewed Vital Signs: Yes Vital Signs: Vital Signs x48h Temp Pulse Resp BP Pulse Ox O2 Flow Rate 05/26/24 08:41 36.5 C 133 H 16 105/64 98 6 05/26/24 06:00 15 Intake & Output: Intake & Output 05/24/24 05/25/24 05/26/24 05/27/24 05:59 05:59 05:59 05:59 Intake Total 1800 / 1800 2387 / 2387 Output Total 350 / 350 1100 / 1100 300 / 300 Balance 1450 / 1450 1287 / 1287 -300 / -300 Weight (kg) 60 kg Objective General Appearance: positive Lethargic Eyes Bilateral: positive Normal inspection and PERRL ENT: positive ENT inspection nml Neck: positive Nml inspection Respiratory: positive Chest non-tender; negative Breath sounds nml (Absent on right) Cardiovascular: positive Tachycardia Abdomen: positive Tenderness (Mild, vague tenderness throughout abdomen on palpation) Skin: positive Color nml and Other Extremities: positive No pedal edema Neurologic/Psychiatric: positive Disoriented to person, Disoriented to place and Disoriented to time Lab Results 05/26/24 05:57 05/26/24 05:57 Other Labs: Lab Results x24hrs 05/26/24 05/26/24 05/25/24 Range/Units 08:30 05:57 15:53 WBC 22.4 H (4.8-10.8) x10^3/uL RBC 3.72 L 3.96 L (4.20-5.40) 10^6/uL Hgb 8.1 L (12.0-16.0) g/dL Hct 29.7 L (37.0-47.0) % MCV 79.8 L (81.0-99.0) fL MCH 21.8 L (27.0-31.0) pg MCHC 27.3 L (32.0-36.0) g/dL RDW 18.8 H (12.0-15.0) % Plt Count 731 H (130-450) 10^3/uL MPV 9.0 (7.9-10.8) fL Reticulocyte % (Auto) 2.54 H (0.5-2.3) % Neut # (Auto) Not Reportable Lymph # (Auto) Not Reportable [place] # (Auto) Not Reportable Eos # (Auto) Not Reportable Baso # (Auto) Not Reportable Absolute Nucleated RBC Not Reportable Total Counted 100 Band Neuts % (Manual) 0 (0 - 10) % Abnorm Lymph % (Manual) 0 % Nucleated RBC % Not Reportable Neutrophils # (Manual) 20.6 H (1.5-6.6) 10^3/uL Lymphocytes # (Manual) 1.1 L (1.5-3.5) 10^3/uL Monocytes # (Manual) 0.7 (0.0-1.0) 10^3/uL Eosinophils # (Manual) 0.0 (0-0.7) 10^3/uL Basophils # (Manual) 0.0 (0-0.1) 10^3/uL Differential Comment MANUAL DIFFERENTIAL Platelet Estimate INCREASED (>450,000) (NORMAL) Platelet Morphology NORMAL APPEARANCE (NORMAL) RBC Morph Micro Appear NORMAL APPEARANCE (NORMAL) Absolute Retic 0.101 (0.020-0.110) 10^6/uL Bld Gas Analysis Time 0835 Sample Site RIGHT RADIAL ABG pH 7.15 L* (7.35-7.45) ABG pCO2 97 H* (34-45) mmHg ABG pO2 148 H (80-100) mmHg ABG HCO3 33.4 H (22.0-26.0) mmol/L ABG Total CO2 36.4 H (21.0-29.0) MMOL/L ABG O2 Saturation 99 H (94-98) % ABG Base Excess 3.1 H (-2.0-3.0) mmol/L Michele Test POSITIVE O2 Delivery Device NON REBREATHER MASK O2 Liters/Min 15.00 LPM FiO2 100.00 Sodium 139 (135-145) mmol/L Potassium 4.0 (3.5-4.5) mmol/L Chloride 100 L (101-111) mmol/L Carbon Dioxide 32 (21-32) mmol/L Anion Gap 7.0 (6-13) BUN 23 H (6-20) mg/dL Creatinine 0.3 L (0.6-1.3) mg/dL Estimated GFR (MDRD) 216 (>89) Glucose 91 (74-104) mg/dL Calcium 8.5 (8.5-10.3) mg/dL Iron < 10 L (50-212) ug/dL TIBC 349 (250-450) ug/dL % Saturation TNP Transferrin 249 (203-362) mg/dL Lactate Dehydrogenase 85 L (140-271) IU/L Troponin I High Sens 8.4 (2.3-14.8) ng/L Vitamin B12 1232 H (180-914) pg/mL Sepsis Event Note (H) Evaluation Current Stage of Sepsis: Septic shock Possible source of Sepsis: positive Pulmonary and Genitourinary Assessment/Plan Problem List (1) Pleural effusion: Impression: CT chest with large pleural effusion which opacifies the entire right hemithorax with complete atelectasis of the right lung. Fluctuance and the opacity of the effusion suggests it is blood-tinged. Multiple discussions have been had with family by prior provider. Family reports that she would not want to undergo any procedures and the only management she would want is antibiotics and supportive IV fluids. Her mentation is somewhat improved today, and I have passed this onto family. I will continue to optimize her medically, and will readdress this if and when her mentation improves Today, her oxygen status is worsening. Her mentation is also declining. I have ordered a chest x-ray and ABG ABG 7.154/97.1/147.6/33.4 on 15 L O2. Discussed case with RT, they report she is not a candidate for BiPAP. I agree with this. I will call her son and update him on her situation. She is significantly declining, and I anticipate she does not have much time left I will note the discussion with her son in another note (2) Metabolic encephalopathy: Impression: Patient is chronically ill and very medically complex. There are a multitude of reasons why she could be confused. She has a documented history of MS. She met sepsis criteria on admission, but unsure if this is actually a septic picture. She has been afebrile. She has had increased respiratory rate and pulse, but this is likely secondary to a nonfunctioning right lung. She did have some electrolyte abnormalities such as low sodium which has corrected with IV saline. Her mentation is improved today, she tracks with her eyes and will answer some simple questions. I will continue supportive care with IV fluid resuscitation. I have ordered a nursing swallow screen to see if she can tolerate p.o. Nurse was unable to complete this due to poor mentation. If this does not resolve, she may need palliative care consult for hospice placement as this could possibly be a progression of dementia/MS 05/26/2024: Mentation continues to decline, will consider palliative care consult after discussion with son. (3) Sepsis: Impression: Treating this is sepsis given her leukocytosis of 19, hypotension, altered mental status. Unsure if this is actually sepsis as she has been afebrile. Her UA did show Pseudomonas, but she has a chronic indwelling Good and this could be colonization. Her mentation is too poor to ask if she has had any symptoms or fevers. I will continue antibiotics until her mentation improves and I can ascertain if this is actually a sepsis presentation or if it was some other metabolic derangement. 05/26/2024 her mentation has worsened. Her WBC is up to 22.4 in spite of IV cefepime. Qualifiers: Acute respiratory failure type: with hypoxia Sepsis acute organ dysfunction status: with acute organ dysfunction Sepsis type: sepsis due to unspecified organism Severe sepsis acute organ dysfunction type: acute respiratory failure Severe sepsis shock status: unspecified Qualified Code(s): A41.9 - Sepsis, unspecified organism; R65.20 - Severe sepsis without septic shock; J96.01 - Acute respiratory failure with hypoxia (4) Urinary tract infection: Impression: Switched to cefepime given positive urine cultures. I am unsure if this is a acute infection or if this is merely colonization. Continue antibiotics until her mentation improves and we can ascertain if she is been symptomatic with this Qualifiers: Encounter type: initial encounter Indwelling urinary catheter type: i ndwelling urethral catheter Urinary tract infection type: catheter-associated UTI Qualified Code(s): T83.511A - Infection and inflammatory reaction due to indwelling urethral catheter, initial encounter; N39.0 - Urinary tract infection, site not specified (5) Hypoxia: Impression: Secondary to pleural effusion, managed as above O2 as needed (6) Acute respiratory failure with hypoxia: Impression: As above, on 15 L O2. ABG now with hypercapnia I have added Solu-Medrol 125 mg x 1. I doubt this will change her overall prognosis, but it may help with some of her CO2 retention (7) Chronic indwelling Good catheter: Impression: Maintain Good (8) Leukocytosis: Impression: Manage possible UTI/sepsis as above Qualifiers: Leukocytosis type: other Qualified Code(s): D72.828 - Other elevated white blood cell count (9) Multiple sclerosis: Impression: Continue home regimen (10) Chronic anemia: Impression: Her iron level was undetectably low yesterday I ordered iron infusion
[2024-05-26] MEDS ORDERED: HALOPERIDOL 5 MG/ML VIAL IVP PRN (09:05)
[2024-05-26] MEDS: methylPREDNISolone SUCCINATE 125 MG/2 ML VIAL IVP ONE (09:12)
--- NOTE | 2024-05-26 09:15 | MISCELLANEOUS PROVIDER NOTE ---
Miscellaneous Provider Note - Note: I discussed her clinical worsening with her sister and son over the phone. I told them about her increasing oxygen needs. I told them that I had ordered chest x-ray and ABG, and the ABG shows significant CO2 retention. They say that she has been on hospice before, and that her mental status has been waxing and waning over the past few years but with the significant decline over the past 6 months. Told him that without aggressive intervention I think she will soon. They confirmed that she would not want aggressive intervention, and the decision was made to make her comfort care at this time. I have discontinued antibiotics. I gave her a one-time dose of Solu-Medrol prior to this conversation to see if it would help with CO2 retention. I had do not think it will significantly change her prognosis. Her son lives out of state, but her sister is somewhat local. I encouraged her to come to the hospital if she is able, and told her I would be available to meet with her when she gets here.
--- NOTE | 2024-05-26 12:57 | XRAY Report ---
PROCEDURE: XR Chest 1V INDICATIONS: Worsening oxygenation TECHNIQUE: One view of the chest was acquired. COMPARISON: 05/24/2024 FINDINGS: Surgical changes and devices: None. Lungs and pleura: Complete opacification of the right hemithorax as seen previously. The left lung, to the extent it is seen remains aerated. Air bronchogram in the retrocardiac region may indicate ate lectasis. No significant left effusion or pneumothorax. Mediastinum: Unchanged. Bones and chest wall: There are no bone lesions. Visible soft tissues are within normal limits. No s ubcutaneous emphysema. IMPRESSION: No significant change since the prior chest x-ray demonstrating complete right lung opacification. Reviewed by: Tyesha Dorsey MD on 05/26/2024 12:56 PM PST Approved by: Tyesha Dorsey MD on 05/26/2024 12:56 PM PST Station ID: [id number]
[2024-05-26] MEDS: MORPHINE 2 MG/ML CARPUJECT IVP PRN (15:11)
[2024-05-27 05:49] LABS: BASOPHILS % (AUTO) 0.1 %; HCT - HEMATOCRIT 26.3 % (37.0-47.0); HGB - HEMOGLOBIN 7.4 g/dL (12.0-16.0); LYMPHOCYTES # (AUTO) 1.2 10^3/uL (1.5-3.5); LYMPHOCYTES % (AUTO) 8.7 %; MEAN CORPUSCULAR HEMOGLOBIN 22.4 pg (27.0-31.0); MEAN CORPUSCULAR HGB CONC 28.1 g/dL (32.0-36.0); MEAN CORPUSCULAR VOLUME 79.5 fL (81.0-99.0); MEAN PLATELET VOLUME 8.9 fL (7.9-10.8); MONOCYTES # (AUTO) 1.5 10^3/uL (0.0-1.0); MONOCYTES % (AUTO) 10.9 %; NEUTROPHILS # (AUTO) 11.1 10^3/uL (1.5-6.6); NEUTROPHILS % (AUTO) 79.5 %; NRBC ABSOLUTE COUNT (AUTO) 0.04 x10^3/uL; NUCLEATED RED BLOOD CELLS AUTO 0.3 /100WBC; PLT - PLATELET COUNT 649 10^3/uL (130-450); RED BLOOD COUNT 3.31 10^6/uL (4.20-5.40); RED CELL DISTRIBUTION WIDTH 19.8 % (12.0-15.0)
[2024-05-27] MEDS: SODIUM CHLORIDE FLUSH 0.9% 10 ML SYRINGE IVP PRN (05:49)
[2024-05-27 05:59] LABS: CALCIUM 8.8 mg/dL (8.5-10.3); CREATININE 0.4 mg/dL (0.6-1.3); POTASSIUM 3.9 mmol/L (3.5-4.5)
[2024-05-27] MEDS: ALBUTEROL NEB 2.5 MG/3 ML INH PRN (07:18)
[2024-05-27] MEDS: SCOPOLAMINE PATCH TOP SCH (16:42)
[2024-05-27 17:14] VITALS: O2SAT 88
--- NOTE | 2024-05-27 17:56 | PROVIDER PROGRESS NOTE ---
Subjective Prog Note Date Prog Note Date: 05/27/24 Subjective Pt reports feeling: Worse Subjective: Hardly responsive at all. On comfort care only Current Medications Current Medications Current Medications: Current Medications Generic Name Dose Route Start Last Admin Trade Name Freq PRN Reason Stop Dose Admin Albuterol 2.5 mg 05/24/24 18:55 05/27/24 07:18 Albuterol Neb 2.5 Mg/3 Ml INH 2.5 mg RTQ4H PRN Administration Shortness Of Air/Wheezing Bisacodyl 10 mg 05/24/24 18:39 Bisacodyl 10 Mg Supp WI DAILY PRN constipation Haloperidol 0.5 mg 05/26/24 09:05 Haloperidol 5 Mg/Ml Vial IVP Q6H PRN Nausea / Vomiting Heparin Sodium (Porcine) 5,000 unit 05/24/24 21:00 05/27/24 09:15 Heparin 5,000 Unit/Ml Vial SUBQ 5,000 unit BID JOSE FRANCISCO Administration Ketorolac Tromethamine 15 mg 05/25/24 10:11 05/27/24 07:06 Ketorolac 15 Mg/Ml Vial IVP 05/30/24 10:10 15 mg Q6HR PRN Administration Severe Pain (Level 7-10) Morphine Sulfate 2 mg 05/26/24 09:05 05/27/24 10:48 Morphine 2 Mg/Ml Carpuject IVP 2 mg Q2HR PRN Administration Severe Pain (Level 7-10)/ SOA Ondansetron HCl 4 mg 05/24/24 18:39 Ondansetron 4 Mg/2 Ml Vial IVP Q6HR PRN Nausea / Vomiting Scopolamine HBr 1 patch 05/27/24 16:00 05/27/24 16:42 Scopolamine Patch TOP 1 patch Q3D JOSE FRANCISCO Administration Sodium Chloride 10 ml 05/24/24 18:39 05/27/24 07:07 Sodium Chloride Flush 0.9% 10 Ml Syringe IVP 10 ml PRN PRN Administration NEEDED PER PROVIDER ORDERS Sodium Chloride 10 ml 05/24/24 18:39 05/27/24 16:43 Sodium Chloride Flush 0.9% 10 Ml Syringe IVP 10 ml 0100,0900,1700 JOSE FRANCISCO Administration Objective Vital Signs/Intake & Output Reviewed Vital Signs: Yes Vital Signs: Vital Signs x48h Temp Pulse Resp BP Pulse Ox O2 Flow Rate 05/27/24 17:11 37 C 139 H 12 105/59 L 88 L 3 Intake & Output: Intake & Output 05/25/24 05/26/24 05/27/24 05/28/24 05:59 05:59 05:59 05:59 Intake Total 1800 / 1800 2387 / 2387 775 / 775 Output Total 350 / 350 1100 / 1100 1025 / 1025 150 / 150 Balance 1450 / 1450 1287 / 1287 -250 / -250 -150 / -150 Weight (kg) 60 kg Objective General Appearance: positive Lethargic ENT: positive ENT inspection nml Neck: positive Nml inspection Respiratory: positive Chest non-tender; negative Breath sounds nml (Absent on right) Cardiovascular: positive Tachycardia Abdomen: positive Tenderness (Mild, vague tenderness throughout abdomen on palpation) Skin: positive Color nml and Other Extremities: positive No pedal edema Neurologic/Psychiatric: positive Other (Unresponsive with agonal breaths) Lab Results 05/27/24 05:23 05/27/24 05:23 Other Labs: Lab Results x24hrs 05/27/24 Range/Units 05:23 WBC 14.0 H (4.8-10.8) x10^3/uL RBC 3.31 L (4.20-5.40) 10^6/uL Hgb 7.4 L (12.0-16.0) g/dL Hct 26.3 L (37.0-47.0) % MCV 79.5 L (81.0-99.0) fL MCH 22.4 L (27.0-31.0) pg MCHC 28.1 L (32.0-36.0) g/dL RDW 19.8 H (12.0-15.0) % Plt Count 649 H (130-450) 10^3/uL MPV 8.9 (7.9-10.8) fL Neut # (Auto) 11.1 H (1.5-6.6) 10^3/uL Lymph # (Auto) 1.2 L (1.5-3.5) 10^3/uL Darke # (Auto) 1.5 H (0.0-1.0) 10^3/uL Eos # (Auto) 0.0 (0.0-0.7) 10^3/uL Baso # (Auto) 0.0 (0.0-0.1) 10^3/uL Absolute Nucleated RBC 0.04 x10^3/uL Nucleated RBC % 0.3 /100WBC Sodium 143 (135-145) mmol/L Potassium 3.9 (3.5-4.5) mmol/L Chloride 102 (101-111) mmol/L Carbon Dioxide 35 H (21-32) mmol/L Anion Gap 6.0 (6-13) BUN 36 H (6-20) mg/dL Creatinine 0.4 L (0.6-1.3) mg/dL Estimated GFR (MDRD) 155 (>89) Glucose 127 H (74-104) mg/dL Calcium 8.8 (8.5-10.3) mg/dL Sepsis Event Note (H) Evaluation Current Stage of Sepsis: Septic shock Possible source of Sepsis: positive Pulmonary and Genitourinary Assessment/Plan Problem List (1) Comfort measures only status: Impression: Placed on comfort measures only status yesterday, with as needed IV morphine and Haldol Added scopolamine today to help with secretion management Today, agonal respirations, hardly responsive at all Her sister visited today, my condolences were offered (2) Pleural effusion: Impression: CT chest with large pleural effusion which opacifies the entire right hemithorax with complete atelectasis of the right lung. Fluctuance and the opacity of the effusion suggests it is blood-tinged. Multiple discussions have been had with family by prior provider. Family reports that she would not want to undergo any procedures and the only management she would want is antibiotics and supportive IV fluids. Her mentation is somewhat improved today, and I have passed this onto family. I will continue to optimize her medically, and will readdress this if and when her mentation improves Today, her oxygen status is worsening. Her mentation is also declining. I have ordered a chest x-ray and ABG ABG 7.154/97.1/147.6/33.4 on 15 L O2. Discussed case with RT, they report she is not a candidate for BiPAP. I agree with this. I will call her son and update him on her situation. She is significantly declining, and I anticipate she does not have much time left 05/27/2024: Continues on comfort measures only. Placed on nasal cannula for comfort instead of oxygen mask. Scopolamine added (3) Metabolic encephalopathy: Impression: Patient is chronically ill and very medically complex. There are a multitude of reasons why she could be confused. She has a documented history of MS. She met sepsis criteria on admission, but unsure if this is actually a septic picture. She has been afebrile. She has had increased respiratory rate and pulse, but this is likely secondary to a nonfunctioning right lung. She did have some electrolyte abnormalities such as low sodium which has corrected with IV saline. Her mentation is improved today, she tracks with her eyes and will answer some simple questions. I will continue supportive care with IV fluid resuscitation. I have ordered a nursing swallow screen to see if she can tolerate p.o. Nurse was unable to complete this due to poor mentation. If this does not resolve, she may need palliative care consult for hospice placement as this could possibly be a progression of dementia/MS 05/26/2024: Mentation continues to decline, will consider palliative care consult after discussion with son. 05/27/2024 comfort measures only (4) Sepsis: Impression: Treating this is sepsis given her leukocytosis of 19, hypotension, altered mental status. Unsure if this is actually sepsis as she has been afebrile. Her UA did show Pseudomonas, but she has a chronic indwelling Good and this could be colonization. Her mentation is too poor to ask if she has had any symptoms or fevers. I will continue antibiotics until her mentation improves and I can ascertain if this is actually a sepsis presentation or if it was some other metabolic derangement. 05/26/2024 her mentation has worsened. Her WBC is up to 22.4 in spite of IV cefepime. Qualifiers: Acute respiratory failure type: with hypoxia Sepsis acute organ dysfunction status: with acute organ dysfunction Sepsis type: sepsis due to unspecified organism Severe sepsis acute organ dysfunction type: acute respiratory failure Severe sepsis shock status: unspecified Qualified Code(s): A41.9 - Sepsis, unspecified organism; R65.20 - Severe sepsis without septic shock; J96.01 - Acute respiratory failure with hypoxia (5) Urinary tract infection: Impression: Switched to cefepime given positive urine cultures. I am unsure if this is a acute infection or if this is merely colonization. Continue antibiotics until her mentation improves and we can ascertain if she is been symptomatic with this Qualifiers: Encounter type: initial encounter Indwelling urinary catheter type: i ndwelling urethral catheter Urinary tract infection type: catheter-associated UTI Qualified Code(s): T83.511A - Infection and inflammatory reaction due to indwelling urethral catheter, initial encounter; N39.0 - Urinary tract infection, site not specified (6) Hypoxia: Impression: Secondary to pleural effusion, managed as above O2 as needed (7) Acute respiratory failure with hypoxia: Impression: As above, on 15 L O2. ABG now with hypercapnia I have added Solu-Medrol 125 mg x 1. I doubt this will change her overall prognosis, but it may help with some of her CO2 retention (8) Chronic indwelling Good catheter: Impression: Maintain Good (9) Leukocytosis: Impression: Manage possible UTI/sepsis as above Qualifiers: Leukocytosis type: other Qualified Code(s): D72.828 - Other elevated white blood cell count (10) Multiple sclerosis: Impression: Continue home regimen (11) Chronic anemia: Impression: Her iron level was undetectably low yesterday I ordered iron infusion
--- NOTE | 2024-05-28 07:35 | Discharge Summary ---
Discharge Summary Admit Date: 05/24/24 Discharge Date: 05/27/24 Discharging Provider: Camilo Good NP Code Status: Do Not Attempt Resuscitation DIAGNOSES Admission Diagnoses: Pleural effusion UTI Neurogenic bladder Sepsis with metabolic encephalopathy Leukocytosis Multiple sclerosis Discharge Diagnoses with Status of Each Condition: Comfort measures only statusactive Pleural effusionactive UTIchronic Neurogenic bladderchronic Sepsis with metabolic encephalopathyactive Leukocytosisactive MSchronic HPI History of Present Illness: 74-year-old female who presented to the ED via ambulance from her care facility for altered level of consciousness and hypoxia. She had a history of dementia, with indwelling Good catheter and repeated episodes of urosepsis. She had been seen previously by palliative care given her history of MS. She was found to have a large right sided pleural effusion with complete atelectasis of the right lung. Hospitalist was contacted for admission HOSPITAL COURSE Hospital Course: She was admitted to the hospital for acute hypoxic respiratory failure. And multiple care discussions with family, it was decided that she would not want any invasive interventions. Her condition continued to worsen, and she was placed on comfort care ALLERGIES Allergies Allergy/AdvReac Type Severity Reaction Status Date / Time nystatin Allergy Unknown Verified 05/24/24 10:27 Penicillins Allergy Unknown Verified 05/24/24 10:27 MEDICATIONS Ambulatory Orders Medication Instructions Recorded Confirmed cholecalciferol (vitamin D3) 50 2,000 unit PO DAILY 01/28/18 05/24/24 mcg (2,000 unit) capsule (Vitamin D3) calcium carbonate 1,000 mg PO Q4HR PRN Heartburn 11/09/18 05/24/24 sennosides 8.6 mg tablet (Senna 8.6 mg PO BID PRN Constipation 06/07/19 05/24/24 Lax) albuterol sulfate 90 mcg/actuation 2 puff inhalation Q4H PRN 08/23/20 05/24/24 aerosol inhaler (Ventolin HFA) Shortness Of Air/Wheezing fluticasone propionate 115 1 puff inhalation BID 12/30/20 05/24/24 mcg-salmeterol 21 mcg/actuation HFA inhaler (Advair HFA) hydrochlorothiazide 50 mg tablet 50 mg PO DAILY 12/30/20 05/24/24 d-mannose 500 mg capsule (AZO 1,000 mg PO DAILY 01/26/21 05/24/24 D-Mannose) mineral oil (Fleet Mineral Oil 1 ea RC DAILY PRN Constipation 05/21/21 05/24/24 enema) acetaminophen 325 mg tablet (Aphen) 650 mg PO Q4H PRN Mild Pain Or 01/30/22 05/24/24 Fever>38c(100.4f) ferrous sulfate 325 mg (65 mg 325 mg PO DAILYWM 01/30/22 05/24/24 iron) tablet,delayed release atorvastatin 40 mg tablet 40 mg PO QPM 02/03/22 05/24/24 baclofen 10 mg tablet 10 mg PO TID 02/03/22 05/24/24 fentanyl 25 mcg/hr transdermal 1 ea transdermal Q3D 10/12/22 05/24/24 patch docusate sodium 100 mg capsule 100 mg PO 0800,1200 10/13/22 05/24/24 (Dulcolax Stool Softener (docusate)) guaifenesin 100 mg/5 mL oral 5 ml PO Q5H PRN Cough 10/13/22 05/24/24 liquid (Chest Congestion Relief) polyethylene glycol 3350 17 gram 17 g PO DAILY 10/13/22 05/24/24 oral powder packet aspirin 81 mg tablet,delayed 81 mg PO DAILY 04/16/23 05/24/24 release [id number]-[id number]-[id number] 1 tab PO DAILY #30 tabs 04/27/23 05/24/24 fumarate 19 mg-folic acid 400 mcg tablet (Therapeutic-M) naloxone 4 mg/actuation nasal 1 inh inhalation PRN PRN As Needed 12/14/23 05/24/24 spray (Narcan) Per Provider Orders bisacodyl 10 mg rectal suppository 10 mg CO DAILY PRN constipation 05/24/24 05/24/24 (Dulcolax (bisacodyl)) carboxymethylcellulose sodium 1 % 2 drp ophthalmic (eye) TID dry eyes 05/24/24 05/24/24 eye gel in a dropperette (Refresh Celluvisc) duloxetine 30 mg capsule,delayed 30 mg PO DAILY for depression 05/24/24 05/24/24 release oxybutynin chloride 10 mg 10 mg PO DAILY 05/24/24 05/24/24 tablet,extended release 24 hr potassium chloride 10 mEq 40 meq PO DAILY 05/24/24 05/24/24 capsule,extended release PHYSICAL EXAM AT DISCHARGE General Appearance: positive Other () LABS 05/27/24 05:23 05/27/24 05:23 DIAGNOSTIC IMAGING Diagnostic Imaging Results: Final report reviewed and Read contemporaneously Diagnostic Imaging Results Comments: CT chest with large pleural effusion opacifies the right hemithorax with complete atelectasis of the right lung. Trace hyperdense material posteriorly suggest the effusion may be blood-tinged. Mild leftward mediastinal shift. Also with lucency lesion at the lateral aspect of the right first rib secondary to subacute fracture versus metastatic disease or myeloma versus primary osseous lesion Chest x-rayNo significant change from prior, complete right lung opacification SEPSIS Current Stage of Sepsis: Septic shock Possible source of Sepsis: Pulmonary and Genitourinary TIME SPENT Time Spent in Discharge (Minutes): 10 Discharge Plan Discharge Patient Disposition: 20 Print Language: Chinese Date/Time: 05/27/24 20:05
== END 2024-05-27 20:05 | disposition expired | DRG 698 ==
LOC: ED 10:11 → MS2 16:20
PROVIDERS: ADMIT Physician Assistant Medical; ATTEND Physician Assistant Medical
DX: G93.41 Metabolic encephalopathy; J96.01 Acute respiratory failure with hypoxia; J90 Pleural effusion, not elsewhere classified; J98.11 Atelectasis; N31.9 Neuromuscular dysfunction of bladder, unspecified; N39.0 Urinary tract infection, site not specified; F51.5 Nightmare disorder; Z66 Do not resuscitate; T83.511A Infection and inflammatory reaction due to indwelling urethral catheter, initial encounter; F03.90 Unspecified dementia, unspecified severity, without behavioral disturbance, psychotic disturbance, mood disturbance, and anxiety; K59.2 Neurogenic bowel, not elsewhere classified; R65.21 Severe sepsis with septic shock; A41.9 Sepsis, unspecified organism; D64.9 Anemia, unspecified; G89.29 Other chronic pain; R65.20 Severe sepsis without septic shock; Z79.899 Other long term (current) drug therapy; I05.0 Rheumatic mitral stenosis; Z87.891 Personal history of nicotine dependence; I95.9 Hypotension, unspecified; Z74.01 Bed confinement status; G35 Multiple sclerosis